=== PATIENT | female | born 1945 | race Caucasian/White ===

== ENCOUNTER 2023-06-24 16:42 | Outpatient (CLI) | payer MEDICARE, BC, SELFPAY | END 2023-06-24 16:43 | disposition home or self-care (01) | LOC: AMB 06-26 09:44 | PROVIDERS: PCP Nurse Practitioner Family; Visit Provider Emergency Medicine Emergency Medical Services | DX: R42 Dizziness and giddiness (principal) | CPT/HCPCS: A0425; A0427 ==

== ENCOUNTER 2023-06-24 17:13 | Emergency (ER) | payer MEDICARE, BC, SELFPAY ==
[2023-06-24 17:34] VITALS: BP 143/76; PULSE 152; RESP 18; TEMP 36.7; O2SAT 97; BMI 31.7
[2023-06-24 18:03] LABS: Basophils Absolute Auto 0.06 K/uL (0.00-0.30); Basophils Percent Auto 1.2 % (0.0-3.0); Eosinophils Absolute Auto 0.22 K/uL (0.00-0.50); Eosinophils Percent Auto 4.4 % (0.0-7.0); Hematocrit 38.5 % (33.0-51.0); Hemoglobin* 11.8 gm/dL (12.0-16.0); Lymphocytes Absolute Auto 1.08 K/uL (0.90-2.90); Lymphocytes Percent Auto 21.5 % (20-44); Mean Corpuscular HGB Conc 31 gm/dL (32-36); Mean Corpuscular Hemoglobin 29 pg (26-34); Mean Corpuscular Volume 96 fL (80-100); Neutrophils Absolute Auto 3.26 K/uL (1.7-7.0); Neutrophils Percent Auto 64.9 % (42.0-72.0); Platelet Count* 216 K/uL (140-440); RDW Coefficient of Variation % 15.7 % (11.5-15.5); Red Blood Count 4.02 m/uL (4.00-5.20); White Blood Count* 5.02 K/uL (4.50-11.00)
--- OUTSIDE RECORDS SUMMARY | 2023-06-24 18:09 | XMS_ITS ---
Author Name Unknown Organization [facility] Address [address] [place] [address] Care Team Providers Care Senior Quality Analyst Name Role Phone Unavailable Unavailable Unavailable Surgery Details Not on file Complications Check Surgery Details section. Procedure Estimated Blood Loss Check Surgery Details section. Procedure Findings Check Surgery Details section. Procedure Specimens Taken Check Surgery Details section.
--- OUTSIDE RECORDS SUMMARY | 2023-06-24 18:09 | XMS_ITS | Clinical Summary ---
Author Name Unknown Organization [facility] Address [place], [place] [address] Care Team Providers Care Personal Development Coach Name Role Phone Allyn Joyner MD Primary Care Provi kristen Allergies Active Allergy Reactions Criticality Noted Date Comments Clonidine *Unknown - Pt Doesn't Remember 02/09 Penicillin *Unknown - Pt Doesn't Remember 02/09 Medications Medication Sig Dispensed Refills Start Date End Date Status allopurinol (ZYLOPRIM) 100 mg tablet Take 100 mg by mouth once daily. 0 Active aspirin (ECOTRIN) 81 mg enteric coated tablet Take 81 mg by mouth once daily. 0 Active Calcium Acetate (PHOS-LO) 667 mg capsule Take 667 mg by mouth 3 times daily with meals. 0 Active carvedilol (COREG) 25 mg tablet Take 25 mg by mouth 2 times daily. 0 Active gabapentin (NEURONTIN) 100 mg capsule Take 100 mg by mouth 3 times daily. 0 Active insulin glargine (LANTUS SOLOSTAR PEN; BASAGLAR KWIKPEN) 100 unit/mL (3 mL) pen Inject 10 Units subcutaneous before bedtime. 0 Active oxyCODONE (ROXICODONE) 5 mg capsule Take 5 mg by mouth every 4 hours if needed for Pain. as needed for back pain 0 Active pravastatin (PRAVACHOL) 20 mg tablet Take 20 mg by mouth once daily. 0 Active torsemide (DEMADEX) 10 mg tablet Take 10 mg by mouth 2 times daily. 0 Active ondansetron (ZOFRAN ODT) [address] 8 mg on the tongue 3 times daily. 0 Active ondansetron (ZOFRAN) 8 mg tablet Take 4 mg by mouth every 8 hours. every 8 hours as needed for nausea 0 Active glipiZIDE (GLUCOTROL) 5 mg tablet Take 2.5 mg by mouth one time. Take 2.5mg daily. 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 Respiratory Rate 18 03/18/2019 11:12 AM SOFTBALL COACH Oxygen Saturation 99% 03/18/2019 11:12 AM SOFTBALL COACH Inhaled Oxygen Concentration - - Weight - - Height - - Body Mass Index - - Plan of Treatment Health Maintenance Due Date Last Done Comments COVID-19 vaccine series (#1) 05/04/1944 Tdap 11/02/1954 Depression screening for age 12+ 1955 BMI (ht and wt on same day) for age 18+ 11/02/1961 Hepatitis C screening for age 18-79 11/02/1961 Tetanus booster 1963 Zoster (shingles) series for age 50+ (1 of 2) 11/02/18 94 DEXA/DXA scan for age 65+ 11/02/2008 Pneumococcal series for age 65+ (1 of 1 - PCV) 009 Influenza for age 65+ 01/09/2023 Advance Directives Documents on File Type Date Recorded Patient Highballer Expl anation Power of Orthopedic Surgeon Care Teams Personal Development Coach Relationship Specialty Start Date End Date Allyn Joyner MD PCP - General Family Practice 02/08/19
--- OUTSIDE RECORDS SUMMARY | 2023-06-24 18:09 | XMS_ITS | Referral Summary ---
Author Name Unknown Organization [facility] Address [address] [place] [address] Care Team Providers Care Sports Teacher Name Role Phone Allyn Alfredo M.D. Primary Care Pro vider Source Comments Patient records contain information from all sites at [facility]. For routine questions regarding patient records, call [phone] during business hours, M-F 8:00 AM - 5:00 PM Central Time. Record requests for emergency care only can be directed to [phone] at any time.[facility] Encounters Date Type Department Care Team Description 06/16/2023 Orders Only [facility] PCP [facility] Allyn Alfredo M.D. 06/15/2023 Orders Only Division of Nephrology and Hypertension in [place], [place] [address] [place] [address] Wilfrid Lincoln Jr., D.OLeida 06/05/2023 Orders Only Division of Nephrology and Hypertension, [facility], in [place], [place] [address] [place] [phone] Jacklyn Mccarthy APRN, C.N.P., M.S.N. 05/27/2023 Orders Only Division of Nephrology and Hypertension in [place], [place] [address] [place] [phone] Sandra Moreno, M.S.N., R.N. 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 05/22/2023 Orders Only Division of Nephrology and Hypertension, [facility], in [place], [place] [address] [place] [address] Jacklyn Mccarthy APRN, C.NLeidaPLeida, M.S.N. 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 05/18/2023 Refill Division of Nephrology and Hypertension in [place], [place] [address] [place] [address] Wilfrid Lincoln Jr., D.O. Med Refill 05/01/2023 11:45 AM [facility] Telemedicine Department of Sleep Medicine in [place], [place] [address], [place] [address] Emilee Emanuel APRN, C.N.P., D.N.P., M.S.N. Apnea Sleep Obstructive (Primary Dx); Periodic Limb Movement Disorder 04/28/2023 Documentation Division of Nephrology and Hypertension in [place], [place] [address] [place] [address] Heather Pitts M.D., Ph.D. 04/27/2023 E-Visit Department of Family Medicine, [facility], in [address] [phone] Allyn Alfredo M.D. Insulin and diarrhea 04/27/2023 Patient Self-Triage [facility] Symptom Dental Scheduler, Provider 04/23/2023 Orders Only Division of Nephrology and Hypertension, [facility], in [place], [place] [address] [place] [phone] Jacklyn Mccarthy APRN, C.NLeidaP., M.S.N. 04/21/2023 Clinical Communication Department of Family [facility], [facility], in [address] [phone] Allyn Alfredo M.D. Form Review ([facility] ( Discharge Order 03/04/23-05/02/23) 04/16/2023 11:52 AM SKIDDER LEVER OPERATOR Anesthesia Event [facility] OR [address] [place] [phone] Livier Guerrero M.D., M.P.H. 04/16/2023 10:47 AM SKIDDER LEVER OPERATOR - 04/16/2023 12:03 PM SKIDDER LEVER OPERATOR Surgery [facility]ST [facility] OR [address] [place] [phone] Christine Warren Jr., M.D. REMOVAL PERITONEAL DIALYSIS CATHETER. 04/16/2023 8:51 AM SKIDDER LEVER OPERATOR - 04/16/2023 1:48 PM SKIDDER LEVER OPERATOR Hospital Encounter [facility] MA[facility] OR [address] [place] [phone] Christine Warren Jr., M.D. Discharge Disposition: Home or Self Care 04/14/2023 11:00 AM SKIDDER LEVER OPERATOR Nurse Only Division of Nephrology and Hypertension in [place], [place] [address] [place] [phone] Wilfrid Licnoln Jr., Delia. Beth Bush, RLeidaN. 04/14/2023 2:30 PM SKIDDER LEVER OPERATOR Comprehensive Visit Division of Pediatric Surgery in [place], [place] [address] [place] [phone] Christine Warren Jr., M.D. Chronic Kidney Disease Stage 5 Glomerular 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); Diabetes Mellitus Type 2 With Diabetic Nephropathy (HCC); Hyperparathyroidism Renal Secondary (HCC); Anemia Of Chronic Renal Disease; Dialysis Peritoneal Status (HCC) 04/14/2023 1:00 PM SKIDDER LEVER OPERATOR Comprehensive Visit Division of Vascular and Endovascular Surgery in [place], [place] [address] [place] [phone] Wilfrid Lincoln Jr., D.O. Morrison, Jonathan J, M.B., Ch.B., Ph.D. Chronic Kidney Disease Stage 5 Glomerular 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); Diabetes Mellitus Type 2 With Diabetic Nephropathy (HCC); Hyperparathyroidism Renal Secondary (HCC); Anemia Of Chronic Renal Disease; Dialysis Peritoneal Status (HCC) 04/14/2023 9:00 AM SKIDDER LEVER OPERATOR - 04/14/2023 11:59 PM SKIDDER LEVER OPERATOR Hospital Encounter Department of Radiology, [place], [place] [address] [place] [phone] Wilfrid Lincoln Jr., D.O. Chronic Kidney Disease Stage 5 Glomerular 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); Diabetes Mellitus Type 2 With Diabetic Nephropathy (HCC); Hyperparathyroidism Renal Secondary (HCC); Anemia Of Chronic Renal Disease; Dialysis Peritoneal Status (HCC); Encounter For Other Preprocedural Examination Discharge Disposition: Home or Self Care 04/08/2023 Orders Only Department of Radiology, [facility] in [address] [phone] Lydia Sommers P.A.-C., M.S. 04/08/2023 Clinical Communication Division of Pediatric Surgery in [place], [place] [address] [place] [phone] Christine Warren Jr., M.D. 04/08/2023 11:46 AM SKIDDER LEVER OPERATOR - 04/08/2023 5:50 PM SKIDDER LEVER OPERATOR Hospital Encounter Department of Radiology in [address] [phone] Wilfrid Lincoln Jr., D.O. Jundt, Michael C, M.D. Chronic Kidney Disease Stage 5 Glomerular 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); Diabetes Mellitus Type 2 With Diabetic Nephropathy (HCC); Hyperparathyroidism Renal Secondary (HCC); Anemia Of Chronic Renal Disease; Dialysis Peritoneal Status (HCC) Discharge Disposition: Home or Self Care 04/07/2023 Clinical Communication Division of Pediatric Surgery in [place], [place] [address] [place] [address] Christine Warren Jr., M.D. 04/07/2023 Documentation Division of Nephrology and Hypertension in [place], [place] [address] [place] [address] Wilfrid Lincoln Jr., D.O. 04/07/2023 Orders Only Division of Nephrology and Hypertension in [place], [place] [address] [place] [address] Wilfrid Lincoln Jr., D.O. Chronic Kidney Disease Stage 5 Glomerular 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) (Primary Dx); Diabetes Mellitus Type 2 With Diabetic Nephropathy (HCC); Hyperparathyroidism Renal Secondary (HCC); Anemia Of Chronic Renal Disease; Dialysis Peritoneal Status (HCC); Encounter For Other Preprocedural Examination 04/07/2023 Orders Only Division of Nephrology and Hypertension in [place], [place] [address] [place] [address] Wilfrid Lincoln Jr., D.O. 03/24/2023 Clinical Communication Division of Nephrology and Hypertension in [place], [place] [address] [place] [address] Wilfrid Lincoln Jr., D.O. Remote Patient Monitoring (Alert Notification: Unable to Begin Service - Patient Declining Cascaded Service/) 03/24/2023 9:35 AM SKIDDER LEVER OPERATOR - 03/24/2023 11:59 PM [facility] Hospital Encounter Division of Cardiovascular Diseases in [place], [place] [address], [place] [address] Wilfrid Lincoln Jr., D.O. Infarction Spleen Discharge Disposition: Home or Self Care from Last 3 Months Allergies Active Allergy Reactions Criticality Noted Date Comments Atorvastatin Myalgia Medium 07/15/2013 tiredness, muscle cramps Clonidine Other (see comments) 10/28/2018 Dizziness, insomnia, dry mouth Oxycodone GI intolerance 02/17/2019 Extreme vomiting Penicillins Other (see comments) 01/24/2019 Unsure (tolerated Ancef before) Medications Medication Sig Dispensed Refills Start Date End Date Status blood-glucose meter,continuous misc Use to monitor blood glucose 1 each 0 04/09/2021 Active calcium acetate,phosphat bind, (PHOSLO) 667 mg (169 mg calcium) capsule TAKE 2 CAPSULES BY MOUTH THREE TIMES A DAY WITH MEALS AND 1 CAPSULE WITH SNACKS 120 capsule 1 04/06/[address] tablet Take 1 tablet by mouth daily. 0 Active folic acid/vit B complex and C (DIALYVITE ORAL) Take 1 tablet by mouth daily. 0 Active docosahexaenoic acid/epa (FISH OIL ORAL) Take 1 capsule by mouth daily. 0 Active blood-glucose meter,continuous (Dexcom G7 Veterinarian Epidemiologist) [facility] Use as directed 3 (three) times a day. 1 each 11 07/29/2022 4 Active blood-glucose sensor (Dexcom G7 Sensor) device 1 Device as directed for 10 days. Apply to skin replace every 10 days 10 each 11 07/29/2022 4 Active BD Ultra-Fine Short Pen Needle 31 gauge x 5/16 needle Inject 4 Injection under the skin daily. 400 each 3 12/25/2022 Active pravastatin (PRAVACHOL) 40 mg tablet TAKE 1 TABLET AT BEDTIME FOR CHOLESTEROL 90 tablet 3 01/01/2023 Active gentamicin (GARAMYCIN) 0.1 % ointment Apply 1 Application topically as directed. Apply to PD catheter site - uses when changes dressing 0 Active acetaminophen (TYLENOL) 500 mg tablet Take 2 tablets (1,000 mg total) by mouth every 6 (six) hours as needed for pain. 0 04/16/2023 Active insulin glargine (Basaglar KwikPen U-100 Insulin) 100 unit/mL (3 mL) injection Inject 4 Units under the skin at bedtime. 15 mL 3 04/28/2023 4 Active sertraline (ZOLOFT) 25 mg tablet Take 1 tablet (25 mg total) by mouth daily. 90 tablet 3 05/19/2023 5 Active pramipexole (MIRAPEX) 0.125 mg tablet Take 1 tablet (0.125 mg total) by mouth at bedtime. 90 tablet 3 05/19/2023 5 Active allopurinoL (ZYLOPRIM) 100 mg tablet Take 1 tablet (100 mg total) by mouth daily. 90 tablet 3 05/19/2023 Active amLODIPine (NORVASC) 5 mg tablet Take 2 tablets (10 mg total) by mouth daily. 180 tablet 3 06/05/2023 5 Active torsemide (DEMADEX) 10 mg tablet Take 1 tablet (10 mg total) by mouth daily. 90 tablet 3 06/05/2023 5 Active omeprazole (PriLOSEC) [address] capsule Take 1 capsule (10 mg total) by mouth every morning before breakfast. 90 capsule 3 06/15/2023 5 Active amLODIPine (NORVASC) 5 mg tablet Take 1 tablet (5 mg total) by mouth daily. 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 Anemia Of Chronic Renal Disease 02/05/2018 Cataract Senile Nuclear Sclerosis Right 10/02/19 18 Overview: Added automatically from request for surgery [id number] Hypertension And Chronic Kidney Disease Stage 5 08/27/2017 Smoking Tobacco Use Personal History 06/22/2015 Chronic Kidney Disease Stage 5 Glomerular Filtration Rate Less Than 15 06/04/2015 Diabetes Mellitus Type 2 With Diabetic Nephropat hy 04/04/2015 Overview: Diabetes Mellitus Secondary CKD Stage III GFR 30-59 Anemia Of Chronic Renal Failure 09/19/2014 Carpal Tunnel Syndrome 10/10/2011 Restless Leg Syndrome 08/22/2011 Periodic Limb Movement Disorder 08/15/2011 Mononeuritis 07/07/2011 Diabetes Mellitus Type 2 With Diabetic Neuropath y 03/14/2011 Overview: Diagnosis Maintenance Updates May 2023 Apnea Sleep Obstructive 03/14/2011 Meniere's Disease 02/24/2011 Overview: date unknown Hyperlipidemia 02/24/2011 Overview: date unknown Cancer Breast Personal History 06/18/2010 Overview: Adenocarcinoma unspecified site of endometrium Radiculopathy Lumbar Resolved Problems Problem Noted Date Diagnosed Date Resolved Date Weakness General 04/04/2021 07/29/2022 Gout Acute 09/19/2014 01/27/2023 Chronic Kidney Disease Stage 4 Glomerular Filtration Rate 15-29 07/15/2013 10/28/2018 Hypertension And Chronic Kid filipe Disease Stage 4 03/14/2011 10/28/2018 Immunizations Name Administration Dates Next Due HepB Adult 05/14/2021,,12/04/2020,2020 Influenza high dose QV(65 ye ars or older) (PF) 02/25/2021,02/28/2020,02/07/2019,2015,04/10/2015 Influenza, Unspecified 02/25/2021,2019,03/17/2016,2014,03/11/2013,02/25/2010 PCV13 09/25/2014 PPD Test 04/15/2021,03/12/2020 PPSV23(Discontinued) 06/14/2009 Pneumococcal Conjugate(PCV), Unspecified 06/14/2009 SARS-COV-2 (COVID-19) - MODERNA(Discontinued) 09/23/2021,03/27/2021,06/29/2020,2020 SARS-COV-2 (COVID-19) - PFIZ ER BIVALENT TS(Discontinued)(12 YEARS OR OLDER) 03/21/2022 Td (Adult), adsorbed 06/14/2009 Tdap 08/28/2020,06/14/2009 influenza high dose (65 year s or older) (PF) 03/04/2022,02/14/2022,02/07/2019,2017,03/30/2017 Social History Tobacco Use Types Packs/Day Years Used Date Smoking Tobacco: Former Cigarettes 0 Q uit: 2012 Smokeless Tobacco: Never Tobacco Cessation:Counseling Given: Not Answered Alcohol Use Standard Drinks/Week Comments Not Currently 0 (1 standard drink = 0.6 oz pur e alcohol) less than monthly Humiliation, Afraid, Rape, and Kick questionnair e Answer Date Recorded Within the last year, have y ou been afraid of your partner or ex-partner? No 09/11/2022 Within the last year, have y ou been humiliated or emotionally abused in other ways by your partner or ex-partner? No Within the last year, have y ou been kicked, hit, slapped, or otherwise physically hurt by your partner or ex-partner? No 09/11/2022 Within the last year, have y ou been raped or forced to have any kind of sexual activity by your partner or ex-partner? No 09/11/2022 Social Connection and Isolation Panel [NHANES] A nswer Date Recorded In a typical week, how many times do you talk on the phone with family, friends, or neighbors? Once a week 09/12/19 How often do you get togethe r with friends or relatives? Once a week 09/11/2022 How often do you attend [facility] or [facility] day services? 1 to 4 times per year 09/11/2022 Do you belong to any clubs o r organizations such as buddhist groups, unions, fraternal or athletic groups, or school groups? No 09/11/2022 How often do you attend meet ings of the clubs or organizations you belong to? 1 to 4 times per year 09/11/2022 Are you , , di vorced, , never , or living with a partner? 09/11/2022 AUDIT-C Answer Date Recorded Q1: How often do you have a drink containing alc ohol? Monthly or less 09/11/2022 Q2: How many drinks containi ng alcohol do you have on a typical day when you are drinking? 1 or 2 09/11/2022 Q3: How often do you have si x or more drinks on one occasion? Never 09/11/2022 Overall Financial Resource Strain (CARDIA) Answe r Date Recorded How hard is it for you to pa y for the very basics like food, housing, medical care, and heating? Somewhat hard 09/11/2022 PHQ-2 Answer Date Recorded PHQ-2 Score 0 02/23/2023 [facility] [place] [facility] Occup[facility] - Occupational Stress Questionnaire Answer Date Recorded Do you feel stress - tense, restless, nervous, or anxious, or unable to sleep at night because your mind is troubled all the time - these days? Not at all 09/11/2022 Exercise Vital Sign Answer Date Recorde d On average, how many days pe r week do you engage in moderate to strenuous exercise (like a brisk walk)? 0 days 09/11/2022 On average, how many minutes do you engage in exercise at this level? 30 min 09/11/2022 Hunger Vital Sign Answer Date Recorded Within the past 12 months, y ou worried that your food would run out before you got the money to buy more. Never true 09/12/19 23 Within the past 12 months, t he food you bought just didn't last and you didn't have money to get more. Never true 09/11/2022 PRAPARE - Transportation Answer Date Re corded In the past 12 months, has l ack of transportation kept you from medical appointments or from getting medications? No 08/2022 In the past 12 months, has l ack of transportation kept you from meetings, work, or from getting things needed for daily living? No 09/11/2022 Housing Stability Vital Sign Answer Jason e Recorded In the last 12 months, was t here a time when you were not able to pay the mortgage or rent on time? No 09/11/2022 In the last 12 months, how many places have you lived? 1 09/11/2022 In the last 12 months, was t here a time when you did not have a steady place to sleep or slept in a mcc (including now)? No 09/11/2022 Depression Answer Date Recor ded PHQ-9 Total Score (max 27) 0 02/23 Nutrition Answer Date Recorded Nutrition: EVOO Fat Source Yes 09/11 On average, how many serving s of fruits and vegetables do you eat per day (serving size is equal to 1 cup or approximately the size of a tennis ball)? 2-3 09/11/2022 Dental Answer Date Recorded Dental: Regular Dentist Yes 11/04/19 21 Employment Answer Date Recorded Employment status Retired 09/11/2022 Education Answer Date Recorded What is the highest level of school you have completed or the highest degree you have received? Some college, no degree 10/24/2018 Sex and Gender Information Value Date Recorded Sex Assigned at Female 03/27/2017 3:30 PM SKIDDER LEVER OPERATOR Gender Identity Female 03/27/2017 3:30 PM SKIDDER LEVER OPERATOR Sexual Orientation Straight 03/27/2017 3: 30 PM SKIDDER LEVER OPERATOR Last Filed Vital Signs Vital Sign Reading Time Taken Comments Blood Pressure 157/52 04/16/2023 1:15 PM SKIDDER LEVER OPERATOR Pulse 79 04/16/2023 1:25 PM SKIDDER LEVER OPERATOR Temperature 36.7 ??C (98.1 ??F) 04/16/2023 1:00 PM CS T Respiratory Rate 13 04/16/2023 1:25 PM SKIDDER LEVER OPERATOR Oxygen Saturation 99% 04/16/2023 1:25 PM SKIDDER LEVER OPERATOR Inhaled Oxygen Concentration - - Weight 85.5 kg (188 lb 7.9 oz) 04/08/2023 12:37 PM SKIDDER LEVER OPERATOR Height 163 cm (5' 4.17) 03/10/2023 2:13 PM CDT Body Mass Index 32.18 03/10/2023 2:13 PM CDT Plan of Treatment Upcoming Encounters Date Type Department Care Team (Latest Contact Info) Description 07/09/2023 8:20 AM SKIDDER LEVER OPERATOR Appointment Department of Laboratory Medicine in [address] [phone] Allyn Alfredo M.D. [address] [place] [phone] 07/09/2023 9:15 AM SKIDDER LEVER OPERATOR Office Visit Department of Family Medicine, [facility], in [address] [phone] Allyn Alfredo M.D. [address] [place] [phone] 07/16/2023 12:06 PM SKIDDER LEVER OPERATOR Hospital Encounter Post Anesthesia Care Unit in [place], [place] [address] [place] [phone] Cristhain Grant M.B., Ch.B., Ph.D. [address] [place] [phone] 07/16/2023 12:06 PM SKIDDER LEVER OPERATOR - 07/16/2023 3:35 PM SKIDDER LEVER OPERATOR Surgery [facility]ST [facility] MAIN OR [address] [place] [phone] Cristhian Grant M.B., Ch.B., Ph.D. [address] [place] [address] CREATION FISTULA RADIOCEPHALIC ARTERIOVENOUS 07/20/2023 11:00 AM CDT Office Visit Department of Orthopedic Surgery in [address] [phone] Cindy Walker D.PLeidaM. [address] [place] [phone] Discharge Disposition: Home or Self Care 08/25/2023 3:15 PM CDT Telemedicine Department of Sleep Medicine in [place], [place] [address] [phone] Emilee Emanuel APRN, C.N.P., D.N.P., M.S.N. [address] [phone] Scheduled Procedures Name Priority Associated Diagnoses Date/Ti me CREATION FISTULA RADIOCEPHALIC ARTERIOVENOUS Chronic Kidney Disease Stage 5 Glomerular 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) 07/16/2023 12:06 PM SKIDDER LEVER OPERATOR CREATION FISTULA BRACHIOCEPHALIC ARTERIOVENOUS Chronic Kidney Disease Stage 5 Glomerular 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) 07/16/2023 12:06 PM SKIDDER LEVER OPERATOR Medical Devices Implanted Type Area Top Cleaner Device Identifier Shelf Expiration Date Model / Serial / Lot Implantable Port Implantable Port Right: Abdomen Description:Peritoneal dialy sis catheter Implantable Port-04/08/20 23 Implanted: (Quantity not on file) Implantable Port Right: Chest Description:Dialysis port Dexcom Misc Other Abdomen +17.0d Implanted:Qty : 1 on 10/26/2017 by Lalo Carroll M.D. at [facility] Ocular Lens Right: Eye [employer] (Previously ANDRADE) 08/01/2021 [id number] / [id number] / +19.5d Implanted:Qty : 1 on 11/09/2017 by Lalo Carroll M.D. at [facility] Ocular Lens Left: Eye [employer] (Previously ANDRADE) 04/14/2021 [id number] / [id number] / Procedures Procedure Name Priority Date/Time Associated Diagnosis Comments GLUCOSE POCT, B Routine 04/16/2023 1:02 PM SKIDDER LEVER OPERATOR GLUCOSE POCT, B Routine 04/16/2023 12:22 PM SKIDDER LEVER OPERATOR REMOVAL PERITONEAL DIALYSIS CATHETER 04/16/2023 11:37 AM SKIDDER LEVER OPERATOR Dialysis Peritoneal Status (HCC) Case Notes X RAY DEVELOPER [id number], tpu 9 GLUCOSE POCT, B Routine 04/16/2023 11:27 AM SKIDDER LEVER OPERATOR US UPPER EXTREMITY BILATERAL DIALYSIS MAPPING RAD - Routine (most inpatients and all outpatients) 04/14/2023 11:58 AM SKIDDER LEVER OPERATOR Chronic Kidney Disease Stage 5 Glomerular 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) Diabetes Mellitus Type 2 With Diabetic Nephropathy (HCC) Hyperparathyroidism Renal Secondary (HCC) Anemia Of Chronic Renal Disease Dialysis Peritoneal Status (HCC) Encounter For Other Preprocedural Examination IR DIALYSIS / HIGH FLOW CATHETER PLACEMENT RAD - Routine (most inpatients and all outpatients) 04/08/2023 1:44 PM SKIDDER LEVER OPERATOR Chronic Kidney Disease Stage 5 Glomerular 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) Diabetes Mellitus Type 2 With Diabetic Nephropathy (HCC) Hyperparathyroidism Renal Secondary (HCC) Anemia Of Chronic Renal Disease Dialysis Peritoneal Status (HCC) IR DIALYSIS / HIGH FLOW CATHETER REMOVAL RAD - Routine (most inpatients and all outpatients) 04/08/2023 1:44 PM SKIDDER LEVER OPERATOR Chronic Kidney Disease Stage 5 Glomerular 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) Diabetes Mellitus Type 2 With Diabetic Nephropathy (HCC) Hyperparathyroidism Renal Secondary (HCC) Anemia Of Chronic Renal Disease Dialysis Peritoneal Status (HCC) BACTERIAL CULTURE, AEROBIC + SUSC Timed 04/08/2023 1:24 PM SKIDDER LEVER OPERATOR GLUCOSE POCT, B Routine 04/08/2023 12:33 PM SKIDDER LEVER OPERATOR from Last 3 Months Results * Glucose, POCT (04/16/2023 1:02 PM SKIDDER LEVER OPERATOR) Only the most recent of4 resultswithin the time period is included. Glucose, POCT, B 120 70 - 140 mg/dL 04/17/2023 5:56 AM SKIDDER LEVER OPERATOR PCLX Site Capillary 04/17/2023 5:56 AM SKIDDER LEVER OPERATOR PCLX Blood 04/16/2023 1:02 PM SKIDDER LEVER OPERATOR 04/17/2023 5:57 AM SKIDDER LEVER OPERATOR Unknown Provider LAB POCT ORDERABLES- MANUAL Performing Organization Address City/State/[facility] Co de Phone Number POC [facility] [address] [place] [address], [place] PCLX [facility] POC [address] [place] [address] * US Upper Extremity Bilateral Dialysis Mapping (04/14/2023 11:58 AM SKIDDER LEVER OPERATOR) Anatomical Region Laterality Modality Upper Extremity, Ultrasound RST LOS, Ultrasound ARZ LOS, Ultrasound FLA LOS, Procedural Bilateral Ultrasound 04/14/2023 12:1 6 PM SKIDDER LEVER OPERATOR Impressions 04/14/2023 12:22 PM SKIDDER LEVER OPERATOR 1. Patent central veins 2. 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 3. Superficial vein diameters as detailed below Narrative 04/14/2023 12:22 PM SKIDDER LEVER OPERATOR EXAM: US UPPER EXTREMITY BILATERAL DIALYSIS MAPPING Exam performed with color and spectral Doppler analysis. COMPARISON: None FINDINGS: RIGHT Deep Vein Assessment: Normal. Central Arterial Assessment: Patent subclavian artery. Probable moderate narrowing right axillary, 253 cm/s ARTERIAL DIAMETERS Brachial artery: 3.5 mm Radial artery: 1.4 mm Ulnar artery: 1.7 mm Distance from right elbow crease to brachial artery bifurcation: 1.7cm below. CEPHALIC VEIN Upper humerus: 2.8 mm Mid humerus: 2.8 mm Lower humerus: 2.1 mm Antecubital fossa: 2.1 mm Upper forearm: 1.1 mm Mid forearm: Wrist: BASILIC VEIN Upper humerus: 5.1 mm Mid humerus: 3.4 mm Lower humerus: 2.0 mm Antecubital fossa: 2.0 mm Upper forearm: 1.1 mm Mid forearm: Wrist: LEFT Deep Vein Assessment: Normal. Central Arterial Assessment: Probable left subclavian artery stenosis, 253 cm/s ARTERIAL DIAMETERS Brachial artery: 3.1 mm Radial artery: 1.5 mm Ulnar artery: 1.9 mm Distance from left elbow crease to brachial artery bifurcation: 2.1cm below. CEPHALIC VEIN: Too small BASILIC VEIN Upper humerus: 5.0 mm Mid humerus: 4.3 mm Lower humerus: 3.6 mm Antecubital fossa: 3.1 mm Upper forearm: 1.5 mm Mid forearm: Wrist: Dubose: ( * ) = too small (<2mm) or not visualized ( X ) = not examined Procedure Note Wilfrid Yang M.D. - 04/14/2023 EXAM: US UPPER EXTREMITY BILATERAL DIALYSIS MAPPING Exam performed with color and spectral Doppler analysis. COMPARISON: None FINDINGS: RIGHT Deep Vein Assessment: Normal. Central Arterial Assessment: Patent subclavian artery. Probable moderatenarrowing right axillary, 253 cm/s ARTERIAL DIAMETERS Brachial artery: 3.5 mm Radial artery: 1.4 mm Ulnar artery: 1.7 mm Distance from right elbow crease to brachial artery bifurcation: 1.7cmbelow. CEPHALIC VEIN Upper humerus: 2.8 mm Mid humerus: 2.8 mm Lower humerus: 2.1 mm Antecubital fossa: 2.1 mm Upper forearm: 1.1 mm Mid forearm: Wrist: BASILIC VEIN Upper humerus: 5.1 mm Mid humerus: 3.4 mm Lower humerus: 2.0 mm Antecubital fossa: 2.0 mm Upper forearm: 1.1 mm Mid forearm: Wrist: LEFT Deep Vein Assessment: Normal. 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 CEPHALIC VEIN: Too small BASILIC VEIN Upper humerus: 5.0 mm Mid humerus: 4.3 mm Lower humerus: 3.6 mm Antecubital fossa: 3.1 mm Upper forearm: 1.5 mm Mid forearm: Wrist: Dubose: ( * ) = too small (<2mm) or not visualized ( X ) = not examined IMPRESSION: 1. Patent central veins 2. 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 3. Superficial vein diameters as detailed below Wilfrid Lincoln Jr., D.O. IMG US ANDREA JOSHI * IR Dialysis / High Flow Catheter Removal (04/08/2023 1:44 PM SKIDDER LEVER OPERATOR) Anatomical Region Laterality Modality Body, Vascular Interventiona l RST LOS, Vascular Interventional ARZ LOS, Vascular Interventional FLA LOS N/A X-Ray Angiography 04/08/2023 1:59 PM SKIDDER LEVER OPERATOR Impressions 04/08/2023 2:07 PM SKIDDER LEVER OPERATOR 1. Removal of the existing poorly functioning right IJ tunneled Palindrome dialysis catheter. 2. Placement of a new right IJ tunneled 14-St Helenian AshSplit dialysis catheter, which is ready for immediate use. 3. Patient will be placed on a 5 day course of Bactrim for suspected infection at the old right neck venotomy site. She is instructed to follow up with either her nephrology team or primary care provider. NR Narrative 04/08/2023 2:07 PM SKIDDER LEVER OPERATOR EXAM: IR DIALYSIS / HIGH FLOW CATHETER PLACEMENT, IR DIALYSIS / HIGH FLOW CATHETER REMOVAL CLINICAL HISTORY: Patient is a 77-year-old female with end-stage renal disease on dialysis. She underwent placement of a tunneled dialysis catheter on 02/25/2023. Recently, poor flows noted from the dialysis catheter. Patient also notes redness and some purulent drainage from the right neck venotomy site. Plan for tunneled dialysis catheter removal and placement of a new tunneled dialysis catheter at a new site. TECHNIQUE: Right anterior chest wall and the existing dialysis catheter were prepped and draped in normal sterile fashion. 1% buffered lidocaine used for local anesthesia. Fluoroscopic spot image demonstrates a right internal jugular vein tunneled palindrome catheter with tip in the right atrium. The retention cuff was dissected free and the catheter removed intact and in its entirety. Hemostasis achieved with manual pressure over the right neck base. Dressing was applied over the old right anterior chest wall dermatotomy. Next under ultrasound guidance, a 21-gauge needle was introduced into the patent and compressible right internal jugular vein with a permanent ultrasound image created and stored. The site was chosen lateral and remote from the existing right venotomy site. Guidewire was advanced into the inferior vena cava. Tract was serially dilated and a peel-away sheath was advanced over the wire. Subcutaneous tunnel was then created inferior to the right clavicle with 1% lidocaine. A tunnel site was chosen higher on the right chest wall than the previous site to account for retraction of the catheter that occurs when the patient sits upright. Small skin aryne was made and the catheter was advanced through the tunnel and subsequently through the peel-away sheath such that the tip terminated in the mid right atrium. Both lumens flushed and aspirated well. Catheter was secured to the skin with 2-0 Prolene purse string suture. Neck base puncture was closed with 4-0 Vicryl and Dermabond. Sterile dressing applied. Sterile dressings were applied. Patient tolerated the procedure well. No immediate complications. For placement of this central venous access, we followed catheter checklist and a standardized protocol. The position of the catheter tip was confirmed under fluoroscopic guidance, and a final image of the catheter position was obtained. Ready for use. ?? PREPROCEDURE: Patient seen, evaluated, history reviewed, and approved for sedation. Airway, heart, and lung exam satisfactory for sedation. Discussed risks, benefits, alternatives for procedure, and/or sedation. The roles and responsibilities of care team members, residents, and fellows were discussed. Patient understands information and questions answered. Informed consent obtained from the patient. Immediately prior to starting the procedure, in the presence of the assisting personnel, a procedural pause was conducted to verify correct patient identity and verification of procedure to be performed, and as applicable, correct side and site, correct patient position, availability of implants, special equipment, or special requirements, and all image and specimen identification data. INTRAPROCEDURE: Moderate sedation was administered by sedation nurse under my supervision. The patient was continuously monitored with real time oxygen saturation, heart rate, ECG rhythm strip and blood pressure throughout administration of the sedation and performance of the procedure. The total intra-procedural sedation time was: 25 minutes. Procedure Note Dragan Seymour M.D. - 04/08/2023 EXAM: IR DIALYSIS / HIGH FLOW CATHETER PLACEMENT, IR DIALYSIS / HIGH FLOWCATHETER REMOVAL CLINICAL HISTORY: Patient is a 77-year-old female with end-stage renaldisease on dialysis. She underwent placement of a tunneled dialysiscatheter on 02/25/2023. Recently, poor flows noted from the dialysiscatheter. Patient also notes redness and some purulent drainage from the right neck venotomy site. Plan for tunneleddialysis catheter removal and placement of a new tunneled dialysiscatheter at a new site. TECHNIQUE: Right anterior chest wall and the existing dialysis catheterwere prepped and draped in normal sterile fashion. 1% buffered lidocaineused for local anesthesia. Fluoroscopic spot image demonstrates a rightinternal jugular vein tunneled palindrome catheter with tip in the right atrium. The retention cuff wasdissected free and the catheter removed intact and in its entirety.Hemostasis achieved with manual pressure over the right neck base.Dressing was applied over the old right anterior chest wall dermatotomy. Next under ultrasound guidance, a 21-gauge needle was introduced into thepatent and compressible right internal jugular vein with a permanentultrasound image created and stored. The site was chosen lateral andremote from the existing right venotomy site. Guidewire was advanced into the inferior vena cava. Tract wasserially dilated and a peel-away sheath was advanced over the wire.Subcutaneous tunnel was then created inferior to the right clavicle with1% lidocaine. A tunnel site was chosen higher on the right chest wall than the previous site to account for retractionof the catheter that occurs when the patient sits upright. Small skin nickwas made and the catheter was advanced through the tunnel and subsequentlythrough the peel-away sheath such that the tip terminated in the mid right atrium. Both lumens flushedand aspirated well. Catheter was secured to the skin with 2-0 Prolenepurse string suture. Neck base puncture was closed with 4-0 Vicryl andDermabond. Sterile dressing applied. Sterile dressings were applied. Patient tolerated the procedure well. Noimmediate complications. For placement of this central venous access, we followed catheterchecklist and a standardized protocol. The position of the catheter tipwas confirmed under fluoroscopic guidance, and a final image of thecatheter position was obtained. Ready for use. PREPROCEDURE: Patient seen, evaluated, history reviewed, and approved forsedation. Airway, heart, and lung exam satisfactory for sedation.Discussed risks, benefits, alternatives for procedure, and/or sedation.The roles and responsibilities of care team members, residents, and fellows were discussed. Patient understandsinformation and questions answered. Informed consent obtained from thepatient. Immediately prior to starting the procedure, in the presence ofthe assisting personnel, a procedural pause was conducted to verify correct patient identity and verificationof procedure to be performed, and as applicable, correct side and site,correct patient position, availability of implants, special equipment, orspecial requirements, and all image and specimen identification data. INTRAPROCEDURE: Moderate sedation was administered by sedation nurse undermy supervision. The patient was continuously monitored with real timeoxygen saturation, heart rate, ECG rhythm strip and blood pressurethroughout administration of the sedation and performance of the procedure. The total intra-procedural sedation timewas: 25 minutes. IMPRESSION: 1. Removal of the existing poorly functioning right IJ tunneled Palindromedialysis catheter. 2. Placement of a new right IJ tunneled 14-St Helenian AshSplit dialysiscatheter, which is ready for immediate use. 3. Patient will be placed on a 5 day course of Bactrim for suspectedinfection at the old right neck venotomy site. She is instructed to followup with either her nephrology team or primary care provider. NR Wilfrid Lincoln Jr., Jayden.OLeida IMG IR PROCE DURES * IR Dialysis / High Flow Catheter Placement (04/08/2023 1:44 PM SKIDDER LEVER OPERATOR) Anatomical Region Laterality Modality Body, Vascular Interventiona l RST LOS, Vascular Interventional ARZ LOS, Vascular Interventional FLA LOS N/A X-Ray Angiography 04/08/2023 1:59 PM SKIDDER LEVER OPERATOR Impressions 04/08/2023 2:07 PM SKIDDER LEVER OPERATOR 1. Removal of the existing poorly functioning right IJ tunneled Palindrome dialysis catheter. 2. Placement of a new right IJ tunneled 14-St Helenian AshSplit dialysis catheter, which is ready for immediate use. 3. Patient will be placed on a 5 day course of Bactrim for suspected infection at the old right neck venotomy site. She is instructed to follow up with either her nephrology team or primary care provider. NR Narrative 04/08/2023 2:07 PM SKIDDER LEVER OPERATOR EXAM: IR DIALYSIS / HIGH FLOW CATHETER PLACEMENT, IR DIALYSIS / HIGH FLOW CATHETER REMOVAL CLINICAL HISTORY: Patient is a 77-year-old female with end-stage renal disease on dialysis. She underwent placement of a tunneled dialysis catheter on 02/25/2023. Recently, poor flows noted from the dialysis catheter. Patient also notes redness and some purulent drainage from the right neck venotomy site. Plan for tunneled dialysis catheter removal and placement of a new tunneled dialysis catheter at a new site. TECHNIQUE: Right anterior chest wall and the existing dialysis catheter were prepped and draped in normal sterile fashion. 1% buffered lidocaine used for local anesthesia. Fluoroscopic spot image demonstrates a right internal jugular vein tunneled palindrome catheter with tip in the right atrium. The retention cuff was dissected free and the catheter removed intact and in its entirety. Hemostasis achieved with manual pressure over the right neck base. Dressing was applied over the old right anterior chest wall dermatotomy. Next under ultrasound guidance, a 21-gauge needle was introduced into the patent and compressible right internal jugular vein with a permanent ultrasound image created and stored. The site was chosen lateral and remote from the existing right venotomy site. Guidewire was advanced into the inferior vena cava. Tract was serially dilated and a peel-away sheath was advanced over the wire. Subcutaneous tunnel was then created inferior to the right clavicle with 1% lidocaine. A tunnel site was chosen higher on the right chest wall than the previous site to account for retraction of the catheter that occurs when the patient sits upright. Small skin rayne was made and the catheter was advanced through the tunnel and subsequently through the peel-away sheath such that the tip terminated in the mid right atrium. Both lumens flushed and aspirated well. Catheter was secured to the skin with 2-0 Prolene purse string suture. Neck base puncture was closed with 4-0 Vicryl and Dermabond. Sterile dressing applied. Sterile dressings were applied. Patient tolerated the procedure well. No immediate complications. For placement of this central venous access, we followed catheter checklist and a standardized protocol. The position of the catheter tip was confirmed under fluoroscopic guidance, and a final image of the catheter position was obtained. Ready for use. ?? PREPROCEDURE: Patient seen, evaluated, history reviewed, and approved for sedation. Airway, heart, and lung exam satisfactory for sedation. Discussed risks, benefits, alternatives for procedure, and/or sedation. The roles and responsibilities of care team members, residents, and fellows were discussed. Patient understands information and questions answered. Informed consent obtained from the patient. Immediately prior to starting the procedure, in the presence of the assisting personnel, a procedural pause was conducted to verify correct patient identity and verification of procedure to be performed, and as applicable, correct side and site, correct patient position, availability of implants, special equipment, or special requirements, and all image and specimen identification data. INTRAPROCEDURE: Moderate sedation was administered by sedation nurse under my supervision. The patient was continuously monitored with real time oxygen saturation, heart rate, ECG rhythm strip and blood pressure throughout administration of the sedation and performance of the procedure. The total intra-procedural sedation time was: 25 minutes. Procedure Note Dragan Seymour M.D. - 04/08/2023 EXAM: IR DIALYSIS / HIGH FLOW CATHETER PLACEMENT, IR DIALYSIS / HIGH FLOWCATHETER REMOVAL CLINICAL HISTORY: Patient is a 77-year-old female with end-stage renaldisease on dialysis. She underwent placement of a tunneled dialysiscatheter on 02/25/2023. Recently, poor flows noted from the dialysiscatheter. Patient also notes redness and some purulent drainage from the right neck venotomy site. Plan for tunneleddialysis catheter removal and placement of a new tunneled dialysiscatheter at a new site. TECHNIQUE: Right anterior chest wall and the existing dialysis catheterwere prepped and draped in normal sterile fashion. 1% buffered lidocaineused for local anesthesia. Fluoroscopic spot image demonstrates a rightinternal jugular vein tunneled palindrome catheter with tip in the right atrium. The retention cuff wasdissected free and the catheter removed intact and in its entirety.Hemostasis achieved with manual pressure over the right neck base.Dressing was applied over the old right anterior chest wall dermatotomy. Next under ultrasound guidance, a 21-gauge needle was introduced into thepatent and compressible right internal jugular vein with a permanentultrasound image created and stored. The site was chosen lateral andremote from the existing right venotomy site. Guidewire was advanced into the inferior vena cava. Tract wasserially dilated and a peel-away sheath was advanced over the wire.Subcutaneous tunnel was then created inferior to the right clavicle with1% lidocaine. A tunnel site was chosen higher on the right chest wall than the previous site to account for retractionof the catheter that occurs when the patient sits upright. Small skin nickwas made and the catheter was advanced through the tunnel and subsequentlythrough the peel-away sheath such that the tip terminated in the mid right atrium. Both lumens flushedand aspirated well. Catheter was secured to the skin with 2-0 Prolenepurse string suture. Neck base puncture was closed with 4-0 Vicryl andDermabond. Sterile dressing applied. Sterile dressings were applied. Patient tolerated the procedure well. Noimmediate complications. For placement of this central venous access, we followed catheterchecklist and a standardized protocol. The position of the catheter tipwas confirmed under fluoroscopic guidance, and a final image of thecatheter position was obtained. Ready for use. PREPROCEDURE: Patient seen, evaluated, history reviewed, and approved forsedation. Airway, heart, and lung exam satisfactory for sedation.Discussed risks, benefits, alternatives for procedure, and/or sedation.The roles and responsibilities of care team members, residents, and fellows were discussed. Patient understandsinformation and questions answered. Informed consent obtained from thepatient. Immediately prior to starting the procedure, in the presence ofthe assisting personnel, a procedural pause was conducted to verify correct patient identity and verificationof procedure to be performed, and as applicable, correct side and site,correct patient position, availability of implants, special equipment, orspecial requirements, and all image and specimen identification data. INTRAPROCEDURE: Moderate sedation was administered by sedation nurse undermy supervision. The patient was continuously monitored with real timeoxygen saturation, heart rate, ECG rhythm strip and blood pressurethroughout administration of the sedation and performance of the procedure. The total intra-procedural sedation timewas: 25 minutes. IMPRESSION: 1. Removal of the existing poorly functioning right IJ tunneled Palindromedialysis catheter. 2. Placement of a new right IJ tunneled 14-St Helenian AshSplit dialysiscatheter, which is ready for immediate use. 3. Patient will be placed on a 5 day course of Bactrim for suspectedinfection at the old right neck venotomy site. She is instructed to followup with either her nephrology team or primary care provider. NR Wilfrid Lincoln Jr., D.O. IMG IR ANDREA JOSHI * Bacterial Culture, Aerobic + Susceptibility (04/08/2023 1:24 PM SKIDDER LEVER OPERATOR) Bacterial Culture, Aerobic + Susc No growth after 5 days of incubation. 04/13/2023 8:01 AM SKIDDER LEVER OPERATOR DTL Device (Catheter Tip) 04/08/2023 1:24 PM SKIDDER LEVER OPERATOR 04/08/2023 2:10 PM SKIDDER LEVER OPERATOR Comment:Specimen Source Site : Device Wilfrid Lincoln Jr., D.O. LAB MICROBIO LOGY - GENERAL ORDERABLES [facility] [address] [place] [address], [place] [facility] [address] [place] [address] from Last 3 Months Advance Directives For more information, please contact: [phone] Documents on File Type Date Recorded Patient Nurse Emergency Expl anation Advance Directives 06/22/2015 12:00 AM Leg acy document. See document viewer. Advance Directives 06/22/2015 12:00 AM Leg acy document. See document viewer. Latest Code Status on File Code Status Date Activated Date Inactivated Comments Full Code 02/23/2023 12:10 AM 03/01/2023 3:54 PM Question Answer Comments Full Code: Discussed Code Status History Code Status Date Activated Date Inactivated Comments Full Code 04/04/2021 3:43 AM 04/06/2021 6:46 PM Question Answer Comments Full Code: Discussed Care Teams Sports Teacher Relationship Specialty Start Date End Date Allyn Alfredo M.D. [id number] [id number] PCP - General Family Medicine 04/05/21
--- OUTSIDE RECORDS SUMMARY | 2023-06-24 18:09 | XMS_ITS | Clinical Summary ---
Author Name Unknown Organization [facility] Address [address] [place] [address] Care Team Providers Care Corporate Statistical Financial Analyst Name Role Phone Allyn Alfredo M.D. Primary Care Pro vider Source Comments Patient records contain information from all sites at [facility]. For routine questions regarding patient records, call [phone] during business hours, M-F 8:00 AM - 5:00 PM Central Time. Record requests for emergency care only can be directed to [phone] at any time.[facility] Allergies Active Allergy Reactions Criticality Noted Date [...] daily. 0 Active blood-glucose meter,continuous (Dexcom G7 Bailing Machine Operator) misc Use as directed 3 (three) times a day. 1 each 07/29/2022 4 Active blood-glucose sensor (Dexcom G7 Sensor) device 1 Device as directed for 10 days. Apply to skin replace every 10 days 10 each 07/29/2022 4 Active BD Ultra-Fine Short Pen [...] Overview: Added automatically from request for surgery [id number] Hypertension And Chronic Kidney Disease Stage 5 [...] Kid filipe Disease Stage 4 03/14/2011 10/28/2018 Encounters Date Type Department Care Team Description 06/16/2023 Orders Only [facility] Allyn Alfredo M.D. 06/15/2023 Orders Only Division of Nephrology and Hypertension in [place], [place] [address] [place] [address] Wilfrid Lincoln Jr., D.O. 06/05/2023 Orders Only Division of Nephrology and Hypertension, [facility], in [place], [place] [address] [place] [address] Jacklyn Mccarthy APRN C.N.PLeida, M.S.N. 05/27/2023 Orders Only Division of Nephrology and Hypertension in [place], [place] [address] [place] [address] Sandra Moreno M.S.N., R.N. 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 05/22/2023 Orders Only Division of Nephrology and Hypertension, [facility], in [place], [place] [address] [place] [address] Jacklyn Mccarthy APRN C.N.P., M.S.N. 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 05/18/2023 Refill Division of Nephrology and Hypertension in [place], [place] [address] [place] [phone] Wilfrid Lincoln Jr., D.O. Med Refill 05/01/2023 11:45 AM DIRECTOR TRANSLATIONAL Telemedicine Department of Sleep Medicine in [place], [place] [address] [place] [address] Emilee Emanuel APRN, C.N.P., D.N.P., M.S.N. Apnea Sleep Obstructive (Primary Dx); Periodic Limb Movement Disorder 04/28/2023 Documentation Division of Nephrology and Hypertension in [place], [place] [address] [place] [phone] Heather Pitts M.D., Ph.D. 04/27/2023 E-Visit Department of Family Medicine, [facility], in [address] [address] Allyn Alfredo M.D. Insulin and diarrhea 04/27/2023 Patient Self-Triage [facility] CARE Symptom Bingo Manager, Provider 04/23/2023 Orders Only Division of Nephrology and Hypertension, [facility], in [place], [place] [address] [place] [address] Jacklyn Mccarthy APRN, C.N.PLeida, M.S.N. 04/21/2023 Clinical Communication Department of Family Medicine, [facility], in [address] [phone] Allyn Alfredo M.D. Form Review ([facility] ( Discharge Order 03/04/23-05/02/23) 04/16/2023 11:52 AM DIRECTOR TRANSLATIONAL Anesthesia Event [facility] [address] [place] [phone] Livier Guerrero M.D., M.P.H. 04/16/2023 10:47 AM DIRECTOR TRANSLATIONAL - 04/16/2023 12:03 PM DIRECTOR TRANSLATIONAL Surgery [facility] [address] [place] [phone] Christine Warren Jr., M.D. REMOVAL PERITONEAL DIALYSIS CATHETER. 04/16/2023 8:51 AM DIRECTOR TRANSLATIONAL - 04/16/2023 1:48 PM DIRECTOR TRANSLATIONAL Hospital Encounter [facility] [address] [place] [address] Christine Warren Jr., M.D. Discharge Disposition: Home or Self Care 04/14/2023 2:30 PM DIRECTOR TRANSLATIONAL Comprehensive Visit Division of Pediatric Surgery in [place], [place] [address] [place] [phone] Christine Warren Jr., M.D. Chronic Kidney Disease Stage 5 Glomerular 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); Diabetes Mellitus Type 2 With Diabetic Nephropathy (HCC); Hyperparathyroidism Renal Secondary (HCC); Anemia Of Chronic Renal Disease; Dialysis Peritoneal Status (HCC) 04/14/2023 1:00 PM DIRECTOR TRANSLATIONAL Comprehensive Visit Division of Vascular and Endovascular Surgery in [place], [place] [address] [place] [phone] Wilfrid Lincoln Jr. D.O. Cristhian Grant M.B., Ch.B., Ph.D. Chronic Kidney Disease Stage 5 Glomerular 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); Diabetes Mellitus Type 2 With Diabetic Nephropathy (HCC); Hyperparathyroidism Renal Secondary (HCC); Anemia Of Chronic Renal Disease; Dialysis Peritoneal Status (HCC) 04/14/2023 11:00 AM DIRECTOR TRANSLATIONAL Nurse Only Division of Nephrology and Hypertension in [place], [place] [address] [place] [phone] Wilfrid Lincoln Jr., D.O. Beth Bush, RLeelee. 04/14/2023 9:00 AM DIRECTOR TRANSLATIONAL - 04/14/2023 11:59 PM DIRECTOR TRANSLATIONAL Hospital Encounter Department of Radiology, [facility] in [place], [place] [address] [place] [phone] Wilfrid Lincoln Jr., D.O. Chronic Kidney Disease Stage 5 Glomerular 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); Diabetes Mellitus Type 2 With Diabetic Nephropathy (HCC); Hyperparathyroidism Renal Secondary (HCC); Anemia Of Chronic Renal Disease; Dialysis Peritoneal Status (HCC); Encounter For Other Preprocedural Examination Discharge Disposition: Home or Self Care 04/08/2023 11:46 AM DIRECTOR TRANSLATIONAL - 04/08/2023 5:50 PM DIRECTOR TRANSLATIONAL Hospital Encounter Department of Radiology in [place], [place] [address] [place] [phone] Wilfrid Lincoln Jr., D.O. Jundt, Michael C, M.D. Chronic Kidney Disease Stage 5 Glomerular 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); Diabetes Mellitus Type 2 With Diabetic Nephropathy (HCC); Hyperparathyroidism Renal Secondary (HCC); Anemia Of Chronic Renal Disease; Dialysis Peritoneal Status (HCC) Discharge Disposition: Home or Self Care 04/08/2023 Orders Only Department of Radiology, [facility] in [place], [place] [address] [place] [phone] Lydia Sommers P.A.-C., M.S. 04/08/2023 Clinical Communication Division of Pediatric Surgery in [place], [place] [address] [place] [phone] Christine Warren Jr., M.D. 04/07/2023 Clinical Communication Division of Pediatric Surgery in [place], [place] [address] [place] [phone] Christine Warren Jr., M.D. 04/07/2023 Documentation Division of Nephrology and Hypertension in [place], [place] [address] [place] [phone] Wilfrid Lincoln Jr., D.OLeida 04/07/2023 Orders Only Division of Nephrology and Hypertension in [place], [place] [address] [place] [phone] Wilfrid Lincoln Jr., Jayden.OLeida Chronic Kidney Disease Stage 5 Glomerular 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) (Primary Dx); Diabetes Mellitus Type 2 With Diabetic Nephropathy (HCC); Hyperparathyroidism Renal Secondary (HCC); Anemia Of Chronic Renal Disease; Dialysis Peritoneal Status (HCC); Encounter For Other Preprocedural Examination 04/07/2023 Orders Only Division of Nephrology and Hypertension in [place], [place] [address] [place] [phone] Wilfrid Lincoln Jr., D.OLeida 03/24/2023 9:35 AM DIRECTOR TRANSLATIONAL - 03/24/2023 11:59 PM DIRECTOR TRANSLATIONAL Hospital Encounter Division of Cardiovascular Diseases in [place], [place] [address] [place] [address] Wilfrid Lincoln Jr., D.O. Infarction Spleen Discharge Disposition: Home or Self Care 03/24/2023 Clinical Communication Division of Nephrology and Hypertension in [place], [place] [address] [place] [address] Wilfrid Lincoln Jr., D.O. Remote Patient Monitoring (Alert Notification: Unable to Begin Service - Patient Declining Cascaded Service/) from Last 3 Months Immunizations Name Administration Dates Next Due HepB [...] (65 year s or older) (PF) 03/04/2022,02/14/2022,02/07/2019,2017,03/30/2017 Family History Medical History Relation Name Comments Skin cancer Daughter Radha Dementia Father Alexandrea Rian Diabetes Father Alexandrea Guamanhlbrad Hypertension Father Merle Rowenahlberg Cataracts Mother Linda Rain Diabetes Mother [place] Rowenahlberg Hypertension Mother [place] Rowenahlberg Anesthesia problems Neg Hx Relation Name Status Comments Daughter Radha Father Merdipika Wahlberg Mother Linda Rain Social History Tobacco Use Types Packs/Day Years Used Date Smoking Tobacco: Former Cigarettes 0 Q uit: 2013 Smokeless Tobacco: Never Tobacco Cessation:Counseling Given: Not [...] week 09/11/2022 How often do you attend chur ch or jewish services? 1 to 4 times per year 09/11/2022 Do you belong to any clubs o r organizations such as synagogue groups, unions, fraternal or athletic groups, or [...] Answer Date Recorded PHQ-2 Score 0 02/23/2023 [facility] - Occupational Stress [...] place to sleep or slept in a senior living (including now)? No 09/11/2022 Depression Answer Date [...] Date Recorded Dental: Regular Dentist Yes 11/04/19 Employment Answer Date Recorded Employment status Retired 09/11/2022 Education Answer Date Recorded What is the highest level of school you have completed or the highest degree you have received? Some college, no degree 10/24/2018 Sex and Gender Information Value Date Recorded Sex Assigned at Female 03/27/2017 3:30 PM DIRECTOR TRANSLATIONAL Gender Identity Female 03/27/2017 3:30 PM DIRECTOR TRANSLATIONAL Sexual Orientation Straight 03/27/2017 3: 30 PM DIRECTOR TRANSLATIONAL Last Filed Vital Signs Vital Sign Reading Time Taken Comments Blood Pressure 157/52 04/16/2023 1:15 PM DIRECTOR TRANSLATIONAL Pulse 79 04/16/2023 1:25 PM DIRECTOR TRANSLATIONAL Temperature 36.7 ??C (98.1 ??F) 04/16/2023 1:00 PM CS T Respiratory Rate 13 04/16/2023 1:25 PM DIRECTOR TRANSLATIONAL Oxygen Saturation 99% 04/16/2023 1:25 PM DIRECTOR TRANSLATIONAL Inhaled Oxygen Concentration - - Weight 85.5 kg (188 lb 7.9 oz) 04/08/2023 12:37 PM DIRECTOR TRANSLATIONAL Height 163 cm (5' 4.17) 03/10/2023 2:13 PM CDT Body Mass Index 32.18 03/10/2023 2:13 PM CDT Plan of Treatment Upcoming Encounters Date Type Department Care Team (Latest Contact Info) Description 07/09/2023 8:20 AM DIRECTOR TRANSLATIONAL Appointment Department of Laboratory Medicine in [address] [phone] Allyn Alfredo M.D. [address] [place] [phone] 07/09/2023 9:15 AM DIRECTOR TRANSLATIONAL Office Visit Department of Family Medicine, [facility], in [address] [phone] Allyn Alfredo M.D. [address] [place] [phone] 07/16/2023 12:06 PM DIRECTOR TRANSLATIONAL Hospital Encounter Post Anesthesia Care Unit in [place], [place] [address] [place] [phone] Cristhian Grant M.B., Ch.B., Ph.D. [address] [place] [address] 07/16/2023 12:06 PM DIRECTOR TRANSLATIONAL - 07/16/2023 3:35 PM DIRECTOR TRANSLATIONAL Surgery [facility] [address] [place] [phone] Cristhian Grant M.B., Ch.B., Ph.D. [address] [place] [phone] CREATION FISTULA RADIOCEPHALIC ARTERIOVENOUS 07/20/2023 11:00 AM CDT Office Visit Department of Orthopedic Surgery in [address] [phone] Cindy Walker D.PLeidaMLeida [address] [place] [phone] Discharge Disposition: Home or Self Care 08/25/2023 3:15 PM CDT Telemedicine Department of Sleep Medicine in [place], [place] [address] [place] [address] Emilee Emanuel APRN, C.N.P., D.N.P., M.S.N. [address], [place] [address] Scheduled Procedures Name Priority Associated Diagnoses Date/Ti me CREATION FISTULA RADIOCEPHALIC ARTERIOVENOUS Chronic Kidney Disease Stage 5 Glomerular 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) 07/16/2023 12:06 PM DIRECTOR TRANSLATIONAL CREATION FISTULA BRACHIOCEPHALIC ARTERIOVENOUS Chronic Kidney Disease Stage 5 Glomerular 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) 07/16/2023 12:06 PM DIRECTOR TRANSLATIONAL Health Maintenance Due Date Last Done Comments Zoster Vaccines (1 of 2) 11/02/1964 Diabetes Education 09/10/2018 09/10/2017 (P erformed elsewhere), 07/21/2015 COVID-19 Vaccine (2022-06 4 season) 2023 03/21/2022, 09/23/2021, 03/27/2021, Additional history exists Influenza Vaccine (#1) 2023 , 02/14/2022, 02/25/2021, Additional history exists Depression Screening (Annual PHQ-2) 05/11/2023 Fall Risk Screen (Annual) 05/11/2023 Hemoglobin A1C 07/09/2023 01/08/2023, 07/10, 03/21/2022, Additional history exists Diabetic Office Visit with F oot Exam 07/30/2023 07/29/2022, 07/29/2022, 07/29/2022, Additional history exists Visit: Medicare Annual Wellness 07/31/2023 Dilated Eye Exam 11/19/2023 11/18/2022, (Performed elsewhere), 10/01/2017, Additional history exists Urine Albumin 01/09/2024 01/08/2023, 12/09, 03/12/2020, Additional history exists Creatinine Level (Kidney Fun ction Test) 03/10/2024 03/10/2023, 03/01/2023, 02/28/2023, Additional history exists Office Visit for Blood Press ure Check / Re-check 03/10/2024 03/10/2023 Potassium Level 03/10/2024 03/10/2023, 02/09, 02/28/2023, Additional history exists Sodium Level 03/10/2024 03/10/2023, 02/09, 02/28/2023, Additional history exists Visit: Chronic Disease, age 18+ 03/10/2024 3, 03/10/2023 DTaP,Tdap,and Td Vaccines (3 - Td or Tdap) 08/28/2030 08/28/2020, 06/14/2009, 06/14/2009 Pneumococcal vaccine (65+ years) Completed 09/25/2014, 06/14/2009, 06/14/2009 Mammogram Discontinued 06/08/2015, 05/2011 (Performed elsewhere) Colonoscopy Discontinued 06/27/2015 Colorectal Cancer Surveillance Discontinued Hepatitis B Vaccines Completed 05/14/2021, 01/08/2021, 12/04/2020, Additional history exists CT Colonography Discontinued Cologuard Discontinued Medical Devices Implanted Type Area Quality Review Trainer Device Identifier Shelf Expiration Date Model / Serial / Lot Implantable Port Implantable Port Right: Abdomen Description:Peritoneal dialy sis catheter Implantable Port-04/08/20 Implanted: (Quantity not on file) Implantable Port Right: Chest Description:Dialysis port Dexcom Misc Other Abdomen +17.0d Implanted:Qty : 1 on 10/26/2017 by Lalo Carroll M.D. at [facility] Ocular Lens Right: Eye [employer] (Previously ANDRADE) 08/01/2021 [id number] / [id number] / +19.5d Implanted:Qty : 1 on 11/09/2017 by Lalo Carroll M.D. at [facility] Ocular Lens Left: Eye [employer] (Previously ANDRADE) 04/14/2021 [id number] / [id number] / Procedures Procedure Name Priority Date/Time Associated Diagnosis Comments GLUCOSE POCT, B Routine 04/16/2023 1:02 PM DIRECTOR TRANSLATIONAL GLUCOSE POCT, B Routine 04/16/2023 12:22 PM DIRECTOR TRANSLATIONAL REMOVAL PERITONEAL DIALYSIS CATHETER 04/16/2023 11:37 AM DIRECTOR TRANSLATIONAL Dialysis Peritoneal Status (HCC) Case Notes CONTRACT OFFICER 855, tpu 9 GLUCOSE POCT, B Routine 04/16/2023 11:27 AM DIRECTOR TRANSLATIONAL US UPPER EXTREMITY BILATERAL DIALYSIS MAPPING RAD - Routine (most inpatients and all outpatients) 04/14/2023 11:58 AM DIRECTOR TRANSLATIONAL Chronic Kidney Disease Stage 5 Glomerular 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) Diabetes Mellitus Type 2 With Diabetic Nephropathy (HCC) Hyperparathyroidism Renal Secondary (HCC) Anemia Of Chronic Renal Disease Dialysis Peritoneal Status (HCC) Encounter For Other Preprocedural Examination IR DIALYSIS / HIGH FLOW CATHETER PLACEMENT RAD - Routine (most inpatients and all outpatients) 04/08/2023 1:44 PM DIRECTOR TRANSLATIONAL Chronic Kidney Disease Stage 5 Glomerular 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) Diabetes Mellitus Type 2 With Diabetic Nephropathy (HCC) Hyperparathyroidism Renal Secondary (HCC) Anemia Of Chronic Renal Disease Dialysis Peritoneal Status (HCC) IR DIALYSIS / HIGH FLOW CATHETER REMOVAL RAD - Routine (most inpatients and all outpatients) 04/08/2023 1:44 PM DIRECTOR TRANSLATIONAL Chronic Kidney Disease Stage 5 Glomerular 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) Diabetes Mellitus Type 2 With Diabetic Nephropathy (HCC) Hyperparathyroidism Renal Secondary (HCC) Anemia Of Chronic Renal Disease Dialysis Peritoneal Status (HCC) BACTERIAL CULTURE, AEROBIC + SUSC Timed 04/08/2023 1:24 PM DIRECTOR TRANSLATIONAL GLUCOSE POCT, B Routine 04/08/2023 12:33 PM DIRECTOR TRANSLATIONAL from Last 3 Months Results * Glucose, POCT (04/16/2023 1:02 PM DIRECTOR TRANSLATIONAL) Only the most recent of4 resultswithin the time period is included. Glucose, POCT, B 120 70 - 140 mg/dL 04/17/2023 5:56 AM DIRECTOR TRANSLATIONAL PCLX Site Capillary 04/17/2023 5:56 AM DIRECTOR TRANSLATIONAL PCLX Blood 04/16/2023 1:02 PM DIRECTOR TRANSLATIONAL 04/17/2023 5:57 AM DIRECTOR TRANSLATIONAL Unknown Provider LAB POCT ORDERABLES- MANUAL POC [facility] [address] [place] [address], [place] [facility]CL[facility] POC [address] [place] [address] * US Upper Extremity Bilateral Dialysis Mapping (04/14/2023 11:58 AM DIRECTOR TRANSLATIONAL) Anatomical Region Laterality Modality Upper Extremity, Ultrasound RST LOS, Ultrasound ARZ LOS, Ultrasound FLA LOS, Procedural Bilateral Ultrasound 04/14/2023 12:1 6 PM DIRECTOR TRANSLATIONAL Impressions 04/14/2023 12:22 PM DIRECTOR TRANSLATIONAL 1. Patent central veins 2. 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 3. Superficial vein diameters as detailed below Narrative 04/14/2023 12:22 PM DIRECTOR TRANSLATIONAL EXAM: US UPPER EXTREMITY BILATERAL DIALYSIS MAPPING [...] High Flow Catheter Removal (04/08/2023 1:44 PM DIRECTOR TRANSLATIONAL) Anatomical Region Laterality Modality Body, Vascular Interventiona l RST LOS, Vascular Interventional ARZ LOS, Vascular Interventional FLA LOS N/A X-Ray Angiography 04/08/2023 1:59 PM DIRECTOR TRANSLATIONAL Impressions 04/08/2023 2:07 PM DIRECTOR TRANSLATIONAL 1. Removal of the existing poorly functioning right IJ tunneled Palindrome dialysis catheter. 2. Placement of a new right IJ tunneled 14-Niuean AshSplit dialysis catheter, which is ready for immediate use. 3. Patient will be placed on a 5 day course of Bactrim for suspected infection at the old right neck venotomy site. She is instructed to follow up with either her nephrology team or primary care provider. NR Narrative 04/08/2023 2:07 PM DIRECTOR TRANSLATIONAL EXAM: IR DIALYSIS / HIGH FLOW CATHETER [...] Placement of a new right IJ tunneled 14-Niuean AshSplit dialysiscatheter, which is ready for immediate use. 3. Patient will be placed on a 5 day course of Bactrim for suspectedinfection at the old right neck venotomy site. She is instructed to followup with either her nephrology team or primary care provider. NR Niki Worley Jr.ES * IR Dialysis / High Flow Catheter Placement (04/08/2023 1:44 PM DIRECTOR TRANSLATIONAL) Anatomical Region Laterality Modality Body, Vascular Interventiona l RST LOS, Vascular Interventional ARZ LOS, Vascular Interventional FLA LOS N/A X-Ray Angiography 04/08/2023 1:59 PM DIRECTOR TRANSLATIONAL Impressions 04/08/2023 2:07 PM DIRECTOR TRANSLATIONAL 1. Removal of the existing poorly functioning right IJ tunneled Palindrome dialysis catheter. 2. Placement of a new right IJ tunneled 14-Niuean AshSplit dialysis catheter, which is ready for immediate use. 3. Patient will be placed on a 5 day course of Bactrim for suspected infection at the old right neck venotomy site. She is instructed to follow up with either her nephrology team or primary care provider. NR Narrative 04/08/2023 2:07 PM DIRECTOR TRANSLATIONAL EXAM: IR DIALYSIS / HIGH FLOW CATHETER [...] Placement of a new right IJ tunneled 14-Niuean AshSplit dialysiscatheter, which is ready for immediate use. 3. Patient will be placed on a 5 day course of Bactrim for suspectedinfection at the old right neck venotomy site. She is instructed to followup with either her nephrology team or primary care provider. NR Wilfrid Lincoln Jr., D.O. IMG IR ANDREA JOSHI * Bacterial Culture, Aerobic + Susceptibility (04/08/2023 1:24 PM DIRECTOR TRANSLATIONAL) Bacterial Culture, Aerobic + Susc No growth after 5 days of incubation. 04/13/2023 8:01 AM DIRECTOR TRANSLATIONAL DTL Device (Catheter Tip) 04/08/2023 1:24 PM DIRECTOR TRANSLATIONAL 04/08/2023 2:10 PM DIRECTOR TRANSLATIONAL Comment:Specimen Source Site : Device Christine Worley Jr.OLeida LAB MICROBIO LOGY - GENERAL ORDERABLES [facility] [address] [place] [address], [facility] DTL [facility] [address] [place] [address] from Last 3 Months Advance Directives For more information, please contact: [phone] Documents on File Type Date Recorded Patient Studio Control Operator Expl anation Advance Directives 06/22/2015 12:00 AM [...] Answer Comments Full Code: Discussed Care Teams Corporate Statistical Financial Analyst Relationship Specialty Start Date End Date Allyn Alfredo M.D. [address] [place] [phone] PCP - General Family Medicine 04/05/21
--- OUTSIDE RECORDS SUMMARY | 2023-06-24 18:09 | XMS_ITS ---
Author Name Unknown Organization [facility] Address [address] [place] [address] Care Team Providers Care Clam Grower Name Role Phone Allyn Alfredo M.D. Primary Care Pro vider Procedures Procedure Name Priority Date/Time Associated Diagnosis Comments GLUCOSE POCT, B Routine 04/16/2023 1:02 PM PROTECTION OFFICER GLUCOSE POCT, B Routine 04/16/2023 12:22 PM PROTECTION OFFICER REMOVAL PERITONEAL DIALYSIS CATHETER 04/16/2023 11:37 AM PROTECTION OFFICER Dialysis Peritoneal Status (HCC) Case Notes PERSONAL CAREGIVER [id number], tpu [phone] GLUCOSE POCT, B Routine 04/16/2023 11:27 AM PROTECTION OFFICER US UPPER EXTREMITY BILATERAL DIALYSIS MAPPING RAD - Routine (most inpatients and all outpatients) 04/14/2023 11:58 AM PROTECTION OFFICER Chronic Kidney Disease Stage 5 Glomerular 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) Diabetes Mellitus Type 2 With Diabetic Nephropathy (HCC) Hyperparathyroidism Renal Secondary (HCC) Anemia Of Chronic Renal Disease Dialysis Peritoneal Status (HCC) Encounter For Other Preprocedural Examination IR DIALYSIS / HIGH FLOW CATHETER PLACEMENT RAD - Routine (most inpatients and all outpatients) 04/08/2023 1:44 PM PROTECTION OFFICER Chronic Kidney Disease Stage 5 Glomerular 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) Diabetes Mellitus Type 2 With Diabetic Nephropathy (HCC) Hyperparathyroidism Renal Secondary (HCC) Anemia Of Chronic Renal Disease Dialysis Peritoneal Status (HCC) IR DIALYSIS / HIGH FLOW CATHETER REMOVAL RAD - Routine (most inpatients and all outpatients) 04/08/2023 1:44 PM PROTECTION OFFICER Chronic Kidney Disease Stage 5 Glomerular 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) Diabetes Mellitus Type 2 With Diabetic Nephropathy (HCC) Hyperparathyroidism Renal Secondary (HCC) Anemia Of Chronic Renal Disease Dialysis Peritoneal Status (HCC) BACTERIAL CULTURE, AEROBIC + SUSC Timed 04/08/2023 1:24 PM PROTECTION OFFICER GLUCOSE POCT, B Routine 04/08/2023 12:33 PM PROTECTION OFFICER from Last 3 Months Allergies Active Allergy [...] daily. 0 Active blood-glucose meter,continuous (Dexcom G7 Vacuum Tank Tender) misc Use as directed 3 (three) times [...] 02/05/2018 Cataract Senile Nuclear Sclerosis Right 10/02/19 Overview: Added automatically from request for surgery [id number] Hypertension And Chronic Kidney Disease Stage 5 [...] Adenocarcinoma unspecified site of endometrium Radiculopathy Lumbar Immunizations Name Administration Dates Next Due HepB [...] often do you attend chur ch or hindu services? 1 to 4 times per year 09/11/2022 Do you belong to any clubs o r organizations such as congregation groups, unions, fraternal or athletic groups, or [...] Answer Date Recorded PHQ-2 Score 0 02/23/2023 [facility] - Occupational Stress [...] to sleep or slept in a senior care (including now)? No 09/11/2022 Depression Answer Date [...] Sex Assigned at Female 03/27/2017 3:30 PM PROTECTION OFFICER Gender Identity Female 03/27/2017 3:30 PM PROTECTION OFFICER Sexual Orientation Straight 03/27/2017 3: 30 PM PROTECTION OFFICER Last Filed Vital Signs Vital Sign Reading Time Taken Comments Blood Pressure 157/52 04/16/2023 1:15 PM PROTECTION OFFICER Pulse 79 04/16/2023 1:25 PM PROTECTION OFFICER Temperature 36.7 ??C (98.1 ??F) 04/16/2023 1:00 PM CS T Respiratory Rate 13 04/16/2023 1:25 PM PROTECTION OFFICER Oxygen Saturation 99% 04/16/2023 1:25 PM PROTECTION OFFICER Inhaled Oxygen Concentration - - Weight 85.5 kg (188 lb 7.9 oz) 04/08/2023 12:37 PM PROTECTION OFFICER Height 163 cm (5' 4.17) 03/10/2023 2:13 PM CDT Body Mass Index 32.18 03/10/2023 2:13 PM CDT Results * Glucose, POCT (04/16/2023 1:02 PM PROTECTION OFFICER) Only the most recent of4 resultswithin the time period is included. Glucose, POCT, B 120 70 - 140 mg/dL 04/17/2023 5:56 AM PROTECTION OFFICER PCLX Site Capillary 04/17/2023 5:56 AM PROTECTION OFFICER PCLX Blood 04/16/2023 1:02 PM PROTECTION OFFICER 04/17/2023 5:57 AM PROTECTION OFFICER Unknown Provider LAB POCT ORDERABLES- MANUAL POC [facility] [address] [place] [address], [facility] PCLX [facility] [place] P[facility] [address] [place] [address] * US Upper Extremity Bilateral Dialysis Mapping (04/14/2023 11:58 AM PROTECTION OFFICER) Anatomical Region Laterality Modality Upper Extremity, Ultrasound RST LOS, Ultrasound ARZ LOS, Ultrasound FLA LOS, Procedural Bilateral Ultrasound 04/14/2023 12:1 6 PM PROTECTION OFFICER Impressions 04/14/2023 12:22 PM PROTECTION OFFICER 1. Patent central veins 2. 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 3. Superficial vein diameters as detailed below Narrative 04/14/2023 12:22 PM PROTECTION OFFICER EXAM: US UPPER EXTREMITY BILATERAL DIALYSIS MAPPING [...] below Wilfrid Lincoln Jr., D.O. IMG US PROCE DURES * IR Dialysis / High Flow Catheter Removal (04/08/2023 1:44 PM PROTECTION OFFICER) Anatomical Region Laterality Modality Body, Vascular Interventiona l RST LOS, Vascular Interventional ARZ LOS, Vascular Interventional FLA LOS N/A X-Ray Angiography 04/08/2023 1:59 PM PROTECTION OFFICER Impressions 04/08/2023 2:07 PM PROTECTION OFFICER 1. Removal of the existing poorly functioning right IJ tunneled Palindrome dialysis catheter. 2. Placement of a new right IJ tunneled 14-Vincentian AshSplit dialysis catheter, which is ready for immediate use. 3. Patient will be placed on a 5 day course of Bactrim for suspected infection at the old right neck venotomy site. She is instructed to follow up with either her nephrology team or primary care provider. NR Narrative 04/08/2023 2:07 PM PROTECTION OFFICER EXAM: IR DIALYSIS / HIGH FLOW CATHETER [...] Placement of a new right IJ tunneled 14-Vincentian AshSplit dialysiscatheter, which is ready for immediate use. 3. Patient will be placed on a 5 day course of Bactrim for suspectedinfection at the old right neck venotomy site. She is instructed to followup with either her nephrology team or primary care provider. NR Christine Worley Jr.OLeida UGALDE IR PROCE DURES * IR Dialysis / High Flow Catheter Placement (04/08/2023 1:44 PM PROTECTION OFFICER) Anatomical Region Laterality Modality Body, Vascular Interventiona l RST LOS, Vascular Interventional ARZ LOS, Vascular Interventional FLA LOS N/A X-Ray Angiography 04/08/2023 1:59 PM PROTECTION OFFICER Impressions 04/08/2023 2:07 PM PROTECTION OFFICER 1. Removal of the existing poorly functioning right IJ tunneled Palindrome dialysis catheter. 2. Placement of a new right IJ tunneled 14-Vincentian AshSplit dialysis catheter, which is ready for immediate use. 3. Patient will be placed on a 5 day course of Bactrim for suspected infection at the old right neck venotomy site. She is instructed to follow up with either her nephrology team or primary care provider. NR Narrative 04/08/2023 2:07 PM PROTECTION OFFICER EXAM: IR DIALYSIS / HIGH FLOW CATHETER [...] Placement of a new right IJ tunneled 14-Vincentian AshSplit dialysiscatheter, which is ready for immediate use. 3. Patient will be placed on a 5 day course of Bactrim for suspectedinfection at the old right neck venotomy site. She is instructed to followup with either her nephrology team or primary care provider. NR Wilfrid Lincoln Jr., D.O. IMG TYRA JOSHI * Bacterial Culture, Aerobic + Susceptibility (04/08/2023 1:24 PM PROTECTION OFFICER) Bacterial Culture, Aerobic + Susc No growth after 5 days of incubation. 04/13/2023 8:01 AM PROTECTION OFFICER DTL Device (Catheter Tip) 04/08/2023 1:24 PM PROTECTION OFFICER 04/08/2023 2:10 PM PROTECTION OFFICER Comment:Specimen Source Site : Device Wilfrid Lincoln Jr., D.O. LAB MICROBIO LOGY - GENERAL ORDERABLES 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 [address] [place] [address], [place] DTL [facility] [address] [place] [address] from Last 3 Months
--- NOTE | 2023-06-24 18:10 | ED.GENADULT ---
HPI - General Adult General Chief complaint: Arrhythmia/Palpitations Stated complaint: weak Time Seen by Provider: 06/24/23 17:48 History of Present Illness HPI narrative: This 77-year-old female comes in with atrial fibrillation and rapid ventricular response. She states that she has not had this in the past. She is a dialysis patient and after finishing dialysis today it was noted that her heart rate was accelerated around 140-150 beats per minute. Her initial assessment here showed a heart rate 152. Her blood pressure is well maintained and the patient does not report any chest pain or other symptoms. EKG initially shows atrial fibrillation with rate of 127. Related Data Home Medications Medication Instructions Recorded Confirmed acetaminophen 300 mg-codeine 30 mg 1 tab PO DAILY 06/24/23 06/24/23 tablet allopurinol 100 mg tablet 100 mg PO DAILY 06/24/23 06/24/23 amlodipine 5 mg tablet 5 mg PO DAILY 06/24/23 06/24/23 insulin glargine 100 unit/mL (3 unit subcut 06/24/23 mL) subcutaneous pen (Basaglar KwikPen U-100 Insulin) pravastatin 40 mg tablet 40 mg PO DAILY 06/24/23 06/24/23 sertraline 25 mg tablet 25 mg PO DAILY 06/24/23 06/24/23 Allergies Allergy/AdvReac Type Severity Reaction Status Date / Time atorvastatin Allergy Unknown Verified 06/24/23 17:39 clonidine Allergy Unknown Verified 06/24/23 17:39 oxycodone Allergy Unknown Verified 06/24/23 17:39 Penicillins Allergy Unknown Verified 06/24/23 17:39 Review of Systems Status of ROS: Reports: 10 or more systems reviewed and unremarkable except as noted in History and below Narrative: Constitutional: No fevers, no weight gain or loss. Eyes: No discharge. No vision changes. HENT: No congestion, no sore throat, no ear pain. Cardiovascular: No chest pain, no palpitations. Respiratory: No shortness of breath, no wheezes, no cough. Gastrointestinal: No abdominal pain, no vomiting, no diarrhea. Genitourinary: No dysuria, no hematuria. Musculoskeletal: Normal range of motion. Skin: No rashes, no pruritis. Neurological: No dizziness, weakness, sensory change, speech change. Endo/Heme/Allergies: No bruising or bleeding. No polydipsia. Pysch: no suicidality, no anxiety, no insomnia. All other systems reviewed and are negative. Exam Narrative: Exam Narrative: Constitutional: Well-developed, well-nourished, no acute distress. HEENT: Normocephalic, atraumatic. Neck: Normal range of motion. Nontender. Supple. Heart: Irregular. Tachycardia. Lungs: Clear to auscultation. No chest discomfort. No wheezes, rhonchi, or rales. Abdomen: Normal bowel sounds. Nontender. No rebound tenderness. Genitalia: Deferred. Back: No midline tenderness. Normal range of motion. Extremities: Normal range of motion. No injury. Skin: Intact. No rash. Warm. No erythema or pallor. Neurologic: No altered sensation. No weakness. Alert and oriented. Psychiatric: No suicidality. No anxiety or depression. No insomnia. Nursing notes and vitals signs are reviewed. Const: Vital Signs, click to edit/add: Vital Signs - 24 hr 06/24/23 17:34 Temperature 98.0 F Pulse Rate [Pulse Oximeter] 152 H Respiratory Rate 18 Blood Pressure [Le ft Forearm] 143/76 H Pulse Oximetry 97 Oxygen Delivery Me thod Room Air Course Vital Signs Vital signs: Initial Vital Signs Temperature 98.0 F 06/24/23 17:34 Temperature Source Temporal Artery Scan 06/24/23 17:34 Pulse Rate 152 H 06/24/23 17:34 Pulse Rhythm Irregular 06/24/23 17:34 Respiratory Rate 18 06/24/23 17:34 Blood Pressure 143/76 H 06/24/23 17:34 Blood Pressure Mean 98 06/24/23 17:34 Blood Pressure Position Sitting 06/24/23 17:34 Pulse Oximetry 97 06/24/23 17:34 Oxygen Delivery Method Room Air 06/24/23 17:34 Vital Signs Temperature 98.0 F 06/24/23 17:34 Pulse Rate 152 H 06/24/23 17:34 Respiratory Rate 18 06/24/23 17:34 Blood Pressure 143/76 H 06/24/23 17:34 Pulse Oximetry 97 06/24/23 17:34 Oxygen Delivery Method Room Air 06/24/23 17:34 Temperature 98.0 F 06/24/23 17:34 Pulse Rate 152 H 06/24/23 17:34 Respiratory Rate 18 06/24/23 17:34 Blood Pressure 143/76 H 06/24/23 17:34 Pulse Oximetry 97 06/24/23 17:34 Oxygen Delivery Method Room Air 06/24/23 17:34 Medications Administered Medications: Discontinued Medications Generic Name Dose Route Start Last Admin Trade Name Maria Guadalupe PRN Reason Stop Dose Admin Diltiazem HCl 20 mg 06/24/23 17:55 06/24/23 18:31 Diltiazem 5 Mg/Ml Inj IVP 06/24/23 17:56 20 mg ONCE ONE Administration Sodium Chloride 500 mls @ 500 mls/hr 06/24/23 17:55 06/24/23 18:31 0.9 % Sodium Chloride 500 Ml IV 06/24/23 18:54 500 mls/hr .Q1H ONE Administration Medical Decision Making MDM Narrative Medical decision making narrative: This 77-year-old female comes in after dialysis with atrial fibrillation and rapid ventricular response. An IV was established where she did receive 500 mL of normal saline. She also received 20 mg of diltiazem. This brought her heart rate down to normal rate and after Ali may have contributed to a conversion to normal sinus rhythm. Labs are acquired and these returned with reassuring findings. Her troponin is a bit elevated and was read checked without any change. The patient does not report any chest pain or prior cardiac history. It seems more likely that the low level of troponin displayed here is likely related to her renal failure and perhaps there was some demand ischemia with her increased heart rate. In any event the patient feels okay to return home. She will be able to continue her current plans. Lab Data Labs: Lab Results 06/24/23 06/24/23 Range/Units 17:25 17:30 WBC 5.02 (4.50-11.00) K/uL RBC 4.02 (4.00-5.20) m/uL Hgb 11.8 L (12.0-16.0) gm/dL Hct 38.5 (33.0-51.0) % MCV 96 (80-100) fL MCH 29 (26-34) pg MCHC 31 L (32-36) gm/dL RDW Coeff of Samy 15.7 H (11.5-15.5) % Plt Count 216 (140-440) K/uL Neut % (Auto) 64.9 (42.0-72.0) % Lymph % (Auto) 21.5 (20-44) % Chel[place] % (Auto) 8.0 (0.0-11.0) % Eos % (Auto) 4.4 (0.0-7.0) % Baso % (Auto) 1.2 (0.0-3.0) % Neut # (Auto) 3.26 (1.7-7.0) K/uL Lymph # (Auto) 1.08 (0.90-2.90) K/uL Chelan # (Auto) 0.40 (0.00-0.90) K/UL Eos # (Auto) 0.22 (0.00-0.50) K/uL Baso # (Auto) 0.06 (0.00-0.30) K/uL Abs Immat Gran (auto) 0.00 (0.00-0.30) K/uL Imm/Tot Granulo (auto) 0.0 % Sodium 132 L (135-149) mmol/L Potassium 4.3 (3.6-5.1) mmol/L Chloride 97 (96-114) mmol/L Carbon Dioxide 24 (20-32) mmol/L Anion Gap 11 (7-15) mEq/L BUN 25 (7-30) mg/dL Creatinine 3.2 H (0.5-1.5) mg/dL Estimated Creat Clear 12.83 Estimated GFR 14 ml/min Glucose 130 H (60-115) mg/dL Calcium 10.2 (8.4-10.6) mg/dL Troponin I 0.18 H* (0.01-0.04) ng/mL POC Troponin I 0.15 H (0.01-0.04) ng/ml ECG Data Attestation: I personally reviewed and interpreted this ECG as follows: Interpretation: Atrial fibrillation with rapid ventricular response. Rate is 127 beats per minute. There are no specific ST or T-wave abnormalities. Repeat EKG after diltiazem shows normal sinus rhythm at a rate of 75 beats per minute. There are no specific ST or T-wave abnormalities. Discharge Plan Discharge Clinical Impression: Atrial fibrillation with rapid ventricular response Patient Disposition: Home, Self-Care Condition: Improved Additional Instructions: Continue current plans. Return if symptoms are recurrent or worsening. Prescriptions: No Action pravastatin 40 mg tablet 40 mg PO DAILY acetaminophen-codeine 300-30 mg tablet 1 tab PO DAILY amlodipine 5 mg tablet 5 mg PO DAILY allopurinol 100 mg tablet 100 mg PO DAILY sertraline 25 mg tablet 25 mg PO DAILY insulin glargine [Basaglar KwikPen U-100 Insulin] 100 unit/mL (3 mL) insulin pen subcut Follow Up/Referrals: Yancy England, LONG TERM CARE SOCIAL WORKER, FAMILY LAW LEGAL ASSISTANT [Primary Care Provider] - Stand Alone Forms: [employer] Info Instructions
--- OUTSIDE RECORDS SUMMARY | 2023-06-24 18:10 | XMS_ITS | Encounter Summary ---
Author Name Unknown Organization [facility] Address [address] [place] [address] Care Team Providers Care Retirement Plan Counselor Name Role Phone Allyn Alfredo M.D. Primary Care Pro vider Encounter Details Date Type Department Care Team (Late st Contact Info) Description 05/19/2023 Orders Only Division of Nephrology and Hypertension in [place], [place] [address] [place] [phone] Heather Pitts M.D., Ph.D. [address] [place] [phone] Social History Tobacco Use Types Packs/Day Years Used Date Smoking Tobacco: Former Cigarettes 0 Q uit: 2013 Smokeless Tobacco: Never Alcohol Use Standard Drinks/Week Comments Not Currently [...] 09/11/2022 How often do you attend chur or mormon services? 1 to 4 times per year 09/11/2022 Do you belong to any clubs o r organizations such as pentecostal groups, unions, fraternal or athletic groups, or [...] Answer Date Recorded PHQ-2 Score 0 02/23/2023 [facility]at ional Health - Occupational [...] place to sleep or slept in a group home (including now)? No 09/11/2022 Depression Answer Date [...] Sex Assigned at Female 03/27/2017 3:30 PM PUBLIC RELATIONS ACCOUNT EXECUTIVE Gender Identity Female 03/27/2017 3:30 PM PUBLIC RELATIONS ACCOUNT EXECUTIVE Sexual Orientation Straight 03/27/2017 3: 30 PM PUBLIC RELATIONS ACCOUNT EXECUTIVE documented as of this encounter Plan of Treatment Upcoming Encounters Date Type Department Care Team (Latest Contact Info) Description 07/09/2023 8:20 AM PUBLIC RELATIONS ACCOUNT EXECUTIVE Appointment Department of Laboratory Medicine in [address] [phone] Allyn Alfredo M.D. [address] [place] [phone] 07/09/2023 9:15 AM PUBLIC RELATIONS ACCOUNT EXECUTIVE Office Visit Department of Family Medicine, [facility], in [address] [phone] Allyn Alfredo M.D. [address] [place] [phone] 07/16/2023 12:06 PM PUBLIC RELATIONS ACCOUNT EXECUTIVE Hospital Encounter Post Anesthesia Care Unit in [address] [phone] Cristhian Grant M.B., Ch.B., Ph.D. [address] [place] [phone] 07/16/2023 12:06 PM PUBLIC RELATIONS ACCOUNT EXECUTIVE - 07/16/2023 3:35 PM PUBLIC RELATIONS ACCOUNT EXECUTIVE Surgery [facility] ROM[facility] MAIN OR [address] [place] [phone] Cirsthian Grant M.B., Ch.B., Ph.D. [address] [place] [phone] CREATION FISTULA RADIOCEPHALIC ARTERIOVENOUS 07/20/2023 11:00 AM CDT Office Visit Department of Orthopedic Surgery in [address] [phone] Cindy Walker D.P.M. [address] [place] [phone] Discharge Disposition: Home or Self Care 08/25/2023 3:15 PM CDT Telemedicine Department of Sleep Medicine in [place], [place] [address] [place] [phone] Emilee Emanuel APRN, C.N.P., D.N.P., M.S.N. [address] [place] [phone] Scheduled Procedures Name Priority Associated Diagnoses Date/Ti me CREATION FISTULA RADIOCEPHALIC ARTERIOVENOUS Chronic Kidney Disease Stage 5 Glomerular 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) 07/16/2023 12:06 PM PUBLIC RELATIONS ACCOUNT EXECUTIVE CREATION FISTULA BRACHIOCEPHALIC ARTERIOVENOUS Chronic Kidney Disease Stage 5 Glomerular 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) 07/16/2023 12:06 PM PUBLIC RELATIONS ACCOUNT EXECUTIVE documented as of this encounter Visit Diagnoses Not on filedocumented in this encounter Additional Health Concerns Assessment Noted Time PHQ-9 Depression Total Score: 0 02/24/20 23 1:03 PM CDT documented as of this encounter Care Teams Retirement Plan Counselor Relationship Specialty Start Date End Date Allyn Alfredo M.D. [address] [place] [phone] PCP - General Family Medicine 04/05/21 documented as of this encounter
--- OUTSIDE RECORDS SUMMARY | 2023-06-24 18:10 | XMS_ITS | Encounter Summary ---
Author Name Unknown Organization [facility] Address [address] [place] [address] Care Team Providers Care Marine Consultant Name Role Phone Allyn Alfredo M.D. Primary Care Pro vider Reason for Referral * Specialty Diagnoses / Procedures Referred By Esther t Referred To Contact Jacklyn Mccarthy APRN, C.NTroy, M.S.N. [address] [place] [phone] [facility] Referral ID Status Reason Start Date Expiration Date Visits Re quested Visits Authorized TICS COORDINATOR Encounter Details Date Type Department Care Team (Late st Contact Info) Description 05/22/2023 Orders Only Division of Nephrology and Hypertension, [facility], in [place], [place] [address] [place] [phone] Jacklyn Mccarthy APRN, C.NTroy, M.S.N. 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) Social History Tobacco Use Types Packs/Day Years [...] any clubs o r organizations such as evangelical groups, unions, fraternal or athletic groups, or [...] Answer Date Recorded PHQ-2 Score 0 02/23/2023 [facility] - Occupational Stress Questionnaire Answer Date Recorded [...] Sex Assigned at Female 03/27/2017 3:30 PM AQUATICS COORDINATOR Gender Identity Female 03/27/2017 3:30 PM AQUATICS COORDINATOR Sexual Orientation Straight 03/27/2017 3: 30 PM AQUATICS COORDINATOR documented as of this encounter Plan of Treatment Upcoming Encounters Date Type Department Care Team (Latest Contact Info) Description 07/09/2023 8:20 AM AQUATICS COORDINATOR Appointment Department of Laboratory Medicine in [address] [phone] Allyn Alfredo M.D. [address] [place] [phone] 07/09/2023 9:15 AM AQUATICS COORDINATOR Office Visit Department of Family Medicine, [facility], in [address] [phone] Allyn Alfredo M.D. [address] [place] [phone] 07/16/2023 12:06 PM AQUATICS COORDINATOR Hospital Encounter Post Anesthesia Care Unit in [address] [phone] Cristhian Grant M.B., Ch.B., Ph.D. [address] [place] [phone] 07/16/2023 12:06 PM AQUATICS COORDINATOR - 07/16/2023 3:35 PM AQUATICS COORDINATOR Surgery [facility]ST ROM[facility] MAIN OR [address] [place] [phone] Cristhian Grant M.B., Ch.B., Ph.D. [address] [place] [phone] CREATION FISTULA RADIOCEPHALIC ARTERIOVENOUS 07/20/2023 11:00 AM CDT Office Visit Department of Orthopedic Surgery in [address] [phone] Cindy Walker D.PLeidaMLeida [address] [place] [phone] Discharge Disposition: Home or Self Care 08/25/2023 3:15 PM CDT Telemedicine Department of Sleep Medicine in [place], [place] [address] [place] [phone] Emilee Emanuel APRN, C.N.P., D.N.P., M.S.N. [address] [place] [phone] Scheduled Procedures Name Priority Associated Diagnoses Date/Ti me CREATION FISTULA RADIOCEPHALIC ARTERIOVENOUS Chronic Kidney Disease Stage 5 Glomerular 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) 07/16/2023 12:06 PM AQUATICS COORDINATOR CREATION FISTULA BRACHIOCEPHALIC ARTERIOVENOUS Chronic Kidney Disease Stage 5 Glomerular 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) 07/16/2023 12:06 PM AQUATICS COORDINATOR Scheduled Referrals Name Type Priority Associated Diagnoses Order Schedule Hemodialysis Transient; Outpatient Referral Routine 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) 6 Occurrences starting 05/22/2023 until 07/01/2023 documented as of this encounter Visit Diagnoses Diagnosis Chronic Kidney Disease Stage 5 Glomerular 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)- Primary 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)- Primary Chronic Kidney Disease Stage 5 Glomerular 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) documented in this encounter Additional Health Concerns Assessment Noted Time PHQ-9 Depression Total Score: 0 02/24/20 23 1:03 PM CDT documented as of this encounter Care Teams Marine Consultant Relationship Specialty Start Date End Date Allyn Alfredo M.D. [address] [place] [phone] PCP - General Family Medicine 04/05/21 documented as of this encounter
--- OUTSIDE RECORDS SUMMARY | 2023-06-24 18:10 | XMS_ITS | Encounter Summary ---
Author Name Unknown Organization [facility] Address [address] [place] [address] Care Team Providers Care Container Filler Name Role Phone Allyn Alfredo M.D. Primary Care Pro vider Encounter Details Date Type Department Care Team (Late st Contact Info) Description 04/23/2023 Orders Only Division of Nephrology and Hypertension, [facility], in [place], [place] [address] [place] [phone] Jacklyn Mccarthy, ANU, C.N.P., M.S.N. [address] [place] [phone] Social History Tobacco Use Types Packs/Day Years [...] How often do you attend chur or pentecostal services? 1 to 4 times per year 09/11/2022 Do you belong to any clubs o r organizations such as zoroastrian groups, unions, fraternal or athletic groups, or [...] Answer Date Recorded PHQ-2 Score 0 02/23/2023 [facility] Occupat ional Health - [...] Sex Assigned at Female 03/27/2017 3:30 PM ELASTIC TAPE INSERTER Gender Identity Female 03/27/2017 3:30 PM ELASTIC TAPE INSERTER Sexual Orientation Straight 03/27/2017 3: 30 PM ELASTIC TAPE INSERTER documented as of this encounter Plan of Treatment Upcoming Encounters Date Type Department Care Team (Latest Contact Info) Description 07/09/2023 8:20 AM ELASTIC TAPE INSERTER Appointment Department of Laboratory Medicine in [address] [phone] Allyn Alfredo M.D. [address] [place] [phone] 07/09/2023 9:15 AM ELASTIC TAPE INSERTER Office Visit Department of Family Medicine, [facility], in [address] [phone] Allyn Alfredo M.D. [address] [place] [phone] 07/16/2023 12:06 PM ELASTIC TAPE INSERTER Hospital Encounter Post Anesthesia Care Unit in [address] [phone] Cristhian Grant M.B., Ch.B., Ph.D. [address] [place] [phone] 07/16/2023 12:06 PM ELASTIC TAPE INSERTER - 07/16/2023 3:35 PM ELASTIC TAPE INSERTER Surgery [facility] MAIN OR [address] [place] [phone] Cristhian Grant M.B., Ch.B., Ph.D. [address] [place] [phone] CREATION FISTULA RADIOCEPHALIC ARTERIOVENOUS 07/20/2023 11:00 AM CDT Office Visit Department of Orthopedic Surgery in [address] [phone] Cindy Walker D.P.M. [address] [place] [phone] Discharge Disposition: Home or Self Care 08/25/2023 3:15 PM CDT Telemedicine Department of Sleep Medicine in [place], [place] [address] [place] [phone] Emilee Emanuel APRN, C.N.P., D.N.P., M.S.N. [address] [place] [phone] Scheduled Procedures Name Priority Associated Diagnoses Date/Ti me CREATION FISTULA RADIOCEPHALIC ARTERIOVENOUS Chronic Kidney Disease Stage 5 Glomerular 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) 07/16/2023 12:06 PM ELASTIC TAPE INSERTER CREATION FISTULA BRACHIOCEPHALIC ARTERIOVENOUS Chronic Kidney Disease Stage 5 Glomerular 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) 07/16/2023 12:06 PM ELASTIC TAPE INSERTER documented as of this encounter Visit Diagnoses Not on filedocumented in this encounter Additional Health Concerns Assessment Noted Time PHQ-9 Depression Total Score: 0 02/24/20 23 1:03 PM CDT documented as of this encounter Care Teams Container Filler Relationship Specialty Start Date End Date Allyn Alfredo M.D. [phone] [place] [phone] PCP - General Family Medicine 04/05/21 documented as of this encounter
--- OUTSIDE RECORDS SUMMARY | 2023-06-24 18:10 | XMS_ITS | Encounter Summary ---
Author Name Unknown Organization [facility] Address [address] [place] [address] Care Team Providers Care Fitter Tacker Name Role Phone Allyn Alfredo M.D. Primary Care Pro vider Encounter Details Date Type Department Care Team (Late st Contact Info) Description 06/05/2023 Orders Only Division of Nephrology and Hypertension, [facility], [place], [place] [address] [place] [phone] Jacklyn Mccarthy, ANU, C.N.P., M.S.N. [address] [place] [phone] Social History Tobacco Use Types Packs/Day Years [...] How often do you attend chur or confucianist services? 1 to 4 times per year 09/11/2022 Do you belong to any clubs o r organizations such as presybeterian groups, unions, fraternal or athletic groups, or [...] Answer Date Recorded PHQ-2 Score 0 02/23/2023 [facility] of Occupat ional Health - Occupational Stress [...] Assigned at Female 03/27/2017 3:30 PM DIRECTOR OF GLOBAL TALENT Gender Identity Female 03/27/2017 3:30 PM DIRECTOR OF GLOBAL TALENT Sexual Orientation Straight 03/27/2017 3: 30 PM DIRECTOR OF GLOBAL TALENT documented as of this encounter Plan of Treatment Upcoming Encounters Date Type Department Care Team (Latest Contact Info) Description 07/09/2023 8:20 AM DIRECTOR OF GLOBAL TALENT Appointment Department of Laboratory Medicine in [address] [phone] Allyn Alfredo M.D. [address] [place] [phone] 07/09/2023 9:15 AM DIRECTOR OF GLOBAL TALENT Office Visit Department of Family Medicine, [facility], in [address] [phone] Allyn Alfredo M.D. [address] [place] [phone] 07/16/2023 12:06 PM DIRECTOR OF GLOBAL TALENT Hospital Encounter Post Anesthesia Care Unit in [address] [phone] Cristhian Grant M.B., Ch.B., Ph.D. [address] [place] [phone] 07/16/2023 12:06 PM DIRECTOR OF GLOBAL TALENT - 07/16/2023 3:35 PM DIRECTOR OF GLOBAL TALENT Surgery [facility]ST ROMB MAIN OR [address] [place] [phone] Cristhian Grant M.B., Ch.B., Ph.D. [address] [place] [phone] CREATION FISTULA RADIOCEPHALIC ARTERIOVENOUS 07/20/2023 11:00 AM CDT Office Visit Department of Orthopedic Surgery in [address] [phone] Cindy Walker D.P.M. [address] [place] [phone] Discharge Disposition: Home or Self Care 08/25/2023 3:15 PM CDT Telemedicine Department of Sleep Medicine in [place], [place] [address] [place] [phone] Emilee Emanuel APRN, C.N.P., D.N.P., M.S.N. [address] [place] [phone] Scheduled Procedures Name Priority Associated Diagnoses Date/Ti me CREATION FISTULA RADIOCEPHALIC ARTERIOVENOUS Chronic Kidney Disease Stage 5 Glomerular 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) 07/16/2023 12:06 PM DIRECTOR OF GLOBAL TALENT CREATION FISTULA BRACHIOCEPHALIC ARTERIOVENOUS Chronic Kidney Disease Stage 5 Glomerular 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) 07/16/2023 12:06 PM DIRECTOR OF GLOBAL TALENT documented as of this encounter Visit Diagnoses Not on filedocumented in this encounter Additional Health Concerns Assessment Noted Time PHQ-9 Depression Total Score: 0 02/24/20 23 1:03 PM CDT documented as of this encounter Care Teams Fitter Tacker Relationship Specialty Start Date End Date Allyn Alfredo M.D. [phone] [place] [phone] PCP - General Family Medicine 04/05/21 documented as of this encounter
--- OUTSIDE RECORDS SUMMARY | 2023-06-24 18:10 | XMS_ITS | Encounter Summary ---
Author Name Unknown Organization [facility] Address [address] [place] [address] Care Team Providers Care Band Lining Bander Name Role Phone Allyn Alfredo M.D. Primary Care Pro vider Encounter Details Date Type Department Care Team (Late st Contact Info) Description 06/15/2023 Orders Only Division of Nephrology and Hypertension in [place], [place] [address] [place] [address] Wilfrid Lincoln Jr., D.O. [address] [place] [phone] Social History Tobacco Use Types Packs/Day Years [...] How often do you attend chur or mu-ism services? 1 to 4 times per year 09/11/2022 Do you belong to any clubs o r organizations such as roman catholic groups, unions, fraternal or athletic groups, or [...] Answer Date Recorded PHQ-2 Score 0 02/23/2023 [facility] ional [facility] - Occupational [...] place to sleep or slept in a usp (including now)? No 09/11/2022 Depression Answer Date [...] Sex Assigned at Female 03/27/2017 3:30 PM MODEL TECHNICIAN Gender Identity Female 03/27/2017 3:30 PM MODEL TECHNICIAN Sexual Orientation Straight 03/27/2017 3: 30 PM MODEL TECHNICIAN documented as of this encounter Plan of Treatment Upcoming Encounters Date Type Department Care Team (Latest Contact Info) Description 07/09/2023 8:20 AM MODEL TECHNICIAN Appointment Department of Laboratory Medicine in [address] [phone] Allyn Alfredo M.D. [address] [place] [phone] 07/09/2023 9:15 AM MODEL TECHNICIAN Office Visit Department of Family Medicine, [facility] [place], in [address] [phone] Allyn Alfredo M.D. [address] [place] [phone] 07/16/2023 12:06 PM MODEL TECHNICIAN Hospital Encounter Post Anesthesia Care Unit in [address] [phone] Cristhian Grant M.B., Ch.B., Ph.D. [address] [place] [phone] 07/16/2023 12:06 PM MODEL TECHNICIAN - 07/16/2023 3:35 PM MODEL TECHNICIAN Surgery [facility] MAIN OR [address] [place] [phone] Cristhian Grant M.B., Ch.B., Ph.D. [address] [place] [phone] CREATION FISTULA RADIOCEPHALIC ARTERIOVENOUS 07/20/2023 11:00 AM CDT Office Visit Department of Orthopedic Surgery in [address] [phone] Cindy Walker D.P.M. [address] [place] [phone] Discharge Disposition: Home or Self Care 08/25/2023 3:15 PM CDT Telemedicine Department of Sleep Medicine in [place], [place] [address] [place] [phone] Emilee Emanuel APRN, C.N.P., D.N.P., M.S.N. [address], [place] [phone] Scheduled Procedures Name Priority Associated Diagnoses Date/Ti me CREATION FISTULA RADIOCEPHALIC ARTERIOVENOUS Chronic Kidney Disease Stage 5 Glomerular 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) 07/16/2023 12:06 PM MODEL TECHNICIAN CREATION FISTULA BRACHIOCEPHALIC ARTERIOVENOUS Chronic Kidney Disease Stage 5 Glomerular 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) 07/16/2023 12:06 PM MODEL TECHNICIAN documented as of this encounter Visit Diagnoses Not on filedocumented in this encounter Additional Health Concerns Assessment Noted Time PHQ-9 Depression Total Score: 0 02/24/20 23 1:03 PM CDT documented as of this encounter Care Teams Band Lining Bander Relationship Specialty Start Date End Date Allyn Alfredo M.D. [address] [place] [phone] PCP - General Family Medicine 04/05/21 documented as of this encounter
--- OUTSIDE RECORDS SUMMARY | 2023-06-24 18:10 | XMS_ITS | Encounter Summary ---
Author Name Unknown Organization [facility] Address [address] [place] [id number] Care Team Providers Care Bar Catcher Name Role Phone Allyn Alfredo M.D. Primary Care Pro vider Encounter Details Date Type Department Care Team (Late st Contact Info) Description 05/26/2023 Clinical Communication Division of Nephrology and Hypertension in [place], [place] [address] [place] [phone] Sandra Moreno M.S.N., R.N. [address] [place] [phone] Social History Tobacco Use Types Packs/Day Years [...] How often do you attend chur or congregation services? 1 to 4 times per year 09/11/2022 Do you belong to any clubs o r organizations such as sikhism groups, unions, fraternal or athletic groups, or [...] Answer Date Recorded PHQ-2 Score 0 02/23/2023 [facility] of Occupat ional Health - [...] place to sleep or slept in a care home (including now)? No 09/11/2022 Depression Answer [...] Sex Assigned at Female 03/27/2017 3:30 PM LADLE CAR OPERATOR Gender Identity Female 03/27/2017 3:30 PM LADLE CAR OPERATOR Sexual Orientation Straight 03/27/2017 3: 30 PM LADLE CAR OPERATOR documented as of this encounter Miscellaneous Notes * Telephone Encounter - Sandra Moreno M.S.N., R.N. - 05/26/2023 2:25 PM CST I called patient and she confirmed that she would like to change her AVF surgery from 06/17/23 to 07/16/[address] Grant's team at her request. I also discussed and reviewed surgical pre-op instructions with patient that she had received on 04/14/24 and she verbalized understanding. I answered any further questions or concerns. E CAR OPERATOR documented in this encounter Plan of Treatment Upcoming Encounters Date Type Department Care Team (Latest Contact Info) Description 07/09/2023 8:20 AM LADLE CAR OPERATOR Appointment Department of Laboratory Medicine in [address] [phone] Allyn Alfredo M.D. [address] [place] [phone] 07/09/2023 9:15 AM LADLE CAR OPERATOR Office Visit Department of Family Medicine, [facility], in [address] [phone] Allyn Alfredo M.D. [address] [place] [phone] 07/16/2023 12:06 PM LADLE CAR OPERATOR Hospital Encounter Post Anesthesia Care Unit in [address] [phone] Cristhian Grant M.B., Ch.B., Ph.D. [address] [place] [phone] 07/16/2023 12:06 PM LADLE CAR OPERATOR - 07/16/2023 3:35 PM LADLE CAR OPERATOR Surgery [facility] ROM[facility] MAIN OR [address] [place] [phone] Cristhian Grant M.B., Ch.B., Ph.D. 200 [place] [phone] CREATION FISTULA RADIOCEPHALIC ARTERIOVENOUS 07/20/2023 11:00 AM CDT Office Visit Department of Orthopedic Surgery in [address] [phone] Cindy Walker D.P.M. [address] [place] [phone] Discharge Disposition: Home or Self Care 08/25/2023 3:15 PM CDT Telemedicine Department of Sleep Medicine in [place], [place] [address] [place] [phone] Emilee Emanuel APRN, Gabby.N.P., D.N.P., M.S.N. [address] [phone] Scheduled Procedures Name Priority Associated Diagnoses Date/Ti me CREATION FISTULA RADIOCEPHALIC ARTERIOVENOUS Chronic Kidney Disease Stage 5 Glomerular 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) 07/16/2023 12:06 PM LADLE CAR OPERATOR CREATION FISTULA BRACHIOCEPHALIC ARTERIOVENOUS Chronic Kidney Disease Stage 5 Glomerular 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) 07/16/2023 12:06 PM LADLE CAR OPERATOR documented as of this encounter Visit Diagnoses Not on filedocumented in this encounter Additional Health Concerns Assessment Noted Time PHQ-9 Depression Total Score: 0 02/24/20 23 1:03 PM CDT documented as of this encounter Care Teams Bar Catcher Relationship Specialty Start Date End Date Allyn Alfredo M.D. [address] [place] [phone] PCP - General Family Medicine 04/05/21 documented as of this encounter
--- OUTSIDE RECORDS SUMMARY | 2023-06-24 18:10 | XMS_ITS | Encounter Summary ---
Author Name Unknown Organization [facility] Address [address] [place] [address] Care Team Providers Care Lpn Per Diem Name Role Phone Allyn Alfredo M.D. Primary Care Pro vider Reason for Referral * Outpatient (Routine) - Authorized Specialty Diagnoses / Procedures Referred By Esther zamorano Referred To Contact Diagnoses 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) Follow Up Examination Postoperative Visit Procedures US Hemodialysis Fistula-Graft Right Cristhian Grant M.B., Ch.B., Ph.D. 200 [place] [phone] [facility] Referral ID Status Reason Start Date Expiration Date V isits Requested Visits Authorized [id number] Authorized 05/27/2023 05/26/2024 1 1 COPTER SPECIALIST * Outpatient (Routine) - Authorized Specialty Diagnoses / Procedures Referred By Esther t Referred To Contact Nephrology and Hypertension Cristhian Grant M.B., Ch.B., Ph.D. [address] [place] [phone] [facility] Referral ID Status Reason Start Date Expiration Date V isits Requested Visits Authorized [id number] Authorized 05/27/2023 05/26/2026 1 1 Scheduling Instructions She dialyzes on MWF schedule at [place] COPTER SPECIALIST Encounter Details Date Type Department Care Team (Late st Contact Info) Description 05/27/2023 Orders Only Division of Nephrology and Hypertension in [place], [place] [address] [place] [phone] Sandra Moreno M.S.N., R.N. [address] [place] [phone] Follow Up Examination Postoperative Visit (Primary Dx); 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) Social History Tobacco Use Types Packs/Day Years [...] often do you attend [facility] or tenriism services? 1 to 4 times per year 09/11/2022 Do you belong to any clubs o r organizations such as jew groups, unions, fraternal or athletic groups, or [...] Answer Date Recorded PHQ-2 Score 0 02/23/2023 [facility]at [facility] - Occupational Stress Questionnaire Answer [...] place to sleep or slept in a halfway (including now)? No 09/11/2022 Depression Answer Date [...] Sex Assigned at Female 03/27/2017 3:30 PM HELICOPTER SPECIALIST Gender Identity Female 03/27/2017 3:30 PM HELICOPTER SPECIALIST Sexual Orientation Straight 03/27/2017 3: 30 PM HELICOPTER SPECIALIST documented as of this encounter Plan of Treatment Upcoming Encounters Date Type Department Care Team (Latest Contact Info) Description 07/09/2023 8:20 AM HELICOPTER SPECIALIST Appointment Department of Laboratory Medicine in [address] [phone] Allyn Alfredo M.D. [address] [place] [phone] 07/09/2023 9:15 AM HELICOPTER SPECIALIST Office Visit Department of Family Medicine, [facility], in [address] [phone] Allyn Alfredo M.D. [address] [place] [phone] 07/16/2023 12:06 PM HELICOPTER SPECIALIST Hospital Encounter Post Anesthesia Care Unit in [place], [place] [address] [place] [phone] Cristhian Grant M.B., Ch.B., Ph.D. [address] [place] [phone] 07/16/2023 12:06 PM HELICOPTER SPECIALIST - 07/16/2023 3:35 PM HELICOPTER SPECIALIST Surgery [facility] MAIN OR [address] [place] [phone] Cristhian Grant M.B., Ch.B., Ph.D. [address] [place] [phone] CREATION FISTULA RADIOCEPHALIC ARTERIOVENOUS 07/20/2023 11:00 AM CDT Office Visit Department of Orthopedic Surgery in [address] [phone] Cindy Walker, ChristineP.M. [address] [place] [phone] Discharge Disposition: Home or Self Care 08/25/2023 3:15 PM CDT Telemedicine Department of Sleep Medicine in [place], [place] [address], [place] [phone] Emilee Emanuel APRN, C.N.P., D.N.P., M.S.N. [address], [place] [phone] Scheduled Orders Name Type Priority Associated Diagnoses Orde r Schedule US Hemodialysis Fistula-Graft Right Imaging RAD - Routine (most inpatients and all outpatients) 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) Follow Up Examination Postoperative Visit Expected: 08/27/2023 (Approximate), Expires: 08/25/2024 Scheduled Procedures Name Priority Associated Diagnoses Date/Ti me CREATION FISTULA RADIOCEPHALIC ARTERIOVENOUS Chronic Kidney Disease Stage 5 Glomerular 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) 07/16/2023 12:06 PM HELICOPTER SPECIALIST CREATION FISTULA BRACHIOCEPHALIC ARTERIOVENOUS Chronic Kidney Disease Stage 5 Glomerular 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) 07/16/2023 12:06 PM HELICOPTER SPECIALIST Scheduled Referrals Name Type Priority Associated Diagnoses Order Schedule Nephrology nurse visit (clinic) Outpatient Referral Routine Expected: 08/27/2023, Expires: 08/25/2024 documented as of this encounter Visit Diagnoses Diagnosis Chronic Kidney Disease Stage 5 Glomerular 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)- Primary Follow Up Examination Postoperative Visit- Primary 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) Chronic Kidney Disease Stage 5 Glomerular 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) documented in this encounter Additional Health Concerns Assessment Noted Time PHQ-9 Depression Total Score: 0 02/24/20 23 1:03 PM CDT documented as of this encounter Care Teams Lpn Per Diem Relationship Specialty Start Date End Date Allyn Alfredo M.D. [address] [phone] PCP - General Family Medicine 04/05/21 documented as of this encounter
--- OUTSIDE RECORDS SUMMARY | 2023-06-24 18:10 | XMS_ITS | Encounter Summary ---
Author Name Unknown Organization [facility] Address [address] [place] [address] Care Team Providers Care Xray Tech Name Role Phone Allyn Alfredo M.D. Primary Care Pro vider Reason for Visit * Reason Onset Date Comments Form Review 04/21/2023 [facility] ( Discharge Order 03/04/23-05/02/23 Encounter Details Date Type Department Care Team (Latest Contact Info) Description 04/21/2023 Clinical Communication Department of Family Medicine, [facility] [place], in [address] [phone] Allyn Alfredo M.D. [address] [place] [phone] Form Review ([facility] ( Discharge Order 03/04/23-05/02/23) Social History Tobacco Use Types Packs/Day Years [...] often do you attend chur ch or christianity services? 1 to 4 times per year 09/11/2022 Do you belong to any clubs o r organizations such as yarsani groups, unions, fraternal or athletic groups, or [...] Answer Date Recorded PHQ-2 Score 0 02/23/2023 [facility] of Occupat ional Health - Occupational [...] Sex Assigned at Female 03/27/2017 3:30 PM BELT AND LINK SHOP SUPERVISOR Gender Identity Female 03/27/2017 3:30 PM BELT AND LINK SHOP SUPERVISOR Sexual Orientation Straight 03/27/2017 3: 30 PM BELT AND LINK SHOP SUPERVISOR documented as of this encounter Miscellaneous Notes * Telephone Encounter - Zoila May - 04/21/2023 4:16 PM CST Received back completed form. Form faxed back to the listed facility. Scanned into [facility] AND LINK SHOP SUPERVISOR * Telephone Encounter - Zoila May - 04/21/2023 9:00 AM CST Form was emailed to Allyn Ryan MD for electronic review/signature. HORTICULTURAL SERVICES SUPERVISOR: [facility] PHONE NUMBER: [phone] INFO REQUESTED: Discharge Order 03/04/23-05/02/23 INSTRUCTIONS: Fax form to [phone] AND LINK SHOP SUPERVISOR documented in this encounter Plan of Treatment Upcoming Encounters Date Type Department Care Team (Latest Contact Info) Description 07/09/2023 8:20 AM BELT AND LINK SHOP SUPERVISOR Appointment Department of Laboratory Medicine in [address] [phone] Allyn Alfredo M.D. [address] [place] [phone] 07/09/2023 9:15 AM BELT AND LINK SHOP SUPERVISOR Office Visit Department of Family Medicine, [facility] [place], in [address] [phone] Allyn Alfredo M.D. [address] [place] [phone] 07/16/2023 12:06 PM BELT AND LINK SHOP SUPERVISOR Hospital Encounter Post Anesthesia Care Unit in [place], [place] [address] [place] [phone] Cristhian Grant M.B., Ch.B., Ph.D. [address] [place] [phone] 07/16/2023 12:06 PM BELT AND LINK SHOP SUPERVISOR - 07/16/2023 3:35 PM BELT AND LINK SHOP SUPERVISOR Surgery [facility]ST ROM[facility] MAIN OR [address] [place] [phone] Cristhian Grant M.B., Ch.B., Ph.D. 200 [place] [phone] CREATION FISTULA RADIOCEPHALIC ARTERIOVENOUS 07/20/2023 11:00 AM CDT Office Visit Department of Orthopedic Surgery in [address] [phone] Cindy Walker D.P.MLeida [address] [facility] [place] [phone] Discharge Disposition: Home or Self Care 08/25/2023 3:15 PM CDT Telemedicine Department of Sleep Medicine in [place], [place] [address] [place] [phone] Emilee Emanuel APRN, C.N.P., D.N.P., M.S.N. [address] [phone] Scheduled Procedures Name Priority Associated Diagnoses Date/Ti me CREATION FISTULA RADIOCEPHALIC ARTERIOVENOUS Chronic Kidney Disease Stage 5 Glomerular 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) 07/16/2023 12:06 PM BELT AND LINK SHOP SUPERVISOR CREATION FISTULA BRACHIOCEPHALIC ARTERIOVENOUS Chronic Kidney Disease Stage 5 Glomerular 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) 07/16/2023 12:06 PM BELT AND LINK SHOP SUPERVISOR documented as of this encounter Visit Diagnoses Not on filedocumented in this encounter Additional Health Concerns Assessment Noted Time PHQ-9 Depression Total Score: 0 02/24/20 23 1:03 PM CDT documented as of this encounter Care Teams Xray Tech Relationship Specialty Start Date End Date [place] Allyn Ryan M.D. [address] [phone] PCP - General Family Medicine 04/05/21 documented as of this encounter
--- OUTSIDE RECORDS SUMMARY | 2023-06-24 18:10 | XMS_ITS | Encounter Summary ---
Author Name Unknown Organization [facility] Address [address] [place] [address] Care Team Providers Care Decorating Kiln Operator Name Role Phone Allyn Alfredo M.D. Primary Care Pro vider Encounter Details Date Type Department Care Team (Late st Contact Info) Description 04/27/2023 Patient Self-Triage [facility] Symptom Meter Technician, Provider Social History Tobacco Use Types Packs/Day Years [...] friends, or neighbors? Once a week 09/12/19 23 How often do you get togethe r with friends or relatives? Once a week 09/11/2022 How often do you attend chur ch or restorationist services? 1 to 4 times per year 09/11/2022 Do you belong to any clubs o r organizations such as buddhism groups, unions, fraternal or athletic groups, or [...] Answer Date Recorded PHQ-2 Score 0 02/23/2023 [facility] of Occupat ional Health - Occupational Stress [...] place to sleep or slept in a long-term (including now)? No 09/11/2022 Depression Answer Date [...] Sex Assigned at Female 03/27/2017 3:30 PM SOFTWARE QUALITY ANALYST Gender Identity Female 03/27/2017 3:30 PM SOFTWARE QUALITY ANALYST Sexual Orientation Straight 03/27/2017 3: 30 PM SOFTWARE QUALITY ANALYST documented as of this encounter Plan of Treatment Upcoming Encounters Date Type Department Care Team (Latest Contact Info) Description 07/09/2023 8:20 AM SOFTWARE QUALITY ANALYST Appointment Department of Laboratory Medicine in [address] [phone] Allyn Alfredo M.D. [address] [place] [phone] 07/09/2023 9:15 AM SOFTWARE QUALITY ANALYST Office Visit Department of Family Medicine, [facility], in [address] [phone] Allyn Alfredo M.D. [address] [place] [phone] 07/16/2023 12:06 PM SOFTWARE QUALITY ANALYST Hospital Encounter Post Anesthesia Care Unit in [place] [address] [place] [phone] Cristhian Grant M.B., Ch.B., Ph.D. [address] [place] [phone] 07/16/2023 12:06 PM SOFTWARE QUALITY ANALYST - 07/16/2023 3:35 PM SOFTWARE QUALITY ANALYST Surgery [facility] MAIN OR [address] [place] [phone] Cristhian Grant M.B., Ch.B., Ph.D. [address] [place] [phone] CREATION FISTULA RADIOCEPHALIC ARTERIOVENOUS 07/20/2023 11:00 AM CDT Office Visit Department of Orthopedic Surgery in [address] [phone] Cindy Walker D.P.M. [address] [place] [phone] Discharge Disposition: Home or Self Care 08/25/2023 3:15 PM CDT Telemedicine Department of Sleep Medicine in [place], [place] [address], [place] [phone] Emilee Emanuel APRN, C.N.P., D.N.P., M.S.N. [address], [place] [phone] Scheduled Procedures Name Priority Associated Diagnoses Date/Ti me CREATION FISTULA RADIOCEPHALIC ARTERIOVENOUS Chronic Kidney Disease Stage 5 Glomerular 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) 07/16/2023 12:06 PM SOFTWARE QUALITY ANALYST CREATION FISTULA BRACHIOCEPHALIC ARTERIOVENOUS Chronic Kidney Disease Stage 5 Glomerular 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) 07/16/2023 12:06 PM SOFTWARE QUALITY ANALYST documented as of this encounter Visit Diagnoses Not on filedocumented in this encounter Additional Health Concerns Assessment Noted Time PHQ-9 Depression Total Score: 0 02/24/20 23 1:03 PM CDT documented as of this encounter Care Teams Decorating Kiln Operator Relationship Specialty Start Date End Date Allyn Alfredo M.D. [address] [phone] PCP - General Family Medicine 04/05/21 documented as of this encounter
--- OUTSIDE RECORDS SUMMARY | 2023-06-24 18:10 | XMS_ITS | Encounter Summary ---
Author Name Unknown Organization [facility] Address [address] [place] [address] Care Team Providers Care Guest Services Associate Name Role Phone Allyn Alfredo M.D. Primary Care Pro vider Encounter Details Date Type Department Care Team (Late st Contact Info) Description 04/28/2023 Documentation Division of Nephrology and Hypertension in [place], [place] [address] [place] [phone] Heather Pitts M.D., Ph.D. [address] [place] [phone] Social History Tobacco Use Types Packs/Day Years [...] any clubs o r organizations such as mandaeism groups, unions, fraternal or athletic groups, or [...] Answer Date Recorded PHQ-2 Score 0 02/23/2023 [facility]at ional [facility] [...] place to sleep or slept in a [place] health care facility (including now)? No 09/11/2022 Depression Answer Date [...] Sex Assigned at Female 03/27/2017 3:30 PM SUPERVISOR STERILE PROCESSING Gender Identity Female 03/27/2017 3:30 PM SUPERVISOR STERILE PROCESSING Sexual Orientation Straight 03/27/2017 3: 30 PM SUPERVISOR STERILE PROCESSING documented as of this encounter Progress Notes * Heather Pitts M.D., Ph.D. 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 She also has history of hypertension, obstructive sleep apnea, history of breast cancer. She had her PD catheter removed on 04/16/2023. Her PD catheter incision site has been healing properly. Her abdominal bruise is also healing well. She has presented on and off diarrhea, she describes it as a midnight event. She describes more frequently loose stool events than watery events. She does not have dizziness or lightheadedness. However, she does have noticed several events of hypoglycemia at nighttime during her sleep. She gets alerted by her glucose monitor device. She contacted her PCP yesterday for instructions. I will reach out to her as well for awareness. Missy Chappell M.D., Ph.D. RVISOR STERILE PROCESSING documented in this encounter Plan of Treatment Upcoming Encounters Date Type Department Care Team (Latest Contact Info) Description 07/09/2023 8:20 AM SUPERVISOR STERILE PROCESSING Appointment Department of Laboratory Medicine in [address] [phone] Allyn Alfredo M.D. [address] [place] [phone] 07/09/2023 9:15 AM SUPERVISOR STERILE PROCESSING Office Visit Department of Family Medicine, [facility], in [address] [phone] Allyn Alfredo M.D. [address] [place] [phone] 07/16/2023 12:06 PM SUPERVISOR STERILE PROCESSING Hospital Encounter Post Anesthesia Care Unit in [address] [phone] Cristhian Grant M.B., Ch.B., Ph.D. [address] [place] [phone] 07/16/2023 12:06 PM SUPERVISOR STERILE PROCESSING - 07/16/2023 3:35 PM SUPERVISOR STERILE PROCESSING Surgery [facility] ROM[facility] MAIN OR [address] [place] [phone] Cristhian Grant M.B., Ch.B., Ph.D. [address] [place] [phone] CREATION FISTULA RADIOCEPHALIC ARTERIOVENOUS 07/20/2023 11:00 AM CDT Office Visit Department of Orthopedic Surgery in [address] [phone] Cindy Walker, ChristinePLeidaMLeida [address] [place] [phone] Discharge Disposition: Home or Self Care 08/25/2023 3:15 PM CDT Telemedicine Department of Sleep Medicine in [place], [place] [address] [phone] Emilee Emanuel APRN, C.N.P., D.N.P., M.S.N. [address] [phone] Scheduled Procedures Name Priority Associated Diagnoses Date/Ti me CREATION FISTULA RADIOCEPHALIC ARTERIOVENOUS Chronic Kidney Disease Stage 5 Glomerular 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) 07/16/2023 12:06 PM SUPERVISOR STERILE PROCESSING CREATION FISTULA BRACHIOCEPHALIC ARTERIOVENOUS Chronic Kidney Disease Stage 5 Glomerular 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) 07/16/2023 12:06 PM SUPERVISOR STERILE PROCESSING documented as of this encounter Visit Diagnoses Not on filedocumented in this encounter Additional Health Concerns Assessment Noted Time PHQ-9 Depression Total Score: 0 02/24/20 23 1:03 PM CDT documented as of this encounter Care Teams Guest Services Associate Relationship Specialty Start Date End Date Allyn Alfredo M.D. [address] [phone] PCP - General Family Medicine 04/05/21 documented as of this encounter
--- OUTSIDE RECORDS SUMMARY | 2023-06-24 18:10 | XMS_ITS | Encounter Summary ---
Author Name Unknown Organization [facility] Address [address] [place] [address] Care Team Providers Care [employer] Administrator Name Role Phone Allyn Alfredo M.D. Primary Care Pro vider Reason for Visit * Reason Comments Med Refill Encounter Details Date Type Department Care Team (Late st Contact Info) Description 05/18/2023 Refill Division of Nephrology and Hypertension in [place], [place] [address] [place] [phone] Wilfrid Lincoln Jr., D.O. [address] [place] [phone] Med Refill Social History Tobacco Use Types Packs/Day Years [...] How often do you attend chur or scientologist services? 1 to 4 times per year 09/11/2022 Do you belong to any clubs o r organizations such as oriental orthodox groups, unions, fraternal or athletic groups, or [...] Answer Date Recorded PHQ-2 Score 0 02/23/2023 [facility] - Occupational [...] place to sleep or slept in a long term (including now)? No 09/11/2022 Depression Answer Date [...] Sex Assigned at Female 03/27/2017 3:30 PM CHEMICAL PROCESS OPERATOR Gender Identity Female 03/27/2017 3:30 PM CHEMICAL PROCESS OPERATOR Sexual Orientation Straight 03/27/2017 3: 30 PM CHEMICAL PROCESS OPERATOR documented as of this encounter Plan of Treatment Upcoming Encounters Date Type Department Care Team (Latest Contact Info) Description 07/09/2023 8:20 AM CHEMICAL PROCESS OPERATOR Appointment Department of Laboratory Medicine in [place] [phone] Allyn Alfredo M.D. [address] [place] [phone] 07/09/2023 9:15 AM CHEMICAL PROCESS OPERATOR Office Visit Department of Family Medicine, [facility], in [address] [phone] Allyn Alfredo M.D. [address] [place] [phone] 07/16/2023 12:06 PM CHEMICAL PROCESS OPERATOR Hospital Encounter Post Anesthesia Care Unit in [address] [phone] Cristhian Grant M.B., Ch.B., Ph.D. [address] [place] [phone] 07/16/2023 12:06 PM CHEMICAL PROCESS OPERATOR - 07/16/2023 3:35 PM CHEMICAL PROCESS OPERATOR Surgery RST ROMB MAIN OR [address] [place] [phone] Cristhian Grant M.B., Ch.B., Ph.D. [address] [place] [phone] CREATION FISTULA RADIOCEPHALIC ARTERIOVENOUS 07/20/2023 11:00 AM CDT Office Visit Department of Orthopedic Surgery in [address] [phone] Cindy Walker D.PAv [address] [place] [phone] Discharge Disposition: Home or Self Care 08/25/2023 3:15 PM CDT Telemedicine Department of Sleep Medicine in [place], [place] [address] [place] [phone] Emilee Emanuel APRN, C.N.P., D.N.P., M.S.N. [address] [place] [phone] Scheduled Procedures Name Priority Associated Diagnoses Date/Ti me CREATION FISTULA RADIOCEPHALIC ARTERIOVENOUS Chronic Kidney Disease Stage 5 Glomerular 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) 07/16/2023 12:06 PM CHEMICAL PROCESS OPERATOR CREATION FISTULA BRACHIOCEPHALIC ARTERIOVENOUS Chronic Kidney Disease Stage 5 Glomerular 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) 07/16/2023 12:06 PM CHEMICAL PROCESS OPERATOR documented as of this encounter Visit Diagnoses Not on filedocumented in this encounter Additional Health Concerns Assessment Noted Time PHQ-9 Depression Total Score: 0 02/24/20 23 1:03 PM CDT documented as of this encounter Care Teams [employer] Administrator Relationship Specialty Start Date End Date Allyn Alfredo M.D. [address] [place] [phone] PCP - General Family Medicine 04/05/21 documented as of this encounter
--- OUTSIDE RECORDS SUMMARY | 2023-06-24 18:10 | XMS_ITS | Encounter Summary ---
Author Name Unknown Organization [facility] Address [address] [place] [address] Care Team Providers Care Hand Lacer Name Role Phone Allyn Bates M.D. Primary Care Pro vider Encounter Details Date Type Department Care Team (Late st Contact Info) Description 04/27/2023 E-Visit Department of Family Medicine, [facility], in [address] [phone] Allyn Bates M.D. [address] [place] [phone] Insulin and diarrhea Social History Tobacco Use Types Packs/Day Years [...] often do you attend chur ch or anabaptism services? 1 to 4 times per year 09/11/2022 Do you belong to any clubs o r organizations such as mosque groups, unions, fraternal or athletic groups, or [...] Answer Date Recorded PHQ-2 Score 0 02/23/2023 [facility] of Occupat ional Health - Occupational Stress [...] place to sleep or slept in a snf (including now)? No 09/11/2022 Depression Answer Date [...] Sex Assigned at Female 03/27/2017 3:30 PM THERAPEUTIC RECREATION LEADER Gender Identity Female 03/27/2017 3:30 PM THERAPEUTIC RECREATION LEADER Sexual Orientation Straight 03/27/2017 3: 30 PM THERAPEUTIC RECREATION LEADER documented as of this encounter Progress Notes * Allyn Bates M.D. - 04/28/2023 7:22 PM CST E-CARE ONLINE VISIT SUBJECTIVE Concetta Medina is a 77 y.o. female who initiated the following eVisit via portal message. Primary concerns/questions to be addressed include hypoglycemia. RESPONSE/RECOMMENDATIONS Huy Mccann, Thanks for reaching out. We definitely recommend decreasing the Basaglar. Let's try going down to 4units at bedtime. We may need to go lower or stop altogether. Your last A1c in December had gone downquite a bit to, 6.4%. Please keep us updated on how your blood sugars do with this change. Allyn Byers MD #1 Diabetes Mellitus Type 2 With Diabetic Nephropathy (HCC) I spent a total of 5 minutes reviewing the patient???s prior medical records and current eVisit submission. APEUTIC RECREATION LEADER documented in this encounter Miscellaneous Notes * Addendum Note - Allyn Bates M.D. - 04/28/2023 7:27 PM THERAPEUTIC RECREATION LEADER Addended by: ALLYN BATES on: 04/28/2023 07:27 PM Modules accepted: Orders, Level of Service APEUTIC RECREATION LEADER documented in this encounter Plan of Treatment Upcoming Encounters Date Type Department Care Team (Latest Contact Info) Description 07/09/2023 8:20 AM THERAPEUTIC RECREATION LEADER Appointment Department of Laboratory Medicine in [address] [phone] Allyn Bates M.D. [address] [place] [phone] 07/09/2023 9:15 AM THERAPEUTIC RECREATION LEADER Office Visit Department of Family Medicine, [facility], in [address] [phone] Allyn Bates M.D. [address] [place] [phone] 07/16/2023 12:06 PM THERAPEUTIC RECREATION LEADER Hospital Encounter Post Anesthesia Care Unit in [place], [place] [address] [place] [phone] Cristhian Grant M.B., Ch.B., Ph.D. [address] [place] [phone] 07/16/2023 12:06 PM THERAPEUTIC RECREATION LEADER - 07/16/2023 3:35 PM THERAPEUTIC RECREATION LEADER Surgery [facility] ROM[facility] MAIN OR [address] [place] [phone] Cristhian Grant M.B., Ch.B., Ph.D. [address] [place] [phone] CREATION FISTULA RADIOCEPHALIC ARTERIOVENOUS 07/20/2023 11:00 AM CDT Office Visit Department of Orthopedic Surgery in [address] [phone] Cindy Walker D.PLeidaM. [address] [place] [phone] Discharge Disposition: Home or Self Care 08/25/2023 3:15 PM CDT Telemedicine Department of Sleep Medicine in [place], [place] [address], [place] [phone] Emilee Emanuel APRN, C.N.P., D.N.P., M.S.N. [address], [place] [phone] Scheduled Procedures Name Priority Associated Diagnoses Date/Ti me CREATION FISTULA RADIOCEPHALIC ARTERIOVENOUS Chronic Kidney Disease Stage 5 Glomerular 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) 07/16/2023 12:06 PM THERAPEUTIC RECREATION LEADER CREATION FISTULA BRACHIOCEPHALIC ARTERIOVENOUS Chronic Kidney Disease Stage 5 Glomerular 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) 07/16/2023 12:06 PM THERAPEUTIC RECREATION LEADER documented as of this encounter Visit Diagnoses Diagnosis Chronic Kidney Disease Stage 5 Glomerular 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)- Primary Diabetes Mellitus Type 2 With Diabetic Nephropathy (HCC)- Primary Chronic Kidney Disease Stage 5 Glomerular 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) documented in this encounter Additional Health Concerns Assessment Noted Time PHQ-9 Depression Total Score: 0 02/24/20 23 1:03 PM CDT documented as of this encounter Care Teams Hand Lacer Relationship Specialty Start Date End Date Allyn Bates M.D. [address] [place] [phone] PCP - General Family Medicine 04/05/21 documented as of this encounter
--- OUTSIDE RECORDS SUMMARY | 2023-06-24 18:10 | XMS_ITS | Encounter Summary ---
Author Name Unknown Organization [facility] Address [address] [place] [address] Care Team Providers Care Dispensing Lead Name Role Phone Allyn Alfredo M.D. Primary Care Pro vider Reason for Referral * Outpatient (Routine) - Authorized Specialty Diagnoses / Procedures Referred By Esther zamorano Referred To Contact Sleep Medicine Emilee Emanuel APRN, C.N.P., D.N.P., M.S.N. [address] [place] [phone] [facility] Region Referral ID Status Reason Start Date Expiration Date V isits Requested Visits Authorized [id number] Authorized 05/01/2023 04/30/2026 1 1 Scheduling Instructions Must be 61-90 days after receiving BiPAP NNER Reason for Visit * Reason Comments Results * Outpatient (Routine) - Closed Specialty Diagnoses / Procedures Referred By Esther t Referred To Contact Sleep Emilee Bentley APRN, C.N.P., D.N.P., M.S.N. [address] [place] [phone] [facility] Region Referral ID Status Reason Start Date Expiration Date Visits Re quested Visits Authorized [id number] Closed 01/27/2023 01/26/2026 1 1 Encounter Details Date Type Department Care Team (Late st Contact Info) Description 05/01/2023 11:45 AM RETANNER Telemedicine Department of Sleep Medicine in [place], [place] [address] [place] [phone] Emilee Emanuel APRN, C.N.P., D.N.P., M.S.N. [address] [place] [phone] Apnea Sleep Obstructive (Primary Dx); Periodic Limb Movement Disorder Social History Tobacco Use Types Packs/Day Years [...] week 09/11/2022 How often do you attend [facility] or synagogue services? 1 to 4 times per year 09/11/2022 Do you belong to any clubs o r organizations such as bahai groups, unions, fraternal or athletic groups, or [...] Answer Date Recorded PHQ-2 Score 0 02/23/2023 [facility] of Occupat ional [facility] - Occupational Stress Questionnaire Answer [...] place to sleep or slept in a residential (including now)? No 09/11/2022 Depression Answer Date [...] Sex Assigned at Female 03/27/2017 3:30 PM RETANNER Gender Identity Female 03/27/2017 3:30 PM RETANNER Sexual Orientation Straight 03/27/2017 3: 30 PM RETANNER documented as of this encounter Patient Instructions * Patient Instructions* Emilee Emanuel APRN, C.N.P., D.N.P., M.S.N. - 05/01/2023 11:45 AM RETANNER -Your sleep study shows that you have severe obstructive sleep apnea. CPAP is recommended first line for treatment of this. -Contact [facility] in [place] to arrange a time to get set up with your machine. [facility] [address], [place] [address] -Once you receive your machine, use it during all sleep (Medicare requires at least 4 hours of use 70% of the time in a 30 day window to cover after the first 90 days). -If there is anything about it that is not tolerable, please let your sleep store tech or myself know so we can help troubleshoot. -Follow up with me via video or in person in about 3 months (Medicare requires 61-90 days after youreceive your machine). NNER * Attachments The following attachments cannot be sent through Care Everywhere. * Using Positive Airway Pressure (Bengali) documented in this encounter Progress Notes * Emilee Emanuel APRN, C.N.P., Paras, M.S.N. - 05/01/2023 11:45 AM RETANNER SUBJECTIVE CHIEF COMPLAINT / REASON FOR VISIT Results Consult conducted via real-time audio/video technology by Emilee Emanuel APRN, C.N.P., Paras, M.S.N.in [facility] to the patient in Patient's Home. HISTORY OF PRESENT ILLNESS Concetta Medina is a 77 y.o. female who presents to discuss polysomnogram results, which was performed on 02/03/2023. Her sleep history is as follows: August 14, 2011: Diagnosed with mild to moderate SHAMIKA by PSG at [facility] in [place]. Mean O2 sats 94.1%, low 86%. PLM index elevated at 148.9, PLM arousal index 93.2. CPAP at 9 effective at improving sleep architecture and stabilizing O2 and airway, although not pursued. Mirapex added for PLMD although stopped shortly thereafter due to concern that it was contributing to edema. Later treated with gabapentin. Weight at the time of diagnosis was 96.1 kg. Polysomnogram results were reviewed in detail with the patient.Raw data is not available to me for review however we did discuss her detailed interpretation. During the diagnostic portion of the study she had an overall AHI of 31.0, RDI 35.7. Mean oxygen saturation was 89.9% with a low of 80.0%. She was initiated on CPAP therapy shortly into the night, titrating up to a maximum of 15 cm of water pressure. This resulted in a residual AHI of 21.2 and she subsequently was transitioned to BiPAP up to a maximum of 24/20. This resulted in a residual AHI of 0, mean oxygen saturation 95.0%, low 91.0%. She did have elevated periodic limb movement index of 69.5, PLM arousal index 6.2, during the diagnostic portion of the study. This improved to 7.4/0 during the therapeutic portion of the study. Medication list reviewed. OBJECTIVE not currently . PHYSICAL EXAMINATION General: Alert, pleasant female appearing in no acute distress. Responds appropriately to questionsand contributes meaningfully to conversation. ASSESSMENT / PLAN #1 Severe Apnea Sleep Obstructive We will proceed with PAP therapy as we have previously discussed. BiPAP at was prescribed andsent to the [facility] in [place] per her preference. Instructions were given on how to obtain the machine and use during all sleep is recommended. We did review Medicare compliance requirements for ongoing coverage after the 1st 90 days. #2 Periodic Limb Movement Disorder Her periodic limb movements did dissipate with PAP therapy and I suspect that this will improve. Inthe meantime she may continue her Mirapex. We will see her back 61-90 days after she receives her BiPAP to determine efficacy and compliance of the regimen and to review download report at that time as well. The patient verbalized understanding of the plan of care and was in agreement. All questions were answered today. Total time 35 minutes. NNER documented in this encounter Plan of Treatment Upcoming Encounters Date Type Department Care Team (Latest Contact Info) Description 07/09/2023 8:20 AM RETANNER Appointment Department of Laboratory Medicine in [address] [phone] Allyn Alfredo M.D. [address] [place] [phone] 07/09/2023 9:15 AM RETANNER Office Visit Department of Family Medicine, [facility], in [address] [phone] Allyn Alfredo M.D. [address] [place] [phone] 07/16/2023 12:06 PM RETANNER Hospital Encounter Post Anesthesia Care Unit in [address] [phone] Cristhian Grant M.B., Ch.B., Ph.D. [address] [place] [phone] 07/16/2023 12:06 PM RETANNER - 07/16/2023 3:35 PM RETANNER Surgery RST ROMB MAIN OR [facility] [place] [phone] Cristhian Grant M.B., Ch.B., Ph.D. [address] [place] [phone] CREATION FISTULA RADIOCEPHALIC ARTERIOVENOUS 07/20/2023 11:00 AM CDT Office Visit Department of Orthopedic Surgery in [address] [phone] Cindy Walker D.PLeidaM. [address] [place] [phone] Discharge Disposition: Home or Self Care 08/25/2023 3:15 PM CDT Telemedicine Department of Sleep Medicine in [place], [place] [address], [place] [phone] Emilee Emanuel APRN, C.N.P., D.N.P., M.S.N. [address], [place] [phone] Scheduled Procedures Name Priority Associated Diagnoses Date/Ti me CREATION FISTULA RADIOCEPHALIC ARTERIOVENOUS Chronic Kidney Disease Stage 5 Glomerular 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) 07/16/2023 12:06 PM RETANNER CREATION FISTULA BRACHIOCEPHALIC ARTERIOVENOUS Chronic Kidney Disease Stage 5 Glomerular 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) 07/16/2023 12:06 PM RETANNER Scheduled Referrals Name Type Priority Associated Diagnoses Orde r Schedule Sleep Medicine office visit (clinic) Outpatient Referral Routine Expected: 07/31/2023 (Approximate), Expires: 07/30/2024 documented as of this encounter Visit Diagnoses Diagnosis Chronic Kidney Disease Stage 5 Glomerular 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)- Primary Apnea Sleep Obstructive- Primary Periodic Limb Movement Disorder Chronic Kidney Disease Stage 5 Glomerular 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) documented in this encounter Additional Health Concerns Assessment Noted Time PHQ-9 Depression Total Score: 0 02/24/20 23 1:03 PM CDT documented as of this encounter Care Teams Dispensing Lead Relationship Specialty Start Date End Date Allyn Alfredo M.D. [address] [phone] PCP - General Family Medicine 04/05/21 documented as of this encounter
--- OUTSIDE RECORDS SUMMARY | 2023-06-24 18:10 | XMS_ITS | Encounter Summary ---
Author Name Unknown Organization [facility] Address [address] [place] [address] Care Team Providers Care Floor Cashier Name Role Phone Allyn Alfredo M.D. Primary Care Pro vider Reason for Referral * Outpatient (Routine) - Authorized Specialty Diagnoses / Procedures Referred By Esther t Referred To Contact Allyn Alfredo M.D. [phone] [place] [phone] [facility] Referral ID Status Reason Start Date Expiration Date V isits Requested Visits Authorized [id number] Authorized 06/16/2023 12/15/2024 1 1 Scheduling Instructions Nurse AWV Do not schedule prior to due date to ensure insurance coverage Visit: Medicare Annual Wellness due on 07/31/2023. ERY MANAGER Encounter Details Date Type Department Care Team (Late st Contact Info) Description 06/16/2023 Orders Only [facility] PCP [facility] Allyn Alfredo M.D. [address] [place] [phone] Social History Tobacco Use Types Packs/Day Years [...] often do you attend chur ch or confucianist services? 1 to 4 times per year 09/11/2022 Do you belong to any clubs o r organizations such as denominational groups, unions, fraternal or athletic groups, or [...] 0 02/23/2023 [facility] Occupational Stress Questionnaire Answer Date Recorded [...] Sex Assigned at Female 03/27/2017 3:30 PM GROCERY MANAGER Gender Identity Female 03/27/2017 3:30 PM GROCERY MANAGER Sexual Orientation Straight 03/27/2017 3: 30 PM GROCERY MANAGER documented as of this encounter Plan of Treatment Upcoming Encounters Date Type Department Care Team (Latest Contact Info) Description 07/09/2023 8:20 AM GROCERY MANAGER Appointment Department of Laboratory Medicine in [address] [phone] Allyn Alfredo M.D. [address] [place] [phone] 07/09/2023 9:15 AM GROCERY MANAGER Office Visit Department of Family Medicine, [facility], in [address] [phone] Allyn Alfredo M.D. [address] [place] [phone] 07/16/2023 12:06 PM GROCERY MANAGER Hospital Encounter Post Anesthesia Care Unit in [address] [phone] Cristhian Grant M.B., Ch.B., Ph.D. [address] [place] [phone] 07/16/2023 12:06 PM GROCERY MANAGER - 07/16/2023 3:35 PM GROCERY MANAGER Surgery [facility] OR [address] [place] [phone] Cristhian Grant M.B., Ch.B., Ph.D. [address] [place] [phone] CREATION FISTULA RADIOCEPHALIC ARTERIOVENOUS 07/20/2023 11:00 AM CDT Office Visit Department of Orthopedic Surgery in [address] [phone] Cindy Walker D.PLeidaM. [address] [place] [phone] Discharge Disposition: Home or Self Care 08/25/2023 3:15 PM CDT Telemedicine Department of Sleep Medicine in [place], [place] [address] [place] [phone] Emilee Emanuel APRN, C.N.P., D.N.P., M.S.N. [address] [place] [phone] Scheduled Procedures Name Priority Associated Diagnoses Date/Ti me CREATION FISTULA RADIOCEPHALIC ARTERIOVENOUS Chronic Kidney Disease Stage 5 Glomerular 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) 07/16/2023 12:06 PM GROCERY MANAGER CREATION FISTULA BRACHIOCEPHALIC ARTERIOVENOUS Chronic Kidney Disease Stage 5 Glomerular 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) 07/16/2023 12:06 PM GROCERY MANAGER Scheduled Referrals Name Type Priority Associated Diagnoses Orde r Schedule Primary Care nurse visit (clinic) - [facility] Region; Medicare Annual Wellness Outpatient Referral Routine Expected: 07/14/2023, Expires: 12/13/2023 documented as of this encounter Visit Diagnoses Not on filedocumented in this encounter Additional Health Concerns Assessment Noted Time PHQ-9 Depression Total Score: 0 02/24/20 23 1:03 PM CDT documented as of this encounter Care Teams Floor Cashier Relationship Specialty Start Date End Date Allyn Alfredo M.D. [address] [place] [phone] PCP - General Family Medicine 04/05/21 documented as of this encounter
--- OUTSIDE RECORDS SUMMARY | 2023-06-24 18:11 | XMS_ITS | Encounter Summary ---
Author Name Unknown Organization [facility] Address [address] [place] [id number] Care Team Providers Care Primary Care Provider Name Role Phone Allyn Alfredo M.D. Primary Care Pro vider Encounter Details Date Type Department Care Team (Late st Contact Info) Description 04/08/2023 Clinical Communication Division of Pediatric Surgery in [place], [place] [address] [place] [phone] Christine Warren Jr., M.D. [address] [place] [phone] Social History Tobacco Use Types Packs/Day Years [...] How often do you attend chur or episcopalian services? 1 to 4 times per year [...] Date Recorded PHQ-2 Score 0 02/23/2023 [facility] - [...] Sex Assigned at Female 03/27/2017 3:30 PM DYE MIXER Gender Identity Female 03/27/2017 3:30 PM DYE MIXER Sexual Orientation Straight 03/27/2017 3: 30 PM DYE MIXER documented as of this encounter Plan of Treatment Upcoming Encounters Date Type Department Care Team (Latest Contact Info) Description 07/09/2023 8:20 AM DYE MIXER Appointment Department of Laboratory Medicine in [address] [phone] Allyn Alfredo M.D. [address] [place] [phone] 07/09/2023 9:15 AM DYE MIXER Office Visit Department of Family Medicine, [facility], in [address] [phone] Allyn Alfredo M.D. [address] [place] [phone] 07/16/2023 12:06 PM DYE MIXER Hospital Encounter Post Anesthesia Care Unit in [address] [phone] Cristhian Grant M.B., Ch.B., Ph.D. [address] [place] [phone] 07/16/2023 12:06 PM DYE MIXER - 07/16/2023 3:35 PM DYE MIXER Surgery [facility] OR [address] [place] [phone] Cristhian Grant M.B., Ch.B., Ph.D. [address] [place] [phone] CREATION FISTULA RADIOCEPHALIC ARTERIOVENOUS 07/20/2023 11:00 AM CDT Office Visit Department of Orthopedic Surgery in [address] [phone] Cindy Walker D.P.M. [address] [place] [phone] Discharge Disposition: Home or Self Care 08/25/2023 3:15 PM CDT Telemedicine Department of Sleep Medicine in [place], [place] [address] [place] [phone] Emilee Emanuel APRN, C.N.P., D.N.P., M.S.N. [address] [place] [phone] Scheduled Procedures Name Priority Associated Diagnoses Date/Ti me CREATION FISTULA RADIOCEPHALIC ARTERIOVENOUS Chronic Kidney Disease Stage 5 Glomerular 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) 07/16/2023 12:06 PM DYE MIXER CREATION FISTULA BRACHIOCEPHALIC ARTERIOVENOUS Chronic Kidney Disease Stage 5 Glomerular 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) 07/16/2023 12:06 PM DYE MIXER documented as of this encounter Visit Diagnoses Not on filedocumented in this encounter Additional Health Concerns Assessment Noted Time PHQ-9 Depression Total Score: 0 02/24/20 23 1:03 PM CDT documented as of this encounter Care Teams Primary Care Provider Relationship Specialty Start Date End Date Allyn Alfredo M.D. [phone] [place] [phone] PCP - General Family Medicine 04/05/21 documented as of this encounter
--- OUTSIDE RECORDS SUMMARY | 2023-06-24 18:11 | XMS_ITS | Encounter Summary ---
Author Name Unknown Organization [facility] Address [address] [place] [phone] Care Team Providers Care Day Care Provider Name Role Phone Allyn Alfredo M.D. Primary Care Pro vider Reason for Visit * Outpatient (Routine) - Closed Specialty Diagnoses / Procedures Referred By Esther zamorano Referred To Contact Nephrology and Hypertension Wilfrid Lincoln Jr., D.O. [address] [place] [phone] [facility] Referral ID Status Reason Start Date Expiration Date Visits Re quested Visits Authorized [id number] Closed 04/07/2023 04/06/2026 1 1 Encounter Details Date Type Department Care Team (Late st Contact Info) Description 04/14/2023 11:00 AM ASSOCIATE CHEMIST Nurse Only Division of Nephrology and Hypertension in [place], [place] [address] [place] [phone] Wilfrid Lincoln Jr., D.OLeida [address] [place] [phone] Beth Bush R.N. [address] [place] [phone] Social History Tobacco Use Types Packs/Day Years [...] How often do you attend chur or confucianism services? 1 to 4 times per year 09/11/2022 Do you belong to any clubs o r organizations such as anabaptism groups, unions, fraternal or athletic groups, or [...] Answer Date Recorded PHQ-2 Score 0 02/23/2023 [facility] - [...] Sex Assigned at Female 03/27/2017 3:30 PM ASSOCIATE CHEMIST Gender Identity Female 03/27/2017 3:30 PM ASSOCIATE CHEMIST Sexual Orientation Straight 03/27/2017 3: 30 PM ASSOCIATE CHEMIST documented as of this encounter Progress Notes * Beth Bush R.N. - 04/14/2023 11:00 AM CST REFERRAL Wilfrid Lincoln Jr., D.O. [address] [place] [phone] CHIEF COMPLAINT/PURPOSE OF VISIT REASON FOR REFERRAL: Needs education and evaluation for permanent vascular access for dialysis HISTORY OF PRESENT ILLNESS LOCATION OF ACCESS: Right internal jugular PERTINENT PROCEDURAL HISTORY: 77 y.o., female, referred for education and evaluation for permanent vascular access for dialysis. Her kidney disease is related to DM and ryanne term NSAID use. She dialyzes at [facility] on a Thursday, and Thursday schedule. Significant Medical History: carpal tunnel. On PD from 2019-February 2023 PACEMAKER: No DIABETES: Insulin dependent ANTICOAGULATION: None LABORATORY RESULTS: Please see [employer] for current labs. ECHOCARDIOGRAM: 01/16/23: 66% PHYSICAL EXAMINATION Patient is left handed. She has no hand complaints aside from occasional numbness of hands. She does not recall ever having a PICC line. She is a diabetic, I instructed her once the fistula side is known to not check blood sugars on that side anymore. Past history of vascular accesses: None IMPRESSION/REPORT/PLAN I reviewed the following booklets with the patient and her son: Hemodialysis Catheters ([id number]), Hemodialysis Fistula and Graft ([id number]) and the Hemodialysis Vascular Access sheet from [employer] ([id number]). I gave her an red/orange Save your Vein bracelet. All questions were answered. Surgeon: Patient seen by Dr. Grant Plan: right Radial cephalic av fistula vs. Brachial cephalic Surgery: Is scheduled for 06/17/22. Checklist: the Checklist for Surgical Patients ([id number]) was given to the patient with the following instructions: Report to [facility] admissions at the time told to you when you call in the night before. Report fasting after midnight, no am breakfast, but take your am meds with water. Insulin Directions: no changes to evening Basaglar insulin needed Anticoagulation medications directions: na ANA: Dr. Lincoln completed ANA on 04/07/23. CIATE CHEMIST documented in this encounter Plan of Treatment Upcoming Encounters Date Type Department Care Team (Latest Contact Info) Description 07/09/2023 8:20 AM ASSOCIATE CHEMIST Appointment Department of Laboratory Medicine in [address] [phone] [place] Allyn Ryan M.D. [address] [place] [phone] 07/09/2023 9:15 AM ASSOCIATE CHEMIST Office Visit Department of Family Medicine, [facility], in [address] [phone] Byers Allyn Ryan M.D. [address] [place] [phone] 07/16/2023 12:06 PM ASSOCIATE CHEMIST Hospital Encounter Post Anesthesia Care Unit in [address] [phone] Cristhian Grant M.B., Ch.B., Ph.D. [address] [place] [phone] 07/16/2023 12:06 PM ASSOCIATE CHEMIST - 07/16/2023 3:35 PM ASSOCIATE CHEMIST Surgery [facility] OR [address] [place] [phone] Cristhian Grant M.B., Ch.B., Ph.D. [address] [place] [phone] CREATION FISTULA RADIOCEPHALIC ARTERIOVENOUS 07/20/2023 11:00 AM CDT Office Visit Department of Orthopedic Surgery in [address] [phone] Cindy Walker D.PLeidaMLeida [address] [place] [phone] Discharge Disposition: Home or Self Care 08/25/2023 3:15 PM CDT Telemedicine Department of Sleep Medicine in [place], [place] [address] [place] [phone] Emilee Emanuel APRN, C.N.P., D.N.P., M.S.N. [address] [place] [phone] Scheduled Procedures Name Priority Associated Diagnoses Date/Ti me CREATION FISTULA RADIOCEPHALIC ARTERIOVENOUS Chronic Kidney Disease Stage 5 Glomerular 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) 07/16/2023 12:06 PM ASSOCIATE CHEMIST CREATION FISTULA BRACHIOCEPHALIC ARTERIOVENOUS Chronic Kidney Disease Stage 5 Glomerular 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) 07/16/2023 12:06 PM ASSOCIATE CHEMIST documented as of this encounter Visit Diagnoses Not on filedocumented in this encounter Additional Health Concerns Assessment Noted Time PHQ-9 Depression Total Score: 0 02/24/20 23 1:03 PM CDT documented as of this encounter Care Teams Day Care Provider Relationship Specialty Start Date End Date Allyn Alfredo M.D. [address] [place] [phone] PCP - General Family Medicine 04/05/21 documented as of this encounter
--- OUTSIDE RECORDS SUMMARY | 2023-06-24 18:11 | XMS_ITS | Encounter Summary ---
Author Name Unknown Organization [facility] Address [address] [place] [address] Care Team Providers Care Foot Caster Name Role Phone Allyn Alfredo M.D. Primary Care Pro vider Reason for Referral * Outpatient (Routine) - Closed Specialty Diagnoses / Procedures Referred By Esther zamorano Referred To Contact Diagnoses Chronic Kidney Disease Stage 5 Glomerular 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) Diabetes Mellitus Type 2 With Diabetic Nephropathy (HCC) Hyperparathyroidism Renal Secondary (HCC) Anemia Of Chronic Renal Disease Dialysis Peritoneal Status (HCC) Encounter For Other Preprocedural Examination Procedures US Upper Extremity Bilateral Dialysis Mapping Wilfrid Lincoln Jr., D.O. [address] [place] [address] [facility] Referral ID Status Reason Start Date Expiration Date Visits Re quested Visits Authorized [id number] Closed 04/07/2023 04/06/2024 1 1 K9 HANDLER Reason for Visit * Outpatient (Routine) - Closed Specialty Diagnoses / Procedures Referred By Esther zamorano Referred To Contact Diagnoses Chronic Kidney Disease Stage 5 Glomerular 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) Diabetes Mellitus Type 2 With Diabetic Nephropathy (HCC) Hyperparathyroidism Renal Secondary (HCC) Anemia Of Chronic Renal Disease Dialysis Peritoneal Status (HCC) Encounter For Other Preprocedural Examination Procedures US Upper Extremity Bilateral Dialysis Mapping Wilfrid Lincoln Jr., D.O. [address] [place] [address] [facility] Referral ID Status Reason Start Date Expiration Date Visits Re quested Visits Authorized [id number] Closed 04/07/2023 04/06/2024 1 1 Encounter Details Date Type Department Care Team (Latest Contact Info) Description 04/14/2023 9:00 AM K9 HANDLER - 04/14/2023 11:59 PM [facility] Hospital Encounter Department of Radiology, [facility], in [place], [place] [address] [place] [address] Wilfrid Lincoln Jr., D.O. [address] [place] [address] Chronic Kidney Disease Stage 5 Glomerular 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); Diabetes Mellitus Type 2 With Diabetic Nephropathy (HCC); Hyperparathyroidism Renal Secondary (HCC); Anemia Of Chronic Renal Disease; Dialysis Peritoneal Status (HCC); Encounter For Other Preprocedural Examination Discharge Disposition: Home or Self Care Social History Tobacco Use Types Packs/Day Years [...] family, friends, or neighbors? Once a week 05/04/20 23 How often do you get togethe r with friends or relatives? Once a week 09/11/2022 How often do you attend chur ch or hoahaoism services? 1 to 4 times per year 09/11/2022 Do you belong to any clubs o r organizations such as anglican groups, unions, fraternal or athletic groups, or [...] Answer Date Recorded PHQ-2 Score 0 02/23/2023 [facility] - Occupational [...] Sex Assigned at Female 03/27/2017 3:30 PM K9 HANDLER Gender Identity Female 03/27/2017 3:30 PM K9 HANDLER Sexual Orientation Straight 03/27/2017 3: 30 PM K9 HANDLER documented as of this encounter Medications at Time of Discharge Medication Sig Dispensed Refills Start Date End Date acetaminophen (TYLENOL) 500 mg tablet Take 2 tablets (1,000 mg total) by mouth every 6 (six) hours as needed for pain. 0 04/16/[address] tablet Take 1 tablet by mouth daily. 0 BD Ultra-Fine Short Pen Needle 31 gauge x 5/16 needle Inject 4 Injection under the skin daily. 400 each 3 12/25/2022 blood-glucose meter,continuous (Dexcom G7 Health Concierge) misc Use as directed 3 (three) times a day. 1 each 07/29/2022 07/29/2023 blood-glucose meter,continuous [facility] Use to monitor blood glucose 1 each 0 04/09/2021 blood-glucose sensor (Nutraspace G7 Sensor) device 1 Device as directed for 10 days. Apply to skin replace every 10 days 10 each 11 07/29/2022 09/05/2023 calcium acetate,phosphat bind, (PHOSLO) 667 mg (169 mg calcium) capsule TAKE 2 CAPSULES BY MOUTH THREE TIMES A DAY WITH MEALS AND 1 CAPSULE WITH SNACKS 120 capsule 1 04/06/2021 docosahexaenoic acid/epa (FISH OIL ORAL) Take 1 capsule by mouth daily. 0 folic acid/vit B complex and C (DIALYVITE ORAL) Take 1 tablet by mouth daily. 0 gentamicin (GARAMYCIN) 0.1 % ointment Apply 1 Application topically as directed. Apply to PD catheter site - uses when changes dressing 0 pravastatin (PRAVACHOL) 40 mg tablet TAKE 1 TABLET AT BEDTIME FOR CHOLESTEROL 90 tablet 3 01/01/2023 allopurinoL (ZYLOPRIM) 100 mg tablet TAKE 1 TABLET DAILY 90 tablet 3 04/08/2022 05/19/2023 amLODIPine (NORVASC) 5 mg tablet Take 1 tablet (5 mg total) by mouth daily. 90 tablet 3 04/07/2023 05/19/2023 insulin glargine (Basaglar KwikPen U-100 Insulin) 100 unit/mL (3 mL) injection Inject 10 Units under the skin at bedtime. 15 mL 3 03/10/2023 04/28/2023 oxyCODONE (ROXICODONE) 5 mg immediate release tabletIndications:Ac annabel Pain Take 1 tablet (5 mg total) by mouth every 4 (four) hours as needed for pain Indication: Acute Pain. 3 tablet 0 04/16/2023 05/19/2023 pramipexole (MIRAPEX) 0.125 mg tablet Take 1 tablet (0.125 mg total) by mouth at bedtime. 90 tablet 3 03/03/2023 05/19/2023 sertraline (ZOLOFT) 25 mg tablet Take 1 tablet (25 mg total) by mouth daily. 90 tablet 3 03/03/2023 05/19/2023 documented as of this encounter Plan of Treatment Upcoming Encounters Date Type Department Care Team (Latest Contact Info) Description 07/09/2023 8:20 AM K9 HANDLER Appointment Department of Laboratory Medicine in [address] [phone] Allyn Alfredo M.D. [address] [place] [phone] 07/09/2023 9:15 AM K9 HANDLER Office Visit Department of Family Medicine, [facility], in [address] [phone] Allyn Alfredo M.D. [address] [place] [phone] 07/16/2023 12:06 PM K9 HANDLER Hospital Encounter Post Anesthesia Care Unit in [address] [phone] Cristhian Grant M.B., Ch.B., Ph.D. [address] [place] [phone] 07/16/2023 12:06 PM K9 HANDLER - 07/16/2023 3:35 PM K9 HANDLER Surgery RST ROMB MAIN OR [facility] [place] [phone] Cristhian Grant M.B., Ch.B., Ph.D. [address] [place] [phone] CREATION FISTULA RADIOCEPHALIC ARTERIOVENOUS 07/20/2023 11:00 AM CDT Office Visit Department of Orthopedic Surgery in [address] [phone] Cindy [place] D.PLeidaMLeida [address] [place] [phone] Discharge Disposition: Home or Self Care 08/25/2023 3:15 PM CDT Telemedicine Department of Sleep Medicine in [place], [place] [address], [place] [address] Emilee Emanuel APRN, C.N.P., D.N.P., M.S.N. [address] [place] [address] Scheduled Procedures Name Priority Associated Diagnoses Date/Ti me CREATION FISTULA RADIOCEPHALIC ARTERIOVENOUS Chronic Kidney Disease Stage 5 Glomerular 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) 07/16/2023 12:06 PM K9 HANDLER CREATION FISTULA BRACHIOCEPHALIC ARTERIOVENOUS Chronic Kidney Disease Stage 5 Glomerular 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) 07/16/2023 12:06 PM K9 HANDLER documented as of this encounter Procedures Procedure Name Priority Date/Time Associated Diagnosis Comments US UPPER EXTREMITY BILATERAL DIALYSIS MAPPING RAD - Routine (most inpatients and all outpatients) 04/14/2023 11:58 AM K9 HANDLER Chronic Kidney Disease Stage 5 Glomerular 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) Diabetes Mellitus Type 2 With Diabetic Nephropathy (HCC) Hyperparathyroidism Renal Secondary (HCC) Anemia Of Chronic Renal Disease Dialysis Peritoneal Status (HCC) Encounter For Other Preprocedural Examination documented in this encounter Results * US Upper Extremity Bilateral Dialysis Mapping (04/14/2023 11:58 AM K9 HANDLER) Anatomical Region Laterality Modality Upper Extremity, Ultrasound RST LOS, Ultrasound ARZ LOS, Ultrasound FLA LOS, Procedural Bilateral Ultrasound 04/14/2023 12:1 6 PM K9 HANDLER Impressions 04/14/2023 12:22 PM K9 HANDLER 1. Patent central veins 2. 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 3. Superficial vein diameters as detailed below Narrative 04/14/2023 12:22 PM K9 HANDLER EXAM: US UPPER EXTREMITY BILATERAL DIALYSIS MAPPING [...] vein diameters as detailed below Wilfrid Lincoln Jr. D.OLeida JOSHI documented in this encounter Visit Diagnoses Diagnosis Chronic Kidney Disease Stage 5 Glomerular 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) Diabetes Mellitus Type 2 With Diabetic Nephropathy (HCC) Hyperparathyroidism Renal Secondary (HCC) Anemia Of Chronic Renal Disease Dialysis Peritoneal Status (HCC) Encounter For Other Preprocedural Examination Chronic Kidney Disease Stage 5 Glomerular 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)- Primary Chronic Kidney Disease Stage 5 Glomerular 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) documented in this encounter Additional Health Concerns Assessment Noted Time PHQ-9 Depression Total Score: 0 02/24/20 23 1:03 PM CDT documented as of this encounter Care Teams Foot Caster Relationship Specialty Start Date End Date Allyn Alfredo M.D. NPBoston: [phone] [address] [phone] PCP - General Family Medicine 04/05/21 documented as of this encounter
--- OUTSIDE RECORDS SUMMARY | 2023-06-24 18:11 | XMS_ITS | Encounter Summary ---
Author Name Unknown Organization [facility] Address [address] [place] [address] Care Team Providers Care Brick Kiln Burner Name Role Phone Allyn Alfredo M.D. Primary Care Pro vider Reason for Visit * Outpatient (Routine) - Closed Specialty Diagnoses / Procedures Referred By Esther zamorano Referred To Contact General Surgery Diagnoses Chronic Kidney Disease Stage 5 Glomerular 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) Diabetes Mellitus Type 2 With Diabetic Nephropathy (HCC) Hyperparathyroidism Renal Secondary (HCC) Anemia Of Chronic Renal Disease Dialysis Peritoneal Status (HCC) Wilfrid Lincoln Jr., D.O. [address] [place] [address] [place] [facility] Referral ID Status Reason Start Date Expiration Date V isits Requested Visits Authorized [id number] Closed Specialty Services Required 04/07/2023 04/06/2024 1 1 Encounter Details Date Type Department Care Team (Latest Contact Info) Description 04/14/2023 2:30 PM LUMBER INSPECTOR Comprehensive Visit Division of Pediatric Surgery in [place], [place] [address] [place] [phone] Christine Warren Jr. MRozina. [address] [place] [phone] Chronic Kidney Disease Stage 5 Glomerular 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); Diabetes Mellitus Type 2 With Diabetic Nephropathy (HCC); Hyperparathyroidism Renal Secondary (HCC); Anemia Of Chronic Renal Disease; Dialysis Peritoneal Status (HCC) Social History Tobacco Use Types Packs/Day [...] any clubs o r organizations such as caodaism groups, unions, fraternal or athletic groups, or [...] Answer Date Recorded PHQ-2 Score 0 02/23/2023 [facility]ational Stress Questionnaire Answer Date [...] place to sleep or slept in a skilled nursing (including now)? No 09/11/2022 Depression Answer Date [...] Sex Assigned at Female 03/27/2017 3:30 PM LUMBER INSPECTOR Gender Identity Female 03/27/2017 3:30 PM LUMBER INSPECTOR Sexual Orientation Straight 03/27/2017 3: 30 PM LUMBER INSPECTOR documented as of this encounter Consult Notes * Christine Warren Jr., M.D. - 04/14/2023 2:30 PM CST SUBJECTIVE CHIEF COMPLAINT/REASON FOR VISIT Concetta Medina is a 77 y.o. female who presents for evaluation of removal of peritoneal dialysis catheter. She was referred by Wilfrid Lincoln Jr., D.O.. HISTORY OF PRESENT ILLNESS Ms. Medina is known to me for insertion of a peritoneal dialysis catheter in 2019. It has slowly lostfunction in regards to adequate dialysis and she is now on hemodialysis. She would like to have herperitoneal dialysis catheter removed that is no longer functional. She is taking a baby aspirin. She is changed her dialysis scheduled to Thursday and Thursday this week. She will then returned to her usual Thursday, Thursday, routine Past Surgical History: Procedure Laterality Date EXTRACTION CATARACT WITH INSERTION INTRAOCULAR LENS Right 10/26/2017 Procedure: EXTRACTION CATARACT WITH INSERTION INTRAOCULAR LENS, right eye; Surgeon: Lalo Carroll M.D.; Location: [facility] OR EXTRACTION CATARACT WITH INSERTION INTRAOCULAR LENS Left 11/09/2017 Procedure: EXTRACTION CATARACT WITH INSERTION INTRAOCULAR LENS, left eye; Surgeon: Ayleen Carroll M.D.; Location: [facility] OR HYSTERECTOMY 1988 also removed ovaries LAPAROSCOPIC INSERTION DIALYSIS CATHETER PERITONEAL N/A 03/16/2020 Procedure: LAPAROSCOPIC INSERTION DIALYSIS CATHETER PERITONEAL., Omentopexy; Surgeon: Christine Warren Jr., M.D.; Location: [facility] OR TONSILLECTOMY N/A 1951 Tonsillectomy OBJECTIVE PHYSICAL EXAM General: no acute distress, no apparent pain Eyes: no icterus Neck: supple, no lymphadenopathy Abdomen: soft, non-tender, dialysis catheter in the right side of the abdomen Extremities: capillary refill less than 2 seconds, no cyanosis, no edema Skin: pink, warm, dry, no rashes Wt Readings from Last 1 Encounters: 04/08/23 85.5 kg Temp Readings from Last 1 Encounters: 04/08/23 37.2 ??C (Oral) BP Readings from Last 1 Encounters: 04/08/23 151/58 Pulse Readings from Last 1 Encounters: 04/08/23 73 Diagnostics Imaging: Not applicable ASSESSMENT / PLAN #1 Chronic Kidney Disease Stage 5 Glomerular 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) #2 Diabetes Mellitus Type 2 With Diabetic Nephropathy (HCC) #3 Hyperparathyroidism Renal Secondary (HCC) #4 Anemia Of Chronic Renal Disease #5 [facility] Concetta Medina is a 77 y.o. female presenting with nonfunctional peritoneal dialysis catheter. We will remove this on . This is usually done with light sedation and local anesthetic. She wouldlike to proceed. No apparent learning barriers were identified; learning preferences include listening. Explained diagnosis and treatment plan; patient and/or parents expressed understanding of the content. ER INSPECTOR documented in this encounter Plan of Treatment Upcoming Encounters Date Type Department Care Team (Latest Contact Info) Description 07/09/2023 8:20 AM LUMBER INSPECTOR Appointment Department of Laboratory Medicine in [address] [phone] Allyn Alfredo M.D. [address] [place] [phone] 07/09/2023 9:15 AM LUMBER INSPECTOR Office Visit Department of Family Medicine, [facility], in [address] [phone] Allyn Alfredo M.D. [address] [place] [phone] 07/16/2023 12:06 PM LUMBER INSPECTOR Hospital Encounter Post Anesthesia Care Unit in [place], [place] [address] [place] [phone] Cristhian Grant M.B., Ch.B., Ph.D. [address] [place] [phone] 07/16/2023 12:06 PM LUMBER INSPECTOR - 07/16/2023 3:35 PM LUMBER INSPECTOR Surgery RST ROMB MAIN OR [address] [place] [phone] Cristhian Grant M.B., Ch.B., Ph.D. [address] [place] [phone] CREATION FISTULA RADIOCEPHALIC ARTERIOVENOUS 07/20/2023 11:00 AM CDT Office Visit Department of Orthopedic Surgery in [address] [phone] Cindy [place] D.PLeidaMLeida [address] [place] [phone] Discharge Disposition: Home or Self Care 08/25/2023 3:15 PM CDT Telemedicine Department of Sleep Medicine in [place], [place] [address] [place] [phone] Emilee Emanuel APRN, C.N.P., D.N.P., M.S.N. [address], [place] [phone] Scheduled Procedures Name Priority Associated Diagnoses Date/Ti me CREATION FISTULA RADIOCEPHALIC ARTERIOVENOUS Chronic Kidney Disease Stage 5 Glomerular 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) 07/16/2023 12:06 PM LUMBER INSPECTOR CREATION FISTULA BRACHIOCEPHALIC ARTERIOVENOUS Chronic Kidney Disease Stage 5 Glomerular 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) 07/16/2023 12:06 PM LUMBER INSPECTOR documented as of this encounter Visit Diagnoses Diagnosis Chronic Kidney Disease Stage 5 Glomerular 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) Diabetes Mellitus Type 2 With Diabetic Nephropathy (HCC) Hyperparathyroidism Renal Secondary (HCC) Anemia Of Chronic Renal Disease Dialysis Peritoneal Status (HCC) Chronic Kidney Disease Stage 5 Glomerular 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)- Primary Chronic Kidney Disease Stage 5 Glomerular 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) documented in this encounter Additional Health Concerns Assessment Noted Time PHQ-9 Depression Total Score: 0 02/24/20 23 1:03 PM CDT documented as of this encounter Care Teams Brick Kiln Burner Relationship Specialty Start Date End Date [place] Allyn Ryan M.D. [address] [phone] PCP - General Family Medicine 04/05/21 documented as of this encounter
--- OUTSIDE RECORDS SUMMARY | 2023-06-24 18:11 | XMS_ITS | Encounter Summary ---
Author Name Unknown Organization [facility] Address [address] [place] [address] Care Team Providers Care Drawing Tender Name Role Phone Allyn Alfredo M.D. Primary Care Pro vider Encounter Details Date Type Department Care Team (Late st Contact Info) Description 04/16/2023 10:47 AM INFECTION PREVENTION SPECIALIST - 04/16/2023 12:03 PM INFECTION PREVENTION SPECIALIST Surgery [facility] MAIN OR [address] [place] [phone] Christine Warren Jr., M.D. [address] [place] [phone] REMOVAL PERITONEAL DIALYSIS CATHETER. Social History Tobacco Use Types Packs/Day Years [...] often do you attend chur ch or yarsani services? 1 to 4 times per year 09/11/2022 Do you belong to any clubs o r organizations such as sabianist groups, unions, fraContin[facility] Alliance or athletic groups, or school groups? No [...] Answer Date Recorded PHQ-2 Score 0 02/23/2023 [facility] - Occupational Stress Questionnaire Answer [...] place to sleep or slept in a custodial (including now)? No 09/11/2022 Depression Answer Date [...] Sex Assigned at Female 03/27/2017 3:30 PM INFECTION PREVENTION SPECIALIST Gender Identity Female 03/27/2017 3:30 PM INFECTION PREVENTION SPECIALIST Sexual Orientation Straight 03/27/2017 3: 30 PM INFECTION PREVENTION SPECIALIST documented as of this encounter Last Filed Vital Signs Vital Sign Reading Time Taken Comments Blood Pressure 139/58 04/16/2023 9:25 AM INFECTION PREVENTION SPECIALIST Pulse 81 04/16/2023 9:25 AM INFECTION PREVENTION SPECIALIST Temperature 36.9 ??C (98.4 ??F) 04/16/2023 9:25 AM CS T Respiratory Rate 16 04/16/2023 9:25 AM INFECTION PREVENTION SPECIALIST Oxygen Saturation 95% 04/16/2023 9:25 AM INFECTION PREVENTION SPECIALIST Inhaled Oxygen Concentration - - Weight - - Height - - Body Mass Index - - documented in this encounter Discharge Instructions * Attachments The following attachments cannot be sent through Care Everywhere. * Instructions After Sedation or Anesthesia for Adults (Venezuelan) documented in this encounter Medications at Time of Discharge [...] each 3 12/25/2022 blood-glucose meter,continuous (Dexcom G7 Vehicle Modification Technician) misc Use as directed 3 (three) times a day. 1 each 11 07/29/2022 07/29/2023 blood-glucose meter,continuous misc Use to monitor blood glucose 1 each 0 04/09/2021 blood-glucose sensor (Dexcom G7 Sensor) device 1 [...] 03/03/2023 05/19/2023 documented as of this encounter OR Notes * Op Note - Christine Warren Jr., M.D. - 04/16/2023 12:15 PM CST Pre-op Diagnosis Dialysis Peritoneal Status (HCC) Post-op Diagnosis Dialysis Peritoneal Status (HCC) A first cook actively participated and was necessary for one or more of the following: opening, exposure and visualization during the case, maintaining hemostasis, wound closure resulting in itssafe and expeditious completion. Findings As expected. Complications None Operative Note Narrative Following monitored anesthesia, the area was anesthetized using 2% lidocaine and 0.5% bupivacaine with epinephrine. Once anesthesia was reached, the previous incision was reopened and we dissected down to the catheter using electrocautery. The subcutaneous cuff was excised using electrocautery and the external portion of the catheter was removed. We then dissected the muscular cuff using electrocautery. Additional local anesthetic was used in this area. The cuff and the remainder of the intraperitoneal portion of the catheter was removed without difficulty. Hemostasis was obtained. Fascial opening was closed using 2-0 Vicryl. The skin was closed in layers. Sterile dressings were applied. The patient was taken to the postanesthesia care unit stable condition. Carolann Weaver Jr.D. CTION PREVENTION SPECIALIST documented in this encounter Plan of Treatment Upcoming Encounters Date Type Department Care Team (Latest Contact Info) Description 07/09/2023 8:20 AM INFECTION PREVENTION SPECIALIST Appointment Department of Laboratory Medicine in [address] [phone] Allyn Alfredo M.D. [address] [place] [phone] 07/09/2023 9:15 AM INFECTION PREVENTION SPECIALIST Office Visit Department of Family Medicine, [facility], in [address] [phone] Allyn Alfredo M.D. [address] [place] [phone] 07/16/2023 12:06 PM INFECTION PREVENTION SPECIALIST Hospital Encounter Post Anesthesia Care Unit in [address] [phone] Cristhian Grant M.B., Ch.B., Ph.D. [address] [place] [phone] 07/16/2023 12:06 PM INFECTION PREVENTION SPECIALIST - 07/16/2023 3:35 PM INFECTION PREVENTION SPECIALIST Surgery [facility] MAIN OR [address] [place] [phone] Cristhian Grant M.B., Ch.B., Ph.D. [address] [place] [phone] CREATION FISTULA RADIOCEPHALIC ARTERIOVENOUS 07/20/2023 11:00 AM CDT Office Visit Department of Orthopedic Surgery in [address] [phone] Cindy Walker D.P.M. [address] [place] [phone] Discharge Disposition: Home or Self Care 08/25/2023 3:15 PM CDT Telemedicine Department of Sleep Medicine in [place], [place] [address] [place] [phone] Emilee Emanuel APRN, C.N.P., D.N.P., M.S.N. [address] [place] [phone] Scheduled Procedures Name Priority Associated Diagnoses Date/Ti me CREATION FISTULA RADIOCEPHALIC ARTERIOVENOUS Chronic Kidney Disease Stage 5 Glomerular 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) 07/16/2023 12:06 PM INFECTION PREVENTION SPECIALIST CREATION FISTULA BRACHIOCEPHALIC ARTERIOVENOUS Chronic Kidney Disease Stage 5 Glomerular 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) 07/16/2023 12:06 PM INFECTION PREVENTION SPECIALIST documented as of this encounter Procedures Procedure Name Priority Date/Time Associated Diagnosis Comments GLUCOSE POCT, B Routine 04/16/2023 1:02 PM INFECTION PREVENTION SPECIALIST GLUCOSE POCT, B Routine 04/16/2023 12:22 PM INFECTION PREVENTION SPECIALIST REMOVAL PERITONEAL DIALYSIS CATHETER 04/16/2023 11:37 AM INFECTION PREVENTION SPECIALIST Dialysis Peritoneal Status (HCC) Case Notes NUTRITION TECH 855, tpu 9 GLUCOSE POCT, B Routine 04/16/2023 11:27 AM INFECTION PREVENTION SPECIALIST documented in this encounter Results * Glucose, POCT (04/16/2023 1:02 PM INFECTION PREVENTION SPECIALIST) Glucose, POCT, B 120 70 - 140 mg/dL 04/17/2023 5:56 AM INFECTION PREVENTION SPECIALIST PCLX Site Capillary 04/17/2023 5:56 AM INFECTION PREVENTION SPECIALIST PCLX Blood 04/16/2023 1:02 PM INFECTION PREVENTION SPECIALIST 04/17/2023 5:57 AM INFECTION PREVENTION SPECIALIST Unknown Provider LAB POCT ORDERABLES- MANUAL Performing Organization Address City/[facility]/ZIP Co de Phone Number POC [facility] [address] [place] [address], [facility] PCLX [facility] [address] [place] [address] * Glucose, POCT (04/16/2023 12:22 PM INFECTION PREVENTION SPECIALIST) Glucose, POCT, B 105 70 - 140 mg/dL 04/16/2023 12:31 PM INFECTION PREVENTION SPECIALIST PCSM Site Capillary 04/16/2023 12:31 PM INFECTION PREVENTION SPECIALIST PCSM Blood 04/16/2023 12:2 2 PM INFECTION PREVENTION SPECIALIST 04/16/2023 12:31 PM INFECTION PREVENTION SPECIALIST Unknown Provider LAB POCT ORDERABLES- MANUAL Performing Organization Address [facility] Co de Phone Number POC [facility] [address] [place] [address], [facility] PCSM [facility] POC [address] [place] [phone] * Glucose, POCT (04/16/2023 11:27 AM INFECTION PREVENTION SPECIALIST) Glucose, POCT, B 123 70 - 140 mg/dL 04/16/2023 1:01 PM INFECTION PREVENTION SPECIALIST PCLX Site Capillary 04/16/2023 1:01 PM INFECTION PREVENTION SPECIALIST PCLX Blood 04/16/2023 11:2 7 AM INFECTION PREVENTION SPECIALIST 04/16/2023 1:01 PM INFECTION PREVENTION SPECIALIST Unknown Provider LAB POCT ORDERABLES- MANUAL Performing Organization Address City/[facility]/ZIP Co de Phone Number POC [facility] 200 [place] [address], [place] PCLX [facility] POC [address] [place] [address] documented in this encounter Visit Diagnoses Diagnosis Chronic Kidney Disease Stage 5 Glomerular 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)- Primary Dialysis Peritoneal Status (HCC) Chronic Kidney Disease Stage 5 Glomerular 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) documented in this encounter Administered Medications Inactive Administered Medications - up to 3 most recent administrations Medication Order MAR Action Action Date Dose Rate Site acetaminophen tablet 1,000 mg (TYLENOL) 1,000 mg, oral, Once, On Ashley 04/16/23 at 1400, For 1 dose, Pre-Op Given 04/16/2023 1:03 PM INFECTION PREVENTION SPECIALIST 1,000 mg BUPivacaine-EPINEPHrine (PF) 0.5 %-1:200,000 injection (MARCAINE w/EPI) As needed, Starting on Ashley 04/16/23 at 1211, Intra-Op Given 04/16/2023 12:11 PM INFECTION PREVENTION SPECIALIST 17 mL Abdominal Tissue documented in this encounter Active and Recently Administered Medications Times are shown in INFECTION PREVENTION SPECIALIST. Scheduled Medication Order 04/14/2023 04/15/2023 04/16/2023 acetaminophen tablet 1,000 mg (TYLENOL) (COMPLETED) 1,000 mg, oral, Once, On Ashley 04/16/23 at 1400, For 1 dose, Pre-Op 1303 (Given - Provid er: Cindy Sifuentes R.N.) Continuous Medication Order 04/14/2023 04/15/2023 04/16/2023 NaCl 0.9% infusion 20 mL/hr, intravenous, Continuous, Starting on Ashley 04/16/23 at 1300, PACU & Post-Op 1300 (Due) PRN Medication Order 04/14/2023 04/15/2023 04/16/2023 BUPivacaine-EPINEPHrine (PF) 0.5 %-1:200,000 injection (MARCAINE w/EPI) (CANCELED) As needed, Starting on Ashley 04/16/23 at 1211, Intra-Op 1211 (Given - Provid er: Christine Warren Jr., M.D. - Comment: right incision [id number] 2%Lidocaine mixed together) documented in this encounter Additional Health Concerns Assessment Noted Time PHQ-9 Depression Total Score: 0 02/24/20 23 1:03 PM CDT documented as of this encounter Care Teams Drawing Tender Relationship Specialty Start Date End Date Allyn Alfredo M.D. [address] [phone] PCP - General Family Medicine 04/05/21 documented as of this encounter
--- OUTSIDE RECORDS SUMMARY | 2023-06-24 18:11 | XMS_ITS | Encounter Summary ---
Author Name Unknown Organization [facility] Address [address] [place] [phone] Care Team Providers Care Division Chief Name Role Phone Allyn Alfredo M.D. 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 200 [place] [address] [facility] Referral ID Status Reason Start Date Expiration Date Visits Re quested Visits Authorized [id number] Closed 04/07/2023 04/06/2024 1 1 Encounter Details Date Type Department Care Team (Latest Contact Info) Description 04/14/2023 1:00 PM HEADING PINNER Comprehensive Visit Division of Vascular and Endovascular Surgery in [place], [place] [address] [place] [phone] Wilfrid Lincoln Jr., D.O. [address] [place] [phone] Cristhian Grant M.B., Ch.B., Ph.D. [address] [place] [phone] Chronic Kidney Disease Stage 5 Glomerular 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); Diabetes Mellitus Type 2 With Diabetic Nephropathy (HCC); Hyperparathyroidis m Renal Secondary (HCC); Anemia Of Chronic Renal [...] often do you attend chur ch or taoism services? 1 to 4 times per year [...] Answer Date Recorded PHQ-2 Score 0 02/23/2023 [facility] - Occupational [...] Sex Assigned at Female 03/27/2017 3:30 PM HEADING PINNER Gender Identity Female 03/27/2017 3:30 PM HEADING PINNER Sexual Orientation Straight 03/27/2017 3: 30 PM HEADING PINNER documented as of this encounter Consult Notes * Cristhian Grant M.B., Ch.B., Ph.D. - 04/14/2023 1:00 PM CST Concetta Medina : 1945 Visit Date: 05/18/23 REASON FOR CONSULT: AV fistula creation for renal replacement therapy access HISTORY: This lady has been undergoing peritoneal dialysis but this has been discontinued and her catheter removed. 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 Ms. Medina has a current medication list which includes the following long-term medication(s): acetaminophen, allopurinol, amlodipine, calcium acetate(phosphat bind), folic acid/vit b complex and c, insulin glargine, pramipexole, pravastatin, and sertraline. 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 Radiculopathy Lumbar Anemia Of Chronic Renal Disease 02/05/2018 Cataract Senile Nuclear Sclerosis Right 10/01/2017 Hypertension And Chronic Kidney Disease Stage 5 ([facility]) 08/27/2017 Smoking Tobacco Use Personal History 06/22/2015 Chronic Kidney Disease Stage 5 Glomerular 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) 06/04/2015 Diabetes Mellitus Type 2 With Diabetic Nephropathy ([facility]) 04/04/2015 Anemia Of Chronic Renal Failure 09/19/2014 Carpal Tunnel Syndrome 10/10/2011 Restless Leg Syndrome 08/22/2011 Periodic Limb Movement Disorder 08/15/2011 Mononeuritis 07/07/2011 Diabetes Mellitus Type 2 With Diabetic Neuropathy Hyperglycemic ([facility]) 03/14/2011 Apnea Sleep Obstructive 03/14/2011 Meniere's Disease 02/24/2011 Hyperlipidemia 02/24/2011 Cancer Breast Personal History 06/18/2010 Ms. Medina is allergic to atorvastatin, clonidine, oxycodone, and penicillins. PHYSICAL EXAM: This lady has had previous superficial cannula in her right cephalic vein at the wrist. I repeated her duplex myself with ultrasound and a tourniquet and I think that once that vein is healed it may be adequate for a right radiocephalic fistula. Feeling that there was an excellent cephalic vein in the antecubital fossa which could be used to fashion a brachiocephalic fistula. PLAN: With a long discussion about fistula creation in the risks of failing to mature, bleeding and infection. My plan is to let this lady's right cephalic vein he will to reassess her in the day of surgery and if it is suitable then fashion a radiocephalic fistula on the right but failing that we have the option of a brachiocephalic fistula also on the right-hand side. Darshan Garcia., Ch.B., Ph.D. ING PINNER documented in this encounter Plan of Treatment Upcoming Encounters Date Type Department Care Team (Latest Contact Info) Description 07/09/2023 8:20 AM HEADING PINNER Appointment Department of Laboratory Medicine in [address] [phone] Allyn Alfredo M.D. [address] [place] [phone] 07/09/2023 9:15 AM HEADING PINNER Office Visit Department of Family Medicine, [facility], in [address] [phone] Allyn Alfredo M.D. [address] [place] [phone] 07/16/2023 12:06 PM HEADING PINNER Hospital Encounter Post Anesthesia Care Unit in [address] [phone] Cristhian Grant M.B., Ch.B., Ph.D. [address] [place] [phone] 07/16/2023 12:06 PM HEADING PINNER - 07/16/2023 3:35 PM HEADING PINNER Surgery [facility]IN OR [facility] [address] [place] [phone] Cristhian Grant M.B., Ch.B., Ph.D. [address] [place] [phone] CREATION FISTULA RADIOCEPHALIC ARTERIOVENOUS 07/20/2023 11:00 AM CDT Office Visit Department of Orthopedic Surgery in [address] [phone] Cindy Walker D.P.M. [address] [place] [phone] Discharge Disposition: Home or Self Care 08/25/2023 3:15 PM CDT Telemedicine Department of Sleep Medicine in [place], [place] [address] [place] [phone] Emilee Emanuel APRN, C.N.P., D.N.P., M.S.N. [address] [place] [phone] Scheduled Procedures Name Priority Associated Diagnoses Date/Ti me CREATION FISTULA RADIOCEPHALIC ARTERIOVENOUS Chronic Kidney Disease Stage 5 Glomerular 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) 07/16/2023 12:06 PM HEADING PINNER CREATION FISTULA BRACHIOCEPHALIC ARTERIOVENOUS Chronic Kidney Disease Stage 5 Glomerular 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) 07/16/2023 12:06 PM HEADING PINNER documented as of this encounter Visit Diagnoses [...] documented as of this encounter Care Teams Division Chief Relationship Specialty Start Date End Date Allyn Alfredo M.D. [address] [phone] PCP - General Family Medicine 04/05/21 documented as of this encounter
--- OUTSIDE RECORDS SUMMARY | 2023-06-24 18:11 | XMS_ITS | Encounter Summary ---
Author Name Unknown Organization [facility] Address [address] [place] [address] Care Team Providers Care Circuit Design Engineer Name Role Phone Allyn Alfredo M.D. Primary Care Pro vider Encounter Details Date Type Department Care Team (Late st Contact Info) Description 04/08/2023 Orders Only Department of Radiology, [facility], in [place], [place] [address] [place] [phone] Lydia Sommers P.A.-C., M.S. [address] [place] [phone] Social History Tobacco Use Types Packs/Day Years [...] How often do you attend chur or anabaptism services? 1 to 4 times per year 09/11/2022 Do you belong to any clubs o r organizations such as anabaptist groups, unions, fraternal or athletic groups, or [...] Answer Date Recorded PHQ-2 Score 0 02/23/2023 [facility] - Occupational [...] Sex Assigned at Female 03/27/2017 3:30 PM THERAPIST RRT Gender Identity Female 03/27/2017 3:30 PM THERAPIST RRT Sexual Orientation Straight 03/27/2017 3: 30 PM THERAPIST RRT documented as of this encounter Plan of Treatment Upcoming Encounters Date Type Department Care Team (Latest Contact Info) Description 07/09/2023 8:20 AM THERAPIST RRT Appointment Department of Laboratory Medicine in [address] [phone] Allyn Alfredo M.D. [address] [place] [phone] 07/09/2023 9:15 AM THERAPIST RRT Office Visit Department of Family Medicine, [facility], in [address] [phone] Allyn Alfredo M.D. [address] [place] [phone] 07/16/2023 12:06 PM THERAPIST RRT Hospital Encounter Post Anesthesia Care Unit in [address] [phone] Cristhian Grant M.B., Ch.B., Ph.D. [address] [place] [phone] 07/16/2023 12:06 PM THERAPIST RRT - 07/16/2023 3:35 PM THERAPIST RRT Surgery [facility] MAIN OR [address] [place] [phone] Cristhian Grant M.B., Ch.B., Ph.D. [address] [place] [phone] CREATION FISTULA RADIOCEPHALIC ARTERIOVENOUS 07/20/2023 11:00 AM CDT Office Visit Department of Orthopedic Surgery in [address] [phone] Cindy Walker D.PLeidaMLeida [address] [place] [phone] Discharge Disposition: Home or Self Care 08/25/2023 3:15 PM CDT Telemedicine Department of Sleep Medicine in [place], [place] [address] [place] [phone] Emilee Emanuel APRN, C.N.P., D.N.P., M.S.N. [address] [place] [phone] Scheduled Procedures Name Priority Associated Diagnoses Date/Ti me CREATION FISTULA RADIOCEPHALIC ARTERIOVENOUS Chronic Kidney Disease Stage 5 Glomerular 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) 07/16/2023 12:06 PM THERAPIST RRT CREATION FISTULA BRACHIOCEPHALIC ARTERIOVENOUS Chronic Kidney Disease Stage 5 Glomerular 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) 07/16/2023 12:06 PM THERAPIST RRT documented as of this encounter Visit Diagnoses Not on filedocumented in this encounter Additional Health Concerns Assessment Noted Time PHQ-9 Depression Total Score: 0 02/24/20 23 1:03 PM CDT documented as of this encounter Care Teams Circuit Design Engineer Relationship Specialty Start Date End Date Allyn Alfredo M.D. [address] [place] [phone] PCP - General Family Medicine 04/05/21 documented as of this encounter
--- OUTSIDE RECORDS SUMMARY | 2023-06-24 18:11 | XMS_ITS | Encounter Summary ---
Author Name Unknown Organization [facility] Address [address] [place] [address] Care Team Providers Care Supervisor Cigar Processing Name Role Phone Allyn Alfredo M.D. Primary Care Pro vider Encounter Details Date Type Department Care Team (Latest Contact Info) Description 04/16/2023 8:51 AM KEYBOARDING TEACHER - 04/16/2023 1:48 PM KEYBOARDING TEACHER Hospital Encounter [facility] MAIN OR [address] [place] [phone] Christine Warren Jr., M.D. [address] [place] [address] Discharge Disposition: Home or Self Care Social [...] often do you attend chur ch or pentecostal services? 1 to 4 times [...] Date Recorded PHQ-2 Score 0 02/23/2023 [facility]ational Stress Questionnaire [...] place to sleep or slept in a fdc (including now)? No 09/11/2022 Depression Answer Date [...] Sex Assigned at Female 03/27/2017 3:30 PM KEYBOARDING TEACHER Gender Identity Female 03/27/2017 3:30 PM KEYBOARDING TEACHER Sexual Orientation Straight 03/27/2017 3: 30 PM KEYBOARDING TEACHER documented as of this encounter Last Filed Vital Signs Vital Sign Reading Time Taken Comments Blood Pressure 157/52 04/16/2023 1:15 PM KEYBOARDING TEACHER Pulse 79 04/16/2023 1:25 PM KEYBOARDING TEACHER Temperature 36.7 ??C (98.1 ??F) 04/16/2023 1:00 PM CS T Respiratory Rate 13 04/16/2023 1:25 PM KEYBOARDING TEACHER Oxygen Saturation 99% 04/16/2023 1:25 PM KEYBOARDING TEACHER Inhaled Oxygen Concentration - - Weight - - Height - - Body Mass Index - - documented in this encounter Discharge Instructions * Attachments The following attachments cannot be sent through Care Everywhere. * Instructions After Sedation or Anesthesia for Adults (Welsh) documented in this encounter Medications at Time [...] each 3 12/25/2022 blood-glucose meter,continuous (Dexcom G7 Truck Guard) misc Use as directed 3 (three) times [...] oxyCODONE (ROXICODONE) 5 mg immediate release tabletIndications:Ac [place] Pain Take 1 tablet (5 mg total) [...] Diagnosis Dialysis Peritoneal Status (HCC) A first aid officer actively participated and was necessary for one [...] to the postanesthesia care unit stable condition. Christine Warren Jr. M.D. OARDING TEACHER documented in this encounter Plan of Treatment Upcoming Encounters Date Type Department Care Team (Latest Contact Info) Description 07/09/2023 8:20 AM KEYBOARDING TEACHER Appointment Department of Laboratory Medicine in [address] [phone] Allyn Alfredo M.D. [address] [place] [phone] 07/09/2023 9:15 AM KEYBOARDING TEACHER Office Visit Department of Family Medicine, [facility], in [address] [phone] Allyn Alfredo M.D. [address] [place] [phone] 07/16/2023 12:06 PM KEYBOARDING TEACHER Hospital Encounter Post Anesthesia Care Unit in [address] [phone] Cristhian Grant M.B., Ch.B., Ph.D. [address] [place] [phone] 07/16/2023 12:06 PM KEYBOARDING TEACHER - 07/16/2023 3:35 PM KEYBOARDING TEACHER Surgery [facility] MAIN OR [address] [place] [phone] Cristhian Grant M.B., Ch.B., Ph.D. [address] [place] [phone] CREATION FISTULA RADIOCEPHALIC ARTERIOVENOUS 07/20/2023 11:00 AM CDT Office Visit Department of Orthopedic Surgery in [address] [place] [phone] Cindy Walker D.P.M. [address] [place] [phone] Discharge Disposition: Home or Self Care 08/25/2023 3:15 PM CDT Telemedicine Department of Sleep Medicine in [place], [place] [address] [place] [address] Emilee Emanuel APRN, C.N.P., D.N.P., M.S.N. [address] [place] [phone] Scheduled Procedures Name Priority Associated Diagnoses Date/Ti me CREATION FISTULA RADIOCEPHALIC ARTERIOVENOUS Chronic Kidney Disease Stage 5 Glomerular 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) 07/16/2023 12:06 PM KEYBOARDING TEACHER CREATION FISTULA BRACHIOCEPHALIC ARTERIOVENOUS Chronic Kidney Disease Stage 5 Glomerular 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) 07/16/2023 12:06 PM KEYBOARDING TEACHER documented as of this encounter Procedures Procedure Name Priority Date/Time Associated Diagnosis Comments GLUCOSE POCT, B Routine 04/16/2023 1:02 PM KEYBOARDING TEACHER GLUCOSE POCT, B Routine 04/16/2023 12:22 PM KEYBOARDING TEACHER REMOVAL PERITONEAL DIALYSIS CATHETER 04/16/2023 11:37 AM KEYBOARDING TEACHER Dialysis Peritoneal Status (HCC) Case Notes REVIEW MANAGER [id number], tpu 9 GLUCOSE POCT, B Routine 04/16/2023 11:27 AM KEYBOARDING TEACHER documented in this encounter Results * Glucose, POCT (04/16/2023 1:02 PM KEYBOARDING TEACHER) Glucose, POCT, B 120 70 - 140 mg/dL 04/17/2023 5:56 AM KEYBOARDING TEACHER PCLX Site Capillary 04/17/2023 5:56 AM KEYBOARDING TEACHER PCLX Blood 04/16/2023 1:02 PM KEYBOARDING TEACHER 04/17/2023 5:57 AM KEYBOARDING TEACHER Unknown Provider LAB POCT ORDERABLES- MANUAL Performing Organization Address City/[facility] Co de Phone Number POC [facility] [address] [place] [address], [place] PCLX [facility] [address] [place] [address] * Glucose, POCT (04/16/2023 12:22 PM KEYBOARDING TEACHER) Glucose, POCT, B 105 70 - 140 mg/dL 04/16/2023 12:31 PM KEYBOARDING TEACHER PCSM Site Capillary 04/16/2023 12:31 PM KEYBOARDING TEACHER PCSM Blood 04/16/2023 12:2 2 PM KEYBOARDING TEACHER 04/16/2023 12:31 PM KEYBOARDING TEACHER Unknown Provider LAB POCT ORDERABLES- MANUAL Performing Organization Address [facility] Co de Phone Number POC [facility] [address] [place] [address], [facility] PCSM [facility] [address] [place] [phone] * Glucose, POCT (04/16/2023 11:27 AM KEYBOARDING TEACHER) Glucose, POCT, B 123 70 - 140 mg/dL 04/16/2023 1:01 PM KEYBOARDING TEACHER PCLX Site Capillary 04/16/2023 1:01 PM KEYBOARDING TEACHER PCLX Blood 04/16/2023 11:2 7 AM KEYBOARDING TEACHER 04/16/2023 1:01 PM KEYBOARDING TEACHER Unknown Provider LAB POCT ORDERABLES- MANUAL Performing Organization Address City/[facility]/ZIP Co de Phone Number POC [facility] [address] [place] [address], [place] [facility] [address] [place] [address] documented in this encounter Visit Diagnoses Not on filedocumented in this encounter Administered Medications Inactive Administered Medications - up to 3 most recent administrations Medication Order MAR Action Action Date Dose Rate Site acetaminophen tablet 1,000 mg (TYLENOL) 1,000 mg, oral, Once, On Ashley 04/16/23 at 1400, For 1 dose, Pre-Op Given 04/16/2023 1:03 PM KEYBOARDING TEACHER 1,000 mg documented in this encounter Active and Recently Administered Medications Times are shown in KEYBOARDING TEACHER. Scheduled Medication Order 04/14/2023 04/15/2023 04/16/2023 acetaminophen [...] Warren Jr., M.D. - Comment: right incision [id number]%Lidocaine mixed together) documented in this encounter Additional Health Concerns Assessment Noted Time PHQ-9 Depression Total Score: 0 02/24/20 23 1:03 PM CDT documented as of this encounter Care Teams Supervisor Cigar Processing Relationship Specialty Start Date End Date Allyn Alfredo M.D. [address] [phone] PCP - General Family Medicine 04/05/21 documented as of this encounter
--- OUTSIDE RECORDS SUMMARY | 2023-06-24 18:11 | XMS_ITS | Encounter Summary ---
Author Name Unknown Organization [facility] Address [address] [place] [address] Care Team Providers Care Systems Support Officer Name Role Phone Allyn Alfredo M.D. Primary Care Pro vider Encounter Details Date Type Department Care Team (Late st Contact Info) Description 04/16/2023 11:52 AM TOPOGRAPHICAL SURVEYOR Anesthesia Event [facility] OR [address] [place] [phone] Livier Guerrero M.D., M.P.H. [address] [place] [phone] Anesthesia Record Procedure Summary Procedure Name Responsible Anesthesiologist Anesthesia Start Time Anesthesia Stop Time REMOVAL PERITONEAL DIALYSIS CATHETER. Livier Guerrero M.D., M.P.H. 04/16/23 1152 04/16/23 1249 Events Date Time Event Comment 04/16/2023 1152 An Start Machine/Equipme nt Checked Infection Precautions Followed Procedure/Site Verified NPO Status Verified Supine Standard ASA Monitors Applied 1204 Turnover to Proceduralist 1215 Proc Start 1236 Proc Fin 1242 Turnover to ANE Staff 1242 an stop data 1249 An End I completed my handoff to the receiving staff during which we 1. Identified the patient 2. Identified the responsible provider 3. Reviewed the pertinent medical history 4. Discussed the surgical course 5. Reviewed intra-op anesthesia management and issues during anesthesia 6. Set expectations for post-procedure period 7. Allowed opportunity for questions and acknowledgement of understanding. Meds Name Total lidocaine 2% (mg) injection 60 mg ondansetron PF 4 mg/2 mL injection 4 mg propofol 10 mg/mL injection 40 mg propofol 10 mg/mL infusion 162.45 mg NaCl 0.9 % free drip 50 mL * Agents No agents on file. * Blood No blood administrations on file. Lines, Drains, and Airways Type Details Placement Removal Wound 04/08/23; 1327; N; 04/08/23; Puncture; Chest; Right, Upper; Tunneled HemoDialysis Catheter Placement Access Site 04/08/23 1327 by Ishmael Crowder R.N. Hemodialysis Catheter Placement Date: 04/08/23; Placement Time: 133; Catheter Length (cm): 23 cm 04/08/23 1331 by Ishmael Crowder R.N. Wound 04/16/23; 1216; Incision; Abdomen; Right, Upper; (mastisol,steri strips) 04/16/23 1216 by Mikayla Duarte R.N. Scope Sites 03/16/20; 1307; Abdomen; 1; Left, Upper, Quadrant; 2; Right, Upper, Quadrant; 04/16/23; 1217 03/16/20 1307 by Mariposa Aceves R.N. 04/16/23 1217 by Mikayla Duarte R.N. Peritoneal Dialysis Catheter 03/16/20; 1319; Dr. Warren; (Coil); Right lower abdomen (Upper); 14 Fr.; Criteria for drain removal met; 04/16/23; 1217 03/16/20 1319 by Mariposa Aceves R.N. 04/16/23 1217 by Mikayla Duarte R.N. Peripheral IV Placement Date: 04/16/23; Placement Time: 115; Catheter Size: 24 G; Orientation: Left; Location: Hand; Removal Date: 04/16/23; Removal Time: 1334; Removal Reason: Per protocol 04/16/23 1155 by Edgardo Rea RLeidaNLeida 04/16/23 1335 by Cindy Sifuentes RLeidaNLeida documented in this encounter Social History Tobacco Use Types Packs/Day Years [...] often do you attend chur ch or amish services? 1 to 4 times per year 09/11/2022 Do you belong to any clubs o r organizations such as pentecostalism groups, unions, fraternal or athletic groups, or [...] Answer Date Recorded PHQ-2 Score 0 02/23/2023 [facility] - Occupational Stress Questionnaire Answer [...] place to sleep or slept in a mcfp (including now)? No 09/11/2022 Depression Answer Date [...] Sex Assigned at Female 03/27/2017 3:30 PM TOPOGRAPHICAL SURVEYOR Gender Identity Female 03/27/2017 3:30 PM TOPOGRAPHICAL SURVEYOR Sexual Orientation Straight 03/27/2017 3: 30 PM TOPOGRAPHICAL SURVEYOR documented as of this encounter OR Notes * Anesthesia Postprocedure Evaluation - Livier Guerrero M.D., M.P.H. - 04/16/2023 2:51 PM CST Patient: Concetta Medina Procedure Summary Date: 04/16/23 Room / Location: [address] 03 [facility] in [place], [place] Anesthesia Start: 1152 Anesthesia Stop: 1249 Procedure: REMOVAL PERITONEAL DIALYSIS CATHETER. Diagnosis: Dialysis Peritoneal Status (HCC) (Dialysis Peritoneal Status (HCC) [Z99.2].) Providers: Christine Warren Jr., M.D. Responsible Provider: Livier Guerrero M.D., M.P.H. Anesthesia Type: MAC ASA Status: 3 Anesthesia Type: MAC Last vitals Vitals Value Taken Time BP 157/52 04/16/23 1315 Temp 36.7 ??C 04/16/23 1300 Pulse 79 04/16/23 1325 Resp 13 04/16/23 1325 SpO2 99 % 04/16/23 1325 Please reference Vitals flowsheet for most recent vital signs. Anesthesia Post Evaluation Patient Disposition: dismissal Cardiovascular status: hemodynamics (HR & BP) acceptable Respiratory status: patent airway with spontaneous effort Temperature: normothermic Oxygen requirements: room air Level of consciousness: awake Pain score: pain adequately controlled and/or at baseline Post Op nausea/vomiting: none Hydration status: euvolemic GRAPHICAL SURVEYOR * Anesthesia Preprocedure Evaluation - Livier Guerrero M.D., M.P.H. - 04/16/2023 11:44 AM CST Preprocedure Anesthesia & H&P Assessment Procedure Summary Date/Time: 04/16/23 1047 Procedure: REMOVAL PERITONEAL DIALYSIS CATHETER. Diagnosis: Dialysis Peritoneal Status (HCC) [Z99.2] Pre-op diagnosis: Dialysis Peritoneal Status (HCC) [Z99.2]. Location: [place] [address] / [facility] in [place], [place] Providers: Christine Warren Jr., M.D. Pertinent components of the patient's history including current problem list, medical history, surgical history, family history, social history, medications and allergies were reviewed. Present illness and pre-op diagnosis were confirmed. The planned surgery / procedure was verified with the patient / legal guardian. 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) (+) Diabetes Mellitus Type 2 With Diabetic Neuropathy Hyperglycemic (HCC) ONC (+) Cancer Breast Personal History Other (+) Carpal Tunnel Syndrome (+) Loss Weight Abnormal (+) Restless Leg Syndrome OBJECTIVE PHYSICAL EXAMINATION Airway (HEENT) Mallampati: III TM Distance: >3 FB Neck ROM: Full Mouth Opening: >3 cm Cardiovascular Rhythm: Regular Cardiovascular Assessment: cardiovascular normal Functional Capacity: <4 METS Pulmonary Pulmonary Assessment: Clear General / Constitutional Constitutional Assessment: Obese Neurological Neurologic Assessment: alert ASSESSMENT / PLAN ANESTHESIA PLAN ASA: 3 Anesthesia Plan: MAC Patient seen and allergies reviewed, anesthesia plan and risks discussed directly with patient /legal guardian or through an k9 handler. The use of blood products not discussed Approval to Proceed: approved for anesthesia GRAPHICAL SURVEYOR documented in this encounter Plan of Treatment Upcoming Encounters Date Type Department Care Team (Latest Contact Info) Description 07/09/2023 8:20 AM TOPOGRAPHICAL SURVEYOR Appointment Department of Laboratory Medicine in [address] [phone] Allyn Alfredo M.D. [address] [place] [phone] 07/09/2023 9:15 AM TOPOGRAPHICAL SURVEYOR Office Visit Department of Family Medicine, [facility], in [address] [phone] Allyn Alfredo M.D. [address] [place] [phone] 07/16/2023 12:06 PM TOPOGRAPHICAL SURVEYOR Hospital Encounter Post Anesthesia Care Unit in [address] [phone] Cristhian Grant M.B., Ch.B., Ph.D. [address] [place] [phone] 07/16/2023 12:06 PM TOPOGRAPHICAL SURVEYOR - 07/16/2023 3:35 PM TOPOGRAPHICAL SURVEYOR Surgery [facility] MAIN OR [address] [place] [phone] Cristhian Grant M.B., Ch.B., Ph.D. [address] [place] [phone] CREATION FISTULA RADIOCEPHALIC ARTERIOVENOUS 07/20/2023 11:00 AM CDT Office Visit Department of Orthopedic Surgery in [address] [phone] Cindy Walker D.P.M. [address] [place] [phone] Discharge Disposition: Home or Self Care 08/25/2023 3:15 PM CDT Telemedicine Department of Sleep Medicine in [place], [place] [address] [place] [phone] Emilee Emanuel APRN, C.N.P., D.N.P., M.S.N. [address] [place] [phone] Scheduled Procedures Name Priority Associated Diagnoses Date/Ti me CREATION FISTULA RADIOCEPHALIC ARTERIOVENOUS Chronic Kidney Disease Stage 5 Glomerular 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) 07/16/2023 12:06 PM TOPOGRAPHICAL SURVEYOR CREATION FISTULA BRACHIOCEPHALIC ARTERIOVENOUS Chronic Kidney Disease Stage 5 Glomerular 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) 07/16/2023 12:06 PM TOPOGRAPHICAL SURVEYOR documented as of this encounter Visit Diagnoses Not on filedocumented in this encounter Administered Medications Inactive Administered Medications - up to 3 most recent administrations Medication Order MAR Action Action Date Dose Rate Site lidocaine (PF) (cardiac) injection intravenous, As needed, Starting on Ashley 04/16/23 at 1201, Anesthesia Intra-op Given 04/16/2023 12:01 PM TOPOGRAPHICAL SURVEYOR 60 mg NaCl 0.9% infusion intravenous, Continuous Infusion: Per Instructions PRN, Starting on Ashley 04/16/23 at 1159, Anesthesia Intra-op New Bag 04/16/2023 11:59 AM TOPOGRAPHICAL SURVEYOR ondansetron (PF) injection (ZOFRAN) intravenous, As needed, Starting on Ashley 04/16/23 at 1210, Anesthesia Intra-op Given 04/16/2023 12:10 PM TOPOGRAPHICAL SURVEYOR 4 mg propofol 10 mg/mL infusion (DIPRIVAN) intravenous, Continuous Infusion: Per Instructions PRN, Starting on Ashley 04/16/23 at 1201, Anesthesia Intra-op Rate/Dose Change 04/16/2023 12:15 PM TOPOGRAPHICAL SURVEYOR 60 mcg/kg/min 30.78 mL/hr New Bag 04/16/2023 12:01 PM TOPOGRAPHICAL SURVEYOR 50 mcg/kg/min 25.65 mL/ hr propofoL injection (DIPRIVAN) intravenous, As needed, Starting on Ashley 04/16/23 at 1203, Anesthesia Intra-op Given 04/16/2023 12:08 PM TOPOGRAPHICAL SURVEYOR 20 mg Given 04/16/2023 12:03 PM TOPOGRAPHICAL SURVEYOR 20 mg documented in this encounter Additional Health Concerns Assessment Noted Time PHQ-9 Depression Total Score: 0 02/24/20 23 1:03 PM CDT documented as of this encounter Care Teams Systems Support Officer Relationship Specialty Start Date End Date Allyn Alfredo M.D. [address] [phone] PCP - General Family Medicine 04/05/21 documented as of this encounter
--- OUTSIDE RECORDS SUMMARY | 2023-06-24 18:12 | XMS_ITS | Encounter Summary ---
Author Name Unknown Organization [facility] Address [address] [place] [address] Care Team Providers Care Profile Grinder Technician Name Role Phone Allyn Alfredo M.D. Primary Care Pro vider Encounter Details Date Type Department Care Team (Late st Contact Info) Description 04/07/2023 Documentation Division of Nephrology and Hypertension in [place], [place] [address] [place] [phone] Wilfrid Lincoln Jr., D.O. [address] [place] [phone] Social History Tobacco Use Types Packs/Day Years [...] How often do you attend chur or sikh services? 1 to 4 times per year 09/11/2022 Do you belong to any clubs o r organizations such as tenriism groups, unions, fraternal or athletic groups, or [...] Answer Date Recorded PHQ-2 Score 0 02/23/2023 [facility] [place] [facility] - Occupational Stress [...] place to sleep or slept in a prison (including now)? No 09/11/2022 Depression Answer Date [...] Assigned at Female 03/27/2017 3:30 PM SUPERVISOR DELIVERY [employer]MENT Gender Identity Female 03/27/2017 3:30 PM SUPERVISOR DELIVERY [employer]MENT Sexual Orientation Straight 03/27/2017 3: 30 PM SUPERVISOR DELIVERY DEPARTMENT documented as of this encounter Progress Notes * Wilfrid Lincoln Jr., D.O. - 04/07/2023 9:56 AM CST Care coordination-dialysis visit-care plan There has been a difficult and prolonged clinical trajectory over the past several months for her. She began losing energy, strength, and overall failure to thrive, culminating in hospitalization in January of 2023. Despite a wide ranging evaluation, no readily apparent cause was noted, and appreciate that her adequacy values for peritoneal dialysis were meeting target with a KT/V of 1.89. Her CT scan showed some bladder wall thickening, and a splenic infarct. No readily apparent cause of the splenic infarct was noted, she had no dysrhythmias noted, no hypercoagulable state and the vasculitis evaluation was negative. Since she has been on incenter hemodialysis we have also initiated anti depression therapy, and satnam has moved into her home with her. She has improved dramatically with respect to her overall sense of well-being, appetite, energy, and once again is even at a point where she wishes to drive herself to dialysis. The improvement seemsmultifactorial, and nonetheless, we are going to proceed with her transitioning to incenter hemodialysis at the patient's wish. A care plan was done today at the chair side with the patient, and her daughter as well as our entire care team including both incenter and peritoneal teammates. There areseveral other factors, including space availability at the home now that her daughter has moved in,the disposal of waste issues, and challenges with balance making it difficult for the patient to orchestrate some of the physical maneuvering necessary for peritoneal dialysis. We are going to make the transition to permanent incenter hemodialysis. There are several other issues which need addressed: 1. Her blood pressure has been above target, we had stopped her antihypertensive agents which included hydralazine as well as the amlodipine, and torsemide. We will reinitiate her amlodipine given her high blood pressures and that we are reaching target weight without evident edema 2. We need to orchestrate removal of her peritoneal dialysis catheter 3. We have reviewed her previous cardiovascular evaluations, and her ability to ascend 1 flight of stairs and find her to be optimized for anesthesia. She is okay for general anesthesia if necessary. 4. We discussed that her tunneled dialysis catheter has been functioning poorly requiring tPA on 4 separate occasions. We discussed it would be optimal that we would exchange this catheter, and also discussed longer-term dialysis access issues. 5. She is agreeable to undergoing evaluation with vascular mapping, and an appointment with our vascular access team for creation of either an arteriovenous graft or fistula depending on her vascularsuitability. We discussed the topical analgesia, the increased efficiency of dialysis, and the lower likelihood of complications from her catheter based treatment currently. 6. We discussed her wishes with respect to sustaining life, she wishes to continue to be full code for now. 7. With respect to transplant, she is not a transplant candidate currently, we will continue to re-evaluate this, there are no living donors at this point. [facility] [employer] [facility] documented in this encounter Plan of Treatment Upcoming Encounters Date Type Department Care Team (Latest Contact Info) Description 07/09/2023 8:20 AM SUPERVISOR DELIVERY DEPARTMENT Appointment Department of Laboratory Medicine in [address] [phone] Allyn Alfredo M.D. [address] [place] [phone] 07/09/2023 9:15 AM SUPERVISOR DELIVERY DEPARTMENT Office Visit Department of Family Medicine, [facility], in [address] [phone] Allyn Alfredo M.D. [address] [place] [phone] 07/16/2023 12:06 PM SUPERVISOR DELIVERY DEPARTMENT Hospital Encounter Post Anesthesia Care Unit in [address] [phone] Cristhian Grant M.B., Ch.B., Ph.D. [address] [place] [phone] 07/16/2023 12:06 PM SUPERVISOR DELIVERY DEPARTMENT - 07/16/2023 3:35 PM SUPERVISOR DELIVERY DEPARTMENT Surgery [facility] OR [address] [place] [phone] Cristhian Grant M.B., Ch.B., Ph.D. [address] [place] [address] CREATION FISTULA RADIOCEPHALIC ARTERIOVENOUS 07/20/2023 11:00 AM CDT Office Visit Department of Orthopedic Surgery in [address] [phone] Cindy Walker D.P.M. [address] [place] [phone] Discharge Disposition: Home or Self Care 08/25/2023 3:15 PM CDT Telemedicine Department of Sleep Medicine in [place], [place] 2[address] [place] [phone] Emilee Emanuel APRN, C.N.P., D.N.P., M.S.N. 2199 [place] [phone] Scheduled Procedures Name Priority Associated Diagnoses Date/Ti me CREATION FISTULA RADIOCEPHALIC ARTERIOVENOUS Chronic Kidney Disease Stage 5 Glomerular 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) 07/16/2023 12:06 PM SUPERVISOR DELIVERY DEPARTMENT CREATION FISTULA BRACHIOCEPHALIC ARTERIOVENOUS Chronic Kidney Disease Stage 5 Glomerular 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) 07/16/2023 12:06 PM SUPERVISOR DELIVERY DEPARTMENT documented as of this encounter Visit Diagnoses Not on filedocumented in this encounter Additional Health Concerns Assessment Noted Time PHQ-9 Depression Total Score: 0 02/24/20 23 1:03 PM CDT documented as of this encounter Care Teams Profile Grinder Technician Relationship Specialty Start Date End Date Allyn Alfredo M.D. [address] [place] [phone] PCP - General Family Medicine 04/05/21 documented as of this encounter
--- OUTSIDE RECORDS SUMMARY | 2023-06-24 18:12 | XMS_ITS | Encounter Summary ---
Author Name Unknown Organization [facility] Address [address] [place] [address] Care Team Providers Care Mixer Tender Name Role Phone Allyn Alfredo M.D. Primary Care Pro vider Encounter Details Date Type Department Care Team (Late st Contact Info) Description 03/19/2023 Documentation Division of Nephrology and Hypertension in [place], [place] [address] [place] [phone] Wilfrid Lincoln Jr., D.O. [address] [place] [phone] Social History Tobacco Use Types Packs/Day Years [...] How often do you attend chur or adventism services? 1 to 4 times per year 09/11/2022 Do you belong to any clubs o r organizations such as congregational groups, unions, fraternal or athletic groups, or [...] 02/23/2023 [facility] Occupat ional Health - [...] Assigned at Female 03/27/2017 3:30 PM SUPERVISOR COOPERAGE [employer] Gender Identity Female 03/27/2017 3:30 PM SUPERVISOR [employer] Sexual Orientation Straight 03/27/2017 3: 30 PM SUPERVISOR COOPERAGE [employer] documented as of this encounter Progress Notes * Wilfrid Lincoln Jr., Jayden.O. - 03/19/2023 10:01 AM CST Care coordination note: Result discussion I called the patient today, she was undergoing dialysis. We discussed the findings on her CT scan yesterday. 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 Fortunately no evidence of intra-abdominal or pelvic malignancy. No unusual bony abnormalities. She is asymptomatic from the perspective of urinary habits, and mentioned she is making just a bit more urine recently. However, we decided to move ahead with treatment: antibiotics with Bactrim double-strength 1 orally daily, given her ESRD. We will do this for 5 days. Additionally, given her elevated sedimentation rate (02/23/23), and recent severe fatigue, out of an abundance of caution I will arrange for a Holter monitor to rule out atrial fibrillation which maybe paroxysmal. Additionally, I will ask for a series of vasculitis serologies, and a paraprotein assessment. I am encouraged that she is feeling a bit better, uncertain whether this will continue on the trajectory, and how much might be due to her anemia being corrected. Whether we will transition permanently to incenter hemodialysis will be determined over the next 2-4 weeks. [employer] documented in this encounter Plan of Treatment Upcoming Encounters Date Type Department Care Team (Latest Contact Info) Description 07/09/2023 8:20 AM SUPERVISOR COOPERAGE [employer] Appointment Department of Laboratory Medicine in [address] [phone] Allyn Alfredo M.D. [address] [place] [phone] 07/09/2023 9:15 AM SUPERVISOR COOPERAGE [employer] Office Visit Department of Family Medicine, [facility], in [address] [phone] Allyn Alfredo M.D. [address] [place] [phone] 07/16/2023 12:06 PM SUPERVISOR COOPERAGE [employer] Hospital Encounter Post Anesthesia Care Unit in [address] [phone] Cristhian Grant M.B., Ch.B., Ph.D. 200 [place] [phone] 07/16/2023 12:06 PM SUPERVISOR COOPERAGE SH[employer] - 07/16/2023 3:35 PM SUPERVISOR COOPERAGE SHOP Surgery [facility] [address] [place] [phone] Cristhian Grant M.B., Ch.B., Ph.D. 200 [place] [phone] CREATION FISTULA RADIOCEPHALIC ARTERIOVENOUS 07/20/2023 11:00 AM CDT Office Visit Department of Orthopedic Surgery in [address] [phone] Cindy Walker D.PAv [address] [place] [phone] Discharge Disposition: Home or Self Care 08/25/2023 3:15 PM CDT Telemedicine Department of Sleep Medicine in [place], [place] [address] [phone] Emilee Emanuel APRN, C.N.P., D.N.P., M.S.N. [address] [phone] Scheduled Procedures Name Priority Associated Diagnoses Date/Ti me CREATION FISTULA RADIOCEPHALIC ARTERIOVENOUS Chronic Kidney Disease Stage 5 Glomerular 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) 07/16/2023 12:06 PM SUPERVISOR COOPERAGE SHOP CREATION FISTULA BRACHIOCEPHALIC ARTERIOVENOUS Chronic Kidney Disease Stage 5 Glomerular 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) 07/16/2023 12:06 PM SUPERVISOR COOPERAGE [employer]OP documented as of this encounter Visit Diagnoses Not on filedocumented in this encounter Additional Health Concerns Assessment Noted Time PHQ-9 Depression Total Score: 0 02/24/20 1:03 PM CDT documented as of this encounter Care Teams Mixer Tender Relationship Specialty Start Date End Date Allyn Alfredo M.D. [address] [phone] PCP - General Family Medicine 04/05/21 documented as of this encounter
--- OUTSIDE RECORDS SUMMARY | 2023-06-24 18:12 | XMS_ITS | Encounter Summary ---
Author Name Unknown Organization [facility] Address [address] [place] [address] Care Team Providers Care Seismograph Chief Name Role Phone Allyn Alfredo M.D. Primary Care Pro vider Reason for Referral * Outpatient (Routine) - Authorized Specialty Diagnoses / Procedures Referred By Contestella t Referred To Contact Diagnoses Chronic Kidney Disease Stage 5 Glomerular 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) Diabetes Mellitus Type 2 With Diabetic Nephropathy (HCC) Hypertension And Chronic Kidney Disease Stage 5 (HCC) Hyperparathyroidism Renal Secondary (HCC) Infarction Spleen Procedures ECG Heart rhythm monitor (Holter) Wilfrid Lincoln Jr., D.OLeida [address] [place] [phone] [facility] Referral ID Status Reason Start Date Expiration Date V isits Requested Visits Authorized [id number] Authorized 03/19/2023 03/18/2024 1 1 GER UTILIZATION MANAGEMENT Encounter Details Date Type Department Care Team (Late st Contact Info) Description 03/19/2023 Orders Only Division of Nephrology and Hypertension in [place], [place] [address] [place] [phone] Wilfrid Lincoln Jr., D.O. [address] [place] [phone] Chronic Kidney Disease Stage 5 Glomerular 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) (Primary Dx); Diabetes Mellitus Type 2 With Diabetic Nephropathy (HCC); Hypertension And Chronic Kidney Disease Stage 5 (HCC); Hyperparathyroidism Renal Secondary (HCC); Infarction Spleen Social History Tobacco Use Types Packs/Day Years [...] week 09/11/2022 [facility] you attend [facility] or [facility] services? 1 to 4 times per year 09/11/2022 Do you belong to any clubs o r organizations such as episcopalian groups, unions, fraternal or athletic groups, or [...] Answer Date Recorded PHQ-2 Score 0 02/23/2023 [facility] - Occupational [...] place to sleep or slept in a chcf (including now)? No 09/11/2022 Depression Answer Date [...] Sex Assigned at Female 03/27/2017 3:30 PM MANAGER UTILIZATION MANAGEMENT Gender Identity Female 03/27/2017 3:30 PM MANAGER UTILIZATION MANAGEMENT Sexual Orientation Straight 03/27/2017 3: 30 PM MANAGER UTILIZATION MANAGEMENT documented as of this encounter Plan of Treatment Upcoming Encounters Date Type Department Care Team (Latest Contact Info) Description 07/09/2023 8:20 AM MANAGER UTILIZATION MANAGEMENT Appointment Department of Laboratory Medicine in [address] [phone] Allyn Alfredo M.D. [address] [place] [phone] 07/09/2023 9:15 AM MANAGER UTILIZATION MANAGEMENT Office Visit Department of Family Medicine, [facility], in [address] [phone] Allyn Alfredo M.D. [address] [place] [phone] 07/16/2023 12:06 PM MANAGER UTILIZATION MANAGEMENT Hospital Encounter Post Anesthesia Care Unit in [place], [place] [address] [place] [phone] Cristhian Grant M.B., Ch.B., Ph.D. [address] [place] [phone] 07/16/2023 12:06 PM MANAGER UTILIZATION MANAGEMENT - 07/16/2023 3:35 PM MANAGER UTILIZATION MANAGEMENT Surgery [facility] MAIN OR [address] [place] [phone] Cristhian Grant M.B., Ch.B., Ph.D. [address] [place] [address] CREATION FISTULA RADIOCEPHALIC ARTERIOVENOUS 07/20/2023 11:00 AM CDT Office Visit Department of Orthopedic Surgery in [address] [phone] Cindy Walker D.PLeidaMLeida [address] [place] [phone] Discharge Disposition: Home or Self Care 08/25/2023 3:15 PM CDT Telemedicine Department of Sleep Medicine in [place], [place] [address] [phone] Emilee Emanuel APRN, C.N.P., D.N.P., M.S.N. [address] [phone] Scheduled Procedures Name Priority Associated Diagnoses Date/Ti me CREATION FISTULA RADIOCEPHALIC ARTERIOVENOUS Chronic Kidney Disease Stage 5 Glomerular 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) 07/16/2023 12:06 PM MANAGER UTILIZATION MANAGEMENT CREATION FISTULA BRACHIOCEPHALIC ARTERIOVENOUS Chronic Kidney Disease Stage 5 Glomerular 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) 07/16/2023 12:06 PM MANAGER UTILIZATION MANAGEMENT documented as of this encounter Results * HOLTER MONITOR - IN CLINIC MARKETING SERVICES REP (03/21/2023 8:09 AM MANAGER UTILIZATION MANAGEMENT) Min Heart Rate 58 bpm INFOBIONIC MOME Max Heart Rate 119 bpm INFOBIONIC MOME Mean Heart Rate 80 bpm INFOBIONIC MOME VE Total Beats 1439 count INFOBIONIC MOME VE Percent Beats 1 percent INFOBIONIC MOME SVE Total Beats 1732 count INFOBIONIC MOME SVE Percent Beats 2 percent INFOBIONIC MOME AF Count 0 count INFOBIONIC MOME AF Duration 0 duration INFOBIONIC MOME AF Burgess 0 percent INFOBIONIC MOME Symptom Count 0 count INFOBIONIC MOME 03/20/2023 2:53 PM MANAGER UTILIZATION MANAGEMENT Narrative CAMDEN MOME - 03/24/2023 9:21 AM MANAGER UTILIZATION MANAGEMENT Otto 1. The basic rhythm was sinus. The total analyzed time was 23h 11m. The heart rate varied from 58 to 119 bpm. The average HR was 80 bpm. 2. Premature ventricular complexes were noted singly, fused, in bigeminy, and in trigeminy and in pairs. There were 1439 PVCs recorded with a PVC burden of 1%. 3. Premature supraventricular complexes were noted singly, with aberrancy, in pairs and four hundred thirty five 3 to 7 beat atrial runs with a maximum rate of 157 bpm. There were 1732 PACs recorded with a PAC burden of 2%. ??Note PAC counts maybe inaccurate due to similarities in PVC morphologies. 4. No symptomatic event was noted. ?? Graphic User Interface Designer: Ann Jay/[email or web address] A Holter monitor with cascade to extended monitoring was ordered for the indication of Undifferentiated syncope/spells. During the Holter monitoring period, the patient did not report syncope with associated rhythm abnormality (pause >=3 seconds, bradycardia <=30bpm for at least 30 seconds, sustained VT >=110bpm or SVT >=140bpm for >=30 beats). Therefore, the study was cascaded to extended monitoring. Procedure Note Wilfrid Conley M.D. - 03/24/2023 Otto 1. The basic rhythm was sinus. The total analyzed time was 23h 11m. Theheart rate varied from 58 to 119 bpm. The average HR was 80 bpm. 2. Premature ventricular complexes were noted singly, fused, in bigeminy,and in trigeminy and in pairs. There were 1439 PVCs recorded with a PVCburden of 1%. 3. Premature supraventricular complexes were noted singly, with aberrancy,in pairs and four hundred thirty five 3 to 7 beat atrial runs with amaximum rate of 157 bpm. There were 1732 PACs recorded with a PAC burdenof 2%. Note PAC counts maybe inaccurate due to similarities in PVC morphologies. 4. No symptomatic event was noted. Graphic User Interface Designer: Ann Jay/Henrik A Holter monitor with cascade to extended monitoring was ordered for theindication of Undifferentiated syncope/spells. During the Holtermonitoring period, the patient did not report syncope with associatedrhythm abnormality (pause >=3 seconds, bradycardia <=30bpm for at least 30 seconds, sustained VT >=110bpm or SVT>=140bpm for >=30 beats). Therefore, the study was cascaded to extended monitoring. Wilfrid Lincoln Jr., D.O. CV CARDIAC S ERVICES PROCEDURES Performing Organization Address City/[facility]/ZIP Co de Phone Number [facility] ROMAN NA * (ABNORMAL) Immunoglobulin Free Light Chains (03/20/2023 12:58 PM MANAGER UTILIZATION MANAGEMENT) Cubero Free Light Chain, S 12.0(H) 0.3300 - 1.94 mg/dL 03/23/2023 8:48 AM MANAGER UTILIZATION MANAGEMENT ECLR Lambda Free Light Chain, S 9.35(H) 0.5700 - 2.63 mg/dL 03/23/2023 8:48 AM MANAGER UTILIZATION MANAGEMENT ECLR Cubero/Lambda FLC Ratio 1.28 0.2600 - 1.65 03/23/2023 8:48 AM MANAGER UTILIZATION MANAGEMENT ECLR Blood (Blood, Venous) 03/20/2023 12:58 PM MANAGER UTILIZATION MANAGEMENT 03/20/2023 9:04 PM MANAGER UTILIZATION MANAGEMENT Wilfrid Lincoln Jr., D.O. LAB BLOOD AD D-ON Performing Organization Address City/[facility]/ZIP Co de Phone Number [facility] [address] [place] [phone], [facility] ECLR [facility] in [address] [address] * DNA Double-Stranded (dsDNA) Antibodies, IgG (03/20/2023 12:58 PM MANAGER UTILIZATION MANAGEMENT) Pathologist [facility] DNA Double-Stranded Ab, IgG, S <1 <=4 (Negative) IU/mL 03/23/2023 10:27 AM MANAGER UTILIZATION MANAGEMENT ECLR Blood (Blood, Venous) 03/20/2023 12:58 PM MANAGER UTILIZATION MANAGEMENT 03/20/2023 9:26 PM MANAGER UTILIZATION MANAGEMENT Wilfrid Lincoln Jr., D.O. LAB BLOOD AD D-ON Performing Organization Address City/[facility] Co de Phone Number [facility] [address] [place] [address], [facility] ECLR [facility] [place] [address] * Phospholipid (Cardiolipin) Antibodies, IgG and IgM (03/20/2023 12:58 PM MANAGER UTILIZATION MANAGEMENT) Phospholipid Ab IgM, S <9.4 <15.0 (Negative) MPL 03/24/2023 11:12 AM MANAGER UTILIZATION MANAGEMENT SDSC Phospholipid Ab IgG, S <9.4 <15.0 (Negative) GPL 03/24/2023 11:12 [address] UTILIZATION MANAG[address] [facility] Blood (Blood, Venous) 03/20/2023 12:58 PM MANAGER UTILIZATION MANAGEMENT 03/23/2023 8:11 AM MANAGER UTILIZATION MANAGEMENT Wilfrid Lincoln Jr., D.O. LAB BLOOD AD D-ON Performing Organization Address City/[facility]/ZIP Co de Phone Number [facility] [address] [place] [address] [facility] [address] [place] [address] * Glomerular Basement Membrane Antibodies, IgG (03/20/2023 12:58 PM MANAGER UTILIZATION MANAGEMENT) Glomerular Basement Membrane IgG Ab <0.2 <1.0 (Negative) U 03/21/2023 9:49 AM MANAGER UTILIZATION MANAGEMENT [facility] Blood (Blood, Venous) 03/20/2023 12:58 PM MANAGER UTILIZATION MANAGEMENT 03/21/2023 7:30 AM MANAGER UTILIZATION MANAGEMENT Wilfrid Lincoln Jr., D.O. LAB BLOOD AD D-ON [facility] [address] [place] [address] [facility] [address] [place] [address] * Cryoglobulin (03/20/2023 12:58 PM MANAGER UTILIZATION MANAGEMENT) [facility] Cryoglobulin , S Negative. This test is negative at 24 hours. All samples are held and reviewed again at 7 days. If delayed precipitation occurs after 7 days, Immunofixation will be performed and an additional report will follow. Negative %ppt 03/24/2023 9:57 AM MANAGER UTILIZATION MANAGEMENT [facility] Blood (Blood, Venous) 03/20/2023 12:58 PM MANAGER UTILIZATION MANAGEMENT 03/23/2023 9:48 AM MANAGER UTILIZATION MANAGEMENT Wilfrid Lincoln Jr., D.O. LAB BLOOD NO N ADD-ON Performing Organization Address [facility] Co de Phone Number [facility] [address] [place] [address] [facility] [address] [place] [address] [place] [address] * (ABNORMAL) CRP (C-Reactive Protein) (03/20/2023 12:58 PM MANAGER UTILIZATION MANAGEMENT) [facility] C-Reactive Protein (CRP), P 18.2(H) <5.0 mg/L 03/20/2023 1:23 PM MANAGER UTILIZATION MANAGEMENT [facility] Blood (Blood, Venous) 03/20/2023 12:58 PM MANAGER UTILIZATION MANAGEMENT 03/20/2023 1:00 PM MANAGER UTILIZATION MANAGEMENT Wilfrid Lincoln Jr., D.O. LAB BLOOD AD D-ON Performing Organization Address City/[facility]/ZIP Co de Phone Number [facility] [address] [place] [phone], [facility] CNFL [facility] in [address] [address] * ANCA (Antineutrophil Cytoplasmic Antibodies) Vasculitis Panel (03/20/2023 12:58 PM MANAGER UTILIZATION MANAGEMENT) Myeloperoxidase Ab, S <0.2 <0.4 (Negative ) U 03/21/2023 9:49 AM MANAGER UTILIZATION MANAGEMENT SDSC Proteinase 3 Ab (PR3), S <0.2 <0.4 (Negative ) U 03/21/2023 9:49 AM MANAGER UTILIZATION MANAGEMENT [facility] Blood (Blood, Venous) 03/20/2023 12:58 PM MANAGER UTILIZATION MANAGEMENT 03/21/2023 7:30 AM MANAGER UTILIZATION MANAGEMENT Wilfrid Lincoln Jr. DYelena LAB BLOOD AD D-ON [facility] [address] [place] [address] [facility] [address] [place] [address] documented in this encounter Visit Diagnoses Diagnosis Chronic Kidney Disease Stage 5 Glomerular 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)- Primary Diabetes Mellitus Type 2 With Diabetic Nephropathy (HCC) Hypertension And Chronic Kidney Disease Stage 5 (HCC) Hyperparathyroidism Renal Secondary (HCC) Infarction Spleen Chronic Kidney Disease Stage 5 Glomerular 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) Diabetes Mellitus Type 2 With Diabetic Nephropathy (HCC) Hypertension And Chronic Kidney Disease Stage 5 (HCC) Hyperparathyroidism Renal Secondary (HCC) Infarction Spleen Chronic Kidney Disease Stage 5 Glomerular 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) documented in this encounter Additional Health Concerns Assessment Noted Time PHQ-9 Depression Total Score: 0 02/24/20 23 1:03 PM CDT documented as of this encounter Care Teams Seismograph Chief Relationship Specialty Start Date End Date Allyn Alfredo M.D. [id number] [place] [phone] PCP - General Family Medicine 04/05/21 documented as of this encounter
--- OUTSIDE RECORDS SUMMARY | 2023-06-24 18:12 | XMS_ITS | Encounter Summary ---
Author Name Unknown Organization [facility] Address [address] [place] [address] Care Team Providers Care Door Captain Name Role Phone Allyn Alfredo M.D. Primary Care Pro vider Encounter Details Date Type Department Care Team (Late st Contact Info) Description 04/07/2023 Clinical Communication Division of Pediatric Surgery in [place], [place] [address] [place] [phone] Christine Warren Jr., M.D. [address] [place] [phone] Social History Tobacco Use Types Packs/Day Years [...] How often do you attend chur or lutheran services? 1 to 4 times per year 09/11/2022 Do you belong to any clubs o r organizations such as hindu groups, unions, fraternal or athletic groups, or [...] Answer Date Recorded PHQ-2 Score 0 02/23/2023 [facility] - [...] Sex Assigned at Female 03/27/2017 3:30 PM ELECTRONEURODIAGNOSTIC TECHNICIAN Gender Identity Female 03/27/2017 3:30 PM ELECTRONEURODIAGNOSTIC TECHNICIAN Sexual Orientation Straight 03/27/2017 3: 30 PM ELECTRONEURODIAGNOSTIC TECHNICIAN documented as of this encounter Plan of Treatment Upcoming Encounters Date Type Department Care Team (Latest Contact Info) Description 07/09/2023 8:20 AM ELECTRONEURODIAGNOSTIC TECHNICIAN Appointment Department of Laboratory Medicine in [address] [phone] Allyn Alfredo M.D. [address] [place] [phone] 07/09/2023 9:15 AM ELECTRONEURODIAGNOSTIC TECHNICIAN Office Visit Department of Family Medicine, [facility], in [address] [phone] Allyn Alfredo M.D. [address] [place] [phone] 07/16/2023 12:06 PM ELECTRONEURODIAGNOSTIC TECHNICIAN Hospital Encounter Post Anesthesia Care Unit in [address] [phone] Cristhian Grant M.B., Ch.B., Ph.D. [address] [place] [phone] 07/16/2023 12:06 PM ELECTRONEURODIAGNOSTIC TECHNICIAN - 07/16/2023 3:35 PM ELECTRONEURODIAGNOSTIC TECHNICIAN Surgery [facility] MAIN OR [address] [place] [phone] Cristhian Grant M.B., Ch.B., Ph.D. [address] [place] [phone] CREATION FISTULA RADIOCEPHALIC ARTERIOVENOUS 07/20/2023 11:00 AM CDT Office Visit Department of Orthopedic Surgery in [address] [phone] Cindy Walker D.P.M. [address] [place] [phone] Discharge Disposition: Home or Self Care 08/25/2023 3:15 PM CDT Telemedicine Department of Sleep Medicine in [place], [place] [address] [place] [phone] Emilee Emanuel APRN, C.N.P., D.N.P., M.S.N. [address] [facility] [place] [phone] Scheduled Procedures Name Priority Associated Diagnoses Date/Ti me CREATION FISTULA RADIOCEPHALIC ARTERIOVENOUS Chronic Kidney Disease Stage 5 Glomerular 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) 07/16/2023 12:06 PM ELECTRONEURODIAGNOSTIC TECHNICIAN CREATION FISTULA BRACHIOCEPHALIC ARTERIOVENOUS Chronic Kidney Disease Stage 5 Glomerular 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) 07/16/2023 12:06 PM ELECTRONEURODIAGNOSTIC TECHNICIAN documented as of this encounter Visit Diagnoses Not on filedocumented in this encounter Additional Health Concerns Assessment Noted Time PHQ-9 Depression Total Score: 0 02/24/20 23 1:03 PM CDT documented as of this encounter Care Teams Door Captain Relationship Specialty Start Date End Date Allyn Alfredo M.D. [phone] [place] [phone] PCP - General Family Medicine 04/05/21 documented as of this encounter
--- OUTSIDE RECORDS SUMMARY | 2023-06-24 18:12 | XMS_ITS | Encounter Summary ---
Author Name Unknown Organization [facility] Address [address] [place] [address] Care Team Providers Care Shoe Repairer Apprentice Name Role Phone Allyn Alfredo M.D. Primary Care Pro vider Reason for Visit * Outpatient (Routine) - Closed Specialty Diagnoses / Procedures Referred By Esther zamorano Referred To Contact Radiology Diagnoses Chronic Kidney Disease Stage 5 Glomerular 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) Diabetes Mellitus Type 2 With Diabetic Nephropathy (HCC) Hyperparathyroidism Renal Secondary (HCC) Anemia Of Chronic Renal Disease Dialysis Peritoneal Status (HCC) Procedures IR Dialysis / High Flow Catheter Removal IR Dialysis / High Flow Catheter Exchange Wilfrid Licnoln Jr., D.O. [address] [place] [address] [facility] Referral ID Status Reason Start Date Expiration Date Visits Re quested Visits Authorized [id number] Closed 04/07/2023 04/06/2024 1 1 Encounter Details Date Type Department Care Team (Latest Contact Info) Description 04/08/2023 11:46 AM FENCE INSTALLER FOREMAN - 04/08/2023 5:50 PM [facility] Hospital Encounter Department of Radiology in [place], [place] [address] [place] [phone] Wilfrid Lincoln Jr., D.O. [address] [place] [phone] Dragan [place] [phone] Chronic Kidney Disease Stage 5 Glomerular 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); Diabetes Mellitus Type 2 With Diabetic Nephropathy (HCC); Hyperparathyroidism Renal Secondary (HCC); Anemia Of Chronic Renal Disease; Dialysis Peritoneal Status (HCC) Discharge Disposition: Home or Self Care Social [...] Answer Date Recorded PHQ-2 Score 0 02/23/2023 [facility] Occupat ional [facility] - Occupational Stress [...] Sex Assigned at Female 03/27/2017 3:30 PM FENCE INSTALLER FOREMAN Gender Identity Female 03/27/2017 3:30 PM FENCE INSTALLER FOREMAN Sexual Orientation Straight 03/27/2017 3: 30 PM FENCE INSTALLER FOREMAN documented as of this encounter Last Filed Vital Signs Vital Sign Reading Time Taken Comments Blood Pressure 151/58 04/08/2023 2:01 PM FENCE INSTALLER FOREMAN Pulse 73 04/08/2023 1:45 PM FENCE INSTALLER FOREMAN Temperature 37.2 ??C (99 ??F) 04/08/2023 12:37 PM FENCE INSTALLER FOREMAN Respiratory Rate 15 04/08/2023 1:45 PM FENCE INSTALLER FOREMAN Oxygen Saturation 99% 04/08/2023 1:45 PM FENCE INSTALLER FOREMAN Inhaled Oxygen Concentration - - Weight 85.5 kg (188 lb 7.9 oz) 04/08/2023 12:37 PM FENCE INSTALLER FOREMAN Height - - Body Mass Index 32.18 03/10/2023 2:13 PM CDT documented in this encounter Discharge Instructions * Attachments The following attachments cannot be sent through Care Everywhere. * Hemodialysis Catheters (Bulgarian) documented in this encounter Medications at Time [...] each 3 12/25/2022 blood-glucose meter,continuous ([employer] G7 [employer]) misc Use as directed 3 (three) times a day. 1 each 11 07/29/2022 07/29/2023 blood-glucose meter,continuous [facility] [place] to monitor blood glucose 1 each 0 04/09/2021 blood-glucose sensor ([employer] G7 Sensor) device 1 Device as directed [...] BEDTIME FOR CHOLESTEROL 90 tablet 3 01/01/2023 sulfamethoxazole-tri methoprim (BACTRIM DS) 800-160 mg per tablet Take 1 tablet by mouth every 12 (twelve) hours for 5 days. 10 tablet 0 04/08/2023 04/13/2023 allopurinoL (ZYLOPRIM) 100 mg tablet TAKE 1 [...] 03/03/2023 05/19/2023 documented as of this encounter Procedure Notes * Dragan Seymour M.D. - 04/08/2023 1:46 PM CST PATIENT DISPOSITION Return to Outpatient Unit for recovery. Discharge patient when discharge criteria met. POST-PROCEDURE DIAGNOSIS Dialysis catheter with poor flows Redness at right neck venotomy site PROCEDURE PERFORMED AND DESCRIPTION 1. Removal of existing right IJ Palindrome catheter. Tip sent for culture. 2. Placement of a new right IJ tunneled 14-Salvadorean Nikita Split dialysis catheter with new venotomy andtunnel site. Ready for immediate use. Patient will be placed on five day course of PO Bactrim due to concern for redness and purulence atold venotomy site. PROCEDURE DETAILS See Radiology Report SPECIMENS REMOVED None FINDINGS As above PRIMARY PROCEDURALIST Carolann Seymour MD [phone] ASSISTANTS None COMPLICATIONS None. DRAINS None. IMPLANTS Reference implant document. ANESTHESIA Moderate Sedation. FLUIDS See EMR ESTIMATED BLOOD LOSS <5ml CURRENT MEDICATIONS No Medication Changes FOLLOW-UP LETTER None. MAY RETURN TO WORK Not applicable PATIENT INSTRUCTIONS No return appointment E INSTALLER FOREMAN documented in this encounter Plan of Treatment Upcoming Encounters Date Type Department Care Team (Latest Contact Info) Description 07/09/2023 8:20 AM FENCE INSTALLER FOREMAN Appointment Department of Laboratory Medicine in [address] [phone] Allyn Alfredo M.D. [address] [place] [phone] 07/09/2023 9:15 AM FENCE INSTALLER FOREMAN Office Visit Department of Family Medicine, [facility], in [address] [phone] Allyn Alfredo M.D. [address] [place] [phone] 07/16/2023 12:06 PM FENCE INSTALLER FOREMAN Hospital Encounter Post Anesthesia Care Unit in [place], [place] [address] [place] [phone] Cristhian Grant M.B., Ch.B., Ph.D. [address] [place] [phone] 07/16/2023 12:06 PM FENCE INSTALLER FOREMAN - 07/16/2023 3:35 PM FENCE INSTALLER FOREMAN Surgery [facility] [address] [place] [phone] Cristhian Grant M.B., Ch.B., Ph.D. [address] [place] [phone] CREATION FISTULA RADIOCEPHALIC ARTERIOVENOUS 07/20/2023 11:00 AM CDT Office Visit Department of Orthopedic Surgery in [address] [phone] Cindy Walker D.PLeidaMLeida [address] [place] [phone] Discharge Disposition: Home or Self Care 08/25/2023 3:15 PM CDT Telemedicine Department of Sleep Medicine in [place], [place] [address], [place] [phone] Emilee Emanuel APRN, C.N.P., D.N.P., M.S.N. [address], [place] [phone] Scheduled Procedures Name Priority Associated Diagnoses Date/Ti me CREATION FISTULA RADIOCEPHALIC ARTERIOVENOUS Chronic Kidney Disease Stage 5 Glomerular 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) 07/16/2023 12:06 PM FENCE INSTALLER FOREMAN CREATION FISTULA BRACHIOCEPHALIC ARTERIOVENOUS Chronic Kidney Disease Stage 5 Glomerular 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) 07/16/2023 12:06 PM FENCE INSTALLER FOREMAN documented as of this encounter Procedures Procedure Name Priority Date/Time Associated Diagnosis Comments IR DIALYSIS / HIGH FLOW CATHETER REMOVAL RAD - Routine (most inpatients and all outpatients) 04/08/2023 1:44 PM FENCE INSTALLER FOREMAN Chronic Kidney Disease Stage 5 Glomerular 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) Diabetes Mellitus Type 2 With Diabetic Nephropathy (HCC) Hyperparathyroidis m Renal Secondary (HCC) Anemia Of Chronic Renal Disease Dialysis Peritoneal Status (HCC) IR DIALYSIS / HIGH FLOW CATHETER PLACEMENT RAD - Routine (most inpatients and all outpatients) 04/08/2023 1:44 PM FENCE INSTALLER FOREMAN Chronic Kidney Disease Stage 5 Glomerular 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) Diabetes Mellitus Type 2 With Diabetic Nephropathy (HCC) Hyperparathyroidis m Renal Secondary (HCC) Anemia Of Chronic Renal Disease Dialysis Peritoneal Status (HCC) BACTERIAL CULTURE, AEROBIC + SUSC Timed 04/08/2023 1:24 PM FENCE INSTALLER FOREMAN GLUCOSE POCT, B Routine 04/08/2023 12:33 PM FENCE INSTALLER FOREMAN documented in this encounter Results * IR Dialysis / High Flow Catheter Placement (04/08/2023 1:44 PM FENCE INSTALLER FOREMAN) Anatomical Region Laterality Modality Body, Vascular Interventiona l RST LOS, Vascular Interventional ARZ LOS, Vascular Interventional FLA LOS N/A X-Ray Angiography 04/08/2023 1:59 PM FENCE INSTALLER FOREMAN Impressions 04/08/2023 2:07 PM FENCE INSTALLER FOREMAN 1. Removal of the existing poorly functioning right IJ tunneled Palindrome dialysis catheter. 2. Placement of a new right IJ tunneled 14-Salvadorean AshSplit dialysis catheter, which is ready for immediate use. 3. Patient will be placed on a 5 day course of Bactrim for suspected infection at the old right neck venotomy site. She is instructed to follow up with either her nephrology team or primary care provider. NR Narrative 04/08/2023 2:07 PM FENCE INSTALLER FOREMAN EXAM: IR DIALYSIS / HIGH FLOW CATHETER [...] Placement of a new right IJ tunneled 14-Salvadorean AshSplit dialysiscatheter, which is ready for immediate use. 3. Patient will be placed on a 5 day course of Bactrim for suspectedinfection at the old right neck venotomy site. She is instructed to followup with either her nephrology team or primary care provider. NR Wilfrid Lincoln Jr., D.O. IMG IR PROCE DURES * IR Dialysis / High Flow Catheter Removal (04/08/2023 1:44 PM FENCE INSTALLER FOREMAN) Anatomical Region Laterality Modality Body, Vascular Interventiona l RST LOS, Vascular Interventional ARZ LOS, Vascular Interventional FLA LOS N/A X-Ray Angiography 04/08/2023 1:59 PM FENCE INSTALLER FOREMAN Impressions 04/08/2023 2:07 PM FENCE INSTALLER FOREMAN 1. Removal of the existing poorly functioning right IJ tunneled Palindrome dialysis catheter. 2. Placement of a new right IJ tunneled 14-Salvadorean AshSplit dialysis catheter, which is ready for immediate use. 3. Patient will be placed on a 5 day course of Bactrim for suspected infection at the old right neck venotomy site. She is instructed to follow up with either her nephrology team or primary care provider. NR Narrative 04/08/2023 2:07 PM FENCE INSTALLER FOREMAN EXAM: IR DIALYSIS / HIGH FLOW CATHETER [...] Placement of a new right IJ tunneled 14-Salvadorean AshSplit dialysiscatheter, which is ready for immediate use. 3. Patient will be placed on a 5 day course of Bactrim for suspectedinfection at the old right neck venotomy site. She is instructed to followup with either her nephrology team or primary care provider. NR Wilfrid Lincoln Jr., D.O. IMG TYRA JOSHI * Bacterial Culture, Aerobic + Susceptibility (04/08/2023 1:24 PM FENCE INSTALLER FOREMAN) Bacterial Culture, Aerobic + Susc No growth after 5 days of incubation. 04/13/2023 8:01 AM FENCE INSTALLER FOREMAN DTL Device (Catheter Tip) 04/08/2023 1:24 PM FENCE INSTALLER FOREMAN 04/08/2023 2:10 PM FENCE INSTALLER FOREMAN Comment:Specimen Source Site : Device Wilfrid Lincoln Jr., D.O. LAB MICROBIO LOGY - GENERAL ORDERABLES [facility] [address] [place] [address], [facility] [address] [place] [address] * (ABNORMAL) Glucose, POCT (04/08/2023 12:33 PM FENCE INSTALLER FOREMAN) Glucose, POCT, B 141(H) 70 - 140 mg/dL 04/08/2023 12:39 PM FENCE INSTALLER FOREMAN PCLX Site Capillary 04/08/2023 12:39 PM FENCE INSTALLER FOREMAN PCLX Blood 04/08/2023 12:3 3 PM FENCE INSTALLER FOREMAN 04/08/2023 12:39 PM FENCE INSTALLER FOREMAN Unknown Provider LAB POCT ORDERABLES- MANUAL POC [facility] [address] [place] [address], [place] PCLX [facility] [place] POC [address] [place] [address] documented in this encounter Visit Diagnoses Diagnosis [...] MAR Action Action Date Dose Rate Site fentaNYL injection 25 mcg (SUBLIMAZE) 25 mcg, intravenous, Every 2 min PRN, sedation, Administer over 1 minute immediately prior to the procedure. May repeat every 2 minutes to a maximum of 200 mcg, until pain score of 3 or less, or until the patient meets the pain comfort goal, or RASS 0 to -2. Do not give if respiratory rate is less than 8 breaths/minute., Starting on Thu04/08/23 at 1308, For 3 hours, Intraprocedure (RAD) Given 04/08/2023 1:17 PM FENCE INSTALLER FOREMAN 25 mcg Given 04/08/2023 1:10 PM FENCE INSTALLER FOREMAN 25 mcg Given 04/08/2023 1:08 PM FENCE INSTALLER FOREMAN 25 mcg flumazeniL injection 0.2 mg (ROMAZICON) 0.2 mg, intravenous, Once as needed, reversal, Starting on Thu04/08/23 at 1308, For 1 dose, Intraprocedure (RAD), Administer once if patient has a RASS score of -4, -5 and has a respiratory rate less than 8 breaths/minute. Lactated Ringer's 20 mL/hr, intravenous, Once as needed, to keep vein open, Starting on Thu04/08/23 at 1308, For 1 dose, Intraprocedure (RAD) lidocaine-sodium bicarbonate (buffered) 0.9%-8.4% injection infiltration, As needed, Starting on Thu04/08/23 at 1342, Intra-Op Given 04/08/2023 1:42 PM FENCE INSTALLER FOREMAN 7 mL midazolam (PF) injection 0.5 mg (VERSED) 0.5 mg, intravenous, Once as needed, sedation, Starting on 11/29/23 at 1308, For 1 dose, Intraprocedure (RAD) midazolam (PF) injection 0.5 mg (VERSED) 0.5 mg, intravenous, Every 2 min PRN, sedation, RASS -1, Starting on Thu04/08/23 at 1308, For 3 hours, Intraprocedure (RAD), May repeat every 2 minutes for a maximum of 5 mg. Do not give if respiratory rate is less than 8 breaths/minute. Given 04/08/2023 1:17 PM FENCE INSTALLER FOREMAN 0.5 mg Given 04/08/2023 1:10 PM FENCE INSTALLER FOREMAN 0.5 mg Given 04/08/2023 1:08 PM FENCE INSTALLER FOREMAN 0.5 mg naloxone injection 0.2 mg (NARCAN) 0.2 mg, intravenous, Once as needed, respiratory depression, Starting on Thu04/08/23 at 1308, For 1 dose, Intraprocedure (RAD), Administer once if patient has a RASS score of -4, -5 and has a respiratory rate less than 8 breaths/minute. sodium chloride 0.9 % injection 10 mL 10 mL, intravenous, As needed, line care, Starting on Thu04/08/23 at 1216, Preprocedure (RAD), Peripheral Intravenous Catheter and Rapid Infusion Catheter, prior to blood sampling, post blood transfusion or post blood sampling sodium chloride 0.9 % injection 3 mL 3 mL, intravenous, As needed, line care, Starting on Thu04/08/23 at 1216, Preprocedure (RAD), Prior to and following infusion and between multiple consecutive infusions: sodium chloride 0.9 % injection sodium chloride 0.9 % injection 3 mL 3 mL, intravenous, Every 12 hours scheduled, First dose on Thu04/08/23 at 2100, Preprocedure (RAD), Peripheral Intravenous Catheter and Rapid Infusion Catheter, when no infusion to maintain patency sodium citrate 4 % injection As needed, Starting on Thu04/08/23 at 1339, Intra-Op Given 04/08/2023 1:39 PM FENCE INSTALLER FOREMAN 3 mL Given 04/08/2023 1:39 PM FENCE INSTALLER FOREMAN 3 mL documented in this encounter Active and Recently Administered Medications Times are shown in FENCE INSTALLER FOREMAN. Scheduled Medication Order 04/06/2023 04/07/2023 04/08/2023 sodium chloride 0.9 % injection 3 mL 3 mL, intravenous, Every 12 hours scheduled, First dose on Thu04/08/23 at 2100, Preprocedure (RAD), Peripheral Intravenous Catheter and Rapid Infusion Catheter, when no infusion to maintain patency PRN Medication Order 04/06/2023 04/07/2023 04/08/2023 fentaNYL injection 25 mcg (SUBLIMAZE) 25 mcg, intravenous, Every 2 min PRN, sedation, Administer over 1 minute immediately prior to the procedure. May repeat every 2 minutes to a maximum of 200 mcg, until pain score of 3 or less, or until the patient meets the pain comfort goal, or RASS 0 to -2. Do not give if respiratory rate is less than 8 breaths/minute., Starting on Thu04/08/23 at 1308, For 3 hours, Intraprocedure (RAD) 1308 (Given - Provid er: Ishmael Crowder R.N.)1310 (Given - Provider: Ishmael Crowder R.N.)1317 (Given - Provider: Ishmael Crowder R.N.) flumazeniL injection 0.2 mg (ROMAZICON) 0.2 mg, intravenous, Once as needed, reversal, Starting on Thu04/08/23 at 1308, For 1 dose, Intraprocedure (RAD), Administer once if patient has a RASS score of -4, -5 and has a respiratory rate less than 8 breaths/minute. Lactated Ringer's 20 mL/hr, intravenous, Once as needed, to keep vein open, Starting on Thu04/08/23 at 1308, For 1 dose, Intraprocedure (RAD) lidocaine-sodium bicarbonate (buffered) 0.9%-8.4% injection (COMPLETED) infiltration, As needed, Starting on Thu04/08/23 at 1342, Intra-Op 1342 (Given - Provid er: Dragan Seymour M.D.) midazolam (PF) injection 0.25 mg (VERSED) 0.25 mg, intravenous, Every 2 min PRN, sedation, RASS -2, Starting on Thu04/08/23 at 1308, For 3 hours, Intraprocedure (RAD), May repeat every 2 minutes to a maximum of 5 mg. Do not give if respiratory rate is less than 8 breaths/minute. midazolam (PF) injection 0.5 mg (VERSED) 0.5 mg, intravenous, Once as needed, sedation, Starting on Thu04/08/23 at 1308, For 1 dose, Intraprocedure (RAD) midazolam (PF) injection 0.5 mg (VERSED) 0.5 mg, intravenous, Every 2 min PRN, sedation, RASS -1, Starting on Thu04/08/23 at 1308, For 3 hours, Intraprocedure (RAD), May repeat every 2 minutes for a maximum of 5 mg. Do not give if respiratory rate is less than 8 breaths/minute. 1308 (Given - Provid er: Ishmael Crowder R.N.)1310 (Given - Provider: Ishmael Crowder R.N.)1317 (Given - Provider: Ishmael Crowder R.N.) midazolam (PF) injection 1 mg (VERSED) 1 mg, intravenous, Every 2 min PRN, sedation, RASS 0, Starting on Thu04/08/23 at 1308, For 3 hours, Intraprocedure (RAD), May repeat every 2 minutes for a maximum of 5 mg. Do not give if respiratory rate is less than 8 breaths/minute. naloxone injection 0.2 mg (NARCAN) 0.2 mg, intravenous, Once as needed, respiratory depression, Starting on Thu04/08/23 at 1308, For 1 dose, Intraprocedure (RAD), Administer once if patient has a RASS score of -4, -5 and has a respiratory rate less than 8 breaths/minute. sodium chloride 0.9 % injection 10 mL 10 mL, intravenous, As needed, line care, Starting on Thu04/08/23 at 1216, Preprocedure (RAD), Peripheral Intravenous Catheter and Rapid Infusion Catheter, prior to blood sampling, post blood transfusion or post blood sampling sodium chloride 0.9 % injection 3 mL 3 mL, intravenous, As needed, line care, Starting on Thu04/08/23 at 1216, Preprocedure (RAD), Prior to and following infusion and between multiple consecutive infusions: sodium chloride 0.9 % injection sodium citrate 4 % injection (COMPLETED) As needed, Starting on Thu04/08/23 at 1339, Intra-Op 1339 (Given - Provid er: Dragan Seymour M.D. - Comment: [place])1339 (Given - Provider: Dragan Seymour M.D. - Comment: [place]) documented in this encounter Additional Health Concerns Assessment Noted Time PHQ-9 Depression Total Score: 0 02/24/20 23 1:03 PM CDT documented as of this encounter Care Teams Shoe Repairer Apprentice Relationship Specialty Start Date End Date Allyn Alfredo M.D. NP[place]: [phone] [id number] [phone] PCP - General Family Medicine 04/05/21 documented as of this encounter
--- OUTSIDE RECORDS SUMMARY | 2023-06-24 18:12 | XMS_ITS | Encounter Summary ---
Author Name Unknown Organization [facility] Address [address] [place] [address] Care Team Providers Care Offset Press Operator Name Role Phone Allyn Alfredo M.D. Primary Care Pro vider Reason for Visit * Outpatient (Routine) - Authorized Specialty Diagnoses / Procedures Referred By Esther t Referred To Contact Diagnoses Chronic Kidney Disease Stage 5 Glomerular 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) Diabetes Mellitus Type 2 With Diabetic Nephropathy (HCC) Hypertension And Chronic Kidney Disease Stage 5 (HCC) Hyperparathyroidism Renal Secondary (HCC) Infarction Spleen Procedures ECG Heart rhythm monitor (Holter) Wilfrid Lincoln Jr., D.O. [address] [place] [address] [facility] Referral ID Status Reason Start Date Expiration Date V isits Requested Visits Authorized [id number] Authorized 03/19/2023 03/18/2024 1 1 Encounter Details Date Type Department Care Team (Latest Contact Info) Description 03/20/2023 3:00 PM PRACTICAL NURSING TEACHER Ancillary Procedure Department of Cardiovascular Diseases [place] [address] [place] [phone] Wilfrid Lincoln Jr., D.O. [address] [place] [phone] Chronic Kidney Disease Stage 5 Glomerular 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); Diabetes Mellitus Type 2 With Diabetic Nephropathy (HCC); Hypertension And Chronic Kidney Disease Stage 5 (HCC); Hyperparathyroidism Renal Secondary (HCC); Infarction Spleen Discharge Disposition: Home or Self Care Social [...] How often do you attend chur or buddhist services? 1 to 4 times per year [...] Date Recorded PHQ-2 Score 0 02/23/2023 [facility] - Occupational Stress Questionnaire Answer [...] place to sleep or slept in a jail (including now)? No 09/11/2022 Depression Answer Date Recor ded PHQ-9 Total Score (max 27) 0 02/23 Nutrition Answer Date Recorded Nutrition: EVOO Fat Source Yes 05/04 /2023 On average, how many serving s of [...] Sex Assigned at Female 03/27/2017 3:30 PM PRACTICAL NURSING TEACHER Gender Identity Female 03/27/2017 3:30 PM PRACTICAL NURSING TEACHER Sexual Orientation Straight 03/27/2017 3: 30 PM PRACTICAL NURSING TEACHER documented as of this encounter Progress Notes * Lupe Johnston L.P.N. - 03/20/2023 3:00 PM CST Patient came in today for MoMe placement. Patient instructed not to use any heated blankets or pads, no showers, bathing, or get the MoMe wet. Instructed on how to change MoMe batteries: batteries will be changed out in the AM and PM during the duration of the MoMe, and a new fully charged battery will be placed in the device before returning. The patient was able to show how to change batteries. Patient instructed where and how to return device, and will return MoMe in 24 to 48 hours. TICAL NURSING TEACHER documented in this encounter Plan of Treatment Upcoming Encounters Date Type Department Care Team (Latest Contact Info) Description 07/09/2023 8:20 AM PRACTICAL NURSING TEACHER Appointment Department of Laboratory Medicine in [address] [phone] Allyn Alfredo M.D. [address] [place] [phone] 07/09/2023 9:15 AM PRACTICAL NURSING TEACHER Office Visit Department of Family Medicine, [facility], in [address] [phone] Allyn Alfredo M.D. [address] [place] [phone] 07/16/2023 12:06 PM PRACTICAL NURSING TEACHER Hospital Encounter Post Anesthesia Care Unit in [address] [phone] Cristhian Grant M.B., Ch.B., Ph.D. [address] [place] [phone] 07/16/2023 12:06 PM PRACTICAL NURSING TEACHER - 07/16/2023 3:35 PM PRACTICAL NURSING TEACHER Surgery [facility] ROMB MAIN OR [address] [place] [phone] Cristhian Grant M.B., Ch.B., Ph.D. [address] [place] [phone] CREATION FISTULA RADIOCEPHALIC ARTERIOVENOUS 07/20/2023 11:00 AM CDT Office Visit Department of Orthopedic Surgery in [address] [phone] Cindy Walker D.PLeidaMLeida [address] [place] [phone] Discharge Disposition: Home or Self Care 08/25/2023 3:15 PM CDT Telemedicine Department of Sleep Medicine in [place], [place] [address] [place] [phone] Emilee Emanuel APRN, C.N.P., D.N.P., M.S.N. [address] [place] [phone] Scheduled Procedures Name Priority Associated Diagnoses Date/Ti me CREATION FISTULA RADIOCEPHALIC ARTERIOVENOUS Chronic Kidney Disease Stage 5 Glomerular 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) 07/16/2023 12:06 PM PRACTICAL NURSING TEACHER CREATION FISTULA BRACHIOCEPHALIC ARTERIOVENOUS Chronic Kidney Disease Stage 5 Glomerular 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) 07/16/2023 12:06 PM PRACTICAL NURSING TEACHER documented as of this encounter Procedures Procedure Name Priority Date/Time Associated Diagnosis Comments HOLTER MONITOR - IN CLINIC DISPATCHER RADIOACTIVE WASTE DISPOSAL Routine 03/21/2023 8:09 AM PRACTICAL NURSING TEACHER Chronic Kidney Disease Stage 5 Glomerular 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) Diabetes Mellitus Type 2 With Diabetic Nephropathy (HCC) Hypertension And Chronic Kidney Disease Stage 5 (HCC) Hyperparathyroidism Renal Secondary (HCC) Infarction Spleen documented in this encounter Results * HOLTER MONITOR - IN CLINIC DISPATCHER RADIOACTIVE WASTE DISPOSAL (03/21/2023 8:09 AM PRACTICAL NURSING TEACHER) Min Heart Rate 58 bpm INFOBIONIC MOME Max Heart Rate 119 bpm INFOBIONIC MOME Mean Heart Rate 80 bpm INFOBIONIC MOME VE Total Beats 1439 count INFOBIONIC MOME VE Percent Beats 1 percent INFOBIONIC MOME SVE Total Beats 1732 count INFOBIONIC MOME SVE Percent Beats 2 percent INFOBIONIC MOME AF Count 0 count INFOBIONIC MOME AF Duration 0 duration INFOBIONIC MOME AF [place] 0 percent INFOBIONIC MOME Symptom Count 0 count INFOBIONIC MOME 03/20/2023 2:53 PM PRACTICAL NURSING TEACHER Narrative INFOBIONIC MOME - 03/24/2023 9:21 AM PRACTICAL NURSING TEACHER [place] 1. The basic rhythm was sinus. The [...] 4. No symptomatic event was noted. ?? Cylinder Inspector And Tester: Ann Jay/[email or web address] A Holter monitor with cascade [...] Procedure Note Wilfrid Conley M.D. - 03/24/2023 [place] 1. The basic rhythm was sinus. The [...] morphologies. 4. No symptomatic event was noted. Cylinder Inspector And Tester: Ann Jay/[email or web address] A Holter monitor with cascade to extended monitoring was ordered for theindication of Undifferentiated syncope/spells. During the Holtermonitoring period, the patient did not report syncope with associatedrhythm abnormality (pause >=3 seconds, bradycardia <=30bpm for at least 30 seconds, sustained VT >=110bpm or SVT>=140bpm for >=30 beats). Therefore, the study was cascaded to extended monitoring. Christine Worley Jr.O. CV CARDIAC S ERVICES PROCEDURES INFOBIONIC MOME NA documented in this encounter Visit Diagnoses Diagnosis [...] documented as of this encounter Care Teams Offset Press Operator Relationship Specialty Start Date End Date Allyn Alfredo M.D. [address] [phone] PCP - General Family Medicine 04/05/21 documented as of this encounter
--- OUTSIDE RECORDS SUMMARY | 2023-06-24 18:12 | XMS_ITS | Encounter Summary ---
Author Name Unknown Organization [facility] Address [address] [place] [address] Care Team Providers Care Freight Router Name Role Phone Allyn Alfredo M.D. Primary Care Pro vider Encounter Details Date Type Department Care Team (Late st Contact Info) Description 04/07/2023 Orders Only Division of Nephrology and Hypertension in [place], [place] [address] [place] [address] Wilfrid Lincoln Jr., D.O. [address] [place] [phone] Social History Tobacco Use Types Packs/Day Years [...] How often do you attend chur or scientology services? 1 to 4 times per year [...] Answer Date Recorded PHQ-2 Score 0 02/23/2023 [facility] - Occupational [...] Sex Assigned at Female 03/27/2017 3:30 PM POWDER ROOM ATTENDANT Gender Identity Female 03/27/2017 3:30 PM POWDER ROOM ATTENDANT Sexual Orientation Straight 03/27/2017 3: 30 PM POWDER ROOM ATTENDANT documented as of this encounter Plan of Treatment Upcoming Encounters Date Type Department Care Team (Latest Contact Info) Description 07/09/2023 8:20 AM POWDER ROOM ATTENDANT Appointment Department of Laboratory Medicine in [address] [phone] Allyn Alfredo M.D. [address] [place] [phone] 07/09/2023 9:15 AM POWDER ROOM ATTENDANT Office Visit Department of Family Medicine, [facility], in [address] [phone] Allyn Alfredo M.D. [address] [place] [phone] 07/16/2023 12:06 PM POWDER ROOM ATTENDANT Hospital Encounter Post Anesthesia Care Unit in [address] [phone] Cristhian Grant M.B., Ch.B., Ph.D. [address] [place] [phone] 07/16/2023 12:06 PM POWDER ROOM ATTENDANT - 07/16/2023 3:35 PM POWDER ROOM ATTENDANT Surgery [facility] ROMB MAIN OR [address] [place] [phone] Cristhian Grant M.B., Ch.B., Ph.D. [address] [place] [phone] CREATION FISTULA RADIOCEPHALIC ARTERIOVENOUS 07/20/2023 11:00 AM CDT Office Visit Department of Orthopedic Surgery in [address] [phone] Cindy Walker D.P.M. [address] [place] [phone] Discharge Disposition: Home or Self Care 08/25/2023 3:15 PM CDT Telemedicine Department of Sleep Medicine in [place], [place] [address] [place] [phone] Emilee Emanuel APRN, C.N.P., D.N.P., M.S.N. [address], [place] [phone] Scheduled Procedures Name Priority Associated Diagnoses Date/Ti me CREATION FISTULA RADIOCEPHALIC ARTERIOVENOUS Chronic Kidney Disease Stage 5 Glomerular 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) 07/16/2023 12:06 PM POWDER ROOM ATTENDANT CREATION FISTULA BRACHIOCEPHALIC ARTERIOVENOUS Chronic Kidney Disease Stage 5 Glomerular 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) 07/16/2023 12:06 PM POWDER ROOM ATTENDANT documented as of this encounter Visit Diagnoses Not on filedocumented in this encounter Additional Health Concerns Assessment Noted Time PHQ-9 Depression Total Score: 0 02/24/20 23 1:03 PM CDT documented as of this encounter Care Teams Freight Router Relationship Specialty Start Date End Date Allyn Alfredo M.D. [address] [place] [phone] PCP - General Family Medicine 04/05/21 documented as of this encounter
--- OUTSIDE RECORDS SUMMARY | 2023-06-24 18:12 | XMS_ITS | Encounter Summary ---
Author Name Unknown Organization [facility] Address [address] [place] [address] Care Team Providers Care Mobile Paint Specialist Name Role Phone Allyn Alfredo M.D. Primary [...] Dialysis / High Flow Catheter Exchange Wilfrid Lincoln Jr., D.OLeida [address] [place] [address] [place] [facility] Referral ID Status Reason Start Date Expiration Date Visits Re quested Visits Authorized [id number] Closed 04/07/2023 04/06/2024 1 1 TOWER OPERATOR * Outpatient (Routine) - Closed Specialty Diagnoses [...] Extremity Bilateral Dialysis Mapping Wilfrid Lincoln Jr., D.OLeida [address] [place] [phone] [facility] Referral ID Status Reason Start Date Expiration Date Visits Re quested Visits Authorized [id number] Closed 04/07/2023 04/06/2024 1 1 TOWER OPERATOR * Outpatient (Routine) - Closed Specialty Diagnoses / Procedures Referred By Esther zamorano Referred To Contact Nephrology and Hypertension / Dialysis Diagnoses Chronic Kidney Disease Stage 5 Glomerular 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) Diabetes Mellitus Type 2 With Diabetic Nephropathy (HCC) Hyperparathyroidism Renal Secondary (HCC) Anemia Of Chronic Renal Disease Dialysis Peritoneal Status (HCC) Wilfrid Lincoln Jr., D.O. [address] [place] [phone] [facility] Referral ID Status Reason Start Date Expiration Date Visits Re quested Visits Authorized [id number] Closed 04/07/2023 04/06/2024 1 1 TOWER OPERATOR * Outpatient (Routine) - Closed Specialty Diagnoses / Procedures Referred By Esther zamorano Referred To Contact Nephrology and Hypertension Wilfrid Lincoln Jr., D.O. [address] [place] [phone] [facility] Referral ID Status Reason Start Date Expiration Date Visits Re quested Visits Authorized [id number] Closed 04/07/2023 04/06/2026 1 1 TOWER OPERATOR * Outpatient (Routine) - Closed Specialty Diagnoses / Procedures Referred By Esther zamorano Referred To Contact General Surgery Diagnoses Chronic Kidney Disease Stage 5 Glomerular 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) Diabetes Mellitus Type 2 With Diabetic Nephropathy (HCC) Hyperparathyroidism Renal Secondary (HCC) Anemia Of Chronic Renal Disease Dialysis Peritoneal Status (HCC) Wilfrid Lincoln Jr., D.O. [address] [place] [phone] [facility] Referral ID Status Reason Start Date Expiration Date V isits Requested Visits Authorized [id number] Closed Specialty Services Required 04/07/2023 04/06/2024 1 1 Scheduling Instructions TTS tabitha patient, best on Thu TOWER OPERATOR Encounter Details Date Type Department Care Team (Late st Contact Info) Description 04/07/2023 Orders Only Division of Nephrology and Hypertension in [place], [place] [address] [place] [phone] Wilfrid Lincoln Jr., D.O. [address] [place] [phone] Chronic Kidney Disease Stage 5 Glomerular 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) (Primary Dx); Diabetes Mellitus Type 2 With Diabetic Nephropathy (HCC); Hyperparathyroidism Renal Secondary (HCC); Anemia Of Chronic Renal Disease; Dialysis Peritoneal Status (HCC); Encounter For Other Preprocedural Examination Social History Tobacco Use Types Packs/Day Years [...] often do you attend chur ch or yazdanism services? 1 to 4 times per year 09/11/2022 Do you belong to any clubs o r organizations such as protestant groups, unions, fraternal or athletic groups, or [...] Answer Date Recorded PHQ-2 Score 0 02/23/2023 [facility] - [...] Sex Assigned at Female 03/27/2017 3:30 PM COAL TOWER OPERATOR Gender Identity Female 03/27/2017 3:30 PM COAL TOWER OPERATOR Sexual Orientation Straight 03/27/2017 3: 30 PM COAL TOWER OPERATOR documented as of this encounter Plan of Treatment Upcoming Encounters Date Type Department Care Team (Latest Contact Info) Description 07/09/2023 8:20 AM COAL TOWER OPERATOR Appointment Department of Laboratory Medicine in [address] [phone] Allyn Alfredo M.D. [address] [place] [phone] 07/09/2023 9:15 AM COAL TOWER OPERATOR Office Visit Department of Family Medicine, [facility], in [address] [phone] Allyn Alfredo M.D. [address] [place] [phone] 07/16/2023 12:06 PM COAL TOWER OPERATOR Hospital Encounter Post Anesthesia Care Unit in [place] [phone] [place] [phone] Cristhian Grant M.B., Ch.B., Ph.D. [address] [place] [phone] 07/16/2023 12:06 PM COAL TOWER OPERATOR - 07/16/2023 3:35 PM COAL TOWER OPERATOR Surgery [facility]ST ROMB MAIN OR [address] [place] [phone] Cristhian Grant M.B., Ch.B., Ph.D. [address] [place] [phone] CREATION FISTULA RADIOCEPHALIC ARTERIOVENOUS 07/20/2023 11:00 AM CDT Office Visit Department of Orthopedic Surgery in [address] [phone] Cindy Walker D.PAv [address] [place] [phone] Discharge Disposition: Home or Self Care 08/25/2023 3:15 PM CDT Telemedicine Department of Sleep Medicine in [place], [place] [address] [place] [phone] Emilee Emanuel APRN, C.N.P., D.N.P., M.S.N. [address], [place] [phone] Scheduled Procedures Name Priority Associated Diagnoses Date/Ti me CREATION FISTULA RADIOCEPHALIC ARTERIOVENOUS Chronic Kidney Disease Stage 5 Glomerular 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) 07/16/2023 12:06 PM COAL TOWER OPERATOR CREATION FISTULA BRACHIOCEPHALIC ARTERIOVENOUS Chronic Kidney Disease Stage 5 Glomerular 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) 07/16/2023 12:06 PM COAL TOWER OPERATOR Scheduled Referrals Name Type Priority Associated Diagnoses Order Schedule General Surgery - General consult (clinic) Outpatient Referral Routine Chronic Kidney Disease Stage 5 Glomerular 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) Diabetes Mellitus Type 2 With Diabetic Nephropathy (HCC) Hyperparathyroidism Renal Secondary (HCC) Anemia Of Chronic Renal Disease Dialysis Peritoneal Status (HCC) Expected: 04/07/2023 (Approximate), Expires: 07/08/2024 Nephrology nurse visit (clinic) Outpatient Referral Routine 1 Occurrences starting 04/07/2023 until 07/08/2024 Dialysis - Hemodialysis access consult (clinic) Outpatient Referral Routine Chronic Kidney Disease Stage 5 Glomerular 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) Diabetes Mellitus Type 2 With Diabetic Nephropathy (HCC) Hyperparathyroidism Renal Secondary (HCC) Anemia Of Chronic Renal Disease Dialysis Peritoneal Status (HCC) 1 Occurrences starting 04/07/2023 until 07/08/2024 documented as of this encounter Results * US Upper Extremity Bilateral Dialysis Mapping (04/14/2023 11:58 AM COAL TOWER OPERATOR) Anatomical Region Laterality Modality Upper Extremity, Ultrasound RST LOS, Ultrasound ARZ LOS, Ultrasound FLA LOS, Procedural Bilateral Ultrasound 04/14/2023 12:1 6 PM COAL TOWER OPERATOR Impressions 04/14/2023 12:22 PM COAL TOWER OPERATOR 1. Patent central veins 2. 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 3. Superficial vein diameters as detailed below Narrative 04/14/2023 12:22 PM COAL TOWER OPERATOR EXAM: US UPPER EXTREMITY BILATERAL DIALYSIS [...] diameters as detailed below Wilfrid Lincoln Jr., D.OLeida IMG US ANDREA JOSHI * IR Dialysis / High Flow Catheter Removal (04/08/2023 1:44 PM COAL TOWER OPERATOR) Anatomical Region Laterality Modality Body, Vascular Interventiona l RST LOS, Vascular Interventional ARZ LOS, Vascular Interventional FLA LOS N/A X-Ray Angiography 04/08/2023 1:59 PM COAL TOWER OPERATOR Impressions 04/08/2023 2:07 PM COAL TOWER OPERATOR 1. Removal of the existing poorly functioning right IJ tunneled Palindrome dialysis catheter. 2. Placement of a new right IJ tunneled 14-Mauritanian AshSplit dialysis catheter, which is ready for immediate use. 3. Patient will be placed on a 5 day course of Bactrim for suspected infection at the old right neck venotomy site. She is instructed to follow up with either her nephrology team or primary care provider. NR Narrative 04/08/2023 2:07 PM COAL TOWER OPERATOR EXAM: IR DIALYSIS / HIGH FLOW [...] Placement of a new right IJ tunneled 14-Mauritanian AshSplit dialysiscatheter, which is ready for immediate use. 3. Patient will be placed on a 5 day course of Bactrim for suspectedinfection at the old right neck venotomy site. She is instructed to followup with either her nephrology team or primary care provider. NR Niki Worley Jr. documented in this encounter Visit Diagnoses Diagnosis [...] Noted Time PHQ-9 Depression Total Score: 0 10/16/20 23 1:03 PM CDT documented as of this encounter Care Teams Mobile Paint Specialist Relationship Specialty Start Date End Date Allyn Alfredo M.D. [address] [phone] PCP - General Family Medicine 04/05/21 documented as of this encounter
--- OUTSIDE RECORDS SUMMARY | 2023-06-24 18:12 | XMS_ITS | Encounter Summary ---
Author Name Unknown Organization [facility] Address [address] [place] [address] Care Team Providers Care General Clerk Name Role Phone Allyn Alfredo M.D. Primary Care Pro vider Encounter Details Date Type Department Care Team (Latest Contact Info) Description 03/20/2023 12:40 PM SCRAP BURNER - 03/20/2023 11:59 PM SCRAP BURNER Hospital Encounter Department of Laboratory Medicine in [address] [phone] Wilfrid Lincoln Jr., D.O. [address] [place] [phone] Chronic Kidney Disease Stage 5 Glomerular Filtration [...] often do you attend chur ch or synagogue services? 1 to 4 times [...] Answer Date Recorded PHQ-2 Score 0 02/23/2023 [facility] [place] of Occupat ional Health - Occupational Stress [...] place to sleep or slept in a fci (including now)? No 09/11/2022 Depression Answer Date [...] Sex Assigned at Female 03/27/2017 3:30 PM SCRAP BURNER Gender Identity Female 03/27/2017 3:30 PM SCRAP BURNER Sexual Orientation Straight 03/27/2017 3: 30 PM SCRAP BURNER documented as of this encounter Medications at Time of Discharge Medication Sig Dispensed Refills Start Date End Date aspirin [address] tablet Take 1 tablet by mouth daily. 0 BD Ultra-Fine Short Pen Needle 31 gauge x 5/16 needle Inject 4 Injection under the skin daily. 400 each 3 12/25/2022 blood-glucose meter,continuous (Dexcom G7 Dispute Coordinator) misc Use as directed 3 (three) times [...] CHOLESTEROL 90 tablet 3 01/01/2023 sulfamethoxazole-tri methoprim (BACTRIM) 400-80 mg per tablet Take 1 tablet by mouth daily for 5 days. 5 tablet 0 03/19/2023 03/24/2023 allopurinoL (ZYLOPRIM) 100 mg tablet TAKE 1 TABLET DAILY 90 tablet 3 04/08/2022 05/19/2023 insulin glargine (Basaglar KwikPen U-100 Insulin) 100 unit/mL (3 mL) injection Inject 10 Units under the skin at bedtime. 15 mL 3 03/10/2023 04/28/2023 pramipexole (MIRAPEX) 0.125 mg tablet Take 1 tablet (0.125 mg total) by mouth at bedtime. 90 tablet 3 03/03/2023 05/19/2023 sertraline (ZOLOFT) 25 mg tablet Take 1 tablet (25 mg total) by mouth daily. 90 tablet 3 03/03/2023 05/19/2023 documented as of this encounter Plan of Treatment Upcoming Encounters Date Type Department Care Team (Latest Contact Info) Description 07/09/2023 8:20 AM SCRAP BURNER Appointment Department of Laboratory Medicine in [address] [phone] Allyn Alfredo M.D. [address] [place] [phone] 07/09/2023 9:15 AM SCRAP BURNER Office Visit Department of Family Medicine, [facility], in [address] [phone] Allyn Alfredo M.D. [address] [place] [phone] 07/16/2023 12:06 PM SCRAP BURNER Hospital Encounter Post Anesthesia Care Unit in [address] [phone] Cristhian Grant M.B., Ch.B., Ph.D. [address] [place] [phone] 07/16/2023 12:06 PM SCRAP BURNER - 07/16/2023 3:35 PM SCRAP BURNER Surgery [facility] ROM[facility] MAIN OR [address] [place] [phone] Cristhian Grant M.B., Ch.B., Ph.D. [address] [place] [phone] CREATION FISTULA RADIOCEPHALIC ARTERIOVENOUS 07/20/2023 11:00 AM CDT Office Visit Department of Orthopedic Surgery in [address] [phone] Cindy Walker D.PYassine. [address] [place] [phone] Discharge Disposition: Home or Self Care 08/25/2023 3:15 PM CDT Telemedicine Department of Sleep Medicine in [place], [place] [address] [place] [phone] Emilee Emanuel APRN, C.N.P., D.N.P., M.S.N. [address] [place] [phone] Scheduled Procedures Name Priority Associated Diagnoses Date/Ti me CREATION FISTULA RADIOCEPHALIC ARTERIOVENOUS Chronic Kidney Disease Stage 5 Glomerular 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) 07/16/2023 12:06 PM SCRAP BURNER CREATION FISTULA BRACHIOCEPHALIC ARTERIOVENOUS Chronic Kidney Disease Stage 5 Glomerular 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) 07/16/2023 12:06 PM SCRAP BURNER documented as of this encounter Procedures Procedure Name Priority Date/Time Associated Diagnosis Comments ANCA VASCULITIS PANEL, S Routine 03/20/2023 12:58 PM SCRAP BURNER Chronic Kidney Disease Stage 5 Glomerular 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) Diabetes Mellitus Type 2 With Diabetic Nephropathy (HCC) Hypertension And Chronic Kidney Disease Stage 5 (HCC) Hyperparathyroidism Renal Secondary (HCC) Infarction Spleen IMMUNOGLOBULIN FREE LIGHT CHAINS, S Routine 03/20/2023 12:58 PM SCRAP BURNER Chronic Kidney Disease Stage 5 Glomerular 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) Diabetes Mellitus Type 2 With Diabetic Nephropathy (HCC) Hypertension And Chronic Kidney Disease Stage 5 (HCC) Hyperparathyroidism Renal Secondary (HCC) Infarction Spleen GLOMERULAR BASEMENT MEMBRANE, ABS, IGG, S Routine 03/20/2023 12:58 PM SCRAP BURNER Chronic Kidney Disease Stage 5 Glomerular 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) Diabetes Mellitus Type 2 With Diabetic Nephropathy (HCC) Hypertension And Chronic Kidney Disease Stage 5 (HCC) Hyperparathyroidism Renal Secondary (HCC) Infarction Spleen CRYOGLOBULIN, S Routine 03/20/2023 12:58 PM SCRAP BURNER Chronic Kidney Disease Stage 5 Glomerular 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) Diabetes Mellitus Type 2 With Diabetic Nephropathy (HCC) Hypertension And Chronic Kidney Disease Stage 5 (HCC) Hyperparathyroidism Renal Secondary (HCC) Infarction Spleen DNA DOUBLE-STRANDED (DSDNA) ABS, IGG, S Routine 03/20/2023 12:58 PM SCRAP BURNER Chronic Kidney Disease Stage 5 Glomerular 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) Diabetes Mellitus Type 2 With Diabetic Nephropathy (HCC) Hypertension And Chronic Kidney Disease Stage 5 (HCC) Hyperparathyroidism Renal Secondary (HCC) Infarction Spleen PHOSPHOLIPID (CARDIOLIPIN) ABS, IGG AND IGM, S Routine 03/20/2023 12:58 PM SCRAP BURNER Chronic Kidney Disease Stage 5 Glomerular 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) Diabetes Mellitus Type 2 With Diabetic Nephropathy (HCC) Hypertension And Chronic Kidney Disease Stage 5 (HCC) Hyperparathyroidism Renal Secondary (HCC) Infarction Spleen C-REACTIVE PROTEIN (CRP), S/P Routine 03/20/2023 12:58 PM SCRAP BURNER Chronic Kidney Disease Stage 5 Glomerular 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) Diabetes Mellitus Type 2 With Diabetic Nephropathy (HCC) Hypertension And Chronic Kidney Disease Stage 5 (HCC) Hyperparathyroidism Renal Secondary (HCC) Infarction Spleen documented in this encounter Results * (ABNORMAL) Immunoglobulin Free Light Chains (03/20/2023 12:58 PM SCRAP BURNER) [place] Free Light Chain, S 12.0(H) 0.3300 - 1.94 mg/dL 03/23/2023 8:48 AM SCRAP BURNER ECLR L[place] Free Light Chain, S 9.35(H) 0.5700 - 2.63 mg/dL 03/23/2023 8:48 AM SCRAP BURNER ECLR [place]/Lambda FLC Ratio 1.28 0.2600 - 1.65 03/23/2023 8:48 AM SCRAP BURNER ECLR Blood (Blood, Venous) 03/20/2023 12:58 PM SCRAP BURNER 03/20/2023 9:04 PM SCRAP BURNER Christine Worley Jr.Anay LAB BLOOD AD D-ON [facility] [address] [place] [address], [facility] ECLR [facility] [place] [address] * DNA Double-Stranded (dsDNA) Antibodies, IgG (03/20/2023 12:58 PM SCRAP BURNER) DNA Double-Stranded Ab, IgG, S <1 <=4 (Negative) IU/mL 03/23/2023 10:27 AM SCRAP BURNER ECLR Blood (Blood, Venous) 03/20/2023 12:58 PM SCRAP BURNER 03/20/2023 9:26 PM SCRAP BURNER Wilfrid Lincoln Jr., D.O. LAB BLOOD AD D-ON Performing Organization Address [facility] Co de Phone Number [facility] [address] [place] [phone] [place] [address] ECLR [facility] in [address] [address] * Phospholipid (Cardiolipin) Antibodies, IgG and IgM (03/20/2023 12:58 PM SCRAP BURNER) Phospholipid Ab IgM, S <9.4 <15.0 (Negative) MPL 03/24/2023 11:12 AM SCRAP BURNER SDSC Phospholipid Ab IgG, S <9.4 <15.0 (Negative) GPL 03/24/2023 11:12 AM SCRAP BURNER [facility] Blood (Blood, Venous) 03/20/2023 12:58 PM SCRAP BURNER 03/23/2023 8:11 AM SCRAP BURNER Wilfrid Lincoln Jr., D.O. LAB BLOOD AD D-ON [facility] [address] [place] [address] [facility] [address] [place] [address] * Glomerular Basement Membrane Antibodies, IgG (03/20/2023 12:58 PM SCRAP BURNER) [facility] Glomerular Basement Membrane IgG Ab <0.2 <1.0 (Negative) U 03/21/2023 9:49 AM SCRAP BURNER [facility] Blood (Blood, Venous) 03/20/2023 12:58 PM SCRAP BURNER 03/21/2023 7:30 AM SCRAP BURNER Wilfrid Lincoln Jr., D.O. LAB BLOOD AD D-ON Performing Organization Address City/[facility] Co de Phone Number [facility] [address] [place] [address] [facility] [address] [place] [address] * Cryoglobulin (03/20/2023 12:58 PM SCRAP BURNER) [facility] Cryoglobulin , S Negative. This test is negative at 24 hours. All samples are held and reviewed again at 7 days. If delayed precipitation occurs after 7 days, Immunofixation will be performed and an additional report will follow. Negative %ppt 03/24/2023 9:57 AM SCRAP BURNER [facility] Blood (Blood, Venous) 03/20/2023 12:58 PM SCRAP BURNER 03/23/2023 9:48 AM SCRAP BURNER Wilfrid Lincoln Jr., D.O. LAB BLOOD NO N ADD-ON Performing Organization Address [facility] Co de Phone Number [facility] [address] [place] [address] [facility] [address] [place] [address] [place] [place] [address] * (ABNORMAL) CRP (C-Reactive Protein) (03/20/2023 12:58 PM SCRAP BURNER) [facility] C-Reactive Protein (CRP), P 18.2(H) <5.0 mg/L 03/20/2023 1:23 PM SCRAP BURNER CNFL Blood (Blood, Venous) 03/20/2023 12:58 PM SCRAP BURNER 03/20/2023 1:00 PM SCRAP BURNER Wilfrid Lincoln Jr., D.O. LAB BLOOD AD D-ON [facility] [address] [place] [address], [facility] CNFL [facility] in [address] [address] * ANCA (Antineutrophil Cytoplasmic Antibodies) Vasculitis Panel (03/20/2023 12:58 PM SCRAP BURNER) Myeloperoxidase Ab, S <0.2 <0.4 (Negative ) U 03/21/2023 9:49 AM SCRAP BURNER SDSC Proteinase 3 Ab (PR3), S <0.2 <0.4 (Negative ) U 03/21/2023 9:49 AM SCRAP BURNER SDSC Blood (Blood, Venous) 03/20/2023 12:58 PM SCRAP BURNER 03/21/2023 7:30 AM SCRAP BURNER Wilfrid Lincoln Jr., D.O. LAB BLOOD AD D-ON [facility] [address] [place] [address] [facility] [address] [place] [address] documented in this encounter Visit Diagnoses Diagnosis [...] documented as of this encounter Care Teams General Clerk Relationship Specialty Start Date End Date Allyn Alfredo M.D. [address] [place] [phone] PCP - General Family Medicine 04/05/21 documented as of this encounter
--- OUTSIDE RECORDS SUMMARY | 2023-06-24 18:12 | XMS_ITS | Encounter Summary ---
Author Name Unknown Organization [facility] Address [address] [place] [address] Care Team Providers Care Shoemaker Apprentice Name Role Phone Allyn Alfredo M.D. Primary Care Pro vider Reason for Visit * Reason Onset Date Comments Remote Patient Monitoring 03/24/2023 Alert Notification: Unable to Begin Service - Patient Declining Cascaded Service Encounter Details Date Type Department Care Team (Latest Contact Info) Description 03/24/2023 Clinical Communication Division of Nephrology and Hypertension in [place], [place] [address] [place] [phone] Wilfrid Lincoln Jr., D.O. [address] [place] [address] Remote Patient Monitoring (Alert Notification: Unable to Begin Service - Patient Declining Cascaded Service/) Social History Tobacco Use Types Packs/Day Years [...] often do you attend chur ch or restorationism services? 1 to 4 times per year 09/11/2022 Do you belong to any clubs o r organizations such as yarsanism groups, unions, fraternal or athletic groups, or [...] Answer Date Recorded PHQ-2 Score 0 02/23/2023 [facility] [place] of Occupat ional Health - Occupational Stress [...] place to sleep or slept in a alf (including now)? No 09/11/2022 Depression Answer Date [...] Assigned at Female 03/27/2017 3:30 PM ASSOCIATE PROFESSOR OF MUSIC Gender Identity Female 03/27/2017 3:30 PM ASSOCIATE PROFESSOR OF MUSIC Sexual Orientation Straight 03/27/2017 3: 30 PM ASSOCIATE PROFESSOR OF MUSIC documented as of this encounter Miscellaneous Notes * Telephone Encounter - Evelyn Mei CRAT - 03/24/2023 11:22 AM ASSOCIATE PROFESSOR OF MUSIC Title: Unable to Begin Service - Patient Declining Cascaded Service A message from the Remote Monitoring Team: Concetta Medina wore a holter monitor with cascade to extended monitoring for the indication of f Undifferentiated syncope/spells from 03/20/2023 - 03/21/2023. During the Holter monitoring period, the patient did not experience syncope with associated rhythm abnormality (pause >=3 seconds, bradycardia <=30 bpm for at least 30 seconds, sustained VT >=110 bpm or SVT >=140 bpm for >=30 beats)., therefore the study cascaded to extended monitoring. Our team has been in contact with the patient to inform of 7 day cascade and resume monitoring. The patient has declined the service, expressing did not want to wear it. The service has been cancelled. If there is a change in the patient's interest in completing the service, please place a new order. For questions, please reply to this notification or call us at [phone]). CIATE PROFESSOR OF MUSIC documented in this encounter Plan of Treatment Upcoming Encounters Date Type Department Care Team (Latest Contact Info) Description 07/09/2023 8:20 AM ASSOCIATE PROFESSOR OF MUSIC Appointment Department of Laboratory Medicine in [address] [phone] Allyn Alfredo M.D. [address] [place] [phone] 07/09/2023 9:15 AM ASSOCIATE PROFESSOR OF MUSIC Office Visit Department of Family Medicine, [facility], in [address] [phone] Allyn Alfredo M.D. [address] [place] [phone] 07/16/2023 12:06 PM ASSOCIATE PROFESSOR OF MUSIC Hospital Encounter Post Anesthesia Care Unit in [place], [place] [address] [place] [phone] Cristhian Grant M.B., Ch.B., Ph.D. [address] [place] [phone] 07/16/2023 12:06 PM ASSOCIATE PROFESSOR OF MUSIC - 07/16/2023 3:35 PM ASSOCIATE PROFESSOR OF MUSIC Surgery RST ROMB MAIN OR [address] [place] [phone] Cristhian Grant M.B., Ch.B., Ph.D. [address] [place] [phone] CREATION FISTULA RADIOCEPHALIC ARTERIOVENOUS 07/20/2023 11:00 AM CDT Office Visit Department of Orthopedic Surgery in [address] [phone] Cindy Walker, Jayden.P.M. [address] [place] [phone] Discharge Disposition: Home or Self Care 08/25/2023 3:15 PM CDT Telemedicine Department of Sleep Medicine in [place], [place] [address] [place] [phone] Emilee Emanuel APRN, C.N.P., D.N.P., M.S.N. [address] [place] [phone] Scheduled Procedures Name Priority Associated Diagnoses Date/Ti me CREATION FISTULA RADIOCEPHALIC ARTERIOVENOUS Chronic Kidney Disease Stage 5 Glomerular 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) 07/16/2023 12:06 PM ASSOCIATE PROFESSOR OF MUSIC CREATION FISTULA BRACHIOCEPHALIC ARTERIOVENOUS Chronic Kidney Disease Stage 5 Glomerular 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) 07/16/2023 12:06 PM ASSOCIATE PROFESSOR OF MUSIC documented as of this encounter Visit Diagnoses Not on filedocumented in this encounter Additional Health Concerns Assessment Noted Time PHQ-9 Depression Total Score: 0 02/24/20 23 1:03 PM CDT documented as of this encounter Care Teams Shoemaker Apprentice Relationship Specialty Start Date End Date Allyn Alfredo M.D. [address] [phone] PCP - General Family Medicine 04/05/21 documented as of this encounter
--- OUTSIDE RECORDS SUMMARY | 2023-06-24 18:12 | XMS_ITS | Encounter Summary ---
Author Name Unknown Organization [facility] Address [address] [place] [address] Care Team Providers Care Hot Mill Observer Name Role Phone Allyn Alfredo M.D. Primary Care Pro vider Reason for Visit * Outpatient (Routine) - Closed Specialty Diagnoses / Procedures Referred By Esther zamorano Referred To Contact Diagnoses Infarction Spleen Procedures Escalated MCT - TECH USE ONLY Wilfrid Lincoln Jr., D.OLeida [address] [place] [address] [facility] Referral ID Status Reason Start Date Expiration Date Visits Re quested Visits Authorized [id number] Closed 03/24/2023 03/23/2024 1 1 Encounter Details Date Type Department Care Team (Latest Contact Info) Description 03/24/2023 9:35 AM GARBAGE MAN - 03/24/2023 11:59 PM [facility] Hospital Encounter Division of Cardiovascular Diseases in [place], [place] [address] [place] [address] Wilfrid Lincoln Jr., D.O. [address] [place] [phone] Infarction Spleen Discharge Disposition: Home or Self [...] How often do you attend chur or rastafari services? 1 to 4 times per year 09/11/2022 Do you belong to any clubs o r organizations such as yazdanism groups, unions, fraternal or athletic groups, or [...] Answer Date Recorded PHQ-2 Score 0 02/23/2023 [place] of Occupat ional Health - Occupational Stress [...] place to sleep or slept in a correction (including now)? No 09/11/2022 Depression Answer Date [...] Sex Assigned at Female 03/27/2017 3:30 PM GARBAGE MAN Gender Identity Female 03/27/2017 3:30 PM GARBAGE MAN Sexual Orientation Straight 03/27/2017 3: 30 PM GARBAGE MAN documented as of this encounter Medications at Time of Discharge Medication Sig Dispensed Refills Start Date End Date aspirin [address] tablet Take 1 tablet by mouth daily. 0 BD Ultra-Fine Short Pen Needle 31 gauge x 5/16 needle Inject 4 Injection under the skin daily. 400 each 3 12/25/2022 blood-glucose meter,continuous (Dexcom G7 Marriage Therapist) misc Use as directed 3 (three) times [...] (Latest Contact Info) Description 07/09/2023 8:20 AM GARBAGE MAN Appointment Department of Laboratory Medicine in [address] [phone] Allyn Alfredo M.D. [address] [place] [phone] 07/09/2023 9:15 AM GARBAGE MAN Office Visit Department of Family Medicine, [facility], in [address] [phone] Allyn Alfredo M.D. [address] [place] [phone] 07/16/2023 12:06 PM GARBAGE MAN Hospital Encounter Post Anesthesia Care Unit in [address] [phone] Cristhian Grant M.B., Ch.B., Ph.D. [address] [place] [phone] 07/16/2023 12:06 PM GARBAGE MAN - 07/16/2023 3:35 PM GARBAGE MAN Surgery RST ROMB MAIN OR [address] [place] [phone] Cristhian Grant M.B., Ch.B., Ph.D. [address] [place] [phone] CREATION FISTULA RADIOCEPHALIC ARTERIOVENOUS 07/20/2023 11:00 AM CDT Office Visit Department of Orthopedic Surgery in [address] [phone] Cindy Walker D.P.M. [address] [place] [phone] Discharge Disposition: Home or Self Care 08/25/2023 3:15 PM CDT Telemedicine Department of Sleep Medicine in [place], [place] [address] [place] [phone] Emilee Emanuel APRN, C.N.P., D.N.P., M.S.N. [address] [phone] Scheduled Procedures Name Priority Associated Diagnoses Date/Ti me CREATION FISTULA RADIOCEPHALIC ARTERIOVENOUS Chronic Kidney Disease Stage 5 Glomerular 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) 07/16/2023 12:06 PM GARBAGE MAN CREATION FISTULA BRACHIOCEPHALIC ARTERIOVENOUS Chronic Kidney Disease Stage 5 Glomerular 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) 07/16/2023 12:06 PM GARBAGE MAN documented as of this encounter Visit Diagnoses Diagnosis Infarction Spleen Chronic Kidney Disease Stage 5 Glomerular 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) documented in this encounter Additional Health Concerns Assessment Noted Time PHQ-9 Depression Total Score: 0 02/24/20 23 1:03 PM CDT documented as of this encounter Care Teams Hot Mill Observer Relationship Specialty Start Date End Date Allyn Alfredo M.D. [address] [place] [phone] PCP - General Family Medicine 04/05/21 documented as of this encounter
--- OUTSIDE RECORDS SUMMARY | 2023-06-24 18:13 | XMS_ITS | Encounter Summary ---
Author Name Unknown Organization [facility] Address [address] [place] [address] Care Team Providers Care Insurance Agents Supervisor Name Role Phone Allyn Alfredo M.D. Primary Care Pro vider Reason for Referral * Outpatient (Routine) - Authorized Specialty Diagnoses / Procedures Referred By Esther zamorano Referred To Contact Orthopedic Surgery Diagnoses Diabetes Mellitus Type 2 With Diabetic Neuropathy Hyperglycemic (HCC) Onychomycosis Pain Limb Generalized Diabetes Mellitus Type 2 With Diabetic Nephropathy (HCC) Cindy Walker DLeidaP.M. [address] [place] [address] [facility] Region Referral ID Status Reason Start Date Expiration Date V isits Requested Visits Authorized [id number] Authorized 03/16/2023 03/15/2026 1 1 AKER Reason for Visit * Reason Comments Nail Problem Here for nail care Nail Problem * Outpatient (Routine) - Closed Specialty Diagnoses / Procedures Referred By Esther zamorano Referred To Contact Orthopedic Surgery Diagnoses Diabetes Mellitus Type 2 With Diabetic Neuropathy Hyperglycemic (HCC) Onychomycosis Pain Limb Generalized Diabetes Mellitus Type 2 With Diabetic Nephropathy (HCC) Cindy Walker D.P.MLeida [address] [place] [address] [facility] Region Referral ID Status Reason Start Date Expiration Date Visits Re quested Visits Authorized [id number] Closed 12/15/2022 12/14/2025 1 1 Encounter Details Date Type Department Care Team (Latest Contact Info) Description 03/16/2023 11:00 AM PINMAKER Office Visit Department of Orthopedic Surgery in [address] [phone] Cindy Walker D.PLeidaMLeida [address] [place] [phone] Diabetes Mellitus Type 2 With Diabetic Neuropathy Hyperglycemic (HCC); Onychomycosis; Pain Limb Generalized; Diabetes Mellitus Type 2 With Diabetic Nephropathy (HCC) Discharge Disposition: Home or Self Care Social History Tobacco Use Types Packs/Day Years Used Date Smoking Tobacco: Former Cigarettes 0 Q uit: 2012 Smokeless Tobacco: Never Alcohol Use Standard Drinks/Week [...] week 09/11/2022 How often do you attend [facility] or sabianist services? 1 to 4 times per year 09/11/2022 Do you belong to any clubs o r organizations such as mormonism groups, unions, fraternal or athletic groups, or [...] Answer Date Recorded PHQ-2 Score 0 02/23/2023 [facility] - Occupational Stress Questionnaire Answer Date [...] Sex Assigned at Female 03/27/2017 3:30 PM PINMAKER Gender Identity Female 03/27/2017 3:30 PM PINMAKER Sexual Orientation Straight 03/27/2017 3: 30 PM PINMAKER documented as of this encounter Progress Notes * Cindy Walker D.P.MLeida - 03/16/2023 11:00 AM CST SUBJECTIVE CHIEF COMPLAINT / REASON FOR VISIT Chief Complaint Patient presents with Right Foot - Nail Problem Here for nail care Left Foot - Nail Problem HISTORY OF PRESENT ILLNESS Concetta Medina is a 77 y.o. female seen for necessary foot care and complaint of painful thickened nails bilaterally. OBJECTIVE PHYSICAL EXAMINATION DP and PT pulses nonpalpable bilaterally. Skin is thin, shiny, frail, xerotic, ruborous, cold, and atrophic bilaterally with absent digital hair growth. Nails are elongated, thick,dystrophic, incurvated, and painful times 10 with lysis, crumbling, and subungual debris. ASSESSMENT #1 Diabetes Mellitus Type 2 With Diabetic Neuropathy Hyperglycemic (HCC) #2 Onychomycosis #3 Pain Limb Generalized #4 Diabetes Mellitus Type 2 With Diabetic Nephropathy (HCC) PLAN Nails debrided x 10. Patient to follow up in 13 weeks for necessary foot care, sooner if questions or problems AKER documented in this encounter Plan of Treatment Upcoming Encounters Date Type Department Care Team (Latest Contact Info) Description 07/09/2023 8:20 AM PINMAKER Appointment Department of Laboratory Medicine in [address] [phone] Allyn Alfredo M.D. [address] [place] [phone] 07/09/2023 9:15 AM PINMAKER Office Visit Department of Family Medicine, [facility], in [address] [phone] Allyn Alfredo M.D. [address] [place] [phone] 07/16/2023 12:06 PM PINMAKER Hospital Encounter Post Anesthesia Care Unit in [address] [phone] Cristhian Grant M.B., Ch.B., Ph.D. [address] [place] [phone] 07/16/2023 12:06 PM PINMAKER - 07/16/2023 3:35 PM PINMAKER Surgery [facility] MAIN OR [address] [place] [phone] Cristhian Grant M.B., Ch.B., Ph.D. [address] [place] [phone] CREATION FISTULA RADIOCEPHALIC ARTERIOVENOUS 07/20/2023 11:00 AM CDT Office Visit Department of Orthopedic Surgery in [address] [phone] Cindy Walker, ChristinePLeidaM. [address] [place] [address] Discharge Disposition: Home or Self Care 08/25/2023 3:15 PM CDT Telemedicine Department of Sleep Medicine in [place], [place] [address], [place] [phone] Emilee Emanuel APRN, C.N.P., D.N.P., M.S.N. [address] [place] [phone] Scheduled Procedures Name Priority Associated Diagnoses Date/Ti me CREATION FISTULA RADIOCEPHALIC ARTERIOVENOUS Chronic Kidney Disease Stage 5 Glomerular 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) 07/16/2023 12:06 PM PINMAKER CREATION FISTULA BRACHIOCEPHALIC ARTERIOVENOUS Chronic Kidney Disease Stage 5 Glomerular 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) 07/16/2023 12:06 PM PINMAKER Scheduled Referrals Name Type Priority Associated Diagnoses Orde r Schedule Orthopedic Surgery office visit (clinic) Outpatient Referral Routine Diabetes Mellitus Type 2 With Diabetic Neuropathy (HCC) Onychomycosis Pain Limb Generalized Diabetes Mellitus Type 2 With Diabetic Nephropathy (HCC) Expected: 06/16/2023 (Approximate), Expires: 06/16/2024 documented as of this encounter Visit Diagnoses Diagnosis Diabetes Mellitus Type 2 With Diabetic Neuropathy Hyperglycemic (HCC) Onychomycosis Pain Limb Generalized Diabetes Mellitus Type 2 With Diabetic Nephropathy (HCC) Chronic Kidney Disease Stage 5 Glomerular 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) documented in this encounter Additional Health Concerns Assessment Noted Time PHQ-9 Depression Total Score: 0 02/24/20 23 1:03 PM CDT documented as of this encounter Care Teams Insurance Agents Supervisor Relationship Specialty Start Date End Date Allyn Alfredo M.D. [address] [place] [phone] PCP - General Family Medicine 04/05/21 documented as of this encounter
--- OUTSIDE RECORDS SUMMARY | 2023-06-24 18:13 | XMS_ITS | Encounter Summary ---
Author Name Unknown Organization [facility] Address [address] [place] [id number] Care Team Providers Care Airport Representative Name Role Phone Allyn Alfredo M.D. Primary Care Pro vider Reason for Referral * MRI/CAT/PET Scan (Routine) - Closed Specialty Diagnoses / Procedures Referred By Esther zamorano Referred To Contact Radiology Diagnoses Nausea And Vomiting Procedures CT Abdomen Pelvis without and with IV Contrast Wilfrid Lincoln Jr., D.O. [address] [place] [phone] [facility] Region Referral ID Status Reason Start Date Expiration Date Visits Re quested Visits Authorized [id number] Closed 03/13/2023 03/12/2024 1 1 Encounter Details Date Type Department Care Team (Late st Contact Info) Description 03/13/2023 Orders Only Division of Nephrology and Hypertension in [place], [place] [address] [place] [phone] Wilfrid Lincoln Jr., D.O. [address] [place] [phone] Hypertension And Chronic Kidney Disease Stage 5 (HCC) (Primary Dx); Diabetes Mellitus Type 2 With Diabetic Nephropathy (HCC); Anemia Of Chronic Renal Failure; Nausea; Loss Weight Abnormal; Weakness General; Pain Generalized Abdominal; Nausea And Vomiting Social History Tobacco Use Types Packs/Day Years [...] often do you attend chur ch or tenriism services? 1 to 4 times per year 09/11/2022 Do you belong to any clubs o r organizations such as scientologist groups, unions, fraternal or athletic groups, or [...] Date Recorded PHQ-2 Score 0 02/23/2023 [facility] - Occupational Stress Questionnaire Answer Date [...] place to sleep or slept in a longterm (including now)? No 09/11/2022 Depression Answer Date [...] Sex Assigned at Female 03/27/2017 3:30 PM TRENCH DIGGING MACHINE OPERATOR Gender Identity Female 03/27/2017 3:30 PM TRENCH DIGGING MACHINE OPERATOR Sexual Orientation Straight 03/27/2017 3: 30 PM TRENCH DIGGING MACHINE OPERATOR documented as of this encounter Plan of Treatment Upcoming Encounters Date Type Department Care Team (Latest Contact Info) Description 07/09/2023 8:20 AM TRENCH DIGGING MACHINE OPERATOR Appointment Department of Laboratory Medicine in [address] [phone] Allyn Alfredo M.D. [address] [place] [phone] 07/09/2023 9:15 AM TRENCH DIGGING MACHINE OPERATOR Office Visit Department of Family Medicine, [facility], in [address] [phone] Allyn Alfredo M.D. [address] [place] [phone] 07/16/2023 12:06 PM TRENCH DIGGING MACHINE OPERATOR Hospital Encounter Post Anesthesia Care Unit in [address] [phone] Cristhian Grant M.B., Ch.B., Ph.D. [address] [place] [phone] 07/16/2023 12:06 PM TRENCH DIGGING MACHINE OPERATOR - 07/16/2023 3:35 PM TRENCH DIGGING MACHINE OPERATOR Surgery [facility] MAIN OR [address] [place] [phone] Cristhian Grant M.B., Ch.B., Ph.D. [address] [place] [phone] CREATION FISTULA RADIOCEPHALIC ARTERIOVENOUS 07/20/2023 11:00 AM CDT Office Visit Department of Orthopedic Surgery in [address] [phone] Cindy Walker, ChristinePLeidaMLeida [address] [place] [phone] Discharge Disposition: Home or Self Care 08/25/2023 3:15 PM CDT Telemedicine Department of Sleep Medicine in [place], [place] [address] [place] [phone] Emilee Emanuel APRN, C.N.P., D.N.P., M.S.N. [address] [place] [phone] Scheduled Procedures Name Priority Associated Diagnoses Date/Ti me CREATION FISTULA RADIOCEPHALIC ARTERIOVENOUS Chronic Kidney Disease Stage 5 Glomerular 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) 07/16/2023 12:06 PM TRENCH DIGGING MACHINE OPERATOR CREATION FISTULA BRACHIOCEPHALIC ARTERIOVENOUS Chronic Kidney Disease Stage 5 Glomerular 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) 07/16/2023 12:06 PM TRENCH DIGGING MACHINE OPERATOR documented as of this encounter Results * CT Abdomen Pelvis without and with IV Contrast (03/18/2023 3:50 PM TRENCH DIGGING MACHINE OPERATOR) Anatomical Region Laterality Modality Abdomen, Pelvis, Abdominal R ST LOS, Abdominal ARZ LOS, Abdominal FLA LOS N/A Computed Tomography 03/18/2023 3:44 PM TRENCH DIGGING MACHINE OPERATOR Impressions 03/18/2023 4:59 PM TRENCH DIGGING MACHINE OPERATOR 1. Bilateral renal cysts, some of which contain hemorrhagic/proteinaceous debris and a 9 mm Bosniak 2F cyst arising from the posterior interpolar region of the right kidney. 2. Small wedge-shaped defect in the periphery of the spleen, suspicious for a splenic infarct. 3. CT findings suspicious for urinary bladder cystitis. 4. Slight aneurysmal dilatation of the infrarenal abdominal aorta measuring up to 30 mm. 5. Additional nonacute/chronic findings as detailed. Narrative 03/18/2023 4:59 PM TRENCH DIGGING MACHINE OPERATOR EXAM: CT ABDOMEN PELVIS WITHOUT AND WITH IV CONTRAST COMPARISON: None FINDINGS: Atrophic bilateral [place] kidneys with cysts. Some of these cysts contain hemorrhagic/proteinaceous debris and a 9 mm cyst within the posterior interpolar region of the right kidney which contains a few tiny thin septations and a punctate peripheral calcification (series 14, image 83; series 13, image 57). No solid renal mass. Tiny nonobstructing stones in the proximal right ureter. Diffuse thickening and trabeculation of the urinary bladder wall with multiple small diverticula and mild mucosal hyperenhancement. Wedge-shaped hypoattenuating defect in the periphery of the spleen (series 8, image 20) could represent a small splenic infarct. Slight thickening of both adrenal glands without a discrete nodule. No bowel obstruction. No acute inflammatory changes about the bowel. Normal appendix. Advanced calcified atherosclerotic disease with slight aneurysmal dilatation of the infrarenal abdominal aorta measuring up to 30 mm. Peritoneal dialysis catheter. Trace ascites. No adenopathy. Posterior decompression with eyad and pedicle screw fixation at L4-L5. Scattered moderate musculoskeletal degenerative changes. 6 mm solid nodule in the left lung base (series 8, image 14). A few calcified granulomas in the visualized lower lungs. Findings discussed with Christine Blank Jr.OLeida by Bala Love M.D. at 4:57 PM TRENCH DIGGING MACHINE OPERATOR on 03/18/2023. Procedure Note Bala Love M.D. - 03/18/2023 EXAM: CT ABDOMEN PELVIS WITHOUT AND WITH IV CONTRAST COMPARISON: None FINDINGS: Atrophic bilateral [place] kidneys with cysts. Some of these cysts containhemorrhagic/proteinaceous debris and a 9 mm cyst within the posteriorinterpolar region of the right kidney which contains a few tiny thinseptations and a punctate peripheral calcification (series 14, image 83; series 13, image 57). No solid renalmass. Tiny nonobstructing stones in the proximal right ureter. Diffusethickening and trabeculation of the urinary bladder wall with multiplesmall diverticula and mild mucosal hyperenhancement. Wedge-shaped hypoattenuating defect in the periphery of the spleen (series8, image 20) could represent a small splenic infarct. Slight thickening ofboth adrenal glands without a discrete nodule. No bowel obstruction. No acute inflammatory changes about the bowel.Normal appendix. Advanced calcified atherosclerotic disease with slight aneurysmaldilatation of the infrarenal abdominal aorta measuring up to 30 mm.Peritoneal dialysis catheter. Trace ascites. No adenopathy. Posterior decompression with eyad and pedicle screw fixation at L4-L5.Scattered moderate musculoskeletal degenerative changes. 6 mm solid nodule in the left lung base (series 8, image 14). A fewcalcified granulomas in the visualized lower lungs. Findings discussed with Wilfrid Lincoln Jr., D.O. by Bala Love M.D.at 4:57 PM TRENCH DIGGING MACHINE OPERATOR on 03/18/2023. IMPRESSION: 1. Bilateral renal cysts, some of which contain hemorrhagic/proteinaceousdebris and a 9 mm Bosniak 2F cyst arising from the posterior interpolarregion of the right kidney. 2. Small wedge-shaped defect in the periphery of the spleen, suspiciousfor a splenic infarct. 3. CT findings suspicious for urinary bladder cystitis. 4. Slight aneurysmal dilatation of the infrarenal abdominal aortameasuring up to 30 mm. 5. Additional nonacute/chronic findings as detailed. Wilfrid Lincoln Jr., D.O. IMG CT PROCE DURES documented in this encounter Visit Diagnoses Diagnosis Hypertension And Chronic Kidney Disease Stage 5 (HCC)- Primary Diabetes Mellitus Type 2 With Diabetic Nephropathy (HCC) Anemia Of Chronic Renal Failure Nausea Loss Weight Abnormal Weakness General Pain Generalized Abdominal Nausea And Vomiting Nausea And Vomiting Chronic Kidney Disease Stage 5 Glomerular 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) documented in this encounter Additional Health Concerns Assessment Noted Time PHQ-9 Depression Total Score: 0 02/24/20 23 1:03 PM CDT documented as of this encounter Care Teams Airport Representative Relationship Specialty Start Date End Date Allyn Alfredo M.D. [address] [phone] PCP - General Family Medicine 04/05/21 documented as of this encounter
--- OUTSIDE RECORDS SUMMARY | 2023-06-24 18:13 | XMS_ITS | Encounter Summary ---
Author Name Unknown Organization [facility] Address [address] [place] [address] Care Team Providers Care Cloth Weigher Name Role Phone Allyn Alfredo M.D. Primary Care Pro vider Reason for Visit * Reason Comments Post Hospital Follow-up Shortness of nba ath with exertion worse since hospitalization. Loss of appetite. Increased fatigue. On week 3 of hemodialysis through [facility] (previously on home dialysis). * Appointment Request (Routine) - Closed Specialty Diagnoses / Procedures Referred By Esther zamorano Referred To Contact Family Medicine Referral ID Status Reason Start Date Expiration Date Visits Re quested Visits Authorized [id number] Closed 02/27/2023 02/27/2024 1 1 Encounter Details Date Type Department Care Team ([facility] st Contact Info) Description 03/10/2023 2:15 PM CDT Office Visit Department of Family Medicine, [facility], in [address] [phone] Allyn Alfredo M.D. [address] [place] [phone] Weakness General (Primary Dx); Shortness Of Breath; Hypertension And Chronic Kidney Disease Stage 5 (HCC); Hemodialysis Status (HCC); Anemia Of Chronic Renal Failure; Diabetes Mellitus Type 2 With Diabetic Nephropathy [...] often do you attend chur ch or rastafari services? 1 to 4 times per year 09/11/2022 Do you belong to any clubs o r organizations such as druze groups, unions, fraternal or athletic groups, or [...] Answer Date Recorded PHQ-2 Score 0 02/23/2023 [facility] ional [facility] - [...] place to sleep or slept in a intermediate (including now)? No 09/11/2022 Depression Answer Date [...] Sex Assigned at Female 03/27/2017 3:30 PM ENTERPRISE APPLICATION DEVELOPER Gender Identity Female 03/27/2017 3:30 PM ENTERPRISE APPLICATION DEVELOPER Sexual Orientation Straight 03/27/2017 3: 30 PM ENTERPRISE APPLICATION DEVELOPER documented as of this encounter Last Filed Vital Signs Vital Sign Reading Time Taken Comments Blood Pressure 122/69 03/10/2023 2:21 PM CDT Pulse 81 03/10/2023 2:21 PM CDT Temperature 36.6 ??C (97.9 ??F) 03/10/2023 2:13 PM CD T Respiratory Rate 18 03/10/2023 2:13 PM CDT Oxygen Saturation 95% 03/10/2023 2:13 PM CDT Inhaled Oxygen Concentration - - Weight 86.2 kg (190 lb 0.6 oz) 03/10/2023 2:13 P M CDT Height 163 cm (5' 4.17) 03/10/2023 2:13 PM CDT Body Mass Index 32.44 03/10/2023 2:13 PM CDT documented in this encounter Progress Notes * Allyn Alfredo M.D. - 03/10/2023 2:15 PM CDT The patient verbally consented to an audio recording of their visit to assist with the completion of documentation. The recording is not retained after the visit is summarized. SUBJECTIVE CHIEF COMPLAINT / REASON FOR VISIT Concetta Medina is a 77 y.o. female who presents for evaluation of Post Hospital Follow-up (Shortnessof breath with exertion worse since hospitalization. Loss of appetite. Increased fatigue. On week 3of hemodialysis through [facility] (previously on home dialysis).). HISTORY OF PRESENT ILLNESS Siobhan presents today for post hospital followup. She is accompanied by her daughter, Radha. She was hospitalized for generalized weakness and transitioned from peritoneal dialysis to hemodialysis. Shewas discharged on 03/01/2023. RN follow up phone call occurred on 03/02/2023. Siobhan reports ongoing nausea and fatigue since being home. She is able to stand for about 5 minutesand then needs to sit down and rest. She feels lightheaded and feels like her legs will give out. She also has dyspnea with any activity but is okay at rest. She has not noticed any dyspnea at night.She reports her back pain has actually been improved. She has had no chest pain, heart racing, or skipped beats. She has not noticed any ankle swelling. No rhinorrhea. She reports her appetite has been poor. She is on a renal diet and will be receiving meals from [employer] and also gets Meals On Wheels. Her daughter has been helping with her meals as well. She sometimes gets nauseous when she tries to eat. She likes oatmeal. Her weight has been stable. Blood sugars have stayed well below 200. She has had a couple low blood sugar readings, reportedly around 100. She has been taking Basaglar 10 units. She reports both constipation and diarrhea. She follows fluid restrictions and is urinating very little. Since discharge from the hospital, she has been on hemodialysis 3 days per week. She underwent hemodialysis earlier today. She is unsure how long she will need to continue with hemodialysis. She saw Dr. Lincoln most recently 1 week ago on 03/03, and they suspect followup with him will be once a month. Her hemoglobin had been low in the hospital, and she thinks her last Aranesp injection was before her hospital admission. She is not receiving home health at this time. She tells me that her home health worker currently has COVID, so he has been unable to come to her. She is utilizing [facility] in [place]. REVIEW OF SYSTEMS A brief review of systems was negative except for that mentioned in the history of present illness. Current Outpatient Medications Medication Sig allopurinoL (ZYLOPRIM) 100 mg tablet TAKE 1 TABLET DAILY aspirin [address] tablet Take 1 tablet by mouth daily. BD Ultra-Fine Short Pen Needle 31 gauge x 5/16 needle Inject 4 Injection under the skin daily. blood-glucose meter,continuous (Dexcom G7 Drying Supervisor) misc Use as directed 3 (three) times a day. blood-glucose meter,continuous misc Use to monitor blood glucose blood-glucose sensor (Dexcom G7 Sensor) device 1 Device as directed for 10 days. Apply to skin replace every 10 days docosahexaenoic acid/epa (FISH OIL ORAL) Take 1 capsule by mouth daily. folic acid/vit B complex and C (DIALYVITE ORAL) Take 1 tablet by mouth daily. gentamicin (GARAMYCIN) 0.1 % ointment Apply 1 Application topically as directed. Apply to PD catheter site - uses when changes dressing insulin glargine (Basaglar KwikPen U-100 Insulin) 100 unit/mL (3 mL) injection Inject 10 Units under the skin at bedtime. pramipexole (MIRAPEX) 0.125 mg tablet Take 1 tablet (0.125 mg total) by mouth at bedtime. pravastatin (PRAVACHOL) 40 mg tablet TAKE 1 TABLET AT BEDTIME FOR CHOLESTEROL sertraline (ZOLOFT) 25 mg tablet Take 1 tablet (25 mg total) by mouth daily. calcium acetate,phosphat bind, (PHOSLO) 667 mg (169 mg calcium) capsule TAKE 2 CAPSULES BY MOUTH THREE TIMES A DAY WITH MEALS AND 1 CAPSULE WITH SNACKS Allergies Allergen Reactions Atorvastatin Myalgia tiredness, muscle cramps Clonidine Other (see comments) Dizziness, insomnia, dry mouth Oxycodone GI intolerance Extreme vomiting Penicillins Other (see comments) Unsure (tolerated Ancef before) OBJECTIVE PHYSICAL EXAMINATION BP 122/69 (BP Location: Left arm, Patient Position: Sitting, Cuff Size: Regular) Pulse 81 Temp 36.6 ??C Resp 18 Ht 163 cm Wt 86.2 kg SpO2 95% BMI 32.44 kg/m?? Body mass index is 32.44 kg/m??. General: Alert and oriented. No acute distress. Skin: She appears more pale today. PD Catheter sites appear normal. Neck: Supple. No lymphadenopathy. No carotid bruits. Cardiovascular Exam: Regular rate and rhythm. Normal S1 and S2. No murmurs, rubs, or gallops. Lungs: Clear to auscultation bilaterally. Extremities: No pedal edema. DIAGNOSTICS Results for orders placed or performed in visit on 03/10/23 Albumin Result Value Ref Range Albumin, P 4.1 3.5 - 5.0 g/dL CBC without Differential Result Value Ref Range Hemoglobin 9.0 (L) 11.6 - 15.0 g/dL Hematocrit 27.8 (L) 35.5 - 44.9 % Erythrocytes 2.60 (L) 3.92 - 5.13 x10(12)/L MCV 106.9 (H) 78.2 - 97.9 fL RBC Distrib Width 14.1 12.2 - 16.1 % Platelet Count 197 157 - 371 x10(9)/L Leukocytes 6.3 3.4 - 9.6 x10(9)/L Magnesium Result Value Ref Range Magnesium, P 1.9 1.7 - 2.3 mg/dL Phosphorus Inorganic Result Value Ref Range Phosphorus (Inorganic), P 2.1 (L) 2.5 - 4.5 mg/dL Basic Metabolic Panel Result Value Ref Range Potassium, P 3.8 3.6 - 5.2 mmol/L Sodium, P 132 (L) 135 - 145 mmol/L Chloride, P 96 (L) 98 - 107 mmol/L Bicarbonate, P 25 22 - 29 mmol/L Anion Gap, P 11 7 - 15 BUN (Blood Urea Nitrogen), P 17 6 - 21 mg/dL Creatinine 3.96 (H) 0.59 - 1.04 mg/dL Estimated GFR (eGFR) <15 (L) >=60 mL/min/BSA Calcium, Total, P 9.1 8.8 - 10.2 mg/dL Glucose, P 153 (H) 70 - 140 mg/dL ASSESSMENT / PLAN #1 Weakness General #2 Shortness Of Breath Patient did not seem dramatically better since hospitalization. We discussed my concern that her hemoglobin was quite low on hospital discharge, and she has not had any Aranesp injections in some time per her report. I am concerned the anemia could be an underlying factor in her symptoms. Labs obtained today for further evaluation and hemoglobin remains <10 with increased MCV. #3 Hypertension And Chronic Kidney Disease Stage 5 (HCC) #4 Hemodialysis Status (HCC) #5 Anemia Of Chronic Renal Failure Blood pressure is acceptable even though patient is not on torsemide, amlodipine, or losartan. Labsobtained with mild electrolyte abnormalities. We will update Dr. Lincoln who can hopefully assist with ordering Aranesp injections. #6 Diabetes Mellitus Type 2 With Diabetic Nephropathy (HCC) Blood sugars have been acceptable. Continue with Basaglar at 10 units. Plan was discussed with patient and is in agreement with plan. All questions were answered, side effects of any/all new medications were discussed. Patient left in no acute distress. Allyn Ryan MD Documentation Facility Designer Lilli Tamayo DEBBIE contributed to note content for Alyln Ryan M.D.. documented in this encounter Plan of Treatment Upcoming Encounters Date Type Department Care Team (Latest Contact Info) Description 07/09/2023 8:20 AM ENTERPRISE APPLICATION DEVELOPER Appointment Department of Laboratory Medicine in [address] [phone] Allyn Alfredo M.D. [address] [place] [phone] 07/09/2023 9:15 AM ENTERPRISE APPLICATION DEVELOPER Office Visit Department of Family Medicine, [facility], in [address] [phone] Allyn Alfredo M.D. [address] [place] [phone] 07/16/2023 12:06 PM ENTERPRISE APPLICATION DEVELOPER Hospital Encounter Post Anesthesia Care Unit in [address] [phone] Cristhian Grant M.B., Ch.B., Ph.D. [address] [place] [phone] 07/16/2023 12:06 PM ENTERPRISE APPLICATION DEVELOPER - 07/16/2023 3:35 PM ENTERPRISE APPLICATION DEVELOPER Surgery [facility] MAIN OR [address] [place] [phone] Cristhian Grant M.B., Ch.B., Ph.D. [address] [place] [phone] CREATION FISTULA RADIOCEPHALIC ARTERIOVENOUS 07/20/2023 11:00 AM CDT Office Visit Department of Orthopedic Surgery in [address] [place] [phone] Cindy Walker D.P.M. [address] [place] [phone] Discharge Disposition: Home or Self Care 08/25/2023 3:15 PM CDT Telemedicine Department of Sleep Medicine in [place], [place] [address] [place] [phone] Emilee Emanuel APRN, C.N.P., D.N.P., M.S.N. [address] [place] [phone] Scheduled Procedures Name Priority Associated Diagnoses Date/Ti me CREATION FISTULA RADIOCEPHALIC ARTERIOVENOUS Chronic Kidney Disease Stage 5 Glomerular 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) 07/16/2023 12:06 PM ENTERPRISE APPLICATION DEVELOPER CREATION FISTULA BRACHIOCEPHALIC ARTERIOVENOUS Chronic Kidney Disease Stage 5 Glomerular 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) 07/16/2023 12:06 PM ENTERPRISE APPLICATION DEVELOPER documented as of this encounter Procedures Procedure Name Priority Date/Time Associated Diagnosis Comments CBC WITHOUT DIFFERENTIAL, B Routine 03/10/2023 3:04 PM CDT Anemia Of Chronic Renal Failure Weakness General Hypertension And Chronic Kidney Disease Stage 5 (HCC) PHOSPHORUS (INORGANIC), S Routine 03/10/2023 3:04 PM CDT Anemia Of Chronic Renal Failure Weakness General Hypertension And Chronic Kidney Disease Stage 5 (HCC) MAGNESIUM, S Routine 03/10/2023 3:04 PM CDT Anemia Of Chronic Renal Failure Weakness General Hypertension And Chronic Kidney Disease Stage 5 (HCC) ALBUMIN, S/P Routine 03/10/2023 3:04 PM CDT Anemia Of Chronic Renal Failure Weakness General Hypertension And Chronic Kidney Disease Stage 5 (HCC) BASIC METABOLIC PANEL, S/P Routine 03/10/2023 3:04 PM CDT Anemia Of Chronic Renal Failure Weakness General Hypertension And Chronic Kidney Disease Stage 5 (HCC) documented in this encounter Results * Albumin (03/10/2023 3:04 PM CDT) Albumin, P 4.1 3.5 - 5.0 g/dL 03/10/2023 3:30 PM CDT CNFL Blood (Blood, Venous) 03/10/2023 3:04 PM CDT 03/10/2023 3:07 PM CDT Allyn Ryan M.D. LAB BLOOD ADD-ON [facility] [address] [place] [address], [place] CNFL [facility] [place] [address] * (ABNORMAL) CBC without Differential (03/10/2023 3:04 PM CDT) Pathologist [facility] Hemoglobin 9.0(L) 11.6 - 15.0 g/dL 03/10/2023 3:12 PM CDT CNFL Hematocrit 27.8(L) 35.5 - 44.9 % 03/10/2023 3:12 PM CDT CNFL Erythrocytes 2.60(L) 3.92 - 5.13 x10(12)/L 03/10/2023 3:12 PM CDT CNFL MCV 106.9(H) 78.2 - 97.9 fL 03/10/2023 3:12 PM CDT CNFL RBC Distrib Width 14.1 12.2 - 16.1 % 03/10/2023 3:12 PM CDT CNFL Platelet Count 197 157 - 371 x10(9)/L 03/10/2023 3:12 PM CDT CNFL Leukocytes 6.3 3.4 - 9.6 x10(9)/L 03/10/2023 3:12 PM CDT CNFL Blood (Blood, Venous) 03/10/2023 3:04 PM CDT 03/10/2023 3:07 PM CDT Allyn Ryan M.D. LAB BLOOD ADD-ON [facility] [address] [place] [phone], [facility] CN[facility] in [address] [address] * Magnesium (03/10/2023 3:04 PM CDT) Magnesium, P 1.9 1.7 - 2.3 mg/dL 03/10/2023 3:30 PM CDT CNFL Blood (Blood, Venous) 03/10/2023 3:04 PM CDT 03/10/2023 3:07 PM CDT Allyn Ryan M.D. LAB BLOOD ADD-ON [facility] [address] [place] [phone], [facility] in [address] [address] * (ABNORMAL) Phosphorus Inorganic (03/10/2023 3:04 PM CDT) Phosphorus (Inorganic), P 2.1(L) 2.5 - 4.5 mg/dL 03/10/2023 3:30 PM CDT CNFL Blood (Blood, Venous) 03/10/2023 3:04 PM CDT 03/10/2023 3:07 PM CDT Allyn Ryan M.D. LAB BLOOD ADD-ON [facility] [address] [place] [address], [facility] in [address] [address] * (ABNORMAL) Basic Metabolic Panel (03/10/2023 3:04 PM CDT) Potassium, P 3.8 3.6 - 5.2 mmol/L 03/10/2023 3:30 PM CDT CNFL Sodium, P 132(L) 135 - 145 mmol/L 03/10/2023 3:30 PM CDT CNFL Chloride, P 96(L) 98 - 107 mmol/L 03/10/2023 3:30 PM CDT CNFL Bicarbonate, P 25 22 - 29 mmol/L 03/10/2023 3:30 PM CDT CNFL Anion Gap, P 11 7 - 15 03/10/2023 3:30 PM CDT CNFL BUN (Blood Urea Nitrogen), P 17 6 - 21 mg/dL 03/10/2023 3:30 PM CDT CNFL Creatinine 3.96(H) 0.59 - 1.04 mg/dL 03/10/2023 3:30 PM CDT CNFL Estimated GFR (eGFR) <15(L) >=60 mL/min/BSA 03/10/2023 3:30 PM CDT CNFL Comment: Estimated GFR calculated using the 2020 CKD_EPI creatinine equation. Calcium, Total, P 9.1 8.8 - 10.2 mg/dL 03/10/2023 3:30 PM CDT CNFL Glucose, P 153(H) 70 - 140 mg/dL 03/10/2023 3:30 PM CDT CNFL Blood (Blood, Venous) 03/10/2023 3:04 PM CDT 03/10/2023 3:07 PM CDT Allyn Ryan M.D. LAB BLOOD ADD-ON [facility] [address] [place] [address], [facility] in [address] [address] documented in this encounter Visit Diagnoses Diagnosis Weakness General- Primary Shortness Of Breath Hypertension And Chronic Kidney Disease Stage 5 (HCC) Hemodialysis Status (HCC) Anemia Of Chronic Renal Failure Diabetes Mellitus Type 2 With Diabetic Nephropathy (HCC) Chronic Kidney Disease Stage 5 Glomerular 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) documented in this encounter Additional Health Concerns Assessment Noted Time PHQ-9 Depression Total Score: 0 02/24/20 23 1:03 PM CDT documented as of this encounter Care Teams Cloth Weigher Relationship Specialty Start Date End Date Allyn Alfredo M.D. [id number] [phone] PCP - General Family Medicine 04/05/21 documented as of this encounter
--- OUTSIDE RECORDS SUMMARY | 2023-06-24 18:13 | XMS_ITS | Encounter Summary ---
Author Name Unknown Organization [facility] Address [address] [place] [address] Care Team Providers Care Railroad Conductor Name Role Phone Allyn Alfredo M.D. Primary Care Pro vider Reason for Visit * Reason Onset Date Comments Post Hospital Follow-up 03/02/2023 D/C 02/09 2 1354 Encounter Details Date Type Department Care Team (Latest Contact Info) Description 03/02/2023 Clinical Communication Department of Family Medicine, [facility], in [address] [phone] Tati Jansen R.N. [address] [place] [phone] Post Hospital Follow-up (D/C 03/01 1354) Social History Tobacco Use Types Packs/Day Years [...] often do you attend chur ch or taoist services? 1 to 4 times per year 09/11/2022 Do you belong to any clubs o r organizations such as baptism groups, unions, fraternal or athletic groups, or [...] Answer Date Recorded PHQ-2 Score 0 02/23/2023 [facility] Occupat ional Health - Occupational Stress [...] Sex Assigned at Female 03/27/2017 3:30 PM MAIL TRUCK DRIVER Gender Identity Female 03/27/2017 3:30 PM MAIL TRUCK DRIVER Sexual Orientation Straight 03/27/2017 3: 30 PM MAIL TRUCK DRIVER documented as of this encounter Miscellaneous Notes * Telephone Encounter - Tati Jansen R.N. - 03/02/2023 10:09 AM CDT SUBJECTIVE REASON FOR CALL Post-Hospital follow-up phone call with patient. Admission Date: 02/22/23 Discharge Date: 03/01/23 Discharge Diagnosis: Principal Problem: Weakness General Active Problems: Cancer Breast Personal History Diabetes Mellitus Type 2 With Diabetic Nephropathy (HCC) Anemia Of Chronic Renal Failure Restless Leg Syndrome Hyperlipidemia Hypertension And Chronic Kidney Disease Stage 5 (HCC) Apnea Sleep Obstructive Hyperparathyroidism Renal Secondary (HCC) Dialysis Peritoneal Status ([facility]) General Health Notes today that she is feeling better since discharged from the hospital. Concerns/questions: Patient has no questions or concerns. Symptom Review Pain: Reports acute pain in low back. Describes the pain as achy, with an intensity of 8. Contributing factors include movement. The patient has tried nothing, which has not been helpful. Activities of Daily Living Patient is independent with activities of daily living. Has the patient had a fall since discharge: no. Has ambulation changed since hospitalization: no. Difficulty ambulating: no. The patient lives alone. Patient identified if needing assistance, she could depend on son. Wounds/Incisions/Lines, Drains and Airways LDA: hemodialysis catheter. Signs or symptoms of infection: no. LDA care instructions reviewed: no. Medication Status Current medication list was reviewed and updated as needed. Reports medication is self managed. Medications concerns: none. Medication compliance for current medications: yes. High Risk Medications Diabetic Medications: type: insulin. Home glucose monitoring: yes; frequency: 4 times daily; last completed: this morning; result 144. Difficulty managing diabetes since discharge: no. Home Services Utilized The patient is not currently receiving home health services. Equipment/Supplies for Home Use Type of equipment/supplies: walker. Assessment/Plan Follow-up Appointment PCP Follow-up appointment scheduled: yes; scheduled on 03/10. The patient plans to go to the appointment and has no concerns about getting there. Specialty Follow-up is n/a. Recommendations Referral actions: disease education. Additional recommendations: home care instructions reinforced or provided. Disposition/Recommendation: self-care is appropriate at this time, patient encouraged to call back with questions and recommended continue engagement in self-management activities. Education: patient/caller able to teach back. Caller agreeable to plan of care: yes. documented in this encounter Plan of Treatment Upcoming Encounters Date Type Department Care Team (Latest Contact Info) Description 07/09/2023 8:20 AM MAIL TRUCK DRIVER Appointment Department of Laboratory Medicine in [address] [phone] Allyn Alfredo M.D. [address] [place] [phone] 07/09/2023 9:15 AM MAIL TRUCK DRIVER Office Visit Department of Family Medicine, [facility], in [address] [phone] Allyn Alfredo M.D. [address] [place] [phone] 07/16/2023 12:06 PM MAIL TRUCK DRIVER Hospital Encounter Post Anesthesia Care Unit in [address] [phone] Cristhian Grant M.B., Ch.B., Ph.D. [address] [place] [phone] 07/16/2023 12:06 PM MAIL TRUCK DRIVER - 07/16/2023 3:35 PM MAIL TRUCK DRIVER Surgery [facility] MAIN OR [address] [place] [phone] Cristhian Grant M.B., Ch.B., Ph.D. [address] [place] [phone] CREATION FISTULA RADIOCEPHALIC ARTERIOVENOUS 07/20/2023 11:00 AM CDT Office Visit Department of Orthopedic Surgery in [address] [phone] Cindy Walker D.P.M. [address] [place] [phone] Discharge Disposition: Home or Self Care 08/25/2023 3:15 PM CDT Telemedicine Department of Sleep Medicine in [place], [place] [address] [facility] [place] [phone] Emilee Emanuel APRN, C.N.P., D.N.P., M.S.N. [address] [place] [phone] Scheduled Procedures Name Priority Associated Diagnoses Date/Ti me CREATION FISTULA RADIOCEPHALIC ARTERIOVENOUS Chronic Kidney Disease Stage 5 Glomerular 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) 07/16/2023 12:06 PM MAIL TRUCK DRIVER CREATION FISTULA BRACHIOCEPHALIC ARTERIOVENOUS Chronic Kidney Disease Stage 5 Glomerular 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) 07/16/2023 12:06 PM MAIL TRUCK DRIVER documented as of this encounter Visit Diagnoses Not on filedocumented in this encounter Additional Health Concerns Assessment Noted Time PHQ-9 Depression Total Score: 0 02/24/20 23 1:03 PM CDT documented as of this encounter Care Teams Railroad Conductor Relationship Specialty Start Date End Date Allyn Alfredo M.D. [id number] [phone] PCP - General Family Medicine 04/05/21 documented as of this encounter
--- OUTSIDE RECORDS SUMMARY | 2023-06-24 18:13 | XMS_ITS | Encounter Summary ---
Author Name Unknown Organization [facility] Address [address] [place] [address] Care Team Providers Care Network Architect Manager Name Role Phone Allyn Alfredo M.D. Primary Care Pro vider Encounter Details Date Type Department Care Team (Late st Contact Info) Description 03/03/2023 Orders Only Division of Nephrology and Hypertension in [place], [place] [address] [place] [address] Wilfrid Lincoln Jr., D.O. [address] [place] [phone] Social History Tobacco Use Types Packs/Day Years [...] How often do you attend chur or yarsanism services? 1 to 4 times per year [...] place to sleep or slept in a retirement (including now)? No 09/11/2022 Depression Answer Date [...] Sex Assigned at Female 03/27/2017 3:30 PM APPAREL DESIGNER Gender Identity Female 03/27/2017 3:30 PM APPAREL DESIGNER Sexual Orientation Straight 03/27/2017 3: 30 PM APPAREL DESIGNER documented as of this encounter Plan of Treatment Upcoming Encounters Date Type Department Care Team (Latest Contact Info) Description 07/09/2023 8:20 AM APPAREL DESIGNER Appointment Department of Laboratory Medicine in [address] [phone] Allyn Alfredo M.D. [address] [place] [phone] 07/09/2023 9:15 AM APPAREL DESIGNER Office Visit Department of Family Medicine, [facility], in [address] [phone] Allyn Alfredo M.D. [address] [place] [phone] 07/16/2023 12:06 PM APPAREL DESIGNER Hospital Encounter Post Anesthesia Care Unit in [address] [phone] Cristhian Grant M.B., Ch.B., Ph.D. [address] [place] [phone] 07/16/2023 12:06 PM APPAREL DESIGNER - 07/16/2023 3:35 PM APPAREL DESIGNER Surgery [facility] MAIN OR [address] [place] [phone] Cristhian Grant M.B., Ch.B., Ph.D. [address] [place] [phone] CREATION FISTULA RADIOCEPHALIC ARTERIOVENOUS 07/20/2023 11:00 AM CDT Office Visit Department of Orthopedic Surgery in [address] [phone] Cindy Walker D.P.M. [address] [place] [phone] Discharge Disposition: Home or Self Care 08/25/2023 3:15 PM CDT Telemedicine Department of Sleep Medicine in [place], [place] [address] [place] [phone] Emilee Emanuel APRN, C.N.P., D.N.P., M.S.N. [address] [facility] [place] [phone] Scheduled Procedures Name Priority Associated Diagnoses Date/Ti me CREATION FISTULA RADIOCEPHALIC ARTERIOVENOUS Chronic Kidney Disease Stage 5 Glomerular 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) 07/16/2023 12:06 PM APPAREL DESIGNER CREATION FISTULA BRACHIOCEPHALIC ARTERIOVENOUS Chronic Kidney Disease Stage 5 Glomerular 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) 07/16/2023 12:06 PM APPAREL DESIGNER documented as of this encounter Visit Diagnoses Not on filedocumented in this encounter Additional Health Concerns Assessment Noted Time PHQ-9 Depression Total Score: 0 02/24/20 23 1:03 PM CDT documented as of this encounter Care Teams Network Architect Manager Relationship Specialty Start Date End Date Allyn Alfredo M.D. [phone] [place] [phone] PCP - General Family Medicine 04/05/21 documented as of this encounter
--- OUTSIDE RECORDS SUMMARY | 2023-06-24 18:13 | XMS_ITS | Encounter Summary ---
Author Name Unknown Organization [facility] Address [address] [place] [address] Care Team Providers Care Foreign Car Mechanic Name Role Phone Allyn Alfredo M.D. Primary Care Pro vider Encounter Details Date Type Department Care Team (Late st Contact Info) Description 03/03/2023 Documentation Division of Nephrology and Hypertension in [place], [place] [address] [place] [address] Wilfrid Lincoln Jr., D.O. [address] [place] [phone] Social History Tobacco Use Types Packs/Day Years [...] How often do you attend chur or hindu services? 1 to 4 times per year 09/11/2022 Do you belong to any clubs o r organizations such as orthodoxy groups, unions, fraternal or athletic groups, or [...] Answer Date Recorded PHQ-2 Score 0 02/23/2023 [facility] of Occupat ional Health - Occupational [...] Sex Assigned at Female 03/27/2017 3:30 PM JAVA DEVELOPER ARCHITECT Gender Identity Female 03/27/2017 3:30 PM JAVA DEVELOPER ARCHITECT Sexual Orientation Straight 03/27/2017 3: 30 PM JAVA DEVELOPER ARCHITECT documented as of this encounter Progress Notes * Wilfrid Lincoln Jr., D.O. - 03/03/2023 10:20 AM CDT Care coordination-dialysis visit Visited with her on dialysis today she is new to hemodialysis, on the background of the previous issues which are well discussed in the chart. Also met with her daughter today. Ongoing issues includethat she is out of her Lyrica, she is unable to find her bottle which got lost in the shuffle between home and hospital. Also that [facility] visiting [facility] her suggested a trial of sertraline for the pain. We will initiate this with 25 mg orally daily. Discussed the team approach to incenter hemodialysis, that we would continue to flush her peritoneal catheter, and we will be checking labs to assure we are meeting targets with respect to dialysis delivery, hemoglobin and bone disease. Discussion with her daughter regards nutrition and the living environment. Ongoing challenges and discussions regarding her home living situation. documented in this encounter Plan of Treatment Upcoming Encounters Date Type Department Care Team (Latest Contact Info) Description 07/09/2023 8:20 AM JAVA DEVELOPER ARCHITECT Appointment Department of Laboratory Medicine in [address] [phone] Allyn Alfredo M.D. [address] [place] [phone] 07/09/2023 9:15 AM JAVA DEVELOPER ARCHITECT Office Visit Department of Family Medicine, [facility], in [address] [phone] Allyn Alfredo M.D. [address] [place] [phone] 07/16/2023 12:06 PM JAVA DEVELOPER ARCHITECT Hospital Encounter Post Anesthesia Care Unit in [place], [place] [address] [place] [phone] Cristhian Grant M.B., Ch.B., Ph.D. [address] [place] [phone] 07/16/2023 12:06 PM JAVA DEVELOPER ARCHITECT - 07/16/2023 3:35 PM JAVA DEVELOPER ARCHITECT Surgery [facility] MAIN OR [address] [place] [phone] Cristhian Grant M.B., Ch.B., Ph.D. [address] [place] [address] CREATION FISTULA RADIOCEPHALIC ARTERIOVENOUS 07/20/2023 11:00 AM CDT Office Visit Department of Orthopedic Surgery in [address] [phone] Cindy Walker D.PLeidaMLeida [address] [place] [phone] Discharge Disposition: Home or Self Care 08/25/2023 3:15 PM CDT Telemedicine Department of Sleep Medicine in [place], [place] [address] [phone] Emilee Emanuel APRN, C.N.P., D.N.P., M.S.N. [address] [phone] Scheduled Procedures Name Priority Associated Diagnoses Date/Ti me CREATION FISTULA RADIOCEPHALIC ARTERIOVENOUS Chronic Kidney Disease Stage 5 Glomerular 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) 07/16/2023 12:06 PM JAVA DEVELOPER ARCHITECT CREATION FISTULA BRACHIOCEPHALIC ARTERIOVENOUS Chronic Kidney Disease Stage 5 Glomerular 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) 07/16/2023 12:06 PM JAVA DEVELOPER ARCHITECT documented as of this encounter Visit Diagnoses Not on filedocumented in this encounter Additional Health Concerns Assessment Noted Time PHQ-9 Depression Total Score: 0 02/24/20 23 1:03 PM CDT documented as of this encounter Care Teams Foreign Car Mechanic Relationship Specialty Start Date End Date Allyn Alfredo M.D. [address] [place] [phone] PCP - General Family Medicine 04/05/21 documented as of this encounter
--- OUTSIDE RECORDS SUMMARY | 2023-06-24 18:13 | XMS_ITS | Encounter Summary ---
Author Name Unknown Organization [facility] Address [address] [place] [address] Care Team Providers Care Horologist Name Role Phone Allyn Alfredo M.D. Primary Care Pro vider Reason for Visit * Reason Onset Date Comments Form Review 03/11/2023 [facility] POC 708 Encounter Details Date Type Department Care Team (Latest Contact Info) Description 03/11/2023 Clinical Communication Department of Family Medicine, [facility], in [address] [phone] Allyn Alfredo M.D. [address] [place] [phone] Form Review ([facility] POC 704) Social History Tobacco Use Types Packs/Day Years [...] often do you attend chur ch or mu-ism services? 1 to 4 times per year 09/11/2022 Do you belong to any clubs o r organizations such as confucianist groups, unions, fraternal or athletic groups, or [...] Answer Date Recorded PHQ-2 Score 0 02/23/2023 [facility] of Occupat ional Health - Occupational Stress [...] Sex Assigned at Female 03/27/2017 3:30 PM HAT AND CAP PARTS CUTTER HAND Gender Identity Female 03/27/2017 3:30 PM HAT AND CAP PARTS CUTTER HAND Sexual Orientation Straight 03/27/2017 3: 30 PM HAT AND CAP PARTS CUTTER HAND documented as of this encounter Miscellaneous Notes * Telephone Encounter - Marianne Fong 03/11/2023 5:59 PM CDT Form faxed back to the listed facility Scanned into HIMS (Sweep Folder-Routine) * Telephone Encounter - Marianne Fong Godwin - 03/11/2023 1:13 PM CDT Form was emailed to Allyn Ryan M.D. for electronic review/signature. IRRIGATION SYSTEM INSTALLER: Arely Kiyon PHONE NUMBER: [phone] INFO REQUESTED: [phone] POC INSTRUCTIONS: Fax information to [phone] documented in this encounter Plan of Treatment Upcoming Encounters Date Type Department Care Team (Latest Contact Info) Description 07/09/2023 8:20 AM HAT AND CAP PARTS CUTTER HAND Appointment Department of Laboratory Medicine in [address] [phone] Allyn Alfredo M.D. [address] [place] [phone] 07/09/2023 9:15 AM HAT AND CAP PARTS CUTTER HAND Office Visit Department of Family Medicine, [facility], in [address] [phone] Allyn Alfredo M.D. [address] [place] [phone] 07/16/2023 12:06 PM HAT AND CAP PARTS CUTTER HAND Hospital Encounter Post Anesthesia Care Unit in [place], [place] [address] [place] [address] Cristhian Grant M.B., Ch.B., Ph.D. [address] [place] [address] 07/16/2023 12:06 PM HAT AND CAP PARTS CUTTER HAND - 07/16/2023 3:35 PM HAT AND CAP PARTS CUTTER HAND Surgery [facility] MAIN OR [address] [place] [phone] Cristhian Grant M.B., Ch.B., Ph.D. [address] [place] [address] CREATION FISTULA RADIOCEPHALIC ARTERIOVENOUS 07/20/2023 11:00 AM CDT Office Visit Department of Orthopedic Surgery in [address] [phone] Cindy Walker D.P.M. [address] [place] [phone] Discharge Disposition: Home or Self Care 08/25/2023 3:15 PM CDT Telemedicine Department of Sleep Medicine in [place], [place] [address] [phone] Emilee Emanuel APRN, C.N.P., D.N.P., M.S.N. [address] [phone] Scheduled Procedures Name Priority Associated Diagnoses Date/Ti me CREATION FISTULA RADIOCEPHALIC ARTERIOVENOUS Chronic Kidney Disease Stage 5 Glomerular 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) 07/16/2023 12:06 PM HAT AND CAP PARTS CUTTER HAND CREATION FISTULA BRACHIOCEPHALIC ARTERIOVENOUS Chronic Kidney Disease Stage 5 Glomerular 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) 07/16/2023 12:06 PM HAT AND CAP PARTS CUTTER HAND documented as of this encounter Visit Diagnoses Not on filedocumented in this encounter Additional Health Concerns Assessment Noted Time PHQ-9 Depression Total Score: 0 02/24/20 23 1:03 PM CDT documented as of this encounter Care Teams Horologist Relationship Specialty Start Date End Date Allyn Alfredo M.D. [address] [place] [phone] PCP - General Family Medicine 04/05/21 documented as of this encounter
--- OUTSIDE RECORDS SUMMARY | 2023-06-24 18:13 | XMS_ITS | Encounter Summary ---
Author Name Unknown Organization [facility] Address [address] [place] [address] Care Team Providers Care Load Out Supervisor Name Role Phone Allyn Alfredo M.D. Primary Care Pro vider Encounter Details Date Type Department Care Team (Late st Contact Info) Description 03/13/2023 Documentation Division of Nephrology and Hypertension in [place], [place] [address] [place] [phone] Wilfrid Lincoln Jr., D.O. [address] [place] [phone] Social History Tobacco Use Types Packs/Day Years [...] How often do you attend chur or christianity services? 1 to 4 times per year 09/11/2022 Do you belong to any clubs o r organizations such as religion groups, unions, fraternal or athletic groups, or [...] Answer Date Recorded PHQ-2 Score 0 02/23/2023 [facility] of Occupat ional Health - Occupational Stress [...] place to sleep or slept in a assisted (including now)? No 09/11/2022 Depression Answer Date [...] Sex Assigned at Female 03/27/2017 3:30 PM PAROLE SUPERVISOR Gender Identity Female 03/27/2017 3:30 PM PAROLE SUPERVISOR Sexual Orientation Straight 03/27/2017 3: 30 PM PAROLE SUPERVISOR documented as of this encounter Progress Notes * Wilfrid Lincoln Jr., D.O. - 03/13/2023 11:13 AM CDT Care coordination note: I have been communicating with the patient's daughter over the week via e-mail. This is her modality of communication it works best. The patient admits that shift to [facility] hemodialysis has not been terribly effective at resolvingher fatigue malaise and overall weakness. This is despite her having felt better initially in the hospital. Appreciate that the most recent set of labs show that she is achieving dialysis adequacy with a KT/V over V of 1.87. Chemistries are excellent, note that labs done post dialysis last week demonstrated some hypophosphatemia and borderline low potassium. Her hemoglobin was 9.0, and we are mitigating this with increasing doses of KAREN. Extensive review of her chart reveals that our last abdominal imaging was ancillary to an MRI of the spine in January of 2019. Given her nausea, and overall set of constitutional complaints I am going to orchestrate a CT of the abdomen and pelvis. She does have a left-sided renal cyst which was noted previously. Communicating with multiple teammates regarding her difficult set of circumstances and continued failure to thrive. The initiation of sertraline does not seem to have affected her in a positive manner either. We arestill awaiting final feedback and recommendations from the sleep center. documented in this encounter Plan of Treatment Upcoming Encounters Date Type Department Care Team (Latest Contact Info) Description 07/09/2023 8:20 AM PAROLE SUPERVISOR Appointment Department of Laboratory Medicine in [address] [phone] Allyn Alfredo M.D. [address] [place] [phone] 07/09/2023 9:15 AM PAROLE SUPERVISOR Office Visit Department of Family Medicine, [facility], in [address] [phone] Allyn Alfredo M.D. [address] [place] [phone] 07/16/2023 12:06 PM PAROLE SUPERVISOR Hospital Encounter Post Anesthesia Care Unit in [place], [place] [address] [place] [phone] Cristhian Grant M.B., Ch.B., Ph.D. [address] [place] [address] 07/16/2023 12:06 PM PAROLE SUPERVISOR - 07/16/2023 3:35 PM PAROLE SUPERVISOR Surgery [facility] MAIN OR [address] [place] [phone] Cristhian Grant M.B., Ch.B., Ph.D. [address] [place] [address] CREATION FISTULA RADIOCEPHALIC ARTERIOVENOUS 07/20/2023 11:00 AM CDT Office Visit Department of Orthopedic Surgery in [address] [phone] Cindy Walker D.PLeidaMLeida [address] [place] [phone] Discharge Disposition: Home or Self Care 08/25/2023 3:15 PM CDT Telemedicine Department of Sleep Medicine in [place], [place] [address] [place] [address] Emilee Emanuel APRN, C.N.P., D.N.P., M.S.N. [address] [place] [phone] Scheduled Procedures Name Priority Associated Diagnoses Date/Ti me CREATION FISTULA RADIOCEPHALIC ARTERIOVENOUS Chronic Kidney Disease Stage 5 Glomerular 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) 07/16/2023 12:06 PM PAROLE SUPERVISOR CREATION FISTULA BRACHIOCEPHALIC ARTERIOVENOUS Chronic Kidney Disease Stage 5 Glomerular 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) 07/16/2023 12:06 PM PAROLE SUPERVISOR documented as of this encounter Visit Diagnoses Not on filedocumented in this encounter Additional Health Concerns Assessment Noted Time PHQ-9 Depression Total Score: 0 02/24/20 23 1:03 PM CDT documented as of this encounter Care Teams Load Out Supervisor Relationship Specialty Start Date End Date Allyn Alfredo M.D. [address] [phone] PCP - General Family Medicine 04/05/21 documented as of this encounter
--- OUTSIDE RECORDS SUMMARY | 2023-06-24 18:13 | XMS_ITS | Encounter Summary ---
Author Name Unknown Organization [facility] Address [address] [place] [address] Care Team Providers Care Kennel Keeper Name Role Phone Allyn Alfredo M.D. Primary Care Pro vider Reason for Visit * Reason Onset Date Comments Form Review 03/18/2023 [employer] - 981 Encounter Details Date Type Department Care Team (Latest Contact Info) Description 03/18/2023 Clinical Communication Department of Family Medicine, [facility], in [address] [phone] Allyn Alfredo M.D. [address] [place] [phone] Form Review ([facility] - 981) Social History Tobacco Use Types Packs/Day Years [...] How often do you attend chur or church services? 1 to 4 times per year 09/11/2022 Do you belong to any clubs o r organizations such as moravian groups, unions, fraternal or athletic groups, or [...] Answer Date Recorded PHQ-2 Score 0 02/23/2023 [facility] of Occupat ional Health - Occupational Stress [...] place to sleep or slept in a nursing home (including now)? No 09/11/2022 Depression Answer [...] Sex Assigned at Female 03/27/2017 3:30 PM BINGO CHECKER Gender Identity Female 03/27/2017 3:30 PM BINGO CHECKER Sexual Orientation Straight 03/27/2017 3: 30 PM BINGO CHECKER documented as of this encounter Miscellaneous Notes * Telephone Encounter - Lupe Berg - 03/18/2023 9:30 AM BINGO CHECKER Faxed back. Sent to be scanned into patient chart. Notation for electronic signature, date, full name, and credentials added. O CHECKER * Telephone Encounter - Lpue Berg - 03/18/2023 7:52 AM BINGO CHECKER Form was emailed to Dr Modesta Ryan for electronic review/signature. WARNING ANALYST: [facility] [employer] PHONE NUMBER: [phone] INFO REQUESTED: [phone] INSTRUCTIONS: Fax form to [phone] O CHECKER documented in this encounter Plan of Treatment Upcoming Encounters Date Type Department Care Team (Latest Contact Info) Description 07/09/2023 8:20 AM BINGO CHECKER Appointment Department of Laboratory Medicine in [address] [phone] Allyn Alfredo M.D. [address] [place] [phone] 07/09/2023 9:15 AM BINGO CHECKER Office Visit Department of Family Medicine, [facility], in [address] [phone] Allyn Alfredo M.D. [address] [place] [phone] 07/16/2023 12:06 PM BINGO CHECKER Hospital Encounter Post Anesthesia Care Unit in [place], [place] [address] [place] [phone] Cristhian Grant M.B., Ch.B., Ph.D. [address] [place] [phone] 07/16/2023 12:06 PM BINGO CHECKER - 07/16/2023 3:35 PM BINGO CHECKER Surgery [facility] MAIN OR [address] [place] [address] Cristhian Grant M.B., Ch.B., Ph.D. [address] [place] [address] CREATION FISTULA RADIOCEPHALIC ARTERIOVENOUS 07/20/2023 11:00 AM CDT Office Visit Department of Orthopedic Surgery in [address] [phone] Cindy Walker D.PLeidaMLeida [address] [place] [phone] Discharge Disposition: Home or Self Care 08/25/2023 3:15 PM CDT Telemedicine Department of Sleep Medicine in [place], [place] [address] [phone] Emilee Emanuel APRN, C.N.P., D.N.P., M.S.N. [address] [phone] Scheduled Procedures Name Priority Associated Diagnoses Date/Ti me CREATION FISTULA RADIOCEPHALIC ARTERIOVENOUS Chronic Kidney Disease Stage 5 Glomerular 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) 07/16/2023 12:06 PM BINGO CHECKER CREATION FISTULA BRACHIOCEPHALIC ARTERIOVENOUS Chronic Kidney Disease Stage 5 Glomerular 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) 07/16/2023 12:06 PM BINGO CHECKER documented as of this encounter Visit Diagnoses Not on filedocumented in this encounter Additional Health Concerns Assessment Noted Time PHQ-9 Depression Total Score: 0 02/24/20 23 1:03 PM CDT documented as of this encounter Care Teams Kennel Keeper Relationship Specialty Start Date End Date Allyn Alfredo M.D. [address] [phone] PCP - General Family Medicine 04/05/21 documented as of this encounter
--- OUTSIDE RECORDS SUMMARY | 2023-06-24 18:13 | XMS_ITS | Encounter Summary ---
Author Name Unknown Organization [facility] Address [address] [place] [address] Care Team Providers Care Solderer Torch Name Role Phone Allyn Alfredo M.D. Primary Care Pro vider Reason for Visit * Reason Onset Date Comments Form Review 03/09/2023 Lumeta e ( VO 96 Encounter Details Date Type Department Care Team (Latest Contact Info) Description 03/09/2023 Clinical Communication Department of Family Medicine, [facility], in [address] [phone] Allyn Alfredo M.D. [address] [place] [phone] Form Review ([employer] ( VO 961) Social History Tobacco Use Types Packs/Day Years [...] often do you attend chur ch or gnosticism services? 1 to 4 times per year [...] Answer Date Recorded PHQ-2 Score 0 02/23/2023 [facility] of Occupat ional Health - Occupational Stress [...] Sex Assigned at Female 03/27/2017 3:30 PM SORTING MACHINE ATTENDANT Gender Identity Female 03/27/2017 3:30 PM SORTING MACHINE ATTENDANT Sexual Orientation Straight 03/27/2017 3: 30 PM SORTING MACHINE ATTENDANT documented as of this encounter Miscellaneous Notes * Telephone Encounter - Zoila May - 03/09/2023 4:20 PM CDT Received back completed form. Form faxed back to the listed facility. Scanned into HIMS * Telephone Encounter - Zoila May - 03/09/2023 12:35 PM CDT Form was emailed to Allyn Ryan MD for electronic review/signature. KNURLING MACHINE OPERATOR: [place] [facility] [place] PHONE NUMBER: [phone] INFO REQUESTED: VO [id number] INSTRUCTIONS: Fax form to [phone] documented in this encounter Plan of Treatment Upcoming Encounters Date Type Department Care Team (Latest Contact Info) Description 07/09/2023 8:20 AM SORTING MACHINE ATTENDANT Appointment Department of Laboratory Medicine in [address] [phone] Allyn Alfredo M.D. [address] [place] [phone] 07/09/2023 9:15 AM SORTING MACHINE ATTENDANT Office Visit Department of Family Medicine, [facility], in [address] [phone] Allyn Alfredo M.D. [address] [place] [phone] 07/16/2023 12:06 PM SORTING MACHINE ATTENDANT Hospital Encounter Post Anesthesia Care Unit in [place], [place] [address] [place] [phone] Cristhian Grant M.B., Ch.B., Ph.D. [address] [place] [phone] 07/16/2023 12:06 PM SORTING MACHINE ATTENDANT - 07/16/2023 3:35 PM SORTING MACHINE ATTENDANT Surgery [facility] MAIN OR [address] [place] [phone] Cristhian Grant M.B., Ch.B., Ph.D. [address] [place] [address] CREATION FISTULA RADIOCEPHALIC ARTERIOVENOUS 07/20/2023 11:00 AM CDT Office Visit Department of Orthopedic Surgery in [address] [phone] Cindy Walker D.PLeidaMLeida [address] [place] [phone] Discharge Disposition: Home or Self Care 08/25/2023 3:15 PM CDT Telemedicine Department of Sleep Medicine in [place], [place] [address] [phone] Emilee Emaunel APRN, C.N.P., D.N.P., M.S.N. [address] [phone] Scheduled Procedures Name Priority Associated Diagnoses Date/Ti me CREATION FISTULA RADIOCEPHALIC ARTERIOVENOUS Chronic Kidney Disease Stage 5 Glomerular 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) 07/16/2023 12:06 PM SORTING MACHINE ATTENDANT CREATION FISTULA BRACHIOCEPHALIC ARTERIOVENOUS Chronic Kidney Disease Stage 5 Glomerular 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) 07/16/2023 12:06 PM SORTING MACHINE ATTENDANT documented as of this encounter Visit Diagnoses Not on filedocumented in this encounter Additional Health Concerns Assessment Noted Time PHQ-9 Depression Total Score: 0 02/24/20 23 1:03 PM CDT documented as of this encounter Care Teams Solderer Torch Relationship Specialty Start Date End Date Allyn Alfredo M.D. [address] [place] [phone] PCP - General Family Medicine 04/05/21 documented as of this encounter
--- OUTSIDE RECORDS SUMMARY | 2023-06-24 18:13 | XMS_ITS | Encounter Summary ---
Author Name Unknown Organization [facility] Address [address] [place] [address] Care Team Providers Care Sales Review Clerk Name Role Phone Allyn Alfredo M.D. Primary Care Pro vider Encounter Details Date Type Department Care Team (Late st Contact Info) Description 03/13/2023 Documentation Division of Nephrology and Hypertension in [place], [place] [address] [place] [phone] Wilfrid Lincoln Jr., D.O. [address] [place] [phone] Social History Tobacco Use Types Packs/Day Years [...] How often do you attend chur or muslim services? 1 to 4 times per year 09/11/2022 Do you belong to any clubs o r organizations such as jehovah's witness groups, unions, fraternal or athletic groups, or [...] Answer Date Recorded PHQ-2 Score 0 02/23/2023 [facility] of Occupat ional Health - Occupational Stress [...] Sex Assigned at Female 03/27/2017 3:30 PM CARBON CAPTURE POWER PLANT OPERATOR Gender Identity Female 03/27/2017 3:30 PM CARBON CAPTURE POWER PLANT OPERATOR Sexual Orientation Straight 03/27/2017 3: 30 PM CARBON CAPTURE POWER PLANT OPERATOR documented as of this encounter Progress Notes * Wilfrid Lincoln Jr., D.O. - 03/13/2023 11:16 AM CDT See prior note documented in this encounter Plan of Treatment Upcoming Encounters Date Type Department Care Team (Latest Contact Info) Description 07/09/2023 8:20 AM CARBON CAPTURE POWER PLANT OPERATOR Appointment Department of Laboratory Medicine in [address] [phone] Allyn Alfredo M.D. [address] [place] [phone] 07/09/2023 9:15 AM CARBON CAPTURE POWER PLANT OPERATOR Office Visit Department of Family Medicine, [facility], in [address] [phone] Allyn Alfredo M.D. [address] [place] [phone] 07/16/2023 12:06 PM CARBON CAPTURE POWER PLANT OPERATOR Hospital Encounter Post Anesthesia Care Unit in [address] [phone] Cristhian Grant M.B., Ch.B., Ph.D. [address] [place] [phone] 07/16/2023 12:06 PM CARBON CAPTURE POWER PLANT OPERATOR - 07/16/2023 3:35 PM CARBON CAPTURE POWER PLANT OPERATOR Surgery [facility] MAIN OR [address] [place] [phone] Cristhian Grant M.B., Ch.B., Ph.D. [address] [place] [phone] CREATION FISTULA RADIOCEPHALIC ARTERIOVENOUS 07/20/2023 11:00 AM CDT Office Visit Department of Orthopedic Surgery in [address] [phone] Cindy Walker D.P.M. [address] [place] [address] Discharge Disposition: Home or Self Care 08/25/2023 3:15 PM CDT Telemedicine Department of Sleep Medicine in [place], [place] [address] [place] [address] Emilee Emanuel APRN, C.N.P., D.N.P., M.S.N. [address] [place] [phone] Scheduled Procedures Name Priority Associated Diagnoses Date/Ti me CREATION FISTULA RADIOCEPHALIC ARTERIOVENOUS Chronic Kidney Disease Stage 5 Glomerular 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) 07/16/2023 12:06 PM CARBON CAPTURE POWER PLANT OPERATOR CREATION FISTULA BRACHIOCEPHALIC ARTERIOVENOUS Chronic Kidney Disease Stage 5 Glomerular 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) 07/16/2023 12:06 PM CARBON CAPTURE POWER PLANT OPERATOR documented as of this encounter Visit Diagnoses Not on filedocumented in this encounter Additional Health Concerns Assessment Noted Time PHQ-9 Depression Total Score: 0 02/24/20 23 1:03 PM CDT documented as of this encounter Care Teams Sales Review Clerk Relationship Specialty Start Date End Date Allyn Alfredo M.D. NPBoston: [phone] [id number] [phone] PCP - General Family Medicine 04/05/21 documented as of this encounter
--- OUTSIDE RECORDS SUMMARY | 2023-06-24 18:13 | XMS_ITS | Encounter Summary ---
Author Name Unknown Organization [facility] Address [address] [place] [address] Care Team Providers Care Wing Commander Name Role Phone Allyn Alfredo M.D. Primary Care Pro vider Reason for Referral * MRI/CAT/PET Scan (Routine) - Closed Specialty Diagnoses / Procedures Referred By Contac t Referred To Contact Radiology Diagnoses Nausea And Vomiting Procedures CT Abdomen Pelvis without and with IV Contrast Wilfrid Lincoln Jr., D.O. [address] [place] [phone] [facility] Referral ID Status Reason Start Date Expiration Date Visits Re quested Visits Authorized [id number] Closed 03/13/2023 03/12/2024 1 1 ESS MANAGER Reason for Visit * MRI/CAT/PET Scan (Routine) - Closed Specialty Diagnoses / Procedures Referred By Contac t Referred To Contact Radiology Diagnoses Nausea And Vomiting Procedures CT Abdomen Pelvis without and with IV Contrast Wilfrid Lincoln Jr., D.O. 200 [place] [address] [facility] Region Referral ID Status Reason Start Date Expiration Date Visits Re quested Visits Authorized [id number] Closed 03/13/2023 03/12/2024 1 1 Encounter Details Date Type Department Care Team (Latest Contact Info) Description 03/18/2023 2:22 PM EXPRESS MANAGER - 03/18/2023 11:59 PM EXPRESS MANAGER Hospital Encounter Department of Radiology in [address] [phone] Wilfrid Lincoln Jr., D.O. [address] [place] [address] Nausea And Vomiting Discharge Disposition: Home or Self Care Social [...] any clubs o r organizations such as voodoo groups, unions, fraternal or athletic groups, or [...] Sex Assigned at Female 03/27/2017 3:30 PM EXPRESS MANAGER Gender Identity Female 03/27/2017 3:30 PM EXPRESS MANAGER Sexual Orientation Straight 03/27/2017 3: 30 PM EXPRESS MANAGER documented as of this encounter Medications at Time of Discharge Medication Sig Dispensed Refills Start Date End Date aspirin [address] tablet Take 1 tablet by mouth daily. 0 BD Ultra-Fine Short Pen Needle 31 gauge x 5/16 needle Inject 4 Injection under the skin daily. 400 each 3 12/25/2022 blood-glucose meter,continuous ([employer] G7 Financial Manager) misc Use as directed 3 (three) times [...] (Latest Contact Info) Description 07/09/2023 8:20 AM EXPRESS MANAGER Appointment Department of Laboratory Medicine in [address] [phone] Allyn Alfredo M.D. [address] [place] [phone] 07/09/2023 9:15 AM EXPRESS MANAGER Office Visit Department of Family Medicine, [facility], in [address] [phone] Allyn Alfredo M.D. [address] [place] [phone] 07/16/2023 12:06 PM EXPRESS MANAGER Hospital Encounter Post Anesthesia Care Unit in [address] [phone] Cristhian Grant M.B., Ch.B., Ph.D. [address] [place] [phone] 07/16/2023 12:06 PM EXPRESS MANAGER - 07/16/2023 3:35 PM EXPRESS MANAGER Surgery [facility]IN OR [address] [place] [address] Cristhian Grant M.B., Ch.B., Ph.D. 200 [place] [address] CREATION FISTULA RADIOCEPHALIC ARTERIOVENOUS 07/20/2023 11:00 AM CDT Office Visit Department of Orthopedic Surgery in [address] [phone] Cindy Walker D.PLeidaMLeida [address] [place] [phone] Discharge Disposition: Home or Self Care 08/25/2023 3:15 PM CDT Telemedicine Department of Sleep Medicine in [place], [place] [address] [place] [phone] Emilee Emanuel APRN, C.N.P., D.N.P., M.S.N. [address] [place] [phone] Scheduled Procedures Name Priority Associated Diagnoses Date/Ti me CREATION FISTULA RADIOCEPHALIC ARTERIOVENOUS Chronic Kidney Disease Stage 5 Glomerular 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) 07/16/2023 12:06 PM EXPRESS MANAGER CREATION FISTULA BRACHIOCEPHALIC ARTERIOVENOUS Chronic Kidney Disease Stage 5 Glomerular 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) 07/16/2023 12:06 PM EXPRESS MANAGER documented as of this encounter Procedures Procedure Name Priority Date/Time Associated Diagnosis Comments CT ABDOMEN PELVIS WITHOUT AND WITH IV CONTRAST RAD - Routine (most inpatients and all outpatients) 03/18/2023 3:50 PM EXPRESS MANAGER Nausea And Vomiting documented in this encounter Results * CT Abdomen Pelvis without and with IV Contrast (03/18/2023 3:50 PM EXPRESS MANAGER) Anatomical Region Laterality Modality Abdomen, Pelvis, Abdominal R ST LOS, Abdominal ARZ LOS, Abdominal FLA LOS N/A Computed Tomography 03/18/2023 3:44 PM EXPRESS MANAGER Impressions 03/18/2023 4:59 PM EXPRESS MANAGER 1. Bilateral renal cysts, some of which [...] findings as detailed. Narrative 03/18/2023 4:59 PM EXPRESS MANAGER EXAM: CT ABDOMEN PELVIS WITHOUT AND WITH IV CONTRAST COMPARISON: None FINDINGS: Atrophic bilateral stebbins kidneys with cysts. Some of these cysts [...] Wilfrid Lincoln Jr., D.O. by Bala Love M.D. at 4:57 PM EXPRESS MANAGER on 03/18/2023. Procedure Note Bala Love M.D. - 03/18/2023 EXAM: CT ABDOMEN PELVIS WITHOUT AND WITH IV CONTRAST COMPARISON: None FINDINGS: Atrophic bilateral stebbins kidneys with cysts. Some of these cysts [...] D.O. by Bala Love M.D.at 4:57 PM EXPRESS MANAGER on 03/18/2023. IMPRESSION: 1. Bilateral renal cysts, [...] documented in this encounter Visit Diagnoses Diagnosis Nausea And Vomiting Chronic Kidney Disease Stage 5 Glomerular 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) documented in this encounter Administered Medications Inactive Administered Medications - up to 3 most recent administrations Medication Order MAR Action Action Date Dose Rate Site iohexoL 300 mg iodine/mL solution 129 mL (OMNIPAQUE) 129 mL, intravenous, Once in imaging, contrast, Starting on Thu03/18/23 at 1517, For 1 dose Given 03/18/2023 3:38 PM EXPRESS MANAGER 129 mL sodium chloride 0.9 % flush 82 mL 82 mL, intravenous, Once in imaging, line care, Starting on Thu03/18/23 at 1517, For 1 dose Given 03/18/2023 3:37 PM EXPRESS MANAGER 82 mL sodium chloride 0.9 % injection 10 mL 10 mL, intravenous, As needed, line care, Starting on Thu03/18/23 at 1517 Given 03/18/2023 3:37 PM EXPRESS MANAGER 10 mL documented in this encounter Additional Health Concerns Assessment Noted Time PHQ-9 Depression Total Score: 0 02/24/20 23 1:03 PM CDT documented as of this encounter Care Teams Wing Commander Relationship Specialty Start Date End Date Allyn Alfredo M.D. [address] [phone] PCP - General Family Medicine 04/05/21 documented as of this encounter
--- OUTSIDE RECORDS SUMMARY | 2023-06-24 18:13 | XMS_ITS | Encounter Summary ---
Author Name Unknown Organization [facility] Address [address] [place] [address] Care Team Providers Care Automatic I Threading Machine Feeder Name Role Phone Allyn Alfredo M.D. Primary Care Pro vider Reason for Visit * Reason Onset Date Comments Form Review 03/13/2023 Arely - F2 F Encounter Details Date Type Department Care Team (Latest Contact Info) Description 03/13/2023 Clinical Communication Department of Family Medicine, [facility], in [address] [phone] Allyn Alfredo M.D. [address] [place] [phone] Form Review (Arely AKERS - F2F ) Social History Tobacco Use Types Packs/Day Years [...] often do you attend chur ch or buddhism services? 1 to 4 times per year 09/11/2022 Do you belong to any clubs o r organizations such as uatsdin groups, unions, fraternal or athletic groups, or [...] Answer Date Recorded PHQ-2 Score 0 02/23/2023 [facility] of Occupat ional Health - Occupational Stress [...] Sex Assigned at Female 03/27/2017 3:30 PM HOME CONNECT LPN Gender Identity Female 03/27/2017 3:30 PM HOME CONNECT LPN Sexual Orientation Straight 03/27/2017 3: 30 PM HOME CONNECT LPN documented as of this encounter Miscellaneous Notes * Telephone Encounter - Beth Meraz - 03/16/2023 11:43 AM CST Form completed by the provider. Faxed back and sent to scanning. CONNECT LPN * Telephone Encounter - Beth Meraz - 03/13/2023 1:38 PM CDT Form was emailed to Dr. Modesta Ryan for electronic review/signature. CYLINDRICAL MIXER: [facility] PHONE NUMBER: [phone] INFO REQUESTED: F2F INSTRUCTIONS: Fax form to [phone] documented in this encounter Plan of Treatment Upcoming Encounters Date Type Department Care Team (Latest Contact Info) Description 07/09/2023 8:20 AM HOME CONNECT LPN Appointment Department of Laboratory Medicine in [address] [phone] Allyn Alfredo M.D. [address] [place] [phone] 07/09/2023 9:15 AM HOME CONNECT LPN Office Visit Department of Family Medicine, [facility], in [address] [phone] Allyn Alfredo M.D. [address] [place] [phone] 07/16/2023 12:06 PM HOME CONNECT LPN Hospital Encounter Post Anesthesia Care Unit in [place], [place] [address] [place] [phone] Cristhian Grant M.B., Ch.B., Ph.D. [address] [place] [address] 07/16/2023 12:06 PM HOME CONNECT LPN - 07/16/2023 3:35 PM HOME CONNECT LPN Surgery [facility] MAIN OR [address] [place] [address] Cristhian Grant M.B., Ch.B., Ph.D. [address] [place] [address] CREATION FISTULA RADIOCEPHALIC ARTERIOVENOUS 07/20/2023 11:00 AM CDT Office Visit Department of Orthopedic Surgery in [address] [phone] Cindy Walker D.PAv [address] [place] [phone] Discharge Disposition: Home or Self Care 08/25/2023 3:15 PM CDT Telemedicine Department of Sleep Medicine in [place], [place] [address] [phone] Emilee Emanuel APRN, C.N.P., D.N.P., M.S.N. [address] [phone] Scheduled Procedures Name Priority Associated Diagnoses Date/Ti me CREATION FISTULA RADIOCEPHALIC ARTERIOVENOUS Chronic Kidney Disease Stage 5 Glomerular 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) 07/16/2023 12:06 PM HOME CONNECT LPN CREATION FISTULA BRACHIOCEPHALIC ARTERIOVENOUS Chronic Kidney Disease Stage 5 Glomerular 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) 07/16/2023 12:06 PM HOME CONNECT LPN documented as of this encounter Visit Diagnoses Not on filedocumented in this encounter Additional Health Concerns Assessment Noted Time PHQ-9 Depression Total Score: 0 02/24/20 23 1:03 PM CDT documented as of this encounter Care Teams Automatic I Threading Machine Feeder Relationship Specialty Start Date End Date Allyn Alfredo M.D. [address] [place] [phone] PCP - General Family Medicine 04/05/21 documented as of this encounter
[2023-06-24 18:14] LABS: Slide Review Reflex No
--- OUTSIDE RECORDS SUMMARY | 2023-06-24 18:14 | XMS_ITS | Encounter Summary ---
Author Name Unknown Organization [facility] Address [address] [place] [address] Care Team Providers Care College Or [employer] Business Manager Name Role Phone Allyn Alfredo M.D. Primary Care Pro vider Reason for Referral * Outpatient (Routine) - Authorized Specialty Diagnoses / Procedures Referred By Esther zamorano Referred To Contact Dermatology Diagnoses Nevus Skin Kymberly Dunaway M.D., M.P.H. [address] [place] [phone] [facility] Referral ID Status Reason Start Date Expiration Date Visits Requested Visits Authorized [id number] Authorized Specialty Services Required 3 02/27/2024 1 1 Reason for Visit * Reason Onset Date Comments Order Request 02/27/2023 Encounter Details Date Type Department Care Team (Late st Contact Info) Description 02/27/2023 Clinical Communication [facility] [address] [place] [phone] Kymberly Dunaway M.D., M.P.H. [address] [place] [phone] Order Request Social History Tobacco Use Types Packs/Day Years [...] often do you attend chur ch or yarsanism services? 1 to 4 times [...] Answer Date Recorded PHQ-2 Score 0 02/23/2023 [facility] of Occupat ional [facility] - Occupational Stress Questionnaire Answer Date [...] Sex Assigned at Female 03/27/2017 3:30 PM EXECUTIVE CHAIRMAN Gender Identity Female 03/27/2017 3:30 PM EXECUTIVE CHAIRMAN Sexual Orientation Straight 03/27/2017 3: 30 PM EXECUTIVE CHAIRMAN documented as of this encounter Plan of Treatment Upcoming Encounters Date Type Department Care Team (Latest Contact Info) Description 07/09/2023 8:20 AM EXECUTIVE CHAIRMAN Appointment Department of Laboratory Medicine in [address] [phone] Allyn Alfredo M.D. [address] [place] [phone] 07/09/2023 9:15 AM EXECUTIVE CHAIRMAN Office Visit Department of Family Medicine, [facility], in [address] [phone] Allyn Alfredo M.D. [address] [place] [phone] 07/16/2023 12:06 PM EXECUTIVE CHAIRMAN Hospital Encounter Post Anesthesia Care Unit in [address] [phone] Cristhian Grant M.B., Ch.B., Ph.D. [address] [place] [phone] 07/16/2023 12:06 PM EXECUTIVE CHAIRMAN - 07/16/2023 3:35 PM EXECUTIVE CHAIRMAN Surgery [facility] MAIN OR [address] [place] [phone] Cristhian Grant M.B., Ch.B., Ph.D. [address] [place] [phone] CREATION FISTULA RADIOCEPHALIC ARTERIOVENOUS 07/20/2023 11:00 AM CDT Office Visit Department of Orthopedic Surgery in [address] [phone] Cindy Walker D.PLeidaM. [address] [place] [address] Discharge Disposition: Home or Self Care 08/25/2023 3:15 PM CDT Telemedicine Department of Sleep Medicine in [place], [place] [address] [place] [phone] Emilee Emanuel APRN, C.N.P., D.N.P., M.S.N. [address] [place] [phone] Scheduled Procedures Name Priority Associated Diagnoses Date/Ti me CREATION FISTULA RADIOCEPHALIC ARTERIOVENOUS Chronic Kidney Disease Stage 5 Glomerular 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) 07/16/2023 12:06 PM EXECUTIVE CHAIRMAN CREATION FISTULA BRACHIOCEPHALIC ARTERIOVENOUS Chronic Kidney Disease Stage 5 Glomerular 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) 07/16/2023 12:06 PM EXECUTIVE CHAIRMAN Scheduled Referrals Name Type Priority Associated Diagnoses Order Schedule Dermatology - General consult (clinic) Outpatient Referral Routine Nevus Skin Expected: 03/20/2023 (Approximate), Expires: 05/30/2024 documented as of this encounter Visit Diagnoses Diagnosis Nevus Skin- Primary Chronic Kidney Disease Stage 5 Glomerular 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) documented in this encounter Additional Health Concerns Assessment Noted Time PHQ-9 Depression Total Score: 0 02/24/20 23 1:03 PM CDT documented as of this encounter Care Teams College Or [employer] Business Manager Relationship Specialty Start Date End Date Allyn Alfredo M.D. [address] [place] [phone] PCP - General Family Medicine 04/05/21 documented as of this encounter
--- OUTSIDE RECORDS SUMMARY | 2023-06-24 18:14 | XMS_ITS | Encounter Summary ---
Author Name Unknown Organization [facility] Address [address] [place] [id number] Care Team Providers Care Gas Regulator Repairer Helper Name Role Phone Allyn Alfredo M.D. Primary Care Pro vider Encounter Details Date Type Department Care Team (Latest Contact Info) Description 02/22/2023 10:49 PM CDT - 03/01/2023 1:54 PM CDT Hospital Encounter [facility], [facility] [place], [facility], Sixth Floor [address] [place] [address] [phone] Luis Moore M.D. [address] [place] [phone] Gibran Torres M.D. [address] [place] [phone] Omar Melton M.B., Ch.B. [address] [place] [address] [phone] Weakness General (Primary Dx); Decline Functional Status [R53.81 (ICD-10-CM)] Discharge Disposition: Home-Health Care Svc Social History Tobacco Use Types Packs/Day Years [...] Answer Date Recorded PHQ-2 Score 0 02/23/2023 [facility] - Occupational Stress Questionnaire Answer Date [...] place to sleep or slept in a half-way (including now)? No 09/11/2022 Depression Answer Date [...] Sex Assigned at Female 03/27/2017 3:30 PM DIE HOLDER Gender Identity Female 03/27/2017 3:30 PM DIE HOLDER Sexual Orientation Straight 03/27/2017 3: 30 PM DIE HOLDER documented as of this encounter Last Filed Vital Signs Vital Sign Reading Time Taken Comments Blood Pressure 130/53 03/01/2023 1:31 PM CDT Pulse 83 02/28/2023 11:13 AM CDT Temperature 36.7 ??C (98.1 ??F) 03/01/2023 1:31 PM CD T Respiratory Rate 18 03/01/2023 1:31 PM CDT Oxygen Saturation 97% 03/01/2023 1:31 PM CDT Inhaled Oxygen Concentration - - Weight 85 kg (187 lb 6.3 oz) 02/28/2023 11:00 AM CDT Height 162 cm (5' 3.78) 02/23/2023 10:28 AM CDT Body Mass Index 32.39 02/23/2023 10:28 AM CDT documented in this encounter Discharge Summaries * Yolanda Bustos M.D. - 03/01/2023 6:03 AM CDT DISCHARGE SUMMARY BRIEF OVERVIEW Hospital: [facility] Discharge Provider: Gibran Torres M.D. Primary Team: [facility] Medicine 3 ([facility]) Primary Care Providers: Allyn Alfredo M.D. (General[address] [phone] Primary Care Provider Primary Care Provider Admission Date: 02/22/2023 Discharge Date: 03/01/23 PRINCIPAL DIAGNOSIS Weakness General SECONDARY DIAGNOSES Principal Problem: Weakness General Active Problems: Cancer Breast Personal History Diabetes Mellitus Type 2 With Diabetic Nephropathy (HCC) Anemia Of Chronic Renal Failure Restless Leg Syndrome Hyperlipidemia Hypertension And Chronic Kidney Disease Stage 5 (HCC) Apnea Sleep Obstructive Hyperparathyroidism Renal Secondary (HCC) Dialysis Peritoneal Status (HCC) Resolved Problems: * No resolved hospital problems. * DISCHARGE DISPOSITION Home or Self Care [1] ACTIVE ISSUES REQUIRING FOLLOW UP Ms. Medina, It was a pleasure caring for you in the hospital. We have a few things we changed in the hospital and also would like you to follow-up on. - You will begin hemodialysis Thursday, , and Thursday - We have you following up with physical and occupation therapy - We stopped some of your blood pressure and diuretic medications due to your low blood pressures: torsemide, losartan and amlodipine, please do not take these until your primary care physician follows up and tells you to restart them. - I ordered outpatient follow-up with dermatology regarding the mole on your right ankle. OUTPATIENT FOLLOW UP Scheduled Appointments 03/10/2023 2:15 PM Allyn Alfredo M.D. Family Medicine 03/16/2023 11:00 AM Cindy Walker D.PAv Orthopedic Surgery 05/01/2023 11:45 AM Emilee Emanuel APRN, Gabby.N.P., D.N.P., M.S.N. Sleep Medicine 06/01/2023 9:15 AM Diana Cardenas M.D. Dermatology For appointment details refer to your Patient Appointment Guide. TEST RESULTS PENDING AT DISCHARGE Pending Labs None DETAILS OF HOSPITAL STAY REASON FOR ADMISSION Weakness General HOSPITAL COURSE Ms. Concetta Medina is a 77 y.o. female with medical comorbidities including: ESRD (daily peritoneal dialysis), DM2 (on insulin), secondary renal hyperparathyroidism, personal history of breast cancer,HTN, HLD, SHAMIKA, and restless leg syndrome who presented with general weakness. Pre-Admission Course: Over the past 3 months or so, patient became increasingly weak/fatigued. Worsened over the past week prompting ED visit. Prior to onset, she was able to walk without issue, cook, and clean her townhouse. Now, she has had difficulty walking for more than few steps without having to sit down. She states this is mostly due to lower back pain, for which she had spinal surgery in [facility] about 2 years ago. Initially surgery helped with pain, but pain recurred, then further surgery was not expected to help. She has no back pain when sitting or lying. Her walking is also limited by generalized leg fatigue (but not by muscle weakness, leg pain, nor dyspnea on exertion). She has not been able tocook due to fatigue and thus losing weight due to decreased PO intake. No fevers, chills, night sweats, chest pain, saddle anesthesia, nor sensory changes (outside of chronic peripheral neuropathy). ED Course: 02/22 Stable vitals. Chest xray unremarkable. Creatinine 14.61, anion gap 29, glucose 143. Mild anemia. WBC count normal, CRP 6.5. She was admitted to Medicine 3 for further workup of her weakness. Medicine 3: On the floor she was stable. On further history, patient was having difficulty keeping up with PD at home. Was also positive for orthostasis. Home torsemide, losartan, and amlodipine were discontinued. Patient had a tunneled dialysis catheter place and was transitioned from PD to HD. She tolerated the transition well and was accepted for outpatient HD . Will also follow with home health for PT/OT. She was discharged on 03/01, and will receive transportation from her daughter to PT and dialysis. PCP Follow Up: - Please follow up with a BMP, patient's sodium low on discharge. - Please follow up on food security / community resources for meals. - Please follow up on blood pressure and consider restarting torsemide, losartan, and amlodipine astolerated. Physical Exam: General: no acute distress HEENT: mucous membranes moist, EOMI Heart: extremities well perfused, no peripheral edema Lungs: breathing comfortably on room air Abdomen: non distended Neuro: AAOx3, grossly intact CONSULTS ORDERED DURING THIS ADMISSION IP CONSULT TO DIETITIAN IP CONSULT TO NEPHROLOGY IP CONSULT TO CARE MANAGEMENT IP CONSULT TO DIETITIAN IP CONSULT TO DIETITIAN CONDITION AT DISCHARGE stable Discharge instructions were provided to the patient and caregiver(s). Total time spent in discharge services today: ____45___ minutes. documented in this encounter Discharge Instructions * Discharge Instructions* Yolanda Bustos M.D. - 02/26/2023 8:19 AM CDT Ms. Medina, It was a pleasure caring for you in the hospital. We have a few things we changed in the hospital and also would like you to follow-up on. - You will begin hemodialysis Thursday, , and Thursday - We have you following up with physical and occupation therapy - We stopped some of your blood pressure and diuretic medications due to your low blood pressures: torsemide, losartan and amlodipine, please do not take these until your primary care physician follows up and tells you to restart them. - I ordered outpatient follow-up with dermatology regarding the mole on your right ankle. *FINANCIAL DISCLOSURE: A list of dialysis units (that patient/family geographically resides or requests) has been provided to and reviewed with patient/family. Disclosure of [facility]'s financial interestin [facility], [facility], [facility], and/or [facility], as well as [facility], was provided to and acknowledged by patient and family. Out Patient Dialysis: Where: [facility], [address], [place] [address] When: Thursday, , and Thursday Start: Friday March 03, 2023 @ 7:15 am Please bring Two Forms of Identification and your Insurance Card. You will want to bring your own pillow and blanket as these are not provided in the dialysis unit. * Discharge Instr - Diet* Radha Charles RDN - 02/23/2023 10:36 AM CDT NUTRITION Nutrition dismissal summary completed by: Radha Charles RDN Date Completed: 02/23/2023 Phone contact: Height: 162 cm Weight: 87 kg Admission Weight: 87 kg BMI (Calculated): 33.2 kg/m?? Diet Order: Renal 80 gram protein, 90 mEq sodium, 60 mEq potassium, low phosphorus We are trialing a smoothie with protein powder for patient. Estimated Needs: Total Calorie Needs: 7150-0424 calories/day Method to Estimate Energy Needs: [place] Jeor ( Basal to Basal + 20% ) Weight Used for Equation Calculations: 87 kg Total Protein Needs: 76 - 88 grams/day Method to Estimate Protein Needs (g/kg): 1.2 - 1.4 gm/kg Weight Used to Calculate Protein Needs (Kg): 63 kg Medical food supplement(s) of choice Vitamin-mineral supplementation, Nutrition Discharge Plan: Patient was assessed as moderately malnourished during this hospitalization based upon the ASPEN criteria. Discharge facility electric sign assembler to monitor patient and adjust nutrition plan as indicated * Attachments The following attachments cannot be sent through Care Everywhere. * Basics of Hemodialysis (Greek) documented in this encounter Medications at Time of Discharge Medication Sig Dispensed Refills Start Date End Date aspirin [address] tablet Take 1 tablet by mouth daily. 0 BD Ultra-Fine Short Pen Needle 31 gauge x 5/16 needle Inject 4 Injection under the skin daily. 400 each 3 12/25/2022 blood-glucose meter,continuous (Dexcom G7 Secretary) misc Use as directed 3 (three) times [...] Insulin) 100 unit/mL (3 mL) injection Inject 12 Units under the skin at bedtime. 15 mL 3 09/30/2022 03/10/2023 multivitamin renal failure (DIALYVITE) 100-1 mg tablet TAKE 1 TABLET BY MOUTH DAILY WITH DINNER 30 tablet 1 04/06/2021 03/10/2023 pramipexole (MIRAPEX) 0.125 mg tablet Take 1 tablet (0.125 mg total) by mouth at bedtime. 90 tablet 3 02/03/2023 03/03/2023 documented as of this encounter Progress Notes * Gibran Torres M.D. - 03/01/2023 12:01 PM CDT T Medicine 3 ([facility]) Supervisory Progress Note I saw and evaluated Ms. Concetta Medina on Medicine rounds today and agree with the findings and plan as documented in today's documentation by my resident physician colleague with the following comments: # subacute progressive generalized weakness with prominent orthostatic component, improved w converting PD to HD and holding antihypertensive # ESRD on IHD (converted from PD on February 25) # macrocytic anemia # SHAMIKA not on CPAP, recent PSG (but results not available) # restless legs syndrome on pramipexole (iron stores adequate) # constipation # diabetes mellitus type 2 # hypertension She continues to improve and has been able to walk more. We are planning towards dismissal to home with ongoing HHC and supports, and she is medically readyfor dismissal today. Blood pressure has remained under reasonable control after holding her home amlodipine and losartansince admission and will now be managed primarily with HD. Reviewed with patient Please refer to my resident physician colleague's documentation dated today for additional details about our team's plan of care. * Marlin Brennan P.T.A. - 03/01/2023 9:24 AM CDT Physical Therapy Inpatient Treatment Note SUBJECTIVE Patient's Name: Concetta Medina Referring/Attending: Gibran Torres M.D. Medical Diagnosis: Weakness General [R53.1] Reason for Referral: PT Evaluate and Treat Payor: MEDICARE / Plan: MEDICARE A AND B / Product Type: Medicare / OBJECTIVE Vitals stable per chart review. Vitals not formally assessed during session. No concerns during chart review and the patient had nosigns or symptoms consistent with vital changes during therapy session. Treatment consisted of: Sit to Stand Transfers # of Assistants: 1 Transfer Surface: Chair, Bed Transfer Equipment: Gait belt, Front wheeled walker Level of Assistance: Supervision/set-up, Modified Independent Assessment/Delivery: Assessed, Facilitated, Instructed Comments: Demonstrated safe hand placement without prompts. Elicits mild effort, no instability with transfer bed to chair. Stand to Sit Transfers # of Assistants: 1 Transfer Surface: Chair Transfer Equipment: Gait belt, Front wheeled walker Level of Assistance: Supervision/set-up, Modified independent Assessment/Delivery: Assessed, Facilitated, Instructed Comments: self endorses proper walker management, no cues offered for elicited hand placement to armrests. Car Transfers Comments: Initiate education for method of car transfer in passenger seat of Naomi Sims. Patients reports good understanding to push seat back and to sit and then pivot into car. Education provided this session: Discuss with patient discharge plans. She will be receiving [facility], discuss option of PT to progress stability to return to 4ww or cane for mobility. She expressed interest to see if able to get PT in home. This is relayed to services. Handouts provided today: Exercises for the Legs (Sitting) ([id number]) Patient was left in bedside chair at end of session with call light in reach, all needs met and questions answered. Outcome Measures [facility] Inpatient Short Form: -[facility] Basic Mobility (V.2) How much help from another person do you currently need???If the patient hasn't done an activity recently, how much help from another person do you think he/she would needif he/she tried? 1. Turning from your back to your side while in a flat bed without using bedrails?: A Little 2. Moving from lying on your back to sitting on the side of a flat bed without using bedrails?: A Little 3. Moving to and from a bed to a chair (including a wheelchair)?: None 4. Standing up from a chair using your arms (e.g., wheelchair, or bedside chair)?: None 5. To walk in hospital room?: A Little 6. Climbing 3-5 steps with a railing?: A Lot -[facility] Basic Mobility (V.2) Raw Score: 19 -[facility] Basic Mobility (V.2) Standardized Score: 42.48 Interpretation: Clinicians answer the AM-PAC Inpatient Short Form based on observed patient activity and/or clinical judgement (ie. patient can be scored without physically performing each activity) Based on scoring guidelines using the raw score value: Those going to home had an average score at or above 18 Those going to facility had an average score at or below 17 Assessment Discharge Therapy Needs - PT: Ongoing skilled physical therapy Skilled therapy can include physical therapy provided by home health, outpatient clinic, or a post-acute facility. The location of these services is determined by the patient's care team in partnership with patient/family. Level of Care Needed - PT: Assistance with walking and moving around the home, Assistance with transfers (Comment) (appears could be or close modified independent with effort and time with FWW.) Equipment Recommended - PT: Front-wheeled walker Front wheeled walker. Barriers to Discharge Home: Current functional status, Safety concerns Barriers to Discharge Comments: Patient currently has difficulty setting up her dialysis and meals due to weakness and decreased activity tolerance From a physical therapy perspective, the level of care above has been recommended for Ms. Medina after hospital discharge. This level of care is based on her functional abilities during today's session. This may change throughout the hospital course and will be updated as appropriate. Clinical Impression of today's session: Patient visiting with regarding details of discharge home today with [facility] and Home dialysis starting 03/03/23. At this time she prefers to use her front wheeledwalker at home for mobility. Side Sawyer provides patient with the Seated Home Exercises Handout and discuss with patient option of home PT if would like to continue to improve balance/strength to consider progression to her 4ww or cane. She expressed interest in [facility] PT if able. She has a daughter to lives nearby and son who comes weekly to assist her. Plan is for patient to discharge today. If unableplan to continue to improve gait and balance to progress to least restrictive assistive device. Rehab potential: Ms. Medina has potential to achieve established physical therapy goals within the time frame outlined below. Progress: Progressing toward goals Functional Goals and Time frames: PT Inpatient Goals PT Goal #1: Patient will demonstrate the ability to perform bed mobility with bed flat, without useof bed features to progress towards prior level of function and facilitate safe discharge home. PT Goal #1 Status: Progressing PT Goal #2: Patient will demonstrate the ability to perform all transfers with modified independence with least restrictive assistive device to progress towards prior level of function and facilitatesafe discharge. PT Goal #2 Status: Progressing PT Goal #3: Patient will demonstrate the ability ambulate for 50 m with modified independence with least restrictive assistive device to progress towards prior level of function and facilitate safe discharge. PT Goal #3 Status: Progressing Plan Patient agrees with the plan of care and goals. Treatment Plan: Plan: Continue with current plan PT Frequency: PT Amount: 1 visit per day PT Frequency: 5 times per week Requires Inpatient Follow-Up: Yes PT - Next Inpatient Appointment: 03/02/23 PT Plan Comments: Progress ambulation distance, consider trial withuse of 4 wheeled walker, progress to balance TherEx. Treatment interventions may include: Treatment/Interventions: Therapeutic exercise, Therapeutic functional activity, Therapeutic modalities as needed, Neuromuscular re-education, Gait training TERRITORY SALES MANAGER Visit Trackin Billing: Time Spent with Patient Therapeutic Interventions Therapeutic Activity (min): 6 min Time Tracking Total Timed Units (min): 6 min Total Treatment Time (min): 6 min NO BILLABLE MINUTES WERE CHARGED FOR THIS SHORT SESSION. Marlin Brennan P.T.A. Associated attestation - Segundo Cameron P.T., D.P.T. - 03/02/2023 7:48 AM CDT The patient has dismissed from the hospital. Current functional status is documented in this note. Further skilled therapy is recommended at this time. Patient is discharged from acute physical therapy. Segundo Cameron P.T., D.P.T. * Gibran Torres M.D. - 02/28/2023 4:46 PM CDT RST Medicine 3 ([facility]) Supervisory Progress Note I saw and evaluated Ms. Concetta Medina on Medicine rounds today and agree with the findings and plan as documented in today's documentation by my resident physician colleague with the following comments: # subacute progressive generalized weakness with prominent orthostatic component, improved w converting PD to HD and holding antihypertensive # ESRD on IHD (converted from PD on February 25) # macrocytic anemia # SHAMIKA not on CPAP, recent PSG (but results not available) # restless legs syndrome on pramipexole (iron stores adequate) # constipation # diabetes mellitus type 2 # hypertension She continues to improve and has been able to walk more. We are planning towards dismissal to home with ongoing HHC and supports, and she should be ready for dismissal tomorrow. Blood pressure has remained under reasonable control after holding her home amlodipine and losartansince admission and will now be managed primarily with HD. Reviewed with patient Please refer to my resident physician colleague's documentation dated today for additional details about our team's plan of care. I spent 25 minutes face to face and non-face to face caring for the patient today. * Ne Yuan O.Robert. - 02/28/2023 4:29 PM CDT Occupational Therapy Acute Hospital Inpatient Treatment SUBJECTIVE Patient's Name: Concetta Medina Referring/Attending Provider: Gibran Torres M.D. Medical Diagnosis: Weakness General [R53.1] Reason for Referral: Occupational Therapy Evaluation and Treatment General Acute OT Onset Date: 02/22/23 Payor: MEDICARE / Plan: MEDICARE A AND B / Product Type: Medicare / History of Present Illness:Ms. Concetta Medina is a 77 y.o. female with medical comorbidities including: ESRD (daily peritoneal dialysis), DM2 (on insulin), secondary renal hyperparathyroidism, personal history of breast cancer, HTN, HLD, SHAMIKA, and restless leg syndrome who presented with general weakness. Family/Caregiver Present: No Patient/Caregiver Goals: to return home with increased assistance Patient Comments: Agreeable to occupational therapy despite being tired from dialysis. Denies pain during the session. Precautions Other Precautions: Fall, monitor blood pressure OBJECTIVE Vitals stable per chart review. Bathing Bathing Comments: Discussed options for bathroom safety adaptive equipment, and methods to obtain. Recommended a potential use of a shower chair if it will fit in her sq walk-in shower. Recommended agrab bar to assist with increased safety when stepping in and out of the shower. Reviewed the bathroom safety folder and discussed options as able. Encouraged her to read through the fall prevention h andout and home safety checklist for improved safety upon returning to home. Recommended that the patient have supervision/assistance with bathing until she is completely independent and risk of falls the patient reported understanding of recommendation and will plan to have her family or caregiverassist her. Adaptive Interventions Activity Modification/Work Simplification: The patient was provided with the saving your energy book. Patient read the entire book and reported understanding of the concepts and plans to initiate afew new activities. She reported that she has been utilizing many of the concepts already with her renal disease. Adaptive Intervention/Education: Patient was educated on activity modification and how to apply those techniques to activities of daily living., Patient was educated on energy conservation and how toapply those techniques to activities of daily living. ADL Comments ADL Comments: Discussed safe methods to obtain items off of the floor by utilizing the senior business broker, or asking for assistance. The patient has a watch that is able to call 911 with a push one button. Kitchen Mobility Kitchen Mobility Comments: The patient reported that he is concerned about her ability to obtain meals when she returns home. The patient has been problem- solving with the family they are assistance with obtaining easy meals. Her insurance does not cover ???mom's meals. Discussed potential meals on wheels, choosing items at the grocery started that are easy to make, breathing eating possible meals that her family makes for her, or having her caregiver/cleaning person assist with meals as needed. The patient expressed that all options are being followed by her family and they will make sure that she is able to have food when she is home. Handouts provided today: Bathroom Safety Equipment [id number], Preventing Falls [id number], Home Safety Suggestions [id number] Team Communication: Patient's nurse was contacted and patient's status was discussed Outcome Measures [facility] Inpatient Short Form: Putting on and taking off regular lower body clothing?: A Little Putting on and taking off regular upper body clothing?: None Taking care of personal grooming such as brushing teeth?: None Bathing (including washing, rinsing, drying)?: A Little Toileting, which includes using toilet, bedpan, or urinal?: None Eating meals?: None Daily Activities Raw Score (max 24): 22 Daily Activities Standardized Score: 47.1 Interpretation: Clinicians answer the AM-PAC Inpatient Short Form based on observed patient activity and/or clinical judgement (ie. patient can be scored without physically performing each activity) Based on scoring guidelines using the raw score value: Those going to home had an average score at or above 18 Those going to facility had an average score at or below 17 Patient was left in bed at end of session with call light in reach, all needs met and questions answered. Assessment Discharge Therapy Needs - OT: Ongoing skilled occupational therapy (pending progression) Skilled therapy can include occupational therapy provided by home health, outpatient clinic, or a post-acute facility. The location of these services is determined by the patient's care team in partnership with patient/family. Level of Care Needed - OT: Assistance with shopping, Assistance with housekeeping, Assistance with transportation, Assistance with meal preparation, Assistance with showering/bathing Recommended Adaptive Equipment - OT: Toilet safety frame Barriers to Discharge Home: Current functional status, Safety concerns Barriers to Discharge Comments: Patient currently has difficulty setting up her dialysis and meals due to weakness and decreased activity tolerance Clinical Impression: Upon arrival, the patient was at the edge of the bed. She agreeable to occupational therapy. The patient reported that she had was just back from dialysis, and very tired. To was engaged in activities discussing safe techniques for tub transfer, provided meals at home that she can manage, bathroom safety adaptive equipment recommendations, and activity modification techniques. She continues to function below her baseline although is making very good progress. Due to the patient's fatigue, was not able to actually practice getting dressed, and obtaining items in/out of the shower and simulate tub transfers. The patient remains appropriate for ongoing occupational therapy during this hospitalization as well as post acute to address increasing independence and safety with self cares to maximum level to assist with improved quality of life and to promote living in the least restrictive environment. Rehab potential: Ms. Medina has good potential to achieve established occupational therapy goals within the time frame outlined below. Functional Goals: OT Goal #1 Status: Ongoing OT Goal #2 Status: Ongoing Progress: Progressing toward goals Plan Occupational Therapy Attestation Statement: Patient agrees with the plan of care and goals. OT Frequency: OT Amount: 1 visit per day OT Frequency: 5 times per week OT Inpatient Duration : Until goals are met or hospital discharge Requires Inpatient OT Follow-Up: Yes OT - Next Inpatient Appointment: 03/02/23 Plan: Continue with current plan OT Plan Comments: Next session:clothing retrieval and dressing endurance, discussing support at home for bathing safety Treatment interventions may include: Treatment Interventions: Therapeutic exercise, Therapeutic functional activity, Self-care/home management, Cognitive skills training Billing: Time Spent with Patient Therapeutic Interventions Home Management Training (min): 36 min Time Tracking Total Timed Units (min): 36 min Total Treatment Time (min): 36 min Ne Yuan O.T. * Marlin Brennan P.T.ALeida - 02/28/2023 3:18 PM CDT 02/28/23 1517 Reason Therapy Missed Reason Therapy Missed At test/procedure (Pt at dialysis, plan to see patient 03/01/23 to prepare for discharge home Thursday.) Jean OwensTEvangelista * Radha Jean M.D. - 02/28/2023 12:48 PM CDT NEPHROLOGY CONSULT SERVICE - PROGRESS NOTE Hospital Day 6 SUBJECTIVE I saw Ms. Medina today during dialysis. She denies any complaints. She tolerated dialysis well OBJECTIVE VITAL SIGNS Admission weight: 87 kg Weights for the past 120 hrs (Last 3 readings): Weight 02/28/23 1100 85 kg 02/28/23 0752 85.9 kg 02/27/23 0800 84 kg I/O 02/27 0000 02/27 2359 02/28 0000 02/28 2359 P.O. 580 50 Intermittent Medications 250 Total Intake(mL/kg) 580 (6.9) 300 (3.5) Urine (mL/kg/hr) 500 (0.2) 150 (0.1) Stool 0 Total Output 500 150 Net +80 +150 Unmeasured Stool Occurrence 1 x Temperature: [36.2 ??C-37 ??C] 36.2 ??C Resp Rate: [16-20] 16 Blood Pressure: (103-148)/(40-54) 139/40 SpO2: [91 %-100 %] 95 % Pulse Rate: [70-88] 83 PHYSICAL EXAMINATION General appearance: alert and interactive and cooperative Lungs: normal respiratory effort Heart: normal S1, S2; no murmur, gallop or rub Abdomen: benign, soft Extremities: no edema Hemodialysis Catheter Permanent (tunneled, implanted) Right Chest (Active) Placement Date/Time: 02/25/23 0830 Line Type (REQUIRED): Permanent (tunneled, implanted) ProceduralPause Completed: Yes Optimal Site Selected: Yes Catheter Time Out Checklist Completed: Yes Hand Hygiene Performed Prior to Insertion: Yes Site P... 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 Medina is a 77-year-old female with history of type 2 diabetes, end-stage kidney disease, hypertension, obstructive sleep apnea, breast cancer who was hospitalized for generalized weakness. Etiology thought to be related to inability to keep up with peritoneal dialysis at home, difficulty managing PD, orthostatic and difficulty with some ADLs status meal prep. Patient was switched to hemodialysis on 02/26/2023. Ms. Medina his dialysis today, tolerated well he denies any complaints. Recommendations: - will continue dialysis on TTS schedule - Family will provide transportation to outpatient dialysis on TTS schedule at [facility]. First outpatient dialysis session to occur on 03/03/2023 -- No need for potassium restriction at this time. Mild hypokalemia can be repleted in her diet today. -- Obtain renal function panel tomorrow AM with labs -- We will set new dry weight on hospital discharge -- Continue holding antihypertensive medications at this time as we are working to establish a new EDW -- Obtain iron studies including ferritin and % sat. We will evaluate for any need for iron with dialysis and plan for KAREN dosing accordingly Continued Recommendations: -- Document strict intake and output -- Adult regular diet and 1.5 L fluid restriction -- Renally dose-adjust all medications for ESKD status -- Oral calcium acetate 667 mg 3 times daily with meals for phosphorus binding. If at any time she is NPO please hold this medication. -- Weekly PD catheter flush (inpatient will be done by dialysis nursing staff). On hospital discharge, this will be done at outpatient dialysis unit. -- Daily PD catheter exit site care: wash with soap and water, followed by application of 0.1% gentamicin cream (to be done by patient and bedside nursing staff) Radha Jean M.D. Nephrology Fellow, PGY-6 Case discussed with supervising physician, Dr. Turner * Yolanda Bustos M.D. - 02/28/2023 6:09 AM CDT MEDICINE 3 PROGRESS NOTE SUBJECTIVE Ms. Medina is a 77 y.o. female with T2DM (insulin-dependent) c/b ESRD on PD 2/2 T2DM ad secondary hyperparathyroidism, HTN, HLD, SHAMIKA, RLS, and breast cancer who is hospitalized on [facility] ([facility]) for generalized weakness. Ms. Siobhan Medina was seen at the bedside this morning. There were no acute overnight events. Today she feels well, she has no concerns other than touching base with social work for meal delivery at home. BP wide pulse pressure 115-153/46-54, afebrile. Net even yesterday. Last BM 02/27. AM labs significant for Hb 8.6 (9.0), Na 132, K 3.9, Cr 10.19. Iron studies with ferritin 1291. She is getting HD today. I have reviewed the current medication list. OBJECTIVE VITAL SIGNS Temperature: [36.8 ??C-37 ??C] 36.8 ??C Resp Rate: [12-20] 18 Blood Pressure: (132-153)/(46-54) 134/54 SpO2: [91 %-97 %] 91 % Pulse Rate: [72-85] 74 Intake/Output Last 24 Hours: Intake/Output Summary (Last 24 hours) at 02/28/2023 0610 Last data filed at 02/28/2023 0600 Gross per 24 hour Intake 580 ml Output 650 ml Net -70 ml PHYSICAL EXAM General: elderly female, awake, alert, in no acute distress, seen in dialysis suite. Cardiovascular: RRR, no murmurs appreciated Pulmonary: breathing comfortably on room air Abdomen: non-distended Extremities: Warm and well perfused, no lower extremity edema Neurological: AAOx3 DIAGNOSTICS Recent Labs 02/27/23 0440 NA 133 L CL 95 L BICARB 24 MG 1.8 CALCIUM 9.1 BUN 28 H CREATININE 8.49 H GLUCOSE 116 ALBUMIN 3.5 HGB 9.0 L HCT 27.8 L WBC 8.3 PLT 218 Imaging None new ASSESSMENT / PLAN Ms. Medina is a 77 y.o. female with T2DM (insulin-dependent) c/b ESRD on PD 2/2 T2DM ad secondary hyperparathyroidism, HTN, HLD, SHAMIKA, RLS, and breast cancer who is hospitalized on [facility] ([facility]) for generalized weakness. Etiology is multifactorial and includes difficulty with home PD and orthostasis. Patient receiving HD today. Has plan for dispo tomorrow and HD starting Thursday. Today: - HD today - Will HOLD BP medications here and have patient follow up with her family doctor to assess continued need for BP control. - Scheduling PCP and Dermatology appointments - Will reach out to CM/SW regarding patient's concerns #Weakness General #Dialysis Peritoneal Status (HCC) #End Stage Renal Disease on Peritoneal Dialysis #Diabetes Mellitus Type 2 With Diabetic Nephropathy (HCC) - Etiology most likely inability to keep up with PD at home, orthostasis, and difficulty with some ADLs such as meal prep - Increased oral calcium acetate to 1334 mg TID with meals for phosphorus binding 02/23 - Strict Is/Os, daily weights - PT/OT consulted, home health approved - CM consulted to help with home health, food, and dialysis transport - Neph consulted: - Transitioned from PD to iHD - TDC placed by IR 02/25, received first HD session same day - Plan is to do //Thu HD at [facility] as an outpatient - Will need to arrange transport to dialysis - CM involved #Hypokalemia - Replete K prn #Constipation - MiraLAX BID - Senna 2 tabs BID #Chronic back pain - low suspicion for vertebral osteomyelitis #Macrocytic Anemia - Suspect 2/2 chronic renal failure +/- anemia of chronic disease - B12/folate not low - Reticulocyte index 1.12 (hypoproliferation) - No evidence of liver disease - TSH wnl - Continue home multivitamins - Not currently on EPO #Restless Leg Syndrome - Continue pramipexole #Hypertension #Orthostatic hypotension - Holding home losartan, amlodipine, PCP to follow up - if PCP restarts antihypertensive, please preference losartan given kidney disease - compression stockings - resumed torsemide 7.5 mg bid 02/24 #Hyperlipidemia - Holding pravastatin 40 mg (myalgias with atorvastatin) #Apnea Sleep Obstructive - No on CPAP at home #T2DM - glargine 6 U qhs - mod SSI Current Activity/Mobility: BMAT Level 4 (Able to stand and walk; needs staff assist if fall risk factors identified) Diet: Adult Diet Regular; 1500 mL Fluid (phosphorous restriction, does not need for dialysis diet) diet Tubes/lines: PIV VTE prophylaxis: heparin Disposition: Uncertain with expected discharge date 03/01/2023 Surrogate Decision Maker: Child, Radha Medina (daughter, ) Stable to discharge criteria (not met): Functional status Non-severe (moderate) Malnutrition The patient meets the ASPEN Criteria of malnutrition based on: Average estimated Intake: Less than or equal to 75% for 1 or more months Weight Loss: No Change (She has had weight loss, but not clinically significant.) Body Fat: Normal Muscle Mass: Mild Loss This is in the context of Chronic Illness. Malnutrition Present Upon Admission: Yes Agree with Registered Dietitian's assessment and treatment plan: Nutrition Interventions Interventions: Medical food supplement, Vitamin and mineral supplements Plan discussed with [facility] Medicine 3 ([facility]) Allocation Analyst, Gibran Martini M.D., who was present during sepulveda portions of the evaluation today. Please page the [facility] Medicine 3 ([facility]) service pager at [phone] with any questions. Yolanda Bustos MD Anesthesiology and Perioperative Medicine PGY-1 Pager #[phone] * Gibran Torres M.D. - 02/27/2023 7:36 PM CDT R[facility] Medicine 3 ([facility]) Supervisory Progress Note I saw and evaluated Ms. Concetta Medina on Medicine rounds today and agree with the findings and plan as documented in today's documentation by my resident physician colleague with the following comments: # subacute progressive generalized weakness with prominent orthostatic component # ESRD on peritoneal dialysis (converted to hemodialysis February 25) # macrocytic anemia # SHAMIKA not on CPAP, recent PSG (but results not available) # restless legs syndrome on pramipexole (iron stores adequate) # constipation # diabetes mellitus type 2 # hypertension She did have some orthostatic lightheadedness which seem to dissipate with continued upright position and overall continues to improve. We are planning towards dismissal to home with ongoing HHC and supports. Referrals have been sent and we are making progress on logistics with timing of her dialysis and transportation. She will dialyze here tomorrow and likely dismiss on Thursday with her 1st outpatient dialysis on Thursday. Blood pressure has remained under reasonable control after holding her home amlodipine and losartansince admission. She remains on a low dose of torsemide 7.5 mg b.i.d. with only a small amount of urine output, and we will plan to D/C this as volume will be managed with HD. Reviewed with patient Please refer to my resident physician colleague's documentation dated today for additional details about our team's plan of care. I spent 25 minutes face to face and non-face to face caring for the patient today. * Asmita Vasquez, PharmLeidaD., R.Ph. - 02/27/2023 3:22 PM CDT Pharmacist Progress Note Reason for admission: generalized weakness PMH: ESRD (daily peritoneal dialysis), DM2 (on insulin), secondary renal hyperparathyroidism, history of breast cancer, HTN, HLD, SHAMIKA, RLS OBJECTIVE Home medications (will confirm with patient today when able) Held: amlodipine, fish oil, losartan Changed: insulin glargine (reduced dose) New: SSI VTE Prophylaxis: heparin 5,000 units q8 hours Renal function: Estimated Creatinine Clearance: 5.6 mL/min (A) (by C-G formula based on SCr of 8.49 mg/dL (H)). ASSESSMENT / PLAN Weakness: Unclear etiology. Progressive weakness over past few months. TTE unremarkable. -Bartonella serologies and PCR negative. Checked as has multiple cat scratches. -Concern for orthostatic hypotension. Restarted torsemide as has residual kidney function with UOP.Holding amlodipine and losartan. -Vitamin B12 and folate normal -Medications evaluated for causes of weakness outside of orthostatic hypotension, none identified at this time Peritoneal dialysis/ESRD: Neph consulted. Too weak to complete peritoneal dialysis at home. Continued home phosphate binder and renal MV. Medications evaluated for renal adjustment. -Gathering cultures from PD to assess for infection. Cultures ngtd. -Transitioned to iHD -Reduced phosphate binder with transition to iHD and decreases in phosphate levels with transition -PD port still appears to be in place, therefore will need to continue gentamicin cream. T2DM: A1c 6.4 % (12/2022). Continued insulin glargine (reduced dose) + SSI. Continued pravastatin (myalgias with atorvastatin). RLS: continued pramipexole. Previously trialed gabapentin, however experienced excessive fatigue per chart review. Asmita Vasquez Pharm.D., R.Ph. * Marissa Arguelles APRN, C.N.P., D.N.P. - 02/27/2023 2:19 PM CDT NEPHROLOGY CONSULT SERVICE - PROGRESS NOTE Hospital Day 5 SUBJECTIVE I saw Ms. Medina in her hospital room today. During my visit, she was seated in her room recliner eating breakfast. She reports feeling well today and notes dialysis went well yesterday from her perspective. Endorses some dyspnea on exertion but currently denies chest pain, nausea, dizziness, dyspnea, and muscle cramps. Denies abdominal pain or constipation. She tells me she isn't making much urine. She is in agreement with the plan for dialysis tomorrow and denies questions or concerns for Nephrology. I have reviewed: current medication list, vital signs, intake/output, and recent diagnostic testing. OBJECTIVE Admission weight: 87 kg Weights for the past 120 hrs (Last 3 readings): Weight 02/27/23 0800 84 kg 02/26/23 1007 84 kg 02/26/23 0751 85.3 kg I/O 02/26 0000 02/26 2359 02/27 0000 02/27 2359 P.O. 480 340 Intermittent Medications 250 Total Intake(mL/kg) 730 (8.7) 340 (4) Urine (mL/kg/hr) 100 (0) 200 (0.2) Stool 0 Dialysis 750 Total Output 850 200 Net -120 +140 Unmeasured Urine Occurrence 1 x Unmeasured Stool Occurrence 2 x VITAL SIGNS Vitals 02/25/23 02/26/23 Pre-Dialysis BP (Calculated) 128/47 131/60 Post-Dialysis BP (Calculated) 129/52 128/55 Lowest BP of Encounter/Session (Calculated) 94/55 111/70 Pre-Treatment Weight (kg) 84.4 kg 85.3 kg Post-Treatment Weight (kg) 84.4 kg 84 kg Treatment Weight Change (kg) (kg) -1.3 Requested UF Volume (mL) (mL) 250 750 Total UF Removed (mL) (mL) 250 750 Intra-Hemodialysis Comments orders changed-200BFR,90mins,0ml UF, 400 dialysate rate Treatment Tolerance No Complications No Complications PHYSICAL EXAM General: Alert, oriented, answering questions appropriately. Sitting in the room recliner. In no acute distress. Respiratory: Respirations unlabored. Breathing on room air. Extremities: No pitting edema present in bilateral lower extremities. Abdomen: PD catheter covered by gauze dressing which is clean and dry. Nontender on palpation. Vessels: R tunneled hemodialysis catheter exit site free from erythema and drainage. Generalized ecchymosis surrounding catheter area. Nontender. Hemodialysis Catheter Permanent (tunneled, implanted) Right Chest (Active) Placement Date/Time: 02/25/23 0830 Line Type (REQUIRED): Permanent (tunneled, implanted) ProceduralPause Completed: Yes Optimal Site Selected: Yes Catheter Time Out Checklist Completed: Yes Hand Hygiene Performed Prior to Insertion: Yes Site P... Number of days: 2 DIAGNOSTICS Results from last 7 days Lab Units 02/27/23 0440 02/26/23 0543 HEMOGLOBIN g/dL 9.0* 8.3* WBC x10(9)/L 8.3 8.3 PLATELETS AUTO x10(9)/L 218 217 Last 2 results Lab Units 02/27/23 0440 02/26/23 0543 SODIUM mmol/L 133* 137 POTASSIUM mmol/L 3.5* 3.7 BICARBONATE S mmol/L 24 23 BUN mg/dL 28* 40* CREATININE mg/dL 8.49* 11.37* CALCIUM mg/dL 9.1 9.0 PHOSPHORUS INORGANIC mg/dL 3.6 3.9 MAGNESIUM mg/dL 1.8 2.1 ASSESSMENT / PLAN # End stage kidney disease secondary to diabetic nephropathy, maintained on peritoneal dialysis since 08/15/2020 and transitioned to hemodialysis 02/25/2023 # Admitted on 02/22/2023 for progressive with subacute weakness and fatigue # Hypertension # Chronic anemia related to end stage kidney disease # Hypokalemia, mild Ms. Medina underwent her 2nd session of hemodialysis yesterday for 2 hours and tolerated 500 mL fluidremoval without difficulty. Her post weight was 84 kg. There is no acute indication for dialysis today. We will plan for dialysis tomorrow. New Recommendations: -- Hemodialysis tomorrow morning -- Discontinue small dose oral torsemide for now as we can manage volume status with fluid removal on dialysis -- Family will provide transportation to outpatient dialysis on TTS schedule at [facility]. First outpatient dialysis session to occur on 03/03/2023 -- No need for potassium restriction at this time. Mild hypokalemia can be repleted in her diet today. -- Obtain renal function panel tomorrow AM with labs -- We will set new dry weight on hospital discharge -- Continue holding antihypertensive medications at this time as we are working to establish a new EDW -- Obtain iron studies including ferritin and % sat. We will evaluate for any need for iron with dialysis and plan for KAREN dosing accordingly Continued Recommendations: -- Document strict intake and output -- Adult regular diet and 1.5 L fluid restriction -- Renally dose-adjust all medications for ESKD status -- Oral calcium acetate 667 mg 3 times daily with meals for phosphorus binding. If at any time she is NPO please hold this medication. -- Weekly PD catheter flush (inpatient will be done by dialysis nursing staff). On hospital discharge, this will be done at outpatient dialysis unit. -- Daily PD catheter exit site care: wash with soap and water, followed by application of 0.1% gentamicin cream (to be done by patient and bedside nursing staff) Dismissal Planning: -- Please keep Nephrology informed of dismissal plans to ensure outpatient hemodialysis is arrangedappropriately prior to hospital dismissal. -- Dialyzed in recliner 02/26/2023 without difficulty, fulfilling this outpatient dialysis requirement -- She has been accepted to [facility] Unit on a Thursday, , Thursday dialysis schedule at 7:15 am. It is my understanding family will provide transportation. Ms. Medina's case has been staffed with Dr. Elise, Nephrology environmental consultant. For questions or concerns, please contact the Nephrology C service at [phone]. * Mine Matt, O.T., MOT - 02/27/2023 2:10 PM CDT Occupational Therapy Acute Hospital Inpatient Treatment SUBJECTIVE Patient's Name: Concetta Medina Referring/Attending Provider: Gibran Torres M.D. Medical Diagnosis: Weakness General [R53.1] Reason for Referral: Occupational Therapy Evaluation and Treatment General Acute OT Onset Date: 02/22/23 Payor: MEDICARE / Plan: MEDICARE A AND B / Product Type: Medicare / History of Present Illness:Ms. Concetta Medina is a 77 y.o. female with medical comorbidities including: ESRD (daily peritoneal dialysis), DM2 (on insulin), secondary renal hyperparathyroidism, personal history of breast cancer, HTN, HLD, SHAMIKA, and restless leg syndrome who presented with general weakness. Family/Caregiver Present: No Patient/Caregiver Goals: to return home with increased assistance Patient Comments: Patient in bed at arrival, agreeable to OT session. Denies pain during session; she expresses some lightheadedness with initial stand but reports this to resolve after approximately1 minute. Fall Risk (65 and older) Fall in the last 12 months: No Are you fearful of falling?: No Precautions Other Precautions: Fall, monitor blood pressure OBJECTIVE Patient vitals monitored throughout session. Oxygen saturations within normal level on room air. Blood pressure after activity: 149/54 mmHg (MAP 77). Cognition Cognitive assessment method: Therapist observations Arousal/Alertness: Appropriate responses to stimuli Attention: Addressed, no concerns noted Initiation: No difficulty with initiation Orientation: Oriented X4 Following Commands: Follows all commands/directions without difficulty Cognition Comments: Patient questioned regarding transportation needs to / from dialysis. She expresses it is all worked out when asked specifics she states her children are working on it. She additionally was observed attempting to setup home meals with her insurance plan - although unsuccessfulshe states as her insurance does not cover it. Will continue to monitor her cognition and problem-solving. Grooming Grooming Location: Standing at sink Grooming Delivery: Assessed, Facilitated, Therapist assisted, Educated Grooming Level of Assistance: Supervision/Set-up Grooming Comments: Facilitated standing oral hygiene cares at sink. Educated option to modify activity into seated or to have seat (or toilet) nearby for seated rest break if needed. Bathing Bathing Delivery: Educated Bathing Comments: Educated on importance of utilizing shower chair for safety with bathing. LE Dressing LE Dressing Location: Chair, Seated on edge of bed LE Dressing Delivery: Assessed, Facilitated, Educated LE Dressing Level of Assistance: Supervision/Set-up LE Dressing Comments: Educated on utilizing senior business broker to increase ease with task. Faciltiated donningpants and socks, and patient doffed pants from chair at end of session. No physical assist with task. ADL Comments ADL Comments: Facilitated discussion for home safety including having throw rugs removed due to fall risk. Discussed IADL cleaning and patient expresses she is planning to have a home general cleaner come weekly to assist with laundry/cleaning. Bed Mobility - Supine to Sit # of Assistants: 0 Level of Assistance: Modified Independent Device: Head of bed elevated Sit to Stand Transfers # of Assistants: 1 Transfer Surface: Chair, Bed Transfer Equipment: Gait belt, Front wheeled walker Level of Assistance: Supervision/set-up Assessment/Delivery: Assessed, Facilitated, Instructed Comments: Demonstrates safe hand placement to stand, increase effort from lower bed height but ableto complete without physical assist Stand to Sit Transfers # of Assistants: 1 Transfer Surface: Chair Transfer Equipment: Gait belt, Front wheeled walker Level of Assistance: Supervision/set-up Assessment/Delivery: Assessed, Facilitated, Instructed Comments: Cues for walker management with setup and cues for safe hand placement Team Communication: Patient's nurse was contacted and patient's status was discussed Outcome Measures [facility] Inpatient Short Form: Putting on and taking off regular lower body clothing?: A Little Putting on and taking off regular upper body clothing?: None Taking care of personal grooming such as brushing teeth?: None Bathing (including washing, rinsing, drying)?: A Little Toileting, which includes using toilet, bedpan, or urinal?: None Eating meals?: None Daily Activities Raw Score (max 24): 22 Daily Activities Standardized Score: 47.1 Interpretation: Clinicians answer the [facility] Inpatient Short Form based on observed patient activity and/or clinical judgement (ie. patient can be scored without physically performing each activity) Based on scoring guidelines using the raw score value: Those going to home had an average score at or above 18 Those going to facility had an average score at or below 17 Patient was left in bedside chair at end of session with call light in reach, all needs met and questions answered. Assessment Discharge Therapy Needs - OT: Ongoing skilled occupational therapy (pending progression) Skilled therapy can include occupational therapy provided by home health, outpatient clinic, or a post-acute facility. The location of these services is determined by the patient's care team in partnership with patient/family. Level of Care Needed - OT: Assistance with shopping, Assistance with housekeeping, Assistance with transportation, Assistance with meal preparation, Assistance with showering/bathing Recommended Adaptive Equipment - OT: Toilet safety frame Barriers to Discharge Home: Current functional status, Safety concerns Barriers to Discharge Comments: Patient currently has difficulty setting up her dialysis and meals due to weakness and decreased activity tolerance Clinical Impression: Patient demonstrates progression towards her skilled OT goals this date. Remains limited this date by lightheadedness upon initiate standing that dissipates after time and engagement in self-care task. Discussed fall prevention strategy to have rest break chairs/locations, remove through rugs, utilize durable medical equipment, and increase supports. Patient lives alone and at baseline in independent in self-cares, and requires some assist for cleaning. However, she typically does cooking, medication management, and driving to appointments. Concerns exist for her availability of support for transportation to dialysis, cooking / meal support ability, and monitoring cognition / safety judgement. She expresses feeling more towards her baseline but acknowledges she is still below her normal functioning level. She will benefit from ongoing skilled OT to maximize her rehab progression to promote independence and quality of life. Rehab potential: Ms. Medina has good potential to achieve established occupational therapy goals within the time frame outlined below. Functional Goals: OT Goal #1: Patient will complete toileting task and toilet transfer with modified independence to increase patient's functional independence by discharge. OT Goal #1 Status: Ongoing OT Goal #2: Patient will complete total body dressing task with modified independence, using adaptive equipment as needed, to increase patient's functional independence by discharge. OT Goal #2 Status: Progressing OT Goal #3: Patient will verbalize understanding of recommended adaptive equipment to increase patient's safety when completing daily tasks by discharge. OT Goal #3 Status: Progressing Progress: Progressing toward goals Plan Occupational Therapy Attestation Statement: Patient agrees with the plan of care and goals. OT Frequency: OT Amount: 1 visit per day OT Frequency: 5 times per week OT Inpatient Duration : Until goals are met or hospital discharge Requires Inpatient OT Follow-Up: Yes OT - Next Inpatient Appointment: 02/28/23 Plan: Continue with current plan OT Plan Comments: Next session: home safety folder with DME recommendations and fall prevention education, clothing retrieval and dressing endurance, discussing support at home for bathing safety Treatment interventions may include: Treatment Interventions: Therapeutic exercise, Therapeutic functional activity, Self-care/home management, Cognitive skills training Billing: Time Spent with Patient Therapeutic Interventions Home Management Training (min): 30 min Time Tracking Total Timed Units (min): 30 min Total Treatment Time (min): 30 min Mine Matt O.T., MOT * Shreya Moore L.G.SBee, LLuluC.S.W., M.S.W. - 02/27/2023 11:38 AM CDT SUBJECTIVE Social work met with patient today to bridgeport back regarding transportation for patient to/from dialysis. Recap from yesterday: Patient will do T/TH/Sat dialysis runs with an arrival time of 7:15 and a 3.5 hour run. Social workhas called the following transport companies. [facility] - cannot meet this need [employer] - cannot meet this need [place] - cannot meet this need [facility] - cannot meet this need [place] - cannot meet this need [facility] - cannot meet this need [facility] ([facility]) - unable to meet needs [facility] - SW called and they asked that an email be sent with pickling operator/drop off addressesand schedule and he would provide a quote for patient. -- Social work received the following message back from [email or web address] The quote for this trip will be a total of 282.50 per a day which includes three and half hours waiting time . [facility] can make it easy for the client a week package will be $840. Social work then went andtalked with patient and she reports that she is unwilling to pay privately for transportation and will talk with family/friends to arrange for transportation to/from dialysis. She was given the contact information for [employer] and encouraged to follow up with them as necessary. She voiced understanding. Today patient reports that she spoke with her daughter last evening and reports that between son and daughter they are working it out. She was unsure what this meant exactly and did not want socialwork to call daughter or son today. She reports that she is confident they will come up with a planto get her to dialysis until she is strong enough to do it herself however patient was unable to outline what this plan would be at this time. Social work explained the need for an outlined transportation plan for dialysis at this time and while patient voiced understanding was unsure why it was anissue that there was not a detailed plan in place. Social work updated the care team who state thatthey will also talk with patient today. Daughter will transport patient to home at time of discharge per patient. OBJECTIVE Patient is medically ready to discharge after dialysis run tomorrow. ASSESSMENT / PLAN ASSESSMENT Patient was seen sitting in her recliner having just finished working with therapies. She is alert,oriented and appropriate to talk with today. Patient is guarded when talking about family and discharge/dialysis transportation during this hospitalization. Social work continues to work on relationship building with patient as able and appropriate. PLAN Patient to discharge home with home health care. Home Medical Care - Admitted Since 02/22/2023 Service Provider Selected Services Address Phone Fax Patient Preferred [facility] [address] [place], [facility] [id number] [phone] -- Sound Truck Operator: intake NURSING: - Complete documentation in the Discharge Navigator including Nursing Report Info and Facility/NextLevel of Care Info - Call report and arrange for the patient's first visit - Send After Visit Summary and required packet of dismissal information with patient, including advance directive. PRIMARY SERVICE: - Please provide a non-[facility] home health order for: physical therapy and occupational therapy in theAfter Visit Summary. - Communicate with the patient's local primary care provider by telephone for writing of home care orders. This needs to be done to help prevent discharge delays. A copy of the After Visit Summary needs to be sent there as well. SOCIAL WORK: -Will continue to follow for ongoing discharge planning needs. Lilli Buckley, Ngoc, M.S.W. 02/27/23 * DesireeJose mercedes Alisson - 02/27/2023 11:27 AM CDT [facility] Spiritual Care Progress Note Patient: Concetta Medina Age:77 y.o. Location: [id number] Reason(s) for encounter: Spiritual Care contact for ongoing spiritual care. Summary: I was able to meet with Concetta Medina. Siobhan was sitting on the chair by the bed and alert. She welcome the visit, sharing about her family, said she has two adult children who live on their own; in her words they always drive me crazy with their way of thinking, because they feel they know more than anyone else. Siobhan shared that she was at [facility] for her [facility] and hoped to leave on the weekend. She had a call from her daughter during this visit and spoke with her at length. She acknowledged the positive ways she had been treated by the workers since her admission. Spiritual Assessment Synagogue Identification / Spiritual Practices: Congregational Coping and support: Siobhan receives emotional support from her family. Spiritual well-being, hopes and resources: Siobhan thinks that God has helped her through the hands of the doctors. Spiritual Care interventions: Introduced the role as member of the interdisciplinary care team with the aim of establishing spiritual therapeutic rapport with patient and/or family Therapeutic and supportive listening was provided with the aim of allowing patient/family expression of emotions, hopes and worries regarding current medical condition and life stage. Helped patient/family identify support systems. Spiritual Care outcomes: Spiritual and emotional distress was visibly reduced during intervention. Spiritual Care Plan / Recommendations: Will remain available for spiritual care as needed or requested. Chaplains can be contacted by paging [phone] ([place]) or [phone] ([place]). * Bob Tucker, P.T.A. - 02/27/2023 10:18 AM CDT Physical Therapy Inpatient Treatment Note SUBJECTIVE Patient's Name: Concetta Medina Referring/Attending: Gibran Torres M.D. Medical Diagnosis: Weakness General [R53.1] Reason for Referral: PT Evaluate and Treat PT General acute Onset Date: 02/22/23 Payor: MEDICARE / Plan: MEDICARE A AND B / Product Type: Medicare / History of Present Illness: Ms. Concetta Medina is a 77 y.o. female with medical comorbidities including: ESRD (daily peritoneal dialysis), DM2 (on insulin), secondary renal hyperparathyroidism, personal history of breast cancer, HTN, HLD, SHAMIKA, and restless leg syndrome who presented with general weakness. Family/Caregiver Present: No Patient/Caregiver Goals: No goals stated Patient Comments: Patient sitting in bedside chair when approached by physical therapy, agreeable to treatment session. Patient denies any pain however did report lightheadedness with ambulation, vitals remained stable. Precautions Other Precautions: Fall, monitor blood pressure Fall Risk (65 and older) Fall in the last 12 months: No Are you fearful of falling?: No OBJECTIVE Vitals monitored throughout session; within normal ranges. Treatment consisted of: Bed Mobility - Supine to Sit # of Assistants: 0 Level of Assistance: Independent Bed Mobility - Sit to Supine # of Assistants: 0 Level of Assistance: Independent Sit to Stand Transfers # of Assistants: 1 Transfer Surface: Chair, Bed Transfer Equipment: Gait belt, Front wheeled walker Level of Assistance: Supervision/set-up Assessment/Delivery: Assessed, Facilitated Comments: Patient able to demonstrate proper sequencing and hand placements, no cues or physical assistance required. Stand to Sit Transfers # of Assistants: 1 Transfer Surface: Chair, Bed Transfer Equipment: Gait belt, Front wheeled walker Level of Assistance: Supervision/set-up Assessment/Delivery: Assessed, Facilitated, Instructed Comments: Cues for proper hand placements, demonstrates good eccentric control. Gait Assessment/Training Distance (m): 91.46 m (91.46 and 60.98 with walker and 18.29 without assistive device.) Surface: Even, Smooth/hard Device: Gait belt, Front-wheeled walker, No device # of Assistants: 1 Level of Assistance: Supervision/Set-up, Contact guard assistance (Patient was supervision with front wheel walker contact guard assistance without assistive device) Quality/Pattern: Decreased toe off, Decreased heel strike Stability: Good with walker Assessment of Gait: Patient demonstrates slight downward gaze, decreased gait speed, and decreased heel strike Cueing Provided: Verbal, Visual Training/Intervention: patient required cues for upright posture and increased heel strike Response: Good tolerance, patient does report some lightheadedness during ambulation, vitals remained stable. Seated Exercises Seated Exercise - Side Addressed: Bilateral Sitting Surface: Chair Seated Exercise: Ankle pumps, Hip abduction/adduction, Marching, Long arc quads Exercise Mode: Active motion against gravity Sets/Repetitions: 1/15 Seated Exercise Comments: Patient given, educated, and completed lower extremity seated home exercise program booklet Handouts provided today: Exercises for the Legs (Sitting) ([id number]) The patient/family educated on safe transfer techniques with functional mobility/activity. Patient's nurse was contacted and patient's status was discussed Inpatient AVS Complete - PT: No Patient was left in bedside chair at end of session with call light in reach, all needs met and questions answered. Outcome Measures AM-PAC Inpatient Short Form: AM-PAC Basic Mobility (V.2) How much help from another person do you currently need???If the patient hasn't done an activity recently, how much help from another person do you think he/she would needif he/she tried? 1. Turning from your back to your side while in a flat bed without using bedrails?: A Little 2. Moving from lying on your back to sitting on the side of a flat bed without using bedrails?: A Little 3. Moving to and from a bed to a chair (including a wheelchair)?: A Little 4. Standing up from a chair using your arms (e.g., wheelchair, or bedside chair)?: None 5. To walk in hospital room?: A Little 6. Climbing 3-5 steps with a railing?: A Lot -[facility] Basic Mobility (V.2) Raw Score: 18 -[facility] Basic Mobility (V.2) Standardized Score: 41.05 Interpretation: Clinicians answer the -[facility] Inpatient Short Form based on observed patient activity and/or clinical judgement (ie. patient can be scored without physically performing each activity) Based on scoring guidelines using the raw score value: Those going to home had an average score at or above 18 Those going to facility had an average score at or below 17 Assessment Discharge Therapy Needs - PT: Ongoing skilled physical therapy Skilled therapy can include physical therapy provided by home health, outpatient clinic, or a post-acute facility. The location of these services is determined by the patient's care team in partnership with patient/family. Level of Care Needed - PT: Assistance with transfers (Comment), Assistance with walking and moving around the home Barriers to Discharge Home: Current functional status, Safety concerns Barriers to Discharge Comments: Patient currently has difficulty setting up her dialysis due to weakness and decreased activity tolerance From a physical therapy perspective, the level of care above has been recommended for Ms. Medina after hospital discharge. This level of care is based on her functional abilities during today's session. This may change throughout the hospital course and will be updated as appropriate. Clinical Impression of today's session: Patient pleasant and agreeable to treatment session, continues to make steady improvements towards increasing her safety and independence with all her functional mobility. Patient was able to complete bed mobility independently, transfers with supervision, and ambulated with front wheel walker up to 91 m with supervision. Patient did report increased lightheadedness while ambulating however vitals remained stable. Patient remained slightly below her prior functional mobility baseline and would benefit from a few more physical therapy skilled intervention sessions to optimize her safety and independence with all her functional mobility. Rehab potential: Ms. Medina has Good potential to achieve established physical therapy goals within the time frame outlined below. Progress: Progressing toward goals Functional Goals and Timeframes: PT Inpatient Goals PT Goal #1: Patient will demonstrate the ability to perform bed mobility with bed flat, without useof bed features to progress towards prior level of function and facilitate safe discharge home. PT Goal #1 Status: Progressing PT Goal #2: Patient will demonstrate the ability to perform all transfers with modified independence with least restrictive assistive device to progress towards prior level of function and facilitatesafe discharge. PT Goal #2 Status: Progressing PT Goal #3: Patient will demonstrate the ability ambulate for 50 m with modified independence with least restrictive assistive device to progress towards prior level of function and facilitate safe discharge. PT Goal #3 Status: Progressing Plan Patient agrees with the plan of care and goals. Treatment Plan: Plan: Continue with current plan PT Frequency: PT Amount: 1 visit per day PT Frequency: 5 times per week PT Inpatient Duration : Until goals are met or hospital discharge Requires Inpatient Follow-Up: Yes PT - Next Inpatient Appointment: 02/28/23 PT Plan Comments: Progress ambulation distance, consider trial without use of front wheeled walker,lower extremity TherEx. Treatment interventions may include: Treatment/Interventions: Therapeutic exercise, Therapeutic functional activity, Therapeutic modalities as needed, Neuromuscular re-education, Gait training TERRITORY SALES MANAGER Visit Trackin Billing: Time Spent with Patient Therapeutic Interventions Gait Training (min): 18 min Therapeutic Activity (min): 16 min Time Tracking Total Timed Units (min): 34 min Total Treatment Time (min): 34 min Bob Tucker, P.T.ALeida * Judy Suarez - 02/27/2023 6:12 AM CDT MEDICINE 3 PROGRESS NOTE SUBJECTIVE Ms. Siobhan Medina was seen at the bedside this morning. There were no acute overnight events. She saidshe is doing fine. She felt a little under the weather after dialysis yesterday, but better than after her first round. She is eating well and having bowel and bladder movements. She denied chest pain, shortness of breath and abdominal pain. She only endorsed some peripheral neuropathy pain that has been bothering her for years. She had no questions or concerns at this time. I have reviewed the current medication list. OBJECTIVE VITAL SIGNS Temperature: [36.3 ??C-36.9 ??C] 36.7 ??C Resp Rate: [14-16] 16 Blood Pressure: (115-145)/(47-60) 115/52 SpO2: [93 %-96 %] 95 % Pulse Rate: [72-84] 74 Intake/Output Last 24 Hours: Intake/Output Summary (Last 24 hours) at 02/27/2023 0612 Last data filed at 02/26/2023 2141 Gross per 24 hour Intake 730 ml Output 850 ml Net -120 ml PHYSICAL EXAM General: elderly female, awake, alert, in no acute distress Cardiovascular: RRR, 2/6 systolic murmur Pulmonary: clear breath sounds bilaterally Abdomen: + bowel sounds, soft, non-tender, non-distended Extremities: Warm and well perfused, 2+ distal tibial pulses, no lower extremity edema; Irregular brown nevus of the right anterior ankle approximately 1.5 cm x 1.5 cm Neurological: AAOx3 DIAGNOSTICS Recent Labs 02/27/23 0440 NA 133 L CL 95 L BICARB 24 MG 1.8 CALCIUM 9.1 BUN 28 H CREATININE 8.49 H GLUCOSE 116 ALBUMIN 3.5 HGB 9.0 L HCT 27.8 L WBC 8.3 PLT 218 Imaging Additional Diagnostic Studies Ms. Medina is a 77 y.o. female with T2DM (insulin-dependent) c/b ESRD on PD 2/2 T2DM ad secondary hyperparathyroidism, HTN, HLD, SHAMIKA, RLS, and breast cancer who is hospitalized on [facility] ([facility]) for generalized weakness. Etiology is multifactorial and includes difficulty with home PD and orthostasis. Today: - Finalize outpatient transport plan to and from dialysis. Daughter can transport to appointment onTuesday. - F/u with neph about any dietary changes now that on HD - Will HOLD BP medications here and have patient follow up with her family doctor to assess continued need for BP control. - Scheduling PCP and Dermatology appointments #Weakness General #Dialysis Peritoneal Status (HCC) #End Stage Renal Disease on Peritoneal Dialysis #Diabetes Mellitus Type 2 With Diabetic Nephropathy (HCC) - Etiology most likely inability to keep up with PD at home, orthostasis, and difficulty with some ADLs such as meal prep - Increased oral calcium acetate to 1334 mg TID with meals for phosphorus binding 02/23 - Strict Is/Os, daily weights - PT/OT consulted, home health approved - CM consulted to help with home health and dialysis transport - Neph consulted: - Transitioned from PD to iHD - TDC placed by IR 02/25, received first HD session same day - Plan is to do //Thu HD at [facility] as an outpatient - Will need to arrange transport to dialysis #Hypokalemia - Replete K prn #Constipation - MiraLAX BID - Senna 2 tabs BID #Chronic back pain - low suspicion for vertebral osteomyelitis #Macrocytic Anemia - Suspect 2/2 chronic renal failure +/- anemia of chronic disease - B12/folate not low - Reticulocyte index 1.12 (hypoproliferation) - No evidence of liver disease - TSH wnl - Continue home multivitamins - Not currently on EPO #Restless Leg Syndrome - Continue pramipexole #Hypertension #Orthostatic hypotension - Holding home losartan, amlodipine - if PCP restarts antihypertensive, please preference losartan given kidney disease - compression stockings - resumed torsemide 7.5 mg bid 02/24 #Hyperlipidemia - Holding pravastatin 40 mg (myalgias with atorvastatin) #Apnea Sleep Obstructive - No on CPAP at home #T2DM - glargine 6 U qhs - mod SSI #Non-severe (moderate) Malnutrition The patient meets the ASPEN Criteria of malnutrition based on: Average estimated Intake: Less than or equal to 75% for 1 or more months Weight Loss: No Change (She has had weight loss, but not clinically significant.) Body Fat: Normal Muscle Mass: Mild Loss This is in the context of Chronic Illness. Malnutrition Present Upon Admission: Yes Agree with Registered Dietitian's assessment and treatment plan: Nutrition Interventions Interventions: Medical food supplement, Vitamin and mineral supplements Current Activity/Mobility: BMAT Level 4 (Able to stand and walk; needs staff assist if fall risk factors identified) Diet: Adult Diet Regular; 1500 mL Fluid (phosphorous restriction, does not need for dialysis diet) Tubes/lines: piv, PD catheter VTE prophylaxis: sqh tid Disposition: likely home Surrogate Decision Maker: Radha Medina (daughter, ) Code status: Full Code Plan discussed with [facility] Medicine 3 ([facility]) Allocation Analyst, Gibran Martini M.D., who was present during sepulveda portions of the evaluation today. Please page the [facility] Medicine 3 ([facility]) service pager at [phone] with any questions. This note was written by Judy Suarez MS4. Associated attestation - Jonathan Contreras M.D. - 02/27/2023 6:26 PM CDT Senior Resident Supervisory Note I saw the patient with the medical student. I was present for or re-performed the History of Present Illness. I saw and evaluated the patient, participating in the sepulveda portions of the service and didmedical decision making. I have reviewed the above documentation and agree or amended. Subjective Ms. Medina continues to do well this afternoon with no concerns. Objective BP (!) 148/54 (BP Location: Right arm;Upper, Patient Position: Lying) Pulse 79 Temp 37 ??C (Oral) Resp 20 Ht 162 cm Wt 84 kg SpO2 91% BMI 32.01 kg/m?? Lying supine in hospital bed, no acute distress, abdomen is nondistended, breathing comfortably on room air, alert and oriented person, place, recent hospital. No obvious bilateral lower extremity edema and able to speak in full sentences. Assessment and Plan Ms. Medina is a very pleasant 77 yo F with T2DM and ESRD who is admitted with likely multifactorial weakness she had been happening difficulty with home peritoneal dialysis and orthostasis. Fortunately, has tolerated HD while here, neph has been consulted, appreciate their recommendations. We will continue to hold blood pressure medications at this time she continues with strict I's and O's and daily weights. Did have mild hypokalemia today however will let her replete this through her diet as she was tolerating oral intake fairly well. She has been set up for Thursday, , Thursday dialysis as outlined and our Nephrology colleagues note. Obtain iron studies and% saturation in the morning have discontinued her low-dose torsemide for now as volume is to be managed with HD. she will receive dialysis tomorrow morning current plan is to discharge on 03/01. Current plans for daughter to bring Ms. Medina to dialysis on Thursday. Based on our discussion this evening it appears patient has transportation arranged for Thursday on the day of discharge. She does have a few questions she would like to ask social work regarding her home meal plan she believes insurance would not provide adequatecoverage. Discussed that we can reach out to psychotherapist social worker on-call tomorrow after morning rounds. Renal function panel has been ordered for tomorrow the patient received hemodialysis. All questions were answered and she is in agreement with the plan. #ESRD now transitioned from PD to iHD on schedule #General weakness, multifactorial related to PD and orthostasis #T2DM with diabetic nephropathy - iHD tomorrow - Small dose of torsemide d/c'd - Renal fx panel on 02/28 prior to iHD - New dry weight to be set prior to d/c - Iron studies tomorrow AM - Patient stable to d/c on 03/01, states has a ride on Thursday - Will leave on schedule, daughter will take to dialysis - Patient would like to discuss hear home meal plan with on-call social work tomorrow - Hold amlodipine and losartan at d/c - Will provide non-Wing home health order for PT/OT in the After Visit Summary - Rest per excellent documentation from Judy Suarez. Staffed with Dr. Torres. Jonathan Contreras MD IM PGY-3 * Bob Tucker, P.T.A. - 02/26/2023 5:14 PM CDT 02/26/23 1714 Reason Therapy Missed Reason Therapy Missed Patient refused Physical therapy attempted to see patient twice and both times patient refused due to increased fatigue attributed to this morning's dialysis. Physical therapy will attempt to see patient tomorrow asable. * Parisa Castañeda M.S., O.T. - 02/26/2023 4:27 PM CDT 02/26/23 1627 Reason Therapy Missed Reason Therapy Missed At test/procedure (Patient at Dialysis in AM and OT unable to return in afternoon. Will continue skilled OT as appropriate.) * Gibran Torres M.D. - 02/26/2023 2:51 PM CDT [facility] Medicine 3 ([facility]) Supervisory Progress Note I saw and evaluated Ms. Concetta Medina on Medicine rounds today and agree with the findings and plan as documented in today's documentation by my resident physician colleague with the following comments: # subacute progressive generalized weakness with prominent orthostatic component # ESRD on peritoneal dialysis (converted to hemodialysis February 25) # macrocytic anemia # SHAMIKA not on CPAP, recent PSG (but results not available) # restless legs syndrome on pramipexole (iron stores adequate) # constipation # diabetes mellitus type 2 # hypertension She is currently undergoing her 2nd session of hemodialysis which has been well tolerated. We are planning towards eventual dismissal to home with ongoing HHC and supports. Referrals have been sent and we are also working to arrange logistics with timing of her dialysis and transportation. Blood pressure has remained under good control after holding her home amlodipine and losartan sinceadmission. She remains on a low dose of torsemide 7.5 mg b.i.d. with only a small amount of urine output. Reviewed with patient Please refer to my resident physician colleague's documentation dated today for additional details about our team's plan of care. I spent 25 minutes face to face and non-face to face caring for the patient today. * Radha Charles RDN - 02/26/2023 11:16 AM CDT Clinical Nutrition: Care Plan Follow Up Clinical Nutrition continues to follow patient for nutrition education/counseling and oral intake encouragement Nutrition Status: Non-severe (moderate) Malnutrition (02/23/2023 10:29 AM) ASSESSMENT Current Nutrition (since admission): The patient states that her eating has improved and feels stronger. The patient wanted to know if there were big differences in diet between peritoneal dialysis and intermittent dialysis. Pt already attempts to eat increased protein, watch potassium and salt. Let her know that this would continue. She may need to watch phosphorus more depending on her labs. She can work with her dietitian at her dialysis center. Also encouraged her to do [employer] which is a resource the SW gave to her. This would ease her meal preparation burden as she is weaker and doesnot like to cook. I also encouraged her to try to make some meals with family and freeze small portions for her. Encouraged patient to not be too restrictive with diet until her appetite is improved and she is stronger. Current nutrition orders: Current Diet Adult Diet Regular; 1500 mL Fluid starting at 02/25 1350 Weight since admission: Height: 162 cm Admission Weight: 87 kg (02/22/2023) Current Weight: 85.3 kg Mather Body Weight (Calculated) : 54.1 kg BMI (Calculated): 32.5 kg/m?? Estimated Needs: Total Calorie Needs: 2075-2327 calories/day Method to Estimate Energy Needs: [place]-St Jeor ( Basal to Basal + 20% ) Weight Used for Equation Calculations: 87 kg Total Protein Needs: 76 - 88 grams/day Method to Estimate Protein Needs (g/kg): 1.2 - 1.4 gm/kg Weight Used to Calculate Protein Needs (Kg): 63 kg Nutrition Diagnosis: Malnutrition (undernutrition) related to poor appetite and weakness with inability to prepare foodsas evidenced by mild/moderate losses of muscle and not meeting at least 75% of her estimated needs for greater than one month PLAN Nutrition Intervention: Medical food supplement, Vitamin and mineral supplements Nutrition parameter to monitor: Meals/Supplement Intake, Weight Status, Nausea/Vomiting/Diarrhea, Pertinent Labs Recommendations: No changes at this time; continue current nutrition orders Clinical Nutrition will continue to follow. For questions about patient's nutritional care please contact pager [phone] on weekdays 07:30-16:00 or [phone] on weekends/holidays. * Shreya Moore L.G.SBee, LJessi.S.W., M.S.W. - 02/26/2023 11:14 AM CDT Images from the original note were not included. SUBJECTIVE Social work received a call from [facility] who accepted patient for a start date of . They will provide therapy services but do not have any nursing services at this time. Home Medical Care - Admitted Since 02/22/2023 Service Provider Request Status Selected Services Address Phone Fax Patient Preferred [facility] Selected Home Health Services [address], [facility] [address] [phone] -- [facility] Pending - Request Sent N/A [address] [facility] [place] [place] [address] -- -- -- [facility] Pending - Request Sent N/A [address] [facility] [address], [facility] -- [facility] Pending - Request Sent N/A [address], [facility] [phone] -- [facility] [place] Pending - Request Sent N/A [address], [facility] [phone] -- [facility] Pending - Request Sent N/A [address] [facility] [phone] -- [facility] [place] Pending - Request Sent N/A [address], [facility] [address] [phone] -- [facility] [place] Declined N/A [address] [facility] [address], [facility] [phone] -- Internal Comment last updated by Shreya Moore L.G.S.W., L.I.C.S.W., M.S.W. 02/25/2023 1437 02/25- no nursing at this time - more availability mid next week [facility] [place] Declined Out of service area N/A [address] [place] [address] [phone] -- [facility] [place] Declined Out of service area N/A [address] [place] [place] [address] -- Social work spoke with patient and provided her with an update. She is agreeable to the plan and reported that she would like resources for transportation to/from dialysis. Patient will do T/TH/Sat dialysis runs with an arrival time of 7:15 and a 3.5 hour run. Social work has called the following transport companies. [facility] [employer] - cannot meet this need [employer] - cannot meet this need [place] - cannot meet this need [facility] - cannot meet this need [place] - cannot meet this need [employer] - cannot meet this need [facility] ([facility]) - VM left with unit coordinator [email or web address] - SW called and they asked that an email be sent with pickling operator/drop off addressesand schedule and he would provide a quote for patient. OBJECTIVE Patient is medically ready at this time. She will discharge to home on Thursday after her dialysis run as her outpatient spot is not available until Saturday 03/03 ASSESSMENT / PLAN ASSESSMENT Patient was sitting in her bedside recliner watching TV at time of arrival. Patient is alert, oriented, and appropriate to meet with at this time. Patient was appreciative of the information being provided to her and states that she will talk with her family and friends about supporting her need for transport until she builds up her strength. PLAN Social work will continue to assist with psychosocial needs as they arise Social work will continue to provide support to patient and family as appropriate Social work will continue to assist with discharge planning as appropriate Swathi Buckley.Margarita.Rodriguez.Taylor., L.I.C.S.W., M.S.W. 02/26/23 UPDATE: Social work received the following message back from [email or web address] The quote for this trip will be a total of 282.50 per a day which includes three and half hours waiting time . [employer] can make it easy for the client a week package will be $840. Social work then went and talked with patient and she reports that she is unwilling to pay privately for transportation and willtalk with family/friends to arrange for transportation to/from dialysis. She was given the contact information for [facility] transportation and encouraged to follow up with them as necessary. She voiced understanding. Family will transport patient to home on Thursday as previously planned. Lilli Buckley, Ngoc, M.S.W. * Paris Sellers, ANU, C.N.P., M.S.N. - 02/26/2023 10:06 AM CDT NEPHROLOGY CONSULT SERVICE - PROGRESS NOTE Hospital Day 4 SUBJECTIVE Ms. Medina was seen and examined during hemodialysis this morning. She is dialyzing in a recliner. She reports she experienced mild lightheadedness following hemodialysis yesterday. This morning she denies dyspnea, chest pain, nausea or vomiting. Outpatient dialysis acceptance and schedule was discussed with myself patient and dialysis liaison.Ms. Medina is accepted to [facility] on a Thursday, , Thursday dialysis schedule at 7:15 a.m.. She is in agreement with plan and notes will need dialysis transportation arranged initially. She denies further questions for nephrology. I have reviewed the current medication list. OBJECTIVE Admission weight: 87 kg Weights for the past 120 hrs (Last 3 readings): Weight 02/26/23 0751 85.3 kg 02/25/23 1039 84.4 kg 02/24/23 1615 85.7 kg I/O 02/24 0000 02/24 2359 02/25 0000 02/25 2359 02/26 0000 02/26 2359 P.O. 1810 Intermittent Medications 250 250 Total Intake(mL/kg) 1810 (21.1) 250 (3) 250 (2.9) Urine (mL/kg/hr) 400 (0.2) 200 (0.1) Stool 0 Dialysis 1091 1321 Total Output 1491 1521 Net +319 -1271 +250 Unmeasured Urine Occurrence 1 x Unmeasured Stool Occurrence 2 x 1 x VITAL SIGNS Vitals 02/25/23 02/26/23 Pre-Dialysis BP (Calculated) 128/47 Post-Dialysis BP (Calculated) 129/52 Lowest BP of Encounter/Session (Calculated) 94/55 Pre-Treatment Weight (kg) 84.4 kg 85.3 kg Post-Treatment Weight (kg) 84.4 kg Requested UF Volume (mL) (mL) 250 750 Total UF Removed (mL) (mL) 250 Intra-Hemodialysis Comments orders changed-200BFR,90mins,0ml UF, 400 dialysate rate Treatment Tolerance No Complications PHYSICAL EXAM General: Awake and alert, dialyzing in recliner, appears in no acute distress Heart: Regular rate and rhythm Lungs: Lung sounds clear to auscultation bilateral anterior lung andrews, nonlabored breathing Extremities: No pitting edema bilateral lower extremities Abdomen: Right midline PD catheter, capped. Nontender to palpation. Vessels: Right tunneled dialysis catheter, accessed, tolerating a BFR 250 mL/min. No drainage at catheter exit site. Mild erythema at catheter exit site. Slight drainage on superior access point of entry, covered by Steri-Strips and transparent dressing. Hemodialysis Catheter Permanent (tunneled, implanted) Right Chest (Active) Placement Date/Time: 02/25/23 08 Line Type (REQUIRED): Permanent (tunneled, implanted) ProceduralPause Completed: Yes Optimal Site Selected: Yes Catheter Time Out Checklist Completed: Yes Hand Hygiene Performed Prior to Insertion: Yes Site P... Number of days: 1 DIAGNOSTICS Results from last 7 days Lab Units 02/26/23 0543 02/25/23 0426 HEMOGLOBIN g/dL 8.3* 8.8* WBC x10(9)/L 8.3 7.7 PLATELETS AUTO x10(9)/L 217 247 Last 2 results Lab Units 02/26/23 0543 02/25/23 0426 SODIUM mmol/L 137 138 POTASSIUM mmol/L 3.7 3.4* BICARBONATE S mmol/L 23 21* BUN mg/dL 40* 51* CREATININE mg/dL 11.37* 14.02* CALCIUM mg/dL 9.0 10.1 PHOSPHORUS INORGANIC mg/dL 3.9 6.0* MAGNESIUM mg/dL 2.1 2.6* ASSESSMENT / PLAN # ESRD related to diabetic kidney disease maintained on peritoneal dialysis since 08/15/2020 and transitioned to hemodialysis 02/25/2023 # Admitted 02/22/2023 progressive with subacute weakness and fatigue # Hyperphosphatemia related to end stage renal disease # Hypokalemia, mild, improved Ms. Medina underwent her initial hemodialysis session yesterday, no fluid was removed. Her initial session was 1.5 hours using BFR of 200 mL/min.She was noted to have a urine output yesterday of 200 mL. Today, she will undergo a second session of hemodialysis. She will dialyze for 2 hours on a 3.0 mEq/L potassium, 2.5 mEq/L calcium, 138 sodium, 35 bicarb dialysate bath with 500 mL fluid removal using BFR 250. Goal to keep SBP>95 and patient asymptomatic. She is dialyzing in the recliner withoutdifficulty. Regarding outpatient hemodialysis, she is accepted to [facility] on a Thursday,, Thursday dialysis schedule at 7:15 am. Social work continues to work on dialysis transportation options. Ms. Medina cannot start at [facility] on a Thursday, therefore will need to dialyze inpatient Thursday02/28/2023. New Recommendations: -- Hemodialysis today (see above) -- Renal function panel with am labs -- Reduce calcium acetate to 667 mg three times daily with meals for phosphorus binding. If at any time he is NPO please hold this medication. Continued Recommendations: -- Document strict intake and output -- Adult regular diet with 800 g phosphorus/day and 1.5 L fluid restriction -- Renally dose-adjust all medications for ESRD status -- Oral calcium acetate 1334 mg 3 times daily with meals for phosphorus binding. If at any time sheis NPO please hold this medication. -- Continue oral losartan 50 mg daily and oral torsemide 7.5 mg BID -- Weekly PD catheter flush (inpatient will be done by dialysis nursing staff) -- Daily PD catheter exit site care: wash with soap and water, followed by application of 0.1% gentamicin cream (to be done by patient and bedside nursing staff) Dismissal Planning: -- Please keep nephrology informed of dismissal plans to ensure outpatient hemodialysis arranged appropriately prior to hospital dismissal. -- Dialyzed in recliner 02/26/2023 without difficulty Ms. Medina's case has been staffed with Dr. Elise, Nephrology environmental consultant. For questions or concerns, please contact the Nephrology C service at [phone]. Associated attestation - Miriam Elise M.D. - 02/26/2023 4:36 PM CDT I was the supervising physician in the delivery of the service. Tolerated dialysis session 2 today.We will continue to assess daily for BUILDING ILLUMINATING ENGINEER needs. Rest as detailed below. * Jonny Aguilar M.D. - 02/26/2023 7:24 AM CDT RST Medicine 3 ([facility]) PROGRESS NOTE SUBJECTIVE INTERVAL EVENTS: Received 1st iHD session yesterday after TDC placement. Had 1.3 L off. Some fatigue after but overall tolerated. Was in HD this morning and doing well when the team checked in on her. Medication list reviewed. OBJECTIVE VITAL SIGNS Temperature: [36.3 ??C-36.8 ??C] 36.6 ??C Heart Rate: [77-85] 81 Resp Rate: [11-21] 16 Blood Pressure: (94-154)/(45-99) 145/45 SpO2: [92 %-98 %] 94 % Weight: [84.4 kg] 84.4 kg BMI (Calculated): [32.2 kg/m??] 32.2 kg/m?? Pulse Rate: [69-92] 79 PHYSICAL EXAM General: Age-appearing woman in no acute distress, lying in bed HEENT: Pupils equal, reactive to light. Eyes tracking. Dentition intact. Chest: Lungs clear to auscultation anteriorly and posteriorly. Heart: Normal rate and rhythm, intermittent PVC. S1, S2 with 2/6 systolic murmur at upper sternal border. Radial, pedal pulses 2+ bilaterally. No pretibial edema. Abdomen: Soft, nondistended, nontender. Bowel sounds present. Extremities: Superficial cat scratches of bilateral ankles, no apparent open, deep, or puncture wounds. No noted lymphadenopathy of neck, axillae, or inguinal creases. Neuro: Alert, cogent. Conversational, following commands. Strength in lower extremities intact 0+. Psych: Normal mood and range of emotions. DIAGNOSTICS (diagnostics reviewed) Labs: Recent Results (from the past 24 hour(s)) Glucose, POCT Collection Time: 02/25/23 10:54 AM Result Value Glucose, POCT, B 168 (H) Site Capillary Glucose, POCT Collection Time: 02/25/23 11:44 AM Result Value Glucose, POCT, B 154 (H) Site Capillary Last Intake NPO Glucose, POCT Collection Time: 02/25/23 5:50 PM Result Value Glucose, POCT, B 181 (H) Site Capillary Last Intake 3-4 hours Glucose, POCT Collection Time: 02/25/23 8:22 PM Result Value Glucose, POCT, B 209 (H) Site Capillary Last Intake 3-4 hours CBC with Differential, Blood Collection Time: 02/26/23 5:43 AM Result Value Hemoglobin 8.3 (L) Hematocrit 25.9 (L) Erythrocytes 2.39 (L) MCV 108.4 (H) RBC Distrib Width 14.8 Platelet Count 217 Leukocytes 8.3 Neutrophils 4.83 Lymphocytes 2.68 Monocytes 0.58 Eosinophils 0.20 Basophils 0.05 Renal Function Panel Collection Time: 02/26/23 5:43 AM Result Value Potassium, S 3.7 Sodium, S 137 Chloride, S 97 (L) Bicarbonate, S 23 Anion Gap 17 (H) BUN (Blood Urea Nitrogen), S 40 (H) Creatinine 11.37 (H) Estimated GFR (eGFR) <15 (L) Calcium, Total, S 9.0 Glucose, S 114 Albumin, S 3.3 (L) Phosphorus (Inorganic), S 3.9 Magnesium Collection Time: 02/26/23 5:43 AM Result Value Magnesium, S 2.1 Reticulocytes Collection Time: 02/26/23 5:43 AM Result Value Reticulocytes, B 2.73 (H) Absolute Reticulocyte 65.2 Micro: Results for orders placed or performed during the hospital encounter of 02/22/23 (from the past 72 hour(s)) Hepatitis B Surface Antigen Specimen: Blood, Venous Result Value HBs Antigen, S Negative HBs Antibody, Serum Specimen: Blood, Venous Result Value HBs Antibody, S Indeterminate HBs Antibody, Quantitative, S 6.0 QuantiFERON-Tb Gold Plus, Blood Specimen: Blood, Venous Result Value QuantiFERON-TB Gold Plus Result Negative TB1 Ag minus Nil Result 0.03 TB2 Ag minus Nil Result 0.07 Mitogen minus Nil Result 5.51 Nil Result 0.01 Quant Gold: pending Peritoneal Cx (bacterial, fungal): gram stain, smear, and cultures pending BCx: ngtd Imaging: DX Chest Portable 1 View Result Date: 02/22/2023 Impression: No active intrathoracic disease. ASSESSMENT / PLAN Ms. Medina is a 77 y.o. female with T2DM (insulin-dependent) c/b ESRD on PD 2/2 T2DM ad secondary hyperparathyroidism, HTN, HLD, SHAMIKA, RLS, and breast cancer who is hospitalized on [place] [address] ([facility]) for generalized weakness. Etiology is multifactorial and includes difficulty with home PD and orthostasis. Today: [x] Second HD session today [x] Accepted for outpatient dialysis // [x] Home health approved [] Finalize outpatient transport plan to and from dialysis [] F/u with neph about any dietary changes now that on HD [] ctm BPs, if restarting antihypertensive will preference losartan given kidney disease #Weakness General #Dialysis Peritoneal Status (HCC) #End Stage Renal Disease on Peritoneal Dialysis #Diabetes Mellitus Type 2 With Diabetic Nephropathy (HCC) - Etiology most likely inability to keep up with PD at home, orthostasis, and difficulty with some ADLs such as meal prep - Increased oral calcium acetate to 1334 mg TID with meals for phosphorus binding 02/23 - Strict Is/Os, daily weights - PT/OT consulted, home health approved - CM consulted to help with home health and dialysis transport - Neph consulted: - Transitioned from PD to iHD - TDC placed by IR 02/25, received first HD session same day - Plan is to do //Thu HD at [facility] as an outpatient - Will need to arrange transport to dialysis #Hypokalemia - Replete K prn #Constipation - MiraLAX BID - Senna 2 tabs BID #Chronic back pain - low suspicion for vertebral osteomyelitis #Macrocytic Anemia - Suspect 2/2 chronic renal failure +/- anemia of chronic disease - B12/folate not low - Reticulocyte index 1.12 (hypoproliferation) - No evidence of liver disease - TSH wnl - Continue home multivitamins - Not currently on EPO #Restless Leg Syndrome - Continue pramipexole #Hypertension #Orthostatic hypotension - Holding home losartan, amlodipine - ctm BPs, if restarting antihypertensive will preference losartan given kidney disease - compression stockings - resumed torsemide 7.5 mg bid 02/24 #Hyperlipidemia - Holding pravastatin 40 mg (myalgias with atorvastatin) #Apnea Sleep Obstructive - No on CPAP at home #T2DM - glargine 6 U qhs - mod SSI Current Activity/Mobility: BMAT Level 4 (Able to stand and walk; needs staff assist if fall risk factors identified) Diet: Adult Diet Regular; 1500 mL Fluid (phosphorous restriction, does not need for dialysis diet) Tubes/lines: piv, PD catheter VTE prophylaxis: sqh tid Disposition: likely home Surrogate Decision Maker: Radha Medina (daughter, ) Code status: Full Code Non-severe (moderate) Malnutrition The patient meets the ASPEN Criteria of malnutrition based on: Average estimated Intake: Less than or equal to 75% for 1 or more months Weight Loss: No Change (She has had weight loss, but not clinically significant.) Body Fat: Normal Muscle Mass: Mild Loss This is in the context of Chronic Illness. Malnutrition Present Upon Admission: Yes Agree with Registered Dietitian's assessment and treatment plan: Nutrition Interventions Interventions: Medical food supplement, Vitamin and mineral supplements Plan discussed with [facility] Medicine 3 ([facility]) Allocation Analyst, Gibran Martini M.D., who was present during espulveda portions of the evaluation today. Please page the [facility] Medicine 3 ([facility]) service pager at [phone] with any questions. * Gibran Torres M.D. - 02/25/2023 4:43 PM CDT [facility] Medicine 3 ([facility]) Supervisory Progress Note I saw and evaluated Ms. Concetta Medina on Medicine rounds today and agree with the findings and plan as documented in today's documentation by my resident physician colleague with the following comments: # subacute progressive generalized weakness with prominent orthostatic component # ESRD on peritoneal dialysis (converted to hemodialysis February 25) # macrocytic anemia # SHAMIKA not on CPAP, recent PSG (but results not available) # restless legs syndrome on pramipexole (iron stores adequate) # constipation # diabetes mellitus type 2 # hypertension She is feeling a bit better today and was able to walk in the new with physical therapy yesterday. She had a tunneled line placed this morning and had her 1st session of hemodialysis which was well tolerated. She has a couple of small papules on the left wrist which have been present for the past month. These are likely hot die picker's papules and we will observe for now. We are planning towards eventual dismissal to home with ongoing C and supports. Referrals have been sent and we are also working to arrange logistics with timing of her dialysis and transportation. Blood pressure has remained under good control after holding her home amlodipine and losartan sinceadmission. She remains on a low dose of torsemide 7.5 mg b.i.d. with only a small amount of urine output. Reviewed in detail with patient Please refer to my resident physician colleague's documentation dated today for additional details about our team's plan of care. I spent 35 minutes face to face and non-face to face caring for the patient today. * Bob Tucker, P.T.A. - 02/25/2023 4:22 PM CDT 02/25/23 3672 Reason Therapy Missed Reason Therapy Missed Patient refused Patient pleasantly declined therapy due to increased fatigue attributed to having dialysis this morning. Physical therapy will attempt to see patient tomorrow as able. * Asmita Vasquez, D., R.Ph. - 02/25/2023 4:14 PM CDT Pharmacist Progress Note Reason for admission: generalized weakness PMH: ESRD (daily peritoneal dialysis), DM2 (on insulin), secondary renal hyperparathyroidism, history of breast cancer, HTN, HLD, SHAMIKA, RLS OBJECTIVE Home medications (will confirm with patient today when able) Held: amlodipine, fish oil, topical gentamicin, losartan, Changed: insulin glargine (reduced dose) New: SSI VTE Prophylaxis: heparin 5,000 units q8 hours Renal function: Estimated Creatinine Clearance: 3.4 mL/min (A) (by C-G formula based on SCr of 14.02 mg/dL (H)). ASSESSMENT / PLAN Weakness: Unclear etiology. Progressive weakness over past few months. TTE unremarkable. -Bartonella serologies and PCR negative. Checked as has multiple cat scratches. -Concern for orthostatic hypotension. Restarted torsemide as has residual kidney function with UOP.Holding amlodipine and losartan. -Vitamin B12 and folate normal -Medications evaluated for causes of weakness outside of orthostatic hypotension, none identified at this time Peritoneal dialysis/ESRD: Neph consulted. Too weak to complete peritoneal dialysis at home. Continued home phosphate binder and renal MV. Medications evaluated for renal adjustment. -Gathering cultures from PD to assess for infection. Cultures ngtd. -Transitioned to iHD today with first dialysis run. Plan for another run tomorrow. -PD port still appears to be in place, therefore will need to continue gentamicin cream. T2DM: A1c 6.4 % (12/2022). Continued insulin glargine (reduced dose) + SSI. Continued pravastatin (myalgias with atorvastatin). RLS: continued pramipexole. Previously trialed gabapentin, however experienced excessive fatigue per chart review. Asmita Vasquez, PharmRozina., R.Ph. * Shreya Moore L.G.S.W., L.I.C.S.W., M.S.W. - 02/25/2023 12:42 PM CDT SUBJECTIVE Social work met with patient today in her [place] [address] hospital room. Patient worked with PT and was able to walk a significant distance and thus would like to discharge to home with [facility] services for therapy and nursing visits. She is agreeable to the following referrals being sent and has no preference on [facility] agency. Patient was also informed that there is a dialysis location arranged ([address], [place] [address]. Her schedule will be on Thursday, Thursday and Fridays. She will need to arrive at 5:30 am for a 5:45 am on time. She will be a 3.5 hour run). Social work informed patientof this today and she reported that that run time would be to early in the day for her and asked ifanything was available later in the day. Social work let her know that it would be up to the dialysis liaison if some other time/location would be available and she voiced understanding. At this timeAnn Rider is working with patient to develop a dialysis plan. Patient reports that she has no family or friends that could provide transport that early in the day and asked if there were any other options available. Social work let her know that this would be investigated and SW would follow up. Social work called [facility] transport and they are unable to meet this need as there is already adriver taking a patient to dialysis at this time and there are no other drivers available at this time of day. Social work also reached out to the Admin assistants to see if patient has any transportbenefits under her insurance. Finally, social work spoke with patient about [employer]. This is a meal delivery service that provides microwave meals that are created with medical needs in mind for patients. Patient is interested in getting more information and this has been provided. Home Medical Care - Admitted Since 02/22/2023 Service Provider Request Status Selected Services Address Phone Fax Patient Preferred [facility] Pending - Request Sent N/A [address] [place] [address] -- -- -- [facility] Pending - Request Sent N/A [address], [facility] [address] -- [facility] Pending - Request Sent N/A [address], [facility] -- [facility] Pending - Request Sent N/A [address], [facility] [phone] -- [facility] Pending - Request Sent N/A [address], [facility] [address] -- [facility] [place] Pending - Request Sent N/A [address] [facility] [address] [address] -- [facility] Pending - Request Sent N/A [address] [facility] [phone] -- [facility] [place] Pending - Request Sent N/A [address], [facility] [address] [phone] -- [facility] [place] Declined Out of service area N/A [address] [place] [address] [phone] -- [facility] [place] Declined Out of service area N/A [address], [facility] [address] -- OBJECTIVE Patient is medically ready to discharge once services are arranged and plan is finalized. ASSESSMENT / PLAN ASSESSMENT Patient was laying in bed watching TV after returning from a run of dialysis. She is alert, oriented and appropriate to meet with. Patient is able to advocate for herself and her wishes at this time.She has an understanding of her care need and is asking appropriate questions. PLAN Social work will continue to assist with psychosocial needs as they arise Social work will continue to provide support to patient and family as appropriate Social work will continue to assist with discharge planning as appropriate Lilli Buckley, Amanda., M.S.W. 02/25/23 * Paris Sellers APRN, C.N.P., M.S.N. - 02/25/2023 8:46 AM CDT NEPHROLOGY CONSULT SERVICE - PROGRESS NOTE Hospital Day 3 SUBJECTIVE Ms. Medina was seen and examined during hemodialysis this morning. She is dialyzing in bed. She reports tunneled dialysis catheter placement when dwell. She denies dyspnea, chest pain, nausea or vomiting. She tells me last night she slept well, without any peritoneal dialysis machine issues. I discussed moving forward she will be on a Thursday, Thursday, Thursday dialysis schedule at [facility]. She has questions regarding transportation to/from hemodialysis. I discussed a personal care aid should be meeting with her prior to hospital dismissal to ensure needs are met prior to dismissal. I also discussed since this is her first hemodialysis session we will run things slightly slower and more gently. We discussed if she feels anything different or out of the norm to let nursing know. She notes understanding and denies questions for nephrology. I have reviewed the current medication list. OBJECTIVE Admission weight: 87 kg Weights for the past 120 hrs (Last 3 readings): Weight 02/24/23 1615 85.7 kg 02/22/23 2252 87 kg I/O 02/23 0000 02/23 2359 02/24 0000 02/24 2359 02/25 0000 02/25 2359 P.O. 860 1810 Other 0 Total Intake(mL/kg) 860 (9.9) 1810 (21.1) Urine (mL/kg/hr) 400 (0.2) 400 (0.2) Stool 0 0 Dialysis 73 1091 1071 Total Output 473 1491 1071 Net +387 [phone] -1071 Unmeasured Stool Occurrence 1 x 2 x VITAL SIGNS Vitals No data to display. PHYSICAL EXAM General: Awake and alert, dialyzing in bed, appears in no acute distress Heart: Regular rate and rhythm Lungs: Lung sounds clear to auscultation bilateral anterior lung andrews, nonlabored breathing Extremities: No pitting edema bilateral lower extremities Abdomen: Right midline PD catheter, capped. Nontender to palpation. Vessels: Right tunneled dialysis catheter, accessed, tolerating a BFR 250 mL/min. No drainage or erythema at catheter exit site. Slight drainage on superior access point of entry, covered by Steri-Strips and transparent dressing. Hemodialysis Catheter Permanent (tunneled, implanted) Right Chest (Active) Placement Date/Time: 10/18/23 0830 Line Type (REQUIRED): Permanent (tunneled, implanted) ProceduralPause Completed: Yes Optimal Site Selected: Yes Catheter Time Out Checklist Completed: Yes Hand Hygiene Performed Prior to Insertion: Yes Site P... Number of days: 0 DIAGNOSTICS Results from last 7 days Lab Units 02/25/2342502/24/23 0337 HEMOGLOBIN g/dL 8.8* 9.1* WBC x10(9)/L 7.7 7.9 PLATELETS AUTO x10(9)/L 247 251 Last 2 results Lab Units 02/25/2342502/24/23 0337 02/23/23 0315 02/23/23 0025 02/23/23 0024 02/22/23 1720 SODIUM P mmol/L -- -- -- 136 -- 135 SODIUM mmol/L 138 136 < > -- -- -- POTASSIUM P mmol/L -- -- -- 3.2* -- 3.3* POTASSIUM mmol/L 3.4* 3.5* < > -- -- -- BICARBONATE PLASMA mmol/L -- -- -- 18* -- 20* BICARBONATE S mmol/L 21* 21* < > -- -- -- BUN P mg/dL -- -- -- 59* -- 52* BUN mg/dL 51* 54* < > -- -- -- CREATININE mg/dL 14.02* 14.66* < > 15.25* -- 14.61* CALCIUM P mg/dL -- -- -- 10.1 -- 10.1 CALCIUM mg/dL 10.1 9.7 < > -- -- -- PHOSPHORUS INORGANIC mg/dL 6.0* 6.0* < > -- < > -- MAGNESIUM RL mg/dL -- -- -- -- -- 2.6* MAGNESIUM mg/dL 2.6* 2.6* -- -- -- -- < > = values in this interval not displayed. ASSESSMENT / PLAN # ESRD related to diabetic kidney disease maintained on peritoneal dialysis since 08/15/2020 # Admitted 02/22/2023 progressive with subacute weakness and fatigue # Hyperphosphatemia related to end stage renal disease # Hypokalemia, acute, mild Ms. Medina completed peritoneal dialysis overnight with a net fluid removal 1.1 L. She had a total urine output of 400 mL charted for yesterday. Ms. Medina underwent tunneled hemodialysis catheter placement this morning in Interventional Radiology. Following placement of tunneled cathter she completed a session of hemodialysis. She dialyzed for1.5 hrs hours on a 3.0 mEq/L potassium, 2.5 mEq/L calcium, 138 sodium, 35 bicarb dialysate bath with no net fluid removal, goal to keep SBP>95 and asymptomatic. Her predialysis weight today was 84.4 kg. Since this is her first hemodialysis session a BFR of 250 mL/min will be used with gentle fluid removal. No medications are being administered with hemodialysis today. She is tolerating dialysis with a blood pressure 124/47 (70) during my visit. Of note, not using high potassium dialysate bath due to mild hypercalcemia with level 10.1, correcting to 10.5 with hypoalbuminemia. She has been accepted to [facility] on a Thursday, Thursday, Thursday dialysis session. If she is to need halfway facility/rehab placement at hospital dismissal; please assess facilities in area of [place]. If placement occurs too far from outpatient dialysis unit, a new dialysis location may need to be obtained. Please keep nephrology up to date on dismissal plans. New Recommendations: -- Hemodialysis today (see above) -- 20 mEq oral potassium repletion -- Renal function panel with am labs -- Weekly PD catheter flush (inpatient will be done by dialysis nursing staff) -- Daily PD catheter exit site care: wash with soap and water, followed by application of 0.1% gentamicin cream (to be done by patient and bedside nursing staff) -- Recommend care management consult re:dialysis transportation and needs at dismissal -- Hemodialysis again tomorrow () Continued Recommendations: -- Document strict intake and output -- Adult regular diet with 800 g phosphorus/day and 1.5 L fluid restriction -- Renally dose-adjust all medications for ESRD status -- Oral calcium acetate 1334 mg 3 times daily with meals for phosphorus binding. If at any time sheis NPO please hold this medication. -- Continue oral losartan 50 mg daily and oral torsemide 7.5 mg BID -- Weekly PD catheter flush (inpatient will be done by dialysis nursing staff) -- Daily PD catheter exit site care: wash with soap and water, followed by application of 0.1% gentamicin cream (to be done by patient and bedside nursing staff) Dismissal Planning: -- Please keep nephrology informed of dismissal plans to ensure outpatient hemodialysis arranged appropriately prior to hospital dismissal. Ms. Medina's case has been staffed with Dr. Elise, Nephrology environmental consultant. For questions or concerns, please contact the Nephrology C service at [phone]. Associated attestation - Miriam Elise M.D. - 02/25/2023 6:11 PM CDT I was the supervising physician in the delivery of the service. I evaluated the patient while on dialysis, tolerating the treatment well. Modified dialysis prescription to Qb 200/ Qd400, with minimalUF, patient still had some cramps during dialysis. Please check magnesium level. Rest as detailed below. * Jonny Aguilar M.D. - 02/25/2023 7:03 AM CDT T Medicine 3 ([facility]) PROGRESS NOTE SUBJECTIVE INTERVAL EVENTS: Received PD overnight. Is going to IR this morning for TDC placement and will then transition to iHD with first session today. Medication list reviewed. OBJECTIVE VITAL SIGNS Temperature: [36.6 ??C-36.7 ??C] 36.7 ??C Resp Rate: [15-18] 16 Blood Pressure: (101-146)/(45-56) 123/56 SpO2: [80 %-96 %] 95 % Weight: [85.7 kg] 85.7 kg BMI (Calculated): [32.7 kg/m??] 32.7 kg/m?? Pulse Rate: [67-108] 76 Orthostatics 02/23: Symptoms: Lightheadedness x20-30 seconds Supine: 122/43 (62) Sittin/48 (63) Standin/73 (81) PHYSICAL EXAM General: Age-appearing woman in no acute distress, lying in bed HEENT: Pupils equal, reactive to light. Eyes tracking. Dentition intact. Chest: Lungs clear to auscultation anteriorly and posteriorly. Heart: Normal rate and rhythm, intermittent PVC. S1, S2 with 2/6 systolic murmur at upper sternal border. Radial, pedal pulses 2+ bilaterally. No pretibial edema. Abdomen: Soft, nondistended, nontender. Bowel sounds present. Extremities: Superficial cat scratches of bilateral ankles, no apparent open, deep, or puncture wounds. No noted lymphadenopathy of neck, axillae, or inguinal creases. Neuro: Alert, cogent. Conversational, following commands. Strength in lower extremities intact 0+. Psych: Normal mood and range of emotions. DIAGNOSTICS (diagnostics reviewed) Labs: Recent Results (from the past 24 hour(s)) Glucose, POCT Collection Time: 02/24/23 8:41 AM Result Value Glucose, POCT, B 123 Site Capillary Last Intake > 4 hours Glucose, POCT Collection Time: 02/24/23 12:59 PM Result Value Glucose, POCT, B 172 (H) Site Capillary Last Intake 2-3 hours Glucose, POCT Collection Time: 02/24/23 5:15 PM Result Value Glucose, POCT, B 144 (H) Site Capillary Last Intake 2-3 hours Glucose, POCT Collection Time: 02/24/23 9:29 PM Result Value Glucose, POCT, B 183 (H) CBC with Differential, Blood Collection Time: 02/25/23 4:26 AM Result Value Hemoglobin 8.8 (L) Hematocrit 27.1 (L) Erythrocytes 2.55 (L) MCV 106.3 (H) RBC Distrib Width 14.6 Platelet Count 247 Leukocytes 7.7 Neutrophils 4.32 Lymphocytes 2.46 Monocytes 0.65 Eosinophils 0.22 Basophils 0.06 Renal Function Panel Collection Time: 02/25/23 4:26 AM Result Value Potassium, S 3.4 (L) Sodium, S 138 Chloride, S 92 (L) Bicarbonate, S 21 (L) Anion Gap 25 (H) BUN (Blood Urea Nitrogen), S 51 (H) Creatinine 14.02 (H) Estimated GFR (eGFR) <15 (L) Calcium, Total, S 10.1 Glucose, S 181 (H) Albumin, S 3.5 Phosphorus (Inorganic), S 6.0 (H) Magnesium Collection Time: 02/25/23 4:26 AM Result Value Magnesium, S 2.6 (H) Micro: Results for orders placed or performed during the hospital encounter of 02/22/23 (from the past 72 hour(s)) Bartonella Ab Panel, IgG and IgM Specimen: Blood, Venous Result Value Ayo Henselae IgG <1:128 Ayo Henselae IgM <1:20 Ayo Fonseca IgG <1:128 Ayo Fonseca IgM <1:20 Bartonella PCR, Blood Specimen: Blood, Peripheral Draw Result Value Specimen Source BLOOD Bartonella PCR Negative Hepatitis B Surface Antigen Specimen: Blood, Venous Result Value HBs Antigen, S Negative HBs Antibody, Serum Specimen: Blood, Venous Result Value HBs Antibody, S Indeterminate HBs Antibody, Quantitative, S 6.0 QuantiFERON-Tb Gold Plus, Blood Specimen: Blood, Venous Result Value QuantiFERON-TB Gold Plus Result Negative TB1 Ag minus Nil Result 0.03 TB2 Ag minus Nil Result 0.07 Mitogen minus Nil Result 5.51 Nil Result 0.01 Quant Gold: pending Peritoneal Cx (bacterial, fungal): gram stain, smear, and cultures pending BCx: ngtd Imaging: DX Chest Portable 1 View Result Date: 02/22/2023 Impression: No active intrathoracic disease. ASSESSMENT / PLAN Ms. Medina is a 77 y.o. female with T2DM (insulin-dependent) c/b ESRD on PD 2/2 T2DM ad secondary hyperparathyroidism, HTN, HLD, SHAMIKA, RLS, and breast cancer who is hospitalized on [place] [address] ([facility]) for generalized weakness. Etiology is multifactorial and includes difficulty with home PD and orthostasis. Today: [x] IR for TDC placement [x] Resume diet (phosphate-restricted, 1.5 L fluid restriction) and VTE prophylaxis after procedure #Weakness General #Dialysis Peritoneal Status (HCC) #End Stage Renal Disease on Peritoneal Dialysis #Diabetes Mellitus Type 2 With Diabetic Nephropathy (HCC) The differential for the patient's weakness is incredibly broad. There are no glaring lab abnormalities outside the fact she is on peritoneal dialysis. Elevated anion gap (29), though compensated with normal pH likely secondary to renal dysfunction. Important to rule out indolent infection such as SBP, spinal infection, Bartonella. - Orthostatic vitals - Peritoneal fluid culture (bacterial and fungal) - Bartonella PCR (given onset of symptoms around the time of new cats) - Check B12/folate/TSH/BHB/peripheral smear - Insulin glargine 6 u qPM - Moderate sliding scale insulin - Increased oral calcium acetate to 1334 mg TID with meals for phosphorus binding 02/23 - TB QuantiFERON gold (Nephrology ordered) - Strict Is/Os, daily weights - PT/OT consulted, recommend home health - CM consulted to help with home health and dialysis transport - Neph consulted: - Transitioned from PD to iHD - TDC placed by IR 02/25, received first HD session same day - Plan is to do MWF HD at [facility] as an outpatient - Will need to arrange transport to dialysis #Hypokalemia - Replete K prn #Constipation - MiraLAX BID - Senna 2 tabs BID #Chronic back pain - low suspicion for vertebral osteomyelitis #Anemia Of Chronic Renal Failure - Continue home: multivitamins #Restless Leg Syndrome - Continue pramipexole #Hypertension #Orthostatic hypotension - Holding armin losartan, amlodipine, torsemide - compression stockings - resumed torsemide 7.5 mg bid 02/24 #Hyperlipidemia - Holding pravastatin 40 mg (myalgias with atorvastatin) #Apnea Sleep Obstructive - No on CPAP at home #T2DM - glargine 6 U qhs - mod SSI Current Activity/Mobility: BMAT Level 4 (Able to stand and walk; needs staff assist if fall risk factors identified) Diet: No diet orders on file (phosphorous restriction, does not need for dialysis diet) Tubes/lines: piv, PD catheter VTE prophylaxis: sqh tid Disposition: likely home Surrogate Decision Maker: Radha Medina (daughter, ) Code status: Full Code Non-severe (moderate) Malnutrition The patient meets the ASPEN Criteria of malnutrition based on: Average estimated Intake: Less than or equal to 75% for 1 or more months Weight Loss: No Change (She has had weight loss, but not clinically significant.) Body Fat: Normal Muscle Mass: Mild Loss This is in the context of Chronic Illness. Malnutrition Present Upon Admission: Yes Agree with Registered Dietitian's assessment and treatment plan: Nutrition Interventions Interventions: Medical food supplement, Vitamin and mineral supplements Plan discussed with [facility] Medicine 3 ([facility]) Allocation Analyst, Gibran Martini M.D., who was present during sepulveda portions of the evaluation today. Please page the [facility] Medicine 3 ([facility]) service pager at [phone] with any questions. * Gibran Torres M.D. - 02/24/2023 5:44 PM CDT [facility] Medicine 3 ([facility]) Supervisory Progress Note I saw and evaluated Ms. Concetta Medina on Medicine rounds today and agree with the findings and plan as documented in today's documentation by my resident physician colleague with the following comments: # subacute progressive generalized weakness with prominent orthostatic component # ESRD on peritoneal dialysis # macrocytic anemia # SHAMIKA not on CPAP, recent PSG (but results not available) # restless legs syndrome on pramipexole (iron stores adequate) # constipation # diabetes mellitus type 2 # hypertension She did have a mild orthostatic change in blood pressure and definite orthostatic symptoms. We are adjusting her medications by holding amlodipine and losartan at this time. She is now agreeable to transitioning to intermittent hemodialysis for more effective control of her uremia, and we will plan to place a tunneled dialysis catheter tomorrow. She has a couple of small papules on the left wrist which have been present for the past month. These may be hot die picker's papules but we have obtained photos and requested review by Dermatology. Reviewed in detail with patient and her daughter who joined us by phone Please refer to my resident physician colleague's documentation dated today for additional details about our team's plan of care. I spent 35 minutes face to face and non-face to face caring for the patient today. * Edgardo Cochran - 02/24/2023 2:04 PM CDT Images from the original note were not included. [facility] Medicine 3 ([facility]) PROGRESS NOTE SUBJECTIVE Overnight, Siobhan expressed concerns around neuropathic pain in bilateral lower extremities. She wasadministered topical lidocaine which provided her with significant symptom relief. This morning, Siobhan was observed resting comfortably in bed. Two 1 cm nodules were noted on her left wrist. She states that these nodules appeared approximately 1 month ago in the context of adopting2 new kittens and minor trauma sustained while gardening. These nodules are generally not painful, but she does report regularly excoriating the area. Inpatient derm was curbsided. They believed thatthese lesions could be secondary to bartonella henselae inoculation in the absence of classic lymphadenopathy and negative serology. Currently awaiting their recommendations regarding a formal consult, biopsy, and bacterial/fungal/viral/mycobacterial cultures. Infectious disease was also curbsided,and they noted sporotrichoid distribution of lesions. Potential etiologies for this includes: bartonella henselae, atypical mycobacteria, tuberculosis, nocardia, sporotrichosis, phaeohypophomycosis, leishmaniasis, anthrax, and tularemia. They advised that bartonella PCR could be ordered if high clinical suspicion. With daughter Radha on the phone, we also discussed potential causes of Siobhan's general malaise which includes: toxin accumulation secondary to end stage renal disease, orthostatic hypotension, and malnutrition. We continued the discussion around transitioning from peritoneal dialysis to hemodialysis given her current level of debility and worsening renal function. Although she was initially apprehensive to this change, she also expressed her desire to regain strength and return to her previous level of functioning through whatever means possible. She was ultimately agreeable to hemodialysis. I have reviewed the current medication list. OBJECTIVE VITAL SIGNS Temperature: [36.4 ??C-36.8 ??C] 36.6 ??C Resp Rate: [15-18] 15 Blood Pressure: (101-133)/(32-50) 124/45 SpO2: [87 %-96 %] 91 % Pulse Rate: [62-88] 82 PHYSICAL EXAM Constitutional Appearance: Normal appearance. She is well-developed. HENT Mouth/Throat: Mouth: Mucous membranes are moist. Cardiovascular Rate and Rhythm: Normal rate and regular rhythm. Pulses: Normal pulses. Heart sounds: Normal heart sounds. Pulmonary Effort: Pulmonary effort is normal. Breath sounds: Normal breath sounds and air entry. Abdominal General: Abdomen is flat. Bowel sounds are normal. Palpations: Abdomen is soft. Lymphadenopathy Cervical: No cervical adenopathy. Skin Findings: Lesion present. Comments: Two 1 centimeter nodules on left wrist (see nursing images) Neurological Mental Status: She is alert. Psychiatric Attention and Perception: Attention normal. Mood and Affect: Mood and affect normal. DIAGNOSTICS I have personally reviewed the laboratory data and imaging since admission, and in/outs for past 72hours. ASSESSMENT / PLAN Ms. Concetta Medina is a 77 y.o. female with medical comorbidities including: ESRD (daily peritoneal dialysis), DM2 (on insulin), secondary renal hyperparathyroidism, personal history of breast cancer,HTN, HLD, SHAMIKA, and restless leg syndrome who presented with general weakness. Summary of Plan: -Re-start home torsemide 7.5 mg BID (will continue holding amlodipine and losartan in the setting of suspected orthostatic hypotension and lack of clarity around home medication adherence) -IR consulted for tunneled high flow catheter placement tomorrow (NPO, hold heparin) -First session of hemodialysis tomorrow -Ongoing discussion with patient/daughter around home going needs -Nutrition consulted for evaluation of malnutrition and support regarding renal diet -Derm/ID curbsided regarding lesions on left arm, may consider formal consults/biopsy/cultures #Weakness General #Dialysis Peritoneal Status (HCC) #End Stage Renal Disease on Peritoneal Dialysis #Diabetes Mellitus Type 2 With Diabetic Nephropathy (HCC) The differential for the patient's weakness is incredibly broad. There are no glaring lab abnormalities outside the fact she is on peritoneal dialysis. Elevated anion gap (29), though compensated with normal pH likely secondary to renal dysfunction. Important to rule out indolent infection such as SBP, spinal infection, Bartonella. - Orthostatic vitals - Peritoneal fluid culture (bacterial and fungal) - Bartonella PCR (given onset of symptoms around the time of new cats) - Check B12/folate/TSH/BHB/peripheral smear - Insulin glargine 6 u qPM - Moderate sliding scale insulin - Restart torsemide 7.5 mg BID - Planned tunneled high flow catheter placement by IR (02/24) - First session of hemodialysis (02/24) #Constipation Constipation could be contributing to her clinical status (such as obstipation) - Escalate bowel regimen until concern for constipation cleared - Consider abdominal imaging (abdominal xray or CT to assess for bowel obstruction, constipation) - MiraLAX BID - Senna 2 tabs BID - Nutrition consulted regarding malnutrition #Anemia Of Chronic Renal Failure - Continue home: multivitamins #Restless Leg Syndrome - Continue pramipexole #Hypertension #Hyperlipidemia - Continue losartan, amlodipine, pravastatin 40 mg (myalgias with atorvastatin) #Apnea Sleep Obstructive - No on CPAP at home Baseline Mobility: BMAT Level 4 (Able to stand and walk) Diet: renal failure/dialysis diet Tubes/lines: PIV VTE prophylaxis: heparin Code status: Full Code Surrogate Decision Maker: Radha Medina (daughter, ) Disposition: Home Non-severe (moderate) Malnutrition The patient meets the ASPEN Criteria of malnutrition based on: Average estimated Intake: Less than or equal to 75% for 1 or more months Weight Loss: No Change (She has had weight loss, but not clinically significant.) Body Fat: Normal Muscle Mass: Mild Loss This is in the context of Chronic Illness. Malnutrition Present Upon Admission: Yes Agree with Registered Dietitian's assessment and treatment plan: Nutrition Interventions Interventions: Medical food supplement, Vitamin and mineral supplements Care discussed with the [facility] Medicine 3 ([facility]) team, Gibran Martini M.D., environmental consultant. Please contact the [facility] Medicine 3 ([facility]) team (service pager [phone]) with any questions or concerns. Edgardo Cochran, MMS3 ([employer] Medical Student) * Bob Tucker, P.T.Luis Enrique. - 02/24/2023 1:40 PM CDT Physical Therapy Inpatient Treatment Note SUBJECTIVE Patient's Name: Concetta Medina Referring/Attending: Gibran Torres M.D. Medical Diagnosis: Weakness General [R53.1] Reason for Referral: PT Evaluate and Treat PT General acute Onset Date: 02/22/23 Payor: MEDICARE / Plan: MEDICARE A AND B / Product Type: Medicare / History of Present Illness: Ms. Concetta Medina is a 77 y.o. female with medical comorbidities including: ESRD (daily peritoneal dialysis), DM2 (on insulin), secondary renal hyperparathyroidism, personal history of breast cancer, HTN, HLD, SHAMIKA, and restless leg syndrome who presented with general weakness. Family/Caregiver Present: No Patient/Caregiver Goals: No goals stated Patient Comments: Patient sitting in bedside chair when approached by physical therapy, agreeable to treatment session. Patient denies any pain however did report lightheadedness with initial stand which dissipates after 30 seconds. Precautions Other Precautions: Fall, monitor blood pressure Fall Risk (65 and older) Fall in the last 12 months: No Are you fearful of falling?: No OBJECTIVE Vitals monitored throughout session; within normal ranges. Treatment consisted of: Sit to Stand Transfers # of Assistants: 1 Transfer Surface: Chair Transfer Equipment: Gait belt, Front wheeled walker Level of Assistance: Supervision/set-up Assessment/Delivery: Assessed, Facilitated, Instructed Comments: Cues for proper hand placements Stand to Sit Transfers # of Assistants: 1 Transfer Surface: Chair Transfer Equipment: Gait belt, Front wheeled walker Level of Assistance: Supervision/set-up Assessment/Delivery: Assessed, Facilitated, Instructed Comments: Cuing on walker management prior to sitting, cuing on eccentric control. Patient demonstrates good eccentric control. Gait Assessment/Training Distance (m): 91.46 m (91.46 with walker and 42.68 without assistive device) Surface: Even, Smooth/hard Device: Gait belt, Front-wheeled walker, No device # of Assistants: 1 Level of Assistance: Supervision/Set-up, Contact guard assistance (Patient was supervision with front wheel walker contact guard assistance without assistive device) Quality/Pattern: Decreased toe off, Shuffling Stability: Good with walker Assessment of Gait: Patient demonstrates the above quality, decreased gait speed and inconsistent foot placement. Cueing Provided: Verbal, Visual Training/Intervention: patient required cues for appropriate proximity to walker, walker managementtechniques, and cuing for upright posture and increased step length. Response: Fair tolerance, limited overall by fatigue and lower extremity strength. Seated Exercises Seated Exercise - Side Addressed: Bilateral Sitting Surface: Chair Seated Exercise: Ankle pumps, Hip abduction/adduction, Marching, Long arc quads Exercise Mode: Active motion against gravity Sets/Repetitions: 1/15 Seated Exercise Comments: Cues for exercise proper form and pacing. Standing Exercises Standing Exercise - Side Addressed: Bilateral Standing Exercise: Heel raises Exercise Mode: Active motion against gravity Sets/Repetitions: 1/10 The patient/family educated on safe transfer techniques with functional mobility/activity. Patient's nurse was contacted and patient's status was discussed Inpatient AVS Complete - PT: No Patient was left in bedside chair at end of session with call light in reach, all needs met and questions answered. Outcome Measures AM-PAC Inpatient Short Form: AM-PAC Basic Mobility (V.2) How much help from another person do you currently need???If the patient hasn't done an activity recently, how much help from another person do you think he/she would needif he/she tried? 1. Turning from your back to your side while in a flat bed without using bedrails?: A Little 2. Moving from lying on your back to sitting on the side of a flat bed without using bedrails?: A Little 3. Moving to and from a bed to a chair (including a wheelchair)?: A Little 4. Standing up from a chair using your arms (e.g., wheelchair, or bedside chair)?: None 5. To walk in hospital room?: A Little 6. Climbing 3-5 steps with a railing?: A Lot -[facility] Basic Mobility (V.2) Raw Score: 18 -[facility] Basic Mobility (V.2) Standardized Score: 41.05 Interpretation: Clinicians answer the -[facility] Inpatient Short Form based on observed patient activity and/or clinical judgement (ie. patient can be scored without physically performing each activity) Based on scoring guidelines using the raw score value: Those going to home had an average score at or above 18 Those going to facility had an average score at or below 17 Assessment Discharge Therapy Needs - PT: Ongoing skilled physical therapy Skilled therapy can include physical therapy provided by home health, outpatient clinic, or a post-acute facility. The location of these services is determined by the patient's care team in partnership with patient/family. Level of Care Needed - PT: Assistance with transfers (Comment), Assistance with walking and moving around the home Barriers to Discharge Home: Current functional status, Safety concerns Barriers to Discharge Comments: Patient currently has difficulty setting up her dialysis due to weakness and decreased activity tolerance From a physical therapy perspective, the level of care above has been recommended for Ms. Medina after hospital discharge. This level of care is based on her functional abilities during today's session. This may change throughout the hospital course and will be updated as appropriate. Clinical Impression of today's session: Patient participated in therapy and was able to complete transfers and gait training with and without an assistive device. Patient was able to complete [id number] with supervision and was able to ambulate up to 91 m with front wheel walker and supervision demonstrating improved activity toleranceand stability during tasks. Patient did trial ambulation without assistive device however reports feeling unsteady and demonstrated slight instability at times, recommended patient continue using front wheel walker. Patient does remain below her prior functional mobility baseline and would benefit from ongoing physical therapy skilled intervention. Rehab potential: Ms. Medina has Good potential to achieve established physical therapy goals within the time frame outlined below. Progress: Progressing toward goals Functional Goals and Timeframes: PT Inpatient Goals PT Goal #1: Patient will demonstrate the ability to perform bed mobility with bed flat, without useof bed features to progress towards prior level of function and facilitate safe discharge home. PT Goal #1 Status: Progressing PT Goal #2: Patient will demonstrate the ability to perform all transfers with modified independence with least restrictive assistive device to progress towards prior level of function and facilitatesafe discharge. PT Goal #2 Status: Progressing PT Goal #3: Patient will demonstrate the ability ambulate for 50 m with modified independence with least restrictive assistive device to progress towards prior level of function and facilitate safe discharge. PT Goal #3 Status: Progressing Plan Patient agrees with the plan of care and goals. Treatment Plan: Plan: Continue with current plan PT Frequency: PT Amount: 1 visit per day PT Frequency: 5 times per week PT Inpatient Duration : Until goals are met or hospital discharge Requires Inpatient Follow-Up: Yes PT - Next Inpatient Appointment: 02/25/23 PT Plan Comments: Progress ambulation distance, consider trial without use of front wheeled walker,lower extremity TherEx. Treatment interventions may include: Treatment/Interventions: Therapeutic exercise, Therapeutic functional activity, Therapeutic modalities as needed, Neuromuscular re-education, Gait training TERRITORY SALES MANAGER Visit Trackin Billing: Time Spent with Patient Therapeutic Interventions Gait Training (min): 13 min Therapeutic Activity (min): 12 min Time Tracking Total Timed Units (min): 25 min Total Treatment Time (min): 25 min Bob Tucker P.T.Ching * Paris Sellers, ANU, C.N.P., M.S.N. - 02/24/2023 11:50 AM CDT NEPHROLOGY CONSULT SERVICE - PROGRESS NOTE Hospital Day 2 SUBJECTIVE Ms. Medina was seen and examined in her hospital room today. She was sitting in the recliner eating breakfast. She reports peritoneal dialysis went okay overnight. She denies dyspnea, chest pain, nausea or vomiting. She denies abdominal cramping. In discussion with Ms. Medina regarding ongoing dialysis plan, she is acceptable to transitioning to [facility] intermittent hemodialysis from peritoneal dialysis as she continues to feel weak noting sheis hopeful to get back home and care for herself. She comments if hemodialysis is what she has to do to feel better, she will do this. I discussed we will plan to make her NPO at midnight for tunneled dialysis catheter placement Thursday, followed by hemodialysis. She is in agreement with plan anddenies questions for nephrology. Per chart review her peritoneal fluid cell count and culture had a clear color with total nucleatedcells <52, cultures pending. No sign of peritonitis at this time. I have reviewed the current medication list. OBJECTIVE Admission weight: 87 kg Weights for the past 120 hrs (Last 3 readings): Weight 02/22/23 2252 87 kg I/O 02/22 0000 02/22 0000 02/23 0000 02/24 2359 P.O. 860 780 Other 0 Total Intake(mL/kg) 860 (9.9) 780 (9) Urine (mL/kg/hr) 400 (0.2) 300 (0.3) Stool 0 0 Dialysis 73 1065 Total Output 473 1365 Net +387 -585 Unmeasured Stool Occurrence 1 x 1 x VITAL SIGNS Vitals No data to display. PHYSICAL EXAM General: Awake and alert, sitting in recliner, appears in no acute distress Heart: Regular rate and rhythm Lungs: Lung sounds clear to auscultation bilateral anterior lung andrews, nonlabored breathing Extremities: Trace pitting edema bilateral lower extremities Abdomen: Right midline PD catheter, capped. Nontender to palpation. DIAGNOSTICS Results from last 7 days Lab Units 02/24/2333602/23/23314 HEMOGLOBIN g/dL 9.1* 9.4* WBC x10(9)/L 7.9 8.9 PLATELETS AUTO x10(9)/L 251 263 Last 2 results Lab Units 02/24/2333602/23/235 02/23/23 0025 02/23/23 0024 02/22/23 1720 SODIUM P mmol/L -- -- 136 -- 135 SODIUM mmol/L 136 135 -- -- -- POTASSIUM P mmol/L -- -- 3.2* -- 3.3* POTASSIUM mmol/L 3.5* 3.3* -- -- -- BICARBONATE PLASMA mmol/L -- -- 18* -- 20* BICARBONATE S mmol/L 21* 21* -- -- -- BUN P mg/dL -- -- 59* -- 52* BUN mg/dL 54* 60* -- -- -- CREATININE mg/dL 14.66* 15.32* 15.25* -- 14.61* CALCIUM P mg/dL -- -- 10.1 -- 10.1 CALCIUM mg/dL 9.7 9.5 -- -- -- PHOSPHORUS INORGANIC mg/dL 6.0* 7.2* -- < > -- MAGNESIUM RL mg/dL -- -- -- -- 2.6* MAGNESIUM mg/dL 2.6* -- -- -- -- < > = values in this interval not displayed. ASSESSMENT / PLAN # ESRD related to diabetic kidney disease maintained on peritoneal dialysis since 08/15/2020 # Admitted 02/22/2023 progressive with subacute weakness and fatigue # Hyperphosphatemia related to end stage renal disease # Hypokalemia, acute Ms. Medina completed peritoneal dialysis overnight with a net fluid removal 1.2 L. We will plan to transition her to [facility] intermittent hemodialysis. We will tentatively planned for tunneled dialysis catheter placement tomorrow via Interventional Radiology. Following tunneled catheter placement will plan hemodialysis session. Tonight we will continue CCPD for 10 hours with 6 exchanges using 2.5 L fill volume of 2.5% and 1.5% dextrose Dianeal without day dwell. New Recommendations: -- CCPD tonight (see above) -- NPO at midnight -- Tunneled dialysis catheter placement in IR Thursday -- Hemodialysis following tunneled catheter placement Continued Recommendations: -- Document strict intake and output -- Adult regular diet with 800 g phosphorus/day and 1.5 L fluid restriction -- Renally dose-adjust all medications for ESRD status -- Oral calcium acetate 1334 mg 3 times daily with meals for phosphorus binding. If at any time sheis NPO please hold this medication. -- Continue oral losartan 50 mg daily and oral torsemide 7.5 mg BID Dismissal Planning: -- Please keep nephrology informed of dismissal plans to ensure outpatient hemodialysis arranged appropriately prior to hospital dismissal. Ms. Medina's case has been staffed with Dr. Elise, Nephrology environmental consultant. For questions or concerns, please contact the Nephrology C service at [phone]. Associated attestation - Miriam Elise M.D. - 02/24/2023 2:39 PM CDT I was the supervising physician in the delivery of the service. I evaluated the patient at bedside independently. Stable physical exam. She reported to me that shehas thought about it and she would like to proceed with IHD. All questions answered. Patient is planned for catheter placement tomorrow. * Asmita Vasquez, Pharm.D., R.Ph. - 02/24/2023 8:50 AM CDT Pharmacist Progress Note Reason for admission: generalized weakness PMH: ESRD (daily peritoneal dialysis), DM2 (on insulin), secondary renal hyperparathyroidism, history of breast cancer, HTN, HLD, SHAMIKA, RLS OBJECTIVE Home medications (will confirm with patient today when able) Held: amlodipine, fish oil, topical gentamicin, losartan, Changed: insulin glargine (reduced dose) New: SSI VTE Prophylaxis: heparin 5,000 units q8 hours Renal function: Estimated Creatinine Clearance: 3.3 mL/min (A) (by C-G formula based on SCr of 14.66 mg/dL (H)). ASSESSMENT / PLAN Weakness: Unclear etiology. Progressive weakness over past few months. TTE unremarkable. -Bartonella serologies negative. PCR pending. Checking as has multiple cat scratches. -Concern for orthostatic hypotension. Restarted torsemide as has residual kidney function with UOP.Holding amlodipine and losartan. -Vitamin B12 and folate normal -Medications evaluated for causes of weakness outside of orthostatic hypotension, none identified at this time Peritoneal dialysis/ESRD: Neph consulted. Too weak to complete peritoneal dialysis at home. Continued home phosphate binder and renal MV. Medications evaluated for renal adjustment. -Gathering cultures from PD to assess for infection. Cultures ngtd. -Plan to transition to iHD with catheter placement tomorrow. T2DM: A1c 6.4 % (12/2022). Continued insulin glargine (reduced dose) + SSI. Continued pravastatin (myalgias with atorvastatin). RLS: continued pramipexole. Previously trialed gabapentin, however experienced excessive fatigue per chart review. Asmita Vasquez Pharm.D., R.Ph. * Jonny Aguilar M.D. - 02/24/2023 7:08 AM CDT T Medicine 3 ([facility]) PROGRESS NOTE SUBJECTIVE INTERVAL EVENTS: Received PD yesterday (02/23) morning as well as overnight after missing session Thursday 02/22. 73 cc off between the two sessions. Not interested in transitioning to HD at this time. Overnight received lido cream for leg pain with improvement in pain. Medication list reviewed. OBJECTIVE VITAL SIGNS Temperature: [36.4 ??C-36.8 ??C] 36.4 ??C Resp Rate: [16-18] 16 Blood Pressure: (110-133)/(32-50) 133/50 SpO2: [90 %-96 %] 92 % Height: [162 cm] 162 cm Pulse Rate: [73-84] 76 Orthostatics 02/23: Symptoms: Lightheadedness x20-30 seconds Supine: 122/43 (62) Sittin/48 (63) Standin/73 (81) PHYSICAL EXAM General: Age-appearing woman in no acute distress, lying in bed HEENT: Pupils equal, reactive to light. Eyes tracking. Dentition intact. Chest: Lungs clear to auscultation anteriorly and posteriorly. Heart: Normal rate and rhythm, intermittent PVC. S1, S2 with 2/6 systolic murmur at upper sternal border. Radial, pedal pulses 2+ bilaterally. No pretibial edema. Abdomen: Soft, nondistended, nontender. Bowel sounds present. Extremities: Superficial cat scratches of bilateral ankles, no apparent open, deep, or puncture wounds. No noted lymphadenopathy of neck, axillae, or inguinal creases. Neuro: Alert, cogent. Conversational, following commands. Strength in lower extremities intact 0+. Psych: Normal mood and range of emotions. DIAGNOSTICS (diagnostics reviewed) Labs: Recent Results (from the past 24 hour(s)) Glucose, POCT Collection Time: 02/23/23 9:41 AM Result Value Glucose, POCT, B 103 Site Capillary Last Intake > 4 hours Hepatitis B Surface Antigen Collection Time: 02/23/23 12:45 PM Specimen: Blood, Venous Result Value HBs Antigen, S Negative HBs Antibody, Serum Collection Time: 02/23/23 12:45 PM Specimen: Blood, Venous Result Value HBs Antibody, S Indeterminate HBs Antibody, Quantitative, S 6.0 Cell Count and Differential, Body Fluid Collection Time: 02/23/23 2:28 PM Result Value Fluid Type Peritoneal Dialysate Gross Appearance Colorless Total Nucleated Cells <52 Diff Comments See Comment Albumin, Body Fluid Collection Time: 02/23/23 2:28 PM Result Value Albumin BF 0.3 Fluid Type, Albumin Fluid, Peritoneal Fluid Protein, Total, Body Fluid Collection Time: 02/23/23 2:28 PM Result Value Protein, Total, BF 0.2 Fluid Type, Protein, Total Fluid, Peritoneal Fluid Glucose, POCT Collection Time: 02/23/23 2:33 PM Result Value Glucose, POCT, B 229 (H) Site Capillary Last Intake 2-3 hours Glucose, POCT Collection Time: 02/23/23 6:12 PM Result Value Glucose, POCT, B 66 (L) Site Capillary Last Intake 3-4 hours Glucose, POCT Collection Time: 02/23/23 6:45 PM Result Value Glucose, POCT, B 120 Site Capillary Last Intake <1 hour Glucose, POCT Collection Time: 02/23/23 10:19 PM Result Value Glucose, POCT, B 220 (H) Site Capillary CBC with Differential, Blood Collection Time: 02/24/23 3:37 AM Result Value Hemoglobin 9.1 (L) Hematocrit 27.4 (L) Erythrocytes 2.61 (L) MCV 105.0 (H) RBC Distrib Width 14.6 Platelet Count 251 Leukocytes 7.9 Neutrophils 4.90 Lymphocytes 2.17 Monocytes 0.56 Eosinophils 0.18 Basophils 0.05 Renal Function Panel Collection Time: 02/24/23 3:37 AM Result Value Potassium, S 3.5 (L) Sodium, S 136 Chloride, S 90 (L) Bicarbonate, S 21 (L) Anion Gap 25 (H) BUN (Blood Urea Nitrogen), S 54 (H) Creatinine 14.66 (H) Estimated GFR (eGFR) <15 (L) Calcium, Total, S 9.7 Glucose, S 163 (H) Albumin, S 3.6 Phosphorus (Inorganic), S 6.0 (H) Magnesium Collection Time: 02/24/23 3:37 AM Result Value Magnesium, S 2.6 (H) Micro: Results for orders placed or performed during the hospital encounter of 02/22/23 (from the past 72 hour(s)) Bartonella Ab Panel, IgG and IgM Specimen: Blood, Venous Result Value Ayo Henselae IgG <1:128 Ayo Henselae IgM <1:20 Ayo Fonseca IgG <1:128 Ayo Fonseca IgM <1:20 Hepatitis B Surface Antigen Specimen: Blood, Venous Result Value HBs Antigen, S Negative HBs Antibody, Serum Specimen: Blood, Venous Result Value HBs Antibody, S Indeterminate HBs Antibody, Quantitative, S 6.0 Quant Gold: pending Peritoneal Cx (bacterial, fungal): gram stain, smear, and cultures pending BCx: ngtd Imaging: DX Chest Portable 1 View Result Date: 02/22/2023 Impression: No active intrathoracic disease. ASSESSMENT / PLAN Ms. Medina is a 77 y.o. female with T2DM (insulin-dependent) c/b ESRD on PD 2/2 T2DM ad secondary hyperparathyroidism, HTN, HLD, SHAMIKA, RLS, and breast cancer who is hospitalized on [place] [id number] ([facility]) for generalized weakness. Etiology is multifactorial and includes difficulty with home PD and orthostasis. #Weakness General #Dialysis Peritoneal Status (HCC) #End Stage Renal Disease on Peritoneal Dialysis #Diabetes Mellitus Type 2 With Diabetic Nephropathy (HCC) The differential for the patient's weakness is incredibly broad. There are no glaring lab abnormalities outside the fact she is on peritoneal dialysis. Elevated anion gap (29), though compensated with normal pH likely secondary to renal dysfunction. Important to rule out indolent infection such as SBP, spinal infection, Bartonella. - Orthostatic vitals - Peritoneal fluid culture (bacterial and fungal) - Bartonella PCR (given onset of symptoms around the time of new cats) - Check B12/folate/TSH/BHB/peripheral smear - Insulin glargine 6 u qPM - Moderate sliding scale insulin - Increased oral calcium acetate to 1334 mg TID with meals for phosphorus binding 02/23 - TB QuantiFERON gold (Nephrology ordered) - Strict Is/Os, daily weights - PT/OT consulted - Neph consulted: - Plan to transition to HD - IR for tunneled dialysis cath on 02/25, NPO and VTE ppx held at midnight - PD nightly until starting HD #Hypokalemia - Replete K prn #Constipation Constipation could be contributing to her clinical status (such as obstipation) - Escalate bowel regimen until concern for constipation cleared - Consider abdominal imaging (abdominal xray or CT to assess for bowel obstruction, constipation) - MiraLAX BID - Senna 2 tabs BID #Chronic back pain - low suspicion for vertebral osteomyelitis #Anemia Of Chronic Renal Failure - Continue home: multivitamins #Restless Leg Syndrome - Continue pramipexole #Hypertension #Orthostatic hypotension - Holding armin losartan, amlodipine, torsemide - compression stockings - resume torsemide #Hyperlipidemia - Holding pravastatin 40 mg (myalgias with atorvastatin) #Apnea Sleep Obstructive - No on CPAP at home #T2DM - glargine 6 U qhs - mod SSI Current Activity/Mobility: BMAT Level 4 (Able to stand and walk; needs staff assist if fall risk factors identified) Diet: Adult Diet Regular (phosphorous restriction, does not need for dialysis diet) Tubes/lines: piv, PD catheter VTE prophylaxis: sqh tid Disposition: likely home Surrogate Decision Maker: Radha Medina (daughter, ) Code status: Full Code Non-severe (moderate) Malnutrition The patient meets the ASPEN Criteria of malnutrition based on: Average estimated Intake: Less than or equal to 75% for 1 or more months Weight Loss: No Change (She has had weight loss, but not clinically significant.) Body Fat: Normal Muscle Mass: Mild Loss This is in the context of Chronic Illness. Malnutrition Present Upon Admission: Yes Agree with Registered Dietitian's assessment and treatment plan: Nutrition Interventions Interventions: Medical food supplement, Vitamin and mineral supplements Plan discussed with [facility] Medicine 3 ([facility]) Allocation Analyst, Gibran Martini M.D., who was present during sepulveda portions of the evaluation today. Please page the [facility] Medicine 3 ([facility]) service pager at [phone] with any questions. * Odessa Zee Pharm.D., R.Ph. - 02/23/2023 12:37 PM CDT Images from the original note were not included. Admission Medication History Note Medication list source: Patient Medication related information: --Patient reports taking torsemide and PhosLo - despite not showing up on the list of dispensed meds. --She could not recall taking losartan but has been filling it regularly, so likely taking this one. Prior to Admission Medications Med List Status: Pharmacy Complete Set By: Odessa Zee Pharm.D., R.Ph. at 02/23/2023 12:33 PM Taking? Last Dose Informant Start Date End Date LT allopurinoL (ZYLOPRIM) 100 mg tablet -- -- 04/08/22 -- TAKE 1 TABLET DAILY amLODIPine (NORVASC) 5 mg tablet -- -- 01/07/23 -- TAKE 1 TABLET DAILY aspirin [address] tablet -- -- -- -- Take 1 tablet by mouth daily. calcium acetate,phosphat bind, (PHOSLO) 667 mg (169 mg calcium) capsule () -- -- 04/06/21 11/25/22 TAKE 2 CAPSULES BY MOUTH THREE TIMES A DAY WITH MEALS AND 1 CAPSULE WITH SNACKS docosahexaenoic acid/epa (FISH OIL ORAL) -- -- -- -- Take 1 capsule by mouth daily. folic acid/vit B complex and C (DIALYVITE ORAL) -- -- -- -- Take 1 tablet by mouth daily. gentamicin (GARAMYCIN) 0.1 % ointment -- -- -- -- Apply 1 Application topically as directed. Apply to PD catheter site - uses when changes dressing insulin glargine (Basaglar KwikPen U-100 Insulin) 100 unit/mL (3 mL) injection -- -- 09/30/22 09/30/23 Inject 12 Units under the skin at bedtime. Notes: Updating dose losartan (COZAAR) 50 mg tablet -- -- 04/09/22 04/09/23 Take 1 tablet (50 mg total) by mouth daily. multivitamin renal failure (DIALYVITE) 100-1 mg tablet () -- -- 04/06/21 11/25/22 TAKE 1 TABLET BY MOUTH DAILY WITH DINNER pramipexole (MIRAPEX) 0.125 mg tablet -- -- 02/03/23 02/03/24 Take 1 tablet (0.125 mg total) by mouth at bedtime. pravastatin (PRAVACHOL) 40 mg tablet -- -- 01/01/23 -- TAKE 1 TABLET AT BEDTIME FOR CHOLESTEROL torsemide (DEMADEX) 5 mg tablet -- -- 04/06/21 02/23/23 Take 1.5 tablets (7.5 mg total) by mouth 2 (two) times a day with meals. Notes: No refill needed; she will call when needed. * Radha Charles RDN - 02/23/2023 10:31 AM CDT Clinical Nutrition: Initial Assessment Clinical Nutrition was requested to evaluate patient for positive nursing baseline nutrition screenwith a MST score of 2 or greater SUBJECTIVE Ms. Medina is a 77 y.o. female admitted for weakness. Nutrition related medical/surgical history: HTN, High Lipids, DMII, nephropathy, ESRD on peritonealdialysis, SHAMIKA, smoking hx. Completed visit with patient today as part of face to face care. Current Nutrition (since admission): The patient was about to order breakfast at time of visit. Sending smoothie daily. Nutrition history: The patient states that she has had several months (likely started at the beginning of Summer) of not eating well. She does claim that her appetite is poor, but she states that a bigger factor is that she is too weak to prepare food. This has progresssively gotten worse especially over the last few weeks. She states that she skips meals or is eating only bites at meals as it is too hard for her to cook and she has baseline poor po intake. Food Allergies: None. Chewing/Swallowing Issues: None. Nutrition education/counseling: RDN encouraged intake for maintenance of weight and muscle mass. The patient is open to trialing smoothies. OBJECTIVE Current nutrition orders: Dietary Orders (From admission, onward) Start Ordered 02/23/238 Adult Diet Regular; Renal (Dialysis) Diet effective now Question Answer Comment Diet texture: Regular Other restrictions: Renal (Dialysis) 02/23/238 Skin integrity: skin stable. Pertinent Labs: reviewed. Anthropometrics: Height: 162 cm Admission Weight: 87 kg (02/22/2023) Current Weight: 87 kg M[place] Body Weight (Calculated) : 54.1 kg BMI (Calculated): 33.2 kg/m?? Weight Change History: 07/29/22-94.6 kg, 01/08/23-90 kg The patient has lost 3 kg in the last month or 3.3% or 7.6 kg in the last six months or 8%. Estimated Needs: Total Calorie Needs: 5956-6424 calories/day Method to Estimate Energy Needs: [place]-St Jeor ( Basal to Basal +20% ) Weight Used for Equation Calculations: 87 kg Total Protein Needs: 76 - 88 grams/day (Method to Estimate Protein Needs (g/kg): 1.2 - 1.4 gm/kg) Weight Used to Calculate Protein Needs (Kg): 63 kg Nutrition Diagnosis: Malnutrition (undernutrition) related to poor appetite and weakness with inability to prepare foodsas evidenced by mild/moderate losses of muscle and not meeting at least 75% of her estimated needs for greater than one month Malnutrition Criteria: Average estimated Intake: Less than or equal to 75% for 1 or more months Weight Loss: No Change (She has had weight loss, but not clinically significant.) Body Fat: Normal Muscle Mass: Mild Loss Nutritional Status: Non-severe (moderate) Malnutrition Malnutrition in the Context of: Chronic Illness ASSESSMENT / PLAN Nutrition Status: Non-severe (moderate) Malnutrition (02/23/2023 10:29 AM) See Nutrition Focused Physical Findings section for details. Nutrition Intervention: Interventions: Medical food supplement, Vitamin and mineral supplements. Recommendations: No changes at this time. Monitoring/Evaluation: Nutrition parameter to monitor: Meals/Supplement Intake, Weight Status, Nausea/Vomiting/Diarrhea, Pertinent Labs Desired Outcome: Consume adequate nutrition orally Patient Goal(s): Consume 75% of 3 meals daily, Consume 75% of 1 oral nutrition supplements daily, and No further weight loss Clinical Nutrition will continue to follow. For questions about patient's nutritional care please contact pager [phone] on weekdays 07:30-16:00 or [phone] on weekends/holidays. * Asmita Vasquez PharmRosemary, R.Ph. - 02/23/2023 7:30 AM CDT Pharmacist Progress Note Reason for admission: generalized weakness PMH: ESRD (daily peritoneal dialysis), DM2 (on insulin), secondary renal hyperparathyroidism, history of breast cancer, HTN, HLD, SHAMIKA, RLS OBJECTIVE Home medications (will confirm with patient today when able) Held: amlodipine, fish oil, topical gentamicin, losartan, torsemide Changed: insulin glargine (reduced dose) New: SSI VTE Prophylaxis: heparin 5,000 units q8 hours Renal function: Estimated Creatinine Clearance: 3.2 mL/min (A) (by C-G formula based on SCr of 15.32 mg/dL (H)). ASSESSMENT / PLAN Weakness: Unclear etiology. Progressive weakness over past few months. TTE unremarkable. -Checking barteonella serologies and PCR as has multiple cat scratches. -Concern for orthostatic hypotension, holding losartan and amlodipine. -Vitamin B12 and folate pending -Medications evaluated for causes of weakness outside of orthostatic hypotension, none identified at this time Peritoneal dialysis/ESRD: Nephrology consulted. Too weak to complete peritoneal dialysis at home. Phos elevated, continued home phosphate binder. Medications evaluated for renal adjustment. -Gathering cultures from PD to assess for infection. -Evaluating possible transition to iHD T2DM: A1c 6.4 % (12/2022). Continued insulin glargine (reduced dose) + SSI. Asmita Vasquez Pharm.D., R.Ph. documented in this encounter H&P Notes * Gibran Torres M.D. - 02/23/2023 4:16 PM CDT T Medicine 3 ([facility]) Admission Supervisory Note I saw and evaluated Ms. Concetta Medina on admission today, and I agree with the findings and plan as documented in the admission note by Dr. Gregory Garay with the following comments: The patient is a 77-year-old woman with comorbidities as listed below including ESRD on peritoneal dialysis who presents with several months of progressive generalized weakness and fatigue, increasing over the past week or so such that she is no longer able to manage her ADLs nor her peritoneal dialysis. She notes that this is more prominent when standing and is associated with lightheadedness but no syncope, it is relieved by sitting down. She has had low back pain over the past year or so, recurring after a prior surgery for lumbar spinal stenosis; however she has not had any localized leg weakness at all. On examination she does get progressively lightheaded with standing and had to sit back down after about 45 seconds. Pulse did not belt changer that interval. Excellent strength in the lower extremities. Systolic flow murmur Peritoneal dialysis catheter in place with no abdominal tenderness No spinal tenderness to percussion Labs reviewed. CRP 6.5 with ESR 97. # subacute progressive generalized weakness with prominent orthostatic component # ESRD on peritoneal dialysis # macrocytic anemia # SHAIMKA not on CPAP, recent PSG (but results not available) # restless legs syndrome on pramipexole (iron stores adequate) # constipation # diabetes mellitus type 2 # hypertension Given the prominent orthostatic component of her symptoms we will check orthostatic blood pressure and pulse. We will also request PT and OT evaluation. Nephrology has been having discussions with her regarding transitioning from PD to HD (see recent note from Dr. Lincoln), as some of her symptoms may potentially be uremic. The cause of her macrocytic anemia is unclear as there does not seem to be any evidence of liver disease. We will check reticulocytes and smear In view of the significantly elevated sed rate and elevated procalcitonin (though both may be likely influenced by her ESRD), we will check peritoneal cell count and cultures (including fungal), although the lack of abdominal pain would argue against this. Her back pain does seem to be fairly chronic and we would have a low suspicion for vertebral osteomyelitis at this time. Non-severe (moderate) Malnutrition The patient meets the ASPEN Criteria of malnutrition based on: Average estimated Intake: Less than or equal to 75% for 1 or more months Weight Loss: No Change (She has had weight loss, but not clinically significant.) Body Fat: Normal Muscle Mass: Mild Loss This is in the context of Chronic Illness. Malnutrition Present Upon Admission: Yes Agree with Registered Dietitian's assessment and treatment plan: Nutrition Interventions Interventions: Medical food supplement, Vitamin and mineral supplements Please refer to the aforementioned note for additional details about our team's plan of care. I personally spent over half of a total 60 minutes in counseling and discussion with the patient and coordination of care as described above. * Gregory Garay M.D., Ph.D. - 02/23/2023 12:02 AM CDT [facility] Medicine 3 ([facility]) Admission Note SUBJECTIVE CHIEF COMPLAINT General Weakness HISTORY OF PRESENT ILLNESS Ms. Concetta Medina is a 77 y.o. female with medical comorbidities including: ESRD (daily peritoneal dialysis), DM2 (on insulin), secondary renal hyperparathyroidism, personal history of breast cancer,HTN, HLD, SHAMIKA, and restless leg syndrome who presented with general weakness. Pre-Admission Course: Over the past 3 months or so, patient has become increasingly weak/fatigued. Worsened over the pastweek prompting ED visit. Prior to onset, she was able to walk without issue, cook, and clean her townhouse. Now, she has had difficulty walking for more than few steps without having to sit down. Shestates this is mostly due to lower back pain, for which she had spinal surgery in [facility] about2 years ago. Initially surgery helped with pain, but pain recurred, then further surgery was not offered and not expected to help. Steroid injection of the lower back has not helped. She takes Tylenol only for pain due to dialysis. She has no back pain when sitting or lying. Her walking is also limited by generalized leg fatigue. Her walking is not limited by muscle weakness, leg pain, nor dyspnea on exertion. She has not been able to cook due to fatigue and thus has been losing weight due to decreased PO intake. No fevers, chills, night sweats, chest pain, saddle anesthesia, nor sensory changes (outside of chronic peripheral neuropathy). ED Course: 02/22 Stable vitals. Chest xray unremarkable. Creatinine 14.61, anion gap 29, glucose 143. Mild anemia. WBC count normal, CRP 6.5. She was admitted to Medicine 3 for further workup of weakness. Medicine 3: On the floor she was stable. Additional History: Patient reports constipation x1 week. Hard dry stools that have required her to manually self-disimpact with a finger. She typically has bowel movements daily. Social History: She lives in a townhouse with 2 new cats (acquired about 2 months ago, around the time her fatigue started). Patient lives in [place]. Two children live relatively close (one in [place], other in [place]). Alcohol- no significant use Tobacco- former smoker, estimated 40-50 pack-year history. About 1 [id number], started at 16 y.o.and quit around 68 y.o. OBJECTIVE PHYSICAL EXAM General: Age-appearing woman in no acute distress, lying in bed HEENT: Pupils equal, reactive to light. Eyes tracking. Dentition intact. Chest: Lungs clear to auscultation anteriorly and posteriorly. Heart: Normal rate and rhythm, intermittent PVC. S1, S2 with 2/6 systolic murmur at upper sternal border. Radial, pedal pulses 2+ bilaterally. No pretibial edema. Abdomen: Soft, nondistended, nontender. Bowel sounds present. Extremities: Superficial cat scratches of bilateral ankles, no apparent open, deep, or puncture wounds. No noted lymphadenopathy of neck, axillae, or inguinal creases. Neuro: Alert, cogent. Conversational, following commands. Strength in lower extremities intact 0+. Psych: Normal mood and range of emotions. DIAGNOSTICS I have reviewed the diagnostics from admission. ASSESSMENT / PLAN Ms. Concetta Medina is a 77 y.o. female with medical comorbidities including: ESRD (daily peritoneal dialysis), DM2 (on insulin), secondary renal hyperparathyroidism, personal history of breast cancer,HTN, HLD, SHAMIKA, and restless leg syndrome who presented with general weakness. Summary of Plan: - Broad workup for generic causes of weakness - Needs peritoneal dialysis while inpatient - Treat constipation #Weakness General #Dialysis Peritoneal Status (HCC) #End Stage Renal Disease on Peritoneal Dialysis #Diabetes Mellitus Type 2 With Diabetic Nephropathy (HCC) The differential for the patient's weakness is incredibly broad. There are no glaring lab abnormalities outside the fact she is on peritoneal dialysis. Elevated anion gap (29), though compensated with normal pH likely secondary to renal dysfunction. Important to rule out indolent infection such as SBP, spinal infection, Bartonella. - Orthostatic vitals - Peritoneal fluid culture (bacterial and fungal) - Bartonella PCR (given onset of symptoms around the time of new cats) - Check B12/folate/TSH/BHB/peripheral smear - Insulin glargine 6 u qPM - Moderate sliding scale insulin #Constipation Constipation could be contributing to her clinical status (such as obstipation) - Escalate bowel regimen until concern for constipation cleared - Consider abdominal imaging (abdominal xray or CT to assess for bowel obstruction, constipation) - MiraLAX BID - Senna 2 tabs BID #Anemia Of Chronic Renal Failure - Continue home: multivitamins #Restless Leg Syndrome - Continue pramipexole #Hypertension #Hyperlipidemia - Continue losartan, amlodipine, pravastatin 40 mg (myalgias with atorvastatin) #Apnea Sleep Obstructive - No on CPAP at home Baseline Mobility: BMAT Level 4 (Able to stand and walk) Diet: renal failure/dialysis diet Tubes/lines: PIV VTE prophylaxis: heparin Code status: Full Code Surrogate Decision Maker: Radha Medina (daughter, ) Disposition: Home Care discussed with the [facility] Medicine 3 ([facility]) team, Gibran Martini M.D., environmental consultant. Please contact the [facility] Medicine 3 ([facility]) team (service pager [phone]) with any questions or concerns. Gregory Garay MD, PhD Internal Medicine (Anesthesiology Certified Bench Jeweler Technician), PGY1 Pager: [phone] * Tommie Frederick M.D. - 02/22/2023 10:39 PM CDT MEDICINE 3 SENIOR H&P I saw and evaluated the patient, participating in the sepulveda portions of the service. I reviewed the resident/fellow???s note. I agree with the resident/fellow???s findings and plan. HISTORY 77F who presents with 1 month of progressive generalized weakness. Comorbidities include ESRD on PD, T2DM (A1c 6.4), SHAMIKA not on CPAP, 50 pack-year smoking history, BMI 33, HTN, HLD. On presentation she was afebrile and vitally stable. Labs significant for Hgb 10.1 (baseline), K 3.3, HCO3 20, AG 29, BUN 52, Cr 14.61 (above baseline), CRP 6.5, lactate 2, respiratory swab negative.CXR clear, EKG w/o ischemic changes, nonspecific conduction delay. Bcx pending. Weight 87 kg from 90-95 kg baseline. TTE 01/2023 w/ normal EF, no WMA, sigmoid basal septal prominence w/o dynamic obstruction, normal RV size/function Patient describes several months of progressive generalized weakness and fatigue such that over thepast week she is no longer able to cook or manage her peritoneal dialysis. Additionally with markedly decreased PO and weight loss during this period. 1 episode of nausea and NBNB emesis last night. She notes chronic ongoing back pain which is not substantively worse at present and without bowel/bladder symptoms, no sciatica. She notes acquiring new kitten around the time she became weak, she hasreceived many scratches over her lower extremities. She has worsened constipation requiring digitalextraction of stool over the past week without blood or black coloration. No cough. No fever, chills , night sweats. PHYSICAL EXAM General: awake, no acute distress Neuro: a&ox3, strength and sensation grossly intact HEENT: atraumatic, no icterus, MMM, no cervical or axillary adenopathy Cardiac: RRR, systolic murmur, no b/l LE edema, no JVP elevation appreciated, no palpable DP pulses, IVC 2 cm and > 50% collapsible Resp: bibasilar crackles o/w clear, no B-lines Abdominal: soft, nontender, nondistended, no erythema around PD catheter site Skin: warm and well perfused, shotty inguinal adenopathy MSK: no gross deformity or limitations of ROM appreciated ASSESSMENT AND PLAN 77F who presents with 1 month of progressive generalized weakness. Comorbidities include ESRD on PD, T2DM (A1c 6.4), SHAMIKA not on CPAP, 50 pack-year smoking history, BMI 33, HTN, HLD. Patient presents with subacute progressive generalized weakness, without clear localizing symptoms.She does not appear particularly inflamed on initial workup (procal 0.53 nonspecific in the settingof ESRD) and labs are reasonably near- baseline. Initial workup including VBG, cortisol, TSH unremarkable. She has a recent unremarkable TTE and is without pulmonary symptoms. No clear etiologies on med list. Interestingly she does endorse recently acquiring a cat with multiple scratches on her lower extremities and shotty inguinal adenopathy for which we have checked bartonella serologies and PCR. Additional studies pending include B12 and folate. She is at high-risk for malignancy given her smoking history and weight loss, last colonoscopy in 2016. #subacute progressive generalized weakness #ESRD on PD #T2DM (A1c 6.4) #SHAMIKA not on CPAP #50 pack-year smoking history #BMI 33 #HTN #HLD Plan: Follow-up B12, folate, Bartonella serologies/PCR Nephrology consultation for PD Age appropriate cancer screening PT/OT May require placement if no immediately reversible etiology identified Head Waitress Tommie Frederick M.D. documented in this encounter Procedure Notes * Shreya Arias M.D. - 02/25/2023 8:49 AM CDT PATIENT DISPOSITION Return to inpatient bed. POST-PROCEDURE DIAGNOSIS Central access, high flow catheter. PROCEDURE PERFORMED AND DESCRIPTION Tunneled 23 cm right IJ vein dialysis catheter. Tip at the SVC/RA junction. Ready for use. PROCEDURE DETAILS See Radiology Report SPECIMENS REMOVED None FINDINGS None. PRIMARY PROCEDURALIST Yadira Arias None. COMPLICATIONS None. DRAINS None. IMPLANTS None. ANESTHESIA Moderate Sedation. FLUIDS None ESTIMATED BLOOD LOSS <5ml CURRENT MEDICATIONS No Medication Changes FOLLOW-UP LETTER None. MAY RETURN TO WORK Not applicable PATIENT INSTRUCTIONS No return appointment documented in this encounter Consult Notes * Addis Linares, LATISHAN, LD - 02/28/2023 2:10 PM CDTAssociated Order(s): IP CONSULT TO DIETITIAN Nutrition - Progress/Education DESCRIPTION Clinical Nutrition continues to follow Ms. Concetta Medina; patient and daughter have now received renal - hemodialysis nutrition education, using a variety of education materials this afternoon. Discussed with patient in person in her hospital room Fr6C 151, and patient's daughter was on thephone to be in on the conversation. ASSESSMENT Patient and daughter were receptive to nutrition education, all questions answered at this time. May refer to education documentation for additional details. PLAN Clinical Nutrition continues to follow patient for overall nutrition needs during hospitalization. Reiterated that patient's nutrition plan/dietary modifiers would likely be flexible as patient transitions from PD to HD, and depending on lab trending. Reassured her and daughter that there would be c ontinued follow-up at her dialysis center. Also discussed grocery store/shopping items which may go well for her, and prepared-meal/meal delivery service options as patient states she does not cook and was desiring additional information on this. For questions about patient's nutritional care please contact pager [phone] on weekdays or [phone] on weekends/holidays. * Shreya Moore L.G.S.W., Gallo.S.W., M.S.W. - 02/23/2023 1:03 PM CDT Associated Order(s): IP CONSULT TO CARE MANAGEMENT Psychosocial Assessment SUBJECTIVE Assessment Information Referral Source: Provider/Service Referral Reason: Psychosocial assessment Primary Language: Greek Family Practitioner Services Used: No Sexuality/Pronoun: Straight / she/her/hers Person(s) present during interview: patient Disclaimer: They were advised of the various topics that will be assessed during this evaluation. They consented to proceed. The information provided in the assessment is based on review of the medical record as well as the face to face interview. They were advised that the content of this interview will be shared with the health care team and documented in the medical record. They were advised that anyone with access to their patient portal will have access to this information. It was discussed that staff are mandated reporters and they reported understanding. History of Present Illness #1 Cancer Breast Personal History #2 Diabetes Mellitus Type 2 With Diabetic Nephropathy (HCC) #3 Anemia Of Chronic Renal Failure #4 Restless Leg Syndrome #5 Hyperlipidemia #6 Hypertension And Chronic Kidney Disease Stage 5 (HCC) #7 Apnea Sleep Obstructive #8 Hyperparathyroidism Renal Secondary (HCC) #9 Dialysis Peritoneal Status (HCC) #10 Weakness General Social History Early Growth and Development: The patient met social and developmental milestones as expected. Family of Origin: patient is an only child Marital Status: Family / Household: patient lives alone, with her 2 cats Support System: children and friends/neighbors Primary Caregiver: self Patient's Home Environment: house Spirituality/Gnosticism/Cultural Factors: Congregational - not practicing History: No Highest Level of Education: vocational/community college Employment: retired Psychosocial Risk Factors Impacting the Patient: none Maltreatment: none reported Trauma: none reported Current Stressors Loss of independence and ability to care for herself currently Coping Skills/Strengths Playing on the computer Friends Family The outdoors Financial/Insurance Primary insurance: MEDICARE A AND B Secondary insurance: [employer] Does the patient have any financial concerns? No Advance Directives Legal Decision Maker: Self Advance Directives: Advanced Care Plan Advance Directives Status: Not Activated Baseline Functional Status Baseline Activities of Daily Living Mobility: Independent, Modified independent Dressing: Needs assistance Feeding: Independent Bathing: Needs assistance Grooming: Needs assistance Toileting: Needs assistance Behavior: Appropriate, Pleasant, Calm, Cooperative, Oriented Communication: Can write, Talks, Understands speaking, Understands Greek, Reads Shopping: Independent Transportation: Independent to drive Medication Management: Independent Housekeeping: Needs assistance Meal Prep: Needs assistance Managing Finances: Independent Assistive Devices: None (Patient denied any DME devices but reports that she likely would benefit from some.) Services/Resources: Dialysis Dialysis Schedule: Nightly - in home Baseline Services/Resources Primary care clinic and provider: Allyn Ryan M.D. Services/Resources: Dialysis Anticipated Needs Functional Status: Eating, Dressing, Grooming/hygeine, Toileting, Transfer to/from bed, chair, etc., Mobility, Meal preparation, Transportation use (drive car, use taxi/bus), Managing finances, Shopping, Housekeeping, Telephone use, Medication set-up/administration, Bathing, Tasks appropriate to patient's age/development Assistive Devices: Cane, Eyeglasses, Grab bars - toilet, Hospital Bed, Lift chair, Hand held shower, Grab bars - wall, Oxygen, Tub/shower chair/bench, Walker - front wheeled, Walker - four wheeled Services/Resources: Dialysis Dialysis Schedule: Nightly - in home Anticipated Modifications to the Patient's Home: None Transportation Needs: Support from family, Independent to drive Does the patient need discharge transport arranged?: No Anticipated Discharge Destination: Still a Patient OBJECTIVE Substance Abuse Substance Use Extended History Alcohol: Alcohol Current or past use: No Caffeine: Caffeine current or past use: No Cannabis: Cannabis current or past use: No Synthetic Cannabis current or past use: No Hallucinogens: LSD current or past use: No Mushrooms current or past use: No Ketamine current or past use: No Phencyclidine current or past use: No Other Hallucinogen current or past use: No Inhalants: Inhalants current or past use: No Nicotine: Nicotine current or past use: No Opioids: Heroin current or past use: No Methadone current or past use: No Suboxone current or past use: No Other opioid (including prescription) current or past use: No Sedative/Hypnotics/Anxiolytics: Sleeping pills current or past use: No Benzodiazepines current or past use: No Stimulants: Cocaine current or past use: No Methamphetamine current or past use: No Ecstasy current or past use: No Prescription Stimulant current or past use: No Over the counter medications: OTC medications current or past use: No Other: Mental Health Mental Health History: Patient reports no mental health history Patient reports no current concerns Mental Health Treatment History No history of Psychiatric Treatment noted Suicide Risk and Safety Risk Assessment: C-SSRS: [place] Suicide Risk Severity Scale (Short) documentation not on file. Homicidal: no Mental Status Orientation: Oriented to person, place and time Level of consciousness: Awake and alert Appearance: Age appearing and Healthy Behavior observed: Calm and Interactive Memory: Good based on report and assessment Concentration: Good based on report and assessment Cooperation: cooperative, forthcoming, guarded, and reliable Mood: happy and calm Affect: Within a normal range Speech: Articulate and Coherent Thought content: No abnormality noted Thought process: Intact and Logical, linear, and goal-directed Judgement: intact Insight: intact and adequate Review of Psychiatric Symptoms: Sleep/insomnia: no sleep concerns Energy: stable Appetite/weight: unchanged Anxiety symptoms: no symptoms of anxiety Depression symptoms: no symptoms Daysi/hypomania symptoms: no symptoms Psychotic symptoms: no symptoms Trauma response symptoms: no symptoms Disruptive, impulse-control, and conduct symptoms: no symptoms Personality symptoms: no symptoms Neurocognitive symptoms: no symptoms Neurodevelopmental symptoms: no symptoms Feeding and eating symptoms: no concerns Other Mental Health Assessments PHQ 9 Score: 0 HARPREET 7 Score: 0 ASSESSMENT / PLAN Discussion Patient is a 77 year old female who presents from home after a prolonged period of weakness at home. She reports that over the last few weeks she has gotten weaker and weaker and feels that this may be attributed to her new cats she got roughly 2 months ago. She questions if they may be impacting her health and that she may need to re home them. She reports that while she is able to manage at home at baseline she likely needs more help than she is currently getting (both from others and via equipment) but hesitates to take anything else on as she does not want to lose any more independence. SW worked to support patient through this frustration and acknowledge these feelings. Interventions Psychosocial assessment Role of social work explained Support provided to patient Discharge planning discussions started Plan Social work will follow up with patient regarding mental health needs/diagnosis Social work will continue to assist with psychosocial needs as they arise Social work will continue to provide support to patient and family as appropriate Social work will continue to assist with discharge planning as appropriate Lilli Buckley, Ngoc, M.S.W. 02/23/2023 * Thad Baca P.T., D.P.T. - 02/23/2023 10:25 AM CDT Physical Therapy Inpatient Evaluation/Treatment SUBJECTIVE Patient's Name: Concetta James Medina Referring/Attending Provider: Gibran Torres M.D. Medical Diagnosis: Weakness General [R53.1] Reason for Referral: PT Evaluate and Treat General acute Onset Date: 02/22/23 Payor: MEDICARE / Plan: MEDICARE A AND B / Product Type: Medicare / PERTINENT MEDICAL / SURGICAL HISTORY: Patient Active Problem List Diagnosis Cancer Breast Personal History Diabetes Mellitus Type 2 With Diabetic Nephropathy (HCC) Chronic Kidney Disease Stage 5 Glomerular 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) Diabetes Mellitus Type 2 With Diabetic Neuropathy Hyperglycemic (HCC) Anemia Of Chronic Renal Failure Carpal Tunnel Syndrome Restless Leg Syndrome Mononeuritis Meniere's Disease Hyperlipidemia Hypertension And Chronic Kidney Disease Stage 5 (HCC) Apnea Sleep Obstructive Periodic Limb Movement Disorder Smoking Tobacco Use Personal History Cataract Senile Nuclear Sclerosis Right Anemia Of Chronic Renal Disease Radiculopathy Lumbar Osteodystrophy Renal Hyperparathyroidism Renal Secondary (HCC) Dialysis Peritoneal Status (HCC) Fatigue Extreme Weakness General Past Surgical History: Procedure Laterality Date EXTRACTION CATARACT WITH INSERTION INTRAOCULAR LENS Right 10/26/2017 Procedure: EXTRACTION CATARACT WITH INSERTION INTRAOCULAR LENS, right eye; Surgeon: Lalo Carroll M.D.; Location: [facility] OR EXTRACTION CATARACT WITH INSERTION INTRAOCULAR LENS Left 11/09/2017 Procedure: EXTRACTION CATARACT WITH INSERTION INTRAOCULAR LENS, left eye; Surgeon: Ayleen Carroll M.D.; Location: [facility] OR HYSTERECTOMY 1988 also removed ovaries LAPAROSCOPIC INSERTION DIALYSIS CATHETER PERITONEAL N/A 03/16/2020 Procedure: LAPAROSCOPIC INSERTION DIALYSIS CATHETER PERITONEAL., Omentopexy; Surgeon: Christine Warren Jr., M.D.; Location: [facility] OR TONSILLECTOMY N/A 1951 Tonsillectomy History of Present Illness: Ms. Concetta Medina is a 77 y.o. female with medical comorbidities including: ESRD (daily peritoneal dialysis), DM2 (on insulin), secondary renal hyperparathyroidism, personal history of breast cancer, HTN, HLD, SHAMIKA, and restless leg syndrome who presented with general weakness. Prior Function/Occupational Profile Dominant Hand: Left Lives With: Alone Receives Help From: Family (Daughter lives close by. Son comes down on weekends to assist.) ADL Assistance: Independent ADL Assistance Comments: Limited by weakness-has recently had more difficulty managing her dialysis. IADL/Homemaking Assistance: Required assistance IADL/Homemaking Assistance Comments: Increased difficulty due to weakness. Daughter and son assisting with cleaning and laundry. Patient does the cooking and med/patient financial services manager. 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 Prior Mobility/Functional Transfers Level of Imperial: Independent Home Equipment Home Adaptive Equipment: None Gait Devices Owned: Front-wheeled walker, Cane, Four-wheeled walker Bathroom Equipment: Built-in shower seat, Hand-held shower head Home Living Type of Home: [facility] Home Layout: One level, Able to live on main level with bedroom/bathroom Home Access: Level entry Bathroom Shower/Tub: Walk-in shower Walk-in shower location: Main floor Bathroom Toilet: Comfort height Bathroom Accessibility: Yes Patient/Caregiver Goals: No goals stated Patient Comments: Patient is seated in bedside chair in agreeable to physical therapy evaluation treatment session. Patient denies pain, endorses slight dizziness in standing which dissipates after 30 seconds. Precautions Other Precautions: Fall, monitor blood pressure Fall Risk (65 and older) Fall in the last 12 months: No Are you fearful of falling?: No OBJECTIVE Seated bedside chair 132/61 (78) Standing 115/45 (61) Cognition Arousal/Alertness: Appropriate responses to stimuli Attention: Addressed, no concerns noted Initiation: No difficulty with initiation Following Commands: Follows all commands/directions without difficulty Safety/Judgment: Addressed, no concerns noted General ROM / Strength Screening ROM - Lower Extremity Screen: Addressed, no concerns noted Strength - Lower Extremity Screen: Impaired right & left Strength - Lower Extremity Screen Comments: Generalized weakness Sit to Stand Transfers # of Assistants: 1 Transfer Surface: Chair Transfer Equipment: Gait belt, Front wheeled walker Level of Assistance: Supervision/set-up Assessment/Delivery: Assessed, Facilitated, Instructed Comments: Cuing on hand placement with use of walker Stand to Sit Transfers # of Assistants: 1 Transfer Surface: Chair Transfer Equipment: Gait belt, Front wheeled walker Level of Assistance: Supervision/set-up Assessment/Delivery: Assessed, Facilitated, Instructed Comments: Cuing on walker management prior to sitting, cuing on eccentric control. Patient demonstrates good eccentric control. Balance Static Sitting-Balance: Good (Maintains balance without support) Dynamic Sitting-Balance: Good (Maintains balance without support) Static Standing-Balance: Good (Maintains balance without support) Dynamic Standing-Balance: Good (Maintains balance without support) Balance Comments: Standing balance good with use of front wheeled walker. Gait Assessment/Training Distance (m): 48 m Surface: Even, Smooth/hard Device: Gait belt, Front-wheeled walker # of Assistants: 1 Level of Assistance: Supervision/Set-up Quality/Pattern: Decreased toe off, Shuffling Assessment of Gait: Patient demonstrates the above quality, decreased gait speed and inconsistent foot placement. Cueing Provided: Verbal, Visual Training/Intervention: Walker height adjustment, instructed patient on appropriate proximity to walker, walker management techniques, and cuing for upright posture and increased step length. Response: Fair tolerance, limited overall by fatigue and lower extremity strength. Standing Exercises Standing Exercise - Side Addressed: Bilateral Standing Exercise: Shallow squats, Heel raises Exercise Mode: Active motion against gravity Sets/Repetitions: 1 x 10 Standing Exercise Comments: Patient was instructed upon shallow squats and heel raises, patient then performed the following exercises for 10 repetitions. Patient reports lower extremity fatigue. Activity Tolerance Endurance: Tolerates 10-20 minutes of activity Activity Tolerance Comments: Limited by lower extremity weakness and fatigue Education provided this session: -Role of physical therapy in the acute care setting -Physical therapy plan of care -Importance of regular mobility within hospital to progress activity tolerance and prevent deconditioning -Importance of utilizing appropriate assistive device with staff assistance within hospital to avoid falls with mobility. The following coordination of care occurred today: Patient's nurse was contacted and patient's status was discussed, Discussed patient's care with OT Inpatient AVS Complete - PT: No Patient was left in bedside chair at end of session with call light in reach, all needs met and questions answered. Outcome Measures [facility] Inpatient Short Form: -[facility] Basic Mobility (V.2) How much help from another person do you currently need???If the patient hasn't done an activity recently, how much help from another person do you think he/she would needif he/she tried? 1. Turning from your back to your side while in a flat bed without using bedrails?: A Little 2. Moving from lying on your back to sitting on the side of a flat bed without using bedrails?: A Little 3. Moving to and from a bed to a chair (including a wheelchair)?: A Little 4. Standing up from a chair using your arms (e.g., wheelchair, or bedside chair)?: A Little 5. To walk in hospital room?: A Little 6. Climbing 3-5 steps with a railing?: A Lot -[facility] Basic Mobility (V.2) Raw Score: 17 -[facility] Basic Mobility (V.2) Standardized Score: 39.67 Interpretation: Clinicians answer the -[facility] Inpatient Short Form based on observed patient activity and/or clinical judgement (ie. patient can be scored without physically performing each activity) Based on scoring guidelines using the raw score value: Those going to home had an average score at or above 18 Those going to facility had an average score at or below 17 Assessment Discharge Therapy Needs - PT: Ongoing skilled physical therapy Skilled therapy can include physical therapy provided by home health, outpatient clinic, or a post-acute facility. The location of these services is determined by the patient's care team in partnership with patient/family. Level of Care Needed - PT: Assistance with transfers (Comment), Assistance with walking and moving around the home Barriers to Discharge Home: Current functional status, Safety concerns Barriers to Discharge Comments: Patient currently has difficulty setting up her dialysis due to weakness and decreased activity tolerance Clinical Impression of today's session: Currently, patient presents with impairments including decreased activity tolerance resulting in the following functional deficits: Limited mobility including difficulty with bed mobility, transfers,ambulation, and stair navigation. Patient also reports lately, she has been having difficulty hooking up her dialysis due to the fact that she has due manage multiple heavy bags and ensure appropriate puppet maker at the beginning and the end of session. Rehab potential: Ms. Medina has Good potential to achieve established physical therapy goals within the time frame outlined below. Prior to admission patient was independent with ADLs, IADLs, and mobility. She reports she was ableto cook, clean, and run her dialysis overnight all on her own. However, recently she has been feeling weaker and notes more difficulty with managing cooking, cleaning, and dialysis. In today's session, patient demonstrated the ability to ambulate for greater than 100 ft with contact guard assist-supervision. She demonstrates difficulty requiring increased time to transition fromsitting standing due to lower extremity weakness. She benefits from use of front wheeled walker dueto slight instability and lower extremity weakness. She reported dizziness on transitioning to standing, but reports this dissipated after 20-30 seconds. Blood pressures were measures to above. Current mobility recommendations are assistance of 1 and use of front wheeled walker for all mobility, asof right now, she would likely not be able to complete ADLs and IADLs safely due to her weakness and decreased activity tolerance. She will benefit physical therapy to address impairments previously listed and maximize functional mobility and independence. Progress: Progressing toward goals Tiered PT Evaluation Codes: Comorbid Conditions: Arthritis, Diabetes Personal Factors: Age, Balance impairment, Sedentary lifestyle Examination elements: 3 Clinical Presentation: Stable Clinical Decision Making: Low complexity clinical decision making Functional Goals: PT Inpatient Goals PT Goal #1: Patient will demonstrate the ability to perform bed mobility with bed flat, without useof bed features to progress towards prior level of function and facilitate safe discharge home. PT Goal #1 Status: Progressing PT Goal #2: Patient will demonstrate the ability to perform all transfers with modified independence with least restrictive assistive device to progress towards prior level of function and facilitatesafe discharge. PT Goal #2 Status: Progressing PT Goal #3: Patient will demonstrate the ability ambulate for 50 m with modified independence with least restrictive assistive device to progress towards prior level of function and facilitate safe discharge. PT Goal #3 Status: Progressing Plan Patient agrees with the plan of care and goals. Treatment Plan: Plan: Plan of care initiated PT Amount: 1 visit per day PT Frequency: 5 times per week PT Inpatient Duration : Until goals are met or hospital discharge Requires Inpatient Follow-Up: Yes PT - Next Inpatient Appointment: 02/24/23 PT Plan Comments: Progress ambulation distance, consider trial without use of front wheeled walker,lower extremity TherEx. Treatment interventions may include: Treatment/Interventions: Therapeutic exercise, Therapeutic functional activity, Therapeutic modalities as needed, Neuromuscular re-education, Gait training Billing: Time Spent with Patient Evaluations PT Eval - Low Complexity: 8 min Therapeutic Interventions Therapeutic Activity (min): 11 min Time Tracking Total Timed Units (min): 11 min Total Treatment Time (min): 19 min Thad Baca P.T., D.P.T. * Marva Bravo O.T., O.T.D. - 02/23/2023 9:41 AM CDT Occupational Therapy Acute Hospital Inpatient Evaluation/Treatment SUBJECTIVE Patient's Name: Concetta Medina Referring/Attending Provider: Gibran Torres M.D. Medical Diagnosis: Weakness General [R53.1] Reason for Referral: Occupational Therapy Evaluation and Treatment OT evaluation and treatment Onset Date: 02/22/23 Payor: MEDICARE / Plan: MEDICARE A AND B / Product Type: Medicare / PERTINENT MEDICAL / SURGICAL HISTORY: Patient Active Problem List Diagnosis Cancer Breast Personal History Diabetes Mellitus Type 2 With Diabetic Nephropathy (HCC) Chronic Kidney Disease Stage 5 Glomerular 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) Diabetes Mellitus Type 2 With Diabetic Neuropathy Hyperglycemic (HCC) Anemia Of Chronic Renal Failure Carpal Tunnel Syndrome Restless Leg Syndrome Mononeuritis Meniere's Disease Hyperlipidemia Hypertension And Chronic Kidney Disease Stage 5 (HCC) Apnea Sleep Obstructive Periodic Limb Movement Disorder Smoking Tobacco Use Personal History Cataract Senile Nuclear Sclerosis Right Anemia Of Chronic Renal Disease Radiculopathy Lumbar Osteodystrophy Renal Hyperparathyroidism Renal Secondary (HCC) Dialysis Peritoneal Status (HCC) Fatigue Extreme Weakness General Past Surgical History: Procedure Laterality Date EXTRACTION CATARACT WITH INSERTION INTRAOCULAR LENS Right 10/26/2017 Procedure: EXTRACTION CATARACT WITH INSERTION INTRAOCULAR LENS, right eye; Surgeon: Lalo Carroll M.D.; Location: [facility] OR EXTRACTION CATARACT WITH INSERTION INTRAOCULAR LENS Left 11/09/2017 Procedure: EXTRACTION CATARACT WITH INSERTION INTRAOCULAR LENS, left eye; Surgeon: Ayleen Carroll M.D.; Location: [facility] OR HYSTERECTOMY 1988 also removed ovaries LAPAROSCOPIC INSERTION DIALYSIS CATHETER PERITONEAL N/A 03/16/2020 Procedure: LAPAROSCOPIC INSERTION DIALYSIS CATHETER PERITONEAL., Omentopexy; Surgeon: Christine Warren Jr., M.D.; Location: [facility] OR TONSILLECTOMY N/A 1951 Tonsillectomy History of Present Illness:Ms. Concetta Medina is a 77 y.o. female with medical comorbidities including: ESRD (daily peritoneal dialysis), DM2 (on insulin), secondary renal hyperparathyroidism, personal history of breast cancer, HTN, HLD, SHAMIKA, and restless leg syndrome who presented with general weakness. Occupational Profile: Prior Function/Occupational Profile Dominant Hand: Left Lives With: Alone Receives Help From: Family (Daughter lives close by. Son comes down on weekends to assist.) ADL Assistance: Independent ADL Assistance Comments: Limited by weakness IADL/Homemaking Assistance: Required assistance IADL/Homemaking Assistance Comments: Increased difficulty due to weakness. Daughter and son assisting with cleaning and laundry. Patient does the cooking and med/patient financial services manager. 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 Prior Mobility/Functional Transfers Level of Imperial: Independent Home Living Type of Home: [facility] Home Layout: One level, Able to live on main level with bedroom/bathroom Home Access: Level entry Bathroom Shower/Tub: Walk-in shower Walk-in shower location: Main floor Bathroom Toilet: Comfort height Bathroom Accessibility: Yes Home Equipment Home Adaptive Equipment: None Gait Devices Owned: Front-wheeled walker, Cane, Four-wheeled walker Bathroom Equipment: Built-in shower seat, Hand-held shower head Family/Caregiver Present: No Patient/Caregiver Goals: None stated Patient Comments: Upon therapist arrival, patient seated edge of bed. Agreeable to OT. Not endorsing any pain. Fall Risk (65 and older) Fall in the last 12 months: No Are you fearful of falling?: No Precautions Other Precautions: Fall, monitor blood pressure OBJECTIVE Vitals taken during session: Blood pressure and MAP. Supine: 122/43 (62) Sittin/48 (63) Standin/73 (81) Vision/Sensation Basic Assessment Baseline Vision/Correction: Wears glasses all the time Current Hearing Function: Hearing intact Activity Tolerance Endurance: Tolerates 10-20 minutes of activity Balance Static Sitting-Balance: Good (Maintains balance without support) Dynamic Sitting-Balance: Good (Maintains balance without support) Static Standing-Balance: Good (Maintains balance without support) Dynamic Standing-Balance: Fair (Maintains balance with handheld/contact guard assistance) General ROM / Strength Screening ROM - Upper Extremity Screen: Addressed, no concerns noted Strength - Upper Extremity Screen: Impaired right & left Strength - Upper Extremity Screen Comments: Generalized weakness Cognition Cognitive assessment method: Therapist observations Arousal/Alertness: Appropriate responses to stimuli Attention: Addressed, no concerns noted Initiation: No difficulty with initiation Following Commands: Follows all commands/directions without difficulty Memory: Addressed, no concerns noted Safety/Judgment: Addressed, no concerns noted Cognition Comments: No overt concerns. OT will continue to monitor and assess as appropriate. Bed Mobility - Supine to Sit # of Assistants: 0 Level of Assistance: Modified Independent Device: Bed rail, Head of bed elevated Cuing: Verbal Comments: No physical assistance required. Bed Mobility - Sit to Supine # of Assistants: 0 Level of Assistance: Modified Independent Device: Bed rail, Head of bed elevated Cuing: Verbal Comments: No physical assistance required. Sit to Stand Transfers # of Assistants: 1 Transfer Surface: Bed, Toilet/Commode Transfer Equipment: Gait belt, Front wheeled walker, Grab bars(s) Level of Assistance: Supervision/set-up Assessment/Delivery: Assessed, Facilitated, Instructed Comments: Cues for safe hand placement. No physical assistance required. Stand to Sit Transfers # of Assistants: 1 Transfer Surface: Bed, Toilet/Commode, Chair Transfer Equipment: Gait belt, Front wheeled walker, Grab bars(s) Level of Assistance: Supervision/set-up Assessment/Delivery: Assessed, Instructed, Facilitated Comments: Cues for safe hand placement. No physical assistance required. Bed, Chair, Wheelchair Transfers # of Assistants: 1 Transfer Surface: Bed, Chair (Toilet) Transfer Approach: To and from, Ambulating Transfer Equipment: Front wheeled walker Level of Assistance: Contact guard assistance Assessment/Delivery: Assessed, Instructed, Facilitated Comments: Facilitated transfer from the bed to the toilet and from the toilet to the chair. Requires contact guard assistance and front wheeled walker for safety when ambulating. Toilet Transfers # of Assistants: 1 Transfer Surface: Toilet Transfer Approach: To and from, Ambulating Transfer Equipment: Grab bars Level of Assistance: Contact guard assistance Assessment/Delivery: Assessed, Instructed, Facilitated Toilet Transfers Comments: Facilitated transfer from the bed to the toilet in preparation for toilet transfer. Requires contact guard assistance and front wheeled walker for safety when ambulating. Toileting Toileting Location: Toilet Toileting Delivery: Assessed, Instructed, Facilitated Toileting Adaptive Equipment: Grab bars Toileting Level of Assistance: Minimal assistance Toileting Comments: Facilitated toileting tasks at the toilet. Requires supervision for transfer and set up to complete deacon care. Min A provided for clothing management, as patient's pants dropped to the ground. Team Communication: Patient's nurse was contacted and patient's status was discussed, Discussed patient's care with PT Outcome Measures -[facility] Inpatient Short Form: Putting on and taking off regular lower body clothing?: A Little Putting on and taking off regular upper body clothing?: None Taking care of personal grooming such as brushing teeth?: None Bathing (including washing, rinsing, drying)?: A Little Toileting, which includes using toilet, bedpan, or urinal?: None Eating meals?: None Daily Activities Raw Score (max 24): 22 Daily Activities Standardized Score: 47.1 Interpretation: Clinicians answer the -[facility] Inpatient Short Form based on observed patient activity and/or clinical judgement (ie. patient can be scored without physically performing each activity) Based on scoring guidelines using the raw score value: Those going to home had an average score at or above 18 Those going to facility had an average score at or below 17 Patient was left in bedside chair at end of session with call light in reach, all needs met and questions answered. Assessment Discharge Therapy Needs - OT: No further skilled therapy (Pending hospital progress) Skilled therapy can include occupational therapy provided by home health, outpatient clinic, or a post-acute facility. The location of these services is determined by the patient's care team in partnership with patient/family. Level of Care Needed - OT: Assistance with shopping, Assistance with housekeeping, Assistance with transportation, Assistance with meal preparation, Assistance with showering/bathing Recommended Adaptive Equipment - OT: Toilet safety frame Barriers to Discharge Home: Current functional status, Safety concerns Clinical Impression: Ms. Concetta Medina is a 77 y.o. female who presented with general weakness. Prior to this hospitalization, patient was living at home alone. Reports independence with activities of daily living an required assistance with instrumental activities of daily living. Currently, patient presents with impairments including decreased strength and activity tolerance resulting in patient's impaired ability to safely and independently complete everyday tasks. Patient not requiring any physical assistance for bed mobility. Requires contact guard assist and front wheeled walker during room mobility and supervision for safety with transfers. Completes toileting tasks with Min assist. At this time, patient benefits from assistance of 1 for safe completion of activities of daily living and instrumental activities of daily living. Patient would benefit from continued skilled OT services to address the above deficits in order to maximize patient's functional independence with activities of daily living. Rehab potential: Ms. Medina has good potential to achieve established occupational therapy goals within the time frame outlined below. Tiered OT Evaluation Codes: Comorbid Conditions: Arthritis, Diabetes Personal Factors: Age, Balance impairment, Sedentary lifestyle Occupational Profile and History review: Expanded Performance Deficits: 1 - 3 performance deficits Evaluation Complexity: Low Functional Goals: OT Goal #1: Patient will complete toileting task and toilet transfer with modified independence to increase patient's functional independence by discharge. OT Goal #1 Status: Progressing OT Goal #2: Patient will complete total body dressing task with modified independence, using adaptive equipment as needed, to increase patient's functional independence by discharge. OT Goal #2 Status: Ongoing OT Goal #3: Patient will verbalize understanding of recommended adaptive equipment to increase patient's safety when completing daily tasks by discharge. OT Goal #3 Status: Ongoing Progress: Progressing toward goals Plan Occupational Therapy Attestation Statement: Patient agrees with the plan of care and goals. OT Frequency: OT Amount: 1 visit per day OT Frequency: 3 times per week OT Inpatient Duration : Until goals are met or hospital discharge Requires Inpatient OT Follow-Up: Yes OT - Next Inpatient Appointment: 02/25/23 Plan: Plan of care initiated OT Plan Comments: Next session: 1) lower body dressing 2) standing grooming 3) short distance household mobility Treatment interventions may include: Treatment Interventions: Therapeutic exercise, Therapeutic functional activity, Self-care/home management, Cognitive skills training Billing: Time Spent with Patient Evaluations OT Eval - Low Complexity : 10 min Therapeutic Interventions Home Management Training (min): 15 min Time Tracking Total Timed Units (min): 15 min Total Treatment Time (min): 25 min Marva Bravo O.T., O.T.Christine * Paris Sellers, ANU, C.N.P., M.S.N. - 02/23/2023 7:56 AM CDTAssociated Order(s): Nephrology consult (hospital) NEPHROLOGY CONSULT SERVICE - CONSULT NOTE Hospital Day 1 Nephrology consult (hospital) Referring Provider: Gregory Garay M.D., Ph.D. Reason for Consult: Dialysis management SUBJECTIVE CHIEF COMPLAINT Progressive weakness and fatigue HISTORY OF PRESENT ILLNESS Ms. Medina is a 77 y.o. female who presents to ED with subacute progressive weakness and fatigue. Shereports her weakness symptoms started to progress a month ago, although notes last week further progressed to where she could barely care for self. Ms. Medina has a history of end-stage renal disease related to diabetic kidney disease and has been maintained on CCPD (peritoneal dialysis) since 08/15/2020. Other past medical history includes but is not limited to: Diabetes mellitus type 2, SHAMIKA not on CPAP, 50 pack year smoking history, hypertension, hyperlipidemia and BMI 33. In the outpatient setting she utilizes peritoneal dialysis nightly at home through [facility] dialysis program using the following prescription: EDW: 88.5 kg Outpatient dialysis Rx: CCPD; 10 hours; 6 exchanges; 2.5 L fill volume; 1.5% and 2.5% glucose; No day dwell Ms. Medina was seen and examined in her hospital room this morning. She was lying in bed. She reportsher last peritoneal dialysis was Thursday night overnight. She reports making little urine output, noting if she urinates twice daily that is a lot. She reports tolerating peritoneal dialysis well. She does note over the last week she has been weak enough at times that she is on sure if she will beable to on hook from PD in the morning. She is hoping this weakness is acute and will resolve. She does note she obtained new kitten about 1 month ago and does have scratches on her ankles. I furtherexplained she does have trouble at home following renal diet and would rather eat items not on the dialysis diet. I discussed we will obtain PD fluid cultures to rule out peritonitis today. We will plan to continue CCPD tonight; although will follow closely and continue to discussions regarding hemodialysis. notes she has her discussions regarding hemodialysis prior with her outpatient retail interior designer Dr. Lincoln. She notes she has not put much thought into it until this past week when she has felt soweak at home. She request time to discuss and think about transitioning to hemodialysis with her children. I have reviewed and updated the following: allergies, current medications, and medical history OBJECTIVE Admission weight: 87 kg Weights for the past 120 hrs (Last 3 readings): Weight 02/22/23 2252 87 kg VITAL SIGNS Temperature: [36.4 ??C-36.8 ??C] 36.8 ??C Resp Rate: [17-18] 18 Blood Pressure: (92-164)/(37-153) 92/71 SpO2: [93 %-98 %] 94 % Pulse Rate: [75-85] 75 PHYSICAL EXAMINATION General: Awake and alert, lying in bed, appears in no acute distress Heart: Regular rate and rhythm Lungs: Lung sounds clear to auscultation bilateral anterior lung andrews, nonlabored breathing, continues on room air Extremities: No pitting edema bilateral lower extremities Abdomen: Right midline PD catheter, capped. Nontender to palpation. DIAGNOSTICS Recent Labs 02/23/23 0315 02/23/23 0025 02/22/23 1720 HGB 9.4 L 9.7 L 10.1 L WBC 8.9 9.4 8.1 PLT 263 258 264 Recent Labs 02/23/2331402/23/23 0025 02/22/23 1720 01/08/23 1227 NA 135 136 135 134 L KPLASMA -- 3.2 L 3.3 L 4.4 BUN 60 H 59 H 52 H 50 H CREATININE 15.32 H 15.25 H 14.61 H 11.19 H Results from last 7 days Lab Units 02/23/2331402/23/232402/23/23 0024 02/22/23 1720 CALCIUM P mg/dL -- 10.1 -- 10.1 CALCIUM mg/dL 9.5 -- -- -- ALBUMIN P g/dL -- -- -- 4.0 ALBUMIN g/dL 3.7 -- -- -- PHOSPHORUS INORGANIC mg/dL 7.2* -- 7.5* -- No results for input(s): CYSTATINC, EGFRCYSTATNC in the last 2190 hours. ASSESSMENT / PLAN # ESRD related to diabetic kidney disease maintained on peritoneal dialysis since 08/15/2020 # Admitted 02/22/2023 progressive with subacute weakness and fatigue # Hyperphosphatemia related to end stage renal disease # Hypokalemia, acute # Dialysis consent # Hepatitis B status surveillance Peritoneal fluid cultures will be obtained this morning to rule out peritonitis. Discussion was hadwith Ms. Medina regarding possibility of transitioning to hemodialysis while inpatient. We will continue CCPD tonight for 10 hours with 6 exchanges using 2.5 L fill volume using a mix of 2.5% and 1.5% dextrose Dianeal, with no day dwell. As part of required hemodialysis monitoring, the Hepatitis B antibody had a quantitative value of 153 on 01/14/2023. Therefore she has immunity and requires yearly hepatitis B antibody monitoring. Her most recent negative hepatitis B antigen was 01/14/2023. I have discussed dialysis, the major risks of dialysis and the alternatives to dialysis, including the option to decline dialysis, and the dialysis treatment team with the patient and have answered all of the patient's questions. Addendum @ 1100: I returned to visit Ms. Medina, along with Dr. Elise, nephrology environmental consultant. Dr. Elise had an additional discussion regarding switching from PD to hemodialysis with Ms. Medina. At this time Ms. Medina would like to continue PD, with the hope she regain strength and is able to continue PD at home. We note we will continue to have discussion regarding physical strength in coming days. Recommendations: -- Peritoneal cultures (Nephrology ordered and obtained) -- CCPD tonight -- Renal function panel with am labs -- Increase oral calcium acetate to 1334 mg TID with meals for phosphorus binding -- Hepatitis B antigen and antibody (Nephrology ordered) -- TB QuantiFERON gold (Nephrology ordered) Standard Recommendations -- Document strict intake and output -- Renal dialysis diet with 1.5 L/day fluid restriction -- Renally dose-adjust all medications for ESRD status -- Oral calcium acetate 1334 mg 3 times daily with meals for phosphorus binding. If at any time sheis NPO please hold this medication. -- Continues oral amlodipine 5 mg daily and oral losartan 50 mg daily Dismissal Planning: -- Please keep nephrology up to date on dismissal planning to ensure dialysis is arranged appropriately prior to hospital dismissal. Ms. Medina's case has been staffed with Dr. Elise, Nephrology environmental consultant. For questions or concerns, please contact the Nephrology C service at [phone]. Associated attestation - Miriam Elise M.D. - 02/23/2023 1:26 PM CDT I was the supervising physician in the delivery of the service. I agree with the plan detailed below. documented in this encounter Nursing Notes * Jelly Vera R.N. - 03/01/2023 1:54 PM CDT Shift Goals: Clinical Goals for the Shift: pain control Identify possible barriers to meeting goals/advancing plan of care: none End of Shift Summary: Patient was able to manage pain with scheduled pain medication and prn lidocaine cream to feet. She has a DC order to [facility] for PT specificially. RN called report to [facility]. She is going out on Hemodialysis with [facility] in [place]. She will need to set up her own rides to and from this dialysis clinic, as she has refused care management suggestion of a ride. No further questions with AVS. She was transferred home by son, who was not present at time of reviewing AVS. documented in this encounter Miscellaneous Notes * Hospital Course - Yolanda Bustos M.D. - 02/23/2023 6:33 AM CDT Ms. Concetta Medina is a 77 y.o. female with medical comorbidities including: ESRD (daily peritoneal dialysis), DM2 (on insulin), secondary renal hyperparathyroidism, personal history of breast cancer,HTN, HLD, SHAMIKA, and restless leg syndrome who presented with general weakness. Pre-Admission Course: Over the past 3 months or so, patient became increasingly weak/fatigued. Worsened over the past week prompting ED visit. Prior to onset, she was able to walk without issue, cook, and clean her townhouse. Now, she has had difficulty walking for more than few steps without having to sit down. She states this is mostly due to lower back pain, for which she had spinal surgery in [facility] about 2 years ago. Initially surgery helped with pain, but pain recurred, then further surgery was not expected to help. She has no back pain when sitting or lying. Her walking is also limited by generalized leg fatigue (but not by muscle weakness, leg pain, nor dyspnea on exertion). She has not been able tocook due to fatigue and thus losing weight due to decreased PO intake. No fevers, chills, night sweats, chest pain, saddle anesthesia, nor sensory changes (outside of chronic peripheral neuropathy). ED Course: 02/22 Stable vitals. Chest xray unremarkable. Creatinine 14.61, anion gap 29, glucose 143. Mild anemia. WBC count normal, CRP 6.5. She was admitted to Medicine 3 for further workup of her weakness. Medicine 3: On the floor she was stable. On further history, patient was having difficulty keeping up with PD at home. Was also positive for orthostasis. Home torsemide, losartan, and amlodipine were discontinued. Patient had a tunneled dialysis catheter place and was transitioned from PD to HD. She tolerated the transition well and was accepted for outpatient HD //Sat. Will also follow with home health for PT/OT. She was discharged on 03/01, and will receive transportation from her daughter to PT and dialysis. PCP Follow Up: - Please follow up with a BMP, patient's sodium low on discharge. - Please follow up on food security / community resources for meals. - Please follow up on blood pressure and consider restarting torsemide, losartan, and amlodipine astolerated. documented in this encounter Plan of Treatment Upcoming Encounters Date Type Department Care Team (Latest Contact Info) Description 07/09/2023 8:20 AM DIE HOLDER Appointment Department of Laboratory Medicine in [address] [phone] Allyn Alfredo M.D. [address] [place] [phone] 07/09/2023 9:15 AM DIE HOLDER Office Visit Department of Family Medicine, [facility], in [address] [phone] Allyn Alfredo M.D. [address] [place] [phone] 07/16/2023 12:06 PM DIE HOLDER Hospital Encounter Post Anesthesia Care Unit in [address] [phone] Cristhian Grant M.B., Ch.B., Ph.D. [address] [place] [phone] 07/16/2023 12:06 PM DIE HOLDER - 07/16/2023 3:35 PM DIE HOLDER Surgery [facility] OR [address] [place] [phone] Cristhian Grant M.B., Ch.B., Ph.D. [address] [place] [phone] CREATION FISTULA RADIOCEPHALIC ARTERIOVENOUS 07/20/2023 11:00 AM CDT Office Visit Department of Orthopedic Surgery in [address] [phone] Cindy Walker D.PLeidaMLeida [address] [place] [phone] Discharge Disposition: Home or Self Care 08/25/2023 3:15 PM CDT Telemedicine Department of Sleep Medicine in [place], [place] [address] [place] [phone] Emilee Emanuel APRN, C.N.P., D.N.P., M.S.N. [address] [place] [phone] Scheduled Procedures Name Priority Associated Diagnoses Date/Ti me CREATION FISTULA RADIOCEPHALIC ARTERIOVENOUS Chronic Kidney Disease Stage 5 Glomerular 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) 07/16/2023 12:06 PM DIE HOLDER CREATION FISTULA BRACHIOCEPHALIC ARTERIOVENOUS Chronic Kidney Disease Stage 5 Glomerular 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) 07/16/2023 12:06 PM DIE HOLDER documented as of this encounter Procedures Procedure Name Priority Date/Time Associated Diagnosis Comments GLUCOSE POCT, B Routine 03/01/2023 12:23 PM CDT GLUCOSE POCT, B Routine 03/01/2023 7:43 AM CDT RENAL FUNCTION PANEL, S Routine 03/01/2023 3:38 AM CDT MAGNESIUM, S Routine 03/01/2023 3:38 AM CDT GLUCOSE POCT, B Routine 02/28/2023 4:07 PM CDT GLUCOSE POCT, B Routine 02/28/2023 10:41 AM CDT RENAL FUNCTION PANEL, S Routine 02/28/2023 7:47 AM CDT IRON AND TOT IRON-BINDING CAPACITY, S/P Routine 02/28/2023 7:47 AM CDT CBC WITH DIFFERENTIAL, B Routine 02/28/2023 7:47 AM CDT MAGNESIUM, S Routine 02/28/2023 7:47 AM CDT FERRITIN, S Routine 02/28/2023 7:47 AM CDT GLUCOSE POCT, B Routine 02/28/2023 6:02 AM CDT GLUCOSE POCT, B Routine 02/27/2023 4:31 PM CDT HEMODIALYSIS Routine 02/27/2023 3:00 PM CDT GLUCOSE POCT, B Routine 02/27/2023 12:41 PM CDT GLUCOSE POCT, B Routine 02/27/2023 10:37 AM CDT GLUCOSE POCT, B Routine 02/27/2023 8:25 AM CDT RENAL FUNCTION PANEL, S Routine 02/27/2023 4:40 AM CDT CBC WITH DIFFERENTIAL, B Routine 02/27/2023 4:40 AM CDT MAGNESIUM, S Routine 02/27/2023 4:40 AM CDT GLUCOSE POCT, B Routine 02/26/2023 8:20 PM CDT GLUCOSE POCT, B Routine 02/26/2023 5:47 PM CDT GLUCOSE POCT, B Routine 02/26/2023 5:21 PM CDT GLUCOSE POCT, B Routine 02/26/2023 11:06 AM CDT GLUCOSE POCT, B Routine 02/26/2023 7:24 AM CDT RENAL FUNCTION PANEL, S Routine 02/26/2023 5:43 AM CDT RETICULOCYTES, B Routine 02/26/2023 5:43 AM CDT CBC WITH DIFFERENTIAL, B Routine 02/26/2023 5:43 AM CDT MAGNESIUM, S Routine 02/26/2023 5:43 AM CDT GLUCOSE POCT, B Routine 02/25/2023 8:22 PM CDT GLUCOSE POCT, B Routine 02/25/2023 5:50 PM CDT GLUCOSE POCT, B Routine 02/25/2023 11:44 AM CDT HEMODIALYSIS Routine 02/25/2023 11:08 AM CDT GLUCOSE POCT, B Routine 02/25/2023 10:54 AM CDT IR DIALYSIS / HIGH FLOW CATHETER PLACEMENT RAD - Routine (most inpatients and all outpatients) 02/25/2023 8:30 AM CDT HEMODIALYSIS Routine 02/25/2023 7:49 AM CDT ADULT OXYGEN THERAPY Routine 02/25/2023 7:24 AM CDT ADULT OXYGEN THERAPY Routine 02/25/2023 7:24 AM CDT RENAL FUNCTION PANEL, S Routine 02/25/2023 4:26 AM CDT CBC WITH DIFFERENTIAL, B Routine 02/25/2023 4:26 AM CDT MAGNESIUM, S Routine 02/25/2023 4:26 AM CDT GLUCOSE POCT, B Routine 02/24/2023 9:29 PM CDT GLUCOSE POCT, B Routine 02/24/2023 5:15 PM CDT GLUCOSE POCT, B Routine 02/24/2023 12:59 PM CDT CONTINUOUS CYCLING PERITONEAL DIALYSIS (CCPD) Routine 02/24/2023 12:02 PM CDT GLUCOSE POCT, B Routine 02/24/2023 8:41 AM CDT RENAL FUNCTION PANEL, S Routine 02/24/2023 3:37 AM CDT CBC WITH DIFFERENTIAL, B Routine 02/24/2023 3:37 AM CDT MAGNESIUM, S Routine 02/24/2023 3:37 AM CDT GLUCOSE POCT, B Routine 02/23/2023 10:19 PM CDT GLUCOSE POCT, B Routine 02/23/2023 6:45 PM CDT GLUCOSE POCT, B Routine 02/23/2023 6:12 PM CDT GLUCOSE POCT, B Routine 02/23/2023 2:33 PM CDT PROTEIN, TOTAL, BF STAT 02/23/2023 2: 28 PM CDT BACTERIAL CULTURE, AEROBIC + SUSC Routine 02/23/2023 2:28 PM CDT CELL COUNT AND DIFFERENTIAL, BF STAT 02/23/2023 2:28 PM CDT ALBUMIN, BODY FLUID STAT 02/23/2023 2 :28 PM CDT QUANTIFERON-TB GOLD PLUS, B Routine 02/23/2023 12:45 PM CDT HBS ANTIBODY, SERUM Routine 02/23/2023 1 2:45 PM CDT HEPATITIS B SURFACE ANTIGEN Routine 02/23/2023 12:45 PM CDT CONTINUOUS CYCLING PERITONEAL DIALYSIS (CCPD) Routine 02/23/2023 11:34 AM CDT GLUCOSE POCT, B Routine 02/23/2023 9:41 AM CDT CONTINUOUS AMBULATORY PERITONEAL DIALYSIS (CAPD) Routine 02/23/2023 9:27 AM CDT RENAL FUNCTION PANEL, S Routine 02/23/2023 3:15 AM CDT CBC WITH DIFFERENTIAL, B Routine 02/23/2023 3:15 AM CDT MORPHOLOGY EVAL (SPECIAL SMEAR) STAT 02/23/2023 12:25 AM CDT PERNICIOUS ANEMIA CASCADE, S STAT 02/23/2023 12:25 AM CDT NT-PRO B-TYPE NATRIURETIC PEPTIDE (BNP), S STAT 02/23/2023 12:25 AM CDT CBC WITH DIFFERENTIAL, B STAT 02/23/2023 12:25 AM CDT BASIC METABOLIC PANEL, S/P STAT 02/23/2023 12:25 AM CDT THYROID FUNCTION CASCADE, S STAT 02/23/2023 12:24 AM CDT BETA-HYDROXYBUTYRATE , S STAT 02/23/2023 12:24 AM CDT BARTONELLA PCR, B STAT 02/23/2023 12: 24 AM CDT PROCALCITONIN, S STAT 02/23/2023 12:2 4 AM CDT BARTONELLA AB PANEL, IGG AND IGM STAT 02/23/2023 12:24 AM CDT SEDIMENTATION RATE, B STAT 02/23/2023 12:24 AM CDT PHOSPHORUS (INORGANIC), S STAT 02/23/2023 12:24 AM CDT FOLATE, S STAT 02/23/2023 12:24 AM CDT CORTISOL, S STAT 02/23/2023 12:24 AM CDT PATIENT STATUS STAT 02/23/2023 12:23 AM CDT VENOUS BLOOD GAS W/O COOX STAT 02/23/2023 12:23 AM CDT documented in this encounter Results * (ABNORMAL) Glucose, POCT (03/01/2023 12:23 PM CDT) Glucose, POCT, B 202(H) 70 - 140 mg/dL 03/01/2023 12:26 PM CDT PCLX Last Intake 3-4 hours 03/01/2023 12:26 PM CDT PCLX Blood 03/01/2023 12:2 3 PM CDT 03/01/2023 12:27 PM CDT Unknown Provider LAB POCT ORDERABLES- MANUAL POC [facility] [address] [place] [address], [facility] PCLX [facility] POC [address] [place] [address] * Glucose, POCT (03/01/2023 7:43 AM CDT) Glucose, POCT, B 132 70 - 140 mg/dL 03/01/2023 7:48 AM CDT PCLX Site Capillary 03/01/2023 7:48 AM CDT PCLX Last Intake > 4 hours 03/01/2023 7:48 AM CDT PCLX Blood 03/01/2023 7:43 AM CDT 03/01/2023 7:48 AM CDT Unknown Provider LAB POCT ORDERABLES- MANUAL POC [facility] [address] [place] [address], [facility] PCLX [facility] [address] [place] [address] * Magnesium (03/01/2023 3:38 AM CDT) Magnesium, S 1.7 1.7 - 2.3 mg/dL 03/01/2023 4:50 AM CDT DTL Blood (Blood, Venous) 03/01/2023 3:38 AM CDT 03/01/2023 4:24 AM CDT Jonny Aguilar M.D. LAB BLOOD ADD-ON Performing Organization Address City/[facility]/ZIP Co de Phone Number [facility] [address] [place] [address], [facility] DTL [facility] [address] [place] [address] * (ABNORMAL) Renal Function Panel (03/01/2023 3:38 AM CDT) Potassium, S 4.2 3.6 - 5.2 mmol/L 03/01/2023 4:50 AM CDT DTL Sodium, S 131(L) 135 - 145 mmol/L 03/01/2023 4:50 AM CDT DTL Chloride, S 96(L) 98 - 107 mmol/L 03/01/2023 4:50 AM CDT DTL Bicarbonate, S 25 22 - 29 mmol/L 03/01/2023 4:50 AM CDT DTL Anion Gap 10 7 - 15 03/01/2023 4:50 AM CDT DTL BUN (Blood Urea Nitrogen), S 20 6 - 21 mg/dL 03/01/2023 4:50 AM CDT DTL Creatinine 6.80(H) 0.59 - 1.04 mg/dL 03/01/2023 4:50 AM CDT DTL Estimated GFR (eGFR) <15(L) >=60 mL/min/BSA 03/01/2023 4:50 AM CDT DTL Comment: Estimated GFR calculated using the 2020 CKD_EPI creatinine equation. Calcium, Total, S 9.3 8.8 - 10.2 mg/dL 03/01/2023 4:50 AM CDT DTL Glucose, S 125 70 - 140 mg/dL 03/01/2023 4:50 AM CDT DTL Albumin, S 3.4(L) 3.5 - 5.0 g/dL 03/01/2023 4:50 AM CDT DTL Phosphorus (Inorganic), S 3.2 2.5 - 4.5 mg/dL 03/01/2023 4:50 AM CDT DTL Blood (Blood, Venous) 03/01/2023 3:38 AM CDT 03/01/2023 4:24 AM CDT Jonny Aguilar M.D. LAB BLOOD ADD-ON [facility] [address] [place] [address], [facility] DTL [facility] [address] [place] [address] * Glucose, POCT (02/28/2023 4:07 PM CDT) Glucose, POCT, B 128 70 - 140 mg/dL 02/28/2023 4:10 PM CDT PCLX Blood 02/28/2023 4:07 PM CDT 02/28/2023 4:10 PM CDT Unknown Provider LAB POCT ORDERABLES- MANUAL POC [facility] [address] [place] [address], [facility] PCLX [facility] [address] [place] [address] * (ABNORMAL) Glucose, POCT (02/28/2023 10:41 AM CDT) Glucose, POCT, B 216(H) 70 - 140 mg/dL 02/28/2023 10:44 AM CDT PCLX Last Intake 1-2 hours 02/28/2023 10:44 AM CDT PCLX Blood 02/28/2023 10:4 1 AM CDT 02/28/2023 10:44 AM CDT Unknown Provider LAB POCT ORDERABLES- MANUAL Performing Organization Address City/[facility]/ZIP Co de Phone Number POC [facility] [address] [place] [address], [facility] PCLX [facility] POC [address] [place] [address] * (ABNORMAL) Iron and Total Iron-Binding Capacity (02/28/2023 7:47 AM CDT) Iron 80 35 - 145 mcg/dL 02/28/2023 9:13 AM CDT DTL Total Iron Binding Capacity 221(L) 250 - 400 mcg/dL 02/28/2023 9:13 AM CDT DTL Percent Saturation 36 14 - 50 % 02/28/2023 9:13 AM CDT DTL Blood (Blood, Venous) 02/28/2023 7:47 AM CDT 02/28/2023 8:40 AM CDT Jonathan Tiwari M.D. LAB BLOOD ADD-ON Performing Organization Address City/[facility]/ZIP Co de Phone Number [facility] [address] [place] [address], [facility] DTL [facility] [address] [place] [address] * (ABNORMAL) Ferritin (02/28/2023 7:47 AM CDT) Ferritin, S 1291(H) 11 - 328 mcg/L 02/28/2023 9:13 AM CDT DTL Blood (Blood, Venous) 02/28/2023 7:47 AM CDT 02/28/2023 8:40 AM CDT Jonathan Tiwari M.D. LAB BLOOD ADD-ON [facility] [address] [place] [address], [facility] [address] [place] [address] * Magnesium (02/28/2023 7:47 AM CDT) Magnesium, S 2.0 1.7 - 2.3 mg/dL 02/28/2023 9:13 AM CDT DTL Blood (Blood, Venous) 02/28/2023 7:47 AM CDT 02/28/2023 8:40 AM CDT Jonny Aguilar M.D. LAB BLOOD ADD-ON [facility] [address] [place] [address], [facility] [address] [place] [address] * (ABNORMAL) Renal Function Panel (02/28/2023 7:47 AM CDT) Potassium, S 3.9 3.6 - 5.2 mmol/L 02/28/2023 9:13 AM CDT DTL Sodium, S 132(L) 135 - 145 mmol/L 02/28/2023 9:13 AM CDT DTL Chloride, S 94(L) 98 - 107 mmol/L 02/28/2023 9:13 AM CDT DTL Bicarbonate, S 22 22 - 29 mmol/L 02/28/2023 9:13 AM CDT DTL Anion Gap 16(H) 7 - 15 02/28/2023 9:13 AM CDT DTL BUN (Blood Urea Nitrogen), S 37(H) 6 - 21 mg/dL 02/28/2023 9:13 AM CDT DTL Creatinine 10.19(H) 0.59 - 1.04 mg/dL 02/28/2023 9:13 AM CDT DTL Estimated GFR (eGFR) <15(L) >=60 mL/min/BSA 02/28/2023 9:13 AM CDT DTL Comment: Estimated GFR calculated using the 2020 CKD_EPI creatinine equation. Calcium, Total, S 9.2 8.8 - 10.2 mg/dL 02/28/2023 9:13 AM CDT DTL Glucose, S 156(H) 70 - 140 mg/dL 02/28/2023 9:13 AM CDT DTL Albumin, S 3.6 3.5 - 5.0 g/dL 02/28/2023 9:13 AM CDT DTL Phosphorus (Inorganic), S 3.9 2.5 - 4.5 mg/dL 02/28/2023 9:13 AM CDT DTL Blood (Blood, Venous) 02/28/2023 7:47 AM CDT 02/28/2023 8:40 AM CDT Jonny Aguilar M.D. LAB BLOOD ADD-ON [facility] [address] [place] [address], [facility] [place] 2[facility] [address] [place] [address] * (ABNORMAL) CBC with Differential, Blood (02/28/2023 7:47 AM CDT) Hemoglobin 8.6(L) 11.6 - 15.0 g/dL 02/28/2023 8:39 AM CDT DTL Hematocrit 26.8(L) 35.5 - 44.9 % 02/28/2023 9:33 AM CDT DTL Erythrocytes 2.45(L) 3.92 - 5.13 x10(12)/L 02/28/2023 9:33 AM CDT DTL MCV 109.4(H) 78.2 - 97.9 fL 02/28/2023 9:33 AM CDT DTL RBC Distrib Width 14.4 12.2 - 16.1 % 02/28/2023 8:39 AM CDT DTL Platelet Count 225 157 - 371 x10(9)/L 02/28/2023 8:39 AM CDT DTL Leukocytes 8.7 3.4 - 9.6 x10(9)/L 02/28/2023 8:39 AM CDT DTL Neutrophils 5.41 1.56 - 6.45 x10(9)/L 02/28/2023 9:33 AM CDT DHPM Lymphocytes 2.43 0.95 - 3.07 x10(9)/L 02/28/2023 9:33 AM CDT DTL Monocytes 0.54 0.26 - 0.81 x10(9)/L 02/28/2023 9:33 AM CDT DTL Eosinophils 0.25 0.03 - 0.48 x10(9)/L 02/28/2023 9:33 AM CDT DTL Basophils 0.05 0.01 - 0.08 x10(9)/L 02/28/2023 9:33 AM CDT DTL Blood (Blood, Venous) 02/28/2023 7:47 AM CDT 02/28/2023 8:22 AM CDT Jonny Aguilar M.D. LAB BLOOD ADD-ON Performing Organization Address City/[facility]/ZIP Co de Phone Number [facility] [address] [place] [address], [facility] DTL [facility] [address] [place] [address] DHPM [facility] [address] [place] [address] * Glucose, POCT (02/28/2023 6:02 AM CDT) [facility] Glucose, POCT, B 113 70 - 140 mg/dL 02/28/2023 6:07 AM CDT PCLX Site Capillary 02/28/2023 6:07 AM CDT PCLX Last Intake > 4 hours 02/28/2023 6:07 AM CDT PCLX Blood 02/28/2023 6:02 AM CDT 02/28/2023 6:07 AM CDT Unknown Provider LAB POCT ORDERABLES- MANUAL POC [facility] [address] [place] [address], [facility] PCLX [facility] POC [address] [place] [address] * (ABNORMAL) Glucose, POCT (02/27/2023 4:31 PM CDT) Glucose, POCT, B 155(H) 70 - 140 mg/dL 02/27/2023 4:36 PM CDT PCLX Site Capillary 02/27/2023 4:36 PM CDT PCLX Blood 02/27/2023 4:31 PM CDT 02/27/2023 4:37 PM CDT Unknown Provider LAB POCT ORDERABLES- MANUAL Performing Organization Address City/[facility] Co de Phone Number POC [facility] [address] [place] [address], [place] PCLX [facility] POC [address] [place] [address] * (ABNORMAL) Glucose, POCT (02/27/2023 12:41 PM CDT) Glucose, POCT, B 254(H) 70 - 140 mg/dL 02/27/2023 12:47 PM CDT PCLX Site Capillary 02/27/2023 12:47 PM CDT PCLX Last Intake 3-4 hours 02/27/2023 12:47 PM CDT PCLX Blood 02/27/2023 12:4 1 PM CDT 02/27/2023 12:47 PM CDT Unknown Provider LAB POCT ORDERABLES- MANUAL Performing Organization Address [facility] de Phone Number POC [facility] [address] [place] [address], [place] [facility] POC [address] [place] [address] * (ABNORMAL) Glucose, POCT (02/27/2023 10:37 AM CDT) Glucose, POCT, B 279(H) 70 - 140 mg/dL 02/27/2023 10:41 AM CDT PCLX Site Capillary 02/27/2023 10:41 AM CDT PCLX Last Intake 2-3 hours 02/27/2023 10:41 AM CDT PCLX Blood 02/27/2023 10:3 7 AM CDT 02/27/2023 10:41 AM CDT Unknown Provider LAB POCT ORDERABLES- MANUAL Performing Organization Address [facility] Co de Phone Number POC [facility] [address] [place] [address], [facility] PCLX [facility] POC [address] [place] [address] * Glucose, POCT (02/27/2023 8:25 AM CDT) Glucose, POCT, B 127 70 - 140 mg/dL 02/27/2023 8:30 AM CDT PCLX Site Capillary 02/27/2023 8:30 AM CDT PCLX Blood 02/27/2023 8:25 AM CDT 02/27/2023 8:31 AM CDT Unknown Provider LAB POCT ORDERABLES- MANUAL Performing Organization Address [facility] Co de Phone Number [facility] [address] [place] [address], [facility] PCLX [facility] POC [address] [place] [address] * Magnesium (02/27/2023 4:40 AM CDT) Magnesium, S 1.8 1.7 - 2.3 mg/dL 02/27/2023 6:10 AM CDT DTL Blood (Blood, Venous) 02/27/2023 4:40 AM CDT 02/27/2023 5:51 AM CDT Jonny Aguilar M.D. LAB BLOOD ADD-ON Performing Organization Address City/[facility]/ZIP Co de Phone Number [facility] [address] [place] [address], [facility] DTL [facility] [address] [place] [address] * (ABNORMAL) Renal Function Panel (02/27/2023 4:40 AM CDT) Potassium, S 3.5(L) 3.6 - 5.2 mmol/L 02/27/2023 6:10 AM CDT DTL Sodium, S 133(L) 135 - 145 mmol/L 02/27/2023 6:10 AM CDT DTL Chloride, S 95(L) 98 - 107 mmol/L 02/27/2023 6:10 AM CDT DTL Bicarbonate, S 24 22 - 29 mmol/L 02/27/2023 6:10 AM CDT DTL Anion Gap 14 7 - 15 02/27/2023 6:10 AM CDT DTL BUN (Blood Urea Nitrogen), S 28(H) 6 - 21 mg/dL 02/27/2023 6:10 AM CDT DTL Creatinine 8.49(H) 0.59 - 1.04 mg/dL 02/27/2023 6:10 AM CDT DTL Estimated GFR (eGFR) <15(L) >=60 mL/min/BSA 02/27/2023 6:10 AM CDT DTL Comment: Estimated GFR calculated using the 2020 CKD_EPI creatinine equation. Calcium, Total, S 9.1 8.8 - 10.2 mg/dL 02/27/2023 6:10 AM CDT DTL Glucose, S 116 70 - 140 mg/dL 02/27/2023 6:10 AM CDT DTL Albumin, S 3.5 3.5 - 5.0 g/dL 02/27/2023 6:10 AM CDT DTL Phosphorus (Inorganic), S 3.6 2.5 - 4.5 mg/dL 02/27/2023 6:10 AM CDT DTL Blood (Blood, Venous) 02/27/2023 4:40 AM CDT 02/27/2023 5:51 AM CDT Jonny Aguilar M.D. LAB BLOOD ADD-ON [facility] [address] [place] [address], [facility] [place]note 2] [address] [place] [address] * (ABNORMAL) CBC with Differential, Blood (02/27/2023 4:40 AM CDT) Hemoglobin 9.0(L) 11.6 - 15.0 g/dL 02/27/2023 5:40 AM CDT DTL Hematocrit 27.8(L) 35.5 - 44.9 % 02/27/2023 5:40 AM CDT DTL Erythrocytes 2.55(L) 3.92 - 5.13 x10(12)/L 02/27/2023 5:40 AM CDT DTL MCV 109.0(H) 78.2 - 97.9 fL 02/27/2023 5:40 AM CDT DTL RBC Distrib Width 14.3 12.2 - 16.1 % 02/27/2023 5:40 AM CDT DTL Platelet Count 218 157 - 371 x10(9)/L 02/27/2023 5:40 AM CDT DTL Leukocytes 8.3 3.4 - 9.6 x10(9)/L 02/27/2023 5:40 AM CDT DTL Neutrophils 4.90 1.56 - 6.45 x10(9)/L 02/27/2023 5:40 AM CDT DHPM Lymphocytes 2.45 0.95 - 3.07 x10(9)/L 02/27/2023 5:40 AM CDT DTL Monocytes 0.63 0.26 - 0.81 x10(9)/L 02/27/2023 5:40 AM CDT DTL Eosinophils 0.22 0.03 - 0.48 x10(9)/L 02/27/2023 5:40 AM CDT DTL Basophils 0.06 0.01 - 0.08 x10(9)/L 02/27/2023 5:40 AM CDT DTL Blood (Blood, Venous) 02/27/2023 4:40 AM CDT 02/27/2023 5:32 AM CDT Jonny Aguilar M.D. LAB BLOOD ADD-ON [facility] [address] [place] [address], [place] DTL [facility] [address] [place] [address] [facility] [address] [place] [address] * (ABNORMAL) Glucose, POCT (02/26/2023 8:20 PM CDT) Glucose, POCT, B 213(H) 70 - 140 mg/dL 02/26/2023 8:30 PM CDT PCLX Site Capillary 02/26/2023 8:30 PM CDT PCLX Last Intake 3-4 hours 02/26/2023 8:30 PM CDT PCLX Blood 02/26/2023 8:20 PM CDT 02/26/2023 8:30 PM CDT Unknown Provider LAB POCT ORDERABLES- MANUAL Performing Organization Address City/[facility]/ZIP Co de Phone Number POC [facility] [address] [place] [address], [facility] PCLX [facility] POC [address] [place] [address] * Glucose, POCT (02/26/2023 5:47 PM CDT) Glucose, POCT, B 117 70 - 140 mg/dL 02/26/2023 6:05 PM CDT PCLX Site Capillary 02/26/2023 6:05 PM CDT PCLX Blood 02/26/2023 5:47 PM CDT 02/26/2023 6:06 PM CDT Unknown Provider LAB POCT ORDERABLES- MANUAL Performing Organization Address City/[facility]/ZIP Co de Phone Number POC [facility] [address] [place] [address], [place] [facility] POC [address] [place] [address] * Glucose, POCT (02/26/2023 5:21 PM CDT) Glucose, POCT, B 122 70 - 140 mg/dL 02/26/2023 5:24 PM CDT PCLX Site Capillary 02/26/2023 5:24 PM CDT PCLX Last Intake > 4 hours 02/26/2023 5:24 PM CDT PCLX Blood 02/26/2023 5:21 PM CDT 02/26/2023 5:25 PM CDT Unknown Provider LAB POCT ORDERABLES- MANUAL POC [facility] [address] [place] [address], [facility] PCLX [facility] POC [address] [place] [address] * (ABNORMAL) Glucose, POCT (02/26/2023 11:06 AM CDT) Glucose, POCT, B 179(H) 70 - 140 mg/dL 02/26/2023 11:09 AM CDT PCLX Site Capillary 02/26/2023 11:09 AM CDT PCLX Blood 02/26/2023 11:0 6 AM CDT 02/26/2023 11:09 AM CDT Unknown Provider LAB POCT ORDERABLES- MANUAL Performing Organization Address [facility] Co de Phone Number POC [facility] [address] [place] [address], [facility] PCLX [facility] POC [address] [place] [address] * Glucose, POCT (02/26/2023 7:24 AM CDT) Glucose, POCT, B 111 70 - 140 mg/dL 02/26/2023 7:33 AM CDT PCLX Site Capillary 02/26/2023 7:33 AM CDT PCLX Last Intake > 4 hours 02/26/2023 7:33 AM CDT PCLX Blood 02/26/2023 7:24 AM CDT 02/26/2023 7:33 AM CDT Unknown Provider LAB POCT ORDERABLES- MANUAL Performing Organization Address City/[facility]/ZIP Co de Phone Number POC [facility] [address] [place] [address], [place] [facility] POC [address] [place] [address] * (ABNORMAL) Reticulocytes (02/26/2023 5:43 AM CDT) Reticulocytes, B 2.73(H) 0.60 - 2.71 % 02/26/2023 6:18 AM CDT DTL Absolute Reticulocyte 65.2 30.4 - 110.9 x10(9)/L 02/26/2023 6:18 AM CDT DTL Blood (Blood, Venous) 02/26/2023 5:43 AM CDT 02/26/2023 6:08 AM CDT Gibran Torres M.D. LAB BLOOD ADD-ON Performing Organization Address City/[facility]/ZIP Co de Phone Number [facility] [address] [place] [address], [facility] [address] [place] [address] * Magnesium (02/26/2023 5:43 AM CDT) Magnesium, S 2.1 1.7 - 2.3 mg/dL 02/26/2023 6:38 AM CDT DTL Blood (Blood, Venous) 02/26/2023 5:43 AM CDT 02/26/2023 6:22 AM CDT Jonny Aguilar M.D. LAB BLOOD ADD-ON Performing Organization Address [facility] Co de Phone Number [facility] [address] [place] [address], [place] [address] * (ABNORMAL) Renal Function Panel (02/26/2023 5:43 AM CDT) Potassium, S 3.7 3.6 - 5.2 mmol/L 02/26/2023 6:38 AM CDT DTL Sodium, S 137 135 - 145 mmol/L 02/26/2023 6:38 AM CDT DTL Chloride, S 97(L) 98 - 107 mmol/L 02/26/2023 6:38 AM CDT DTL Bicarbonate, S 23 22 - 29 mmol/L 02/26/2023 6:38 AM CDT DTL Anion Gap 17(H) 7 - 15 02/26/2023 6:38 AM CDT DTL BUN (Blood Urea Nitrogen), S 40(H) 6 - 21 mg/dL 02/26/2023 6:38 AM CDT DTL Creatinine 11.37(H) 0.59 - 1.04 mg/dL 02/26/2023 6:38 AM CDT DTL Estimated GFR (eGFR) <15(L) >=60 mL/min/BSA 02/26/2023 6:38 AM CDT DTL Comment: Estimated GFR calculated using the 2020 CKD_EPI creatinine equation. Calcium, Total, S 9.0 8.8 - 10.2 mg/dL 02/26/2023 6:38 AM CDT DTL Glucose, S 114 70 - 140 mg/dL 02/26/2023 6:38 AM CDT DTL Albumin, S 3.3(L) 3.5 - 5.0 g/dL 02/26/2023 6:38 AM CDT DTL Phosphorus (Inorganic), S 3.9 2.5 - 4.5 mg/dL 02/26/2023 6:38 AM CDT DTL Blood (Blood, Venous) 02/26/2023 5:43 AM CDT 02/26/2023 6:22 AM CDT Jonny Aguilar M.D. LAB BLOOD ADD-ON [address] [address], [facility] [address] [address] * (ABNORMAL) CBC with Differential, Blood (02/26/2023 5:43 AM CDT) Hemoglobin 8.3(L) 11.6 - 15.0 g/dL 02/26/2023 6:18 AM CDT DTL Hematocrit 25.9(L) 35.5 - 44.9 % 02/26/2023 6:18 AM CDT DTL Erythrocytes 2.39(L) 3.92 - 5.13 x10(12)/L 02/26/2023 6:18 AM CDT DTL MCV 108.4(H) 78.2 - 97.9 fL 02/26/2023 6:18 AM CDT DTL RBC Distrib Width 14.8 12.2 - 16.1 % 02/26/2023 6:18 AM CDT DTL Platelet Count 217 157 - 371 x10(9)/L 02/26/2023 6:18 AM CDT DTL Leukocytes 8.3 3.4 - 9.6 x10(9)/L 02/26/2023 6:18 AM CDT DTL Neutrophils 4.83 1.56 - 6.45 x10(9)/L 02/26/2023 6:18 AM CDT DHPM Lymphocytes 2.68 0.95 - 3.07 x10(9)/L 02/26/2023 6:18 AM CDT DTL Monocytes 0.58 0.26 - 0.81 x10(9)/L 02/26/2023 6:18 AM CDT DTL Eosinophils 0.20 0.03 - 0.48 x10(9)/L 02/26/2023 6:18 AM CDT DTL Basophils 0.05 0.01 - 0.08 x10(9)/L 02/26/2023 6:18 AM CDT DTL Blood (Blood, Venous) 02/26/2023 5:43 AM CDT 02/26/2023 6:08 AM CDT Jonny Aguilar M.D. LAB BLOOD ADD-ON [facility] [address] [place] [address], [facility] DTL [facility] [address] [place] [address] DHPM [facility] [address] [place] [address] * (ABNORMAL) Glucose, POCT (02/25/2023 8:22 PM CDT) [facility] Glucose, POCT, B 209(H) 70 - 140 mg/dL 02/25/2023 8:43 PM CDT PCLX Site Capillary 02/25/2023 8:43 PM CDT PCLX Last Intake 3-4 hours 02/25/2023 8:43 PM CDT PCLX Blood 02/25/2023 8:22 PM CDT 02/25/2023 8:43 PM CDT Unknown Provider LAB POCT ORDERABLES- MANUAL POC [facility] [address] [place] [address], [facility] PCLX [facility] POC [address] [place] [address] * (ABNORMAL) Glucose, POCT (02/25/2023 5:50 PM CDT) Glucose, POCT, B 181(H) 70 - 140 mg/dL 02/25/2023 6:04 PM CDT PCLX Site Capillary 02/25/2023 6:04 PM CDT PCLX Last Intake 3-4 hours 02/25/2023 6:04 PM CDT PCLX Blood 02/25/2023 5:50 PM CDT 02/25/2023 6:04 PM CDT Unknown Provider LAB POCT ORDERABLES- MANUAL Performing Organization Address City/[facility]/ZIP Co de Phone Number POC [facility] [address] [place] [address], [place] PCLX [facility] POC [address] [place] [address] * (ABNORMAL) Glucose, POCT (02/25/2023 11:44 AM CDT) Glucose, POCT, B 154(H) 70 - 140 mg/dL 02/25/2023 11:56 AM CDT PCLX Site Capillary 02/25/2023 11:56 AM CDT PCLX Last Intake NPO 02/25/2023 11:56 AM CDT PCLX Blood 02/25/2023 11:4 4 AM CDT 02/25/2023 11:57 AM CDT Unknown Provider LAB POCT ORDERABLES- MANUAL POC [facility] [address] [place] [address], [place] [facility]CL[facility] POC [address] [place] [address] * (ABNORMAL) Glucose, POCT (02/25/2023 10:54 AM CDT) Glucose, POCT, B 168(H) 70 - 140 mg/dL 02/25/2023 10:58 AM CDT PCLX Site Capillary 02/25/2023 10:58 AM CDT PCLX Blood 02/25/2023 10:5 4 AM CDT 02/25/2023 10:58 AM CDT Unknown Provider LAB POCT ORDERABLES- MANUAL POC [facility] [address] [place] [address], [facility] PCLX [facility] POC [address] [place] [address] * IR Dialysis / High Flow Catheter Placement (02/25/2023 8:30 AM CDT) Anatomical Region Laterality Modality Body, Vascular Interventiona l RST LOS, Vascular Interventional ARZ LOS, Vascular Interventional FLA LOS N/A X-Ray Angiography 02/25/2023 8:51 AM CDT Impressions 02/25/2023 8:56 AM CDT Placement of a tunneled right IJ dialysis catheter. Tip at the SVC/RA junction. Ready for use. NR Narrative 02/25/2023 8:56 AM CDT EXAM: IR DIALYSIS / HIGH FLOW CATHETER PLACEMENT CLINICAL HISTORY: Dialysis access. TECHNIQUE/FINDINGS: Patient was prepared and draped in the standard sterile fashion over the right upper chest and low neck. 1% lidocaine used for local anesthesia. Ultrasound was used to demonstrate patency and compressibility of the right IJ vein, and under ultrasound guidance, the vein was accessed. A picture was created and stored. Using Seldinger technique, a guidewire was advanced into the IVC. Over this, a 5F, 20.5cm dilator was advanced and used to approximate the length of the anticipated catheter. The wire was removed, and a saline-filled syringe attached to a one-way stop-cock was placed on the dilator while attention was turned to development of a chest wall tunnel. A small incision was made on the anterior right chest and the 14.5F, 23cm dialysis catheter was tunneled from the chest incision to the venotomy site. A guidewire was readvanced into the IVC and the tract was serially dilated before placing a peel-away sheath. The catheter was advanced through the sheath and the sheath was removed. The tip was adjusted such that it sits at the SVC/RA junction. Both lumen flush and aspirate easily and were capped. The venotomy site was closed with a single buried 4-0 Vicryl stitch, and the catheter was sutured to the skin with 2-0 Prolene. Each lumen was flushed with 4% sodium citrate solution. The catheter is ready for use. No immediate complications. PREPROCEDURE: For placement of this central venous access, we followed catheter checklist and a standardized protocol. The position of the catheter tip was confirmed under fluoroscopic guidance, and a final image of the catheter position was obtained. Ready for use. Patient seen, evaluated, history reviewed, and approved [...] procedure. The total intra-procedural sedation time was: 10 minutes. Procedure Note Shreya Arias M.D. - 02/25/2023 EXAM: IR DIALYSIS / HIGH FLOW CATHETER PLACEMENT CLINICAL HISTORY: Dialysis access. TECHNIQUE/FINDINGS: Patient was prepared and draped in the standardsterile fashion over the right upper chest and low neck. 1% lidocaine used for local anesthesia.Ultrasound was used to demonstrate patency and compressibility of the right IJ vein, and under ultrasoundguidance, the vein was accessed. A picture was created and stored. Using Seldinger technique, aguidewire was advanced into the IVC. Over this, a 5F, 20.5cm dilator was advanced and used toapproximate the length of the anticipated catheter. The wire was removed, and a saline-filled syringeattached to a one-way stop-cock was placed on the dilator while attention was turned todevelopment of a chest wall tunnel. A small incision was made on the anterior right chest and the14.5F, 23cm dialysis catheter was tunneled from the chest incision to the venotomy site. A guidewire wasreadvanced into the IVC and the tract was serially dilated before placing a peel-away sheath. Thecatheter was advanced through the sheath and the sheath was removed. The tip was adjusted suchthat it sits at the SVC/RA junction. Both lumen flush and aspirate easily and were capped. Thevenotomy site was closed with a single buried 4-0 Vicryl stitch, and the catheter was sutured to the skinwith 2- 0 Prolene. Each lumen was flushed with 4% sodium citrate solution. The catheter is readyfor use. No immediate complications. PREPROCEDURE: For placement of this central venous access, we followedcatheter checklist and a standardized protocol. The position of the catheter tip was confirmedunder fluoroscopic guidance, and a final image of the catheter position was obtained. Ready for use. Patient seen, evaluated, history reviewed, and approved for sedation.Airway, heart, and lung exam satisfactory for sedation. Discussed risks, benefits, alternatives forprocedure, and/or sedation. The roles and responsibilities of care team members, residents, andfellows were discussed. Patient understands information and questions answered. Informed consent obtainedfrom the patient. Immediately prior to starting the procedure, in the presence of theassisting personnel, a procedural pause was conducted to verify correct patient identity andverification of procedure to be performed, and as applicable, correct side and site, correct patientposition, availability of implants, special equipment, or special requirements, and all image andspecimen identification data. INTRAPROCEDURE: Moderate sedation was administered by sedation nurse undermy supervision. The patient was continuously monitored with real time oxygen saturation, heartrate, ECG rhythm strip and blood pressure throughout administration of the sedation andperformance of the procedure. The total intra-procedural sedation time was: 10 minutes. IMPRESSION: Placement of a tunneled right IJ dialysis catheter. Tip at the SVC/RAjunction. Ready for use. NR Jonny Aguilra M.D. IMG IR PROCEDURES * (ABNORMAL) Magnesium (02/25/2023 4:26 AM CDT) Magnesium, S 2.6(H) 1.7 - 2.3 mg/dL 02/25/2023 5:45 AM CDT DTL Blood (Blood, Venous) 02/25/2023 4:26 AM CDT 02/25/2023 5:28 AM CDT Jonny Aguilar M.D. LAB BLOOD ADD-ON [address] [address], [facility] [address] [address] * (ABNORMAL) Renal Function Panel (02/25/2023 4:26 AM CDT) Potassium, S 3.4(L) 3.6 - 5.2 mmol/L 02/25/2023 5:45 AM CDT DTL Sodium, S 138 135 - 145 mmol/L 02/25/2023 5:45 AM CDT DTL Chloride, S 92(L) 98 - 107 mmol/L 02/25/2023 5:45 AM CDT DTL Bicarbonate, S 21(L) 22 - 29 mmol/L 02/25/2023 5:45 AM CDT DTL Anion Gap 25(H) 7 - 15 02/25/2023 5:45 AM CDT DTL BUN (Blood Urea Nitrogen), S 51(H) 6 - 21 mg/dL 02/25/2023 5:45 AM CDT DTL Creatinine 14.02(H) 0.59 - 1.04 mg/dL 02/25/2023 5:45 AM CDT DTL Estimated GFR (eGFR) <15(L) >=60 mL/min/BSA 02/25/2023 5:45 AM CDT DTL Comment: Estimated GFR calculated using the 2020 CKD_EPI creatinine equation. Calcium, Total, S 10.1 8.8 - 10.2 mg/dL 02/25/2023 5:45 AM CDT DTL Glucose, S 181(H) 70 - 140 mg/dL 02/25/2023 5:45 AM CDT DTL Albumin, S 3.5 3.5 - 5.0 g/dL 02/25/2023 5:45 AM CDT DTL Phosphorus (Inorganic), S 6.0(H) 2.5 - 4.5 mg/dL 02/25/2023 5:45 AM CDT DTL Blood (Blood, Venous) 02/25/2023 4:26 AM CDT 02/25/2023 5:28 AM CDT Jonny Aguilar M.D. LAB BLOOD ADD-ON [address] [address], [facility] [address] [address] * (ABNORMAL) CBC with Differential, Blood (02/25/2023 4:26 AM CDT) Hemoglobin 8.8(L) 11.6 - 15.0 g/dL 02/25/2023 5:15 AM CDT DTL Hematocrit 27.1(L) 35.5 - 44.9 % 02/25/2023 5:15 AM CDT DTL Erythrocytes 2.55(L) 3.92 - 5.13 x10(12)/L 02/25/2023 5:15 AM CDT DTL MCV 106.3(H) 78.2 - 97.9 fL 02/25/2023 5:15 AM CDT DTL RBC Distrib Width 14.6 12.2 - 16.1 % 02/25/2023 5:15 AM CDT DTL Platelet Count 247 157 - 371 x10(9)/L 02/25/2023 5:15 AM CDT DTL Leukocytes 7.7 3.4 - 9.6 x10(9)/L 02/25/2023 5:15 AM CDT DTL Neutrophils 4.32 1.56 - 6.45 x10(9)/L 02/25/2023 5:15 AM CDT DHPM Lymphocytes 2.46 0.95 - 3.07 x10(9)/L 02/25/2023 5:15 AM CDT DTL Monocytes 0.65 0.26 - 0.81 x10(9)/L 02/25/2023 5:15 AM CDT DTL Eosinophils 0.22 0.03 - 0.48 x10(9)/L 02/25/2023 5:15 AM CDT DTL Basophils 0.06 0.01 - 0.08 x10(9)/L 02/25/2023 5:15 AM CDT DTL Blood (Blood, Venous) 02/25/2023 4:26 AM CDT 02/25/2023 5:04 AM CDT Jonny Aguilar M.D. LAB BLOOD ADD-ON [facility] [address] [place] [address], [facility] DTL [facility] [address] [place] [address] DHPM [facility] [address] [place] [address] * (ABNORMAL) Glucose, POCT (02/24/2023 9:29 PM CDT) Glucose, POCT, B 183(H) 70 - 140 mg/dL 02/24/2023 9:35 PM CDT PCLX Blood 02/24/2023 9:29 PM CDT 02/24/2023 9:35 PM CDT Unknown Provider LAB POCT ORDERABLES- MANUAL POC [facility] [address] [place] [address], [facility] PCLX [facility] POC [address] [place] [address] * (ABNORMAL) Glucose, POCT (02/24/2023 5:15 PM CDT) Glucose, POCT, B 144(H) 70 - 140 mg/dL 02/24/2023 5:17 PM CDT PCLX Site Capillary 02/24/2023 5:17 PM CDT PCLX Last Intake 2-3 hours 02/24/2023 5:17 PM CDT PCLX Blood 02/24/2023 5:15 PM CDT 02/24/2023 5:17 PM CDT Unknown Provider LAB POCT ORDERABLES- MANUAL Performing Organization Address City/[facility] Co de Phone Number POC [facility] [address] [place] [address], [facility] PCLX [facility] POC [address] [place] [address] * (ABNORMAL) Glucose, POCT (02/24/2023 12:59 PM CDT) Glucose, POCT, B 172(H) 70 - 140 mg/dL 02/24/2023 4:42 PM CDT PCLX Site Capillary 02/24/2023 4:42 PM CDT PCLX Last Intake 2-3 hours 02/24/2023 4:42 PM CDT PCLX Blood 02/24/2023 12:5 9 PM CDT 02/24/2023 4:43 PM CDT Unknown Provider LAB POCT ORDERABLES- MANUAL Performing Organization Address [facility] Co de Phone Number POC [facility] [address] [place] [address], [facility] [address]CLX [facility] POC [address] [place] [address] * Glucose, POCT (02/24/2023 8:41 AM CDT) Glucose, POCT, B 123 70 - 140 mg/dL 02/24/2023 9:09 AM CDT PCLX Site Capillary 02/24/2023 9:09 AM CDT PCLX Last Intake > 4 hours 02/24/2023 9:09 AM CDT PCLX Blood 02/24/2023 8:41 AM CDT 02/24/2023 9:09 AM CDT Unknown Provider LAB POCT ORDERABLES- MANUAL Performing Organization Address City/[facility]/ZIP Co de Phone Number POC [facility] [address] [place] [address], [facility] PCLX [facility] [address] [place] [address] * (ABNORMAL) Magnesium (02/24/2023 3:37 AM CDT) Magnesium, S 2.6(H) 1.7 - 2.3 mg/dL 02/24/2023 4:29 AM CDT DTL Blood (Blood, Venous) 02/24/2023 3:37 AM CDT 02/24/2023 4:15 AM CDT Jonny Aguilar M.D. LAB BLOOD ADD-ON Performing Organization Address [facility] Co de Phone Number [facility] [address] [place] [address], [facility] [place] [address] [place] [address] * (ABNORMAL) Renal Function Panel (02/24/2023 3:37 AM CDT) Potassium, S 3.5(L) 3.6 - 5.2 mmol/L 02/24/2023 4:29 AM CDT DTL Sodium, S 136 135 - 145 mmol/L 02/24/2023 4:29 AM CDT DTL Chloride, S 90(L) 98 - 107 mmol/L 02/24/2023 4:29 AM CDT DTL Bicarbonate, S 21(L) 22 - 29 mmol/L 02/24/2023 4:29 AM CDT DTL Anion Gap 25(H) 7 - 15 02/24/2023 4:29 AM CDT DTL BUN (Blood Urea Nitrogen), S 54(H) 6 - 21 mg/dL 02/24/2023 4:29 AM CDT DTL Creatinine 14.66(H) 0.59 - 1.04 mg/dL 02/24/2023 4:29 AM CDT DTL Estimated GFR (eGFR) <15(L) >=60 mL/min/BSA 02/24/2023 4:29 AM CDT DTL Comment: Estimated GFR calculated using the 2020 CKD_EPI creatinine equation. Calcium, Total, S 9.7 8.8 - 10.2 mg/dL 02/24/2023 4:29 AM CDT DTL Glucose, S 163(H) 70 - 140 mg/dL 02/24/2023 4:29 AM CDT DTL Albumin, S 3.6 3.5 - 5.0 g/dL 02/24/2023 4:29 AM CDT DTL Phosphorus (Inorganic), S 6.0(H) 2.5 - 4.5 mg/dL 02/24/2023 4:29 AM CDT DTL Blood (Blood, Venous) 02/24/2023 3:37 AM CDT 02/24/2023 4:15 AM CDT Jonny Aguilar M.D. LAB BLOOD ADD-ON [facility] [address] [place] [address], [facility] [place] 2[facility] [address] [place] [address] * (ABNORMAL) CBC with Differential, Blood (02/24/2023 3:37 AM CDT) Hemoglobin 9.1(L) 11.6 - 15.0 g/dL 02/24/2023 4:07 AM CDT DTL Hematocrit 27.4(L) 35.5 - 44.9 % 02/24/2023 4:07 AM CDT DTL Erythrocytes 2.61(L) 3.92 - 5.13 x10(12)/L 02/24/2023 4:07 AM CDT DTL MCV 105.0(H) 78.2 - 97.9 fL 02/24/2023 4:07 AM CDT DTL RBC Distrib Width 14.6 12.2 - 16.1 % 02/24/2023 4:07 AM CDT DTL Platelet Count 251 157 - 371 x10(9)/L 02/24/2023 4:07 AM CDT DTL Leukocytes 7.9 3.4 - 9.6 x10(9)/L 02/24/2023 4:07 AM CDT DTL Neutrophils 4.90 1.56 - 6.45 x10(9)/L 02/24/2023 4:07 AM CDT DHPM Lymphocytes 2.17 0.95 - 3.07 x10(9)/L 02/24/2023 4:07 AM CDT DTL Monocytes 0.56 0.26 - 0.81 x10(9)/L 02/24/2023 4:07 AM CDT DTL Eosinophils 0.18 0.03 - 0.48 x10(9)/L 02/24/2023 4:07 AM CDT DTL Basophils 0.05 0.01 - 0.08 x10(9)/L 02/24/2023 4:07 AM CDT DTL Blood (Blood, Venous) 02/24/2023 3:37 AM CDT 02/24/2023 3:59 AM CDT Jonny Aguilar M.D. LAB BLOOD ADD-ON [facility] [address] [place] [address], [facility] DTL [facility] [address] [place] [address] DHPM [facility] [address] [place] [address] * (ABNORMAL) Glucose, POCT (02/23/2023 10:19 PM CDT) [facility] Glucose, POCT, B 220(H) 70 - 140 mg/dL 02/23/2023 10:22 PM CDT PCLX Site Capillary 02/23/2023 10:22 PM CDT PCLX Blood 02/23/2023 10:1 9 PM CDT 02/23/2023 10:22 PM CDT Unknown Provider LAB POCT ORDERABLES- MANUAL POC [facility] [address] [place] [address], [facility] PCLX [facility] POC [address] [place] [address] * Glucose, POCT (02/23/2023 6:45 PM CDT) Glucose, POCT, B 120 70 - 140 mg/dL 02/23/2023 6:50 PM CDT PCLX Site Capillary 02/23/2023 6:50 PM CDT PCLX Last Intake <1 hour 02/23/2023 6:50 PM CDT PCLX Blood 02/23/2023 6:45 PM CDT 02/23/2023 6:51 PM CDT Unknown Provider LAB POCT ORDERABLES- MANUAL Performing Organization Address City/[facility] Co de Phone Number POC [facility] [address] [place] [address], [facility] PCLX [facility] POC [address] [place] [address] * (ABNORMAL) Glucose, POCT (02/23/2023 6:12 PM CDT) Glucose, POCT, B 66(L) 70 - 140 mg/dL 02/23/2023 6:50 PM CDT PCLX Site Capillary 02/23/2023 6:50 PM CDT PCLX Last Intake 3-4 hours 02/23/2023 6:50 PM CDT PCLX Blood 02/23/2023 6:12 PM CDT 02/23/2023 6:51 PM CDT Unknown Provider LAB POCT ORDERABLES- MANUAL Performing Organization Address City/[facility] Co de Phone Number POC [facility] [address] [place] [address], [place] PCLX [facility] POC [address] [place] [address] * (ABNORMAL) Glucose, POCT (02/23/2023 2:33 PM CDT) Glucose, POCT, B 229(H) 70 - 140 mg/dL 02/23/2023 2:45 PM CDT PCLX Site Capillary 02/23/2023 2:45 PM CDT PCLX Last Intake 2-3 hours 02/23/2023 2:45 PM CDT PCLX Blood 02/23/2023 2:33 PM CDT 02/23/2023 2:45 PM CDT Unknown Provider LAB POCT ORDERABLES- MANUAL Performing Organization Address [facility] Co de Phone Number POC [facility] [address] [place] [address], [facility] PCLX [facility] POC [address] [place] [address] * Protein, Total, Body Fluid (02/23/2023 2:28 PM CDT) Protein, Total, BF 0.2 See Comment g/dL 02/23/2023 4:20 PM CDT DTL Comment: ----ADDITIONAL INFORMATION---- A pleural fluid total protein to serum total protein ratio >0.5 is most consistent with exudative effusion. A peritoneal fluid total protein > 2.5 g/dL in patients with a high serum ascites albumin gradient can be caused by heart failure. A peritoneal fluid total protein > 1.0 g/dL helps to differentiate secondary from spontaneous bacterial peritonitis in conjunction with other laboratory, imaging, and clinical findings. All other fluids refer to www.[employer].com for further interpretive information. This test has been modified from the hoop flaring machine operator helper's instructions. Its performance characteristics were determined by [facility] in a manner consistent with CLIA requirements. This test has not been cleared or approved by the U.S. Food and Drug Administration. Fluid Type, Protein, Total Fluid, Peritoneal Fluid 02/23/2023 3:37 PM CDT DTL Fluid (Peritoneal Fluid) 02/23/2023 2:28 PM CDT 02/23/2023 3:46 PM CDT Jonny Aguilar M.D. LAB BODY FLUIDS AN D STOOLS ORDERABLES Performing Organization Address City/[facility]/ZIP Co de Phone Number [facility] [address] [place] [address], [facility] DTL [facility] [address] [place] [address] * Albumin, Body Fluid (02/23/2023 2:28 PM CDT) Albumin BF 0.3 See Comment g/dL 02/23/2023 4:20 PM CDT DTL Comment: ----ADDITIONAL INFORMATION---- Peritoneal fluid albumin is used to calculate the serum-ascites albumin gradient (SAAG). Values greater than or equal to 1.1 g/dL suggest portal hypertension. Pleural fluid albumin may be used to calculate a serum-effusion albumin gradient. Values greater than 1.2 g/dL are most consistent with a transudative process. ?? All other fluids refer to [email or web address] for further interpretive information. This test has been modified from the hoop flaring machine operator helper's instructions. Its performance characteristics were determined by [facility] in a manner consistent with CLIA requirements. This test has not been cleared or approved by the U.S. Food and Drug Administration. Fluid Type, Albumin Fluid, Peritoneal Fluid 02/23/2023 3:37 PM CDT DTL Fluid (Peritoneal Fluid) 02/23/2023 2:28 PM CDT 02/23/2023 3:46 PM CDT Jonny Aguilar M.D. LAB BODY FLUIDS [place] [address], [facility] [place] [address] * Bacterial Culture, Aerobic + Susceptibility (02/23/2023 2:28 PM CDT) Bacterial Culture, Aerobic + Susc No growth after 5 days of incubation. 02/28/2023 9:25 AM CDT DTL Dialysate Fluid (Peritoneal Fluid) 02/23/2023 2:28 PM CDT 02/23/2023 3:42 PM CDT Comment:Specimen Source Site : Dialysate Fluid Narrative [facility] - 02/28/2023 9:25 AM CDT Bacterial Culture: Received Bactec aerobic and Bactec anaerobic bottles Previous comment Received Bactec aerobic and Bactec anaerobic bottles was modified at 14:43 on 02/24/2023 Previous comment Received Bactec aerobic bottle was modified at 12:54 on 02/24/2023 Paris Sellers APRN, C.N.P., M.S.N. LAB MICROBIOLOGY - GENERAL ORDERABLES Performing Organization Address [facility] de Phone Number [facility] [address] [place] [address], [facility] DTL [facility] [address] [place] [address] * Cell Count and Differential, Body Fluid (02/23/2023 2:28 PM CDT) Pathologist [facility] Fluid Type Peritoneal Dialysate 02/23/2023 10:47 PM CDT DHPM Gross Appearance Colorless 02/24/20 10:47 PM CDT DHPM Total Nucleated Cells <52 /mcL 02/23/2023 10:47 PM CDT [facility] Comment: ----REFERENCE VALUE---- Synovial: <150 /mcL Peritoneal: <500 /mcL Pleural: <500 /mcL Pericardial: <500 /mcL ----ADDITIONAL INFORMATION---- This test has been modified from the hoop flaring machine operator helper's instructions. Its performance characteristics were determined by [facility] in a manner consistent with CLIA requirements. This test has not been cleared or approved by the U.S. Food and Drug Administration. Diff Comments See Comment 02/23/2023 10:47 PM CDT [facility] Comment:Too few white cells for accurate differential. Fluid (Peritoneal Fluid) 02/23/2023 2:28 PM CDT 02/23/2023 3:47 PM CDT Paris Sellers APRN, C.N.P., M.S.N. LAB BODY FLUIDS AND STOOLS ORDERABLES Performing Organization Address City/[facility]/ZIP Co de Phone Number [facility] [address] [place] [address], [facility] [address] [place] [address] * QuantiFERON-Tb Gold Plus, Blood (02/23/2023 12:45 PM CDT) [facility] QuantiFERON-TB Gold Plus Result Negative Negative 02/24/2023 11:13 AM CDT [facility] Comment: No interferon-gamma response to M. tuberculosis antigens was detected. Latent infection with M. tuberculosis is unlikely. A single negative result does not exclude infection with M. tuberculosis. In patients at high risk for M.tuberculosis infection, a second test should be considered in accordance with the 2017 ATS/IDSA/CDC Clinical Practice Guidelines for Diagnosis of Tuberculosis in Adults and Children [Lewinsohn WEI et. al. Clin. Infect. Dis. 2017;64(2):111-115]. The reference range for the 'TB1 Ag minus Nil Result' and 'TB2 Ag minus Nil Result' is an Interferon-gamma level <0.35 IU/mL. TB1 Ag minus Nil Result 0.03 IU/mL 02/24/2023 11:13 AM CDT [facility] TB2 Ag minus Nil Result 0.07 IU/mL 02/24/2023 11:13 AM CDT [facility] Mitogen minus Nil Result 5.51 IU/mL 02/24/2023 11:13 AM CDT [facility] Nil Result 0.01 IU/mL 02/24/2023 11:13 AM CDT [facility] Blood (Blood, Venous) 02/23/2023 12:45 PM CDT 02/23/2023 4:03 PM CDT [facility] - 02/24/2023 11:13 AM CDT Specimen Information: Specimen ID: [id number] Specimen Type: Blood Specimen Collection Start Date: 02/23/2023 12:45 PM Specimen Received Date: 02/23/2023 ??4:03 PM Specimen ID: [id number] Specimen Type: Blood Specimen Collection Start Date: 02/23/2023 12:45 PM Specimen Received Date: 02/23/2023 ??4:02 PM Specimen ID: [id number] Specimen Type: Blood Specimen Collection Start Date: 02/23/2023 12:45 PM Specimen Received Date: 02/23/2023 ??4:02 PM Specimen ID: [id number] Specimen Type: Blood Specimen Collection Start Date: 02/23/2023 12:45 PM Specimen Received Date: 02/23/2023 ??4:03 PM Parisnicolas Sellers APRN, C.N.P., M.S.N. LAB MICROBIOLOGY - BLOOD ORDERABLES Performing Organization Address [facility]/ZIP Co de Phone Number 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 [address] [place] [address] [facility] [address] [place] [address] * HBs Antibody, Serum (02/23/2023 12:45 PM CDT) HBs Antibody, S Indeterminate 2022 11:41 PM CDT [facility] Comment: Unable to determine if anti-HBs is present at levels consistent with immunity. Patient's immune status should be further assessed by considering other clinical information or repeat testing in 1 to 3 months. ----REFERENCE VALUE---- Unvaccinated: Negative Vaccinated: Positive HBs Antibody, Quantitative, S 6.0 mIU/mL 02/23/2023 11:41 PM CDT [facility] Comment: ----REFERENCE VALUE---- Unvaccinated: <5.0 Vaccinated: >=12.0 Blood (Blood, Venous) 02/23/2023 12:45 PM CDT 02/23/2023 5:27 PM CDT Paris Sellers APRN, C.N.P., M.S.N. LAB MICROBIOLOGY - BLOOD ORDERABLES Performing Organization Address [facility] Co de Phone Number 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 [address] [place] [address] [facility] [address] [place] [address] * Hepatitis B Surface Antigen (02/23/2023 12:45 PM CDT) HBs Antigen, S Negative Negative 02/23/2023 9:21 PM CDT [facility] Blood (Blood, Venous) 02/23/2023 12:45 PM CDT 02/23/2023 5:27 PM CDT Paris Sellers APRN, C.N.P., M.S.N. LAB MICROBIOLOGY - BLOOD ORDERABLES Performing Organization Address City/[facility]/ZIP Co de Phone Number 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 [address] [place] [address] [facility] [address] [place] [address] * Glucose, POCT (02/23/2023 9:41 AM CDT) Glucose, POCT, B 103 70 - 140 mg/dL 02/23/2023 9:46 AM CDT PCLX Site Capillary 02/23/2023 9:46 AM CDT PCLX Last Intake > 4 hours 02/23/2023 9:46 AM CDT PCLX Blood 02/23/2023 9:41 AM CDT 02/23/2023 9:47 AM CDT Unknown Provider LAB POCT ORDERABLES- MANUAL Performing Organization Address City/[facility] Co de Phone Number POC [facility] [address] [place] [address], [facility] PCLX [facility] POC [address] [place] [address] * (ABNORMAL) Renal Function Panel (02/23/2023 3:15 AM CDT) Potassium, S 3.3(L) 3.6 - 5.2 mmol/L 02/23/2023 4:12 AM CDT DTL Sodium, S 135 135 - 145 mmol/L 02/23/2023 4:12 AM CDT DTL Chloride, S 86(L) 98 - 107 mmol/L 02/23/2023 4:12 AM CDT DTL Bicarbonate, S 21(L) 22 - 29 mmol/L 02/23/2023 4:12 AM CDT DTL Anion Gap 28(H) 7 - 15 02/23/2023 4:12 AM CDT DTL BUN (Blood Urea Nitrogen), S 60(H) 6 - 21 mg/dL 02/23/2023 4:12 AM CDT DTL Creatinine 15.32(H) 0.59 - 1.04 mg/dL 02/23/2023 4:12 AM CDT DTL Estimated GFR (eGFR) <15(L) >=60 mL/min/BSA 02/23/2023 4:12 AM CDT DTL Comment: Estimated GFR calculated using the 2020 CKD_EPI creatinine equation. Calcium, Total, S 9.5 8.8 - 10.2 mg/dL 02/23/2023 4:12 AM CDT DTL Glucose, S 197(H) 70 - 140 mg/dL 02/23/2023 4:12 AM CDT DTL Albumin, S 3.7 3.5 - 5.0 g/dL 02/23/2023 4:12 AM CDT DTL Phosphorus (Inorganic), S 7.2(H) 2.5 - 4.5 mg/dL 02/23/2023 5:05 AM CDT DTL Blood (Blood, Venous) 02/23/2023 3:15 AM CDT 02/23/2023 3:55 AM CDT Gregory Garay M.D., Ph.D. LAB BLOOD A DD-ON [facility] [address] [facility] [place] [address] [place] [address] * (ABNORMAL) CBC with Differential, Blood (02/23/2023 3:15 AM CDT) Hemoglobin 9.4(L) 11.6 - 15.0 g/dL 02/23/2023 3:51 AM CDT DTL Hematocrit 28.2(L) 35.5 - 44.9 % 02/23/2023 3:51 AM CDT DTL Erythrocytes 2.66(L) 3.92 - 5.13 x10(12)/L 02/23/2023 3:51 AM CDT DTL MCV 106.0(H) 78.2 - 97.9 fL 02/23/2023 3:51 AM CDT DTL RBC Distrib Width 14.4 12.2 - 16.1 % 02/23/2023 3:51 AM CDT DTL Platelet Count 263 157 - 371 x10(9)/L 02/23/2023 3:51 AM CDT DTL Leukocytes 8.9 3.4 - 9.6 x10(9)/L 02/23/2023 3:51 AM CDT DTL Neutrophils 5.98 1.56 - 6.45 x10(9)/L 02/23/2023 3:51 AM CDT DHPM Lymphocytes 2.01 0.95 - 3.07 x10(9)/L 02/23/2023 3:51 AM CDT DTL Monocytes 0.59 0.26 - 0.81 x10(9)/L 02/23/2023 3:51 AM CDT DTL Eosinophils 0.21 0.03 - 0.48 x10(9)/L 02/23/2023 3:51 AM CDT DTL Basophils 0.06 0.01 - 0.08 x10(9)/L 02/23/2023 3:51 AM CDT DTL Blood (Blood, Venous) 02/23/2023 3:15 AM CDT 02/23/2023 3:40 AM CDT Gregory Garay M.D., Ph.D. LAB BLOOD A DD-ON [facility] [address] [place] [address], [facility] DTL [facility] [address] [place] [address] DHPM [facility] [address] [place] [address] * Morphology Evaluation (Special Smear) (02/23/2023 12:25 AM CDT) Neutrophilic Segs and Bands 67 50 - 75 % 02/23/2023 3:01 AM CDT DHPM Lymphocytes 23 18 - 42 % 02/23/2023 3:01 AM CDT DHPM Monocytes 7 2 - 11 % 02/23/2023 3:01 AM CDT DHPM Eosinophils 2 1 - 3 % 02/23/2023 3:01 AM CDT DHPM Basophils 1 0 - 2 % 02/23/2023 3:01 AM CDT DHPM Manual Absolute Neutrophil Count 6.30 1.56 - 6.45 x10(9)/L 02/23/2023 3:01 AM CDT DHPM Comment: ----ADDITIONAL INFORMATION---- The manual absolute neutrophil count is derived from a manual differential count and therefore is not exactly comparable to the automated absolute neutrophil count. Interpretation See Comment 3:01 AM CDT [facility] Comment: Peripheral blood smear reviewed: no diagnostic abnormalities are seen. Macrocytic red blood cells are present: consider vitamin B12 or folate deficiency, liver disease, drug effect, etc. Reviewed by: Tech 02/23/2023 3:01 AM CDT [facility] Blood 02/23/2023 12:2 5 AM CDT 02/23/2023 12:29 AM CDT Gregory Garay M.D., Ph.D. LAB PATHOLO GY/CYTOLOGY ORDERABLES Performing Organization Address City/[facility] Co de Phone Number [facility] [address] [place] [address], [facility] [address] [place] [address] * (ABNORMAL) NT-Pro B-Type Natriuretic Peptide (BNP) (02/23/2023 12:25 AM CDT) NT-Pro BNP 6356(H) <=540 pg/mL 02/23/2023 12:55 AM CDT [facility] Comment: NT-proBNP values less than 300 pg/mL have a 99% negative predictive value for excluding acute congestive heart failure. A cutoff of 1200 pg/mL for patients with an eGFR<60 yields a diagnostic sensitivity and specificity of 89% and 72% for acute congestive heart failure. A diagnostic NT-proBNP cutoff of 1800 pg/mL has been suggested in adults over 75 years of age in the absence of renal failure. Blood (Blood, Venous) 02/23/2023 12:25 AM CDT 02/23/2023 12:29 AM CDT Gregory Garay M.D., Ph.D. LAB BLOOD A DD-ON Performing Organization Address [facility]/ZIP Co de Phone Number [facility] [address] [place] [address], [facility] [address] [place] [address] * (ABNORMAL) Pernicious Anemia [place] (02/23/2023 12:25 AM CDT) Pathologist [facility] Vitamin B12 Assay, S 935(H) 180 - 914 ng/L 02/23/2023 1:13 PM CDT [facility] Blood (Blood, Venous) 02/23/2023 12:25 AM CDT 02/23/2023 10:29 AM CDT Gregory Garay M.D., Ph.D. LAB BLOOD N ON ADD-ON 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 [address] [place] [address] [facility] [address] [place] [address] * (ABNORMAL) Basic Metabolic Panel (02/23/2023 12:25 AM CDT) Pathologist [facility] Potassium, P 3.2(L) 3.6 - 5.2 mmol/L 02/23/2023 1:19 AM CDT DTL Sodium, P 136 135 - 145 mmol/L 02/23/2023 1:19 AM CDT DTL Chloride, P 88(L) 98 - 107 mmol/L 02/23/2023 1:19 AM CDT DTL Bicarbonate, P 18(L) 22 - 29 mmol/L 02/23/2023 1:19 AM CDT DTL Anion Gap, P 30(H) 7 - 15 02/23/2023 1:19 AM CDT DTL BUN (Blood Urea Nitrogen), P 59(H) 6 - 21 mg/dL 02/23/2023 1:19 AM CDT DTL Creatinine 15.25(H) 0.59 - 1.04 mg/dL 02/23/2023 1:19 AM CDT DTL Estimated GFR (eGFR) <15(L) >=60 mL/min/BSA 02/23/2023 1:19 AM CDT DTL Comment: Estimated GFR calculated using the 2020 CKD_EPI creatinine equation. Calcium, Total, P 10.1 8.8 - 10.2 mg/dL 02/23/2023 1:19 AM CDT DTL Glucose, P 111 70 - 140 mg/dL 02/23/2023 1:19 AM CDT DTL Blood (Blood, Venous) 02/23/2023 12:25 AM CDT 02/23/2023 12:44 AM CDT Gregory Garay M.D., Ph.D. LAB BLOOD A DD-ON [facility] [address] [place] [address], [facility] DTL [facility] [address] [place] [address] * (ABNORMAL) CBC with Differential, Blood (02/23/2023 12:25 AM CDT) Hemoglobin 9.7(L) 11.6 - 15.0 g/dL 02/23/2023 12:31 AM CDT [facility] Hematocrit 29.5(L) 35.5 - 44.9 % 02/23/2023 12:31 AM CDT [facility] Erythrocytes 2.81(L) 3.92 - 5.13 x10(12)/L 02/23/2023 12:31 AM CDT [facility] MCV 105.0(H) 78.2 - 97.9 fL 02/23/2023 12:31 AM CDT [facility] RBC Distrib Width 14.4 12.2 - 16.1 % 02/23/2023 12:31 AM CDT [facility] Platelet Count 258 157 - 371 x10(9)/L 02/23/2023 12:31 AM CDT [facility] Leukocytes 9.4 3.4 - 9.6 x10(9)/L 02/23/2023 12:31 AM CDT [facility] Neutrophils 6.24 1.56 - 6.45 x10(9)/L 02/23/2023 12:31 AM CDT DH[facility] Lymphocytes 2.20 0.95 - 3.07 x10(9)/L 02/23/2023 12:31 AM CDT [facility] Monocytes 0.68 0.26 - 0.81 x10(9)/L 02/23/2023 12:31 AM CDT [facility] Eosinophils 0.20 0.03 - 0.48 x10(9)/L 02/23/2023 12:31 AM CDT [facility] Basophils 0.06 0.01 - 0.08 x10(9)/L 02/23/2023 12:31 AM CDT [facility] Blood (Blood, Venous) 02/23/2023 12:25 AM CDT 02/23/2023 12:29 AM CDT Gregory Garay M.D., Ph.D. LAB BLOOD A DD-ON Performing Organization Address [facility] Co de Phone Number [facility] [address] [place] [address], [facility] STMA [facility] [address] [place] [address] DHPM [facility] [address] [place] [address] * Bartonella PCR, Blood (02/23/2023 12:24 AM CDT) Pathologist [facility] Specimen Source BLOOD 11:49 AM CDT DTL Bartonella PCR Negative Not Applicable 02/24/2023 11:49 AM CDT DTL Comment: ----ADDITIONAL INFORMATION---- This test was developed and its performance characteristics determined by [facility] in a manner consistent with CLIA requirements. This test has not been cleared or approved by the U.S. Food and Drug Administration. Blood (Blood, Peripheral Draw) 02/23/2023 12:24 AM CDT 02/23/2023 2:52 AM CDT Tommie Frederick M.D. LAB MICROBIOLOGY - BLOOD ORDERABLES Performing Organization Address [facility] Co de Phone Number [facility] [address] [place] [address], [facility] DTL 200 [facility] [address] [place] [address] * [place]ella Ab Panel, IgG and IgM (02/23/2023 12:24 AM CDT) [facility] Ayo Henselae IgG <1:128 <1:128 titer 02/23/2023 2:51 PM CDT [facility] Ayo Henselae IgM <1:20 <1:20 titer 02/23/2023 2:51 PM CDT [facility] Ayo Fonseca IgG <1:128 <1:128 titer 02/23/2023 2:51 PM CDT [facility] Ayo Fonseca IgM <1:20 <1:20 titer 02/23/2023 2:51 PM CDT [facility] Comment: ----ADDITIONAL INFORMATION---- This test was developed and its performance characteristics determined by [facility] in a manner consistent with CLIA requirements. This test has not been cleared or approved by the U.S. Food and Drug Administration. Blood (Blood, Venous) 02/23/2023 12:24 AM CDT 02/23/2023 8:21 AM CDT Tommie Frederick M.D. LAB MICROBIOLOGY - BLOOD ORDERABLES Performing Organization Address [facility] Co de Phone Number 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 [address] [place] [address] [facility] [address] [place] [address] [place] [address] * (ABNORMAL) Phosphorus Inorganic (02/23/2023 12:24 AM CDT) Phosphorus (Inorganic), S 7.5(H) 2.5 - 4.5 mg/dL 02/23/2023 2:40 AM CDT DTL Blood (Blood, Venous) 02/23/2023 12:24 AM CDT 02/23/2023 1:01 AM CDT Tommie Frederick M.D. LAB BLOOD ADD-ON Performing Organization Address City/[facility]/ZIP Co de Phone Number [facility] [address] [place] [address], [facility] DTL [facility] [address] [place] [address] * Cortisol (02/23/2023 12:24 AM CDT) Cortisol, Random, S 9.0 mcg/dL 02/23/2023 1:39 AM CDT DTL Comment: ----REFERENCE VALUE---- AM (0713-1231): 4.8-20 PM (0455-5601): 2.5-12 Blood (Blood, Venous) 02/23/2023 12:24 AM CDT 02/23/2023 1:01 AM CDT Gregory Garay M.D., Ph.D. LAB BLOOD A DD-ON Performing Organization Address [facility] Co de Phone Number [facility] [address] [place] [address], [facility] [address] [place] [address] * (ABNORMAL) Sedimentation Rate (02/23/2023 12:24 AM CDT) Sedimentation Rate, B 97(H) 3 - 28 mm/h 02/23/2023 2:38 AM CDT DTL Blood (Blood, Venous) 02/23/2023 12:24 AM CDT 02/23/2023 12:47 AM CDT Gregory Garay M.D., Ph.D. LAB BLOOD A DD-ON Performing Organization Address [facility] Co de Phone Number [facility] [address] [place] [address], [facility] [address] [place] [address] * Thyroid Function [place] (02/23/2023 12:24 AM CDT) TSH, Sensitive 3.3 0.3 - 4.2 mIU/L 02/23/2023 1:39 AM CDT DTL Blood (Blood, Venous) 02/23/2023 12:24 AM CDT 02/23/2023 1:01 AM CDT Gregory Garay M.D., Ph.D. LAB BLOOD A DD-ON Performing Organization Address City/[facility]/ZIP Co de Phone Number [facility] [address] [place] [address] * Folate (02/23/2023 12:24 AM CDT) Folate, S >20.0 >=4.0 mcg/L 02/23/2023 7: 48 AM CDT DTL Blood (Blood, Venous) 02/23/2023 12:24 AM CDT 02/23/2023 1:01 AM CDT Gregory Garay M.D., Ph.D. LAB BLOOD A DD-ON Performing Organization Address City/[facility]/ZIP Co de Phone Number [facility] [address] [place] [address] * (ABNORMAL) Beta-Hydroxybutyrate (02/23/2023 12:24 AM CDT) [facility] Beta-Hydroxybut yrate, S 0.6(H) <0.4 mmol/L 02/23/2023 1:39 AM CDT DT Blood (Blood, Venous) 02/23/2023 12:24 AM CDT 02/23/2023 1:01 AM CDT Gregory Garay M.D., Ph.D. LAB BLOOD A DD-ON [facility] [address] [place] [address] * (ABNORMAL) Procalcitonin (02/23/2023 12:24 AM CDT) Pathologist [facility] Procalcitonin, S 0.53(H) <=0.08 ng/mL 02/23/2023 1:39 AM CDT DTL Blood (Blood, Venous) 02/23/2023 12:24 AM CDT 02/23/2023 1:01 AM CDT Gregory Garay M.D., Ph.D. LAB BLOOD A DD-ON Performing Organization Address [facility] Co de Phone Number [facility] [address] [place] [address], [facility] DTL [facility] [address] [place] [address] * Patient Status (02/23/2023 12:23 AM CDT) FIO2 0.21 0.21=AIR 02/23/2023 12:29 AM CDT ST[facility] Spont. breaths/min 12 02/23/2023 12:29 AM CDT [facility] Blood 02/23/2023 12:2 3 AM CDT 02/23/2023 12:29 AM CDT Tommie Frederick M.D. LAB BLOOD NON ADD-O N Performing Organization Address [facility] Co de Phone Number [facility] [address] [place] [address], [facility] STMA [facility] [address] [place] [address] * Blood Gas without Coox, Venous (02/23/2023 12:23 AM CDT) pO2, Venous, B 29 Not applicable mm Hg 02/23/2023 12:37 AM CDT [facility] pCO2, Venous, B 44 41 - 51 mm Hg 02/23/2023 12:37 AM CDT [facility] pH, Venous, B 7.33 7.32 - 7.43 pH 023 12:37 AM CDT [facility] Base Excess, Venous, B -2 Not applicable mmol/L 02/23/2023 12:37 AM CDT [facility] HCO3, Venous, B 24 Not applicable mmol/L 02/23/2023 12:37 AM CDT [facility] Sample Site, Venous, B Venipunct 02/23/2023 12:29 AM CDT [facility] Blood (Blood, Venous) 02/23/2023 12:23 AM CDT 02/23/2023 12:29 AM CDT Tommie Frederick M.D. LAB BLOOD NON ADD-O N [facility] [address] [place] [address], [place] [facility] [address] [place] [address] documented in this encounter Visit Diagnoses Diagnosis Weakness General- Primary Weakness General Decline Functional Status [R53.81 (ICD-10-CM)] Anemia Of Chronic Renal Failure Apnea Sleep Obstructive Cancer Breast Personal History Dialysis Peritoneal Status (HCC) Diabetes Mellitus Type 2 With Diabetic Nephropathy (HCC) Hyperlipidemia Restless Leg Syndrome Hyperparathyroidism Renal Secondary (HCC) Hypertension And Chronic Kidney Disease Stage 5 (HCC) Chronic Kidney Disease Stage 5 Glomerular 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) documented in this encounter Administered Medications Inactive Administered Medications - up to 3 most recent administrations Medication Order MAR Action Action Date Dose Rate Site allopurinoL tablet 100 mg (ZYLOPRIM) 100 mg, oral, Daily, First dose on Thu02/23/23 at 0900 Given 03/01/2023 7:39 AM CDT 100 mg Given 02/28/2023 11:31 AM CDT 100 mg Given 02/27/2023 8:39 AM CDT 100 mg artificial tears (hypromellose) 0.3 % ophthalmic gel 1 drop (GENTEAL SEVERE) 1 drop, both eyes, 3 times daily PRN, dry eyes, dry eyes, Starting on Thu02/27/23 at 2004 Given 02/28/2023 5:56 AM CDT [address] tablet 81 mg 81 mg, oral, Daily, First dose on Thu02/23/23 at 0900, Swallow whole. Do NOT crush, chew, or split tablet. Given 03/01/2023 7:39 AM CDT 81 mg Given 02/28/2023 11:31 AM CDT 81 mg Given 02/27/2023 8:39 AM CDT 81 mg bisacodyL suppository 10 mg (DULCOLAX) 10 mg, rectal, Daily, First dose on Thu02/23/23 at 0900, Ordered sequence of administration: polyethylene glycol, then bisacodyl until BM achieved. calcium acetate(phosphat bind) capsule 1,334 mg (PHOSLO) 1,334 mg, oral, 3 times daily with meals, First dose (after last modification) on Thu02/23/23 at 1200, 667 mg calcium acetate contains 169 mg of elemental calcium Do not give if patient is NPO Given 02/26/2023 12:06 PM CDT 1,334 mg Given 02/26/2023 7:25 AM CDT 1,334 mg Given 02/25/2023 5:51 PM CDT 1,334 mg calcium acetate(phosphat bind) capsule 667 mg (PHOSLO) 667 mg, oral, 3 times daily with meals, First dose (after last modification) on Ashley 02/26/23 at 1700, 667 mg calcium acetate contains 169 mg of elemental calcium Do not give if patient is NPO Given 03/01/2023 12:23 PM CDT 667 mg Given 03/01/2023 7:39 AM CDT 667 mg Given 02/28/2023 5:18 PM CDT 667 mg calcium carbonate chewable tablet 400 mg of calcium (TUMS) 400 mg of calcium, oral, Every 2 hour PRN, heartburn, indigestion, Starting on Thu02/23/23 at 0009, Doses listed are in mg of elemental calcium. Take with food. 500 mg calcium carbonate contains 200 mg of elemental calcium. gentamicin 0.1 % cream 1 Application (GARAMYCIN) 1 Application, topical, Daily, First dose on Thu02/25/23 at 2000, Daily following site care of PD catheter exit site. To be done by bedside nursing staff. Given 02/28/2023 8:21 PM CDT 1 Application Given 02/27/2023 10:12 PM CDT 1 Application Given 02/26/2023 8:17 PM CDT 1 Application heparin (porcine) injection 5,000 Units 5,000 Units, subcutaneous, Every 8 hours scheduled, First dose on Thu02/23/23 at 0600, For 6 doses Given 02/24/2023 9:25 PM CDT 5,000 Units Right Lower Abdomen Given 02/24/2023 1:22 PM CDT 5,000 Units L eft Lower Abdomen Given 02/24/2023 6:22 AM CDT 5,000 Units R ight Lower Abdomen heparin (porcine) injection 5,000 Units 5,000 Units, subcutaneous, Every 8 hours scheduled, First dose (after last reorder) on Thu02/25/23 at 2200 Given 03/01/2023 5:44 AM CDT 5,000 Units Left Upper Arm (Back ) Given 02/28/2023 8:21 PM CDT 5,000 Units L eft Upper Arm (Back) Given 02/28/2023 5:56 AM CDT 5,000 Units R ight Upper Arm (Back) insulin aspart U-100 injection 0-13 Units (NovoLOG FlexPen) 0-13 Units, subcutaneous, 3 times daily, First dose on Thu02/23/23 at 0800, Insulin Scale: Moderate Correction Scale, 140 - 179: 2 units, 180 - 219: 4 units, 220 - 259: 6 units, 260 - 299: 8 units, 300 - 339: 10 units, 340 - 379: 12 units, 380 - 399: 13 units, Greater than 399: Call service writing Insulin orders Given 02/28/2023 11:21 AM CDT 4 Units Left Lower Abdomen Given 02/27/2023 4:51 PM CDT 2 Units Ri ght Upper Abdomen Given 02/27/2023 12:42 PM CDT 6 Units R ight Lower Abdomen insulin glargine injection 6 Units 6 Units, subcutaneous, Daily at bedtime, First dose on Thu02/23/23 at 2100 Given 02/28/2023 8:23 PM CDT 6 Units Left Upper Arm (Back ) Given 02/27/2023 8:05 PM CDT 6 Units Le ft Upper Arm (Back) Given 02/26/2023 8:16 PM CDT 6 Units Ri ght Lower Abdomen lidocaine 5 % ointment 1 Application (XYLOCAINE) 1 Application, topical, 3 times daily PRN, mild pain or score 1-3 of 10, Starting on Thu02/24/23 at 0001, MAX of 20 g of ointment/day Given 03/01/2023 7:39 AM CDT 1 Application Given 02/28/2023 8:21 PM CDT 1 Application Given 02/27/2023 10:12 PM CDT 1 Application lidocaine-sodium bicarbonate (buffered) 0.9%-8.4% injection infiltration, As needed, Starting on Thu02/25/23 at 0830, Intra-Op Given 02/25/2023 8:30 AM CDT 18 mL magnesium sulfate in D5W IVPB 1 g 1 g, intravenous, at 100 mL/hr, Administer over 60 Minutes, Once, On Thu03/01/23 at 0630, For 1 dose, Over 1 hours. New Bag 03/01/2023 8:12 AM CDT 1 g 100 m L/hr multivitamin renal failure 100-1 mg 1 tablet (DIALYVITE) 1 tablet, oral, Daily, First dose on Thu02/23/23 at 0900, give after dialysis on dialysis days Given 02/26/2023 12:06 PM CDT 1 tablet Given 02/25/2023 11:37 AM CDT 1 tablet Given 02/24/2023 10:10 AM CDT 1 tablet multivitamin renal failure 100-1 mg 1 tablet (DIALYVITE) 1 tablet, oral, Daily with dinner, First dose (after last modification) on Thu02/27/23 at 1700, give after dialysis on dialysis days Given 02/28/2023 5:18 PM CDT 1 tablet PD 1.5 % dextrose Low Ca 2.5 mEq/L- Mg 0.5 mEq/L 6,000 mL dialysis solution intraperitoneal, Once, On Thu02/23/23 at 1800, For 1 dose, Scheduling/ADT, Refer to: Continuous Cycling Peritoneal Dialysis (CCPD) order for therapy details Given 02/23/2023 7:33 PM CDT PD 1.5 % dextrose Low Ca 2.5 mEq/L- Mg 0.5 mEq/L 6,000 mL dialysis solution intraperitoneal, Once, On Thu02/23/23 at 1800, For 1 dose, Scheduling/ADT, Refer to: Continuous Cycling Peritoneal Dialysis (CCPD) order for therapy details Given 02/23/2023 7:33 PM CDT PD 1.5 % dextrose Low Ca 2.5 mEq/L- Mg 0.5 mEq/L 6,000 mL dialysis solution intraperitoneal, Once, On Thu02/24/23 at 1800, For 1 dose, Scheduling/ADT, Refer to: Continuous Cycling Peritoneal Dialysis (CCPD) order for therapy details Given 02/24/2023 8:27 PM CDT PD 1.5 % dextrose Low Ca 2.5 mEq/L- Mg 0.5 mEq/L in 2,500 mL dialysis solution intraperitoneal, Once, On Thu02/23/23 at 0945, For 1 dose, Scheduling/ADT, Exchange volume (L): Other (specify), Exchange volume (L): 1 L dwell for 1 hour and drain for cultures. Given 02/23/2023 12:35 PM CDT 1,000 mL PD 2.5 % dextrose Low Ca 2.5 mEq/L- Mg 0.5 mEq/L 6,000 mL dialysis solution intraperitoneal, Once, On Thu02/23/23 at 1800, For 1 dose, Scheduling/ADT, Refer to: Continuous Cycling Peritoneal Dialysis (CCPD) order for therapy details Given 02/23/2023 7:33 PM CDT PD 2.5 % dextrose Low Ca 2.5 mEq/L- Mg 0.5 mEq/L 6,000 mL dialysis solution intraperitoneal, Once, On Thu02/24/23 at 1800, For 1 dose, Scheduling/ADT, Refer to: Continuous Cycling Peritoneal Dialysis (CCPD) order for therapy details Given 02/24/2023 8:28 PM CDT PD 2.5 % dextrose Low Ca 2.5 mEq/L- Mg 0.5 mEq/L 6,000 mL dialysis solution intraperitoneal, Once, On Thu02/24/23 at 1800, For 1 dose, Scheduling/ADT, Refer to: Continuous Cycling Peritoneal Dialysis (CCPD) order for therapy details Given 02/24/2023 8:26 PM CDT polyethylene glycol powder packet 17 g (MIRALAX) 17 g, oral, 2 times daily, First dose on Thu02/23/23 at 0900, Ordered sequence of administration: polyethylene glycol, then bisacodyl until BM achieved. Avoid mixing with starch-based thickened liquids. Given 02/23/2023 9:34 AM CDT 17 g potassium chloride ER tablet 20 mEq (KLORCON/K-TAB) 20 mEq, oral, Once, On Thu02/23/23 at 0830, For 1 dose, For K 3-3.4 mEq/L - give total of 20 mEq Swallow whole. Do NOT crush, chew, or split tablet., Monitor the following for replacement: Potassium, Replace Potassium per: Standard Schedule Given 02/23/2023 9:34 AM CDT 20 mEq potassium chloride ER tablet 20 mEq (KLORCON/K-TAB) 20 mEq, oral, Once, On Thu02/25/23 at 0730, For 1 dose, For K 3-3.4 mEq/L - give total of 20 mEq Swallow whole. Do NOT crush, chew, or split tablet., Monitor the following for replacement: Potassium, Replace Potassium per: Standard Schedule Given 02/25/2023 11:37 AM CDT 20 mEq pramipexole tablet 0.125 mg (MIRAPEX) 0.125 mg, oral, Daily at bedtime, First dose on Thu02/23/23 at 2100 Given 02/28/2023 8:20 PM CDT 0.125 mg Given 02/27/2023 8:05 PM CDT 0.125 mg Given 02/26/2023 8:17 PM CDT 0.125 mg pravastatin tablet 40 mg (PRAVACHOL) 40 mg, oral, Daily at bedtime, First dose on Thu02/23/23 at 2100 Given 02/28/2023 8:20 PM CDT 40 mg Given 02/27/2023 8:04 PM CDT 40 mg Given 02/26/2023 8:17 PM CDT 40 mg remimazolam injection 1.25 mg (BYFAVO) 1.25 mg, intravenous, Every 2 min PRN, sedation, If RASS greater than -3, give additional dose(s) of 1.25 mg IV every 2 minute for a maximum of 10 mg., Starting on Thu02/25/23 at 0724, For 3 hours, Intraprocedure (RAD), Administer over 15 seconds. Do not give if respiratory rate is less than 8 breaths/minute. incompatible with Lactated Ringers, flush before and after each dose with Normal Saline Reconstitute with 8.2 mL NS to a final concentration of 2.5 mg/mL., Restriction Criteria (Pharmacy will review and approve if criteria met): Use in procedural areas, operating rooms, and during transport within the operating room areas Given 02/25/2023 8:28 AM CDT 1.25 mg remimazolam injection 2.5 mg (BYFAVO) 2.5 mg, intravenous, Once, On Thu02/25/23 at 0745, For 1 dose, Intraprocedure (RAD), Administer over 1 minute, incompatible with Lactated Ringers, flush before and after each dose with Normal Saline Reconstitute with 8.2 mL NS to a final concentration of 2.5 mg/mL., Restriction Criteria (Pharmacy will review and approve if criteria met): Use in procedural areas, operating rooms, and during transport within the operating room areas Given 02/25/2023 8:22 AM CDT 2.5 mg sennosides-docusate sodium 8.6-50 mg per tablet 2 tablet (SENOKOT-S) 2 tablet, oral, 2 times daily, First dose on 02/23/23 at 0900, Do not give if patient has diarrhea. Given 02/26/2023 12:05 PM CDT 2 tablets Given 02/23/2023 9:34 AM CDT 2 tablets sodium chloride 0.9 % flush 1-250 mL 1-250 mL, intravenous, As needed, line care, For priming and rinse back post dialysis, Starting on 02/25/23 at 0849, Dialysis, Dialysis order only. Given 02/25/2023 9:03 AM CDT 250 mL sodium chloride 0.9 % flush 1-250 mL 1-250 mL, intravenous, As needed, line care, For priming and rinse back post dialysis, Starting on Ashley 02/26/23 at 0748, Dialysis, Dialysis order only. Given 02/26/2023 7:58 AM CDT 250 mL sodium chloride 0.9 % flush 1-250 mL 1-250 mL, intravenous, As needed, line care, For priming and rinse back post dialysis, Starting on 02/28/23 at 0739, Dialysis, Dialysis order only. Given 02/28/2023 7:54 AM CDT 250 mL sodium chloride 0.9 % injection 10-60 mL 10-60 mL, intravenous, As needed, line care, To maintain line patency, Starting on 02/28/23 at 0739, Dialysis Given 02/28/2023 7:55 AM CDT 32 mL sodium citrate 4 % injection 3 mL 3 mL, intra-catheter, As needed, line care, Starting on 02/28/23 at 1006 Given 02/28/2023 10:53 AM CDT 3 mL sodium citrate 4 % injection 3 mL 3 mL, intra-catheter, As needed, line care, Starting on 02/28/23 at 1006 Given 02/28/2023 10:53 AM CDT 3 mL sodium citrate 4 % injection As needed, Starting on 02/25/23 at 0833, Intra-Op Given 02/25/2023 8:33 AM CDT 6 mL torsemide tablet 7.5 mg (DEMADEX) 7.5 mg, oral, 2 times daily with meals, First dose on Thu02/24/23 at 1200 Given 02/27/2023 4:48 PM CDT 7.5 mg Given 02/26/2023 5:52 PM CDT 7.5 mg Given 02/26/2023 7:25 AM CDT 7.5 mg documented in this encounter Active and Recently Administered Medications Times are shown in CDT. Scheduled Medication Order 02/27/2023 02/28/2023 03/01/2023 allopurinoL tablet 100 mg (ZYLOPRIM) 100 mg, oral, Daily, First dose on Thu02/23/23 at 0900 0839 (Given - Provider: Lori Myers R.N.) 1131 (Given - Provider: Jelly Vera R.N.) 0739 (Given - Provider: Jelly Vera R.N.) amLODIPine tablet 5 mg (NORVASC) 5 mg, oral, Daily, First dose on Thu02/23/23 at 0900, On hold since Thu02/23/2023 at 1319 until manually unheld 0900 (Dose Auto Held - Provider: Jonny Aguilar M.D.) 0900 (Not Given - Provider: Jelly Vera R.N. - Reason: See Provider Order - Comment: held) 0900 (Not Given - Provider: Jelly Vera R.N. - Reason: See Provider Order - Comment: dose held per provider)1554 (Unheld by provider - Provider: Discharge Provider, Automatic) aspirin DR tablet 81 mg 81 mg, oral, Daily, First dose on Thu02/23/23 at 0900, Swallow whole. Do NOT crush, chew, or split tablet. 0839 (Given - Provider: Lori Myers R.N.) 1131 (Given - Provider: Jelly Vera R.N.) 0739 (Given - Provider: Jelly Vera R.N.) bisacodyL suppository 10 mg (DULCOLAX) 10 mg, rectal, Daily, First dose on Thu02/23/23 at 0900, Ordered sequence of administration: polyethylene glycol, then bisacodyl until BM achieved. 0839 (Not Given - Provider: Lori Myers R.N. - Reason: Patient/family refused) 0824 (Not Given - Provider: Jelly Vera R.N. - Reason: Patient/family refused) 0740 (Not Given - Provider: Jelly Vera R.N. - Reason: Patient/family refused) calcium acetate(phosphat bind) capsule 667 mg (PHOSLO) 667 mg, oral, 3 times daily with meals, First dose (after last modification) on Ashley 02/26/23 at 1700, 667 mg calcium acetate contains 169 mg of elemental calcium Do not give if patient is NPO 0838 (Given - Provider: Lori Myers R.N.)1238 (Given - Provider: Lori Myers R.N.)1649 (Given - Provider: Jelly Vera R.N.) 0556 (Given - Provider: Katey Maxwell R.N.)1135 (Given - Provider: Jelly Vera R.N.)1718 (Given - Provider: Jelly Vera R.N.) 0739 (Given - Provider: Jelly Vera R.N.)1223 (Given - Provider: Jelly Vera R.N.) gentamicin 0.1 % cream 1 Application (GARAMYCIN) 1 Application, topical, Daily, First dose on Thu02/25/23 at 2000, Daily following site care of PD catheter exit site. To be done by bedside nursing staff. 2211 (Given - Provider: Katey Maxwell R.N.) 2020 (Given - Provider: Katey Maxwell R.N.) heparin (porcine) injection 5,000 Units 5,000 Units, subcutaneous, Every 8 hours scheduled, First dose (after last reorder) on Thu02/25/23 at 2200 0529 (Given - Provider: Josefina Mercado RLeidaNLeida)1334 (Given - Provider: Lori Myers R.N.)2008 (Given - Provider: Katey Maxwell R.N.) 0556 (Given - Provider: Katey Maxwell R.N.)1250 (Not Given - Provider: Jelly Vera R.N. - Reason: Patient/family refused - Comment: declines afternoon dose, will do her evening dose)2020 (Given - Provider: Katey Maxwell R.N.) 0544 (Given - Provider: Katey Maxwell R.N.)1326 (Not Given - Provider: Jelly Vera R.N. - Reason: Patient/family refused) insulin aspart U-100 injection 0-13 Units (NovoLOG FlexPen) 0-13 Units, subcutaneous, 3 times daily, First dose on Thu02/23/23 at 0800, Insulin Scale: Moderate Correction Scale, 140 - 179: 2 units, 180 - 219: 4 units, 220 - 259: 6 units, 260 - 299: 8 units, 300 - 339: 10 units, 340 - 379: 12 units, 380 - 399: 13 units, Greater than 399: Call service writing Insulin orders 0840 (Not Given - Provider: Lori Myers R.N. - Reason: Order parameters not met)1242 (Given - Provider: Lori Myers R.N. - Comment: 254bg)1651 (Given - Provider: Jelly Vera R.N.) 0607 (Not Given - Provider: Katey Maxwell R.N. - Reason: Order parameters not met)1121 (Given - Provider: Jelly Vera R.N.)1652 (Not Given - Provider: Jelly Vera R.N. - Reason: Order parameters not met) 0743 (Not Given - Provider: Jelly Vera R.N. - Reason: Order parameters not met)1224 (Not Given - Provider: Jelly Vera R.N. - Reason: Patient/family refused) insulin glargine injection 6 Units 6 Units, subcutaneous, Daily at bedtime, First dose on Thu02/23/23 at 2100 2004 (Given - Provider: Katey Maxwell R.N.) 2022 (Given - Provider: Katey Maxwell R.N.) losartan tablet 50 mg (COZAAR) 50 mg, oral, Daily, First dose on Thu02/23/23 at 0900, On hold since Thu02/23/2023 at 1319 until manually unheld 0900 (Dose Auto Held - Provider: Jonny Aguilar M.D.) 0900 (Not Given - Provider: Jelly Vera R.N. - Reason: See Provider Order - Comment: dose held) 0900 (Not Given - Provider: Jelly Vera R.N. - Reason: See Provider Order - Comment: dose held per provider order)1554 (Unheld by provider - Provider: Discharge Provider, Automatic) magnesium sulfate in D5W IVPB 1 g (COMPLETED) 1 g, intravenous, at 100 mL/hr, Administer over 60 Minutes, Once, On Thu03/01/23 at 0630, For 1 dose, Over 1 hours. 0812 (New Bag - Provider: Jelly Vera R.N.) multivitamin renal failure 100-1 mg 1 tablet (DIALYVITE) 1 tablet, oral, Daily with dinner, First dose (after last modification) on Thu02/27/23 at 1700, give after dialysis on dialysis days 1648 (Not Given - Provider: Jelly Vera R.N. - Reason: Other - Comment: no dialysis) 1718 (Given - Provider: Jelly Vera R.N.) polyethylene glycol powder packet 17 g (MIRALAX) 17 g, oral, 2 times daily, First dose on Thu02/23/23 at 0900, Ordered sequence of administration: polyethylene glycol, then bisacodyl until BM achieved. Avoid mixing with starch-based thickened liquids. 0838 (Not Given - Provider: Lori Myers R.N. - Reason: Patient/family refused)2003 (Not Given - Provider: Katey Maxwell R.N. - Reason: Patient/family refused) 0825 (Not Given - Provider: Jelly Vera R.N. - Reason: Patient/family refused)2008 (Not Given - Provider: Katey Maxwell R.N. - Reason: Patient/family refused) 08 (Not Given - Provider: Jelly Vera R.N. - Reason: Patient/family refused) pramipexole tablet 0.125 mg (MIRAPEX) 0.125 mg, oral, Daily at bedtime, First dose on Thu02/23/23 at 2100 2004 (Given - Provider: Katey Maxwell R.N.) 2019 (Given - Provider: Katey Maxwell R.N.) pravastatin tablet 40 mg (PRAVACHOL) 40 mg, oral, Daily at bedtime, First dose on Thu02/23/23 at 2100 2003 (Given - Provider: Katey Maxwell R.N.) 2019 (Given - Provider: Katey Maxwell R.N.) sennosides-docusate sodium 8.6-50 mg per tablet 2 tablet (SENOKOT-S) 2 tablet, oral, 2 times daily, First dose on Thu02/23/23 at 0900, Do not give if patient has diarrhea. 0839 (Not Given - Provider: Lori Myers R.N. - Reason: Contraindicated)2003 (Not Given - Provider: Katey Maxwell R.N. - Reason: Patient/family refused) 08 (Not Given - Provider: Jelly Vera R.N. - Reason: Patient/family refused)2008 (Not Given - Provider: Katey Maxwell R.N. - Reason: Patient/family refused) 0831 (Not Given - Provider: Jelly Vera R.N. - Reason: Patient/family refused) torsemide tablet 7.5 mg (DEMADEX) (CANCELED) 7.5 mg, oral, 2 times daily with meals, First dose on Thu02/24/23 at 1200 1010 (Not Given - Provider: Lori Myers R.N. - Reason: Medication not available)1648 (Given - Provider: Jelly Vera R.N.) PRN Medication Order 02/27/2023 02/28/2023 03/01/2023 artificial tears (hypromellose) 0.3 % ophthalmic gel 1 drop (GENTEAL SEVERE) 1 drop, both eyes, 3 times daily PRN, dry eyes, dry eyes, Starting on Thu02/27/23 at 2004 0556 (Given - Provider: Katey Maxwell R.N.) calcium carbonate chewable tablet 400 mg of calcium (TUMS) 400 mg of calcium, oral, Every 2 hour PRN, heartburn, indigestion, Starting on 02/23/23 at 0009, Doses listed are in mg of elemental calcium. Take with food. 500 mg calcium carbonate contains 200 mg of elemental calcium. lidocaine 5 % ointment 1 Application (XYLOCAINE) 1 Application, topical, 3 times daily PRN, mild pain or score 1-3 of 10, Starting on Thu02/24/23 at 0001, MAX of 20 g of ointment/day 0234 (Given - Provider: Josefina Mercado R.N.)1651 (Given - Provider: Jelly Vera R.N.)2212 (Given - Provider: Katey Maxwell R.N.) 202 (Given - Provider: Katey Maxwell R.N.) 0739 (Given - Provider: Jelly Vera R.N.) sodium chloride 0.9 % flush 1-250 mL (CANCELED) 1-250 mL, intravenous, As needed, line care, For priming and rinse back post dialysis, Starting on 02/28/23 at 0739, Dialysis, Dialysis order only. 0754 (Given - Provider: Shreya Abrams R.N.) sodium chloride 0.9 % injection 10-60 mL (CANCELED) 10-60 mL, intravenous, As needed, line care, To maintain line patency, Starting on 02/28/23 at 0739, Dialysis 0755 (Given - Provider: Shreya Abrams R.N.) sodium citrate 4 % injection 3 mL 3 mL, intra-catheter, As needed, line care, Starting on 02/28/23 at 1006 1053 (Given - Provider: Shreya Abrams R.N.) sodium citrate 4 % injection 3 mL 3 mL, intra-catheter, As needed, line care, Starting on 02/28/23 at 1006 1053 (Given - Provider: Shreya Abrams R.N.) documented in this encounter Additional Health Concerns Assessment Noted Time PHQ-9 Depression Total Score: 0 02/24/20 1:03 PM CDT documented as of this encounter Care Teams Gas Regulator Repairer Helper Relationship Specialty Start Date End Date Allyn Alfredo M.D. [id number] [phone] PCP - General Family Medicine 04/05/21 documented as of this encounter
--- OUTSIDE RECORDS SUMMARY | 2023-06-24 18:14 | XMS_ITS | Encounter Summary ---
Author Name Unknown Organization [facility] Address [address] [place] [address] Care Team Providers Care Caretaker Name Role Phone Allyn Alfredo M.D. Primary Care Pro vider Encounter Details Date Type Department Care Team (Late st Contact Info) Description 02/24/2023 1:45 PM CDT Ancillary Procedure Department of Nursing Social History Tobacco Use Types Packs/Day Years [...] often do you attend chur ch or zoroastrian services? 1 to 4 times per year [...] Sex Assigned at Female 03/27/2017 3:30 PM PARKING MANAGER Gender Identity Female 03/27/2017 3:30 PM PARKING MANAGER Sexual Orientation Straight 03/27/2017 3: 30 PM PARKING MANAGER documented as of this encounter Plan of Treatment Upcoming Encounters Date Type Department Care Team (Latest Contact Info) Description 07/09/2023 8:20 AM PARKING MANAGER Appointment Department of Laboratory Medicine in [address] [phone] Allyn Alfredo M.D. [address] [place] [phone] 07/09/2023 9:15 AM PARKING MANAGER Office Visit Department of Family Medicine, [facility], in [address] [phone] Allyn Alfredo M.D. [address] [place] [phone] 07/16/2023 12:06 PM PARKING MANAGER Hospital Encounter Post Anesthesia Care Unit in [place] [id number] [place] [phone] Cristhian Grant M.B., Ch.B., Ph.D. [address] [place] [phone] 07/16/2023 12:06 PM PARKING MANAGER - 07/16/2023 3:35 PM PARKING MANAGER Surgery RST ROMB MAIN OR [facility] [place] [phone] Cristhian Grant M.B., Ch.B., Ph.D. [address] [place] [phone] CREATION FISTULA RADIOCEPHALIC ARTERIOVENOUS 07/20/2023 11:00 AM CDT Office Visit Department of Orthopedic Surgery in [address] [phone] Cindy Walker D.P.M. [phone] [place] [phone] Discharge Disposition: Home or Self Care 08/25/2023 3:15 PM CDT Telemedicine Department of Sleep Medicine in [place], [place] [address] [phone] Emilee Emanuel APRN, C.N.P., D.N.P., M.S.N. [address] [phone] Scheduled Procedures Name Priority Associated Diagnoses Date/Ti me CREATION FISTULA RADIOCEPHALIC ARTERIOVENOUS Chronic Kidney Disease Stage 5 Glomerular 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) 07/16/2023 12:06 PM PARKING MANAGER CREATION FISTULA BRACHIOCEPHALIC ARTERIOVENOUS Chronic Kidney Disease Stage 5 Glomerular 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) 07/16/2023 12:06 PM PARKING MANAGER documented as of this encounter Procedures Procedure Name Priority Date/Time Associated Diagnosis Comments NURSING IMAGE EXAM Routine 02/24/2023 1: 44 PM CDT documented in this encounter Results * Wrist, Left-Nursing Image Exam (02/24/2023 1:44 PM CDT) 02/24/2023 1:43 PM CDT Narrative [facility] - 02/24/2023 1:44 PM CDT This order has been created and auto-finalized to support the import of images acquired without order. The clinical documentation to support these images can be found on the encounter that produced images. Provider Not In System IMG NON RAD IMAGI NG PROCEDURES [facility] NA documented in this encounter Visit Diagnoses Not on filedocumented in this encounter Additional Health Concerns Assessment Noted Time PHQ-9 Depression Total Score: 0 02/24/20 23 1:03 PM CDT documented as of this encounter Care Teams Caretaker Relationship Specialty Start Date End Date Allyn Alfredo M.D. [address] [place] [phone] PCP - General Family Medicine 04/05/21 documented as of this encounter
--- OUTSIDE RECORDS SUMMARY | 2023-06-24 18:15 | XMS_ITS | Encounter Summary ---
Author Name Unknown Organization [facility] Address [address] [place] [address] Care Team Providers Care Medical Researcher Name Role Phone Allyn Alfredo M.D. Primary Care Pro vider Reason for Referral * Outpatient (Routine) - Closed Specialty Diagnoses / Procedures Referred By Esther zamorano Referred To Contact Diagnoses Periodic Limb Movement Disorder Fatigue Extreme Apnea Sleep Obstructive Procedures Polysomnography (PSG): Split Night Polysomnography (PSG): Split Night Emilee Emanuel APRN, C.N.P., D.N.P., M.S.N. [address] [place] [phone] [facility] Region Referral ID Status Reason Start Date Expiration Date Visits Re quested Visits Authorized [id number] Closed 01/27/2023 01/27/2024 1 1 Reason for Visit * Outpatient (Routine) - Closed Specialty Diagnoses / Procedures Referred By Esther zamorano Referred To Contact Diagnoses Periodic Limb Movement Disorder Fatigue Extreme Apnea Sleep Obstructive Procedures Polysomnography (PSG): Split Night Polysomnography (PSG): Split Night Emilee Emanuel APRN, C.N.P., D.N.P., M.S.N. [address] [phone] [facility] Region Referral ID Status Reason Start Date Expiration Date Visits Re quested Visits Authorized [id number] Closed 01/27/2023 01/27/2024 1 1 Encounter Details Date Type Department Care Team (Latest Contact Info) Description 02/03/2023 7:51 PM CDT - 02/06/2023 11:59 PM CDT Hospital Encounter Department of Sleep Medicine in [place], [place] [address] [place] [address] Emilee Emanuel APRN, C.N.P., Jayden.N.P., M.S.N. [address] [place] [phone] Periodic Limb Movement Disorder; Fatigue Extreme; Apnea Sleep Obstructive Discharge Disposition: Home or Self Care Social [...] often do you attend chur ch or judaism services? 1 to 4 times per year 09/11/2022 Do you belong to any clubs o r organizations such as rastafari groups, unions, fraternal or athletic groups, or [...] PHQ-2 Answer Date Recorded PHQ-2 Score 0 07/25/2022 [facility] - Occupational [...] in a alf (including now)? No 09/11/2022 Nutrition Answer Date Recorded Nutrition: EVOO Fat [...] Sex Assigned at Female 03/27/2017 3:30 PM CHIEF DEVELOPMENT OFFICER Gender Identity Female 03/27/2017 3:30 PM CHIEF DEVELOPMENT OFFICER Sexual Orientation Straight 03/27/2017 3: 30 PM CHIEF DEVELOPMENT OFFICER documented as of this encounter Medications at Time of Discharge Medication Sig Dispensed Refills Start Date End Date aspirin [address] tablet Take 1 tablet by mouth daily. 0 BD Ultra-Fine Short Pen Needle 31 gauge x 5/16 needle Inject 4 Injection under the skin daily. 400 each 3 12/25/2022 blood-glucose meter,continuous (Dexcom G7 Cold Food Packer) misc Use as directed 3 (three) times [...] Take 1 tablet by mouth daily. 0 pravastatin (PRAVACHOL) 40 mg tablet TAKE 1 TABLET AT BEDTIME FOR CHOLESTEROL 90 tablet 3 01/01/2023 allopurinoL (ZYLOPRIM) 100 mg tablet TAKE 1 TABLET DAILY 90 tablet 3 04/08/2022 05/19/2023 amLODIPine (NORVASC) 5 mg tablet TAKE 1 TABLET DAILY 90 tablet 3 01/07/2023 03/01/2023 gentamicin sulfate 1.2 g sterile powder Apply 1 application topically as needed. 0 02/23/2023 insulin glargine (Basaglar KwikPen U-100 Insulin) 100 unit/mL (3 mL) injection Inject 12 Units under the skin at bedtime. 15 mL 3 09/30/2022 03/10/2023 losartan (COZAAR) 50 mg tablet Take 1 tablet (50 mg total) by mouth daily. 90 tablet 3 04/09/2022 03/01/2023 multivitamin renal failure (DIALYVITE) 100-1 mg tablet TAKE 1 TABLET BY MOUTH DAILY WITH DINNER 30 tablet 1 04/06/2021 03/10/2023 pramipexole (MIRAPEX) 0.125 mg tablet Take 1 tablet (0.125 mg total) by mouth at bedtime. 90 tablet 3 02/03/2023 03/03/2023 sevelamer (RENVELA) 800 mg tablet Take 2 tablets (1,600 mg total) by mouth 3 (three) times a day with meals. 540 tablet 3 07/02/2021 02/23/2023 torsemide (DEMADEX) 5 mg tablet Take 1.5 tablets (7.5 mg total) by mouth 2 (two) times a day with meals. 270 tablet 3 04/06/2021 03/01/2023 zolpidem (AMBIEN) 5 mg tablet Take 1 tablet (5 mg total) by mouth once for 1 dose. Take on the night of the sleep study in the presence of the premises technician. 1 tablet 0 01/27/2023 02/23/2023 documented as of this encounter Plan of Treatment Upcoming Encounters Date Type Department Care Team (Latest Contact Info) Description 07/09/2023 8:20 AM CHIEF DEVELOPMENT OFFICER Appointment Department of Laboratory Medicine in [address] [phone] Allyn Alfredo M.D. [address] [place] [phone] 07/09/2023 9:15 AM CHIEF DEVELOPMENT OFFICER Office Visit Department of Family Medicine, [facility], in [address] [phone] Allyn Alfredo M.D. [address] [place] [phone] 07/16/2023 12:06 PM CHIEF DEVELOPMENT OFFICER Hospital Encounter Post Anesthesia Care Unit in [address] [phone] Cristhian Grant M.B., Ch.B., Ph.D. [address] [place] [phone] 07/16/2023 12:06 PM CHIEF DEVELOPMENT OFFICER - 07/16/2023 3:35 PM CHIEF DEVELOPMENT OFFICER Surgery [facility] [address] [place] [phone] Cristhian Grant M.B., Ch.B., Ph.D. [address] [place] [phone] CREATION FISTULA RADIOCEPHALIC ARTERIOVENOUS 07/20/2023 11:00 AM CDT Office Visit Department of Orthopedic Surgery in [address] [phone] Cindy Walker D.P.M. [address] [place] [phone] Discharge Disposition: Home or Self Care 08/25/2023 3:15 PM CDT Telemedicine Department of Sleep Medicine in [place], [place] [address] [place] [phone] Emilee Emanuel APRN, C.N.P., D.N.P., M.S.N. [address] [place] [phone] Scheduled Procedures Name Priority Associated Diagnoses Date/Ti me CREATION FISTULA RADIOCEPHALIC ARTERIOVENOUS Chronic Kidney Disease Stage 5 Glomerular 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) 07/16/2023 12:06 PM CHIEF DEVELOPMENT OFFICER CREATION FISTULA BRACHIOCEPHALIC ARTERIOVENOUS Chronic Kidney Disease Stage 5 Glomerular 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) 07/16/2023 12:06 PM CHIEF DEVELOPMENT OFFICER documented as of this encounter Procedures Procedure Name Priority Date/Time Associated Diagnosis Comments POLYSOMNOGRAPHY Routine 02/04/2023 6:23 AM CDT Periodic Limb Movement Disorder Fatigue Extreme Apnea Sleep Obstructive documented in this encounter Results * Polysomnography (PSG): Split Night (02/04/2023 6:23 AM CDT) Narrative ONBASE - 02/24/2023 1:04 PM CDT SLEEP STUDY REPORT PRIMARY CARE PHYSICIAN: ??Allyn Alfredo M.D. REFERRING PROVIDER: ?? Emilee Emanuel APRN, C.N.P., D.N.P., M.S.N. [address], ??[place] [phone] HISTORY OF PRESENT ILLNESS The patient is a 77-year-old female with past medical history significant for hypertension, end-stage renal disease on dialysis, and then previous diagnosis of obstructive sleep apnea, not on CPAP. ??The patient presents for attended polysomnogram to once more assess sleep disorder breathing in the setting of ongoing snoring and fatigue. MEDICATIONS No sleep aid used during the night of this polysomnogram Weight: ??90.0 kg BMI: ??34.3 ?[place]: ? SLEEP STUDY REPORT: ??This routine split night polysomnogram was performed on Voicendo using the standard diagnostic protocol outlined by the [place] [employer] . This included 6 channels of EEG, 2 channels of EOG, chin EMG, bilateral anterior tibialis EMG, nasal/oral thermister, PTAF (nasal pressure transducer), chest and abdominal wall movements, EKG rhythm strip, and pulse oximetry. The study was scored based upon [place] [employer] scoring guidelines in accordance with Medicare guidelines. ??All of the raw data was reviewed. ??The study started at 10:07 p.m. the night of 02/03/2023 and ended at 5:58 a.m. of the following morning. Please see technical data from same date for more details. SLEEP ARCHITECTURE: ??The diagnostic portion of the study showed a sleep efficiency of 72.5%. ??Total recording time was 173.8 minutes with a total sleep time of 126.0 minutes. ?? Initial sleep onset latency was 20.5 minutes with an initial sleep onset REM latency not recorded due to absence of stage REM sleep during the diagnostic portion of this polysomnogram. ??Wake after sleep onset was 27.0 minutes in total. Distribution of sleep stages was as follows: Stage N1 ??6.3%, stage N2 93.7%, Stage N3 0.0% and REM Sleep 0.0%. ??Arousal index was 39.5/hr with 27.6 events per hour breathing related, 8.6 events per hour movement related and the remainder nonspecific arousals. Sleep architecture as above. RESPIRATORY PATTERN: Snoring was recorded. Apnea-hypopnea index was 31.0/hr and was given by an obstructive apnea index of 14.3, hypopnea index of 16.2 and central apnea index of 0.5, Respiratory disturbance index was 35.7hr, average oxygen saturation was 89.9% with minimal oxygen saturation of 80.0% during sleep. ELECTROCARDIOGRAM: ??Rhythm strip EKG showed sinus rhythm with PVCs with mean heart rate of 78.8 bpm and maximal heart rate of 84.0 bpm during the diagnostic portion of this polysomnogram. BODY MOVEMENTS: ??Periodic limb movement index was 69.5 with Periodic Limb movement arousal index of 6.2 during diagnostic portion. During CPAP titration, Periodic limb movement index was 7.4 with periodic limb movement arousal index of 0. ??During BiPAP titration, periodic limb movement index was 7.9 with periodic limb movement arousal index of 4.3. CPAP TITRATION: ??CPAP therapy was initiated at 1:03 a.m. after criteria was met for initiation. Initial CPAP pressure was 5 cm of water. ??The mask used was a F&P Joanna full face s/m mask. ??At final pressure of 15 cm of water, apnea-hypopnea index was 21.2 per hour, average oxygen saturation was 93.9% with minimal oxygen saturation of 87.0% during sleep. ??Arousal index was 31.8/hr. During CPAP titration, sleep efficiency was 93.8% with 170.0 minutes of sleep recorded including 130.0 minutes of supine sleep, sleep architecture showed the following distribution of sleep stages: ??Stage N1 4.7%, stage N2 52.4%, stage N3 27.1% and stage REM 15.9%. ??Average oxygen saturation was 90.8% ??with minimal oxygen saturation of 78.0% during sleep. BiPAP TITRATION: ??BiPAP therapy was initiated at 4:07 a.m. after criteria was met for initiation. Initial BiPAP pressure was 19/15 cm of water. ??The mask used was a F&P Joanna full face s/m mask. ??At final pressure of 24/20 cm of water, apnea-hypopnea index was 0 per hour, average oxygen saturation was 95.0% with minimal oxygen saturation of 91.0% during sleep. Arousal index was 23.0/hr. During BiPAP titration, sleep efficiency was 88.9% with 98.5 minutes of sleep recorded including 98.5 minutes of supine sleep, sleep architecture showed the following distribution of sleep stages: ??Stage N1 7.1%, stage N2 74.6%, stage N3 0.0% and stage REM 18.3%. ??Average oxygen saturation was 94.1% ??with minimal oxygen saturation of 87.0% during sleep. CLINICAL INTERPRETATION: 1. Severe obstructive sleep apnea with Apnea/hypopnea index of 31.0/hr and Respiratory disturbance index of 35.7/hr. ??Severity of disease may be underestimated due to absence of stage REM sleep during the diagnostic portion of this polysomnogram. ?? 2. 47.5 minutes recorded with O2 saturation less than or equal to 88% during the diagnostic portion of this polysomnogram 3. Adequate CPAP titration at a pressure of 13 cm H2O, though no stage REM sleep observed at this setting 4. Adequate BiPAP titration at a pressure of 24/20 cm H2O, though only 0.5 minutes of stage REM sleep observed at this setting 5. Increased periodic limb movements of sleep seen during the diagnostic portion of this polysomnogram, though improved on positive air pressure therapy CLINICAL CORRELATION: ?? 1. ??Based on the presence of severe obstructive sleep apnea, recommend one of the following: - BiPAP 24/20 cm H2O - all night positive air pressure titration polysomnogram may also be considered - position restriction and elevation of the head of the bed may be used as adjunctive therapy to the above 2. The patient? s body mass index is elevated, weight loss is recommended. 3. ??The patient should avoid activities that require a high level of alertness like driving, if she feels drowsy. The patient will follow up with the sleep offices to discuss results of sleep study. Tommie Decker M.D. Gabby Orozco APRN.N.P., D.N.P., M.S. N. [facility] documented in this encounter Visit Diagnoses Diagnosis Periodic Limb Movement Disorder Fatigue Extreme Apnea Sleep Obstructive Chronic Kidney Disease Stage 5 Glomerular 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) documented in this encounter Additional Health Concerns Assessment Noted Time PHQ-9 Depression Total Score: 5 06/25/19 16 1:22 PM CHIEF DEVELOPMENT OFFICER documented as of this encounter Care Teams Medical Researcher Relationship Specialty Start Date End Date Allyn Alfredo M.D. [address] [phone] PCP - General Family Medicine 04/05/21 documented as of this encounter
--- OUTSIDE RECORDS SUMMARY | 2023-06-24 18:15 | XMS_ITS | Encounter Summary ---
Author Name Unknown Organization [facility] Address [address] [place] [address] Care Team Providers Care Counseling Specialist Name Role Phone Allyn Alfredo M.D. Primary Care Pro vider Reason for Visit * Reason Comments Weakness - Generalized Presents with tawana sea, vomiting last night, and generalized weakness Encounter Details Date Type Department Care Team (Late st Contact Info) Description 02/22/2023 4:10 PM CDT - 02/22/2023 10:16 PM CDT Emergency [facility] [address] [place] [phone] Tommie Sylvester APRN, C.N.P., D.N.P. [address] [place] [phone] Weakness General (Primary Dx); Debility; 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) Discharge Disposition: Acute Care Hospital Social History Tobacco Use Types Packs/Day Years Used Date Smoking Tobacco: Former Cigarettes 0 Q uit: 2013 Smokeless Tobacco: Never Tobacco Cessation:Counseling Given: Not Answered Alcohol Use Standard Drinks/Week Comments Yes 0 [...] often do you attend chur ch or mandaeism services? 1 to 4 times per year [...] Answer Date Recorded PHQ-2 Score 0 02/23/2023 [facility] - [...] Sex Assigned at Female 03/27/2017 3:30 PM INDUSTRIAL TRAINING SPECIALIST Gender Identity Female 03/27/2017 3:30 PM INDUSTRIAL TRAINING SPECIALIST Sexual Orientation Straight 03/27/2017 3: 30 PM INDUSTRIAL TRAINING SPECIALIST documented as of this encounter Last Filed Vital Signs Vital Sign Reading Time Taken Comments Blood Pressure 130/42 02/22/2023 10:14 PM CDT Pulse 75 02/22/2023 10:14 PM CDT Temperature 36.4 ??C (97.5 ??F) 02/22/2023 4:52 PM CD T Respiratory Rate 18 02/22/2023 10:14 PM CDT Oxygen Saturation 94% 02/22/2023 6:15 PM CDT Inhaled Oxygen Concentration - - Weight 87 kg (191 lb 12.8 oz) 02/22/2023 4:16 PM CDT Height - - Body Mass Index 33.15 07/29/2022 4:50 PM CDT documented in this encounter Medications at Time of Discharge Medication Sig Dispensed Refills Start Date End Date aspirin [address] tablet Take 1 tablet by mouth daily. 0 BD Ultra-Fine Short Pen Needle 31 gauge x 5/16 needle Inject 4 Injection under the skin daily. 400 each 3 12/25/2022 blood-glucose meter,continuous ([employer]ex[employer] G7 Loader Operator/Ground Leader) misc Use as directed 3 (three) times [...] sleep study in the presence of the air analysis technician. 1 tablet 0 01/27/2023 02/23/2023 documented as of this encounter ED Notes * Brad Delvalle, Ruddy. - 02/22/2023 8:06 PM CDT At shift change I assumed care of the patient from outgoing provider. Patient had been determined to require hospital admission. Was awaiting return phone call from [facility] for likely admission to [place]. Discussed the case with Dr. Blayne ARCINIEGA who agreed to accept the patient for admission. Patient is stable at time of transfer via ground BLS ambulance. VITAL SIGNS BP (!) 134/48 Pulse 77 Temp 36.4 ??C (Temporal) Wt 87 kg SpO2 94% BMI 33.15 kg/m?? Final Diagnoses: as of 02/22/232005 Weakness General Debility 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) Brad Delvalle P.A.-C. 02/22/232006 * Tommie Sylvester APRN, C.N.P., D.N.P. - 02/22/2023 4:25 PM CDT Images from the original note were not included. CHIEF COMPLAINT/REASON FOR VISIT Weakness - Generalized (Presents with nausea, vomiting last night, and generalized weakness) HISTORY OF PRESENT ILLNESS Patient with a past medical history of diabetes type 2, gout, hypertension, renal disease on peritoneal dialysis, breast cancer, and low back pain presents to the emergency department with worsening fatigue and lethargy. Looking at her previous documentation, there was a case management at [facility] with Nephrology, she was complaining of severe fatigue at that time. Patient had been managing her peritoneal dialysis at home alone. Patient talked to the deli manager gayatri she states she is just so fatigued she can barely get out of bed and she is unable to clerical support specialist her own peritoneal dialysis for the run. Patient also feels very lethargic. Last night she did have some upset stomach with 1 episode of nausea vomiting which did improve her symptoms. Now she states she just feels very hungry. She is not really eaten anything today. Patient denies any fever, chills, sweats. She has some shortness of breath with exertion but this is normal for her, there is no dyspnea right now. Patient does peritoneal dialysis every night. She ran last night without any difficulties. Patient states she has had a few lb weight loss but no in edema that she is noticed. History provided by: Patient manager presentation needed/used: no REVIEW OF SYSTEMS Allergies Reviewed in medical record Current Medications Reviewed in Medical Record. PAST HISTORY Medical Past Medical History: Diagnosis Date Cataract Diabetes Mellitus NOS Diabetes Mellitus Type 2 With Diabetic Nephropathy (HCC) 04/04/2015 Diabetes Mellitus Secondary CKD Stage III GFR 30-59 Gout Acute 09/19/2014 Hypertension NOS Renal Disease 2005 Sickness Motion Personal History Sleep Apnea Patient reports no Patient Active Problem List Diagnosis Cancer Breast [...] (HCC) Dialysis Peritoneal Status (HCC) Fatigue Extreme Surgical Past Surgical History: Procedure Laterality Date EXTRACTION CATARACT WITH INSERTION INTRAOCULAR LENS Right 10/26/2017 Procedure: EXTRACTION CATARACT WITH INSERTION INTRAOCULAR LENS, right eye; Surgeon: Lalo Carroll M.D.; Location: [facility] CACF OR EXTRACTION CATARACT WITH INSERTION INTRAOCULAR LENS Left 11/09/2017 Procedure: EXTRACTION CATARACT WITH INSERTION INTRAOCULAR LENS, left eye; Surgeon: Ayleen Carroll M.D.; Location: [facility] CACF OR HYSTERECTOMY 1988 also removed ovaries LAPAROSCOPIC INSERTION DIALYSIS CATHETER PERITONEAL N/A 03/16/2020 Procedure: LAPAROSCOPIC INSERTION DIALYSIS CATHETER PERITONEAL., Omentopexy; Surgeon: Christine Warren Jr., M.D.; Location: [facility] ROET OR TONSILLECTOMY N/A 1951 Tonsillectomy Family Reviewed in Medical Record Social History Social History Tobacco Use Smoking status: Former Packs/day: 0.00 Types: Cigarettes Quit date: 2012 Years since quittin.7 Smokeless tobacco: Never Substance Use Topics Alcohol use: Yes Comment: less than monthly Social History Substance and Sexual Activity Drug Use No OBJECTIVE Initial Vital Signs / Weights Initial Vitals Temperature 02/22/23 1652 36.4 ??C Pulse Rate 02/22/23 1615 80 Heart Rate -- Resp -- Blood Pressure 02/22/23 1615 160/68 SpO2 02/22/23 1615 96 % Pain Score 02/22/23 1619 9 Wt Readings from Last 3 Encounters: 02/22/23 87 kg 01/08/23 90 kg 07/29/22 94.6 kg PHYSICAL EXAMINATION Constitutional: Nursing note and vitals reviewed. No distress. Pale somewhat ashen. HENT: Mouth/Throat: Oropharynx is clear and moist. Mucous membranes are moist. No tonsillar exudate. Eyes: Conjunctivae and EOM are normal. Pupils are equal, round, and reactive to light. Neck: Neck supple. Cardiovascular: Normal rate, regular rhythm, S1 normal, S2 normal and normal heart sounds. Pulses are strong and palpable. No murmur heard.Capillary refill: takes less than 3 seconds Pulmonary/Chest: Effort normal and breath sounds normal. There is normal air entry. No respiratory distress. Abdominal: Soft. Bowel sounds are normal. There is no abdominal tenderness. There is no rebound andno guarding. Abdomen soft flat nontender. Mild distention. Patient dialysis port in the right abdomen is clean, dry with no erythema. No evidence of an infection. Musculoskeletal: General: Normal range of motion. Cervical back: Normal range of motion and neck supple. Lymphadenopathy: She has no cervical adenopathy. Neurological: Alert and oriented to person, place, and time. No cranial nerve deficit. Skin: Skin is warm, dry and intact. Psychiatric: She has a normal mood and affect. DIAGNOSTICS Labs Labs Reviewed CBC WITH DIFFERENTIAL, B - Abnormal Result Value Hemoglobin 10.1 (*) Hematocrit 29.8 (*) Erythrocytes 2.89 (*) MCV 103.1 (*) RBC Distrib Width 14.4 Platelet Count 264 Leukocytes 8.1 Neutrophils 5.82 Lymphocytes 1.54 Monocytes 0.52 Eosinophils 0.13 Basophils 0.07 MAGNESIUM, S - Abnormal Magnesium, P 2.6 (*) COMPREHENSIVE METABOLIC PANEL, S/P - Abnormal Potassium, P 3.3 (*) Sodium, P 135 Chloride, P 86 (*) Bicarbonate, P 20 (*) Anion Gap, P 29 (*) BUN (Blood Urea Nitrogen), P 52 (*) Creatinine 14.61 (*) Estimated GFR (eGFR) <15 (*) Calcium, Total, P 10.1 Glucose, P 143 (*) Protein, Total, P 7.2 Albumin, P 4.0 Aspartate Aminotransferase (AST), P 17 Alkaline Phosphatase, P 77 Alanine Aminotransferase (ALT), P 18 Bilirubin, Total, P 0.3 C-REACTIVE PROTEIN (CRP), S/P - Abnormal C-Reactive Protein (CRP), P 6.5 (*) SARS CORONAVIRUS 2, PCR RAPID, V SARS Coronavirus 2, Source, Rapid Swab, Nasopharynx BACTERIA / MICAELA CULTURE, BLOOD Narrative: Specimen Information: Specimen ID: [id number] Specimen Source: Blood, Peripheral Draw Specimen Comment: Specimen Source Site: Blood Specimen Collection Start Date: 02/22/2023 5:19 PM Specimen Received Date: 02/22/2023 5:23 PM Specimen ID: [id number] Specimen Source: Blood, Peripheral Draw Specimen Comment: Specimen Source Site: Blood Specimen Collection Start Date: 02/22/2023 5:19 PM Specimen Received Date: 02/22/2023 5:23 PM Specimen ID: [id number] Specimen Source: Blood, Peripheral Draw Specimen Comment: Specimen Source Site: Blood Specimen Collection Start Date: 02/22/2023 5:19 PM Specimen Received Date: 02/22/2023 5:23 PM BACTERIA / MICAELA CULTURE, BLOOD Narrative: Specimen Information: Specimen ID: [id number] Specimen Source: Blood, Peripheral Draw Specimen Comment: Specimen Source Site: Blood Specimen Collection Start Date: 02/22/2023 5:19 PM Specimen Received Date: 02/22/2023 5:23 PM Specimen ID: [id number] Specimen Source: Blood, Peripheral Draw Specimen Comment: Specimen Source Site: Blood Specimen Collection Start Date: 02/22/2023 5:20 PM Specimen Received Date: 02/22/2023 5:23 PM Specimen ID: [id number] Specimen Source: Blood, Peripheral Draw Specimen Comment: Specimen Source Site: Blood Specimen Collection Start Date: 02/22/2023 5:20 PM Specimen Received Date: 02/22/2023 5:23 PM LACTATE, B/P Lactate, P 2.0 LACTATE, B/P URINALYSIS WITH MICROSCOPIC INFLUENZA A, B, RSV, PCR, POCT ECG ECG 12 Lead Result Date: 02/22/2023 Sinus rhythm Premature atrial complexes Left axis deviation Cannot rule out Anteroseptal infarct Non-specific intra-ventricular conduction delay When compared with ECG of 10-NOV-2022 09:51, Premature atrial complexes are now present QRS axis has changed QRS duration has increased Reviewed by JANA Goodman Radiology DX Chest Portable 1 View Final Result No active intrathoracic disease. Procedures None See separate procedure note. ED COURSE ED Course as of 02/22/232017 [place] Feb 22, 2023 1625 I performed my initial evaluation of the patient. We discussed Emergency Department course including testing, treatment, and potential disposition based on findings. 1700 Chest xray IMPRESSION: No active intrathoracic disease. 1700 IMPRESSION: Sinus rhythm Premature atrial complexes Left axis deviation Cannot rule out Anteroseptal infarct Non-specific intra-ventricular conduction delay When compared with ECG of 10-NOV-2022 09:51, Premature atrial complexes are now present QRS axis has changed QRS duration has increased Reviewed by JANA Goodman 1719 Delay to get labs secondary to volume 1742 Lactate: 2.0 reassuring 1742 Hemoglobin(!): 10.1 1742 Hematocrit(!): 29.8 Similar to previous 180 Labs states the BMP is hemolyzed and will have to be re run with another sample which she has in lab 1849 Creatinine 14.6 according to lab 185 Potassium, P(!): 3.3 1850 Chloride, P(!): 86 1850 Bicarbonate, P(!): 20 1850 Anion Gap, P(!): 29 1850 BUN (Blood Urea Nitrogen), P(!): 52 Similar to previous 185 Discuss the case with Elisa in [facility], she will look for a bed in [place]. 1855 Creatinine(!): 14.61 Previous usually around 12 1900 Patient signed out to Brad Delvalle Pac at change of shift. Final Diagnoses: as of 02/22/232017 Weakness General Debility 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) INTERVENTIONS Medications - No data to display MEDICAL DECISION MAKING Assessment and Plan Patient presents to the emergency department with complaints of profound weakness. Patient states she called Nephrology because she was having difficulty taking care of herself at home, she did not feel she would be able to give herself her peritoneal dialysis tonight. Nephrology told her to come to the hospital and get admitted to [place] for further evaluation. On arrival to the emergency department the patient is alert and oriented, talking, mild abdominal distention but no pain, her PD catheter is clean and dry with no evidence of cellulitis or infection. In reviewing her medical records the patient has had significant fatigue for the last couple of weeks, the patient states it is carolyn en worse the last couple of days. Patient denies any fever, chills, sweats cough shortness of breath, nausea, vomiting or any other symptoms. She just states she is profoundly fatigued and now unableto take care of herself at home. Differential diagnosis includes but not limited to bacterial infection, spontaneous bacterial peritonitis, debility, pneumonia, influenza, COVID, or others. Workup in the emergency department including a CBC, magnesium, CMP, CRP and blood cultures. Urinalysis was ordered however the patient did not know if she would be able to go or not she rarely goes. Disposition pending workup. But anticipate admission. Workup in the emergency department is similar to previous lab findings. Patient is in chronic renalfailure with a creatinine of 14, she normally runs around 12. Her potassium is normal, patient doeshave an open gap which is similar to her previous labs. Her white count is normal. Her CRP is essentially unremarkable. Patient has no abdominal pain so I doubt spontaneous bacterial peritonitis. Bloo d cultures are pending. Unfortunately the patient is unable to not take care of herself at home secondary to the fatigue. I did contact [place] for transfer to [place] for peritoneal dialysis is were unable to provide that service at our facility and we have no beds. This is pending at this writing. Patient was signed out to my colleague Brad Delvalle Pac.. DIFFERENTIAL DIAGNOSES As above. PROBLEMS ADDRESSED THIS VISIT As above. Care is significantly affected by the following Social Determinants of Health: none. I reviewed the following external records: primary care records. The following tests were considered but ultimately not performed: None. Escalation of care, including admission/observation, considered: Patient will require admission.. DIAGNOSIS Final diagnoses: [R53.1] Weakness General [R53.81] Debility [N18.6, Z99.2] 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) DISPOSITION Anticipate transfer to [facility] but this is pending. DISCHARGE/TRANSFER VITAL SIGNS Vitals: 02/22/23 1815 BP: (!) 134/48 Pulse: 77 Temp: SpO2: 94% Tommie Sylvester, RYAN, SECTIONAL BELT MOLD ASSEMBLER, DEPUTY SHERIFF LIEUTENANT-C, AGACNP-BC, ENP-C Emergency Medicine Tommie Sylvester APRN, C.N.P., D.N.P. 02/22/232020 documented in this encounter Plan of Treatment Upcoming Encounters Date Type Department Care Team (Latest Contact Info) Description 07/09/2023 8:20 AM INDUSTRIAL TRAINING SPECIALIST Appointment Department of Laboratory Medicine in [address] [phone] Allyn Alfredo M.D. [address] [place] [phone] 07/09/2023 9:15 AM INDUSTRIAL TRAINING SPECIALIST Office Visit Department of Family Medicine, [facility], in [address] [phone] Allyn Alfredo M.D. [address] [place] [phone] 07/16/2023 12:06 PM INDUSTRIAL TRAINING SPECIALIST Hospital Encounter Post Anesthesia Care Unit in [address] [phone] Cristhian Grant M.B., Ch.B., Ph.D. [address] [place] [phone] 07/16/2023 12:06 PM INDUSTRIAL TRAINING SPECIALIST - 07/16/2023 3:35 PM INDUSTRIAL TRAINING SPECIALIST Surgery [facility] MAIN OR [address] [place] [phone] Cristhian Grant M.B., Ch.B., Ph.D. [address] [place] [phone] CREATION FISTULA RADIOCEPHALIC ARTERIOVENOUS 07/20/2023 11:00 AM CDT Office Visit Department of Orthopedic Surgery in [address] [place] [phone] Cindy Walker D.P.M. [address] [place] [phone] Discharge Disposition: Home or Self Care 08/25/2023 3:15 PM CDT Telemedicine Department of Sleep Medicine in [place], [place] [address] [place] [phone] Emilee Emanuel APRN, C.N.P., D.N.P., M.S.N. [address] [place] [phone] Scheduled Procedures Name Priority Associated Diagnoses Date/Ti me CREATION FISTULA RADIOCEPHALIC ARTERIOVENOUS Chronic Kidney Disease Stage 5 Glomerular 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) 07/16/2023 12:06 PM INDUSTRIAL TRAINING SPECIALIST CREATION FISTULA BRACHIOCEPHALIC ARTERIOVENOUS Chronic Kidney Disease Stage 5 Glomerular 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) 07/16/2023 12:06 PM INDUSTRIAL TRAINING SPECIALIST documented as of this encounter Procedures Procedure Name Priority Date/Time Associated Diagnosis Comments SARS CORONAVIRUS 2, PCR RAPID, V STAT 02/22/2023 8:09 PM CDT INFLUENZA A, B, RSV, PCR, POCT STAT 02/22/2023 8:09 PM CDT CBC WITH DIFFERENTIAL, B STAT 02/22/2023 5:20 PM CDT C-REACTIVE PROTEIN (CRP), S/P STAT 02/22/2023 5:20 PM CDT MAGNESIUM, S STAT 02/22/2023 5:20 PM CDT LACTATE, B/P STAT 02/22/2023 5:20 PM CDT COMPREHENSIVE METABOLIC PANEL, S/P STAT 02/22/2023 5:20 PM CDT BACTERIA / MICAELA CULTURE, BLOOD STAT 02/22/2023 5:19 PM CDT BACTERIA / MICAELA CULTURE, BLOOD STAT 02/22/2023 5:19 PM CDT ECG STAT 02/22/2023 4:47 PM CDT DX CHEST PORTABLE 1 VIEW RAD - Routine (most inpatients and all outpatients) 02/22/2023 4:47 PM CDT documented in this encounter Results * Influenza A/B and RSV, PCR, Point of Care (02/22/2023 8:09 PM CDT) Pathologist [facility] Influenza A, POCT Negative Negative 02/22/2023 8:19 PM CDT CN[facility] Influenza B, POCT Negative Negative 02/22/2023 8:19 PM CDT [facility] Resp Syncytial Virus, POCT Negative Negative 02/22/2023 8:19 PM CDT CN[facility] Swab (Nasopharynx) 02/22/2023 8:09 PM CDT 02/22/2023 8:11 PM CDT Brad Delvalle P.A.-C. LAB POCT ORDERAB LES - DEVICE Performing Organization Address [facility]/State/[facility] Co de Phone Number [facility] [address] [place] [phone], [facility] in [address] [address] * SARS Coronavirus 2, PCR Rapid Symptomatic (02/22/2023 8:09 PM CDT) Pathologist [facility] SARS CoV-2, PCR, Rapid, V Undetected Undetected 02/22/2023 8:36 PM CDT [facility] Comment: ----ADDITIONAL INFORMATION---- This RT-PCR test was performed using the [employer] SARS-CoV-2 and Influenza A/B Reagent assay from [employer], which has received Emergency Use Authorization(EUA) by the U.S. Food and Drug Administration. Fact sheets for this Emergency Use Authorization (EUA) assay can be found at the following links: For Healthcare Providers: https://www.fda.gov/media/991431/download For Patients: https://www.fda.gov/media/789228/download SARS Coronavirus 2, Source, Rapid Swab, Nasopharynx 02/22/2023 8:11 PM CDT [facility] Swab (Nasopharynx) 02/22/2023 8:09 PM CDT 02/22/2023 8:11 PM CDT Brad Delvalle P.A.-C. LAB MICROBIOLOGY - GENERAL ORDERABLES Performing Organization Address City/[facility]/ZIP Co de Phone Number [facility] [address] [place] [address], [place] [address] * (ABNORMAL) CRP (C-Reactive Protein) (02/22/2023 5:20 PM CDT) [facility] C-Reactive Protein (CRP), P 6.5(H) <5.0 mg/L 02/22/2023 5:44 PM CDT [facility] Blood (Blood, Venous) 02/22/2023 5:20 PM CDT 02/22/2023 5:23 PM CDT Tommie Sylvester APRN C.N.P., D.N.P. LAB BLOOD ADD-ON [facility] [address] [place] [address], [facility] [place] [address] * (ABNORMAL) Comprehensive Metabolic Panel (02/22/2023 5:20 PM CDT) [facility] Potassium, P 3.3(L) 3.6 - 5.2 mmol/L 02/22/2023 6:41 PM CDT [facility] Sodium, P 135 135 - 145 mmol/L 02/22/2023 5:44 PM CDT [facility] Chloride, P 86(L) 98 - 107 mmol/L 02/22/2023 5:44 PM CDT [facility] Bicarbonate, P 20(L) 22 - 29 mmol/L 02/22/2023 5:44 PM CDT [facility] Anion Gap, P 29(H) 7 - 15 02/22/2023 5:44 PM CDT [facility] BUN (Blood Urea Nitrogen), P 52(H) 6 - 21 mg/dL 02/22/2023 5:44 PM CDT [facility] Creatinine 14.61(H) 0.59 - 1.04 mg/dL 02/22/2023 6:53 PM CDT [facility] Estimated GFR (eGFR) <15(L) >=60 mL/min/BS A 02/22/2023 6:53 PM CDT [facility] Comment: Estimated GFR calculated using the 2020 CKD_EPI creatinine equation. Calcium, Total, P 10.1 8.8 - 10.2 mg/dL 02/22/2023 5:44 PM CDT [facility] Glucose, P 143(H) 70 - 140 mg/dL 02/22/2023 5:44 PM CDT [facility] Protein, Total, P 7.2 6.3 - 7.9 g/dL 02/22/2023 5:44 PM CDT CN[facility] Albumin, P 4.0 3.5 - 5.0 g/dL 02/22/2023 5:44 PM CDT [facility] Aspartate Aminotransferase (AST), P 17 8 - 43 U/L 02/22/2023 6:41 PM CDT CN[facility] Alkaline Phosphatase, P 77 35 - 104 U/L 02/22/2023 6:41 PM CDT [facility] Alanine Aminotransferase (ALT), P 18 7 - 45 U/L 02/22/2023 6:41 PM CDT [facility] Bilirubin, Total, P 0.3 0.0 - 1.2 mg/dL 02/22/2023 5:44 PM CDT [facility] Blood (Blood, Venous) 02/22/2023 5:20 PM CDT 02/22/2023 5:23 PM CDT Tommie Sylvester APRN, C.N.P., D.N.P. [place] [address], [place] [address] * (ABNORMAL) Magnesium (02/22/2023 5:20 PM CDT) [facility] Magnesium, P 2.6(H) 1.7 - 2.3 mg/dL 02/22/2023 5:44 PM CDT [facility] Blood (Blood, Venous) 02/22/2023 5:20 PM CDT 02/22/2023 5:23 PM CDT Gabby Evans APRN.N.P., D.N.P. LAB BLOOD ADD-ON Performing Organization Address [facility]/ZIP Co de Phone Number [address] [address], [place] [address] * (ABNORMAL) CBC with Differential, Blood (02/22/2023 5:20 PM CDT) [facility] Hemoglobin 10.1(L) 11.6 - 15.0 g/dL 02/22/2023 5:29 PM CDT [facility] Hematocrit 29.8(L) 35.5 - 44.9 % 02/22/2023 5:29 PM CDT CN[facility] Erythrocytes 2.89(L) 3.92 - 5.13 x10(12)/L 02/22/2023 5:29 PM CDT [facility] MCV 103.1(H) 78.2 - 97.9 fL 02/22/2023 5:29 PM CDT [facility] RBC Distrib Width 14.4 12.2 - 16.1 % 02/22/2023 5:29 PM CDT CN[facility] Platelet Count 264 157 - 371 x10(9)/L 02/22/2023 5:29 PM CDT [facility] Leukocytes 8.1 3.4 - 9.6 x10(9)/L 02/22/2023 5:29 PM CDT CN[facility] Neutrophils 5.82 1.56 - 6.45 x10(9)/L 02/22/2023 5:29 PM CDT CN[facility] Lymphocytes 1.54 0.95 - 3.07 x10(9)/L 02/22/2023 5:29 PM CDT [facility] Monocytes 0.52 0.26 - 0.81 x10(9)/L 02/22/2023 5:29 PM CDT CNFL Eosinophils 0.13 0.03 - 0.48 x10(9)/L 02/22/2023 5:29 PM CDT CNFL Basophils 0.07 0.01 - 0.08 x10(9)/L 02/22/2023 5:29 PM CDT CN[facility] Blood (Blood, Venous) 02/22/2023 5:20 PM CDT 02/22/2023 5:23 PM CDT Gabby Evans APRN.N.P., D.N.P. [place] [address], [place] [address] * Lactate, baseline (02/22/2023 5:20 PM CDT) Lactate, P 2.0 0.5 - 2.2 mmol/L 02/22/2023 5:42 PM CDT CNFL Blood (Blood, Venous) 02/22/2023 5:20 PM CDT 02/22/2023 5:23 PM CDT Gabby Evans APRN.N.P., D.N.P. LAB BLOOD NON ADD-ON [facility] [address] [place] [address], [facility] CNFL [address] [place] [address] * Bacteria / Micaela Culture, Blood #2 (02/22/2023 5:19 PM CDT) Bacteria/Vivienne da Culture, Blood No growth after 5 day/s of incubation. 02/27/2023 6:02 PM CDT CNFL Blood (Blood, Peripheral Draw) 02/22/2023 5:19 PM CDT 02/22/2023 5:23 PM CDT Comment:Specimen Source Site : Blood Gabby Evans APRN.N.P., D.N.P. LAB MICROBIOLOGY - GENERAL ORDERABLES [address] [address], [address] [address] * Bacteria / Micaela Culture, Blood #1 (02/22/2023 5:19 PM CDT) Bacteria/Vivienne da Culture, Blood No growth after 5 day/s of incubation. 02/27/2023 6:02 PM CDT CNFL Blood (Blood, Peripheral Draw) 02/22/2023 5:19 PM CDT 02/22/2023 5:23 PM CDT Comment:Specimen Source Site : Blood Gabby Evans APRN.N.P., D.N.P. LAB MICROBIOLOGY - GENERAL ORDERABLES [address] [address], [address] [address] * ECG 12 Lead (02/22/2023 4:47 PM CDT) Ventricular Rate ECG/Min 85 BPM MUSE NM Interval 176 ms MUSE QRSD Interval 112 ms MUSE QT Interval 384 ms MUSE QTC Interval 456 ms MUSE P [place] 49 degrees MUSE R [place] -35 degrees MUSE T Wave [place] 117 degrees MUSE 02/22/2023 4:47 PM CDT 02/22/2023 4:57 PM CDT Impressions MUSE - 02/22/2023 4:57 PM CDT Sinus rhythm Premature atrial complexes Left axis deviation Cannot rule out Anteroseptal infarct Non-specific intra-ventricular conduction delay When compared with ECG of 10-NOV-2022 09:51, Premature atrial complexes are now present QRS axis has changed QRS duration has increased Reviewed by JANA Goodman Narrative Procedure Note Carlos Perez M.D. - 02/22/2023 IMPRESSION: Sinus rhythm Premature atrial complexes Left axis deviation Cannot rule out Anteroseptal infarct Non-specific intra-ventricular conduction delay When compared with ECG of 10-NOV-2022 09:51, Premature atrial complexes are now present QRS axis has changed QRS duration has increased Reviewed by JANA Goodman Tommie Sylvester APRN, C.N.P., D.N.P. ECG ORDERABLES MUSE NA * DX Chest Portable 1 View (02/22/2023 4:47 PM CDT) Anatomical Region Laterality Modality Chest, Thoracic RST LOS, Tho racic ARZ LOS, Thoracic FLA LOS N/A Digital Radiography 02/22/2023 4:49 PM CDT Impressions 02/22/2023 4:49 PM CDT No active intrathoracic disease. Narrative 02/22/2023 4:49 PM CDT EXAM: DX CHEST PORTABLE 1 VIEW COMPARISON: 10/12/2020 FINDINGS: Heart and pulmonary vasculature are normal. Lungs clear other than a small stable calcified granuloma in the peripheral right midlung, and minimal left basilar fibrosis. Procedure Note Dragan Pascual M.D. - 02/22/2023 EXAM: DX CHEST PORTABLE 1 VIEW COMPARISON: 10/12/2020 FINDINGS: Heart and pulmonary vasculature are normal. Lungs clear otherthan a small stable calcified granuloma in the peripheral right midlung, and minimal leftbasilar fibrosis. IMPRESSION: No active intrathoracic disease. Tommie Sylvester APRN, C.N.P., D.N.P. IMG DIAGNOSTIC IMAGING PROCEDURES documented in this encounter Visit Diagnoses Diagnosis Weakness General- Primary Debility 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) Chronic Kidney Disease Stage 5 Glomerular 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) documented in this encounter Additional Health Concerns Infection Onset Date Last Indicated Resolved Time COVID19 Pending 02/22/2023 02/22/2023 02/22/2023 8 :36 PM CDT Assessment Noted Time PHQ-9 Depression Total Score: 5 06/25/19 16 1:22 PM INDUSTRIAL TRAINING SPECIALIST documented as of this encounter Care Teams Counseling Specialist Relationship Specialty Start Date End Date Allyn Alfredo M.D. [address] [phone] PCP - General Family Medicine 04/05/21 documented as of this encounter
--- OUTSIDE RECORDS SUMMARY | 2023-06-24 18:15 | XMS_ITS | Encounter Summary ---
Author Name Unknown Organization [facility] Address [address] [place] [id number] Care Team Providers Care Bus Inspector Name Role Phone Allyn Alfredo M.D. Primary Care Pro vider Encounter Details Date Type Department Care Team (Late st Contact Info) Description 02/03/2023 Orders Only Division of Nephrology and Hypertension in [place], [place] [address] [place] [phone] Wilfrid Lincoln Jr., D.O. [address] [place] [phone] Social History Tobacco Use Types Packs/Day Years [...] How often do you attend chur or mandaeism services? 1 to 4 times per year 09/11/2022 Do you belong to any clubs o r organizations such as confucianism groups, unions, fraternal or athletic groups, or [...] Answer Date Recorded PHQ-2 Score 0 07/25/2022 [facility] of Occupat ional Health - [...] place to sleep or slept in a penitentiary (including now)? No 09/11/2022 Nutrition Answer Date [...] Sex Assigned at Female 03/27/2017 3:30 PM HEAVY MACHINERY OPERATOR Gender Identity Female 03/27/2017 3:30 PM HEAVY MACHINERY OPERATOR Sexual Orientation Straight 03/27/2017 3: 30 PM HEAVY MACHINERY OPERATOR documented as of this encounter Plan of Treatment Upcoming Encounters Date Type Department Care Team (Latest Contact Info) Description 07/09/2023 8:20 AM HEAVY MACHINERY OPERATOR Appointment Department of Laboratory Medicine in [address] [phone] Allyn Alfredo M.D. [address] [place] [phone] 07/09/2023 9:15 AM HEAVY MACHINERY OPERATOR Office Visit Department of Family Medicine, [facility], in [address] [phone] Allyn Alfredo M.D. [address] [place] [phone] 07/16/2023 12:06 PM HEAVY MACHINERY OPERATOR Hospital Encounter Post Anesthesia Care Unit in [place] [id number] [place] [phone] Cristhian Grant M.B., Ch.B., Ph.D. [address] [place] [phone] 07/16/2023 12:06 PM HEAVY MACHINERY OPERATOR - 07/16/2023 3:35 PM HEAVY MACHINERY OPERATOR Surgery [facility] MAIN OR [address] [place] [phone] Cristhian Grant M.B., Ch.B., Ph.D. [address] [place] [phone] CREATION FISTULA RADIOCEPHALIC ARTERIOVENOUS 07/20/2023 11:00 AM CDT Office Visit Department of Orthopedic Surgery in [address] [phone] Cindy Walker D.PLeidaMLeida [address] [place] [phone] Discharge Disposition: Home or Self Care 08/25/2023 3:15 PM CDT Telemedicine Department of Sleep Medicine in [place], [place] [address] [place] [phone] Emilee Emanuel APRN, C.N.P., D.N.P., M.S.N. [address] [phone] Scheduled Procedures Name Priority Associated Diagnoses Date/Ti me CREATION FISTULA RADIOCEPHALIC ARTERIOVENOUS Chronic Kidney Disease Stage 5 Glomerular 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) 07/16/2023 12:06 PM HEAVY MACHINERY OPERATOR CREATION FISTULA BRACHIOCEPHALIC ARTERIOVENOUS Chronic Kidney Disease Stage 5 Glomerular 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) 07/16/2023 12:06 PM HEAVY MACHINERY OPERATOR documented as of this encounter Visit Diagnoses Not on filedocumented in this encounter Additional Health Concerns Assessment Noted Time PHQ-9 Depression Total Score: 5 06/25/19 16 1:22 PM HEAVY MACHINERY OPERATOR documented as of this encounter Care Teams Bus Inspector Relationship Specialty Start Date End Date Allyn Alfredo M.D. [address] [phone] PCP - General Family Medicine 04/05/21 documented as of this encounter
--- OUTSIDE RECORDS SUMMARY | 2023-06-24 18:15 | XMS_ITS | Encounter Summary ---
Author Name Unknown Organization [facility] Address [address] [place] [address] Care Team Providers Care Nurse School Name Role Phone Allyn Alfredo M.D. Primary Care Pro vider Reason for Referral * Outpatient (Routine) - Closed Specialty Diagnoses / Procedures Referred By Esther zamorano Referred To Contact Diagnoses Periodic Limb Movement Disorder Fatigue Extreme Apnea Sleep Obstructive Procedures Polysomnography (PSG): Split Night Polysomnography (PSG): Split Night Emilee Emanuel APRN, Gabby.N.P., D.N.P., M.S.N. [address] [place] [phone] [facility] Region Referral ID Status Reason Start Date Expiration Date Visits Re quested Visits Authorized [id number] Closed 01/27/2023 01/27/2024 1 1 * Outpatient (Routine) - Closed Specialty Diagnoses / Procedures Referred By Esther zamorano Referred To Contact Sleep Medicine Emilee Emanuel APRN, C.N.P., D.N.P., M.S.N. [address] [place] [phone] [facility] Referral ID Status Reason Start Date Expiration Date Visits Re quested Visits Authorized [id number] Closed 01/27/2023 01/26/2026 1 1 Scheduling Instructions After PSG Reason for Visit * Reason Comments Sleep Apnea * Outpatient (Routine) - Closed Specialty Diagnoses / Procedures Referred By Contac t Referred To Contact Sleep Medicine Diagnoses Hypertension And Chronic Kidney Disease Stage 5 (HCC) Anemia Of Chronic Renal Disease Diabetes Mellitus Type 2 With Diabetic Nephropathy (HCC) Periodic Limb Movement Disorder Dialysis Peritoneal Status (HCC) Fatigue Extreme Wilfrid Lincoln Jr., D.O. [address] [place] [address] [facility] Referral ID Status Reason Start Date Expiration Date V isits Requested Visits Authorized [id number] Closed Specialty Services Required 11/04/2022 11/04/2023 1 1 Encounter Details Date Type Department Care Team (Latest Contact Info) Description 01/27/2023 3:00 PM CDT Comprehensive Visit Department of Sleep Medicine in [place], [place] [address] [phone] Emilee Emanuel APRN, C.N.P., D.N.P., M.S.N. [address] [phone] Apnea Sleep Obstructive (Primary Dx); Fatigue Extreme; Diabetes Mellitus Type 2 With Diabetic Nephropathy (HCC); Hypertension And Chronic Kidney Disease Stage 5 (HCC); Anemia Of Chronic Renal Disease; Dialysis Peritoneal Status (HCC); Periodic Limb Movement Disorder Social History Tobacco [...] week 09/11/2022 How often do you attend [facility] or orthodox services? 1 to 4 times per year 09/11/2022 Do you belong to any clubs o r organizations such as advent groups, unions, fraternal or athletic groups, or [...] Answer Date Recorded PHQ-2 Score 0 07/25/2022 [facility] [place] of Occupat ional Health - Occupational Stress [...] in a long-term (including now)? No 09/11/2022 Nutrition Answer Date [...] Sex Assigned at Female 03/27/2017 3:30 PM RESEARCH AND DEVELOPMENT CHEMIST Gender Identity Female 03/27/2017 3:30 PM RESEARCH AND DEVELOPMENT CHEMIST Sexual Orientation Straight 03/27/2017 3: 30 PM RESEARCH AND DEVELOPMENT CHEMIST documented as of this encounter Patient Instructions * Patient Instructions* Emilee Emanuel APRN, C.N.P., Jayden.N.P., M.S.N. - 01/27/2023 3:00 PM CDT -Labs today. We'll check iron stores since certain levels can help control leg movements during sleep. -Continue pramipexole. -Schedule sleep study in [place]. Follow up with me afterward to discuss results and recommendations. -I've prescribed Ambien 5 mg tab. Take this with you on the night of the sleep study and take in the presence of the mobile service rv technician if you're not able to get to sleep within an hour or so. documented in this encounter Consult Notes * Emilee Emanuel APRN, C.NTroy, Jayden.N.P., M.S.N. - 01/27/2023 3:00 PM CDT SUBJECTIVE CHIEF COMPLAINT / REASON FOR VISIT Concetta Medina is a 77 y.o. female presenting in referral from Wilfrid Lincoln Jr., * for consultation in the evaluation of Sleep Apnea. HISTORY OF PRESENT ILLNESS Sleep Apnea Associated symptoms include fatigue. Ms. Medina presents today in further evaluation of longstanding extreme fatigue in the setting of previously diagnosed obstructive sleep apnea which has been historically untreated. She has a personal history of type 2 diabetes with diabetic nephropathy, hypertensive CKD stage 5 on peritoneal dialysis with anemia of chronic renal disease and secondary hyperparathyroidism, periodic limb movement disorder, Meniere's disease, hyperlipidemia, and personal history of breast cancer and tobaccoism. She was initially evaluated for sleep disordered breathing by polysomnogram on August 14, 2011. This sleep study, which was done at the [facility] in [place], was reviewed which demonstrated an overall AHI of 7, non-REM supine AHI 17.3. Sleep architecture was compromised during the diagnostic portion of the study with exclusive light stages of sleep and no N3 or REM representation. Mean oxygen saturation was 94.1% with a tien of 86%. She did have elevated PLM index at 148.9 with PLM arousal index of 93.2. CPAP trial did occur during this study up to 9 cm of water pressure, which was effective at stabilizing her airway as well as improving sleep architecture with REM representation at that time. Sleep efficiency improved from 39.4% during the diagnostic portion of the study to 87.7% the therapeutic portion. Weight shortly after that study was 96.1 kg. She weighs 90 kg today. In regards to her periodic limb movement disorder, she was initiated on Mirapex at 0.125 mg daily shortly after her sleep study in 2011, however was discontinued shortly thereafter out of concern that would it was contributing to edema. Periodic limb movements were subsequently treated with gabapentin. Mirapex was restarted just last month by her Nephrology team. Last iron testing visible in our EMR was in October 2020 at which point ferritin was 532, TIBC 269, iron saturation 41%. She states that she is going to bed around 10:00 p.m.. She does not use sleep aids and generally does not have difficulties initiating sleep. She does not have a bed partner but has been told by her children when they visit that she snores like crazy. She has rarely woken herself up with short ofbreath or gasping arousals. No known witnessed apnea during sleep. She denies symptoms suggestive of parasomnia. Prior to initiating pramipexole she states that she would toss and turn all night longdue to restlessness. Since starting that medication she does feel that she generally sleeps throughthe night without interruption. She is up for the day around 8:00 a.m.. She does not feel rested inthe morning and feels like she can sleep all morning long. She is tired all day. She does not typically nap but does have a moderate to high chance of dozing with an Zumbrota Sleepiness Scale score of13. She drinks a few cups of coffee in the morning, otherwise minimal caffeine. The following portions of the patient's history were reviewed and updated as appropriate: allergies, current medications, family history, medical history, social history, surgical history, and problem list. REVIEW OF SYSTEMS Constitutional: Positive for fatigue. - Negative for weight gain of more than 10 pounds and weight loss of more than 10 pounds. Psychiatric/Behavioral: Positive for excessive daytime sleepiness/tiredness, loud snoring, stoppingbreathing, choking, or gasping while asleep and sleep disturbance. The following systems were negative: Skin, Eyes, Cardiovascular, Gastrointestinal, Genitourinary, Hematologic OBJECTIVE PHYSICAL EXAM Constitutional Appearance: She is obese. HENT Head: Normocephalic and atraumatic. Pulmonary Effort: Pulmonary effort is normal. Neurological General: No focal deficit present. Mental Status: She is alert. Psychiatric Mood and Affect: Mood normal. Behavior: Behavior normal. Thought Content: Thought content normal. Judgment: Judgment normal. ASSESSMENT / PLAN #1 Apnea Sleep Obstructive #2 Periodic Limb Movement Disorder #3 Fatigue Extreme #4 Diabetes Mellitus Type 2 With Diabetic Nephropathy (HCC) #5 Hypertension And Chronic Kidney Disease Stage 5 ([facility]) #6 Anemia Of Chronic Renal Disease #7 Dialysis Peritoneal Status ([facility]) Recommended we proceed with diagnostic sleep evaluation to assess severity of her sleep apnea now and determine whether this is a significant contributing factor in her ongoing problematic fatigue. We did discuss basic anatomy and physiology of obstructive sleep apnea in particular, as well as health and symptomatic ramifications associated with untreated SHAMIKA and CPAP as first line and gold standard treatment if indicated. She has some reservations about her ability to tolerate CPAP if found olga necessary, however after reviewing the significant improvement she had in sleep efficiency and architecture with CPAP intervention on PSG in the past as well as demonstrating what a few masks look like in office today, she was a bit more optimistic about this. Fortunately her sleep quality has subjectively improved with Mirapex, which I recommended she continue, although quantifying any residual PLM-related arousals will be helpful in regards to dose titration. She takes this at bedtime which works well for her, but could advance the timing of that dose to an hour or two before bedtime given somewhat delayed onset of action if needed in the future. We will proceed with iron studies today, as ferritin will likely not be a reliable indicator given her chronic conditions. Would aim for iron percent saturation greater than 20% while maintaining transferrin below 45% to minimize hepatic strain. We will see her back after her sleep study to discuss results and recommendations. The patient verbalized understanding of the plan of care and was in agreement. All questions were answered today. We will see her back after her sleep study documented in this encounter Plan of Treatment Upcoming Encounters Date Type Department Care Team (Latest Contact Info) Description 07/09/2023 8:20 AM RESEARCH AND DEVELOPMENT CHEMIST Appointment Department of Laboratory Medicine in [address] [phone] Allyn Alfredo M.D. [address] [place] [phone] 07/09/2023 9:15 AM RESEARCH AND DEVELOPMENT CHEMIST Office Visit Department of Family Medicine, [facility], in [address] [phone] Allyn Alfredo M.D. [address] [place] [phone] 07/16/2023 12:06 PM RESEARCH AND DEVELOPMENT CHEMIST Hospital Encounter Post Anesthesia Care Unit in [address] [phone] Cristhian Grant M.B., Ch.B., Ph.D. [address] [place] [phone] 07/16/2023 12:06 PM RESEARCH AND DEVELOPMENT CHEMIST - 07/16/2023 3:35 PM RESEARCH AND DEVELOPMENT CHEMIST Surgery [facility] MAIN OR [address] [place] [phone] Cristhian Grant M.B., Ch.B., Ph.D. [address] [place] [phone] CREATION FISTULA RADIOCEPHALIC ARTERIOVENOUS 07/20/2023 11:00 AM CDT Office Visit Department of Orthopedic Surgery in [address] [place] [phone] Cindy Walker D.P.M. [address] [place] [phone] Discharge Disposition: Home or Self Care 08/25/2023 3:15 PM CDT Telemedicine Department of Sleep Medicine in [place], [place] [address] [place] [phone] Emilee Emanuel APRN, Gabby.N.P., D.N.P., M.S.N. [address] [place] [phone] Scheduled Procedures Name Priority Associated Diagnoses Date/Ti me CREATION FISTULA RADIOCEPHALIC ARTERIOVENOUS Chronic Kidney Disease Stage 5 Glomerular 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) 07/16/2023 12:06 PM RESEARCH AND DEVELOPMENT CHEMIST CREATION FISTULA BRACHIOCEPHALIC ARTERIOVENOUS Chronic Kidney Disease Stage 5 Glomerular 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) 07/16/2023 12:06 PM RESEARCH AND DEVELOPMENT CHEMIST Scheduled Referrals Name Type Priority Associated Diagnoses Orde r Schedule Sleep Medicine office visit (clinic) Outpatient Referral Routine Expected: 03/29/2023, Expires: 04/28/2024 documented as of this encounter Results * Polysomnography (PSG): Split Night (02/04/2023 6:23 AM CDT) Narrative ONBASE - 02/24/2023 1:04 PM CDT SLEEP STUDY REPORT PRIMARY CARE PHYSICIAN: ??Allyn Alfredo M.D. REFERRING PROVIDER: ?? Emilee Emanuel APRN, C.N.P., D.N.P., M.S.N. [address] [place] [address], ??[place] [phone] HISTORY OF PRESENT ILLNESS The patient is [...] this polysomnogram Weight: ??90.0 kg BMI: ??34.3 ?Zumbrota: ? SLEEP STUDY REPORT: ??This routine split night polysomnogram was performed on [employer]ator[employer] using the standard diagnostic protocol outlined by the [place] [employer] . This included 6 channels of EEG, 2 channels of EOG, chin EMG, bilateral anterior tibialis EMG, nasal/oral thermister, PTAF (nasal pressure transducer), chest and abdominal wall movements, EKG rhythm strip, and pulse oximetry. The study was scored based upon [place] [employer] scoring guidelines in [...] results of sleep study. Tommie Decker M.D. Emilee Emanuel APRN, C.N.P., D.N.P., M.S. N. SLEEP CENTER ORDERABLES Performing Organization Address City/[facility] Co de Phone Number ONBASE NA * Transferrin (01/27/2023 3:55 PM CDT) Transferrin, S 218 200 - 360 mg/dL 01/27/2023 10:14 PM CDT [facility] Blood (Blood, Venous) 01/27/2023 3:55 PM CDT 01/27/2023 9:43 PM CDT Emilee Emanuel APRN C.N.P., D.N.P., M.S. N. LAB BLOOD ADD-ON [facility] [address] [place] [address], [place] [facility] - [address] [address] * Iron and Total Iron-Binding Capacity (01/27/2023 3:55 PM CDT) Pathologist [facility] Iron 83 35 - 145 mcg/dL 01/27/2023 10:07 PM CDT [facility] Total Iron Binding Capacity 257 250 - 400 mcg/dL 01/27/2023 10:14 PM CDT [facility] Percent Saturation 32 14 - 50 % 01/27/2023 10:14 PM CDT [facility] Blood (Blood, Venous) 01/27/2023 3:55 PM CDT 01/27/2023 9:43 PM CDT Gabby Orozco APRN.N.P., D.N.P., M.S. N. LAB BLOOD ADD-ON Performing Organization Address [facility] Co de Phone Number [facility] [address] [place] [address], [place] [facility] - [address] [address] * (ABNORMAL) Ferritin (01/27/2023 3:54 PM CDT) Pathologist [facility] Ferritin, S 1400(H) 11 - 328 mcg/L 01/27/2023 4:56 PM CDT [facility] Comment: Biotin has been identified by the farm management teacher as a potential interfering substance. Higher concentrations of biotin may be found in multivitamins, hair/nail supplements, and workout supplements. If the result does not match clinical observations, repeat testing after patient refrains from the use of supplements for at least 12 hours. Blood (Blood, Venous) 01/27/2023 3:54 PM CDT 01/27/2023 3:58 PM CDT Gabby Orozco APRN.N.P., D.N.P., M.S. N. LAB BLOOD ADD-ON Performing Organization Address City/[facility]/ZIP Co de Phone Number [facility] [address] [place] [address], [facility] [place] [facility] in [place] [address] [place] [address] documented in this encounter Visit Diagnoses Diagnosis Apnea Sleep Obstructive- Primary Fatigue Extreme Diabetes Mellitus Type 2 With Diabetic Nephropathy (HCC) Hypertension And Chronic Kidney Disease Stage 5 (HCC) Anemia Of Chronic Renal Disease Dialysis Peritoneal Status (HCC) Periodic Limb Movement Disorder Periodic Limb Movement Disorder Fatigue Extreme Apnea Sleep Obstructive Chronic Kidney Disease Stage 5 Glomerular 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) documented in this encounter Additional Health Concerns Assessment Noted Time PHQ-9 Depression Total Score: 5 06/25/19 16 1:22 PM RESEARCH AND DEVELOPMENT CHEMIST documented as of this encounter Care Teams Nurse School Relationship Specialty Start Date End Date Allyn Alfredo M.D. [address] [phone] PCP - General Family Medicine 04/05/21 documented as of this encounter
--- OUTSIDE RECORDS SUMMARY | 2023-06-24 18:15 | XMS_ITS | Encounter Summary ---
Author Name Unknown Organization [facility] Address [address] [place] [address] Care Team Providers Care Medical Sales Representative Name Role Phone Allyn Alfredo M.D. Primary Care Pro vider Encounter Details Date Type Department Care Team (Latest Contact Info) Description 02/22/2023 [facility]ake [facility] Social History Tobacco Use Types Packs/Day Years [...] How often do you attend chur or orthodoxy services? 1 to 4 times per year 09/11/2022 Do you belong to any clubs o r organizations such as adventist groups, unions, fraternal or athletic groups, or [...] 02/23/2023 [facility] ional [facility] - [...] Sex Assigned at Female 03/27/2017 3:30 PM SEAT MAKER Gender Identity Female 03/27/2017 3:30 PM SEAT MAKER Sexual Orientation Straight 03/27/2017 3: 30 PM SEAT MAKER documented as of this encounter Plan of Treatment Upcoming Encounters Date Type Department Care Team (Latest Contact Info) Description 07/09/2023 8:20 AM SEAT MAKER Appointment Department of Laboratory Medicine in [address] [phone] Allyn Alfredo M.D. [address] [place] [phone] 07/09/2023 9:15 AM SEAT MAKER Office Visit Department of Family Medicine, [facility], in [address] [phone] Allyn Alfredo M.D. [address] [place] [address] [phone] 07/16/2023 12:06 PM SEAT MAKER Hospital Encounter Post Anesthesia Care Unit in [place] [id number] [place] [phone] Cristhian Grant M.B., Ch.B., Ph.D. [address] [place] [phone] 07/16/2023 12:06 PM SEAT MAKER - 07/16/2023 3:35 PM SEAT MAKER Surgery RST ROMB MAIN OR [address] [place] [phone] Cristhian Grant M.B., Ch.B., Ph.D. [address] [place] [phone] CREATION FISTULA RADIOCEPHALIC ARTERIOVENOUS 07/20/2023 11:00 AM CDT Office Visit Department of Orthopedic Surgery in [address] [phone] Cindy [place] D.PLeidaMLeida [address] [place] [phone] Discharge Disposition: Home or Self Care 08/25/2023 3:15 PM CDT Telemedicine Department of Sleep Medicine in [place], [place] [address] [place] [phone] Emilee Emanuel APRN, C.N.P., D.N.P., M.S.N. [address] [address] Scheduled Procedures Name Priority Associated Diagnoses Date/Ti me CREATION FISTULA RADIOCEPHALIC ARTERIOVENOUS Chronic Kidney Disease Stage 5 Glomerular 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) 07/16/2023 12:06 PM SEAT MAKER CREATION FISTULA BRACHIOCEPHALIC ARTERIOVENOUS Chronic Kidney Disease Stage 5 Glomerular 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) 07/16/2023 12:06 PM SEAT MAKER documented as of this encounter Visit Diagnoses Not on filedocumented in this encounter Additional Health Concerns Infection Onset Date Last Indicated Resolved Time COVID19 Pending 02/22/2023 02/22/2023 02/22/2023 8 :36 PM CDT Assessment Noted Time PHQ-9 Depression Total Score: 5 06/25/19 16 1:22 PM SEAT MAKER documented as of this encounter Care Teams Medical Sales Representative Relationship Specialty Start Date End Date Allyn Alfredo M.D. [address] [phone] PCP - General Family Medicine 04/05/21 documented as of this encounter
--- OUTSIDE RECORDS SUMMARY | 2023-06-24 18:15 | XMS_ITS | Encounter Summary ---
Author Name Unknown Organization [facility] Address [address] [place] [address] Care Team Providers Care Tooth Inspector Name Role Phone Allyn Alfredo M.D. Primary Care Pro vider Encounter Details Date Type Department Care Team (Latest Contact Info) Description 01/08/2023 12:00 PM CDT - 01/08/2023 12:09 PM CDT Hospital Encounter Department of Laboratory Medicine in [address] [phone] Allyn Alfredo M.D. [address] [place] [phone] Diabetes Mellitus Type 2 With Diabetic Nephropathy [...] often do you attend chur ch or moravian services? 1 to 4 times per year [...] Answer Date Recorded PHQ-2 Score 0 07/25/2022 [facility] of Occupat ional Health - Occupational Stress [...] in a snf (including now)? No 09/11/2022 Nutrition Answer Date [...] Sex Assigned at Female 03/27/2017 3:30 PM RN LICENSED PRACTICAL Gender Identity Female 03/27/2017 3:30 PM RN LICENSED PRACTICAL Sexual Orientation Straight 03/27/2017 3: 30 PM RN LICENSED PRACTICAL documented as of this encounter Medications at Time of Discharge Medication Sig Dispensed Refills Start Date End Date aspirin [address] tablet Take 1 tablet by mouth daily. 0 BD Ultra-Fine Short Pen Needle 31 gauge x 5/16 needle Inject 4 Injection under the skin daily. 400 each 3 12/25/2022 blood-glucose meter,continuous (Dexcom G7 Pelletizer Operator) misc Use as directed 3 (three) [...] BEDTIME FOR CHOLESTEROL 90 tablet 3 01/01/2023 cephalexin (KEFLEX) 500 mg capsule Take 1 capsule (500 mg total) by mouth every 12 (twelve) hours for 10 days. 20 capsule 0 12/30/2022 01/09/2023 allopurinoL (ZYLOPRIM) 100 mg tablet TAKE 1 TABLET DAILY 90 tablet 3 04/08/2022 05/19/2023 amLODIPine (NORVASC) 5 mg tablet TAKE 1 TABLET DAILY 90 tablet 3 01/07/2023 03/01/2023 blood-glucose sensor (Dexcom G6 Sensor) device CHANGE EVERY 10 DAYS 9 each 2 07/21/2022 01/09/2023 blood-glucose transmitter (Dexcom G6 Transmitter) device REPLACE EVERY 3 MONTHS 1 each 3 07/29/2022 01/09/2023 gabapentin (NEURONTIN) 100 mg capsule Take 1 capsule (100 mg total) by mouth at bedtime. Restless leg syndrome 90 capsule 3 12/30/2022 02/03/2023 gentamicin sulfate 1.2 g sterile powder Apply [...] by mouth at bedtime. 90 tablet 3 12/30/2022 02/03/2023 sevelamer (RENVELA) 800 mg tablet Take 2 tablets (1,600 mg total) by mouth 3 (three) times a day with meals. 540 tablet 3 07/02/2021 02/23/2023 torsemide (DEMADEX) 5 mg tablet Take 1.5 tablets (7.5 mg total) by mouth 2 (two) times a day with meals. 270 tablet 3 04/06/2021 03/01/2023 documented as of this encounter Plan of Treatment Upcoming Encounters Date Type Department Care Team (Latest Contact Info) Description 07/09/2023 8:20 AM RN LICENSED PRACTICAL Appointment Department of Laboratory Medicine in [address] [phone] Allyn Alfredo M.D. [address] [place] [phone] 07/09/2023 9:15 AM RN LICENSED PRACTICAL Office Visit Department of Family Medicine, [facility], in [address] [phone] Allyn Alfredo M.D. [address] [place] [phone] 07/16/2023 12:06 PM RN LICENSED PRACTICAL Hospital Encounter Post Anesthesia Care Unit in [place], [place] [address] [place] [phone] Cristhian Grant M.B., Ch.B., Ph.D. 200 [place] [phone] 07/16/2023 12:06 PM RN LICENSED PRACTICAL - 07/16/2023 3:35 PM RN LICENSED PRACTICAL Surgery RST ROMB MAIN OR [address] [place] [phone] Cristhian Grant M.B., Ch.B., Ph.D. 200 [place] [phone] CREATION FISTULA RADIOCEPHALIC ARTERIOVENOUS 07/20/2023 11:00 AM CDT Office Visit Department of Orthopedic Surgery in [address] [phone] Cindy [place] D.PLeidaMLeida [address] [place] [phone] Discharge Disposition: Home or Self Care 08/25/2023 3:15 PM CDT Telemedicine Department of Sleep Medicine in [place], [place] [address] [phone] Emilee Emanuel APRN, C.N.P., D.N.P., M.S.N. [address] [phone] Scheduled Procedures Name Priority Associated Diagnoses Date/Ti me CREATION FISTULA RADIOCEPHALIC ARTERIOVENOUS Chronic Kidney Disease Stage 5 Glomerular 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) 07/16/2023 12:06 PM RN LICENSED PRACTICAL CREATION FISTULA BRACHIOCEPHALIC ARTERIOVENOUS Chronic Kidney Disease Stage 5 Glomerular 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) 07/16/2023 12:06 PM RN LICENSED PRACTICAL documented as of this encounter Procedures Procedure Name Priority Date/Time Associated Diagnosis Comments ALBUMIN, RANDOM, U Routine 01/08/2023 12 :27 PM CDT Diabetes Mellitus Type 2 With Diabetic Nephropathy (HCC) documented in this encounter Results * (ABNORMAL) Albumin, Random, Urine (01/08/2023 12:27 PM CDT) Microalbumin 890.9 mg/L 01/08/2023 1:09 PM CDT CNFL Creatinine 145 mg/dL 01/08/2023 12:49 PM CDT CNFL Albumin/Creatinin e Ratio 614(H) <25 mg/g 01/08/2023 1:09 PM CDT CNFL Urine (Urine, Midstream) 01/08/2023 12:27 PM CDT 01/08/2023 12:36 PM CDT Allyn Ryan M.D. LAB URINE ORDERABLES Performing Organization Address [facility] Co de Phone Number [facility] [address] [place] [address], [facility] in [address] [address] documented in this encounter Visit Diagnoses Diagnosis Diabetes Mellitus Type 2 With Diabetic Nephropathy (HCC) Chronic Kidney Disease Stage 5 Glomerular 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) documented in this encounter Additional Health Concerns Assessment Noted Time PHQ-9 Depression Total Score: 5 06/25/19 16 1:22 PM RN LICENSED PRACTICAL documented as of this encounter Care Teams Tooth Inspector Relationship Specialty Start Date End Date Allyn Alfredo M.D. [address] [place] [phone] PCP - General Family Medicine 04/05/21 documented as of this encounter
--- OUTSIDE RECORDS SUMMARY | 2023-06-24 18:15 | XMS_ITS | Encounter Summary ---
Author Name Unknown Organization [facility] Address [address] [place] [address] Care Team Providers Care Equipment Service Technician Name Role Phone Allyn Alfredo M.D. Primary Care Pro vider Encounter Details Date Type Department Care Team (Late st Contact Info) Description 01/14/2023 Documentation Division of Nephrology and Hypertension in [place], [place] [address] [place] [phone] Wilfrid Lincoln Jr., D.O. [address] [place] [phone] Social History Tobacco Use Types Packs/Day Years [...] How often do you attend chur or jehovah's witness services? 1 to 4 times per year [...] Answer Date Recorded PHQ-2 Score 0 07/25/2022 [facility] of Occupat ional [...] Assigned at Female 03/27/2017 3:30 PM SUPERVISOR SPEECH Gender Identity Female 03/27/2017 3:30 PM SUPERVISOR SPEECH Sexual Orientation Straight 03/27/2017 3: 30 PM SUPERVISOR SPEECH documented as of this encounter Progress Notes * Wilfrid Lincoln Jr., D.O. - 01/14/2023 7:44 AM CDT Care coordination documentation: Communication with her daughter: Radha Her back pain is a major issue, and frustrating, [facility] I am anxious to see the outcomes of her sleep eval., coming up I think, correct? Noted that the labs look OK from the dialysis, and we can reassess the adequacy of her therapy. Appreciate the attention as well on her diabetes/food choices. Thanks DR Luis Enrique Lincoln Jr, DO., Regional Count Team Member [facility], Professor ofMedicine, Food Adviser: Division of Nephrology and Hypertension, , , email: [email or web address] -----Original Message----- From: Radha <[email or web address]> Sent: Saturday, January 14, 2023 7:33 AM To: Wilfrid Lincoln Jr., D.O. <[email or web address]> Subject: [EXTERNAL] Re: Concetta medina Good morning Dr. Lincoln, I wanted to give you an update on my mom. We have started contacting some agencies and I am waitingon a callback from Emilee. Yesterday, my brother and I took off work we spent seven hours cleaning my mom's house which we still aren't done and we threw out five garbage bags of food, but spending all day with her. I can see she is not well. She is in a lot of pain with her back which I had her contact, her doctor and try and set up an appointment to see him again but she just has no energy. She said she is sleeping better now that she is off the gabapentin. I feel that something just isn't right and not sure is it just her not eating or or her kidneys? Failing her that bad that this is gonnabe her life? Sorry to bother you with all these questions but I'm at a loss what to do for my mother? Thank you Radha medina Sent from my iPad > On Jan 12, 2023, at 6:56 PM, Wilfrid Lincoln Jr., D.O. <[email or web address]> wrote: > > ?Dear Radha > Thanks for the note. I think Michaela Wahl social media community manager can help with some resources toconsider. Another resource may be the [facility] team. Dr Delatorre is a terrific family physician snd may have ideas as well. > I usually point towards ? health finders? as well. > Best > Dr Dudley > > > Sent from my iPhone > >> On Jan 12, 2023, at 6:00 PM, Radha <[email or web address]> wrote: >> >> ?Hi Dr. Lincoln, >> I am very concerned about my mom and her health. She is not doing well and I had a long conversation with her tonight about it . I think she realizes she is not doing what she is suppose to and reminded her about 3 strikes and and she is out. And that if she doesn't do her part in this shewill be moved out of her house because I can't keep trying to help her and if she's not helping herself. I've mentioned some resources to her over the past about somebody coming in and helping her that may be insurance can cover. She is going to contact the social media community manager tomorrow but if you can help with any insight on that that would be greatly appreciated. I will be at my mom's next doctors appointment, so if there's some things that you can add to what I've told you that would be also greatly appreciated. >> Thank you >> Radha maddena >> >> Sent from my iPad documented in this encounter Plan of Treatment Upcoming Encounters Date Type Department Care Team (Latest Contact Info) Description 07/09/2023 8:20 AM SUPERVISOR SPEECH Appointment Department of Laboratory Medicine in [address] [phone] Allyn Alfredo M.D. [address] [place] [phone] 07/09/2023 9:15 AM SUPERVISOR SPEECH Office Visit Department of Family Medicine, [facility], in [address] [phone] Allyn Alfredo M.D. [address] [place] [phone] 07/16/2023 12:06 PM SUPERVISOR SPEECH Hospital Encounter Post Anesthesia Care Unit in [address] [phone] Cristhian Grant M.B., Ch.B., Ph.D. [address] [place] [phone] 07/16/2023 12:06 PM SUPERVISOR SPEECH - 07/16/2023 3:35 PM SUPERVISOR SPEECH Surgery RST ROMB MAIN OR [facility] [place] [phone] Cristhian Grant M.B., Ch.B., Ph.D. [address] [place] [phone] CREATION FISTULA RADIOCEPHALIC ARTERIOVENOUS 07/20/2023 11:00 AM CDT Office Visit Department of Orthopedic Surgery in [address] [phone] Cindy [place] D.PLeidaMLeida [address] [place] [phone] Discharge Disposition: Home or Self Care 08/25/2023 3:15 PM CDT Telemedicine Department of Sleep Medicine in [place], [place] [address] [place] [phone] Emilee Emanuel APRN, C.N.P., D.N.P., M.S.N. [address] [place] [phone] Scheduled Procedures Name Priority Associated Diagnoses Date/Ti me CREATION FISTULA RADIOCEPHALIC ARTERIOVENOUS Chronic Kidney Disease Stage 5 Glomerular 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) 07/16/2023 12:06 PM SUPERVISOR SPEECH CREATION FISTULA BRACHIOCEPHALIC ARTERIOVENOUS Chronic Kidney Disease Stage 5 Glomerular Filtration Rate Less Than 15 (HCC) 07/16/2023 12:06 PM SUPERVISOR SPEECH documented as of this encounter Visit Diagnoses Not on filedocumented in this encounter Additional Health Concerns Assessment Noted Time PHQ-9 Depression Total Score: 5 06/25/19 16 1:22 PM SUPERVISOR SPEECH documented as of this encounter Care Teams Equipment Service Technician Relationship Specialty Start Date End Date Allyn Alfredo M.D. [address] [phone] PCP - General Family Medicine 04/05/21 documented as of this encounter
--- OUTSIDE RECORDS SUMMARY | 2023-06-24 18:15 | XMS_ITS | Encounter Summary ---
Author Name Unknown Organization [facility] Address [address] [place] [address] Care Team Providers Care Geospatial Extractor Analysis Name Role Phone Allyn Alfredo M.D. Primary Care Pro vider Encounter Details Date Type Department Care Team (Late st Contact Info) Description 02/03/2023 Documentation Division of Nephrology and Hypertension in [place], [place] [address] [place] [phone] Wilfrid Lincoln Jr., D.O. [address] [place] [phone] Social History Tobacco Use Types Packs/Day Years [...] any clubs o r organizations such as rastafarian groups, unions, fraternal or athletic groups, or [...] Answer Date Recorded PHQ-2 Score 0 07/25/2022 [facility] of Occupat ional Health [...] a senior care (including now)? No 09/11/2022 Nutrition Answer Date [...] Sex Assigned at Female 03/27/2017 3:30 PM TIRE GROOVER Gender Identity Female 03/27/2017 3:30 PM TIRE GROOVER Sexual Orientation Straight 03/27/2017 3: 30 PM TIRE GROOVER documented as of this encounter Progress Notes * Wilfrid Lincoln Jr., D.O. - 02/03/2023 1:39 PM CDT Care coordination- peritoneal dialysis note: Please see the documents viewer tab regarding the [facility] comprehensive peritoneal dialysis [facility] from today. We met her today along with our entire care team, and her daughter and son. We went through the matters which are still problematic for her, which center around 2 major issues, her overwhelming fatigue, and her back pain. She has been offered a new procedure by the [facility] group, which involves placement of a disc. She is still struggling with severe low back pain. Additionally, her profound fatigue is not substantially better from last month. Appreciate that sheis having her incenter sleep study this evening, she has documented sleep apnea from previous. 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 Her blood pressure has been adequate, her hemoglobin is between 9.9 and 10.2, checked twice this past month. Her iron stores are acceptable. From an adequacy perspective her KT/V over V was 1.6. This is slightly below target, and we responded to this by increasing the volume of her fills, and a new adequacy was sent today. With the increase in dialysis delivery which has been in place for roughly 10 days she is not noticed any substantial difference. We have cut back on the gabapentin down to 100 mg at bedtime, and added Mirapex 0.125 mg at bedtime. Her restless legs/neuropathic symptoms have resolved. We are going to stop the gabapentin. She is not short of breath she has had no chest pain I appreciate that her echocardiogram was normal. We have reviewed her medication list, and confirmed her nutritional aspect. Approximately an hour was spent with the dietitian and the patient as well as her son and daughter outlining a very deliberate meal planning system with them. Is become apparent as well that the patient is struggling to care for herself at home, and now has a pediatric immunologist to help with cleaning up. The family is concerned regarding her ability to orchestrateall of her affairs. We discussed that perhaps [facility]. We will move ahead with a sleep study, we will discontinue gabapentin, and we will check in with her through the upcoming month and make the decision as to whether she needs to switch modalities. Other alternatives to consider would be psychometric testing, regards neurodegenerative processes, an evaluation for occult malignancies and ultimately vegetative depression. We will also follow-up on the ultimate recommendations of her spine group. documented in this encounter Plan of Treatment Upcoming Encounters Date Type Department Care Team (Latest Contact Info) Description 07/09/2023 8:20 AM TIRE GROOVER Appointment Department of Laboratory Medicine in [address] [phone] Allyn Alfredo M.D. [address] [place] [phone] 07/09/2023 9:15 AM TIRE GROOVER Office Visit Department of Family Medicine, [facility], in [address] [phone] Allyn Alfredo M.D. [address] [place] [phone] 07/16/2023 12:06 PM TIRE GROOVER Hospital Encounter Post Anesthesia Care Unit in [address] [phone] Cristhian Grant M.B., Ch.B., Ph.D. [address] [place] [phone] 07/16/2023 12:06 PM TIRE GROOVER - 07/16/2023 3:35 PM TIRE GROOVER Surgery RST ROMB MAIN OR [address] [place] [phone] Cristhian Grant M.B., Ch.B., Ph.D. [address] [place] [phone] CREATION FISTULA RADIOCEPHALIC ARTERIOVENOUS 07/20/2023 11:00 AM CDT Office Visit Department of Orthopedic Surgery in [address] [phone] Cindy [place] D.P.M. [address] [place] [phone] Discharge Disposition: Home or Self Care 08/25/2023 3:15 PM CDT Telemedicine Department of Sleep Medicine in [place], [place] [address] [place] [phone] Emilee Emanuel APRN, C.N.P., D.N.P., M.S.N. [address] [place] [phone] Scheduled Procedures Name Priority Associated Diagnoses Date/Ti me CREATION FISTULA RADIOCEPHALIC ARTERIOVENOUS Chronic Kidney Disease Stage 5 Glomerular Filtration Rate Less Than 15 (HCC) 07/16/2023 12:06 PM TIRE GROOVER CREATION FISTULA BRACHIOCEPHALIC ARTERIOVENOUS Chronic Kidney Disease Stage 5 Glomerular Filtration Rate Less Than 15 (HCC) 07/16/2023 12:06 PM TIRE GROOVER documented as of this encounter Visit Diagnoses Not on filedocumented in this encounter Additional Health Concerns Assessment Noted Time PHQ-9 Depression Total Score: 5 06/25/19 16 1:22 PM TIRE GROOVER documented as of this encounter Care Teams Geospatial Extractor Analysis Relationship Specialty Start Date End Date Allyn Alfredo M.D. NPBostno: [id number] [phone] PCP - General Family Medicine 04/05/21 documented as of this encounter
--- OUTSIDE RECORDS SUMMARY | 2023-06-24 18:15 | XMS_ITS | Encounter Summary ---
Author Name Unknown Organization [facility] Address [address] [place] [address] Care Team Providers Care Electronic Plotting System Operator Name Role Phone Allyn Alfredo M.D. Primary Care Pro vider Reason for Referral * Outpatient (Routine) - Closed Specialty Diagnoses / Procedures Referred By Esther zamorano Referred To Contact Diagnoses Hypertension And Chronic Kidney Disease Stage 5 (HCC) Anemia Of Chronic Renal Disease Diabetes Mellitus Type 2 With Diabetic Nephropathy (HCC) Periodic Limb Movement Disorder Dialysis Peritoneal Status (HCC) Fatigue Extreme Procedures Echo Transthoracic (TTE) Wilfrid Lincoln Jr., D.OLeida [address] [place] [address] [facility] Region Referral ID Status Reason Start Date Expiration Date Visits Re quested Visits Authorized [id number] Closed 11/04/2022 11/04/2023 1 1 Reason for Visit * Outpatient (Routine) - Closed Specialty Diagnoses / Procedures Referred By Esther zamorano Referred To Contact Diagnoses Hypertension And Chronic Kidney Disease Stage 5 (HCC) Anemia Of Chronic Renal Disease Diabetes Mellitus Type 2 With Diabetic Nephropathy (HCC) Periodic Limb Movement Disorder Dialysis Peritoneal Status (HCC) Fatigue Extreme Procedures Echo Transthoracic (TTE) Wilfrid Lincoln [place]., [place] [address] [facility] Region Referral ID Status Reason Start Date Expiration Date Visits Re quested Visits Authorized [id number] Closed 11/04/2022 11/04/2023 1 1 Encounter Details Date Type Department Care Team (Latest Contact Info) Description 01/16/2023 12:16 PM CDT - 01/16/2023 11:59 PM CDT Hospital Encounter Department of Cardiovascular Diseases in [place], [place] [address] [place] [phone] Wilfrid Lincoln Jr., D.O. [address] [place] [address] Hypertension And Chronic Kidney Disease Stage 5 (HCC); Anemia Of Chronic Renal Disease; Diabetes Mellitus Type 2 With Diabetic Nephropathy (HCC); Periodic Limb Movement Disorder; Dialysis Peritoneal Status (HCC); Fatigue Extreme Discharge Disposition: Home or Self Care Social [...] often do you attend chur ch or mormonism services? 1 to 4 times per year 09/11/2022 Do you belong to any clubs o r organizations such as quaker groups, unions, fraternal or athletic groups, or [...] Answer Date Recorded PHQ-2 Score 0 07/25/2022 [facility] of Occupat ional [facility] - Occupational Stress Questionnaire Answer Date [...] a nursing home (including now)? No 09/11/2022 Nutrition Answer Date [...] Sex Assigned at Female 03/27/2017 3:30 PM ELECTRIC RAZOR MECHANIC Gender Identity Female 03/27/2017 3:30 PM ELECTRIC RAZOR MECHANIC Sexual Orientation Straight 03/27/2017 3: 30 PM ELECTRIC RAZOR MECHANIC documented as of this encounter Medications at Time of Discharge Medication Sig Dispensed Refills Start Date End Date aspirin [address] tablet Take 1 tablet by mouth daily. 0 BD Ultra-Fine Short Pen Needle 31 gauge x 5/16 needle Inject 4 Injection under the skin daily. 400 each 3 12/25/2022 blood-glucose meter,continuous (Dexcom G7 [employer] Teacher Librarian) misc Use as directed 3 (three) times [...] TABLET DAILY 90 tablet 3 01/07/2023 03/01/2023 gabapentin (NEURONTIN) 100 mg capsule Take 1 [...] (Latest Contact Info) Description 07/09/2023 8:20 AM ELECTRIC RAZOR MECHANIC Appointment Department of Laboratory Medicine in [address] [phone] Allyn Alfredo M.D. [address] [place] [phone] 07/09/2023 9:15 AM ELECTRIC RAZOR MECHANIC Office Visit Department of Family Medicine, [facility], in [address] [phone] Allyn Alfredo M.D. [address] [place] [phone] 07/16/2023 12:06 PM ELECTRIC RAZOR MECHANIC Hospital Encounter Post Anesthesia Care Unit in [address] [phone] Cristhian Grant M.B., Ch.B., Ph.D. [address] [place] [phone] 07/16/2023 12:06 PM ELECTRIC RAZOR MECHANIC - 07/16/2023 3:35 PM ELECTRIC RAZOR MECHANIC Surgery [facility] MAIN OR [address] [place] [phone] Cristhian Grant M.B., Ch.B., Ph.D. [address] [place] [phone] CREATION FISTULA RADIOCEPHALIC ARTERIOVENOUS 07/20/2023 11:00 AM CDT Office Visit Department of Orthopedic Surgery in [address] [phone] Cindy Walker D.PAv [address] [facility] [place] [phone] Discharge Disposition: Home or Self Care 08/25/2023 3:15 PM CDT Telemedicine Department of Sleep Medicine in [place], [place] [address], [place] [address] Emilee Emanuel APRN, C.N.P., D.N.P., M.S.N. [address], [place] [phone] Scheduled Procedures Name Priority Associated Diagnoses Date/Ti me CREATION FISTULA RADIOCEPHALIC ARTERIOVENOUS Chronic Kidney Disease Stage 5 Glomerular Filtration Rate Less Than 15 (HCC) 07/16/2023 12:06 PM ELECTRIC RAZOR MECHANIC CREATION FISTULA BRACHIOCEPHALIC ARTERIOVENOUS Chronic Kidney Disease Stage 5 Glomerular Filtration Rate Less Than 15 (HCC) 07/16/2023 12:06 PM ELECTRIC RAZOR MECHANIC documented as of this encounter Procedures Procedure Name Priority Date/Time Associated Diagnosis Comments (TTE) 2D ECHO DOPPLER COLOR Routine 01/16/2023 12:59 PM CDT Hypertension And Chronic Kidney Disease Stage 5 (HCC) Anemia Of Chronic Renal Disease Diabetes Mellitus Type 2 With Diabetic Nephropathy (HCC) Periodic Limb Movement Disorder Dialysis Peritoneal Status (HCC) Fatigue Extreme documented in this encounter Results * (TTE) 2D ECHO DOPPLER COLOR (01/16/2023 12:59 PM CDT) Ejection Fraction 66 MC CV EIMS Sinus of Valsalva 29 MC CV EIMS Mid-Ascending Aorta 30 MC CV EIMS LV Mass Index 97 MC CV EIMS LV End-Diastolic Diameter 49 MC CV EIMS LV End-Systolic Diameter 30 MC CV EIMS MV E Velocity 0.8 MC CV EIMS MV A Velocity 1.2 MC CV EIMS MV E/A 0.67 MC CV EIMS MV e' Velocity Medial 0.07 MC CV EIMS MV e' Velocity Lateral 0.07 MC CV EIMS MV E/e' Medial 11.4 MC CV EIMS MV E/e' Lateral 11.4 MC CV EIMS Left ventricular stroke volume index 43 MC CV EIMS Cardiac Output 5.82 MC CV EIMS Cardiac Index 3 MC CV EIMS LV Interventricular Septal Wall Thickness 12 MC CV EIMS LV Posterior Wall Thickness 9 MC CV EIMS LV Relative Wall Thickness 37 MC CV EIMS Tricuspid Annular S? 0.15 MC CV EIMS TR Vmax 2.4 MC CV EIMS RA Pressure 5 MC CV EIMS RV Systolic Pressure 28 MC CV EIMS Aortic valve area 2.6 MC CV EIMS Aortic Valve Dimensionless Index 0.75 MC CV EIMS MV mean gradient 2 MC CV EIMS LA Volume Index 27 MC CV EIMS Aortic Valve Systolic Peak Velocity 1.6 MC CV EIMS Anatomical Region Laterality Modality Echocardiography 01/16/2023 12:2 0 PM CDT Impressions 01/16/2023 2:00 PM CDT Transthoracic outreach echo interpretation. LEFT VENTRICLE:Normal left ventricular chamber size. Sigmoid ventricular septum with basal septal prominence: 15 mm Calculated 2-D linear left ventricular ejection fraction 66%. Left ventricular volumes were performed but not reported based on skin peeling machine operator's judgment. No regional wall motion abnormalities. Grade 1/3 left ventricular diastolic dysfunction, consistent with low to normal left ventricular filling pressure at rest. RIGHT VENTRICLE:Normal right ventricular chamber size by visual estimate. Normal right ventricular systolic function. Estimated right ventricular systolic pressure 28 mmHg (right atrial pressure of 5 mmHg). ATRIA:Normal left atrial size. Left atrial volume index 27 ml/m2. Normal right atrial size by visual estimate. CARDIAC VALVES:No ??significant valvular heart disease. Trileaflet aortic valve. Thickened aortic valve. Trivial aortic valve regurgitation. Mildly thickened mitral valve. Calcified mitral annulus. Mitral valve diastolic mean Doppler gradient 2 mmHg (heart rate 70 BPM). Trivial mitral valve regurgitation. Normal pulmonary valve. Normal pulmonary valve systolic velocities. Trivial pulmonary valve regurgitation. Normal tricuspid valve. Trivial tricuspid valve regurgitation. OTHER ECHO FINDINGS:Normal inferior vena cava size with normal inspiratory collapse (>50%). Normal sinus of Valsalva diameter of 29 mm. Normal mid ascending aorta diameter of 30 mm. Abdominal aorta not visualized. No atrial level shunt by color flow imaging. No intracardiac mass or thrombus, but the left atrial appendage cannot be visualized adequately with transthoracic echo to exclude thrombus in this location. No ??pericardial effusion. Prominent anterior epicardial fat layer. For the complete report, see the Order-Level Documents. Narrative 01/16/2023 2:00 PM CDT For the complete report, see the Order-Level Documents. Hemodynamics Heart Rate: 70 BPM Blood Pressure: 126 / 74 mmHg ECG: Sinus rhythm Final Impressions 1. Normal left ventricular chamber size, no regional wall motion abnormalities, calculated 2-D linear ejection fraction 66%. 2. Sigmoid ventricular septum with basal septal prominence: 15 mm. No GENEVIEVE and no dynamic obstruction. 3. Normal right ventricular chamber size, normal systolic function, estimated right ventricular systolic pressure 28 mmHg (right atrial pressure of 5 mmHg). 4. Thickened aortic valve cusps. Trivial aortic regurgitation. Procedure Note Yuri Mercer M.D. - 01/16/2023 For the complete report, see the Order-Level Documents. Hemodynamics Heart Rate: 70 BPM Blood Pressure: 126 / 74 mmHg ECG: Sinus rhythm Final Impressions 1. Normal left ventricular chamber size, no regional wall motionabnormalities, calculated 2-D linear ejection fraction 66%. 2. Sigmoid ventricular septum with basal septal prominence: 15 mm. No SAMand no dynamic obstruction. 3. Normal right ventricular chamber size, normal systolic function,estimated right ventricular systolic pressure 28 mmHg (right atrialpressure of 5 mmHg). 4. Thickened aortic valve cusps. Trivial aortic regurgitation. Findings Transthoracic outreach echo interpretation. LEFT VENTRICLE:Normal left ventricular chamber size. Sigmoid ventricularseptum with basal septal prominence: 15 mm Calculated 2-D linear leftventricular ejection fraction 66%. Left ventricular volumes were performedbut not reported based on skin peeling machine operator's judgment. No regional wall motionabnormalities. Grade 1/3 left ventricular diastolic dysfunction,consistent with low to normal left ventricular filling pressure at rest. RIGHT VENTRICLE:Normal right ventricular chamber size by visual estimate.Normal right ventricular systolic function. Estimated right ventricularsystolic pressure 28 mmHg (right atrial pressure of 5 mmHg). ATRIA:Normal left atrial size. Left atrial volume index 27 ml/m2. Normalright atrial size by visual estimate. CARDIAC VALVES:No significant valvular heart disease. Trileaflet aorticvalve. Thickened aortic valve. Trivial aortic valve regurgitation. Mildlythickened mitral valve. Calcified mitral annulus. Mitral valve diastolicmean Doppler gradient 2 mmHg (heart rate 70 BPM). Trivial mitral valveregurgitation. Normal pulmonary valve. Normal pulmonary valve systolicvelocities. Trivial pulmonary valve regurgitation. Normal tricuspid valve.Trivial tricuspid valve regurgitation. OTHER ECHO FINDINGS:Normal inferior vena cava size with normal inspiratorycollapse (>50%). Normal sinus of Valsalva diameter of 29 mm. Normal midascending aorta diameter of 30 mm. Abdominal aorta not visualized. Noatrial level shunt by color flow imaging. No intracardiac mass orthrombus, but the left atrial appendage cannot be visualized adequatelywith transthoracic echo to exclude thrombus in this location. Nopericardial effusion. Prominent anterior epicardial fat layer. For the complete report, see the Order-Level Documents. Wilfrid [place] Jr., D.O. CV ECHO PROC EDURES documented in this encounter Visit Diagnoses Diagnosis Hypertension And Chronic Kidney Disease Stage 5 (HCC) Anemia Of Chronic Renal Disease Diabetes Mellitus Type 2 With Diabetic Nephropathy (HCC) Periodic Limb Movement Disorder Dialysis Peritoneal Status (HCC) Fatigue Extreme Chronic Kidney Disease Stage 5 Glomerular Filtration Rate Less Than 15 (HCC) documented in this encounter Additional Health Concerns Assessment Noted Time PHQ-9 Depression Total Score: 5 06/25/19 16 1:22 PM ELECTRIC RAZOR MECHANIC documented as of this encounter Care Teams Electronic Plotting System Operator Relationship Specialty Start Date End Date Allyn Alfredo M.D. [id number] [phone] PCP - General Family Medicine 04/05/21 documented as of this encounter
--- OUTSIDE RECORDS SUMMARY | 2023-06-24 18:15 | XMS_ITS | Encounter Summary ---
Author Name Unknown Organization [facility] Address [address] [place] [address] Care Team Providers Care Account Auditor Name Role Phone Allyn Alfredo M.D. Primary Care Pro vider Encounter Details Date Type Department Care Team (Latest Contact Info) Description 01/27/2023 3:38 PM CDT - 01/27/2023 11:59 PM CDT Hospital Encounter Department of Laboratory Medicine in [place], [place] [address] [place] [phone] Emilee Emanuel APRN, C.N.P., D.N.P., M.S.N. [address] [place] [phone] Periodic Limb Movement Disorder Discharge Disposition: Home or Self Care Social [...] any clubs o r organizations such as jain groups, unions, fraternal or athletic groups, or [...] Answer Date Recorded PHQ-2 Score 0 07/25/2022 [facility] of Occupat ional Health - Occupational Stress [...] in a half-way (including now)? No 09/11/2022 Nutrition Answer Date [...] Sex Assigned at Female 03/27/2017 3:30 PM PEDIATRIC DENTAL ASSISTANT Gender Identity Female 03/27/2017 3:30 PM PEDIATRIC DENTAL ASSISTANT Sexual Orientation Straight 03/27/2017 3: 30 PM PEDIATRIC DENTAL ASSISTANT documented as of this encounter Medications at Time of Discharge Medication Sig Dispensed Refills Start Date End Date aspirin [address] tablet Take 1 tablet by mouth daily. 0 BD Ultra-Fine Short Pen Needle 31 gauge x 5/16 needle Inject 4 Injection under the skin daily. 400 each 3 12/25/2022 blood-glucose meter,continuous (Dexcom G7 [employer]) misc Use as directed 3 (three) times [...] sleep study in the presence of the optical manufacturing technician. 1 tablet 0 01/27/2023 02/23/2023 documented as of this encounter Plan of Treatment Upcoming Encounters Date Type Department Care Team (Latest Contact Info) Description 07/09/2023 8:20 AM PEDIATRIC DENTAL ASSISTANT Appointment Department of Laboratory Medicine in [address] [phone] [place] Allyn Ryan M.D. [address] [place] [phone] 07/09/2023 9:15 AM PEDIATRIC DENTAL ASSISTANT Office Visit Department of Family Medicine, [facility], in [address] [phone] Allyn Alfredo M.D. [address] [place] [phone] 07/16/2023 12:06 PM PEDIATRIC DENTAL ASSISTANT Hospital Encounter Post Anesthesia Care Unit in [place], [place] [address] [place] [phone] Cristhian Grant M.B., Ch.B., Ph.D. [address] [place] [phone] 07/16/2023 12:06 PM PEDIATRIC DENTAL ASSISTANT - 07/16/2023 3:35 PM PEDIATRIC DENTAL ASSISTANT Surgery [facility] MAIN OR [address] [place] [phone] Cristhian Grant M.B., Ch.B., Ph.D. [address] [place] [phone] CREATION FISTULA RADIOCEPHALIC ARTERIOVENOUS 07/20/2023 11:00 AM CDT Office Visit Department of Orthopedic Surgery in [address] [phone] Cindy Walker D.PLeidaMLeida [address] [place] [phone] Discharge Disposition: Home or Self Care 08/25/2023 3:15 PM CDT Telemedicine Department of Sleep Medicine in [place], [place] [address] [place] [phone] Emilee Emanuel APRN, C.N.P., D.N.P., M.S.N. [address] [phone] Scheduled Procedures Name Priority Associated Diagnoses Date/Ti me CREATION FISTULA RADIOCEPHALIC ARTERIOVENOUS Chronic Kidney Disease Stage 5 Glomerular Filtration Rate Less Than 15 (HCC) 07/16/2023 12:06 PM PEDIATRIC DENTAL ASSISTANT CREATION FISTULA BRACHIOCEPHALIC ARTERIOVENOUS Chronic Kidney Disease Stage 5 Glomerular Filtration Rate Less Than 15 (HCC) 07/16/2023 12:06 PM PEDIATRIC DENTAL ASSISTANT documented as of this encounter Procedures Procedure Name Priority Date/Time Associated Diagnosis Comments IRON AND TOT IRON-BINDING CAPACITY, S/P Routine 01/27/2023 3:55 PM CDT Periodic Limb Movement Disorder TRANSFERRIN, S/P Routine 01/27/2023 3:55 PM CDT Periodic Limb Movement Disorder FERRITIN, S Routine 01/27/2023 3:54 PM CDT Periodic Limb Movement Disorder documented in this encounter Results * Transferrin (01/27/2023 3:55 PM CDT) Transferrin, S 218 200 - 360 mg/dL 01/27/2023 10:14 PM CDT [facility] Blood (Blood, Venous) 01/27/2023 3:55 PM CDT 01/27/2023 9:43 PM CDT Gabby Orozco APRN.N.P., Jayden.N.P., M.S. N. LAB BLOOD ADD-ON Performing Organization Address [facility] Co de Phone Number [facility] [address] [place] [address], [facility] [place] [facility] - [facility] [address] [place] [address] * Iron and Total Iron-Binding Capacity (01/27/2023 3:55 PM CDT) Iron 83 35 - 145 mcg/dL 01/27/2023 10:07 PM CDT [facility] Total Iron Binding Capacity 257 250 - 400 mcg/dL 01/27/2023 10:14 PM CDT [facility] Percent Saturation 32 14 - 50 % 01/27/2023 10:14 PM CDT [facility] Blood (Blood, Venous) 01/27/2023 3:55 PM CDT 01/27/2023 9:43 PM CDT Gabby Orozco APRN.N.P., D.N.P., M.S. N. LAB BLOOD ADD-ON Performing Organization Address City/[facility]/ZIP Co de Phone Number [facility] [address] [place] [address], [facility] - [facility] [address] [place] [address] * (ABNORMAL) Ferritin (01/27/2023 3:54 PM CDT) Ferritin, S 1400(H) 11 - 328 mcg/L 01/27/2023 4:56 PM CDT [facility] Comment: Biotin has been identified by the sales and marketing manager as a potential interfering substance. Higher concentrations of biotin may be found in multivitamins, hair/nail supplements, and workout supplements. If the result does not match clinical observations, repeat testing after patient refrains from the use of supplements for at least 12 hours. Blood (Blood, Venous) 01/27/2023 3:54 PM CDT 01/27/2023 3:58 PM CDT Emilee Emanuel APRN, C.N.P., D.N.P., M.S. N. LAB BLOOD ADD-ON [facility] [address] [place] [phone], [facility] in [place] [address] [place] [address] documented in this encounter Visit Diagnoses Diagnosis Periodic Limb Movement Disorder Chronic Kidney Disease Stage 5 Glomerular Filtration Rate Less Than 15 (HCC) documented in this encounter Additional Health Concerns Assessment Noted Time PHQ-9 Depression Total Score: 5 06/25/19 16 1:22 PM PEDIATRIC DENTAL ASSISTANT documented as of this encounter Care Teams Account Auditor Relationship Specialty Start Date End Date Allyn Alfredo M.D. [address] [phone] PCP - General Family Medicine 04/05/21 documented as of this encounter
--- OUTSIDE RECORDS SUMMARY | 2023-06-24 18:16 | XMS_ITS | Encounter Summary ---
Author Name Unknown Organization [facility] Address [address] [place] [address] Care Team Providers Care Focuser Name Role Phone Allyn Alfredo M.D. Primary Care Pro vider Reason for Referral * Outpatient (Routine) - Closed Specialty Diagnoses / Procedures Referred By Esther zamorano Referred To Contact Orthopedic Surgery Diagnoses Diabetes Mellitus Type 2 With Diabetic Neuropathy Hyperglycemic (HCC) Onychomycosis Pain Limb Generalized Diabetes Mellitus Type 2 With Diabetic Nephropathy (HCC) Cindy Walker D.P.M. [address] [place] [address] 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 Region Referral ID Status Reason Start Date Expiration Date Visits Re quested Visits Authorized [id number] Closed 12/15/2022 12/14/2025 1 1 Reason for Visit * Reason Comments Nail Problem Diabetic nail care Nail Problem * Outpatient (Routine) - Closed Specialty Diagnoses / Procedures Referred By Esther zamorano Referred To Contact Orthopedic Surgery Diagnoses Diabetes Mellitus Type 2 With Diabetic Neuropathy Hyperglycemic (HCC) Onychomycosis Pain Limb Generalized Diabetes Mellitus Type 2 With Diabetic Nephropathy (HCC) Cindy Walker D.P.MLeida [address] [place] [address] 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 Region Referral ID Status Reason Start Date Expiration Date Visits Re quested Visits Authorized [id number] Closed 09/15/2022 09/14/2025 1 1 Encounter Details Date Type Department Care Team (Latest Contact Info) Description 12/15/2022 11:30 AM CDT Office Visit Department of Orthopedic Surgery in [address] [phone] Cindy Walker D.PAv [address] [place] [phone] Diabetes Mellitus Type 2 With Diabetic Neuropathy Hyperglycemic (HCC) (Primary Dx); Onychomycosis; Pain Limb Generalized; Diabetes Mellitus Type [...] week 09/11/2022 How often do you attend [facility] or sikhism services? 1 to 4 times per year [...] Answer Date Recorded PHQ-2 Score 0 07/25/2022 [facility] Occupat ional Health - [...] Sex Assigned at Female 03/27/2017 3:30 PM HEAD OF LOSS PREVENTION Gender Identity Female 03/27/2017 3:30 PM HEAD OF LOSS PREVENTION Sexual Orientation Straight 03/27/2017 3: 30 PM HEAD OF LOSS PREVENTION documented as of this encounter Progress Notes * Cindy Walker D.PLeidaM. - 12/15/2022 11:30 AM CDT SUBJECTIVE CHIEF COMPLAINT / REASON FOR VISIT Chief Complaint Patient presents with Right Foot - Nail Problem Diabetic nail care Left Foot - Nail Problem [...] necessary foot care, sooner if questions or problems. documented in this encounter Plan of Treatment Upcoming Encounters Date Type Department Care Team (Latest Contact Info) Description 07/09/2023 8:20 AM HEAD OF LOSS PREVENTION Appointment Department of Laboratory Medicine in [address] [phone] Allyn Alfredo M.D. [address] [place] [phone] 07/09/2023 9:15 AM HEAD OF LOSS PREVENTION Office Visit Department of Family Medicine, [facility], in [address] [phone] Allyn Alfredo M.D. [address] [place] [phone] 07/16/2023 12:06 PM HEAD OF LOSS PREVENTION Hospital Encounter Post Anesthesia Care Unit in [address] [phone] Cristhian Grant M.B., Ch.B., Ph.D. [address] [place] [phone] 07/16/2023 12:06 PM HEAD OF LOSS PREVENTION - 07/16/2023 3:35 PM HEAD OF LOSS PREVENTION Surgery RST ROMB MAIN OR [address] [place] [phone] Cristhian Grant M.B., Ch.B., Ph.D. [address] [place] [phone] CREATION FISTULA RADIOCEPHALIC ARTERIOVENOUS 07/20/2023 11:00 AM CDT Office Visit Department of Orthopedic Surgery in [address] [phone] Cindy Walker D.PAv [address] [place] [phone] Discharge Disposition: Home or Self Care 08/25/2023 3:15 PM CDT Telemedicine Department of Sleep Medicine in [place], [place] [address] [place] [phone] Emilee Emanuel APRN, C.N.P., D.N.P., M.S.N. [address] [place] [phone] Scheduled Procedures Name Priority Associated Diagnoses Date/Ti me CREATION FISTULA RADIOCEPHALIC ARTERIOVENOUS Chronic Kidney Disease Stage 5 Glomerular Filtration Rate Less Than 15 (HCC) 07/16/2023 12:06 PM HEAD OF LOSS PREVENTION CREATION FISTULA BRACHIOCEPHALIC ARTERIOVENOUS Chronic Kidney Disease Stage 5 Glomerular Filtration Rate Less Than 15 (HCC) 07/16/2023 12:06 PM HEAD OF LOSS PREVENTION Scheduled Referrals Name Type Priority Associated Diagnoses Orde r Schedule Orthopedic Surgery office visit (clinic) Outpatient Referral Routine Diabetes Mellitus Type 2 With Diabetic Neuropathy Hyperglycemic (HCC) Onychomycosis Pain Limb Generalized Diabetes Mellitus Type 2 With Diabetic Nephropathy (HCC) Expected: 03/17/2023 (Approximate), Expires: 03/17/2024 documented as of this encounter Visit Diagnoses Diagnosis Diabetes Mellitus Type 2 With Diabetic Neuropathy Hyperglycemic (HCC)- Primary Onychomycosis Pain Limb Generalized Diabetes Mellitus Type 2 With Diabetic Nephropathy (HCC) Chronic Kidney Disease Stage 5 Glomerular Filtration Rate Less Than 15 (HCC) documented in this encounter Additional Health Concerns Assessment Noted Time PHQ-9 Depression Total Score: 5 06/25/19 16 1:22 PM HEAD OF LOSS PREVENTION documented as of this encounter Care Teams Focuser Relationship Specialty Start Date End Date Allyn Alfredo M.D. [address] [place] [phone] PCP - General Family Medicine 04/05/21 documented as of this encounter
--- OUTSIDE RECORDS SUMMARY | 2023-06-24 18:16 | XMS_ITS | Encounter Summary ---
Author Name Unknown Organization [facility] Address [address] [place] [address] Care Team Providers Care Grinder Set Up Operator Universal Name Role Phone Allyn Alfredo M.D. Primary Care Pro vider Encounter Details Date Type Department Care Team (Late st Contact Info) Description 01/02/2023 Orders Only Department of Family Medicine, [facility], in [address] [phone] Allyn Alfredo M.D. [address] [place] [phone] Social History Tobacco Use Types Packs/Day Years [...] How often do you attend chur or nondenominational services? 1 to 4 times per year [...] Sex Assigned at Female 03/27/2017 3:30 PM TIMBER CRUISER Gender Identity Female 03/27/2017 3:30 PM TIMBER CRUISER Sexual Orientation Straight 03/27/2017 3: 30 PM TIMBER CRUISER documented as of this encounter Plan of Treatment Upcoming Encounters Date Type Department Care Team (Latest Contact Info) Description 07/09/2023 8:20 AM TIMBER CRUISER Appointment Department of Laboratory Medicine in [address] [phone] Allyn Alfredo M.D. [address] [place] [phone] 07/09/2023 9:15 AM TIMBER CRUISER Office Visit Department of Family Medicine, [facility], in [address] [phone] Allyn Alfredo M.D. [address] [place] [phone] 07/16/2023 12:06 PM TIMBER CRUISER Hospital Encounter Post Anesthesia Care Unit in [address] [phone] Cristhian Grant M.B., Ch.B., Ph.D. [address] [place] [phone] 07/16/2023 12:06 PM TIMBER CRUISER - 07/16/2023 3:35 PM TIMBER CRUISER Surgery RST ROMB MAIN OR [facility] [address] [place] [phone] Cristhian Grant M.B., Ch.B., Ph.D. [address] [place] [phone] CREATION FISTULA RADIOCEPHALIC ARTERIOVENOUS 07/20/2023 11:00 AM CDT Office Visit Department of Orthopedic Surgery in [address] [phone] Cindy Walker D.P.M. [address] [place] [phone] Discharge Disposition: Home or Self Care 08/25/2023 3:15 PM CDT Telemedicine Department of Sleep Medicine in [place], [place] [address] [place] [phone] Emilee Eamnuel APRN, C.N.P., D.N.P., M.S.N. [address] [place] [phone] Scheduled Procedures Name Priority Associated Diagnoses Date/Ti me CREATION FISTULA RADIOCEPHALIC ARTERIOVENOUS Chronic Kidney Disease Stage 5 Glomerular Filtration Rate Less Than 15 (HCC) 07/16/2023 12:06 PM TIMBER CRUISER CREATION FISTULA BRACHIOCEPHALIC ARTERIOVENOUS Chronic Kidney Disease Stage 5 Glomerular Filtration Rate Less Than 15 (HCC) 07/16/2023 12:06 PM TIMBER CRUISER documented as of this encounter Visit Diagnoses Not on filedocumented in this encounter Additional Health Concerns Assessment Noted Time PHQ-9 Depression Total Score: 5 06/25/19 16 1:22 PM TIMBER CRUISER documented as of this encounter Care Teams Grinder Set Up Operator Universal Relationship Specialty Start Date End Date Allyn Alfredo M.D. [address] [place] [phone] PCP - General Family Medicine 04/05/21 documented as of this encounter
--- OUTSIDE RECORDS SUMMARY | 2023-06-24 18:16 | XMS_ITS | Encounter Summary ---
Author Name Unknown Organization [facility] Address [address] [place] [address] Care Team Providers Care Tanbark Laborer Name Role Phone Allyn Alfredo M.D. Primary Care Pro vider Encounter Details Date Type Department Care Team (Late st Contact Info) Description 12/10/2022 Orders Only [facility] Allyn Alfredo M.D. [address] [place] [phone] Diabetes Mellitus Type 2 With Diabetic Nephropathy (HCC) Social History Tobacco Use Types Packs/Day [...] How often do you attend chur or islam services? 1 to 4 times per year 09/11/2022 Do you belong to any clubs o r organizations such as gnosticism groups, unions, fraternal or athletic groups, or [...] Answer Date Recorded PHQ-2 Score 0 07/25/2022 [facility] of Occupat ional Health - Occupational [...] in a retirement (including now)? No 09/11/2022 Nutrition Answer Date [...] Sex Assigned at Female 03/27/2017 3:30 PM INTERACTIVE PROJECT MANAGER Gender Identity Female 03/27/2017 3:30 PM INTERACTIVE PROJECT MANAGER Sexual Orientation Straight 03/27/2017 3: 30 PM INTERACTIVE PROJECT MANAGER documented as of this encounter Plan of Treatment Upcoming Encounters Date Type Department Care Team (Latest Contact Info) Description 07/09/2023 8:20 AM INTERACTIVE PROJECT MANAGER Appointment Department of Laboratory Medicine in [address] [phone] Allyn Alfredo M.D. [address] [place] [phone] 07/09/2023 9:15 AM INTERACTIVE PROJECT MANAGER Office Visit Department of Family Medicine, [facility], in [address] [phone] Allyn Alfredo M.D. [address] [place] [phone] 07/16/2023 12:06 PM INTERACTIVE PROJECT MANAGER Hospital Encounter Post Anesthesia Care Unit in [address] [phone] Cristhian Grant M.B., Ch.B., Ph.D. [address] [place] [phone] 07/16/2023 12:06 PM INTERACTIVE PROJECT MANAGER - 07/16/2023 3:35 PM INTERACTIVE PROJECT MANAGER Surgery RST ROMB MAIN OR [address] [place] [phone] Cristhian Grant M.B., Ch.B., Ph.D. [address] [place] [phone] CREATION FISTULA RADIOCEPHALIC ARTERIOVENOUS 07/20/2023 11:00 AM CDT Office Visit Department of Orthopedic Surgery in [address] [phone] Cindy Walker D.PLeidaMLeida [address] [place] [phone] Discharge Disposition: Home or Self Care 08/25/2023 3:15 PM CDT Telemedicine Department of Sleep Medicine in [place], [place] [address] [place] [phone] Emilee Emanuel APRN, C.N.P., ChristineN.P., M.S.N. [address] [phone] Scheduled Procedures Name Priority Associated Diagnoses Date/Ti me CREATION FISTULA RADIOCEPHALIC ARTERIOVENOUS Chronic Kidney Disease Stage 5 Glomerular Filtration Rate Less Than 15 (HCC) 07/16/2023 12:06 PM INTERACTIVE PROJECT MANAGER CREATION FISTULA BRACHIOCEPHALIC ARTERIOVENOUS Chronic Kidney Disease Stage 5 Glomerular Filtration Rate Less Than 15 (HCC) 07/16/2023 12:06 PM INTERACTIVE PROJECT MANAGER documented as of this encounter Results * (ABNORMAL) Albumin, Random, Urine (01/08/2023 12:27 PM CDT) Microalbumin 890.9 mg/L 01/08/2023 1:09 PM CDT CNFL Creatinine 145 mg/dL 01/08/2023 12:49 PM CDT CNFL Albumin/Creatinin e Ratio 614(H) <25 mg/g 01/08/2023 1:09 PM CDT CNFL Urine (Urine, Midstream) 01/08/2023 12:27 PM CDT 01/08/2023 12:36 PM CDT Allyn Ryan M.D. LAB URINE ORDERABLES [facility] [address] [place] [phone], [facility] CNFL [facility] in [address] [phone] documented in this encounter Visit Diagnoses Diagnosis Diabetes Mellitus Type 2 With Diabetic Nephropathy (HCC) Chronic Kidney Disease Stage 5 Glomerular Filtration Rate Less Than 15 (HCC) documented in this encounter Additional Health Concerns Assessment Noted Time PHQ-9 Depression Total Score: 5 06/25/19 16 1:22 PM INTERACTIVE PROJECT MANAGER documented as of this encounter Care Teams Tanbark Laborer Relationship Specialty Start Date End Date Allyn Alfredo M.D. [address] [place] [phone] PCP - General Family Medicine 04/05/21 documented as of this encounter
--- OUTSIDE RECORDS SUMMARY | 2023-06-24 18:16 | XMS_ITS | Encounter Summary ---
Author Name Unknown Organization [facility] Address [address] [place] [address] Care Team Providers Care Ext Js Developer Name Role Phone Allyn Alfredo M.D. Primary Care Pro vider Encounter Details Date Type Department Care Team (Latest Contact Info) Description 01/08/2023 12:10 PM CDT - 01/08/2023 11:59 PM CDT Hospital Encounter Department of Laboratory Medicine in [address] [phone] Allyn Alfredo M.D. [address] [place] [phone] Diabetes Mellitus Type 2 With Diabetic Neuropathy (HCC); Monitoring For Therapeutic Drug Therapy Discharge Disposition: Home or Self Care Social [...] often do you attend chur ch or roman catholic services? 1 to 4 times per year 09/11/2022 Do you belong to any clubs o r organizations such as sabianism groups, unions, fraternal or athletic groups, or [...] Answer Date Recorded PHQ-2 Score 0 07/25/2022 [facility] of Occupat ional Health - Occupational Stress [...] health care facility (including now)? No 09/11/2022 Nutrition Answer Date [...] Sex Assigned at Female 03/27/2017 3:30 PM MATERIALS MANAGEMENT CLERK Gender Identity Female 03/27/2017 3:30 PM MATERIALS MANAGEMENT CLERK Sexual Orientation Straight 03/27/2017 3: 30 PM MATERIALS MANAGEMENT CLERK documented as of this encounter Medications at Time of Discharge Medication Sig Dispensed Refills Start Date End Date aspirin [address] tablet Take 1 tablet by mouth daily. 0 BD Ultra-Fine Short Pen Needle 31 gauge x 16 needle Inject 4 Injection under the skin daily. 400 each 3 12/25/2022 blood-glucose meter,continuous (Dexcom G7 Knife Machine Operator) misc Use as directed 3 [...] (Latest Contact Info) Description 07/09/2023 8:20 AM MATERIALS MANAGEMENT CLERK Appointment Department of Laboratory Medicine in [address] [phone] Allyn Alfredo M.D. [address] [place] [phone] 07/09/2023 9:15 AM MATERIALS MANAGEMENT CLERK Office Visit Department of Family Medicine, [facility], in [address] [phone] Allyn Alfredo M.D. [address] [place] [phone] 07/16/2023 12:06 PM MATERIALS MANAGEMENT CLERK Hospital Encounter Post Anesthesia Care Unit in [address] [phone] Cristhian Grant M.B., Ch.B., Ph.D. [address] [place] [phone] 07/16/2023 12:06 PM MATERIALS MANAGEMENT CLERK - 07/16/2023 3:35 PM MATERIALS MANAGEMENT CLERK Surgery RST ROMB MAIN OR [address] [place] [phone] Cristhian Grant M.B., Ch.B., Ph.D. [address] [place] [phone] CREATION FISTULA RADIOCEPHALIC ARTERIOVENOUS 07/20/2023 11:00 AM CDT Office Visit Department of Orthopedic Surgery in [address] [phone] Cindy Walker D.PAv [address] [place] [phone] Discharge Disposition: Home or Self Care 08/25/2023 3:15 PM CDT Telemedicine Department of Sleep Medicine in [place], [place] [address] [phone] Emilee Emanuel APRN, C.N.P., D.N.P., M.S.N. [address] [phone] Scheduled Procedures Name Priority Associated Diagnoses Date/Ti me CREATION FISTULA RADIOCEPHALIC ARTERIOVENOUS Chronic Kidney Disease Stage 5 Glomerular Filtration Rate Less Than 15 (HCC) 07/16/2023 12:06 PM MATERIALS MANAGEMENT CLERK CREATION FISTULA BRACHIOCEPHALIC ARTERIOVENOUS Chronic Kidney Disease Stage 5 Glomerular Filtration Rate Less Than 15 (HCC) 07/16/2023 12:06 PM MATERIALS MANAGEMENT CLERK documented as of this encounter Procedures Procedure Name Priority Date/Time Associated Diagnosis Comments HEMOGLOBIN A1C, B Routine 01/08/2023 12: 27 PM CDT Diabetes Mellitus Type 2 With Diabetic Neuropathy (HCC) BASIC METABOLIC PANEL, S/P Routine 01/08/2023 12:27 PM CDT Monitoring For Therapeutic Drug Therapy documented in this encounter Results * (ABNORMAL) Basic Metabolic Panel (01/08/2023 12:27 PM CDT) Potassium, P 4.4 3.6 - 5.2 mmol/L 01/08/2023 12:47 PM CDT CNFL Sodium, P 134(L) 135 - 145 mmol/L 01/08/2023 12:47 PM CDT CNFL Chloride, P 93(L) 98 - 107 mmol/L 01/08/2023 12:47 PM CDT CNFL Bicarbonate, P 19(L) 22 - 29 mmol/L 01/08/2023 12:47 PM CDT CNFL Anion Gap, P 22(H) 7 - 15 01/08/2023 12:47 PM CDT CNFL BUN (Blood Urea Nitrogen), P 50(H) 6 - 21 mg/dL 01/08/2023 12:47 PM CDT CNFL Creatinine 11.19(H) 0.59 - 1.04 mg/dL 01/08/2023 2:19 PM CDT CNFL Estimated GFR (eGFR) <15(L) >=60 mL/min/BSA 01/08/2023 2:19 PM CDT CNFL Comment: Estimated GFR calculated using the 2020 CKD_EPI creatinine equation. Calcium, Total, P 9.8 8.8 - 10.2 mg/dL 01/08/2023 12:47 PM CDT CNFL Glucose, P 183(H) 70 - 140 mg/dL 01/08/2023 12:47 PM CDT CNFL Blood (Blood, Venous) 01/08/2023 12:27 PM CDT 01/08/2023 12:28 PM CDT Allyn Ryan M.D. LAB BLOOD ADD-ON [facility] [address] [address], [facility] in [address] [address] * (ABNORMAL) Hemoglobin A1c (01/08/2023 12:27 PM CDT) Hemoglobin A1c, B 6.4(H) 4.2 - 5.6 % 01/08/2023 12:43 PM CDT [facility] Comment: Hemoglobin A1c values of 5.7-6.4 percent indicate an increased risk for developing diabetes mellitus. In diabetic patients, HbA1c goals should be discussed with healthcare provider. Blood (Blood, Venous) 01/08/2023 12:27 PM CDT 01/08/2023 12:28 PM CDT Allyn Ryan M.D. LAB BLOOD ADD-ON [facility] [address] [place] [address], [facility] in [address] [address] documented in this encounter Visit Diagnoses Diagnosis Diabetes Mellitus Type 2 With Diabetic Neuropathy (HCC) Monitoring For Therapeutic Drug Therapy Chronic Kidney Disease Stage 5 Glomerular Filtration Rate Less Than 15 (HCC) documented in this encounter Additional Health Concerns Assessment Noted Time PHQ-9 Depression Total Score: 5 06/25/19 16 1:22 PM MATERIALS MANAGEMENT CLERK documented as of this encounter Care Teams Ext Js Developer Relationship Specialty Start Date End Date Allyn Alfredo M.D. [address] [place] [phone] PCP - General Family Medicine 04/05/21 documented as of this encounter
--- OUTSIDE RECORDS SUMMARY | 2023-06-24 18:16 | XMS_ITS | Encounter Summary ---
Author Name Unknown Organization [facility] Address [address] [place] [address] Care Team Providers Care Chief Librarian Extension Department Name Role Phone Allyn Alfredo M.D. Primary Care Pro vider Reason for Referral * Outpatient (Routine) - Authorized Specialty Diagnoses / Procedures Referred By Esther zamorano Referred To Contact Family Medicine Allyn Alfredo M.D. [address] [place] [phone] [facility] Referral ID Status Reason Start Date Expiration Date V isits Requested Visits Authorized [id number] Authorized 01/08/2023 01/07/2026 1 1 Reason for Visit * Reason Comments Diabetes OUMOU, A1C and BMP col lected prior to visit. A1C in July 15.2.Continues on nightly dialysis.C/O extreme fatigue, has upcoming tests scheduled by Nephrology.Going to PT for her spine issues in [place]. Doesn't believe that it's helping at all. Pain is from compression, talking about putting a spacer in her back. States that the procedure is nothing major. * Outpatient (Routine) - Closed Specialty Diagnoses / Procedures Referred By Esther zamorano Referred To Contact Family Allyn Limon M.D. [address] [place] [phone] [facility] Region Referral ID Status Reason Start Date Expiration Date Visits Re quested Visits Authorized [id number] Closed 07/29/2022 07/28/2025 1 1 Encounter Details Date Type Department Care Team (Latest Contact Info) Description 01/08/2023 12:45 PM CDT Office Visit Department of Family Medicine, [facility], in [address] [phone] Allyn Alfredo M.D. [address] [place] [phone] Diabetes Mellitus Type 2 With Diabetic Neuropathy Hyperglycemic (HCC) (Primary Dx); Diabetes Mellitus Type 2 With Diabetic Nephropathy (HCC); Fatigue Extreme; Dialysis Peritoneal Status (HCC); Anemia Of Chronic Renal Failure; Hypertension And Chronic Kidney Disease Stage 5 (HCC); Hyperlipidemia; Radiculopathy Lumbar Discharge Disposition: Home or Self Care Social [...] Answer Date Recorded PHQ-2 Score 0 07/25/2022 [facility] - Occupational [...] Sex Assigned at Female 03/27/2017 3:30 PM LITERACY TEACHER Gender Identity Female 03/27/2017 3:30 PM LITERACY TEACHER Sexual Orientation Straight 03/27/2017 3: 30 PM LITERACY TEACHER documented as of this encounter Last Filed Vital Signs Vital Sign Reading Time Taken Comments Blood Pressure 137/77 01/08/2023 12:39 PM CDT Pulse 76 01/08/2023 12:39 PM CDT Temperature - - Respiratory Rate - - Oxygen Saturation - - Inhaled Oxygen Concentration - - Weight 90 kg (198 lb 6.6 oz) 01/08/2023 12:39 PM CDT Height - - Body Mass Index 34.29 07/29/2022 4:50 PM CDT documented in this encounter Progress Notes * Allyn Alfredo M.D. - 01/08/2023 12:45 PM CDT SUBJECTIVE I explained the use of Fluency Align and the patient agreed to proceed with its use. CHIEF COMPLAINT / REASON FOR VISIT Concetta Medina is a 77 y.o. female who presents for evaluation of Diabetes (OUMOU, A1C and BMP collected prior to visit. A1C in July 7.2./Continues on nightly dialysis./C/O extreme fatigue, has upcoming tests scheduled by Nephrology./Going to PT for her spine issues in [place]. Doesn't believe that it's helping at all. Pain is from compression, talking about putting a spacer in her back. States that the procedure is nothing major. ). HISTORY OF PRESENT ILLNESS She notes she is struggling with a lack of energy. Dr. Lincoln has suggested the possibility of a sleep disorder. She has her doubts about this, but a consult with Sleep Medicine in [place] has been ordered for January which she plans to attend. He also tapered her gabapentin down to 100 mg at bedtime and added Mirapex, and she finds she is falling asleep more easily now and sleeping through the night. She has an echocardiogram in [place] also ordered for January. Her hemoglobin in November was 9.6, and Mircera was increased to 80 mcg monthly. She did not note any improvement with this. She feels the dialysis is going well. She is engaged in physical therapy twice weekly in [place] for her back pain. The techniques used in therapy are helpful, but she admits she does not follow through at home. She is considering a procedure but wants to give the physical therapy a chance first. She is not exercising formally outside of physical therapy. Over the last 30 days, her glucose average was 189 with a GMI of 7.8. Her sugars seem to be a little higher with the green bags, which she has just recently stopped. If she goes down to the last seven days per her Dexcom, it shows 197, illustrating that effect. For three days, it was 192. Her P5ekcrfi was 6.4%. She has not had any blood transfusions. She has had a couple lows in December but has been more on the higher side lately. She notes easy bruising on her arms. She is on aspirin. She has not had any chest pain but notes she gets winded easily. REVIEW OF SYSTEMS A brief review of systems was negative except for that mentioned in the history of present illness. Current Outpatient Medications Medication Sig allopurinoL (ZYLOPRIM) 100 mg tablet TAKE 1 TABLET DAILY amLODIPine (NORVASC) 5 mg tablet TAKE 1 TABLET DAILY aspirin [address] tablet Take 1 tablet by mouth daily. BD Ultra-Fine Short Pen Needle 31 gauge x 5/16 needle Inject 4 Injection under the skin daily. blood-glucose meter,continuous (Dexcom G7 Intensivist) misc Use as directed 3 (three) times a day. blood-glucose meter,continuous misc Use to monitor blood glucose blood-glucose sensor (Dexcom G7 Sensor) device 1 Device as directed for 10 days. Apply to skin replace every 10 days cephalexin (KEFLEX) 500 mg capsule Take 1 capsule (500 mg total) by mouth every 12 (twelve) hours for 10 days. docosahexaenoic acid/epa (FISH OIL ORAL) Take 1 capsule by mouth daily. folic acid/vit B complex and C (DIALYVITE ORAL) Take 1 tablet by mouth daily. gabapentin (NEURONTIN) 100 mg capsule Take 1 capsule (100 mg total) by mouth at bedtime. Restless leg syndrome gentamicin sulfate 1.2 g sterile powder Apply 1 application topically as needed. insulin glargine (Basaglar KwikPen U-100 Insulin) 100 unit/mL (3 mL) injection Inject 12 Units under the skin at bedtime. losartan (COZAAR) 50 mg tablet Take 1 tablet (50 mg total) by mouth daily. pramipexole (MIRAPEX) 0.125 mg tablet Take 1 tablet (0.125 mg total) by mouth at bedtime. pravastatin (PRAVACHOL) 40 mg tablet TAKE 1 TABLET AT BEDTIME FOR CHOLESTEROL blood-glucose sensor (Dexcom G6 Sensor) device CHANGE EVERY 10 DAYS blood-glucose transmitter (Dexcom G6 Transmitter) device REPLACE EVERY 3 MONTHS calcium acetate,phosphat bind, (PHOSLO) 667 mg (169 mg calcium) capsule TAKE 2 CAPSULES BY MOUTH THREE TIMES A DAY WITH MEALS AND 1 CAPSULE WITH SNACKS multivitamin renal failure (DIALYVITE) 100-1 mg tablet TAKE 1 TABLET BY MOUTH DAILY WITH DINNER sevelamer (RENVELA) 800 mg tablet Take 2 tablets (1,600 mg total) by mouth 3 (three) times a day with meals. torsemide (DEMADEX) 5 mg tablet Take 1.5 tablets (7.5 mg total) by mouth 2 (two) times a day with meals. Allergies Allergen Reactions Atorvastatin Myalgia tiredness, muscle cramps Clonidine Other (see comments) Dizziness, insomnia, dry mouth Oxycodone GI intolerance Extreme vomiting Penicillins Other (see comments) Unsure (tolerated Ancef before) OBJECTIVE PHYSICAL EXAMINATION BP 137/77 Pulse 76 Wt 90 kg BMI 34.29 kg/m?? Body mass index is 34.29 kg/m??. General: Alert and oriented. No acute distress. Neck: Supple. No lymphadenopathy. No carotid bruits. Cardiovascular Exam: Regular rate and rhythm. Normal S1 and S2. No murmurs, rubs, or gallops. Lungs: Clear to auscultation bilaterally. Extremities: Trace edema in ankles bilaterally. DIAGNOSTICS Results for orders placed or performed during the hospital encounter of 01/08/23 Hemoglobin A1c Result Value Ref Range Hemoglobin A1c, B 6.4 (H) 4.2 - 5.6 % Basic Metabolic Panel Result Value Ref Range Potassium, P 4.4 3.6 - 5.2 mmol/L Sodium, P 134 (L) 135 - 145 mmol/L Chloride, P 93 (L) 98 - 107 mmol/L Bicarbonate, P 19 (L) 22 - 29 mmol/L Anion Gap, P 22 (H) 7 - 15 BUN (Blood Urea Nitrogen), P 50 (H) 6 - 21 mg/dL Creatinine 11.19 (H) 0.59 - 1.04 mg/dL Estimated GFR (eGFR) <15 (L) >=60 mL/min/BSA Calcium, Total, P 9.8 8.8 - 10.2 mg/dL Glucose, P 183 (H) 70 - 140 mg/dL ASSESSMENT / PLAN #1 Diabetes Mellitus Type 2 With Diabetic Neuropathy Hyperglycemic (HCC) #2 Diabetes Mellitus Type 2 With Diabetic Nephropathy (HCC) A1c is very good at 6.4%. This does not necessarily correlate with her current blood sugar readings, but we discussed she may have had lower readings a couple months ago. We will continue with current management. 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 I agree with work-up to this point. 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 She recently had her erythropoietin increased, but that did not make a difference in her fatigue. #6 Hypertension And Chronic Kidney Disease Stage 5 (HCC) Blood pressure is at goal. Labs were reviewed. Continue current management. #7 Hyperlipidemia Continue statin. Recheck lipid panel in six months. #8 Radiculopathy Lumbar Continue with physical therapy which she is receiving at an outside organization. Plan was discussed with patient and is in agreement with plan. All questions were answered, side effects of any/all new medications were discussed. Patient left in no acute distress. Allyn Ryan MD Documentation Respiratory Therapy Director Tyra Luis contributed to note content for Allyn Ryan M.D.. documented in this encounter Plan of Treatment Upcoming Encounters Date Type Department Care Team (Latest Contact Info) Description 07/09/2023 8:20 AM LITERACY TEACHER Appointment Department of Laboratory Medicine in [address] [phone] Allyn Alfredo M.D. [address] [place] [phone] 07/09/2023 9:15 AM LITERACY TEACHER Office Visit Department of Family Medicine, [facility], in [address] [phone] Allyn Alfredo M.D. [address] [place] [phone] 07/16/2023 12:06 PM LITERACY TEACHER Hospital Encounter Post Anesthesia Care Unit in [place], [place] [address] [place] [phone] Cristhian Grant M.B., Ch.B., Ph.D. [address] [place] [phone] 07/16/2023 12:06 PM LITERACY TEACHER - 07/16/2023 3:35 PM LITERACY TEACHER Surgery [facility] [address] [place] [phone] Cristhian Grant M.B., Ch.B., Ph.D. [address] [place] [phone] CREATION FISTULA RADIOCEPHALIC ARTERIOVENOUS 07/20/2023 11:00 AM CDT Office Visit Department of Orthopedic Surgery in [address] [phone] Cindy Walker D.PLeidaMLeida [address] [place] [phone] Discharge Disposition: Home or Self Care 08/25/2023 3:15 PM CDT Telemedicine Department of Sleep Medicine in [place], [place] [address] [phone] Emilee Emanuel APRN, C.N.P., D.N.P., M.S.N. [address] [phone] Scheduled Orders Name Type Priority Associated Diagnoses Orde r Schedule Hemoglobin A1c Lab Routine Diabetes Mellitus Type 2 With Diabetic Neuropathy (HCC) Expected: 07/09/2023 (Approximate), Expires: 04/09/2024 Lipid Panel Lab Routine Hyperlipidemia Expected: 07/09/2023 (Approximate), Expires: 04/09/2024 Scheduled Procedures Name Priority Associated Diagnoses Date/Ti me CREATION FISTULA RADIOCEPHALIC ARTERIOVENOUS Chronic Kidney Disease Stage 5 Glomerular Filtration Rate Less Than 15 (HCC) 07/16/2023 12:06 PM LITERACY TEACHER CREATION FISTULA BRACHIOCEPHALIC ARTERIOVENOUS Chronic Kidney Disease Stage 5 Glomerular Filtration Rate Less Than 15 (HCC) 07/16/2023 12:06 PM LITERACY TEACHER Scheduled Referrals Name Type Priority Associated Diagnoses Orde r Schedule Family Medicine office visit (clinic) Outpatient Referral Routine Expected: 07/09/2023 (Approximate), Expires: 04/09/2024 documented as of this encounter Visit Diagnoses Diagnosis Diabetes Mellitus Type 2 With Diabetic Neuropathy Hyperglycemic (HCC)- Primary Diabetes Mellitus Type 2 With Diabetic Nephropathy (HCC) Fatigue Extreme Dialysis Peritoneal Status (HCC) Anemia Of Chronic Renal Failure Hypertension And Chronic Kidney Disease Stage 5 (HCC) Hyperlipidemia Radiculopathy Lumbar Chronic Kidney Disease Stage 5 Glomerular Filtration Rate Less Than 15 (HCC) documented in this encounter Additional Health Concerns Assessment Noted Time PHQ-9 Depression Total Score: 5 06/25/19 16 1:22 PM LITERACY TEACHER documented as of this encounter Care Teams Chief Librarian Extension Department Relationship Specialty Start Date End Date Byers Allyn Ryan M.D. [id number] [phone] PCP - General Family Medicine 04/05/21 documented as of this encounter
--- OUTSIDE RECORDS SUMMARY | 2023-06-24 18:16 | XMS_ITS | Encounter Summary ---
Author Name Unknown Organization [facility] Address [address] [place] [address] Care Team Providers Care Bull Chain Operator Name Role Phone Allyn Alfredo M.D. Primary Care Pro vider Reason for Referral * Outpatient (Routine) - Closed Specialty Diagnoses / Procedures Referred By Contac t Referred To Contact Diagnoses Pain Low Back Unspecified Procedures BMD Bone Density Spine Hips Deshawn Casanova PEvangelista [address] , [address] [place] [address] [facility] Region Referral ID Status Reason Start Date Expiration Date Visits Re quested Visits Authorized [id number] Closed 11/21/2022 11/21/2023 1 1 Reason for Visit * Outpatient (Routine) - Closed Specialty Diagnoses / Procedures Referred By Contac t Referred To Contact Diagnoses Pain Low Back Unspecified Procedures BMD Bone Density Spine Hips Deshawn Casanova P.A. [address] , [address] [place] [address] [facility] Region Referral ID Status Reason Start Date Expiration Date Visits Re quested Visits Authorized [id number] Closed 11/21/2022 11/21/2023 1 1 Encounter Details Date Type Department Care Team (Latest Contact Info) Description 11/26/2022 1:18 PM CDT - 11/26/2022 11:59 PM CDT Hospital Encounter Department of Radiology in [address] [phone] Deshawn Casanova P.A. [address] , [address] [place] [phone] Pain Low Back Unspecified Discharge Disposition: Home or Self Care Social [...] any clubs o r organizations such as latter day groups, unions, fraternal or athletic groups, or [...] Answer Date Recorded PHQ-2 Score 0 07/25/2022 [facility] - Occupational Stress Questionnaire [...] in a mcc (including now)? No 09/11/2022 Nutrition Answer Date [...] Sex Assigned at Female 03/27/2017 3:30 PM STATION BAGGAGE AGENT Gender Identity Female 03/27/2017 3:30 PM STATION BAGGAGE AGENT Sexual Orientation Straight 03/27/2017 3: 30 PM STATION BAGGAGE AGENT documented as of this encounter Medications at Time of Discharge Medication Sig Dispensed Refills Start Date End Date aspirin [address] tablet Take 1 tablet by mouth daily. 0 blood-glucose meter,continuous (Dexcom G7 Retail Pricing Coordinator) misc Use as directed 3 (three) [...] Take 1 tablet by mouth daily. 0 allopurinoL (ZYLOPRIM) 100 mg tablet TAKE 1 TABLET DAILY 90 tablet 3 04/08/2022 05/19/2023 amLODIPine (NORVASC) 5 mg tablet Take 1 tablet (5 mg total) by mouth daily. 90 tablet 3 03/17/2022 01/07/2023 BD Ultra-Fine Short Pen Needle 31 gauge x 5/16 needle Inject 4 Injection under the skin daily. 400 each 3 01/28/2022 12/24/2022 blood-glucose sensor (Dexcom G6 Sensor) device CHANGE EVERY 10 DAYS 9 each 2 07/21/2022 01/09/2023 blood-glucose transmitter (Dexcom G6 Transmitter) device REPLACE EVERY 3 MONTHS 1 each 3 07/29/2022 01/09/2023 gabapentin (NEURONTIN) 100 mg capsule Take 3 capsules (300 mg total) by mouth at bedtime. Restless leg syndrome 270 capsule 3 09/02/2022 12/30/2022 gentamicin sulfate 1.2 g sterile powder Apply [...] WITH DINNER 30 tablet 1 04/06/2021 03/10/2023 pravastatin (PRAVACHOL) 40 mg tablet Take 1 tablet (40 mg total) by mouth at bedtime. for cholesterol 90 tablet 3 12/20/2021 01/01/2023 sevelamer (RENVELA) 800 mg tablet Take 2 [...] (Latest Contact Info) Description 07/09/2023 8:20 AM STATION BAGGAGE AGENT Appointment Department of Laboratory Medicine in [address] [phone] Allyn Alfredo M.D. [address] [place] [phone] 07/09/2023 9:15 AM STATION BAGGAGE AGENT Office Visit Department of Family Medicine, [facility], in [address] [phone] Allyn Alfredo M.D. [address] [place] [phone] 07/16/2023 12:06 PM STATION BAGGAGE AGENT Hospital Encounter Post Anesthesia Care Unit in [address] [phone] Cristhian [place] M.B., Ch.B., Ph.D. [address] [place] [phone] 07/16/2023 12:06 PM STATION BAGGAGE AGENT - 07/16/2023 3:35 PM STATION BAGGAGE AGENT Surgery RST ROMB MAIN OR [facility] [place] [phone] Cristhian [place] M.B., Ch.B., Ph.D. [address] [place] [phone] CREATION FISTULA RADIOCEPHALIC ARTERIOVENOUS 07/20/2023 11:00 AM CDT Office Visit Department of Orthopedic Surgery in [address] [phone] Cindy Walker D.PAv [address] [place] [phone] Discharge Disposition: Home or Self Care 08/25/2023 3:15 PM CDT Telemedicine Department of Sleep Medicine in [place], [place] [address] [place] [phone] Emilee Emanuel APRN, C.N.P., D.N.P., M.S.N. [address] [place] [phone] Scheduled Procedures Name Priority Associated Diagnoses Date/Ti me CREATION FISTULA RADIOCEPHALIC ARTERIOVENOUS Chronic Kidney Disease Stage 5 Glomerular Filtration Rate Less Than 15 (HCC) 07/16/2023 12:06 PM STATION BAGGAGE AGENT CREATION FISTULA BRACHIOCEPHALIC ARTERIOVENOUS Chronic Kidney Disease Stage 5 Glomerular Filtration Rate Less Than 15 (HCC) 07/16/2023 12:06 PM STATION BAGGAGE AGENT documented as of this encounter Procedures Procedure Name Priority Date/Time Associated Diagnosis Comments BMD BONE DENSITY SPINE HIPS RAD - Routine (most inpatients and all outpatients) 11/26/2022 1:42 PM CDT Pain Low Back Unspecified documented in this encounter Results * BMD Bone Density Spine Hips (11/26/2022 1:42 PM CDT) Anatomical Region Laterality Modality Hip, Lumbar Spine, Nuclear M edicine RST LOS, Musculoskeletal ARZ LOS, Muskuloskeletal FLA LOS N/A Radio graphic Imaging 11/26/2022 1:45 PM CDT Impressions 11/26/2022 1:45 PM CDT Normal bone mineral density. Narrative 11/26/2022 1:45 PM CDT EXAM: ??BMD BONE DENSITY SPINE HIPS Bone Mineral Density (BMD) analysis performed on Wisair with serial number [id number]. COMPARISON: Serial Comparisons Left Total Hip results: Exam Date ? BMD ? T-score ? 06/18/2009 ?1.010 g/cm2 ?? 0.0 ? 06/18/2009 ?1.012 g/cm2 ?? 0.0 ? 04/06/2018 ?1.016 g/cm2 ?? 0.1 ? 11/26/2022 ? 0.957 g/cm2 ?? -0.4 ? Change vs. Previous (difference): -0.059 g/cm2 *Change vs. Previous (%): -5.8 % The absolute BMD change from previous, -0.059 g/cm2, is greater than least significant change: Yes The absolute BMD change from baseline, -0.053 g/cm2, is greater than least significant change: Yes Right Total Hip results: Exam Date ? BMD ? T-score ? 06/18/2009 ?1.075 g/cm2 ?? 0.5 ? 06/18/2009 ?1.078 g/cm2 ?? 0.6 ? 04/06/2018 ?1.104 g/cm2 ?? 0.8 ? 11/26/2022 ? 0.999 g/cm2 ?? -0.1 ? Change vs. Previous (difference): -0.105 g/cm2 *Change vs. Previous (%): -9.5 % The absolute BMD change from previous, -0.105 g/cm2, is greater than least significant change: Yes The absolute BMD change from baseline, -0.076 g/cm2, is greater than least significant change: Yes Combined Total Hip results: Exam Date ? BMD ? T-score ? 06/18/2009 ?1.043 g/cm2 ?? 0.3 ? 06/18/2009 ?1.045 g/cm2 ?? 0.3 ? 04/06/2018 ?1.060 g/cm2 ?? 0.4 ? 11/26/2022 ? 0.978 g/cm2 ?? -0.2 ? Change vs. Previous (difference): -0.082 g/cm2 *Change vs. Previous (%): -7.7 % The absolute BMD change from previous, -0.082 g/cm2, is greater than least significant change: Yes The absolute BMD change from baseline, -0.065 g/cm2, is greater than least significant change: Yes Spine results: Exam Date ? BMD ? T-score ? 04/06/2018 ?1.401 g/cm2 ?? 1.8 ? 11/26/2022 ? 1.607 g/cm2 ?? 3.5 ? Change vs. Previous (difference): 0.206 g/cm2 Change vs. Previous (%): 14.7 % The absolute BMD change from previous, 0.206 g/cm2, is greater than the least significant change: Yes The absolute BMD change from baseline, 0.206 g/cm2, is greater than the least significant change: Yes ----- FINDINGS: Left Hip: Femur Neck: BMD = 0.938 g/cm2 T-score = -0.7 ?Z-score = 1.4 Total Hip: BMD = 0.957 g/cm2 T-score = -0.4 ?Z-score = 1.5 Right Hip: Femur Neck: BMD = 1.028 g/cm2 T-score = -0.1 ?? Z-score = 2.0 Total Hip: BMD = 0.999 g/cm2 T-score = -0.1 ?Z-score = 1.9 Lumbar Spine: L1: BMD = 1.502 g/cm2 L2: BMD = 1.721 g/cm2 L3: BMD = 1.599 g/cm2 Total Lumbar Spine (L1-L3): BMD = 1.607 g/cm2 T-score = 3.5 ?Z-score = 5.3 Trabecular Bone Score: ??L1-L3: TBS = 1.357 < 1.23: low 1.23 -1.31: borderline ?? > 1.31: normal ? A low TBS has been associated with increased risk of fractures in certain populations. TBS should not be used alone to determine treatment recommendations. It can be used in conjunction with BMD and FRAX to inform management. Please note: A more comprehensive DXA report, including images and graphs, is available in [employer]. In the absence of other causes of low BMD or demonstrated skeletal fragility, osteoporosis may be diagnosed in post-menopausal women and men at or above age 50 when the T-score is at or below -2.5 as defined by the WHO. Low bone density is present at T-scores between -1 and - 2.5. The diagnosis in pre-menopausal women and men < age 50 can be based on low bone density or evidence of skeletal fragility in the appropriate clinical setting. Degenerative changes are present which may spuriously elevate the spine BMD measurement. Patient does not meet ISCD guidelines for FRAX calculations. (T-score) Procedure Note Brad Lyn M.D. - 11/26/2022 EXAM: BMD BONE DENSITY SPINE HIPS Bone Mineral Density (BMD) analysis performed on Wisairwith serial number [id number]. COMPARISON: Serial Comparisons Left Total Hip results: Exam Date BMD T-score 06/18/2009 1.010 g/cm2 0.0 06/18/2009 1.012 g/cm2 0.0 04/06/2018 1.016 g/cm2 0.1 11/26/2022 0.957 g/cm2 -0.4 Change vs. Previous (difference): -0.059 g/cm2 *Change vs. Previous (%): -5.8 % The absolute BMD change from previous, -0.059 g/cm2, is greater than least significant change: Yes The absolute BMD change from baseline, -0.053 g/cm2, is greater than least significant change: Yes Right Total Hip results: Exam Date BMD T-score 06/18/2009 1.075 g/cm2 0.5 06/18/2009 1.078 g/cm2 0.6 04/06/2018 1.104 g/cm2 0.8 11/26/2022 0.999 g/cm2 -0.1 Change vs. Previous (difference): -0.105 g/cm2 *Change vs. Previous (%): -9.5 % The absolute BMD change from previous, -0.105 g/cm2, is greater than least significant change: Yes The absolute BMD change from baseline, -0.076 g/cm2, is greater than least significant change: Yes Combined Total Hip results: Exam Date BMD T-score 06/18/2009 1.043 g/cm2 0.3 06/18/2009 1.045 g/cm2 0.3 04/06/2018 1.060 g/cm2 0.4 11/26/2022 0.978 g/cm2 -0.2 Change vs. Previous (difference): -0.082 g/cm2 *Change vs. Previous (%): -7.7 % The absolute BMD change from previous, -0.082 g/cm2, is greater than least significant change: Yes The absolute BMD change from baseline, -0.065 g/cm2, is greater than least significant change: Yes Spine results: Exam Date BMD T-score 04/06/2018 1.401 g/cm2 1.8 11/26/2022 1.607 g/cm2 3.5 Change vs. Previous (difference): 0.206 g/cm2 Change vs. Previous (%): 14.7 % The absolute BMD change from previous, 0.206 g/cm2, is greater than the least significant change: Yes The absolute BMD change from baseline, 0.206 g/cm2, is greater than the least significant change: Yes ----- FINDINGS: Left Hip: Femur Neck: BMD = 0.938 g/cm2 T-score = -0.7 Z-score = 1.4 Total Hip: BMD = 0.957 g/cm2 T-score = -0.4 Z-score = 1.5 Right Hip: Femur Neck: BMD = 1.028 g/cm2 T-score = -0.1 Z-score = 2.0 Total Hip: BMD = 0.999 g/cm2 T-score = -0.1 Z-score = 1.9 Lumbar Spine: L1: BMD = 1.502 g/cm2 L2: BMD = 1.721 g/cm2 L3: BMD = 1.599 g/cm2 Total Lumbar Spine (L1-L3): BMD = 1.607 g/cm2 T-score = 3.5 Z-score = 5.3 Trabecular Bone Score: L1-L3: TBS = 1.357 < 1.23: low 1.23 -1.31: borderline > 1.31: normal A low TBS has been associated with increased risk of fractures in certainpopulations. TBS should not be used alone to determine treatment recommendations. It can be usedin conjunction with BMD and FRAX to inform management. Please note: A more comprehensive DXA report, including images and graphs,is available in [employer]. In the absence of other causes of low BMD or demonstrated skeletalfragility, osteoporosis may be diagnosed in post-menopausal women and men at or above age 50 when theT-score is at or below -2.5 as defined by the WHO. Low bone density is present at T-scores between -1and - 2.5. The diagnosis in pre-menopausal women and men < age 50 can be based on low bone density orevidence of skeletal fragility in the appropriate clinical setting. Degenerative changes are present which may spuriously elevate the spineBMD measurement. Patient does not meet ISCD guidelines for FRAX calculations. (T-score) IMPRESSION: Normal bone mineral density. Deshawn UGALDE DXA PROCEDURES documented in this encounter Visit Diagnoses Diagnosis Pain Low Back Unspecified Chronic Kidney Disease Stage 5 Glomerular Filtration Rate Less Than 15 (HCC) documented in this encounter Additional Health Concerns Assessment Noted Time PHQ-9 Depression Total Score: 5 06/25/19 16 1:22 PM STATION BAGGAGE AGENT documented as of this encounter Care Teams Bull Chain Operator Relationship Specialty Start Date End Date Allyn Alfredo M.D. [address] [phone] PCP - General Family Medicine 04/05/21 documented as of this encounter
--- OUTSIDE RECORDS SUMMARY | 2023-06-24 18:16 | XMS_ITS | Encounter Summary ---
Author Name Unknown Organization [facility] Address [address] [place] [address] Care Team Providers Care Carriage Dogger Name Role Phone Allyn Alfredo M.D. Primary Care Pro vider Encounter Details Date Type Department Care Team (Late st Contact Info) Description 12/30/2022 Documentation Division of Nephrology and Hypertension in [place], [place] [address] [place] [phone] Wilfrid Lincoln Jr., D.O. [address] [place] [phone] Social History Tobacco Use Types Packs/Day Years [...] How often do you attend chur or judaism services? 1 to 4 times [...] Sex Assigned at Female 03/27/2017 3:30 PM LAMPS TESTER AND INSPECTOR Gender Identity Female 03/27/2017 3:30 PM LAMPS TESTER AND INSPECTOR Sexual Orientation Straight 03/27/2017 3: 30 PM LAMPS TESTER AND INSPECTOR documented as of this encounter Progress Notes * Wilfrid Lincoln Jr., D.O. - 12/30/2022 11:55 AM CDT Care coordination-peritoneal dialysis monthly visit note: Please see the documents viewer tab, for a comprehensive [facility] dialysis note from today's date. She is struggling with profound fatigue. She is also developed myoclonus. The fatigue has been progressive over the past several months despite us achieving her dialysis adequacy, nearing her hemoglobin target at 9.9, good correction of her other metabolic factors, and her glycemic control improving. Her Dexcom suggests that her current average blood glucose is 181 averaged over the past 3 months. She has not had hypoglycemic events recently, and has been free of dramatically elevated glucose levels. She is set for a sleep study early next month. We had increased her gabapentin at her last visit to 300 mg at bedtime. We discussed that there seems to be an association of her progressive fatigue with the increasing doses of gabapentin. She mentions that some of her poor sleep at night, which she acknowledges, is due to restless and uncomfortable legs. We discussed a change in plan with respect to prevention of her neuropathy. Please see below. We had also discussed the potential trial of CBD, and glucosamine chondroitin for her joint pains. Her daughter is also desiring a consult with our dietitian, regarding a 2 week meal plan, and othersuggestions. I appreciate that the patient's phosphorus level has once again increase this month to7. Her albumin level is satisfactory at 3.8. Additionally, for over 2 weeks now she has had progressive pain in her right 2nd toe, associated with what appears to be pressure trauma to the dorsum of the toe. She has an allergy she believes to penicillin but has tolerated Keflex in the past. On exam: Her dialysis exit site is perfect. On her right 2nd toe she has erythema and swelling with 2 darkened areas of pressure. Her these eschars are approximately 1-2 mm. Impression: 1. Sleep Disorder 2. Diabetic peripheral neuropathy 3. Restless legs syndrome 4. End-stage renal disease on peritoneal dialysis 5. Cellulitis right 2nd toe Changes to plan: 1. Gabapentin decreased dose to 100 mg at HS 2. Begin Mirapex 0.125 mg at bedtime 3. Keflex 500 mg twice daily for 10 days 4. Consider CBD gummies 1 at bedtime 5. Consider glucosamine chondroitin 1 orally in the a.m. 6. Asked for dietary consult. documented in this encounter Plan of Treatment Upcoming Encounters Date Type Department Care Team (Latest Contact Info) Description 07/09/2023 8:20 AM LAMPS TESTER AND INSPECTOR Appointment Department of Laboratory Medicine in [address] [phone] Allyn Alfredo M.D. [address] [place] [phone] 07/09/2023 9:15 AM LAMPS TESTER AND INSPECTOR Office Visit Department of Family Medicine, [facility], in [address] [phone] Allyn Alfredo M.D. [address] [place] [phone] 07/16/2023 12:06 PM LAMPS TESTER AND INSPECTOR Hospital Encounter Post Anesthesia Care Unit in [address] [phone] Cristhian [place] M.B., Ch.B., Ph.D. [address] [place] [phone] 07/16/2023 12:06 PM LAMPS TESTER AND INSPECTOR - 07/16/2023 3:35 PM LAMPS TESTER AND INSPECTOR Surgery RST ROMB MAIN OR [facility] [place] [phone] Cristhian [place] M.B., Ch.B., Ph.D. [address] [place] [phone] CREATION FISTULA RADIOCEPHALIC ARTERIOVENOUS 07/20/2023 11:00 AM CDT Office Visit Department of Orthopedic Surgery in [address] [phone] Cindy Walker D.P.M. [address] [place] [phone] Discharge Disposition: Home or Self Care 08/25/2023 3:15 PM CDT Telemedicine Department of Sleep Medicine in [place], [place] [address] [place] [phone] Emilee Emanuel APRN, C.N.P., D.N.P., M.S.N. [address] [place] [phone] Scheduled Procedures Name Priority Associated Diagnoses Date/Ti me CREATION FISTULA RADIOCEPHALIC ARTERIOVENOUS Chronic Kidney Disease Stage 5 Glomerular Filtration Rate Less Than 15 (HCC) 07/16/2023 12:06 PM LAMPS TESTER AND INSPECTOR CREATION FISTULA BRACHIOCEPHALIC ARTERIOVENOUS Chronic Kidney Disease Stage 5 Glomerular Filtration Rate Less Than 15 (HCC) 07/16/2023 12:06 PM LAMPS TESTER AND INSPECTOR documented as of this encounter Visit Diagnoses Not on filedocumented in this encounter Additional Health Concerns Assessment Noted Time PHQ-9 Depression Total Score: 5 06/25/19 16 1:22 PM LAMPS TESTER AND INSPECTOR documented as of this encounter Care Teams Carriage Dogger Relationship Specialty Start Date End Date Allyn Alfredo M.D. [id number] [place] [phone] PCP - General Family Medicine 04/05/21 documented as of this encounter
--- OUTSIDE RECORDS SUMMARY | 2023-06-24 18:16 | XMS_ITS | Encounter Summary ---
Author Name Unknown Organization [facility] Address [address] [place] [address] Care Team Providers Care Pneumatic Tester Name Role Phone Allyn Alfredo M.D. Primary Care Pro vider Encounter Details Date Type Department Care Team (Late st Contact Info) Description 12/30/2022 Orders Only Division of Nephrology and Hypertension in [place], [place] [address] [place] [phone] Wilfrid Lincoln Jr., D.O. [address] [place] [phone] Social History Tobacco Use Types Packs/Day Years [...] How often do you attend chur or jain services? 1 to 4 times per year [...] Answer Date Recorded PHQ-2 Score 0 07/25/2022 [facility] - Occupational [...] Sex Assigned at Female 03/27/2017 3:30 PM MACHINE FITTER Gender Identity Female 03/27/2017 3:30 PM MACHINE FITTER Sexual Orientation Straight 03/27/2017 3: 30 PM MACHINE FITTER documented as of this encounter Plan of Treatment Upcoming Encounters Date Type Department Care Team (Latest Contact Info) Description 07/09/2023 8:20 AM MACHINE FITTER Appointment Department of Laboratory Medicine in [address] [phone] Allyn Alfredo M.D. [address] [place] [phone] 07/09/2023 9:15 AM MACHINE FITTER Office Visit Department of Family Medicine, [facility], in [address] [phone] Allyn Alfredo M.D. [address] [place] [phone] 07/16/2023 12:06 PM MACHINE FITTER Hospital Encounter Post Anesthesia Care Unit in [place] [phone] [place] [phone] Cristhian [place] M.B., Ch.B., Ph.D. [address] [place] [phone] 07/16/2023 12:06 PM MACHINE FITTER - 07/16/2023 3:35 PM MACHINE FITTER Surgery RST ROMB MAIN OR [address] [place] [phone] Cristhian [place] M.B., Ch.B., Ph.D. [address] [place] [phone] CREATION FISTULA RADIOCEPHALIC ARTERIOVENOUS 07/20/2023 11:00 AM CDT Office Visit Department of Orthopedic Surgery in [address] [phone] Cindy Walker D.PLeidaMLeida [address] [place] [phone] Discharge Disposition: Home or Self Care 08/25/2023 3:15 PM CDT Telemedicine Department of Sleep Medicine in [place], [place] [address] [place] [phone] Emilee Emanuel APRN, C.N.P., D.N.P., M.S.N. [address] [phone] Scheduled Procedures Name Priority Associated Diagnoses Date/Ti me CREATION FISTULA RADIOCEPHALIC ARTERIOVENOUS Chronic Kidney Disease Stage 5 Glomerular Filtration Rate Less Than 15 (HCC) 07/16/2023 12:06 PM MACHINE FITTER CREATION FISTULA BRACHIOCEPHALIC ARTERIOVENOUS Chronic Kidney Disease Stage 5 Glomerular Filtration Rate Less Than 15 (HCC) 07/16/2023 12:06 PM MACHINE FITTER documented as of this encounter Visit Diagnoses Not on filedocumented in this encounter Additional Health Concerns Assessment Noted Time PHQ-9 Depression Total Score: 5 06/25/19 16 1:22 PM MACHINE FITTER documented as of this encounter Care Teams Pneumatic Tester Relationship Specialty Start Date End Date Allyn Alfredo M.D. [address] [phone] PCP - General Family Medicine 04/05/21 documented as of this encounter
--- OUTSIDE RECORDS SUMMARY | 2023-06-24 18:16 | XMS_ITS | Encounter Summary ---
Author Name Unknown Organization [facility] Address [address] [place] [address] Care Team Providers Care Teacher Lip Reading Name Role Phone Allyn Alfredo M.D. Primary Care Pro vider Reason for Visit * Reason Comments Med Refill Encounter Details Date Type Department Care Team (Late st Contact Info) Description 12/31/2022 Refill Division of Nephrology and Hypertension in [place], [place] [address] [place] [phone] Wilfrid Lincoln Jr., D.O. [address] [place] [phone] Med Refill Social History Tobacco Use Types [...] any clubs o r organizations such as mandaen groups, unions, fraternal or athletic groups, or [...] Answer Date Recorded PHQ-2 Score 0 07/25/2022 [facility] of Occupat ional Health [...] Sex Assigned at Female 03/27/2017 3:30 PM CORPORATE WEBMASTER Gender Identity Female 03/27/2017 3:30 PM CORPORATE WEBMASTER Sexual Orientation Straight 03/27/2017 3: 30 PM CORPORATE WEBMASTER documented as of this encounter Plan of Treatment Upcoming Encounters Date Type Department Care Team (Latest Contact Info) Description 07/09/2023 8:20 AM CORPORATE WEBMASTER Appointment Department of Laboratory Medicine in [address] [phone] Allyn Alfredo M.D. [address] [place] [phone] 07/09/2023 9:15 AM CORPORATE WEBMASTER Office Visit Department of Family Medicine, [facility], in [address] [phone] Allyn Alfredo M.D. [address] [place] [phone] 07/16/2023 12:06 PM CORPORATE WEBMASTER Hospital Encounter Post Anesthesia Care Unit in [address] [phone] Cristhian Grant M.B., Ch.B., Ph.D. [address] [place] [phone] 07/16/2023 12:06 PM CORPORATE WEBMASTER - 07/16/2023 3:35 PM CORPORATE WEBMASTER Surgery RST ROMB MAIN OR [address] [place] [phone] Cristhian Grant M.B., Ch.B., Ph.D. [address] [place] [phone] CREATION FISTULA RADIOCEPHALIC ARTERIOVENOUS 07/20/2023 11:00 AM CDT Office Visit Department of Orthopedic Surgery in [address] [phone] Cindy Walker D.P.M. [address] [place] [phone] Discharge Disposition: Home or Self Care 08/25/2023 3:15 PM CDT Telemedicine Department of Sleep Medicine in [place], [place] [address] [place] [phone] Emilee Emanuel APRN, C.N.P., D.N.P., M.S.N. 2[address] [place] [phone] Scheduled Procedures Name Priority Associated Diagnoses Date/Ti me CREATION FISTULA RADIOCEPHALIC ARTERIOVENOUS Chronic Kidney Disease Stage 5 Glomerular Filtration Rate Less Than 15 (HCC) 07/16/2023 12:06 PM CORPORATE WEBMASTER CREATION FISTULA BRACHIOCEPHALIC ARTERIOVENOUS Chronic Kidney Disease Stage 5 Glomerular Filtration Rate Less Than 15 (HCC) 07/16/2023 12:06 PM CORPORATE WEBMASTER documented as of this encounter Visit Diagnoses Not on filedocumented in this encounter Additional Health Concerns Assessment Noted Time PHQ-9 Depression Total Score: 5 06/25/19 16 1:22 PM CORPORATE WEBMASTER documented as of this encounter Care Teams Teacher Lip Reading Relationship Specialty Start Date End Date Byers Allyn Ryan M.D. [address] [place] [phone] PCP - General Family Medicine 04/05/21 documented as of this encounter
--- OUTSIDE RECORDS SUMMARY | 2023-06-24 18:16 | XMS_ITS | Encounter Summary ---
Author Name Unknown Organization [facility] Address [address] [place] [address] Care Team Providers Care Laryngologist Name Role Phone Allyn Alfredo M.D. Primary Care Pro vider Reason for Visit * Reason Comments Med Refill Encounter Details Date Type Department Care Team (Late st Contact Info) Description 01/01/2023 Refill Department of Family Medicine, [facility], in [address] [phone] Allyn Alfredo M.D. [address] [place] [phone] Med Refill Social History Tobacco Use Types [...] often do you attend chur ch or muslim services? 1 to 4 times [...] Answer Date Recorded PHQ-2 Score 0 07/25/2022 [facility] [place] of Occupat ional Health - Occupational Stress [...] in a assisted (including now)? No 09/11/2022 Nutrition Answer Date [...] Sex Assigned at Female 03/27/2017 3:30 PM COMPLEX DIRECTOR Gender Identity Female 03/27/2017 3:30 PM COMPLEX DIRECTOR Sexual Orientation Straight 03/27/2017 3: 30 PM COMPLEX DIRECTOR documented as of this encounter Plan of Treatment Upcoming Encounters Date Type Department Care Team (Latest Contact Info) Description 07/09/2023 8:20 AM COMPLEX DIRECTOR Appointment Department of Laboratory Medicine in [address] [phone] Allyn Alfredo M.D. [address] [place] [phone] 07/09/2023 9:15 AM COMPLEX DIRECTOR Office Visit Department of Family Medicine, [facility], in [address] [phone] Allyn Alfredo M.D. [address] [place] [phone] 07/16/2023 12:06 PM COMPLEX DIRECTOR Hospital Encounter Post Anesthesia Care Unit in [address] [phone] Cristhian Grant M.B., Ch.B., Ph.D. [address] [place] [phone] 07/16/2023 12:06 PM COMPLEX DIRECTOR - 07/16/2023 3:35 PM COMPLEX DIRECTOR Surgery RST ROMB MAIN OR [facility] [place] [phone] Cristhian Grant M.B., Ch.B., Ph.D. [address] [place] [phone] CREATION FISTULA RADIOCEPHALIC ARTERIOVENOUS 07/20/2023 11:00 AM CDT Office Visit Department of Orthopedic Surgery in [address] [phone] Cindy Walker D.P.M. [address] [place] [phone] Discharge Disposition: Home or Self Care 08/25/2023 3:15 PM CDT Telemedicine Department of Sleep Medicine in [place], [place] 2[address] [place] [phone] Emilee Emanuel APRN, C.N.P., D.N.P., M.S.N. 2[address] [place] [phone] Scheduled Procedures Name Priority Associated Diagnoses Date/Ti me CREATION FISTULA RADIOCEPHALIC ARTERIOVENOUS Chronic Kidney Disease Stage 5 Glomerular Filtration Rate Less Than 15 (HCC) 07/16/2023 12:06 PM COMPLEX DIRECTOR CREATION FISTULA BRACHIOCEPHALIC ARTERIOVENOUS Chronic Kidney Disease Stage 5 Glomerular Filtration Rate Less Than 15 (HCC) 07/16/2023 12:06 PM COMPLEX DIRECTOR documented as of this encounter Visit Diagnoses Not on filedocumented in this encounter Additional Health Concerns Assessment Noted Time PHQ-9 Depression Total Score: 5 06/25/19 16 1:22 PM COMPLEX DIRECTOR documented as of this encounter Care Teams Laryngologist Relationship Specialty Start Date End Date Allyn Alfredo M.D. [address] [place] [phone] PCP - General Family Medicine 04/05/21 documented as of this encounter
--- OUTSIDE RECORDS SUMMARY | 2023-06-24 18:16 | XMS_ITS | Encounter Summary ---
Author Name Unknown Organization [facility] Address [address] [place] [address] Care Team Providers Care Circulation Tender Name Role Phone Allyn Alfredo M.D. Primary Care Pro vider Reason for Visit * Reason Comments Med Refill Encounter Details Date Type Department Care Team (Late st Contact Info) Description 12/25/2022 Refill Department of Family Medicine, [facility], in [address] [phone] Allyn Alfredo M.D. [address] [place] [phone] Med Refill Social History Tobacco Use Types [...] often do you attend chur ch or church services? 1 to 4 times [...] Answer Date Recorded PHQ-2 Score 0 07/25/2022 [facility] [place] of Occupat ional Health - Occupational Stress [...] in a custodial (including now)? No 09/11/2022 Nutrition Answer Date [...] Sex Assigned at Female 03/27/2017 3:30 PM HEEL CEMENTER Gender Identity Female 03/27/2017 3:30 PM HEEL CEMENTER Sexual Orientation Straight 03/27/2017 3: 30 PM HEEL CEMENTER documented as of this encounter Miscellaneous Notes * Telephone Encounter - Marva Valerio 12/25/2022 11:48 AM CDT Lab Results Component Value Date HGBA1C 7.2 (H) 07/29/2022 documented in this encounter Plan of Treatment Upcoming Encounters Date Type Department Care Team (Latest Contact Info) Description 07/09/2023 8:20 AM HEEL CEMENTER Appointment Department of Laboratory Medicine in [address] [phone] Allyn Alfredo M.D. [address] [place] [phone] 07/09/2023 9:15 AM HEEL CEMENTER Office Visit Department of Family Medicine, [facility], in [address] [phone] Allyn Alfredo M.D. [address] [place] [phone] 07/16/2023 12:06 PM HEEL CEMENTER Hospital Encounter Post Anesthesia Care Unit in [address] [phone] Cristhian Grant M.B., Ch.B., Ph.D. [address] [place] [phone] 07/16/2023 12:06 PM HEEL CEMENTER - 07/16/2023 3:35 PM HEEL CEMENTER Surgery RST ROMB MAIN OR [address] [place] [phone] Cristhian Grant M.B., Ch.B., Ph.D. [address] [place] [phone] CREATION FISTULA RADIOCEPHALIC ARTERIOVENOUS 07/20/2023 11:00 AM CDT Office Visit Department of Orthopedic Surgery in [address] [phone] Cindy Walker D.PLeidaM. [address] [place] [phone] Discharge Disposition: Home or Self Care 08/25/2023 3:15 PM CDT Telemedicine Department of Sleep Medicine in [place], [place] [address] [place] [phone] Emilee Emanuel APRN, C.N.P., D.N.P., M.S.N. [address] [place] [phone] Scheduled Procedures Name Priority Associated Diagnoses Date/Ti me CREATION FISTULA RADIOCEPHALIC ARTERIOVENOUS Chronic Kidney Disease Stage 5 Glomerular Filtration Rate Less Than 15 (HCC) 07/16/2023 12:06 PM HEEL CEMENTER CREATION FISTULA BRACHIOCEPHALIC ARTERIOVENOUS Chronic Kidney Disease Stage 5 Glomerular Filtration Rate Less Than 15 (HCC) 07/16/2023 12:06 PM HEEL CEMENTER documented as of this encounter Visit Diagnoses Not on filedocumented in this encounter Additional Health Concerns Assessment Noted Time PHQ-9 Depression Total Score: 5 06/25/19 16 1:22 PM HEEL CEMENTER documented as of this encounter Care Teams Circulation Tender Relationship Specialty Start Date End Date Allyn Alfredo M.D. [address] [phone] PCP - General Family Medicine 04/05/21 documented as of this encounter
--- OUTSIDE RECORDS SUMMARY | 2023-06-24 18:16 | XMS_ITS | Encounter Summary ---
Author Name Unknown Organization [facility] Address [address] [place] [address] Care Team Providers Care Realtime Reporter Name Role Phone Allyn Alfredo M.D. Primary Care Pro vider Encounter Details Date Type Department Care Team (Latest Contact Info) Description 11/25/2022 2:30 PM CDT Clinical Communication Virtual Review in [place], [place] [address] [place], [place] [phone] Social History Tobacco Use Types Packs/Day Years [...] often do you attend chur ch or restoration services? 1 to 4 times per year 09/11/2022 Do you belong to any clubs o r organizations such as lutheran groups, unions, fraternal or athletic groups, or [...] Answer Date Recorded PHQ-2 Score 0 07/25/2022 [facility] - Occupational Stress Questionnaire Answer [...] in a longterm (including now)? No 09/11/2022 Nutrition Answer Date [...] Sex Assigned at Female 03/27/2017 3:30 PM SENIOR BIOINFORMATICS SPECIALIST Gender Identity Female 03/27/2017 3:30 PM SENIOR BIOINFORMATICS SPECIALIST Sexual Orientation Straight 03/27/2017 3: 30 PM SENIOR BIOINFORMATICS SPECIALIST documented as of this encounter Plan of Treatment Upcoming Encounters Date Type Department Care Team (Latest Contact Info) Description 07/09/2023 8:20 AM SENIOR BIOINFORMATICS SPECIALIST Appointment Department of Laboratory Medicine in [address] [phone] Allyn Alfredo M.D. [address] [place] [phone] 07/09/2023 9:15 AM SENIOR BIOINFORMATICS SPECIALIST Office Visit Department of Family Medicine, [facility], in [address] [phone] Allyn Alfredo M.D. [address] [place] [phone] 07/16/2023 12:06 PM SENIOR BIOINFORMATICS SPECIALIST Hospital Encounter Post Anesthesia Care Unit in [place] [phone] [place] [phone] Cristhian Grant M.B., Ch.B., Ph.D. [address] [place] [phone] 07/16/2023 12:06 PM SENIOR BIOINFORMATICS SPECIALIST - 07/16/2023 3:35 PM SENIOR BIOINFORMATICS SPECIALIST Surgery RST ROMB MAIN OR [facility] [place] [phone] Cristhian Grant M.B., Ch.B., Ph.D. [address] [place] [phone] CREATION FISTULA RADIOCEPHALIC ARTERIOVENOUS 07/20/2023 11:00 AM CDT Office Visit Department of Orthopedic Surgery in [address] [phone] Cindy Walker D.P.M. [address] [place] [phone] Discharge Disposition: Home or Self Care 08/25/2023 3:15 PM CDT Telemedicine Department of Sleep Medicine in [place], [place] [address] [place] [phone] Emilee Emanuel APRN, C.N.P., D.N.P., M.S.N. [address], [place] [phone] Scheduled Procedures Name Priority Associated Diagnoses Date/Ti me CREATION FISTULA RADIOCEPHALIC ARTERIOVENOUS Chronic Kidney Disease Stage 5 Glomerular Filtration Rate Less Than 15 (HCC) 07/16/2023 12:06 PM SENIOR BIOINFORMATICS SPECIALIST CREATION FISTULA BRACHIOCEPHALIC ARTERIOVENOUS Chronic Kidney Disease Stage 5 Glomerular Filtration Rate Less Than 15 (HCC) 07/16/2023 12:06 PM SENIOR BIOINFORMATICS SPECIALIST documented as of this encounter Visit Diagnoses Not on filedocumented in this encounter Additional Health Concerns Assessment Noted Time PHQ-9 Depression Total Score: 5 06/25/19 16 1:22 PM SENIOR BIOINFORMATICS SPECIALIST documented as of this encounter Care Teams Realtime Reporter Relationship Specialty Start Date End Date Allyn Alfredo M.D. NPBoston: [phone] [address] [phone] PCP - General Family Medicine 04/05/21 documented as of this encounter
--- OUTSIDE RECORDS SUMMARY | 2023-06-24 18:16 | XMS_ITS | Encounter Summary ---
Author Name Unknown Organization [facility] Address [address] [place] [address] Care Team Providers Care Analytical Lead Name Role Phone Allyn Alfredo M.D. Primary Care Pro vider Reason for Visit * Reason Comments Med Refill Encounter Details Date Type Department Care Team (Late st Contact Info) Description 12/24/2022 Refill Department of Family Medicine, [facility], in [address] [phone] Allyn Alfredo M.D. [address] [place] [phone] Med Refill Social History Tobacco Use Types [...] Answer Date Recorded PHQ-2 Score 0 07/25/2022 [facility] [place] of Occupat ional Health - Occupational Stress [...] in a usp (including now)? No 09/11/2022 Nutrition Answer Date [...] Sex Assigned at Female 03/27/2017 3:30 PM V BELT INSPECTOR Gender Identity Female 03/27/2017 3:30 PM V BELT INSPECTOR Sexual Orientation Straight 03/27/2017 3: 30 PM V BELT INSPECTOR documented as of this encounter Miscellaneous Notes * Telephone Encounter - Evelyn Madera - 12/24/2022 1:42 PM CDT Lab Results Component Value Date HGBA1C 7.2 (H) 07/29/2022 documented in this encounter Plan of Treatment Upcoming Encounters Date Type Department Care Team (Latest Contact Info) Description 07/09/2023 8:20 AM V BELT INSPECTOR Appointment Department of Laboratory Medicine in [address] [phone] Allyn Alfredo M.D. [address] [place] [phone] 07/09/2023 9:15 AM V BELT INSPECTOR Office Visit Department of Family Medicine, [facility], in [address] [phone] Allyn Alfredo M.D. [address] [place] [phone] 07/16/2023 12:06 PM V BELT INSPECTOR Hospital Encounter Post Anesthesia Care Unit in [address] [phone] Cristhian Grant M.B., Ch.B., Ph.D. [address] [place] [phone] 07/16/2023 12:06 PM V BELT INSPECTOR - 07/16/2023 3:35 PM V BELT INSPECTOR Surgery RST ROMB MAIN OR [address] [place] [phone] Cristhian Grant M.B., Ch.B., Ph.D. [address] [place] [phone] CREATION FISTULA RADIOCEPHALIC ARTERIOVENOUS 07/20/2023 11:00 AM CDT Office Visit Department of Orthopedic Surgery in [address] [phone] Cindy Walker D.P.M. [address] [place] [phone] Discharge Disposition: Home or Self Care 08/25/2023 3:15 PM CDT Telemedicine Department of Sleep Medicine in [place], [place] [address] [place] [phone] Emilee Emanuel APRN, C.N.P., D.N.P., M.S.N. [address] [place] [phone] Scheduled Procedures Name Priority Associated Diagnoses Date/Ti me CREATION FISTULA RADIOCEPHALIC ARTERIOVENOUS Chronic Kidney Disease Stage 5 Glomerular Filtration Rate Less Than 15 (HCC) 07/16/2023 12:06 PM V BELT INSPECTOR CREATION FISTULA BRACHIOCEPHALIC ARTERIOVENOUS Chronic Kidney Disease Stage 5 Glomerular Filtration Rate Less Than 15 (HCC) 07/16/2023 12:06 PM V BELT INSPECTOR documented as of this encounter Visit Diagnoses Not on filedocumented in this encounter Additional Health Concerns Assessment Noted Time PHQ-9 Depression Total Score: 5 06/25/19 16 1:22 PM V BELT INSPECTOR documented as of this encounter Care Teams Analytical Lead Relationship Specialty Start Date End Date Allyn Alfredo M.D. [address] [phone] PCP - General Family Medicine 04/05/21 documented as of this encounter
--- OUTSIDE RECORDS SUMMARY | 2023-06-24 18:17 | XMS_ITS | Encounter Summary ---
Author Name Unknown Organization [facility] Address [address] [place] [address] Care Team Providers Care Milling Machine Operator Name Role Phone Allyn Alfredo M.D. Primary Care Pro vider Encounter Details Date Type Department Care Team (Latest Contact Info) Description 2022 Clinical Communication Department of Ophthalmology in [place], [place] [address] [place] [phone] Provider, Unknown Social History Tobacco Use Types Packs/Day Years [...] often do you attend chur ch or pentecostalism services? 1 to 4 times per year 09/11/2022 Do you belong to any clubs o r organizations such as yazidism groups, unions, fraternal or athletic groups, or [...] Answer Date Recorded PHQ-2 Score 0 07/25/2022 [facility] of Occupat ional Health - Occupational Stress [...] Sex Assigned at Female 03/27/2017 3:30 PM RECORDING STUDIO SET UP WORKER Gender Identity Female 03/27/2017 3:30 PM RECORDING STUDIO SET UP WORKER Sexual Orientation Straight 03/27/2017 3: 30 PM RECORDING STUDIO SET UP WORKER documented as of this encounter Plan of Treatment Upcoming Encounters Date Type Department Care Team (Latest Contact Info) Description 07/09/2023 8:20 AM RECORDING STUDIO SET UP WORKER Appointment Department of Laboratory Medicine in [address] [phone] Allyn Alfredo M.D. [address] [place] [phone] 07/09/2023 9:15 AM RECORDING STUDIO SET UP WORKER Office Visit Department of Family Medicine, [facility], in [address] [phone] Allyn Alfredo M.D. [address] [place] [phone] 07/16/2023 12:06 PM RECORDING STUDIO SET UP WORKER Hospital Encounter Post Anesthesia Care Unit in [place] [address] [place] [phone] Cristhian Grant M.B., Ch.B., Ph.D. [address] [place] [phone] 07/16/2023 12:06 PM RECORDING STUDIO SET UP WORKER - 07/16/2023 3:35 PM RECORDING STUDIO SET UP WORKER Surgery RST ROMB MAIN OR [address] [place] [phone] Cristhian Grant M.B., Ch.B., Ph.D. [address] [place] [phone] CREATION FISTULA RADIOCEPHALIC ARTERIOVENOUS 07/20/2023 11:00 AM CDT Office Visit Department of Orthopedic Surgery in [address] [phone] Cindy Walker D.PAv [address] [place] [phone] Discharge Disposition: Home or Self Care 08/25/2023 3:15 PM CDT Telemedicine Department of Sleep Medicine in [place], [place] [address] [phone] Emilee Emanuel APRN, C.N.P., D.N.P., M.S.N. [address], [place] [phone] Scheduled Procedures Name Priority Associated Diagnoses Date/Ti me CREATION FISTULA RADIOCEPHALIC ARTERIOVENOUS Chronic Kidney Disease Stage 5 Glomerular Filtration Rate Less Than 15 (HCC) 07/16/2023 12:06 PM RECORDING STUDIO SET UP WORKER CREATION FISTULA BRACHIOCEPHALIC ARTERIOVENOUS Chronic Kidney Disease Stage 5 Glomerular Filtration Rate Less Than 15 (HCC) 07/16/2023 12:06 PM RECORDING STUDIO SET UP WORKER documented as of this encounter Visit Diagnoses Not on filedocumented in this encounter Additional Health Concerns Assessment Noted Time PHQ-9 Depression Total Score: 5 06/25/19 16 1:22 PM RECORDING STUDIO SET UP WORKER documented as of this encounter Care Teams Milling Machine Operator Relationship Specialty Start Date End Date Allyn Alfredo M.D. [address] [phone] PCP - General Family Medicine 04/05/21 documented as of this encounter
--- OUTSIDE RECORDS SUMMARY | 2023-06-24 18:17 | XMS_ITS | Encounter Summary ---
Author Name Unknown Organization [facility] Address [address] [place] [address] Care Team Providers Care Body Worker Name Role Phone Allyn Alfredo M.D. Primary Care Pro vider Reason for Referral * Outpatient (Routine) - Closed Specialty Diagnoses / Procedures Referred By Esther zamorano Referred To Contact Ophthalmology Олег Ariza M.D. [address] [place] [phone] [facility] Referral ID Status Reason Start Date Expiration Date Visits Re quested Visits Authorized [id number] Closed 2022 11/02/2025 1 1 Scheduling Instructions VTD both eyes in 4 weeks with D'lorenz Encounter Details Date Type Department Care Team (Latest Contact Info) Description 2022 3:00 PM CDT Comprehensive Visit Department of Ophthalmology in [place], [place] [address] [place] [phone] Олег Ariza M.D. [address] [place] [phone] Hemorrhage Vitreous Left (HCC) (Primary Dx); Diabetes Mellitus Type 2 With Diabetic Neuropathy (HCC); Diabetes Mellitus Type 2 With Diabetic Neuropathy Hyperglycemic (HCC) Social History Tobacco Use Types Packs/Day [...] Answer Date Recorded PHQ-2 Score 0 07/25/2022 [facility] - Occupational Stress Questionnaire Answer Date Recorded [...] money to buy more. Never true 09/12/19 Within the past 12 months, t he [...] Sex Assigned at Female 03/27/2017 3:30 PM ELECTRICAL ENGINEERING DIRECTOR Gender Identity Female 03/27/2017 3:30 PM ELECTRICAL ENGINEERING DIRECTOR Sexual Orientation Straight 03/27/2017 3: 30 PM ELECTRICAL ENGINEERING DIRECTOR documented as of this encounter Progress Notes * Олег Ariza M.D. - 2022 3:00 PM CDT Seen for Dr. Mcmanus ASSESSMENT/PLAN #Vitreous hemorrhage, left eye #History of retinal tear status post laser retinopexy 03/2022 She has 1 new big floater in the left eye that she noticed last night. On exam, she has new heme centrally as well as de-hemoglobinized blood settling inferiorly. There was a good view to the periphery and I do not see any new tears or breaks on scleral depressed exam in the left eye. Plan: - Return in [address] Mcmanus - Vitreous hemorrhage precautions discussed - Patient extensively counseled regarding symptoms of retinal detachment including shower of new floaters, new/increased flashing lights, or curtain coming over the vision documented in this encounter Plan of Treatment Upcoming Encounters Date Type Department Care Team (Latest Contact Info) Description 07/09/2023 8:20 AM ELECTRICAL ENGINEERING DIRECTOR Appointment Department of Laboratory Medicine in [address] [phone] Allyn Alfredo M.D. [address] [place] [phone] 07/09/2023 9:15 AM ELECTRICAL ENGINEERING DIRECTOR Office Visit Department of Family Medicine, [facility], in [address] [phone] Allyn Alfredo M.D. [address] [place] [phone] 07/16/2023 12:06 PM ELECTRICAL ENGINEERING DIRECTOR Hospital Encounter Post Anesthesia Care Unit in [place], [place] [address] [place] [phone] Cristhian Grant M.B., Ch.B., Ph.D. [address] [place] [phone] 07/16/2023 12:06 PM ELECTRICAL ENGINEERING DIRECTOR - 07/16/2023 3:35 PM ELECTRICAL ENGINEERING DIRECTOR Surgery [facility] MAIN OR [address] [place] [phone] Cristhian Grant M.B., Ch.B., Ph.D. [address] [place] [phone] CREATION FISTULA RADIOCEPHALIC ARTERIOVENOUS 07/20/2023 11:00 AM CDT Office Visit Department of Orthopedic Surgery in [address] [phone] Cindy Walker D.PLeidaM. [address] [place] [phone] Discharge Disposition: Home or Self Care 08/25/2023 3:15 PM CDT Telemedicine Department of Sleep Medicine in [place], [place] [address], [place] [phone] Emilee Emanuel APRN, C.N.P., D.N.P., M.S.N. [address], [place] [phone] Scheduled Procedures Name Priority Associated Diagnoses Date/Ti me CREATION FISTULA RADIOCEPHALIC ARTERIOVENOUS Chronic Kidney Disease Stage 5 Glomerular Filtration Rate Less Than 15 (HCC) 07/16/2023 12:06 PM ELECTRICAL ENGINEERING DIRECTOR CREATION FISTULA BRACHIOCEPHALIC ARTERIOVENOUS Chronic Kidney Disease Stage 5 Glomerular Filtration Rate Less Than 15 (HCC) 07/16/2023 12:06 PM ELECTRICAL ENGINEERING DIRECTOR Scheduled Referrals Name Type Priority Associated Diagnoses Order Schedule Ophthalmology office visit (clinic) Outpatient Referral Routine Expected: 11/10/2022 (Approximate), Expires: 02/04/2024 documented as of this encounter Visit Diagnoses Diagnosis Hemorrhage Vitreous Left (HCC)- Primary Diabetes Mellitus Type 2 With Diabetic Neuropathy (HCC) Diabetes Mellitus Type 2 With Diabetic Neuropathy Hyperglycemic (HCC) Chronic Kidney Disease Stage 5 Glomerular Filtration Rate Less Than 15 (HCC) documented in this encounter Additional Health Concerns Assessment Noted Time PHQ-9 Depression Total Score: 5 06/25/19 16 1:22 PM ELECTRICAL ENGINEERING DIRECTOR documented as of this encounter Care Teams Body Worker Relationship Specialty Start Date End Date Allyn Alfredo M.D. [address] [phone] PCP - General Family Medicine 04/05/21 documented as of this encounter
--- OUTSIDE RECORDS SUMMARY | 2023-06-24 18:17 | XMS_ITS | Encounter Summary ---
Author Name Unknown Organization [facility] Address [address] [place] [address] Care Team Providers Care Crab Picker Name Role Phone Allyn Alfredo M.D. Primary Care Pro vider Reason for Visit * Reason Comments I have a follow-up * Outpatient (Routine) - Closed Specialty Diagnoses / Procedures Referred By Esther zamorano Referred To Contact Ophthalmology Олег Ariza M.D. [address] [place] [phone] [facility] Referral ID Status Reason Start Date Expiration Date Visits Re quested Visits Authorized [id number] Closed 2022 11/02/2025 1 1 Encounter Details Date Type Department Care Team (Latest Contact Info) Description 11/18/2022 2:15 PM CDT Office Visit Department of Ophthalmology in [place], [place] [address] [place] [phone] Meme Drake M.D., M.S. 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 1 to 4 times per year 09/11/2022 Do you belong to any clubs o r organizations such as baptist groups, unions, fraternal or athletic groups, or [...] Date Recorded PHQ-2 Score 0 07/25/2022 [facility]at ional Health - [...] Sex Assigned at Female 03/27/2017 3:30 PM LEARNING AND DEVELOPMENT MANAGER Gender Identity Female 03/27/2017 3:30 PM LEARNING AND DEVELOPMENT MANAGER Sexual Orientation Straight 03/27/2017 3: 30 PM LEARNING AND DEVELOPMENT MANAGER documented as of this encounter Progress Notes * Meme Drake M.D., M.S. - 11/18/2022 2:15 PM CDT ASSESSMENT/PLAN # Vitreous hemorrhage, left eye 11/03/22 # History of retinal tear status post laser retinopexy 03/2022 No new holes or tears on exam today. Vitreous heme is resolving. No evidence of diabetic retinopathy, PEHCR, or any other intraocular changes as etiology of heme. Possible bridging vessel over tear. Plan: - Return in 4 weeks for repeat SD exam - Patient extensively counseled regarding symptoms of retinal detachment including shower of new floaters, new/increased flashing lights, or curtain coming over the vision Meme Drake MD PGY-3 Ophthalmology Resident documented in this encounter Plan of Treatment Upcoming Encounters Date Type Department Care Team (Latest Contact Info) Description 07/09/2023 8:20 AM LEARNING AND DEVELOPMENT MANAGER Appointment Department of Laboratory Medicine in [address] [phone] Allyn Alfredo M.D. [address] [place] [phone] 07/09/2023 9:15 AM LEARNING AND DEVELOPMENT MANAGER Office Visit Department of Family Medicine, [facility], in [address] [phone] Allyn Alfredo M.D. [address] [place] [phone] 07/16/2023 12:06 PM LEARNING AND DEVELOPMENT MANAGER Hospital Encounter Post Anesthesia Care Unit in [place], [place] [address] [place] [phone] Cristhian Grant M.B., Ch.B., Ph.D. [address] [place] [phone] 07/16/2023 12:06 PM LEARNING AND DEVELOPMENT MANAGER - 07/16/2023 3:35 PM LEARNING AND DEVELOPMENT MANAGER Surgery [facility] MAIN OR [address] [place] [phone] Cristhian Grant M.B., Ch.B., Ph.D. 200 [place] [phone] CREATION FISTULA RADIOCEPHALIC ARTERIOVENOUS 07/20/2023 11:00 AM CDT Office Visit Department of Orthopedic Surgery in [address] [phone] Cindy Walker D.PLeidaMLeida [address] [place] [phone] Discharge Disposition: Home or Self Care 08/25/2023 3:15 PM CDT Telemedicine Department of Sleep Medicine in [place], [place] [address] [phone] Emilee Emanuel APRN, C.N.P., D.N.P., M.S.N. 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 [address] [phone] PCP - General Family Medicine 04/05/21 documented as of this encounter
--- OUTSIDE RECORDS SUMMARY | 2023-06-24 18:17 | XMS_ITS | Encounter Summary ---
Author Name Unknown Organization [facility] Address [address] [place] [address] Care Team Providers Care Silver Steward Name Role Phone Allyn Alfredo M.D. Primary Care Pro vider Reason for Referral * Outpatient (Routine) - Authorized Specialty Diagnoses / Procedures Referred By Esther zamorano Referred To Contact Sleep Medicine Diagnoses Apnea Sleep Obstructive Restless Leg Syndrome Wilfrid Lincoln Jr., D.O. [address] [place] [phone] [facility] Referral ID Status Reason Start Date Expiration Date Visits Requested Visits Authorized [id number] Authorized Specialty Services Required 11/05/2022 11/05/2023 1 1 Encounter Details Date Type Department Care Team (Late st Contact Info) Description 11/05/2022 Orders Only Division of Nephrology and Hypertension in [place], [place] [address] [place] [phone] Wilfrid Lincoln Jr., D.O. [address] [place] [phone] Apnea Sleep Obstructive (Primary Dx); Restless Leg Syndrome Social History Tobacco Use Types Packs/Day Years [...] often do you attend chur ch or protestant services? 1 to 4 times per year 09/11/2022 Do you belong to any clubs o r organizations such as alevism groups, unions, fraternal or athletic groups, or [...] Answer Date Recorded PHQ-2 Score 0 07/25/2022 [facility] - Occupational Stress Questionnaire Answer [...] in a residential (including now)? No 09/11/2022 Nutrition Answer Date [...] Sex Assigned at Female 03/27/2017 3:30 PM BOULEVARD GLASSWARE REPLACER Gender Identity Female 03/27/2017 3:30 PM BOULEVARD GLASSWARE REPLACER Sexual Orientation Straight 03/27/2017 3: 30 PM BOULEVARD GLASSWARE REPLACER documented as of this encounter Plan of Treatment Upcoming Encounters Date Type Department Care Team (Latest Contact Info) Description 07/09/2023 8:20 AM BOULEVARD GLASSWARE REPLACER Appointment Department of Laboratory Medicine in [address] [phone] Allyn Alfredo M.D. [address] [place] [phone] 07/09/2023 9:15 AM BOULEVARD GLASSWARE REPLACER Office Visit Department of Family Medicine, [facility], in [address] [phone] Allyn Alfredo M.D. [address] [place] [phone] 07/16/2023 12:06 PM BOULEVARD GLASSWARE REPLACER Hospital Encounter Post Anesthesia Care Unit in [address] [phone] Cristhian Grant M.B., Ch.B., Ph.D. [address] [place] [phone] 07/16/2023 12:06 PM BOULEVARD GLASSWARE REPLACER - 07/16/2023 3:35 PM BOULEVARD GLASSWARE REPLACER Surgery [facility] MAIN OR [address] [place] [phone] Cristhian Grant M.B., Ch.B., Ph.D. [address] [place] [phone] CREATION FISTULA RADIOCEPHALIC ARTERIOVENOUS 07/20/2023 11:00 AM CDT Office Visit Department of Orthopedic Surgery in [address] [phone] Cindy Walker D.PLeidaM. [address] [place] [phone] Discharge Disposition: Home or Self Care 08/25/2023 3:15 PM CDT Telemedicine Department of Sleep Medicine in [place], [place] [address] [phone] Emilee Emanuel APRN, C.N.P., D.N.P., M.S.N. [address] [place] [phone] Scheduled Procedures Name Priority Associated Diagnoses Date/Ti me CREATION FISTULA RADIOCEPHALIC ARTERIOVENOUS Chronic Kidney Disease Stage 5 Glomerular Filtration Rate Less Than 15 (HCC) 07/16/2023 12:06 PM BOULEVARD GLASSWARE REPLACER CREATION FISTULA BRACHIOCEPHALIC ARTERIOVENOUS Chronic Kidney Disease Stage 5 Glomerular Filtration Rate Less Than 15 (HCC) 07/16/2023 12:06 PM BOULEVARD GLASSWARE REPLACER Scheduled Referrals Name Type Priority Associated Diagnoses Orde r Schedule Sleep Medicine - General consult (clinic) Outpatient Referral Routine Apnea Sleep Obstructive Restless Leg Syndrome Expected: 11/05/2022 (Approximate), Expires: 02/06/2024 documented as of this encounter Visit Diagnoses Diagnosis Apnea Sleep Obstructive- Primary Restless Leg Syndrome Chronic Kidney Disease Stage 5 Glomerular Filtration Rate Less Than 15 (HCC) documented in this encounter Additional Health Concerns Assessment Noted Time PHQ-9 Depression Total Score: 5 06/25/19 16 1:22 PM BOULEVARD GLASSWARE REPLACER documented as of this encounter Care Teams Silver Steward Relationship Specialty Start Date End Date Allyn Alfredo M.D. [address] [place], [place] [address] [phone] PCP - General Family Medicine 04/05/21 documented as of this encounter
--- OUTSIDE RECORDS SUMMARY | 2023-06-24 18:17 | XMS_ITS | Encounter Summary ---
Author Name Unknown Organization [facility] Address [address] [place] [address] Care Team Providers Care Line Tender Flakeboard Name Role Phone Allyn Alfredo M.D. Primary Care Pro vider Reason for Referral * Outpatient (Routine) - Closed Specialty Diagnoses / Procedures Referred By Esther zamorano Referred To Contact Diagnoses Hypertension And Chronic Kidney Disease Stage 5 (HCC) Anemia Of Chronic Renal Disease Diabetes Mellitus Type 2 With Diabetic Nephropathy (HCC) Periodic Limb Movement Disorder Dialysis Peritoneal Status (HCC) Fatigue Extreme Procedures ECG 12 Lead Wilfrid Lincoln Jr., D.OLeida [address] [place] [phone] [facility] Region Referral ID Status Reason Start Date Expiration Date Visits Re quested Visits Authorized [id number] Closed 11/04/2022 11/04/2023 1 1 Reason for Visit * Outpatient (Routine) - Closed Specialty Diagnoses / Procedures Referred By Esther zamorano Referred To Contact Diagnoses Hypertension And Chronic Kidney Disease Stage 5 (HCC) Anemia Of Chronic Renal Disease Diabetes Mellitus Type 2 With Diabetic Nephropathy (HCC) Periodic Limb Movement Disorder Dialysis Peritoneal Status (HCC) Fatigue Extreme Procedures ECG 12 Lead Wilfrid Lincoln Jr., D.OLeida [address] [place] [phone] [facility] Referral ID Status Reason Start Date Expiration Date Visits Re quested Visits Authorized [id number] Closed 11/04/2022 11/04/2023 1 1 Encounter Details Date Type Department Care Team (Latest Contact Info) Description 11/10/2022 9:53 AM CDT - 11/10/2022 11:59 PM CDT Hospital Encounter Department of Radiology in [address] [phone] Wilfrid Lincoln Jr., D.O. [address] [place] [address] Hypertension And Chronic Kidney Disease Stage 5 [...] Answer Date Recorded PHQ-2 Score 0 07/25/2022 [facility] of Occupat ional Health - Occupational [...] Assigned at Female 03/27/2017 3:30 PM MANAGER FRONT OFFICE Gender Identity Female 03/27/2017 3:30 PM MANAGER FRONT OFFICE Sexual Orientation Straight 03/27/2017 3: 30 PM MANAGER FRONT OFFICE documented as of this encounter Medications at Time of Discharge Medication Sig Dispensed Refills Start Date End Date aspirin [address] tablet Take 1 tablet by mouth daily. 0 blood-glucose meter,continuous (Dexcom G7 Binder Layer) misc Use as directed 3 (three) times a day. 1 each 07/29/2022 07/29/2023 blood-glucose meter,continuous misc Use to monitor blood glucose 1 each 0 04/09/2021 blood-glucose sensor (Dexcom G7 Sensor) device 1 Device as directed for 10 days. Apply to skin replace every 10 days 10 each 07/29/2022 09/05/2023 calcium acetate,phosphat bind, (PHOSLO) 667 [...] Contact Info) Description 07/09/2023 8:20 AM MANAGER FRONT OFFICE Appointment Department of Laboratory Medicine in [address] [phone] Allyn Alfredo M.D. [address] [place] [phone] 07/09/2023 9:15 AM MANAGER FRONT OFFICE Office Visit Department of Family Medicine, [facility], in [address] [phone] Allyn Alfredo M.D. [address] [place] [phone] 07/16/2023 12:06 PM MANAGER FRONT OFFICE Hospital Encounter Post Anesthesia Care Unit in [address] [phone] Cristhian Grant M.B., Ch.B., Ph.D. [address] [place] [phone] 07/16/2023 12:06 PM MANAGER FRONT OFFICE - 07/16/2023 3:35 PM MANAGER FRONT OFFICE Surgery [facility] MAIN OR [address] [place] [phone] Cristhian Grant M.B., Ch.B., Ph.D. [address] [place] [phone] CREATION FISTULA RADIOCEPHALIC ARTERIOVENOUS 07/20/2023 11:00 AM CDT Office Visit Department of Orthopedic Surgery in [address] [phone] Cindy Walker D.P.M. [address] [place] [phone] Discharge Disposition: Home or Self Care 08/25/2023 3:15 PM CDT Telemedicine Department of Sleep Medicine in [place], [place] [address] [place] [phone] Emilee Emanuel APRN, C.N.P., D.N.P., M.S.N. [address] [place] [phone] Scheduled Procedures Name Priority Associated Diagnoses Date/Ti me CREATION FISTULA RADIOCEPHALIC ARTERIOVENOUS Chronic Kidney Disease Stage 5 Glomerular Filtration Rate Less Than 15 (HCC) 07/16/2023 12:06 PM MANAGER FRONT OFFICE CREATION FISTULA BRACHIOCEPHALIC ARTERIOVENOUS Chronic Kidney Disease Stage 5 Glomerular Filtration Rate Less Than 15 (HCC) 07/16/2023 12:06 PM MANAGER FRONT OFFICE documented as of this encounter Procedures Procedure Name Priority Date/Time Associated Diagnosis Comments ECG Routine 11/10/2022 9:51 AM CDT Hypertension And Chronic Kidney Disease Stage 5 (HCC) Anemia Of Chronic Renal Disease Diabetes Mellitus Type 2 With Diabetic Nephropathy (HCC) Periodic Limb Movement Disorder Dialysis Peritoneal Status (HCC) Fatigue Extreme documented in this encounter Results * ECG 12 Lead (11/10/2022 9:51 AM CDT) Ventricular Rate ECG/Min 77 BPM MUSE NV Interval 150 ms MUSE QRSD Interval 108 ms MUSE QT Interval 370 ms MUSE QTC Interval 418 ms MUSE P [place] 62 degrees MUSE R [place] -22 degrees MUSE T Wave [place] 119 degrees MUSE 11/10/2022 9:51 AM CDT 11/10/2022 10:04 AM CDT Impressions MUSE - 11/10/2022 10:04 AM CDT Normal sinus rhythm Cannot rule out Anteroseptal infarct Nonspecific ST and T wave abnormality When compared with ECG of 04-APR-2021 08:42, T wave inversion no longer evident in inferior leads Reviewed by JANA Patricia Narrative Procedure Note Te Hooper M.D. - 11/10/2022 IMPRESSION: Normal sinus rhythm Cannot rule out Anteroseptal infarct Nonspecific ST and T wave abnormality When compared with ECG of 04-APR-2021 08:42, T wave inversion no longer evident in inferior leads Reviewed by JANA Patricia Wilfrid Lincoln Jr., D.OLeida ECG ORDERABL ES MUSE NA documented in this encounter Visit Diagnoses [...] Total Score: 5 06/25/19 16 1:22 PM MANAGER FRONT OFFICE documented as of this encounter Care Teams Line Tender Flakeboard Relationship Specialty Start Date End Date Allyn Alfredo M.D. [address] [place] [phone] PCP - General Family Medicine 04/05/21 documented as of this encounter
--- OUTSIDE RECORDS SUMMARY | 2023-06-24 18:17 | XMS_ITS | Encounter Summary ---
Author Name Unknown Organization [facility] Address [address] [place] [address] Care Team Providers Care Data Engineer Name Role Phone Allyn Alfredo M.D. Primary Care Pro vider Encounter Details Date Type Department Care Team (Latest Contact Info) Description 11/10/2022 9:53 AM CDT - 11/10/2022 11:59 PM CDT Hospital Encounter Department of Laboratory Medicine in [address] [phone] Wilfrid Lincoln Jr., D.O. [address] [place] [phone] Hypertension And Chronic Kidney Disease Stage 5 [...] How often do you attend chur or oriental orthodox services? 1 to 4 times per year 09/11/2022 Do you belong to any clubs o r organizations such as orthodox groups, unions, fraternal or athletic groups, [...] Answer Date Recorded PHQ-2 Score 0 07/25/2022 [facility] of Occupat ional Health - Occupational Stress [...] Sex Assigned at Female 03/27/2017 3:30 PM BIG DATA LEAD Gender Identity Female 03/27/2017 3:30 PM BIG DATA LEAD Sexual Orientation Straight 03/27/2017 3: 30 PM BIG DATA LEAD documented as of this encounter Medications at Time of Discharge Medication Sig Dispensed Refills Start Date End Date aspirin [address] tablet Take 1 tablet by mouth daily. 0 blood-glucose meter,continuous (Dexcom G7 [employer]) misc Use as directed 3 (three) times [...] (Latest Contact Info) Description 07/09/2023 8:20 AM BIG DATA LEAD Appointment Department of Laboratory Medicine in [address] [phone] Allyn Alfredo M.D. [address] [place] [phone] 07/09/2023 9:15 AM BIG DATA LEAD Office Visit Department of Family Medicine, [facility], in [address] [phone] Allyn Alfredo M.D. [address] [place] [phone] 07/16/2023 12:06 PM BIG DATA LEAD Hospital Encounter Post Anesthesia Care Unit in [place], [place] [address] [place] [phone] Cristhian Grant M.B., Ch.B., Ph.D. [address] [place] [phone] 07/16/2023 12:06 PM BIG DATA LEAD - 07/16/2023 3:35 PM BIG DATA LEAD Surgery RST ROMB MAIN OR [address] [place] [phone] Cristhian Grant M.B., Ch.B., Ph.D. [address] [place] [phone] CREATION FISTULA RADIOCEPHALIC ARTERIOVENOUS 07/20/2023 11:00 AM CDT Office Visit Department of Orthopedic Surgery in [address] [phone] Cindy Walker D.PLeidaMLeida [address] [facility] [place] [phone] Discharge Disposition: Home or Self Care 08/25/2023 3:15 PM CDT Telemedicine Department of Sleep Medicine in [place], [place] [address], [place] [address] Emilee Emanuel APRN, C.N.P., D.N.P., M.S.N. [address] [phone] Scheduled Procedures Name Priority Associated Diagnoses Date/Ti me CREATION FISTULA RADIOCEPHALIC ARTERIOVENOUS Chronic Kidney Disease Stage 5 Glomerular Filtration Rate Less Than 15 (HCC) 07/16/2023 12:06 PM BIG DATA LEAD CREATION FISTULA BRACHIOCEPHALIC ARTERIOVENOUS Chronic Kidney Disease Stage 5 Glomerular Filtration Rate Less Than 15 (HCC) 07/16/2023 12:06 PM BIG DATA LEAD documented as of this encounter Procedures Procedure Name Priority Date/Time Associated Diagnosis Comments THYROID FUNCTION CASCADE, S Routine 11/10/2022 10:09 AM CDT Hypertension And Chronic Kidney Disease Stage 5 (HCC) Anemia Of Chronic Renal Disease Diabetes Mellitus Type 2 With Diabetic Nephropathy (HCC) Periodic Limb Movement Disorder Dialysis Peritoneal Status (HCC) Fatigue Extreme documented in this encounter Results * Thyroid Function [place] (11/10/2022 10:09 AM CDT) TSH, Sensitive 4.2 0.3 - 4.2 mIU/L 11/10/2022 11:14 AM CDT CNFL Blood (Blood, Venous) 11/10/2022 10:09 AM CDT 11/10/2022 10:12 AM CDT Wilfrid Lincoln Jr. DLeidaOLeida LAB BLOOD AD D[facility] [address] [place] [address], [employer] [facility] in [address] [address] documented in this encounter Visit Diagnoses Diagnosis [...] Total Score: 5 06/25/19 16 1:22 PM BIG DATA LEAD documented as of this encounter Care Teams Data Engineer Relationship Specialty Start Date End Date Allyn Alfredo M.D. [address] [place] [phone] PCP - General Family Medicine 04/05/21 documented as of this encounter
--- OUTSIDE RECORDS SUMMARY | 2023-06-24 18:17 | XMS_ITS | Encounter Summary ---
Author Name Unknown Organization [facility] Address [address] [place] [address] Care Team Providers Care Hospice Coordinator Name Role Phone Allyn Alfredo M.D. Primary Care Pro vider Encounter Details Date Type Department Care Team (Late st Contact Info) Description 11/04/2022 Documentation Division of Nephrology and Hypertension in [place], [place] [address] [place] [phone] Wilfrid Lincoln Jr., D.O. [address] [place] [phone] Social History Tobacco Use Types Packs/Day Years [...] Answer Date Recorded PHQ-2 Score 0 07/25/2022 [facility] of Occupat ional Health - Occupational [...] Assigned at Female 03/27/2017 3:30 PM PUBLIC HEALTH SANITARIAN Gender Identity Female 03/27/2017 3:30 PM PUBLIC HEALTH SANITARIAN Sexual Orientation Straight 03/27/2017 3: 30 PM PUBLIC HEALTH SANITARIAN documented as of this encounter Progress Notes * Wilfrid Lincoln Jr., D.O. - 11/04/2022 11:54 AM CDT Peritoneal dialysis visit-care coordination She was seen today at the [facility] dialysis unit for her monthly peritoneal dialysis review. In general she is doing well her labs were reviewed, and are all acceptable, with a hemoglobin of9.9. As per last month, she continues to struggle with profound fatigue and exercise intolerance. She ishaving no shortness of breath or chest pain, appetite is good. Note that she complains of sleeping very poorly on the background of both restless legs and perhapssleep disordered breathing. She had been recommended to increase her gabapentin to 300 mg at bedtime but has yet to do so. It has been quite some time since we checked her thyroid functions, and her cardiac function and wewill orchestrate these. We also discussed her having a sleep study. Her daughter accompanied her today, and problem-solving took place with respect to finding a betterway forward for her overall needs at home. Her glycemic control has improved, her average sugars over the past week have been in the 180 range, but over the past month in the 229 range. She is working towards better predictability of her meals and insulin regimen. Currently her dialysis regimen foster hours a split between 2.5 and 1.5% dextrose fluids. Her weight has been steady and blood pressure excellent. Dialysis exit site is excellent and clean. Please see [facility] tab in the Care everywhere for dialysis visit specifics. documented in this encounter Plan of Treatment Upcoming Encounters Date Type Department Care Team (Latest Contact Info) Description 07/09/2023 8:20 AM PUBLIC HEALTH SANITARIAN Appointment Department of Laboratory Medicine in [address] [phone] Allyn Alfredo M.D. [address] [place] [phone] 07/09/2023 9:15 AM PUBLIC HEALTH SANITARIAN Office Visit Department of Family Medicine, [facility], in [address] [phone] Allyn Alfredo M.D. [address] [place] [phone] 07/16/2023 12:06 PM PUBLIC HEALTH SANITARIAN Hospital Encounter Post Anesthesia Care Unit in [place], [place] [address] [place] [phone] Cristhian Grant M.B., Ch.B., Ph.D. [address] [place] [phone] 07/16/2023 12:06 PM PUBLIC HEALTH SANITARIAN - 07/16/2023 3:35 PM PUBLIC HEALTH SANITARIAN Surgery RST ROMB MAIN OR [address] [place] [phone] Cristhian Grant M.B., Ch.B., Ph.D. [address] [place] [phone] CREATION FISTULA RADIOCEPHALIC ARTERIOVENOUS 07/20/2023 11:00 AM CDT Office Visit Department of Orthopedic Surgery in [address] [phone] Cindy Walker D.PLeidaMLeida [address] [place] [phone] Discharge Disposition: Home or Self Care 08/25/2023 3:15 PM CDT Telemedicine Department of Sleep Medicine in [place], [place] [address] [place] [phone] Emilee Emanuel APRN, C.N.P., D.N.P., M.S.N. [address] [place] [phone] Scheduled Procedures Name Priority Associated Diagnoses Date/Ti me CREATION FISTULA RADIOCEPHALIC ARTERIOVENOUS Chronic Kidney Disease Stage 5 Glomerular Filtration Rate Less Than 15 (HCC) 07/16/2023 12:06 PM PUBLIC HEALTH SANITARIAN CREATION FISTULA BRACHIOCEPHALIC ARTERIOVENOUS Chronic Kidney Disease Stage 5 Glomerular Filtration Rate Less Than 15 (HCC) 07/16/2023 12:06 PM PUBLIC HEALTH SANITARIAN documented as of this encounter Visit Diagnoses Not on filedocumented in this encounter Additional Health Concerns Assessment Noted Time PHQ-9 Depression Total Score: 5 06/25/19 16 1:22 PM PUBLIC HEALTH SANITARIAN documented as of this encounter Care Teams Hospice Coordinator Relationship Specialty Start Date End Date Allyn Alfredo M.D. [address] [phone] PCP - General Family Medicine 04/05/21 documented as of this encounter
--- OUTSIDE RECORDS SUMMARY | 2023-06-24 18:17 | XMS_ITS | Encounter Summary ---
Author Name Unknown Organization [facility] Address [address] [place] [address] Care Team Providers Care Recreation Teacher Name Role Phone Allyn Alfredo M.D. Primary Care Pro vider Encounter Details Date Type Department Care Team (Late st Contact Info) Description 09/30/2022 Orders Only Division of Nephrology and Hypertension in [place], [place] [address] [place] [address] Wilfrid Lincoln Jr., D.O. [address] [place] [phone] Social History Tobacco Use Types Packs/Day Years [...] any clubs o r organizations such as episcopal groups, unions, fraternal or athletic groups, or [...] Answer Date Recorded PHQ-2 Score 0 07/25/2022 [facility] of Occupat ional Health - Occupational [...] a care home (including now)? No 09/11/2022 Nutrition Answer [...] Assigned at Female 03/27/2017 3:30 PM MACHINE GUIDE BASE WINDER Gender Identity Female 03/27/2017 3:30 PM MACHINE GUIDE BASE WINDER Sexual Orientation Straight 03/27/2017 3: 30 PM MACHINE GUIDE BASE WINDER documented as of this encounter Plan of Treatment Upcoming Encounters Date Type Department Care Team (Latest Contact Info) Description 07/09/2023 8:20 AM MACHINE GUIDE BASE WINDER Appointment Department of Laboratory Medicine in [address] [phone] Allyn Alfredo M.D. [address] [place] [phone] 07/09/2023 9:15 AM MACHINE GUIDE BASE WINDER Office Visit Department of Family Medicine, [facility], in [address] [phone] Allyn Alfredo M.D. [address] [place] [phone] 07/16/2023 12:06 PM MACHINE GUIDE BASE WINDER Hospital Encounter Post Anesthesia Care Unit in [place] [phone] [place] [phone] Cristhian Grant M.B., Ch.B., Ph.D. [address] [place] [phone] 07/16/2023 12:06 PM MACHINE GUIDE BASE WINDER - 07/16/2023 3:35 PM MACHINE GUIDE BASE WINDER Surgery RST ROMB MAIN OR [address] [place] [phone] Cristhian Grant M.B., Ch.B., Ph.D. [address] [place] [phone] CREATION FISTULA RADIOCEPHALIC ARTERIOVENOUS 07/20/2023 11:00 AM CDT Office Visit Department of Orthopedic Surgery in [address] [phone] Cindy Walker D.PLeidaMLeida [address] [place] [phone] Discharge Disposition: Home or Self Care 08/25/2023 3:15 PM CDT Telemedicine Department of Sleep Medicine in [place], [place] [address] [place] [phone] Emilee Emanuel APRN, C.N.P., D.N.P., M.S.N. [address] [phone] Scheduled Procedures Name Priority Associated Diagnoses Date/Ti me CREATION FISTULA RADIOCEPHALIC ARTERIOVENOUS Chronic Kidney Disease Stage 5 Glomerular Filtration Rate Less Than 15 (HCC) 07/16/2023 12:06 PM MACHINE GUIDE BASE WINDER CREATION FISTULA BRACHIOCEPHALIC ARTERIOVENOUS Chronic Kidney Disease Stage 5 Glomerular Filtration Rate Less Than 15 (HCC) 07/16/2023 12:06 PM MACHINE GUIDE BASE WINDER documented as of this encounter Visit Diagnoses Not on filedocumented in this encounter Additional Health Concerns Assessment Noted Time PHQ-9 Depression Total Score: 5 06/25/19 16 1:22 PM MACHINE GUIDE BASE WINDER documented as of this encounter Care Teams Recreation Teacher Relationship Specialty Start Date End Date Allyn Alfredo M.D. [address] [phone] PCP - General Family Medicine 04/05/21 documented as of this encounter
--- OUTSIDE RECORDS SUMMARY | 2023-06-24 18:17 | XMS_ITS | Encounter Summary ---
Author Name Unknown Organization [facility] Address [address] [place] [address] Care Team Providers Care Strategic Buyer Name Role Phone Allyn Alfredo M.D. Primary Care Pro vider Encounter Details Date Type Department Care Team (Late st Contact Info) Description 09/24/2022 Orders Only [facility] Allyn Alfredo M.D. [address] [place] [phone] Monitoring For Therapeutic Drug Therapy Social History Tobacco Use Types Packs/Day Years [...] Answer Date Recorded PHQ-2 Score 0 07/25/2022 [facility] of Occupat ional Health - [...] a long term (including now)? No 09/11/2022 Nutrition Answer Date [...] Sex Assigned at Female 03/27/2017 3:30 PM STRIP DEBURRER Gender Identity Female 03/27/2017 3:30 PM STRIP DEBURRER Sexual Orientation Straight 03/27/2017 3: 30 PM STRIP DEBURRER documented as of this encounter Plan of Treatment Upcoming Encounters Date Type Department Care Team (Latest Contact Info) Description 07/09/2023 8:20 AM STRIP DEBURRER Appointment Department of Laboratory Medicine in [address] [phone] Allyn Alfredo M.D. [address] [place] [phone] 07/09/2023 9:15 AM STRIP DEBURRER Office Visit Department of Family Medicine, [facility], in [address] [phone] Allyn Alfredo M.D. [address] [place] [phone] 07/16/2023 12:06 PM STRIP DEBURRER Hospital Encounter Post Anesthesia Care Unit in [address] [phone] Cristhian Grant M.B., Ch.B., Ph.D. [address] [place] [phone] 07/16/2023 12:06 PM STRIP DEBURRER - 07/16/2023 3:35 PM STRIP DEBURRER Surgery RST ROMB MAIN OR [address] [place] [phone] Cristhian Grant M.B., Ch.B., Ph.D. [address] [place] [phone] CREATION FISTULA RADIOCEPHALIC ARTERIOVENOUS 07/20/2023 11:00 AM CDT Office Visit Department of Orthopedic Surgery in [address] [phone] Cindy Walker D.PLeidaMLeida [address] [place] [phone] Discharge Disposition: Home or Self Care 08/25/2023 3:15 PM CDT Telemedicine Department of Sleep Medicine in [place], [place] [address] [place] [phone] Emilee Emanuel APRN, C.N.P., D.N.P., M.S.N. [address] [place] [phone] Scheduled Procedures Name Priority Associated Diagnoses Date/Ti me CREATION FISTULA RADIOCEPHALIC ARTERIOVENOUS Chronic Kidney Disease Stage 5 Glomerular Filtration Rate Less Than 15 (HCC) 07/16/2023 12:06 PM STRIP DEBURRER CREATION FISTULA BRACHIOCEPHALIC ARTERIOVENOUS Chronic Kidney Disease Stage 5 Glomerular Filtration Rate Less Than 15 (HCC) 07/16/2023 12:06 PM STRIP DEBURRER documented as of this encounter Results * (ABNORMAL) Basic Metabolic [...] CDT Allyn Ryan M.D. LAB BLOOD ADD-ON [facility] [address] [place] [phone], [facility] CNFL [facility] in [address] [address] documented in this encounter Visit Diagnoses Diagnosis Monitoring For Therapeutic Drug Therapy Chronic Kidney Disease Stage 5 Glomerular Filtration Rate Less Than 15 (HCC) documented in this encounter Additional Health Concerns Assessment Noted Time PHQ-9 Depression Total Score: 5 06/25/19 16 1:22 PM STRIP DEBURRER documented as of this encounter Care Teams Strategic Buyer Relationship Specialty Start Date End Date Allyn Alfredo M.D. [address] [place] [phone] PCP - General Family Medicine 04/05/21 documented as of this encounter
--- OUTSIDE RECORDS SUMMARY | 2023-06-24 18:17 | XMS_ITS | Encounter Summary ---
Author Name Unknown Organization [facility] Address [address] [place] [address] Care Team Providers Care Coke Handling Supervisor Name Role Phone Allyn Alfredo M.D. Primary Care Pro vider Reason for Visit * Reason Comments Med Refill Encounter Details Date Type Department Care Team (Late st Contact Info) Description 10/24/2022 Refill Division of Nephrology and Hypertension in [place], [place] [address] [place] [phone] Wilfrid Lincoln Jr., D.O. [address] [place] [phone] Med Refill Social History Tobacco Use Types [...] any clubs o r organizations such as restorationist groups, unions, fraternal or athletic groups, or [...] Answer Date Recorded PHQ-2 Score 0 07/25/2022 [facility] of Occupat ional Health - Occupational Stress [...] Sex Assigned at Female 03/27/2017 3:30 PM SEPTIC TANK SERVICE TECHNICIAN Gender Identity Female 03/27/2017 3:30 PM SEPTIC TANK SERVICE TECHNICIAN Sexual Orientation Straight 03/27/2017 3: 30 PM SEPTIC TANK SERVICE TECHNICIAN documented as of this encounter Miscellaneous Notes * Telephone Encounter - Zoila Best, R.N. - 10/27/2022 2:51 PM CDT Prescription was sent 09/02/2022 to the preferred pharmacy - year supply. documented in this encounter Plan of Treatment Upcoming Encounters Date Type Department Care Team (Latest Contact Info) Description 07/09/2023 8:20 AM SEPTIC TANK SERVICE TECHNICIAN Appointment Department of Laboratory Medicine in [address] [phone] Allyn Alfredo M.D. [address] [place] [phone] 07/09/2023 9:15 AM SEPTIC TANK SERVICE TECHNICIAN Office Visit Department of Family Medicine, [facility], in [address] [phone] Allyn Alfredo M.D. [address] [place] [phone] 07/16/2023 12:06 PM SEPTIC TANK SERVICE TECHNICIAN Hospital Encounter Post Anesthesia Care Unit in [address] [phone] Cristhian Grant M.B., Ch.B., Ph.D. [address] [place] [phone] 07/16/2023 12:06 PM SEPTIC TANK SERVICE TECHNICIAN - 07/16/2023 3:35 PM SEPTIC TANK SERVICE TECHNICIAN Surgery RST ROMB MAIN OR [address] [place] [phone] Cristhian Grant M.B., Ch.B., Ph.D. [address] [place] [phone] CREATION FISTULA RADIOCEPHALIC ARTERIOVENOUS 07/20/2023 11:00 AM CDT Office Visit Department of Orthopedic Surgery in [address] [phone] Cindy Walker D.P.M. [address] [place] [phone] Discharge Disposition: Home or Self Care 08/25/2023 3:15 PM CDT Telemedicine Department of Sleep Medicine in [place], [place] [address] [place] [phone] Emilee Emanuel APRN, C.N.P., D.N.P., M.S.N. [address] [place] [phone] Scheduled Procedures Name Priority Associated Diagnoses Date/Ti me CREATION FISTULA RADIOCEPHALIC ARTERIOVENOUS Chronic Kidney Disease Stage 5 Glomerular Filtration Rate Less Than 15 (HCC) 07/16/2023 12:06 PM SEPTIC TANK SERVICE TECHNICIAN CREATION FISTULA BRACHIOCEPHALIC ARTERIOVENOUS Chronic Kidney Disease Stage 5 Glomerular Filtration Rate Less Than 15 (HCC) 07/16/2023 12:06 PM SEPTIC TANK SERVICE TECHNICIAN documented as of this encounter Visit Diagnoses Not on filedocumented in this encounter Additional Health Concerns Assessment Noted Time PHQ-9 Depression Total Score: 5 06/25/19 16 1:22 PM SEPTIC TANK SERVICE TECHNICIAN documented as of this encounter Care Teams Coke Handling Supervisor Relationship Specialty Start Date End Date Allyn Alfredo M.D. [place]: [phone] [address] [phone] PCP - General Family Medicine 04/05/21 documented as of this encounter
--- OUTSIDE RECORDS SUMMARY | 2023-06-24 18:17 | XMS_ITS | Encounter Summary ---
Author Name Unknown Organization [facility] Address [address] [place] [address] Care Team Providers Care Reinforced Concrete Inspector Name Role Phone Allyn Alfredo M.D. Primary Care Pro vider Encounter Details Date Type Department Care Team (Late st Contact Info) Description 09/30/2022 Documentation Division of Nephrology and Hypertension in [place], [place] [address] [place] [phone] Wilfrid Lincoln Jr., D.O. [address] [place] [phone] Social History Tobacco Use Types Packs/Day Years [...] How often do you attend chur or presybeterian services? 1 to 4 times per year [...] Answer Date Recorded PHQ-2 Score 0 07/25/2022 [facility] of Occupat ional [...] in a [facility] (including now)? No 09/11/2022 Nutrition Answer Date [...] Sex Assigned at Female 03/27/2017 3:30 PM DIGESTER COOK Gender Identity Female 03/27/2017 3:30 PM DIGESTER COOK Sexual Orientation Straight 03/27/2017 3: 30 PM DIGESTER COOK documented as of this encounter Progress Notes * Wilfrid Lincoln Jr., D.OLeida - 09/30/2022 11:44 AM CDT Dialysis visit-care coordination Please see the Maryuri note from the monthly peritoneal dialysis visit, her sugars have been runningin the upper 230 range for the past month, we are using 2.5% exchanges 4 days per week, and an alternate 1.5 and 2.5% fluids for the other days. [place] [address] lb. Blood pressures have been in the 140s over 80s. She relates that recently she has been extremely weak and even had to sit down in the shower. Her hemoglobin is acceptable at 10.4, chemistries are excellent, dialysis delivery is acceptable. No orthostatic blood pressure changes, her exit site is perfect. In the past, profound fatigue has been associated with her high glucose levels. Additionally, we have been struggling to keep her at her target weight, and managing some of her fluid gains versus herbecoming volume depleted. Going forward, I have asked her to add some short-acting insulin during the daytime in addition to her long-acting Basaglar insulin, 12 units subQ daily. Otherwise we will continue to shoot for her target weight of roughly 201-203 lb. documented in this encounter Plan of Treatment Upcoming Encounters Date Type Department Care Team (Latest Contact Info) Description 07/09/2023 8:20 AM DIGESTER COOK Appointment Department of Laboratory Medicine in [address] [phone] Allyn Alfredo M.D. [address] [place] [phone] 07/09/2023 9:15 AM DIGESTER COOK Office Visit Department of Family Medicine, [facility], in [address] [phone] Allyn Alfredo M.D. [address] [place] [phone] 07/16/2023 12:06 PM DIGESTER COOK Hospital Encounter Post Anesthesia Care Unit in [place], [place] [address] [place] [phone] Cristhian Grant M.B., Ch.B., Ph.D. 200 [place] [phone] 07/16/2023 12:06 PM DIGESTER COOK - 07/16/2023 3:35 PM DIGESTER COOK Surgery RST ROMB MAIN OR [address] [place] [phone] Cristhian Grant M.B., Ch.B., Ph.D. 200 [place] [phone] CREATION FISTULA RADIOCEPHALIC ARTERIOVENOUS 07/20/2023 11:00 AM CDT Office Visit Department of Orthopedic Surgery in [address] [phone] Cindy Walker D.PLeidaMLeida [address] [place] [phone] Discharge Disposition: Home or Self Care 08/25/2023 3:15 PM CDT Telemedicine Department of Sleep Medicine in [place], [place] [address] [phone] Emilee Emanuel APRN, C.N.P., D.N.P., M.S.N. [address] [phone] Scheduled Procedures Name Priority Associated Diagnoses Date/Ti me CREATION FISTULA RADIOCEPHALIC ARTERIOVENOUS Chronic Kidney Disease Stage 5 Glomerular Filtration Rate Less Than 15 (HCC) 07/16/2023 12:06 PM DIGESTER COOK CREATION FISTULA BRACHIOCEPHALIC ARTERIOVENOUS Chronic Kidney Disease Stage 5 Glomerular Filtration Rate Less Than 15 (HCC) 07/16/2023 12:06 PM DIGESTER COOK documented as of this encounter Visit Diagnoses Not on filedocumented in this encounter Additional Health Concerns Assessment Noted Time PHQ-9 Depression Total Score: 5 06/25/19 16 1:22 PM DIGESTER COOK documented as of this encounter Care Teams Reinforced Concrete Inspector Relationship Specialty Start Date End Date Byers Allyn Ryan M.D. [address] [phone] PCP - General Family Medicine 04/05/21 documented as of this encounter
--- OUTSIDE RECORDS SUMMARY | 2023-06-24 18:17 | XMS_ITS | Encounter Summary ---
Author Name Unknown Organization [facility] Address [address] [place] [address] Care Team Providers Care Surgical Coordinator Name Role Phone Allyn Alfredo M.D. [...] Procedures ECG 12 Lead Wilfrid Lincoln Jr., D.O. 200 [place] [address] [facility] Region Referral ID Status Reason Start Date Expiration Date Visits Re quested Visits Authorized [id number] Closed 11/04/2022 11/04/2023 1 1 * Outpatient (Routine) - Closed Specialty Diagnoses / Procedures Referred By Esther zamorano Referred To Contact Sleep Medicine Diagnoses Hypertension And Chronic Kidney Disease Stage 5 (HCC) Anemia Of Chronic Renal Disease Diabetes Mellitus Type 2 With Diabetic Nephropathy (HCC) Periodic Limb Movement Disorder Dialysis Peritoneal Status (HCC) Fatigue Extreme Wilfrid Lincoln Jr., D.O. 200 [place] [address] [facility] Referral ID Status Reason Start Date Expiration Date V isits Requested Visits Authorized [id number] Closed Specialty Services Required 11/04/2022 11/04/2023 1 1 * Outpatient (Routine) - Closed Specialty Diagnoses / Procedures Referred By Contac t Referred To Contact Diagnoses Hypertension And Chronic Kidney Disease Stage 5 (HCC) Anemia Of Chronic Renal Disease Diabetes Mellitus Type 2 With Diabetic Nephropathy (HCC) Periodic Limb Movement Disorder Dialysis Peritoneal Status (HCC) Fatigue Extreme Procedures Echo Transthoracic (TTE) Wilfrid Lincoln Jr., D.O. [address] [place] [phone] [facility] Referral ID Status Reason Start Date Expiration Date Visits Re quested Visits Authorized [id number] Closed 11/04/2022 11/04/2023 1 1 Encounter Details Date Type Department Care Team (Late st Contact Info) Description 11/04/2022 Orders Only Division of Nephrology and Hypertension in [place], [place] [address] [place] [phone] Wilfrid Lincoln Jr., D.OLeida [address] [place] [phone] Hypertension And Chronic Kidney Disease Stage 5 (HCC) (Primary Dx); Anemia Of Chronic Renal Disease; Diabetes Mellitus Type 2 With Diabetic Nephropathy (HCC); Periodic Limb Movement Disorder; Dialysis Peritoneal Status (HCC); Fatigue Extreme Social History Tobacco Use Types Packs/Day Years [...] How often do you attend chur or sikhism services? 1 to 4 times [...] Answer Date Recorded PHQ-2 Score 0 07/25/2022 [facility] of Occupat ional Health - Occupational Stress [...] in a prison (including now)? No 09/11/2022 Nutrition Answer Date [...] Sex Assigned at Female 03/27/2017 3:30 PM ATTORNEY AT LAW Gender Identity Female 03/27/2017 3:30 PM ATTORNEY AT LAW Sexual Orientation Straight 03/27/2017 3: 30 PM ATTORNEY AT LAW documented as of this encounter Plan of Treatment Upcoming Encounters Date Type Department Care Team (Latest Contact Info) Description 07/09/2023 8:20 AM ATTORNEY AT LAW Appointment Department of Laboratory Medicine in [address] [phone] Allyn Alfredo M.D. [address] [place] [phone] 07/09/2023 9:15 AM ATTORNEY AT LAW Office Visit Department of Family Medicine, [facility], in [address] [phone] Allyn Alfredo M.D. [address] [place] [phone] 07/16/2023 12:06 PM ATTORNEY AT LAW Hospital Encounter Post Anesthesia Care Unit in [address] [phone] Cristhian Grant M.B., Ch.B., Ph.D. [address] [place] [phone] 07/16/2023 12:06 PM ATTORNEY AT LAW - 07/16/2023 3:35 PM ATTORNEY AT LAW Surgery RST ROMB MAIN OR [facility] [place] [phone] Cristhian Grant M.B., Ch.B., Ph.D. [address] [place] [phone] CREATION FISTULA RADIOCEPHALIC ARTERIOVENOUS 07/20/2023 11:00 AM CDT Office Visit Department of Orthopedic Surgery in [address] [phone] Cindy Walker D.PLeidaMLeida [address] [place] [phone] Discharge Disposition: Home or Self Care 08/25/2023 3:15 PM CDT Telemedicine Department of Sleep Medicine in [place], [place] [address], [place] [address] Emilee Emanuel APRN, C.N.P., D.N.P., M.S.N. [address], [place] [address] Scheduled Procedures Name Priority Associated Diagnoses Date/Ti me CREATION FISTULA RADIOCEPHALIC ARTERIOVENOUS Chronic Kidney Disease Stage 5 Glomerular Filtration Rate Less Than 15 (HCC) 07/16/2023 12:06 PM ATTORNEY AT LAW CREATION FISTULA BRACHIOCEPHALIC ARTERIOVENOUS Chronic Kidney Disease Stage 5 Glomerular Filtration Rate Less Than 15 (HCC) 07/16/2023 12:06 PM ATTORNEY AT LAW Scheduled Referrals Name Type Priority Associated Diagnoses Orde r Schedule Sleep Medicine - General consult (clinic) Outpatient Referral Routine Hypertension And Chronic Kidney Disease Stage 5 (HCC) Anemia Of Chronic Renal Disease Diabetes Mellitus Type 2 With Diabetic Nephropathy (HCC) Periodic Limb Movement Disorder Dialysis Peritoneal Status (HCC) Fatigue Extreme Expected: 11/04/2022 (Approximate), Expires: 02/05/2024 documented as of this encounter Results * (TTE) 2D ECHO [...] were performed but not reported based on director of revenue's judgment. No regional wall motion abnormalities. Grade [...] volumes were performedbut not reported based on director of revenue's judgment. No regional wall motionabnormalities. Grade 1/3 [...] Lincoln Jr., D.O. CV ECHO PROC EDURES * Thyroid Function [place] (11/10/2022 10:09 AM CDT) Pathologist [facility] TSH, Sensitive 4.2 0.3 - 4.2 mIU/L 11/10/2022 11:14 AM CDT [facility] Blood (Blood, Venous) 11/10/2022 10:09 AM CDT 11/10/2022 10:12 AM CDT Wilfrid Lincoln Jr., D.O. LAB BLOOD AD D-ON [facility] [address] [place] [address], [facility] [place] [address] * ECG 12 Lead (11/10/2022 9:51 AM CDT) Ventricular Rate ECG/Min 77 BPM MUSE TX Interval 150 ms MUSE QRSD Interval 108 ms MUSE QT Interval 370 ms MUSE QTC Interval 418 ms MUSE P Pandora 62 degrees MUSE R Pandora -22 degrees MUSE T Wave Pandora 119 degrees MUSE 11/10/2022 9:51 AM CDT [...] in inferior leads Reviewed by JANA Patricia Christine Worley Jr.OLeida ECG ORDERABL ES MUSE NA documented in this encounter Visit Diagnoses Diagnosis Hypertension And Chronic Kidney Disease Stage 5 (HCC)- Primary Anemia Of Chronic Renal Disease Diabetes Mellitus Type 2 With Diabetic Nephropathy (HCC) Periodic Limb Movement Disorder Dialysis Peritoneal Status (HCC) Fatigue Extreme Hypertension And Chronic Kidney Disease Stage 5 (HCC) Anemia Of Chronic Renal Disease Diabetes Mellitus Type 2 With Diabetic Nephropathy (HCC) Periodic Limb Movement Disorder Dialysis Peritoneal Status (HCC) Fatigue Extreme Hypertension And Chronic Kidney Disease Stage 5 (HCC) Anemia Of Chronic Renal 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 [address] [phone] PCP - General Family Medicine 04/05/21 documented as of this encounter
[2023-06-24 18:18] LABS: Chloride* 97 mmol/L (96-114); Potassium* 4.3 mmol/L (3.6-5.1); Sodium* 132 mmol/L (135-149)
--- OUTSIDE RECORDS SUMMARY | 2023-06-24 18:18 | XMS_ITS | Encounter Summary ---
Author Name Unknown Organization [facility] Address [address] [place] [address] Care Team Providers Care Software Quality Assurance Analyst Name Role Phone Allyn Alfredo M.D. Primary Care Pro vider Encounter Details Date Type Department Care Team (Latest Contact Info) Description 07/29/2022 2:58 PM CDT - 07/29/2022 11:59 PM CDT Hospital Encounter Department of Laboratory Medicine in [address] [phone] Allyn Alfredo M.D. [address] [place] [phone] Diabetes Mellitus Type 2 With Diabetic Neuropathy (HCC) Discharge Disposition: Home or Self Care [...] afraid of your partner or ex-partner? No 03/19/2022 Within the last year, have y ou been humiliated or emotionally abused in other ways by your partner or ex-partner? No Within the last year, have y ou been kicked, hit, slapped, or otherwise physically hurt by your partner or ex-partner? No 03/19/2022 Within the last year, have y ou been raped or forced to have any kind of sexual activity by your partner or ex-partner? No 03/19/2022 Social Connection and Isolation Panel [NHANES] A nswer Date Recorded In a typical week, how many times do you talk on the phone with family, friends, or neighbors? Once a week 03/19/20 How often do you get togethe r with friends or relatives? Once a week 03/19/2022 How often do you attend chur ch or uatsdin services? 1 to 4 times per year 03/19/2022 Do you belong to any clubs o r organizations such as muslim groups, unions, fraternal or athletic groups, or school groups? No 03/19/2022 How often do you attend meet ings of the clubs or organizations you belong to? 1 to 4 times per year 03/19/2022 Are you , , di vorced, , never , or living with a partner? 03/19/2022 AUDIT-C Answer Date Recorded Q1: How often do you have a drink containing alc ohol? Monthly or less 03/19/2022 Q2: How many drinks containi ng alcohol do you have on a typical day when you are drinking? 1 or 2 03/19/2022 Q3: How often do you have si x or more drinks on one occasion? Never 03/19/2022 Overall Financial Resource Strain (CARDIA) Answe r Date Recorded How hard is it for you to pa y for the very basics like food, housing, medical care, and heating? Somewhat hard 03/19/2022 PHQ-2 Answer Date Recorded PHQ-2 Score 0 07/25/2022 [facility] of Occupat ional Health - Occupational Stress Questionnaire Answer Date Recorded Do you feel stress - tense, restless, nervous, or anxious, or unable to sleep at night because your mind is troubled all the time - these days? Not at all 03/19/2022 Exercise Vital Sign Answer Date Recorde d On average, how many days pe r week do you engage in moderate to strenuous exercise (like a brisk walk)? 0 days 03/19/2022 On average, how many minutes do you engage in exercise at this level? 30 min 03/19/2022 Hunger Vital Sign Answer Date Recorded Within the past 12 months, y ou worried that your food would run out before you got the money to buy more. Never true 03/19/20 22 Within the past 12 months, t he food you bought just didn't last and you didn't have money to get more. Never true 03/19/2022 PRAPARE - Transportation Answer Date Re corded In the past 12 months, has l ack of transportation kept you from medical appointments or from getting medications? No 01/2022 In the past 12 months, has l ack of transportation kept you from meetings, work, or from getting things needed for daily living? No 03/19/2022 Housing Stability Vital Sign Answer Jason e Recorded In the last 12 months, was t here a time when you were not able to pay the mortgage or rent on time? No 03/19/2022 In the last 12 months, how many places have you lived? 1 03/19/2022 In the last 12 months, was t here a time when you did not have a steady place to sleep or slept in a senior living (including now)? No 03/19/2022 Nutrition Answer Date Recorded Nutrition: EVOO Fat Source Yes 03/19 On average, how many serving s of fruits and vegetables do you eat per day (serving size is equal to 1 cup or approximately the size of a tennis ball)? 2-3 03/19/2022 Dental Answer Date Recorded Dental: Regular Dentist Yes 11/04/19 21 Employment Answer Date Recorded Employment status Retired 03/19/2022 Education Answer Date Recorded What is the highest level of school you have completed or the highest degree you have received? Some college, no degree 10/24/2018 Sex and Gender Information Value Date Recorded Sex Assigned at Female 03/27/2017 3:30 PM EXHIBIT SPECIALIST Gender Identity Female 03/27/2017 3:30 PM EXHIBIT SPECIALIST Sexual Orientation Straight 03/27/2017 3: 30 PM EXHIBIT SPECIALIST documented as of this encounter Medications at Time of Discharge Medication Sig Dispensed Refills Start Date End Date aspirin [address] tablet Take 1 tablet by mouth daily. 0 blood-glucose meter,continuous (Dexcom G7 Forest Fire Prevention Specialist) misc Use as directed 3 (three) times [...] 01/09/2023 gabapentin (NEURONTIN) 100 mg capsule Take 2 capsules (200 mg total) by mouth at bedtime. Restless leg syndrome 180 capsule 3 10/29/2021 09/02/2022 gentamicin sulfate 1.2 g sterile powder Apply 1 application topically as needed. 0 02/23/2023 insulin glargine (Basaglar KwikPen U-100 Insulin) 100 unit/mL (3 mL) injection Inject 12 Units under the skin at bedtime. 15 mL 3 07/29/2022 09/02/2022 losartan (COZAAR) 50 mg tablet Take 1 [...] (Latest Contact Info) Description 07/09/2023 8:20 AM EXHIBIT SPECIALIST Appointment Department of Laboratory Medicine in [address] [phone] Allyn Alfredo M.D. [address] [place] [phone] 07/09/2023 9:15 AM EXHIBIT SPECIALIST Office Visit Department of Family Medicine, [facility], in [address] [phone] Allyn Alfredo M.D. [address] [place] [phone] 07/16/2023 12:06 PM EXHIBIT SPECIALIST Hospital Encounter Post Anesthesia Care Unit in [place], [place] [address] [place] [address] Cristhian Grant M.B., Ch.B., Ph.D. [address] [place] [address] 07/16/2023 12:06 PM EXHIBIT SPECIALIST - 07/16/2023 3:35 PM EXHIBIT SPECIALIST Surgery RST ROMB MAIN OR [address] [place] [phone] Cristhian Grant M.B., Ch.B., Ph.D. [address] [place] [address] CREATION FISTULA RADIOCEPHALIC ARTERIOVENOUS 07/20/2023 11:00 AM CDT Office Visit Department of Orthopedic Surgery in [address] [phone] Cindy Walker D.PLeidaMLeida [address] [place] [phone] Discharge Disposition: Home or Self Care 08/25/2023 3:15 PM CDT Telemedicine Department of Sleep Medicine in [place], [place] [address] [phone] Emilee Emanuel APRN, C.N.P., D.N.P., M.S.N. [address] [phone] Scheduled Procedures Name Priority Associated Diagnoses Date/Ti me CREATION FISTULA RADIOCEPHALIC ARTERIOVENOUS Chronic Kidney Disease Stage 5 Glomerular Filtration Rate Less Than 15 (HCC) 07/16/2023 12:06 PM EXHIBIT SPECIALIST CREATION FISTULA BRACHIOCEPHALIC ARTERIOVENOUS Chronic Kidney Disease Stage 5 Glomerular Filtration Rate Less Than 15 (HCC) 07/16/2023 12:06 PM EXHIBIT SPECIALIST documented as of this encounter Procedures Procedure Name Priority Date/Time Associated Diagnosis Comments HEMOGLOBIN A1C, B Routine 07/29/2022 3:0 5 PM CDT Diabetes Mellitus Type 2 With Diabetic Neuropathy (HCC) documented in this encounter Results * (ABNORMAL) Hemoglobin A1c (07/29/2022 3:05 PM CDT) Hemoglobin A1c, B 7.2(H) 4.2 - 5.6 % 07/29/2022 3:19 PM CDT CNFL Comment: Hemoglobin A1c values greater than or equal to 6.5 percent are diagnostic for diabetes mellitus. ??Diagnosis should be confirmed by repeat testing. ??In diabetic patients, HbA1c goals should be discussed with healthcare provider. Blood (Blood, Venous) 07/29/2022 3:05 PM CDT 07/29/2022 3:07 PM CDT Allyn Ryan M.D. LAB BLOOD ADD-ON [facility] [address] [place] [address], [facility] in [address] [address] documented in this encounter Visit Diagnoses Diagnosis Diabetes Mellitus Type 2 With Diabetic Neuropathy (HCC) Chronic Kidney Disease Stage 5 Glomerular Filtration Rate Less Than 15 (HCC) documented in this encounter Additional Health Concerns Assessment Noted Time PHQ-9 Depression Total Score: 5 06/25/19 16 1:22 PM EXHIBIT SPECIALIST documented as of this encounter Care Teams Software Quality Assurance Analyst Relationship Specialty Start Date End Date Allyn Alfredo M.D. [address] [place] [phone] PCP - General Family Medicine 04/05/21 documented as of this encounter
--- OUTSIDE RECORDS SUMMARY | 2023-06-24 18:18 | XMS_ITS | Encounter Summary ---
Author Name Unknown Organization [facility] Address [address] [place] [address] Care Team Providers Care Drilling Assistant Name Role Phone Allyn Alfredo M.D. Primary Care Pro vider Encounter Details Date Type Department Care Team (Latest Contact Info) Description 05/26/2022 Clinical Communication Department of Ophthalmology in [place], [place] [address] [place] [address] Provider, Unknown Social History Tobacco Use Types [...] often do you attend chur ch or worship services? 1 to 4 times per year [...] PHQ-2 Answer Date Recorded PHQ-2 Score 0 09/23/2021 [facility] of Occupat ional Health [...] slept in a correction (including now)? No 03/19/2022 Nutrition Answer Date [...] Sex Assigned at Female 03/27/2017 3:30 PM TOOL DESIGN CHECKER Gender Identity Female 03/27/2017 3:30 PM TOOL DESIGN CHECKER Sexual Orientation Straight 03/27/2017 3: 30 PM TOOL DESIGN CHECKER documented as of this encounter Plan of Treatment Upcoming Encounters Date Type Department Care Team (Latest Contact Info) Description 07/09/2023 8:20 AM TOOL DESIGN CHECKER Appointment Department of Laboratory Medicine in [address] [phone] Allyn Alfredo M.D. [address] [place] [phone] 07/09/2023 9:15 AM TOOL DESIGN CHECKER Office Visit Department of Family Medicine, [facility], in [address] [phone] Allyn Alfredo M.D. [address] [place] [phone] 07/16/2023 12:06 PM TOOL DESIGN CHECKER Hospital Encounter Post Anesthesia Care Unit in [place] [phone] [place] [phone] Cristhian Grant M.B., Ch.B., Ph.D. [address] [place] [phone] 07/16/2023 12:06 PM TOOL DESIGN CHECKER - 07/16/2023 3:35 PM TOOL DESIGN CHECKER Surgery RST ROMB MAIN OR [address] [place] [phone] Cristhian Grant M.B., Ch.B., Ph.D. [address] [place] [phone] CREATION FISTULA RADIOCEPHALIC ARTERIOVENOUS 07/20/2023 11:00 AM CDT Office Visit Department of Orthopedic Surgery in [address] [phone] Cindy Walker D.PAv [address] [place] [phone] Discharge Disposition: Home or Self Care 08/25/2023 3:15 PM CDT Telemedicine Department of Sleep Medicine in [place], [place] [address], [place] [address] Emilee Emanuel APRN, C.N.P., D.N.P., M.S.N. [address], [place] [phone] Scheduled Procedures Name Priority Associated Diagnoses Date/Ti me CREATION FISTULA RADIOCEPHALIC ARTERIOVENOUS Chronic Kidney Disease Stage 5 Glomerular Filtration Rate Less Than 15 (HCC) 07/16/2023 12:06 PM TOOL DESIGN CHECKER CREATION FISTULA BRACHIOCEPHALIC ARTERIOVENOUS Chronic Kidney Disease Stage 5 Glomerular Filtration Rate Less Than 15 (HCC) 07/16/2023 12:06 PM TOOL DESIGN CHECKER documented as of this encounter Visit Diagnoses Not on filedocumented in this encounter Additional Health Concerns Assessment Noted Time PHQ-9 Depression Total Score: 5 06/25/19 16 1:22 PM TOOL DESIGN CHECKER documented as of this encounter Care Teams Drilling Assistant Relationship Specialty Start Date End Date Allyn Alfredo M.D. [address] [phone] PCP - General Family Medicine 04/05/21 documented as of this encounter
--- OUTSIDE RECORDS SUMMARY | 2023-06-24 18:18 | XMS_ITS | Encounter Summary ---
Author Name Unknown Organization [facility] Address [address] [place] [address] Care Team Providers Care Wash Test Checker Name Role Phone Allyn Alfredo M.D. Primary Care Pro vider Reason for Visit * Reason Comments Med Refill Encounter Details Date Type Department Care Team (Late st Contact Info) Description 07/25/2022 Refill Division of Nephrology and Hypertension in [place], [place] [address] [place] [phone] Wilfrid [place] Jr., D.O. [address] [place] [phone] Med Refill Social History Tobacco Use Types [...] 03/19/2022 How often do you attend chur or latter day services? 1 to 4 [...] Answer Date Recorded PHQ-2 Score 0 07/25/2022 [facility] [...] slept in a fci (including now)? No 03/19/2022 Nutrition Answer Date [...] Sex Assigned at Female 03/27/2017 3:30 PM ROLLER INSPECTOR AND MENDER Gender Identity Female 03/27/2017 3:30 PM ROLLER INSPECTOR AND MENDER Sexual Orientation Straight 03/27/2017 3: 30 PM ROLLER INSPECTOR AND MENDER documented as of this encounter Plan of Treatment Upcoming Encounters Date Type Department Care Team (Latest Contact Info) Description 07/09/2023 8:20 AM ROLLER INSPECTOR AND MENDER Appointment Department of Laboratory Medicine in [address] [phone] Allyn Alfredo M.D. [address] [place] [phone] 07/09/2023 9:15 AM ROLLER INSPECTOR AND MENDER Office Visit Department of Family Medicine, [facility], in [address] [phone] Allyn Alfredo M.D. [address] [place] [phone] 07/16/2023 12:06 PM ROLLER INSPECTOR AND MENDER Hospital Encounter Post Anesthesia Care Unit in [address] [phone] Cristhian Grant M.B., Ch.B., Ph.D. [address] [place] [phone] 07/16/2023 12:06 PM ROLLER INSPECTOR AND MENDER - 07/16/2023 3:35 PM ROLLER INSPECTOR AND MENDER Surgery [facility]IN OR [address] [place] [phone] Cristhian Grant M.B., Ch.B., Ph.D. [address] [place] [phone] CREATION FISTULA RADIOCEPHALIC ARTERIOVENOUS 07/20/2023 11:00 AM CDT Office Visit Department of Orthopedic Surgery in [address] [phone] Cindy Walker D.P.M. [address] [place] [phone] Discharge Disposition: Home or Self Care 08/25/2023 3:15 PM CDT Telemedicine Department of Sleep Medicine in [place], [place] [address] [place] [phone] Emilee Emanuel APRN, C.N.P., D.N.P., M.S.N. [address] [place] [phone] Scheduled Procedures Name Priority Associated Diagnoses Date/Ti me CREATION FISTULA RADIOCEPHALIC ARTERIOVENOUS Chronic Kidney Disease Stage 5 Glomerular Filtration Rate Less Than 15 (HCC) 07/16/2023 12:06 PM ROLLER INSPECTOR AND MENDER CREATION FISTULA BRACHIOCEPHALIC ARTERIOVENOUS Chronic Kidney Disease Stage 5 Glomerular Filtration Rate Less Than 15 (HCC) 07/16/2023 12:06 PM ROLLER INSPECTOR AND MENDER documented as of this encounter Visit Diagnoses Not on filedocumented in this encounter Additional Health Concerns Assessment Noted Time PHQ-9 Depression Total Score: 5 06/25/19 16 1:22 PM ROLLER INSPECTOR AND MENDER documented as of this encounter Care Teams Wash Test Checker Relationship Specialty Start Date End Date Byers Allyn Ryan M.D. [address] [place] [phone] PCP - General Family Medicine 04/05/21 documented as of this encounter
--- OUTSIDE RECORDS SUMMARY | 2023-06-24 18:18 | XMS_ITS | Encounter Summary ---
Author Name Unknown Organization [facility] Address [address] [place] [address] Care Team Providers Care Ibm Websphere Commerce Consultant Name Role Phone Gavi Tong Unavailable Allyn Alfredo MD Primary Care Provi kristen Encounter Details Date Type Department Care Team (Late st Contact Info) Description 01/26/2019 Orders Only [facility] Laboratory [address] [place] [phone] Vipul Doyle MD [facility] [address] [place] [address] [place] [address] Pre-operative laboratory examination (Primary Dx) Social History Tobacco Use Types Packs/Day Years Used Date Smoking Tobacco: Former Cigarettes 0.5 20 Q uit: 09/21/2010 Smokeless Tobacco: Never Alcohol Use Standard Drinks/Week Comments Yes 0 (1 standard drink = 0.6 oz pur e alcohol) Rarely Sex and Gender Information Value Date Recorded Sex Assigned at Not on file Gender Identity Not on file Sexual Orientation Not on file documented as of this encounter Plan of Treatment Not on file documented as of this encounter Results * Methicillin Resistant Staph Aureus PCR (01/26/2019 11:00 AM CDT) Specimen Description Precious 01/26/2019 11:20 AM CDT [facility] Methicillin Resist/Sens S. aureus PCR Negative NEG^Negat eddie 01/26/2019 2:45 PM CDT [facility] Comment: MRSA Negative: SA Positive MRSA target DNA not detected, presumed negative for MRSA colonization or the number of bacteria present may be below the limit of detection. Staphylococcus aureus target DNA detected, presumed positive for SA colonization. A positive test does not necessarily indicate the presence of viable organisms. ??It is, however, presumptive for the presence of SA. ??This result does not preclude MRSA nasal colonization. FDA approved assay performed using KeraFAST GeneXpert(R) real-time PCR. Nasal structure (body structure) 01/26/2019 11:00 AM CDT 01/26/2019 11:20 AM CDT Vipul Doyle MD LAB - MICRO GENERAL ORDERABLES [facility] [address] [place], [place] [phone] [place] [address] [phone] documented in this encounter Visit Diagnoses Diagnosis Pre-operative laboratory examination- Primary Pre-procedural laboratory examination documented in this encounter Care Teams Ibm Websphere Commerce Consultant Relationship Specialty Start Date End Date Gavi Tong PCP - Audiology 06/13/09 Allyn Alfredo MD PCP - General Family Practice 01/24/19 documented as of this encounter
--- OUTSIDE RECORDS SUMMARY | 2023-06-24 18:18 | XMS_ITS | Referral Summary ---
Author Name Unknown Organization [facility] Address [address] [place] [address] Care Team Providers Care Body Man Name Role Phone Gavi Tong Unavailable Allyn Alfredo MD Primary Care Provi kristen Allergies Active Allergy Reactions Criticality Noted Date Comments Atorvastatin 01/24/2019 Didn't feel good on it Clonidine 01/24/2019 [place] like BP was not controlled Penicillins 01/24/2019 Unsure (tolerated Ancef before) Medications Medication Sig Dispensed Refills Start Date End Date Status torsemide (DEMADEX) 10 MG tablet Take 10 mg by mouth 2 times daily 0 Active calcium acetate (PHOSLO) 667 MG CAPS capsule Take 667 mg by mouth 3 times daily (with meals) 0 Active gabapentin (NEURONTIN) 100 MG capsule Take 100 mg by mouth 3 times daily 0 Active allopurinol (ZYLOPRIM) 100 MG tablet Take 100 mg by mouth daily 0 Active carvedilol (COREG) 25 MG tablet Take 25 mg by mouth 2 times daily (with meals) 0 Active pravastatin (PRAVACHOL) 20 MG tablet Take 20 mg by mouth daily 0 Active insulin glargine (BASAGLAR KWIKPEN) 100 UNIT/ML pen Inject 10 Units Subcutaneous At Bedtime 0 Active ferrous fumarate 65 mg, tolowa dee-ni'. FE,-Vitamin C 125 mg (VITRON C) 65-125 MG TABS tablet Take 1 tablet by mouth daily 0 Active glipiZIDE (GLUCOTROL) 5 MG tablet Take 5 mg by mouth daily 0 Active fish oil-omega-3 fatty acids 1000 MG capsule Take 1 g by mouth 2 times daily 0 Active aspirin 81 MG EC tabletIndications: S/P lumbar fusion Take 1 tablet (81 mg) by mouth daily 1 tablet 0 02/08/2019 Active oxyCODONE (ROXICODONE) 5 MG tabletIndications: S/P lumbar fusion Take 1 tablet (5 mg) by mouth every 4 hours as needed for moderate to severe pain 42 tablet 0 02/07/2019 Active Active Problems Problem Noted Date Diagnosed Date S/P lumbar fusion 02/04/2019 Immunizations Name Administration Dates Next Due Influenza (High Dose) 3 valent vaccine 9 Social History Tobacco Use Types Packs/Day Years [...] Sign Reading Time Taken Comments Blood Pressure 143/59 02/07/2019 11:08 AM CDT Pulse 66 02/07/2019 11:08 AM CDT Temperature 36.6 ??C (97.8 ??F) 02/07/2019 7:33 AM CD T Respiratory Rate 16 02/07/2019 9:56 AM CDT Oxygen Saturation 96% 02/07/2019 7:33 AM CDT Inhaled Oxygen Concentration - - Weight 99.8 kg (220 lb) 02/04/2019 5:50 AM CDT Height 167.6 cm (5' 6) 02/04/2019 5:50 AM CDT p er pt Body Mass Index 35.51 02/04/2019 5:50 AM CDT Plan of Treatment Not on file Medical Devices Implanted Type Area Washer Repairman Device Identifier Shelf Expiration Date Model / Serial / Lot 5.5 X 45mm Curved Basil Implanted:Qty: 1 on 02/04/2019 by Vipul Doyle MD at [facility] N/A: Spine Lumbar [employer] [id number] / / [id number] Advance Directives For more information, please contact: [phone] Documents on File Type Date Recorded Patient Farm Products Shipper Expl anation Advance Directives and Living Will 02/09/2019 10:17 AM Health Care Directiv e 06/21/2015 Advance Directives and Living Will 02/09/2019 10:16 AM Health Care Directiv e 10/18/2002 - Latest Code Status on File Code Status Date Activated Date Inactivated Comments Full Code 02/06/2019 9:40 AM Question Answer Comments Code status determined by: Discussion wi th patient/legal decision maker Code Status History Code Status Date Activated Date Inactivated Comments Full Code 02/04/2019 12:07 PM 02/06/2019 9:40 AM Question Answer Comments Code status determined by: Discussion wi th patient/legal decision maker Healthcare Agents on File Name Relationship Healthcare Agent [facility] p Communication Radha Medina Daughter Health Care Agent Femi GeorgeLeida Carol First Alternate Health Care Agent Care Teams Body Man Relationship Specialty Start Date End Date Gavi Tong PCP - Audiology 06/13/09 Allyn Alfredo MD PCP - General Family Practice 01/24/19
--- OUTSIDE RECORDS SUMMARY | 2023-06-24 18:18 | XMS_ITS | Encounter Summary ---
Author Name Unknown Organization [facility] Address [address] [place] [address] Care Team Providers Care Landfill Gas Plant Field Technician Name Role Phone Allyn Alfredo M.D. Primary Care Pro vider Encounter Details Date Type Department Care Team (Late st Contact Info) Description 07/29/2022 Orders Only Division of Nephrology and Hypertension in [place], [place] [address] [place] [phone] Wilfrid [place] Jr., D.O. [address] [place] [phone] Social History Tobacco Use Types Packs/Day Years [...] week 03/19/2022 How often do you attend [facility] or pentecostal services? 1 to 4 times [...] in a long term (including now)? No 03/19/2022 Nutrition Answer Date [...] Sex Assigned at Female 03/27/2017 3:30 PM BUZZSAW OPERATOR Gender Identity Female 03/27/2017 3:30 PM BUZZSAW OPERATOR Sexual Orientation Straight 03/27/2017 3: 30 PM BUZZSAW OPERATOR documented as of this encounter Plan of Treatment Upcoming Encounters Date Type Department Care Team (Latest Contact Info) Description 07/09/2023 8:20 AM BUZZSAW OPERATOR Appointment Department of Laboratory Medicine in [address] [phone] Allyn Alfredo M.D. [address] [place] [phone] 07/09/2023 9:15 AM BUZZSAW OPERATOR Office Visit Department of Family Medicine, [facility], in [address] [phone] Allyn Alfredo M.D. [address] [place] [phone] 07/16/2023 12:06 PM BUZZSAW OPERATOR Hospital Encounter Post Anesthesia Care Unit in [place] [address] [place] [phone] Cristhian Grant M.B., Ch.B., Ph.D. [address] [place] [phone] 07/16/2023 12:06 PM BUZZSAW OPERATOR - 07/16/2023 3:35 PM BUZZSAW OPERATOR Surgery [facility]IN OR [address] [place] [phone] Cristhian Grant M.B., Ch.B., Ph.D. [address] [place] [phone] CREATION FISTULA RADIOCEPHALIC ARTERIOVENOUS 07/20/2023 11:00 AM CDT Office Visit Department of Orthopedic Surgery in [address] [phone] Cindy Walker D.PLeidaMLeida [address] [place] [phone] Discharge Disposition: Home or Self Care 08/25/2023 3:15 PM CDT Telemedicine Department of Sleep Medicine in [place], [place] [address] [place] [phone] Emilee Emanuel APRN, C.N.P., D.N.P., M.S.N. [address] [phone] Scheduled Procedures Name Priority Associated Diagnoses Date/Ti me CREATION FISTULA RADIOCEPHALIC ARTERIOVENOUS Chronic Kidney Disease Stage 5 Glomerular Filtration Rate Less Than 15 (HCC) 07/16/2023 12:06 PM BUZZSAW OPERATOR CREATION FISTULA BRACHIOCEPHALIC ARTERIOVENOUS Chronic Kidney Disease Stage 5 Glomerular Filtration Rate Less Than 15 (HCC) 07/16/2023 12:06 PM BUZZSAW OPERATOR documented as of this encounter Visit Diagnoses Not on filedocumented in this encounter Additional Health Concerns Assessment Noted Time PHQ-9 Depression Total Score: 5 06/25/19 16 1:22 PM BUZZSAW OPERATOR documented as of this encounter Care Teams Landfill Gas Plant Field Technician Relationship Specialty Start Date End Date Allyn Alfredo M.D. [address] [phone] PCP - General Family Medicine 04/05/21 documented as of this encounter
--- OUTSIDE RECORDS SUMMARY | 2023-06-24 18:18 | XMS_ITS | Encounter Summary ---
Author Name Unknown Organization [facility] Address [facility] [place] [address] Care Team Providers Care Telemarketing Supervisor Name Role Phone Frw, None Primary Care Provider Unavailslime e Femi Ayala MD Unavailable [phone] Gavi Tong Unavailable Encounter Details Date Type Department Care Team (Late st Contact Info) Description 06/15/2009 2:[address] [facility] in [facility] [address] [place] [phone] Meet Ayala MD [address] [phone] Social History Tobacco Use Types [...] on filedocumented in this encounter Care Teams Telemarketing Supervisor Relationship Specialty Start Date End Date Frw, Yves PCP - General 06/02/00 01/08/17 Femi Ayala MD XXX RETIRED XXX [address] [place], [place] [phone] PCP - ENT 06/13/09 04/20/18 Gavi Tong XXX RETIRED XXX [address] [facility] [address] [place] [address] PCP - Audiology 06/13/09 documented as of this encounter
--- OUTSIDE RECORDS SUMMARY | 2023-06-24 18:18 | XMS_ITS | Encounter Summary ---
Author Name Unknown Organization [facility] Address [address] [place] [address] Care Team Providers Care Double Needle Stitcher Name Role Phone Allyn Alfredo M.D. Primary Care Pro vider Encounter Details Date Type Department Care Team (Late st Contact Info) Description 09/02/2022 Orders Only Division of Nephrology and Hypertension in [place], [place] [address] [place] [phone] Wilfrid [place] Jr., D.O. [address] [place] [phone] Social History Tobacco Use Types Packs/Day Years [...] week 03/19/2022 How often do you attend [facility] or baptism services? 1 to 4 times per year 03/19/2022 Do you belong to any clubs o r organizations such as catholic groups, unions, fraternal or athletic groups, [...] Answer Date Recorded PHQ-2 Score 0 07/25/2022 [facility] - Occupational [...] slept in a retirement (including now)? No 03/19/2022 Nutrition Answer Date [...] Sex Assigned at Female 03/27/2017 3:30 PM HUMAN RESOURCES COMMUNICATIONS MANAGER Gender Identity Female 03/27/2017 3:30 PM HUMAN RESOURCES COMMUNICATIONS MANAGER Sexual Orientation Straight 03/27/2017 3: 30 PM HUMAN RESOURCES COMMUNICATIONS MANAGER documented as of this encounter Plan of Treatment Upcoming Encounters Date Type Department Care Team (Latest Contact Info) Description 07/09/2023 8:20 AM HUMAN RESOURCES COMMUNICATIONS MANAGER Appointment Department of Laboratory Medicine in [address] [phone] Allyn Alfredo M.D. [address] [place] [phone] 07/09/2023 9:15 AM HUMAN RESOURCES COMMUNICATIONS MANAGER Office Visit Department of Family Medicine, [facility], in [address] [phone] Allyn Alfredo M.D. [address] [place] [phone] 07/16/2023 12:06 PM HUMAN RESOURCES COMMUNICATIONS MANAGER Hospital Encounter Post Anesthesia Care Unit in [place] [address] [place] [phone] Cristhian Grant M.B., Ch.B., Ph.D. [address] [place] [phone] 07/16/2023 12:06 PM HUMAN RESOURCES COMMUNICATIONS MANAGER - 07/16/2023 3:35 PM HUMAN RESOURCES COMMUNICATIONS MANAGER Surgery [facility] OR [address] [place] [phone] Cristhian Grant M.B., Ch.B., Ph.D. [address] [place] [phone] CREATION FISTULA RADIOCEPHALIC ARTERIOVENOUS 07/20/2023 11:00 AM CDT Office Visit Department of Orthopedic Surgery in [address] [phone] Cindy Walker D.PLeidaMLeida [address] [place] [phone] Discharge Disposition: Home or Self Care 08/25/2023 3:15 PM CDT Telemedicine Department of Sleep Medicine in [place], [place] [address] [place] [phone] Emilee Emanuel APRN, C.N.P., D.N.P., M.S.N. [address] [phone] Scheduled Procedures Name Priority Associated Diagnoses Date/Ti me CREATION FISTULA RADIOCEPHALIC ARTERIOVENOUS Chronic Kidney Disease Stage 5 Glomerular Filtration Rate Less Than 15 (HCC) 07/16/2023 12:06 PM HUMAN RESOURCES COMMUNICATIONS MANAGER CREATION FISTULA BRACHIOCEPHALIC ARTERIOVENOUS Chronic Kidney Disease Stage 5 Glomerular Filtration Rate Less Than 15 (HCC) 07/16/2023 12:06 PM HUMAN RESOURCES COMMUNICATIONS MANAGER documented as of this encounter Visit Diagnoses Not on filedocumented in this encounter Additional Health Concerns Assessment Noted Time PHQ-9 Depression Total Score: 5 06/25/19 16 1:22 PM HUMAN RESOURCES COMMUNICATIONS MANAGER documented as of this encounter Care Teams Double Needle Stitcher Relationship Specialty Start Date End Date Allyn Alfredo M.D. [address] [phone] PCP - General Family Medicine 04/05/21 documented as of this encounter
--- OUTSIDE RECORDS SUMMARY | 2023-06-24 18:18 | XMS_ITS | Encounter Summary ---
Author Name Unknown Organization [facility] Address [address] [place] [address] Care Team Providers Care Cryolite Recovery Operator Name Role Phone Allyn Alfredo M.D. Primary Care Pro vider Reason for Referral * Outpatient (Routine) - Closed Specialty Diagnoses / Procedures Referred By Esther zamorano Referred To Contact Family Medicine Allyn Alfredo M.D. [address] [place] [phone] [facility] Region Referral ID Status Reason Start Date Expiration Date Visits Re quested Visits Authorized [id number] Closed 07/29/2022 07/28/2025 1 1 * Outpatient (Routine) - Authorized Specialty Diagnoses / Procedures Referred By Esther zamorano Referred To Contact Allyn Alfredo M.D. [address] [place] [phone] [facility] Region Referral ID Status Reason Start Date Expiration Date V isits Requested Visits Authorized [id number] Authorized 07/29/2022 07/28/2025 1 1 Reason for Visit * Reason Comments Med Management Had labs prior to ap pt * Outpatient (Routine) - Closed Specialty Diagnoses / Procedures Referred By Esther zamorano Referred To Contact Family Medicine Allyn Alfredo M.D. [address] [place] [phone] [facility] Region Referral ID Status Reason Start Date Expiration Date Visits Re quested Visits Authorized [id number] Closed 03/21/2022 03/20/2025 1 1 Encounter Details Date Type Department Care Team (Late st Contact Info) Description 07/29/2022 5:00 PM CDT Office Visit Department of Family Medicine, [facility], in [address] [phone] Allyn Alfredo M.D. [address] [place] [phone] Diabetes Mellitus Type 2 With Diabetic Neuropathy (HCC) (Primary Dx); Diabetes Mellitus Type 2 With Diabetic Nephropathy (HCC); Hypertension And Chronic Kidney Disease Stage 5 (HCC); Dialysis Peritoneal Status (HCC); Hyperparathyroidism Renal Secondary (HCC); Hyperlipidemia; Radiculopathy Lumbar; Restless Leg Syndrome; Annual Medicare Examination Return Social History Tobacco Use Types Packs/Day Years [...] Date Recorded PHQ-2 Score 0 07/25/2022 [facility] ional [...] slept in a [facility] (including now)? No 03/19/2022 Nutrition Answer Date [...] Sex Assigned at Female 03/27/2017 3:30 PM COMPUTER DISCOVERY TEACHER Gender Identity Female 03/27/2017 3:30 PM COMPUTER DISCOVERY TEACHER Sexual Orientation Straight 03/27/2017 3: 30 PM COMPUTER DISCOVERY TEACHER documented as of this encounter Last Filed Vital Signs Vital Sign Reading Time Taken Comments Blood Pressure 172/78 07/29/2022 4:53 PM CDT Pulse 97 07/29/2022 4:50 PM CDT Temperature 36 ??C (96.8 ??F) 07/29/2022 4:50 PM CDT Respiratory Rate 19 07/29/2022 4:50 PM CDT Oxygen Saturation 97% 07/29/2022 4:50 PM CDT Inhaled Oxygen Concentration - - Weight 94.6 kg (208 lb 8.9 oz) 07/29/2022 4:50 P M CDT Height 162 cm (5' 3.78) 07/29/2022 4:50 PM CDT Body Mass Index 36.05 07/29/2022 4:50 PM CDT documented in this encounter H&P Notes * Allyn Alfredo M.D. - 07/29/2022 5:00 PM CDT SUBJECTIVE CHIEF COMPLAINT / REASON FOR VISIT Concetta Medina is a 76 y.o. female who presents for evaluation of Med Management (Had labs prior to appt ). HISTORY OF PRESENT ILLNESS Siobhan overall feels well. She is working with her videotape operator to adjust her peritoneal dialysis because her feet have become very swollen in the last few days. She uses the Dexcom monitor to manage her blood sugars. The 2 week average is around 171. She has had approximately 3 lows in the last month down to 90. She is taking Basaglar 12 units at bedtime butis rarely using NovoLog. She will take it if she knows she is making a poor food choice or if her blood sugar is extremely high. Blood pressures at home are typically around 130s to 140s and are best in the middle of the day. She had a steroid injection for her back which did help a little. She has been able to be more mobile. She plans to follow-up with physical therapy for further strengthening. She denies any difficulty with her mood and or concerns with her memory. The following portions of the patients history were reviewed and updated as appropriate: allergies,medications, family history, medical history, problem list, social history and surgical history. Home Environment: Siobhan's home has the following: functional smoke alarms and throw rugs. Advanced Directive Status: Advance directive completed - On file After Visit Summary (AVS) reviewed and provided to patient via printed copy or portal Current Outpatient Medications Medication Sig allopurinoL (ZYLOPRIM) 100 mg tablet TAKE 1 TABLET DAILY amLODIPine (NORVASC) 5 mg tablet Take 1 tablet (5 mg total) by mouth daily. aspirin [address] tablet Take 1 tablet by mouth daily. BD Ultra-Fine Short Pen Needle 31 gauge x 5/16 needle Inject 4 Injection under the skin daily. docosahexaenoic acid/epa (FISH OIL ORAL) Take 1 capsule by mouth daily. folic acid/vit B complex and C (DIALYVITE ORAL) Take 1 tablet by mouth daily. gabapentin (NEURONTIN) 100 mg capsule Take 2 capsules (200 mg total) by mouth at bedtime. Restless leg syndrome gentamicin sulfate 1.2 g sterile powder Apply 1 application topically as needed. insulin glargine (Basaglar KwikPen U-100 Insulin) 100 unit/mL (3 mL) injection Inject 14 Units under the skin at bedtime. losartan (COZAAR) 50 mg tablet Take 1 tablet (50 mg total) by mouth daily. multivitamin renal failure (DIALYVITE) 100-1 mg tablet TAKE 1 TABLET BY MOUTH DAILY WITH DINNER pravastatin (PRAVACHOL) 40 mg tablet Take 1 tablet (40 mg total) by mouth at bedtime. for cholesterol torsemide (DEMADEX) 5 mg tablet Take 1.5 tablets (7.5 mg total) by mouth 2 (two) times a day with meals. blood-glucose meter,continuous (Dexcom G7 Stock Grader) misc Use as directed 3 (three) times a day. blood-glucose meter,continuous misc Use to monitor blood glucose blood-glucose sensor (Dexcom G6 Sensor) device CHANGE EVERY 10 DAYS blood-glucose sensor (Dexcom G7 Sensor) device 1 Device as directed for 10 days. Apply to skin replace every 10 days blood-glucose transmitter (Dexcom G6 Transmitter) device REPLACE EVERY 3 MONTHS calcium acetate,phosphat bind, (PHOSLO) 667 mg (169 mg calcium) capsule TAKE 2 CAPSULES BY MOUTH THREE TIMES A DAY WITH MEALS AND 1 CAPSULE WITH SNACKS sevelamer (RENVELA) 800 mg tablet Take 2 tablets (1,600 mg total) by mouth 3 (three) times a day with meals. The patient's allergies, problem list and medical history portions of the patient's history were reviewed and updated as appropriate. REVIEW OF SYSTEMS Constitutional: - Negative for fatigue, fever, weight gain of more than 10 pounds and weight loss of more than 10 pounds. Eyes: Positive for visual problems. ENT: Positive for difficulty hearing. - Negative for sinus congestion. Respiratory: - Negative for coughing up mucus (phlegm), dry cough, shortness of breath and wheezing. Cardiovascular: - Negative for chest pain, pressure or tightness and rapid or fluttering heart beat. Gastrointestinal: - Negative for abdominal (belly) pain or cramping, constipation, diarrhea, nausea and vomiting. Genitourinary: Positive for difficulty urinating. - Negative for pain with urination and urgency. Musculoskeletal: Positive for back pain. - Negative for pain or stiffness in the joints, joint swelling and muscle pain/stiffness. Neurological: Positive for numbness or shooting pain in hands, arms, legs, or feet. - Negative for headaches. Psychiatric/Behavioral: - Negative for sleep disturbance and feeling down, depressed, or hopeless over past two weeks. OBJECTIVE VITAL SIGNS Blood pressure (!) 172/78, pulse 97, temperature 36 ??C, temperature source Temporal, resp. rate 19, height 162 cm, weight 94.6 kg, SpO2 97 %, not currently . PHYSICAL EXAMINATION Constitutional General: She is not in acute distress. Appearance: She is well-developed. HENT Head: Normocephalic and atraumatic. Right Ear: Tympanic membrane, ear canal and external ear normal. Left Ear: Tympanic membrane, ear canal and external ear normal. Eyes Extraocular Movements: Extraocular movements intact. Pupils: Pupils are equal, round, and reactive to light. Neck Thyroid: No thyromegaly. Vascular: No carotid bruit. Cardiovascular Rate and Rhythm: Normal rate and regular rhythm. Pulses: Dorsalis pedis pulses are 1+ on the right side and 1+ on the left side. Heart sounds: Normal heart sounds. No murmur heard. No gallop. Pulmonary Effort: Pulmonary effort is normal. Breath sounds: Normal breath sounds. Abdominal General: Bowel sounds are normal. Palpations: Abdomen is soft. There is no mass. Tenderness: There is no abdominal tenderness. There is no guarding or rebound. Musculoskeletal Cervical back: Neck supple. Right lower leg: Edema (3+) present. Left lower leg: Edema (3+) present. Right foot: No deformity. Left foot: No deformity. Feet Right foot: Protective Sensation: 8 sites tested. 5 sites sensed. Skin integrity: Dry skin present. No ulcer or skin breakdown. Toenail Condition: Right toenails are abnormally thick. Fungal disease present. Left foot: Protective Sensation: 8 sites tested. 3 sites sensed. Skin integrity: Dry skin present. No ulcer or skin breakdown. Toenail Condition: Left toenails are abnormally thick. Fungal disease present. Lymphadenopathy Cervical: No cervical adenopathy. Skin Findings: No lesion or rash. Neurological General: No focal deficit present. Mental Status: She is alert. Cranial Nerves: No cranial nerve deficit. Psychiatric Mood and Affect: Mood normal. Behavior: Behavior normal. DIAGNOSTICS Results for orders placed or performed during the hospital encounter of 07/29/22 Hemoglobin A1c Result Value Ref Range Hemoglobin A1c, B 7.2 (H) 4.2 - 5.6 % ASSESSMENT / PLAN #1 Diabetes Mellitus Type 2 With Diabetic Neuropathy (HCC) #2 Diabetes Mellitus Type 2 With Diabetic Nephropathy (HCC) A1c is at goal. Foot exam updated. We will continue with current medications. Encouraged healthy diet and regular exercise. Follow-up in 6 months. #3 Hypertension And Chronic Kidney Disease Stage 5 (HCC) #4 Dialysis Peritoneal Status (HCC) #5 Hyperparathyroidism Renal Secondary (HCC) Blood pressure is elevated today. Patient continues to work closely with Nephrology regarding her peritoneal dialysis. She states blood pressure is better in the middle of the day. We will have her return for nurse visit blood pressure check but defer management to her videotape operator. #6 Hyperlipidemia Continue with statin. #7 Radiculopathy Lumbar Encouraged her to return to physical therapy. #8 Restless Leg Syndrome Continue with gabapentin. #9 Annual Medicare Examination Return I updated the written screening schedule for the patient. This included age- appropriate preventive services Medicare covers and recommendations from the USPSTF and ACIP. I discussed age-appropriate screening recommendations and appropriate referrals were made. I recommended daily cardiovascular and resistance exercise and a healthy diet. I discussed her risk factors and conditions with appropriate interventions recommended. Preventive medicine guidelines and safety considerations were discussed. Appropriate laboratory tests were done. We also discussed interventions for fall prevention, nutrition, physical activity and weight management. Advance care planning services have been addressed, and I am willing to follow their wishes. Plan was discussed with patient and is in agreement with plan. All questions were answered, side effects of any/all new medications were discussed. Patient left in no acute distress. Allyn Ryan M.D. documented in this encounter Plan of Treatment Upcoming Encounters Date Type Department Care Team (Latest Contact Info) Description 07/09/2023 8:20 AM COMPUTER DISCOVERY TEACHER Appointment Department of Laboratory Medicine in [address] [phone] Allyn Alfredo M.D. [address] [place] [phone] 07/09/2023 9:15 AM COMPUTER DISCOVERY TEACHER Office Visit Department of Family Medicine, [facility], in [address] [phone] Allyn Alfredo M.D. [address] [place] [phone] 07/16/2023 12:06 PM COMPUTER DISCOVERY TEACHER Hospital Encounter Post Anesthesia Care Unit in [address] [phone] Cristhian Grant M.B., Ch.B., Ph.D. [address] [place] [phone] 07/16/2023 12:06 PM COMPUTER DISCOVERY TEACHER - 07/16/2023 3:35 PM COMPUTER DISCOVERY TEACHER Surgery [facility]IN OR [address] [place] [phone] Cristhian Grant M.B., Ch.B., Ph.D. [address] [place] [phone] CREATION FISTULA RADIOCEPHALIC ARTERIOVENOUS 07/20/2023 11:00 AM CDT Office Visit Department of Orthopedic Surgery in [address] [phone] Cindy Walker D.PAv [address] [facility] [place] [phone] Discharge Disposition: Home or Self Care 08/25/2023 3:15 PM CDT Telemedicine Department of Sleep Medicine in [place], [place] [address] [place] [phone] Emilee Emanuel APRN, C.N.P., D.N.P., M.S.N. [address] [place] [phone] Scheduled Procedures Name Priority Associated Diagnoses Date/Ti me CREATION FISTULA RADIOCEPHALIC ARTERIOVENOUS Chronic Kidney Disease Stage 5 Glomerular Filtration Rate Less Than 15 (HCC) 07/16/2023 12:06 PM COMPUTER DISCOVERY TEACHER CREATION FISTULA BRACHIOCEPHALIC ARTERIOVENOUS Chronic Kidney Disease Stage 5 Glomerular Filtration Rate Less Than 15 (HCC) 07/16/2023 12:06 PM COMPUTER DISCOVERY TEACHER Scheduled Referrals Name Type Priority Associated Diagnoses Order Schedule Primary care hypertension nurse visit (clinic) Outpatient Referral Routine Expected: 08/05/2022 (Approximate), Expires: 10/30/2023 Family Medicine office visit (clinic) Outpatient Referral Routine Expect ed: 01/29/2023 (Approximate), Expires: 10/30/2023 documented as of this encounter Results * (ABNORMAL) Hemoglobin A1c (01/08/2023 12:27 PM CDT) Hemoglobin A1c, B 6.4(H) 4.2 - 5.6 % 01/08/2023 12:43 PM CDT CNFL Comment: Hemoglobin A1c values of 5.7-6.4 percent indicate an increased risk for developing diabetes mellitus. In diabetic patients, HbA1c goals should be discussed with healthcare provider. Blood (Blood, Venous) 01/08/2023 12:27 PM CDT 01/08/2023 12:28 PM CDT Allyn Ryan M.D. LAB BLOOD ADD-ON [facility] [id number] [address], [facility] in [address] [address] documented in this encounter Visit Diagnoses Diagnosis Diabetes Mellitus Type 2 With Diabetic Neuropathy (HCC)- Primary Diabetes Mellitus Type 2 With Diabetic Nephropathy (HCC) Hypertension And Chronic Kidney Disease Stage 5 (HCC) Dialysis Peritoneal Status (HCC) Hyperparathyroidism Renal Secondary (HCC) Hyperlipidemia Radiculopathy Lumbar Restless Leg Syndrome Annual Medicare Examination Return Chronic Kidney Disease Stage 5 Glomerular Filtration Rate Less Than 15 (HCC) documented in this encounter Additional Health Concerns Assessment Noted Time PHQ-9 Depression Total Score: 5 06/25/19 16 1:22 PM COMPUTER DISCOVERY TEACHER documented as of this encounter Care Teams Cryolite Recovery Operator Relationship Specialty Start Date End Date Allyn Alfredo M.D. [address] [place] [phone] PCP - General Family Medicine 04/05/21 documented as of this encounter
--- OUTSIDE RECORDS SUMMARY | 2023-06-24 18:18 | XMS_ITS | Encounter Summary ---
Author Name Unknown Organization [facility] Address [address] [place] [address] Care Team Providers Care Music Historian Name Role Phone Allyn Alfredo M.D. Primary Care Pro vider Encounter Details Date Type Department Care Team (Late st Contact Info) Description 07/21/2022 Orders Only Division of Nephrology and Hypertension in [place], [place] [address] [place] [phone] Wilfrid Lincoln Jr., D.O. [address] [place] [phone] Diabetes Mellitus Type 2 With Diabetic Neuropathy Hyperglycemic (HCC) (Primary Dx); Chronic Kidney Disease Stage 5 Glomerular Filtration Rate Less Than 15 (HCC) Social History Tobacco Use Types Packs/Day [...] often do you attend chur ch or voodoo services? 1 to 4 times per year 03/19/2022 Do you belong to any clubs o r organizations such as hinduism groups, unions, fraternal or athletic groups, or [...] Answer Date Recorded PHQ-2 Score 0 09/23/2021 [facility]ational [facility] Questionnaire [...] slept in a long-term (including now)? No 03/19/2022 Nutrition Answer Date [...] Sex Assigned at Female 03/27/2017 3:30 PM DUCK FARMER Gender Identity Female 03/27/2017 3:30 PM DUCK FARMER Sexual Orientation Straight 03/27/2017 3: 30 PM DUCK FARMER documented as of this encounter Plan of Treatment Upcoming Encounters Date Type Department Care Team (Latest Contact Info) Description 07/09/2023 8:20 AM DUCK FARMER Appointment Department of Laboratory Medicine in [address] [phone] Allyn Alfredo M.D. [address] [place] [phone] 07/09/2023 9:15 AM DUCK FARMER Office Visit Department of Family Medicine, [facility], in [address] [phone] Allyn Alfredo M.D. [address] [place] [phone] 07/16/2023 12:06 PM DUCK FARMER Hospital Encounter Post Anesthesia Care Unit in [address] [phone] Cristhian Grant M.B., Ch.B., Ph.D. [address] [place] [phone] 07/16/2023 12:06 PM DUCK FARMER - 07/16/2023 3:35 PM DUCK FARMER Surgery [facility] OR [facility] [place] [phone] Cristhian Grant M.B., Ch.B., Ph.D. [address] [place] [phone] CREATION FISTULA RADIOCEPHALIC ARTERIOVENOUS 07/20/2023 11:00 AM CDT Office Visit Department of Orthopedic Surgery in [address] [phone] Cindy Walker D.P.M. [address] [place] [phone] Discharge Disposition: Home or Self Care 08/25/2023 3:15 PM CDT Telemedicine Department of Sleep Medicine in [place], [place] [address] [place] [phone] Emilee Emanuel APRN, C.N.P., D.N.P., M.S.N. [address] [place] [phone] Scheduled Procedures Name Priority Associated Diagnoses Date/Ti me CREATION FISTULA RADIOCEPHALIC ARTERIOVENOUS Chronic Kidney Disease Stage 5 Glomerular Filtration Rate Less Than 15 (HCC) 07/16/2023 12:06 PM DUCK FARMER CREATION FISTULA BRACHIOCEPHALIC ARTERIOVENOUS Chronic Kidney Disease Stage 5 Glomerular Filtration Rate Less Than 15 (HCC) 07/16/2023 12:06 PM DUCK FARMER documented as of this encounter Visit Diagnoses Diagnosis Diabetes Mellitus Type 2 With Diabetic Neuropathy Hyperglycemic (HCC)- Primary Chronic Kidney Disease Stage 5 Glomerular Filtration Rate Less Than 15 (HCC) Chronic Kidney Disease Stage 5 Glomerular Filtration Rate Less Than 15 (HCC) documented in this encounter Additional Health Concerns Assessment Noted Time PHQ-9 Depression Total Score: 5 06/25/19 16 1:22 PM DUCK FARMER documented as of this encounter Care Teams Music Historian Relationship Specialty Start Date End Date Allyn Alfredo M.D. [address] [phone] PCP - General Family Medicine 04/05/21 documented as of this encounter
--- OUTSIDE RECORDS SUMMARY | 2023-06-24 18:18 | XMS_ITS | Encounter Summary ---
Author Name Unknown Organization [facility] Address [address] [place] [address] Care Team Providers Care Installation Service Representative Name Role Phone Allyn Alfredo M.D. Primary Care Pro vider Reason for Referral * Outpatient (Routine) - Closed Specialty Diagnoses / Procedures Referred By Esther zamorano Referred To Contact Orthopedic Surgery Diagnoses Diabetes Mellitus Type 2 With Diabetic Neuropathy Hyperglycemic (HCC) Onychomycosis Pain Limb Generalized Diabetes Mellitus Type 2 With Diabetic Nephropathy (HCC) Cindy Walker D.P.M. [address] [place] [phone] [facility] Region Referral ID Status Reason Start Date Expiration Date Visits Re quested Visits Authorized [id number] Closed 09/15/2022 09/14/2025 1 1 Reason for Visit * Reason Comments Nail Problem Here for nail care Nail Problem * Outpatient (Routine) - Closed Specialty Diagnoses / Procedures Referred By Esther zamorano Referred To Contact Orthopedic Surgery Diagnoses Diabetes Mellitus Type 2 With Diabetic Neuropathy Hyperglycemic (HCC) Onychomycosis Pain Limb Generalized Diabetes Mellitus Type 2 With Diabetic Nephropathy (HCC) Cindy Walker D.P.M. [address] [phone] [facility] Region Referral ID Status Reason Start Date Expiration Date Visits Re quested Visits Authorized [id number] Closed 06/16/2022 06/15/2025 1 1 Encounter Details Date Type Department Care Team (Latest Contact Info) Description 09/15/2022 11:15 AM CDT Office Visit Department of Orthopedic Surgery in [address] [phone] Cindy Walker D.PAv [address] [place] [phone] Diabetes Mellitus Type 2 With Diabetic Neuropathy [...] week 09/11/2022 How often do you attend [facility] or jainism services? 1 to 4 times per year 09/11/2022 Do you belong to any clubs o r organizations such as taoist groups, unions, fraternal or athletic groups, or [...] PHQ-2 Score 0 07/25/2022 [facility] of Occupat ional [facility] - Occupational Stress Questionnaire Answer Date [...] Sex Assigned at Female 03/27/2017 3:30 PM SOLAR PROJECT COORDINATION SPECIALIST Gender Identity Female 03/27/2017 3:30 PM SOLAR PROJECT COORDINATION SPECIALIST Sexual Orientation Straight 03/27/2017 3: 30 PM SOLAR PROJECT COORDINATION SPECIALIST documented as of this encounter Last Filed Vital Signs Vital Sign Reading Time Taken Comments Blood Pressure 148/61 09/15/2022 11:10 AM CDT Pulse - - Temperature - - Respiratory Rate - - Oxygen Saturation - - Inhaled Oxygen Concentration - - Weight - - Height - - Body Mass Index - - documented in this encounter Progress Notes * Cindy Walker D.PLeidaMLeida - 09/15/2022 11:15 AM CDT SUBJECTIVE CHIEF COMPLAINT / REASON FOR VISIT Chief Complaint Patient presents with Left Foot - Nail Problem Here for nail care Right Foot - Nail Problem HISTORY OF PRESENT ILLNESS Concetta Medina is a 76 y.o. female seen for necessary foot care and complaint of painful thickened nails bilaterally. OBJECTIVE VITAL SIGNS Vitals: 09/15/22 1110 BP: 148/61 PHYSICAL EXAMINATION DP and PT pulses nonpalpable [...] (Latest Contact Info) Description 07/09/2023 8:20 AM SOLAR PROJECT COORDINATION SPECIALIST Appointment Department of Laboratory Medicine in [address] [phone] Allyn Alfredo M.D. [address] [place] [phone] 07/09/2023 9:15 AM SOLAR PROJECT COORDINATION SPECIALIST Office Visit Department of Family Medicine, [facility], in [address] [phone] Allyn Alfredo M.D. [address] [place] [phone] 07/16/2023 12:06 PM SOLAR PROJECT COORDINATION SPECIALIST Hospital Encounter Post Anesthesia Care Unit in [address] [phone] Cristhian Grant M.B., Ch.B., Ph.D. [address] [place] [phone] 07/16/2023 12:06 PM SOLAR PROJECT COORDINATION SPECIALIST - 07/16/2023 3:35 PM SOLAR PROJECT COORDINATION SPECIALIST Surgery [facility] OR [address] [place] [phone] Cristhian Grant M.B., Ch.B., Ph.D. [address] [place] [phone] CREATION FISTULA RADIOCEPHALIC ARTERIOVENOUS 07/20/2023 11:00 AM CDT Office Visit Department of Orthopedic Surgery in [address] [phone] Cindy Walker, ChristinePLeidaMLeida [address] [place] [phone] Discharge Disposition: Home or Self Care 08/25/2023 3:15 PM CDT Telemedicine Department of Sleep Medicine in [place], [place] [address] [place] [phone] Emilee Emanuel APRN, C.N.P., D.N.P., M.S.N. [address] [phone] Scheduled Procedures Name Priority Associated Diagnoses Date/Ti me CREATION FISTULA RADIOCEPHALIC ARTERIOVENOUS Chronic Kidney Disease Stage 5 Glomerular Filtration Rate Less Than 15 (HCC) 07/16/2023 12:06 PM SOLAR PROJECT COORDINATION SPECIALIST CREATION FISTULA BRACHIOCEPHALIC ARTERIOVENOUS Chronic Kidney Disease Stage 5 Glomerular Filtration Rate Less Than 15 (HCC) 07/16/2023 12:06 PM SOLAR PROJECT COORDINATION SPECIALIST Scheduled Referrals Name Type Priority Associated Diagnoses Orde r Schedule Orthopedic Surgery office visit (clinic) Outpatient Referral Routine Diabetes Mellitus Type 2 With Diabetic Neuropathy Hyperglycemic (HCC) Onychomycosis Pain Limb Generalized Diabetes Mellitus Type 2 With Diabetic Nephropathy (HCC) Expected: 12/16/2022 (Approximate), Expires: 12/17/2023 documented as of this encounter Visit Diagnoses Diagnosis Diabetes Mellitus Type 2 With Diabetic Neuropathy Hyperglycemic (HCC) Onychomycosis Pain Limb Generalized Diabetes Mellitus Type 2 With Diabetic Nephropathy (HCC) Chronic Kidney Disease Stage 5 Glomerular Filtration Rate Less Than 15 (HCC) documented in this encounter Additional Health Concerns Assessment Noted Time PHQ-9 Depression Total Score: 5 06/25/19 16 1:22 PM SOLAR PROJECT COORDINATION SPECIALIST documented as of this encounter Care Teams Installation Service Representative Relationship Specialty Start Date End Date Allyn Alfredo M.D. [address] [phone] PCP - General Family Medicine 04/05/21 documented as of this encounter
--- OUTSIDE RECORDS SUMMARY | 2023-06-24 18:18 | XMS_ITS | Clinical Summary ---
Author Name Unknown Organization [facility] Address [address] [place] [address] Care Team Providers Care Inventory Planner Name Role Phone Gavi Tong Unavailable Allyn Alfredo MD Primary Care Provi kristen Allergies Active Allergy Reactions Criticality Noted Date Comments Atorvastatin 01/24/2019 Didn't feel good on it Clonidine 01/24/2019 [place] like BP was not controlled Penicillins 01/24/2019 [...] Bedtime 0 Active ferrous fumarate 65 mg, ewiiaapaayp. FE,-Vitamin C 125 mg (VITRON C) 65-125 [...] Influenza (High Dose) 3 valent vaccine 9 Family History Medical History Relation Comments Diabetes Mother decesed Anesthesia Reaction No family hx of Blood Disease No family hx of Relation Status Comments Mother Social History Tobacco Use Types Packs/Day Years [...] on file Medical Devices Implanted Type Area Senior Pensions Administrator Device Identifier Shelf Expiration Date Model / Serial / Lot 5.5 X 45mm Curved Basil Implanted:Qty: 1 on 02/04/2019 by Vipul Doyle MD at [facility] N/A: Spine Lumbar [employer] [id number] / / [id number] Advance Directives For more information, please contact: [phone] Documents on File Type Date Recorded Patient Zipper Cutter Expl anation Advance Directives and Living Will [...] Agents on File Name Relationship Healthcare Agent [facility] p Fili Garcia Carolann Medina Daughter Health Care Agent Femi PLeida Carol First Alternate Health Care Agent Care Teams Inventory Planner Relationship Specialty Start Date End Date Gavi Tong PCP - Audiology 06/13/09 Allyn Alfredo MD PCP - General Family Practice 01/24/19
--- OUTSIDE RECORDS SUMMARY | 2023-06-24 18:18 | XMS_ITS | Encounter Summary ---
Author Name Unknown Organization [facility] Address [address] [place] [address] Care Team Providers Care Baby Doctor Name Role Phone Allyn Alfredo M.D. Primary Care Pro vider Reason for Visit * Outpatient (Routine) - Closed Specialty Diagnoses / Procedures Referred By Esther zamorano Referred To Contact Ophthalmology Meme Drake M.D., M.S. [address] [place] [phone] [facility] Referral ID Status Reason Start Date Expiration Date Visits Re quested Visits Authorized [id number] Closed 06/03/2022 06/02/2025 1 1 Encounter Details Date Type Department Care Team (Latest Contact Info) Description 08/12/2022 2:00 PM CDT Office Visit Department of Ophthalmology in [place], [place] [address] [place] [phone] Meme Drake M.D., M.S. [address] [place] [phone] Hemorrhage Vitreous Left (HCC) (Primary Dx); Diabetes Mellitus Type 2 With Diabetic Neuropathy (HCC) Social History Tobacco Use Types Packs/Day [...] week 03/19/2022 How often do you attend [facility] or lutheran services? 1 to 4 times per year 03/19/2022 Do you belong to any clubs o r organizations such as restoration groups, unions, fraternal or athletic groups, or [...] Answer Date Recorded PHQ-2 Score 0 07/25/2022 [facility] - Occupational Stress [...] slept in a chcf (including now)? No 03/19/2022 Nutrition Answer Date [...] Assigned at Female 03/27/2017 3:30 PM SENIOR PRIVATE CLIENT ADVISOR Gender Identity Female 03/27/2017 3:30 PM SENIOR PRIVATE CLIENT ADVISOR Sexual Orientation Straight 03/27/2017 3: 30 PM SENIOR PRIVATE CLIENT ADVISOR documented as of this encounter Progress Notes * Meme Drake M.D., M.S. - 08/12/2022 2:00 PM CDT ASSESSMENT/PLAN #Vitreous hemorrhage, left eye #History of retinal tear status post laser retinopexy 03/2022 No evidence of new tear or detachment on exam and B-scan today. Heme could be secondary to tractionon already lasered tear at 1:00 as the hyaloid face appears attached over the tear flap. There is no evidence of diabetic eye disease in the contralateral eye, so have a lower suspicion for this coming from PDR. Impression 08/12/2022: Vitreous heme nearly entirely cleared and vision is markedly improved at 20/25. No new tears or breaks. Previous laser appears confluent. Only symptom is a floater in the left eye when lying on her right side and reading in bed. Plan: - RTC PRN. Continue annual eye exams. - Patient extensively counseled regarding symptoms of retinal detachment including shower of new floaters, new/increased flashing lights, or curtain coming over the vision. Patient will call immediately with any of these. Meme Drake M.D., M.S. PGY-2 Resident documented in this encounter Plan of Treatment Upcoming Encounters Date Type Department Care Team (Latest Contact Info) Description 07/09/2023 8:20 AM SENIOR PRIVATE CLIENT ADVISOR Appointment Department of Laboratory Medicine in [address] [phone] Allyn Alfredo M.D. [address] [place] [phone] 07/09/2023 9:15 AM SENIOR PRIVATE CLIENT ADVISOR Office Visit Department of Family Medicine, [facility], in [address] [phone] Allyn Alfredo M.D. [address] [place] [phone] 07/16/2023 12:06 PM SENIOR PRIVATE CLIENT ADVISOR Hospital Encounter Post Anesthesia Care Unit in [place] [phone] [place] [phone] Cristhian Grant M.B., Ch.B., Ph.D. [address] [place] [phone] 07/16/2023 12:06 PM SENIOR PRIVATE CLIENT ADVISOR - 07/16/2023 3:35 PM SENIOR PRIVATE CLIENT ADVISOR Surgery [facility] OR [address] [place] [phone] Cristhian Grant M.B., Ch.B., Ph.D. [address] [place] [phone] CREATION FISTULA RADIOCEPHALIC ARTERIOVENOUS 07/20/2023 11:00 AM CDT Office Visit Department of Orthopedic Surgery in [address] [phone] Cindy Walker D.PAv [address] [place] [phone] Discharge Disposition: Home or Self Care 08/25/2023 3:15 PM CDT Telemedicine Department of Sleep Medicine in [place], [place] [address], [place] [phone] Emilee Emanuel APRN, C.N.P., D.N.P., M.S.N. [address], [place] [phone] Scheduled Procedures Name Priority Associated Diagnoses Date/Ti me CREATION FISTULA RADIOCEPHALIC ARTERIOVENOUS Chronic Kidney Disease Stage 5 Glomerular Filtration Rate Less Than 15 (HCC) 07/16/2023 12:06 PM SENIOR PRIVATE CLIENT ADVISOR CREATION FISTULA BRACHIOCEPHALIC ARTERIOVENOUS Chronic Kidney Disease Stage 5 Glomerular Filtration Rate Less Than 15 (HCC) 07/16/2023 12:06 PM SENIOR PRIVATE CLIENT ADVISOR documented as of this encounter Visit Diagnoses Diagnosis Hemorrhage Vitreous Left (HCC)- Primary Diabetes Mellitus Type 2 With Diabetic Neuropathy (HCC) Chronic Kidney Disease Stage 5 Glomerular Filtration Rate Less Than 15 (HCC) documented in this encounter Additional Health Concerns Assessment Noted Time PHQ-9 Depression Total Score: 5 06/25/19 16 1:22 PM SENIOR PRIVATE CLIENT ADVISOR documented as of this encounter Care Teams Baby Doctor Relationship Specialty Start Date End Date Allyn Alfredo M.D. NPBoston: [phone] [id number] [phone] PCP - General Family Medicine 04/05/21 documented as of this encounter
--- OUTSIDE RECORDS SUMMARY | 2023-06-24 18:18 | XMS_ITS | Encounter Summary ---
Author Name Unknown Organization [facility] Address [address] [place] [address] Care Team Providers Care Baby Sitter Name Role Phone Allyn Alfredo M.D. Primary Care Pro vider Reason for Visit * Appointment Request (Routine) - Closed Specialty Diagnoses / Procedures Referred By Esther t Referred To Contact Physical Therapy Diagnoses Pain Low Back Unspecified [place], PEvangelista-CLeida [address] [facility] [address] , [address] [place] [address] Referral ID Status Reason Start Date Expiration Date Visits Re quested Visits Authorized [id number] Closed 06/09/2022 06/09/2023 1 1 Encounter Details Date Type Department Care Team (Latest Contact Info) Description 08/13/2022 12:15 PM CDT Comprehensive Visit Department of Rehabilitation Services in [address] [phone] Allyn Alfredo M.D. [address] [place] [phone] Teo Bangura PLeidaTLeida [address] [place] [phone] Stenosis Spinal Lumbar With Neurogenic Claudication (Primary Dx) Social History Tobacco Use Types [...] How often do you attend chur or rastafarian services? 1 to 4 times per year 03/19/2022 Do you belong to any clubs o r organizations such as holiness groups, unions, fraternal or athletic groups, or [...] Answer Date Recorded PHQ-2 Score 0 07/25/2022 [facility] of Occupat ional [facility] - Occupational Stress [...] slept in a fdc (including now)? No 03/19/2022 Nutrition Answer Date [...] Sex Assigned at Female 03/27/2017 3:30 PM DANCE THERAPIST Gender Identity Female 03/27/2017 3:30 PM DANCE THERAPIST Sexual Orientation Straight 03/27/2017 3: 30 PM DANCE THERAPIST documented as of this encounter Consult Notes * Teo Bangura, P.T. - 08/13/2022 12:15 PM CDT Physical Therapy Outpatient Evaluation/Treatment SUBJECTIVE Patient's Name: Concetta Medina Referring Provider: [place] Woods P.A.-C. Visit Diagnosis: 1. Stenosis Spinal Lumbar With Neurogenic Claudication Reason for Referral: Low back pain with some radicular type symptoms into the right hip/sciatic region Payor: MEDICARE / Plan: MEDICARE A AND B / Product Type: Medicare / [employer] Visit Count: 1 PERTINENT MEDICAL / SURGICAL HISTORY: Patient Active Problem List Diagnosis Cancer Breast Personal History Diabetes Mellitus Type 2 With Diabetic Nephropathy (HCC) Chronic Kidney Disease Stage 5 Glomerular Filtration Rate Less Than 15 (HCC) Diabetes Mellitus Type 2 With Diabetic Neuropathy Hyperglycemic (HCC) Anemia Of Chronic Renal Failure Carpal Tunnel Syndrome Restless Leg Syndrome Mononeuritis Meniere's Disease Hyperlipidemia Gout Acute Chronic Kidney Disease Stage 5 Glomerular Filtration Rate Less Than 15 (HCC) Hypertension And Chronic Kidney Disease Stage 5 (HCC) Apnea Sleep Obstructive Periodic Limb Movement Disorder Smoking Tobacco Use Personal History Cataract Senile Nuclear Sclerosis Right Anemia Of Chronic Renal Disease Radiculopathy Lumbar Pain Low Back Unspecified Osteodystrophy Renal Urinary Tract Infection Site Not Specified Hyperparathyroidism Renal Secondary (HCC) Hypokalemia Hypoglycemia Hyperkalemia Dialysis Peritoneal Status (HCC) Past Surgical History: Procedure Laterality Date EXTRACTION CATARACT WITH INSERTION INTRAOCULAR LENS Right 10/26/2017 Procedure: EXTRACTION CATARACT WITH INSERTION INTRAOCULAR LENS, right eye; Surgeon: Lalo Carroll M.D.; Location: [facility] OR EXTRACTION CATARACT WITH INSERTION INTRAOCULAR LENS Left 11/09/2017 Procedure: EXTRACTION CATARACT WITH INSERTION INTRAOCULAR LENS, left eye; Surgeon: Ayleen Carroll M.D.; Location: [facility] OR HYSTERECTOMY 1988 also removed ovaries LAPAROSCOPIC INSERTION DIALYSIS CATHETER PERITONEAL N/A 03/16/2020 Procedure: LAPAROSCOPIC INSERTION DIALYSIS CATHETER PERITONEAL., Omentopexy; Surgeon: Christine Warren Jr., M.D.; Location: [facility] OR TONSILLECTOMY N/A 1951 Tonsillectomy History of Present Illness:Patient has been treated for this in the past. She most recently had an injection in her lumbar spine hoping for some relief This is a 68-year-old female who comes into therapy secondary to discomfort she has been having in her low back. She has had occasional radicular symptoms into the sciatic region and into the posterior aspect of the right hip. She most recently had an injection into the lumbar spine. She feels thatthis may have eliminated the pain she is experiencing in her hip. However, she continues to have some pain in her back. Her biggest issue is difficulty with prolonged sitting/standing. She has tried therapy in the past which has given her some relief. They feel they want to have her follow up with further therapies once again. If she does not experience any relief, they may consider another inject ion in the lumbar spine. Patient goals: OBJECTIVE REVIEW OF SYSTEMS PHYSICAL EXAM Pain: Pain Assessment Pain Score: 4 Ortho Exam Upon observation, patient ambulates into therapy independently without an assistive device. Per patient's subjective, she does not experience a lot of pain in posterolateral aspect of her hip any longer. She does continue to have some pain in the lumbar spine especially with prolonged standing/sitting. Reflexes appear to be symmetrical bilaterally. Sensory is intact. TREATMENT Treatment today consisted of: Treated today with trial intermittent pelvic traction. This seemed to help previously. This did notexceed 105 lb. This cycled on for 60 seconds and off for 5 seconds. We then instructed patient withpelvic stabilization exercises consisting of posterior pelvic tilts along with leg raises while maintaining proper stability of the lumbar spine. We also instructed with bird dog exercises along withsome shallow squats. We gave her a strap that she could utilize for neural flossing and stretching of the hamstrings bilaterally. Assessment Clinical Impression: Patient presents to physical therapy with signs and symptoms consistent with possible stenosis of the lumbar spine. Impairments: Pain in the low back/sciatic region Functional deficits: Difficulty with prolonged sitting/standing. Rehab Potential: Patient has Fair potential to achieve established physical therapy goals within the time frame outlined below, provided active participation in the physical therapy treatment plan and home program. Personal Factors: Age Clinical Presentation: Stable Examination elements: 1-2 Clinical Decision Making: Low complexity clinical decision making Functional Goals and Timeframes: PT Outpatient Goals PT Goal #1: Patient is independent with home exercise program which will address core strengtheningas well as mobility of the lumbar spine. This was initiated today. PT Goal #1 Date: 08/13/22 PT Goal #2: Hopefully, long-term goal is to relieve her symptoms by at least 50% PT Goal #2 Date: 09/10/22 PT Goal #3: Patient is able to tolerate prolonged standing. This would be for 15 minutes or more. PT Goal #3 Date: 09/17/22 Plan Patient was educated regarding evaluative findings, diagnosis, prognosis, potential risks and benefits of rehabilitation interventions. A collaborative effort was used to establish goals and plan of care. The patient was informed of the right to make decisions regarding care, including refusal of examination or treatment or selection of services from another provider if desired. The treatment plan may be progressed or modified based upon the patient's response to treatment. Treatment Plan: Patient is going to work on these exercises independently at home. We would like to follow up with her in approximately 2-3 weeks to see how she is doing and progressive possible. Start of Plan of Care: 08/13/2022 Number of Visits:6 visits PT Duration: 45 days PT Frequency: PT Frequency: 1 time per week Treatment interventions may include: Treatment/Interventions: Therapeutic exercise, Manual therapy Plan for next session: Time Spent with Patient Evaluations PT Eval - Low Complexity: 25 min Therapeutic Interventions Therapeutic Exercise (min): 15 min Time Tracking Total Timed Units (min): 15 min Total Treatment Time (min): 40 min documented in this encounter Plan of Treatment Upcoming Encounters Date Type Department Care Team (Latest Contact Info) Description 07/09/2023 8:20 AM DANCE THERAPIST Appointment Department of Laboratory Medicine in [address] [phone] Allyn Alfredo M.D. [address] [place] [phone] 07/09/2023 9:15 AM DANCE THERAPIST Office Visit Department of Family Medicine, [facility], in [address] [phone] Allyn Alfredo M.D. [address] [place] [phone] 07/16/2023 12:06 PM DANCE THERAPIST Hospital Encounter Post Anesthesia Care Unit in [address] [phone] Cristhian Grant M.B., Ch.B., Ph.D. [address] [place] [phone] 07/16/2023 12:06 PM DANCE THERAPIST - 07/16/2023 3:35 PM DANCE THERAPIST Surgery [facility] OR [address] [place] [phone] Cristhian Grant M.B., Ch.B., Ph.D. [address] [place] [phone] CREATION FISTULA RADIOCEPHALIC ARTERIOVENOUS 07/20/2023 11:00 AM CDT Office Visit Department of Orthopedic Surgery in [address] [phone] Cindy Walker D.PLeidaMLeida [address] [place] [phone] Discharge Disposition: Home or Self Care 08/25/2023 3:15 PM CDT Telemedicine Department of Sleep Medicine in [place], [place] [address] [place] [phone] Emilee Emanuel APRN, C.N.P., D.N.P., M.S.N. [address] [phone] Scheduled Procedures Name Priority Associated Diagnoses Date/Ti me CREATION FISTULA RADIOCEPHALIC ARTERIOVENOUS Chronic Kidney Disease Stage 5 Glomerular Filtration Rate Less Than 15 (HCC) 07/16/2023 12:06 PM DANCE THERAPIST CREATION FISTULA BRACHIOCEPHALIC ARTERIOVENOUS Chronic Kidney Disease Stage 5 Glomerular Filtration Rate Less Than 15 (HCC) 07/16/2023 12:06 PM DANCE THERAPIST documented as of this encounter Visit Diagnoses Diagnosis Stenosis Spinal Lumbar With Neurogenic Claudication- Primary Chronic Kidney Disease Stage 5 Glomerular Filtration Rate Less Than 15 (HCC) documented in this encounter Additional Health Concerns Assessment Noted Time PHQ-9 Depression Total Score: 5 06/25/19 16 1:22 PM DANCE THERAPIST documented as of this encounter Care Teams Baby Sitter Relationship Specialty Start Date End Date Allyn Alfredo M.D. [phone] [place] [phone] PCP - General Family Medicine 04/05/21 documented as of this encounter
--- OUTSIDE RECORDS SUMMARY | 2023-06-24 18:19 | XMS_ITS | Patient Health Record ---
Author Name Unknown Organization [facility] Address [address] [place] [address] [address] [place] [address] Care Team Providers Care Cutter Aluminum Sheet Name Role Phone Allyn Alfredo Primary Care Provider U Jh Leiva Unavailable [phone] Rahel BILL CNP Shelby Unavailable Unavaila Jeffrey Davey Unavailable [phone] Jonathan Camacho Unavailable [phone] Collins Woods Unavailable [phone] Deshawn Casanova Unavailable [phone] Shawna Pulliam Unavailable [phone] Licha Moura Unavailable [phone] Marissa Reyes Unavailable [phone] Yancy Avila Unavailable [phone] ALLERGIES Allergen (clinical drug ingredient) Drug/Non Drug Allergy documented on EMR Reaction Allergy Type Onset Date Status atorvastatin Atorvastatin Unknown Drug Allergy A ctive clonidine Clonidine Unknown Drug Allergy Active oxycodone Oxycodone Unknown Drug Allergy Active Penicillin Unknown Drug Allergy Active RESULTS Component Value Reference Range Notes X ray : Lumbar Reviewed date:11/20/2022 10:46:41 PM Interpretation: Performing Lab: Notes/Report: Original Report EXAM: X-RAY LUMBAR SPINE 2-3 VIEWS CLINICAL INFORMATION: 77-year-old female with low back pain. COMPARISON: Lumbar spine MRI dated 05/22/2022. TECHNICAL INFORMATION: Recumbent lateral flexion and extension lumbar spine radiographs. 2 films submitted. INTERPRETATION: 61 degrees of lordosis between the L1 and S1 superior endplates in the recumbent extended position, decreasing to 43 degrees in recumbent flexion. No fracture, vertebral collapse, or destructive osseous lesion. L5-S1: Preserved disc height. No listhesis. L4-5: Dorsal decompression and vertical eyad/pedicle screw posterior fixation bilaterally without hardware fracture or gross evidence of loosening. No listhesis. L3-4: Moderate disc degeneration with mild ventral and dorsal endplate ridging. No listhesis. L2-3 and L1-2: Mild disc degeneration with mild ventral and dorsal endplate ridging. No listhesis. T12-L1: Preserved disc height. No listhesis. T11-12 and T10-11: Moderate gaseous disc degeneration. No listhesis. Extensive atherosclerotic calcifications of the abdominal aorta and iliac arteries. No change from 05/22/2022 allowing for differences in modality. CONCLUSION: 1. No listhesis or dynamic instability. 2. Disc degeneration which is moderate at T10-11, T11-12, and L3-4. Mild at L1-2 and L2-3. 3. No hardware complication at L4-5. 4. No fracture, vertebral collapse, or destructive osseous lesion. PDB Read by: Ethan Banegas M.D. Reviewed and Electronically Signed by: Ethan Banegas M.D. REASON FOR REFERRAL Reason Repeat L3-L4 ANDRÉS Diagnosis 1 Radiculopathy, lumba r region (M54.16) Referral Organization [facility] Referring Provider First Name Jonathan Referring Provider Last Name Doug Referring Provider Speciality Pain Medic ine Referred Organization [facility] Referred Provider Jonathan Camacho Referred Address [address] [place] [address],[facility] [address],[place], [place],[address], Referred Provider Specialty Pain Medicin e Referral Priority Routine Reason REHAB *[facility]/OCC MED Evaluate and treat low back pain. Please call pt to schedule at [phone] Diagnosis 1 Low back pain, unspe cified (M54.50) Referral Organization [facility] Referring Provider First Name Deshawn Referring Provider Last Name Edilberto Referring Provider Speciality Physician Manufacturing Leader Referred Provider Aki RehabilEamon escobar Referred Provider Specialty Rehabilitati on General Notes Hannah Kapadia 023 03:12:28 PM >[facility] no pa required ok to schedule, Roxann Pinzon 11/13/2022 05:07:32 PM >Assigned TE to Ref 1 to sched consult., LizabethRoxann reich 11/14/2022 11:44:06 AM >Assigned TE to Ref 1 to sched consult Referral Priority Routine Reason REHAB PT and OT: MED X LUMBAR Fusion phase 3 protocol. Diagnosis 1 Low back pain, unspe cified (M54.50) Diagnosis 2 Other intervertebral disc degeneration, lumbar region (M51.36) Diagnosis 3 Radiculopathy, lumba r region (M54.16) Diagnosis 4 Fusion of spine, lum bar region (M43.26) Diagnosis 5 Dorsalgia, unspecifi ed (M54.9) Diagnosis 6 Segmental and somati c dysfunction of lumbar region (M99.03) Referral Organization [facility] Referring Provider First Name Jh Referring Provider Last Name Nasir Referring Provider Speciality Occupation al Medicine Referred Organization [facility] Referred Provider Eamon Jules Referred Address [address] [facility],[place], [place],[address], Referred Provider Specialty Rehabilitati on General Notes Neo Ghotra 11/09 10:23:09 AM >[facility], no PA required. OK to schedule., Tanya Sanchez 12/01/2022 11:04:50 AM >Therapy is already scheduled. Referral Priority Routine Reason Please refer patient to [facility]. The phone number for [facility] is [phone]. Please evaluate and treat for ongoing low back pain. Please call the patient to schedule at [phone] Diagnosis 1 Low back pain, unspe cified (M54.50) Referral Organization [facility] Referring Provider First Name Deshawn Referring Provider Last Name Edilberto Referring Provider Speciality Physician Manufacturing Leader Referred Provider [facility] Referred Provider Specialty Physical The rapist General Notes Marva Barrow 023 12:12:59 PM >Please call the patient to schedule and fax back all notes to [phone]. If you need additional records for this referral, please call [phone]. Thanks! Referral Priority Routine MEDICATIONS Medication SIG (Take, Route, Frequency, Duration) Notes Start Date End Date Status amLODIPine Besylate 5 MG 1 tablet Orally Once a day Active Basaglar KwikPen 100 UNIT/ML as directed Subcutaneous Active Cozaar 50 MG 1 tablet Orally Once a day Active Allopurinol 100 MG 1 tablet Orally Once a day Active Torsemide 5 MG 1.5 tablets Orally BID Active Gabapentin 100 MG 1 capsule Orally Three times a day Active Pravastatin Sodium 40 MG 1 tablet Orally Once a day Active NovoLOG 100 UNIT/ML as directed Injection Active Fish Oil 1000 MG 1 capsule Orally Onc e a day Active Aspirin 81 81 MG 1 tablet Orally Once a day Active Dialyvite - 1 tablet Orally Once a day Active Calcium Acetate 667 MG 2 tablets with meals Orally Three times a day Active Acetaminophen-Codeine 300-30 MG 1/2-1 tablet as needed Orally(for severe pain) Once a day for 3 days Trial will est care NOV if helpful 02/12/2023 Active MiraLax Active Gentamicin Sulfate A ctive SOCIAL HISTORY Tobacco Use: Social History Observation Description Date Details (start date - stop date) Never Smoker NA - NA Sex Assigned At : Social History Observation Description Sex Assigned At Unknown Tobacco Use/Smoking: Question Answer Notes Are you a nonsmoker Alcohol Screen Question Answer Notes Did you have a drink containing alcohol in the p ast year? No Points 0 Interpretation Negative PROBLEMS Problem Type ICD Code Onset Dates Problem Status W/U Status Risk SNOMED Code Notes Problem Other chronic pain (G89.29) Active confirmed Chronic pain (92923243) Problem Fusion of spine, lumbar region (M43.26) Active confirmed Lumbar spinal fusion (procedure) (70896729) Problem Spondylosis without myelopathy or radiculopathy, lumbar region (M47.816) Active confirmed Lumbosacral spondylosis without myelopathy (89039479) Problem Other intervertebral disc degeneration, lumbar region (M51.36) Active confirmed Degeneration of lumbar intervertebral disc (07775312) Problem Radiculopathy, lumbar region (M54.16) Active confirmed Lumbar radiculopathy (423173453) Problem Dorsalgia, unspecified (M54.9) Active confirmed Backache (297496241) Problem Segmental and somatic dysfunction of lumbar region (M99.03) Active confirmed Somatic dysfunction of lumbar region (908211058) Problem Unsteadiness on feet (R26.81) Active confirmed Abnormal gait (98778123) Problem Postlaminectomy syndrome, not elsewhere classified (M96.1) Active confirmed Post-lami nectomy syndrome (27697946) Problem Low back pain, unspecified (M54.50) Active confirmed Low back pain (992778284) Problem Spinal stenosis of lumbar region with neurogenic claudication (M48.062) Active confirmed Neurogenic claudication (846855691) VITAL SIGNS Blood pressure diastolic 84 mm Hg 02/12/2023 Height 65 in 02/12/2023 Blood pressure systolic 132 mm Hg 02/12/2023 Weight 191 lbs 02/12/2023 BMI 31.78 kg/m2 02/12/2023 PROCEDURES Procedure Date Ordered Date Performed Result Body Sit e Intervention: 06/26/2022 06/27/2022 Order scheduled 06/26 Intervention: 09/24/2022 10/02/2022 sched 10/14 Encounters Encounter Location Date Provider Diagnosis [facility] [address] [place] [address] [address] [place] [address] 06/24/2022 Jonathan Camacho [address] [facility] [address] [place] [address] 06/26/2022 Jonathan Camacho Radiculopathy, lumba r region M54.16 [address] [facility] [address] [place] [address] 07/22/2022 Collins Bolick Spondylosis without myelopathy or radiculopathy, lumbar region M47.816 ; Postlaminectomy syndrome, not elsewhere classified M96.1 ; Low back pain, unspecified M54.50 and Other chronic pain G89.29 [address] [facility] [address] [place] [address] 09/24/2022 Collins Bolick Spondylosis without myelopathy or radiculopathy, lumbar region M47.816 ; Postlaminectomy syndrome, not elsewhere classified M96.1 ; Low back pain, unspecified M54.50 and Other chronic pain G89.29 [facility] [address] [place] [address] [address] [place] [address] 09/29/2022 Jonathan Camacho [facility] [address] [place] [address] [address] [place] [address] 10/13/2022 Jeffrey Rogers [address] [facility] [address] [place] [address] 10/14/2022 Jeffrey Rogers Radiculopathy, lumba r region M54.16 [address] [facility] [address] [place] [address] 11/13/2022 Deshawn Casanova Low back pain, unspecified M54.50 ; Other chronic pain G89.29 ; Spondylosis without myelopathy or radiculopathy, lumbar region M47.816 ; Postlaminectomy syndrome, not elsewhere classified M96.1 and Encounter for screening for osteoporosis Z13.820 [facility] [address] [place] [address] [address] [place] [address] 11/13/2022 Jonathan Camacho [facility] [address] [place] [address] [address] [place] [address] 11/14/2022 Jonathan Camacho [facility] [address] [place] [address] [address] [place] [address] 11/20/2022 Jonathan Camacho BV [facility] [address] [place] [address] 11/28/2022 Jh Best Low back pain, unspecified M54.50 ; Dorsalgia, unspecified M54.9 ; Radiculopathy, lumbar region M54.16 ; Fusion of spine, lumbar region M43.26 ; Other intervertebral disc degeneration, lumbar region M51.36 and Segmental and somatic dysfunction of lumbar region M99.03 BV [facility] [address] [place] [address] 12/05/2022 Shawna Pulliam Radiculopathy, lumba r region M54.16 and Low back pain, unspecified M54.50 BV [facility] [address] [place] [address] 12/09/2022 Marissa Reyes Radiculopathy, lumba r region M54.16 and Low back pain, unspecified M54.50 [facility] [address] [place] [address] 12/11/2022 Marissa Reyes Radiculopathy, lumba r region M54.16 and Low back pain, unspecified M54.50 [address] [facility] [address] [place] [address] 12/11/2022 Deshawn Casanova Other chronic pain G89.29 ; Spinal stenosis of lumbar region with neurogenic claudication M48.062 ; Postlaminectomy syndrome, not elsewhere classified M96.1 and Encounter for screening for osteoporosis Z13.820 [facility] [address] [place] [address] 12/15/2022 Licha Dauner Radiculopathy, lumba r region M54.16 and Low back pain, unspecified M54.50 BV [facility] [address] [place] [address] 12/18/2022 Licha Dauner Radiculopathy, lumba r region M54.16 and Low back pain, unspecified M54.50 BV [facility] [address] [place] [address] 12/23/2022 Marissa Reyes Radiculopathy, lumba r region M54.16 and Low back pain, unspecified M54.50 BV [facility] [address] [place] [address] 12/25/2022 Licha Dauner Radiculopathy, lumba r region M54.16 and Low back pain, unspecified M54.50 [facility] [address] [place] [address] 12/29/2022 Marissa Reyes Radiculopathy, lumba r region M54.16 and Low back pain, unspecified M54.50 BV [facility] [address] [place] [address] 01/02/2023 Marissa Reyes Radiculopathy, lumba r region M54.16 and Low back pain, unspecified M54.50 BV [facility] [address] [place] [address] 01/02/2023 Jh Best Low back pain, unspecified M54.50 ; Dorsalgia, unspecified M54.9 ; Unsteadiness on feet R26.81 ; Radiculopathy, lumbar region M54.16 ; Fusion of spine, lumbar region M43.26 ; Other intervertebral disc degeneration, lumbar region M51.36 and Segmental and somatic dysfunction of lumbar region M99.03 BV [facility] [address] [place] [address] 01/21/2023 Jh Best [facility] [address] [place] [address] 01/21/2023 Licha Moura Radiculopathy, lumba r region M54.16 and Low back pain, unspecified M54.50 BV [facility] [address] [place] [address] 01/23/2023 Marissa Reyes Radiculopathy, lumba r region M54.16 and Low back pain, unspecified M54.50 BV [facility] [address] [place] [address] 01/26/2023 Marissa Reyes Radiculopathy, lumba r region M54.16 and Low back pain, unspecified M54.50 BV [facility] [address] [place] [address] 01/30/2023 Marissa Reyes Radiculopathy, lumba r region M54.16 and Low back pain, unspecified M54.50 BV [facility] [address] [place] [address] 02/02/2023 Yancy Avila [facility] [address] [place] [address] 02/05/2023 Jh Best [facility] [address] [place] [address] 02/05/2023 Licha Moura [facility] [address] [facility] [address] [place] [address] 02/12/2023 Deshawn Casanova Other chronic pain G89.29 ; Spinal stenosis of lumbar region with neurogenic claudication M48.062 ; Postlaminectomy syndrome, not elsewhere classified M96.1 ; Encounter for screening for osteoporosis Z13.820 and Low back pain, unspecified M54.50 [facility] [address] [place] [address] [address] [place] [address] 02/12/2023 Deshawn Casanova MAEGAN [address] [facility] [address] [facility] [address] [place] [address] 03/13/2023 Deshawn Casanova ASSESSMENTS Encounter Date Diagnosis Assessment Notes Treatment Notes Treatment Clinical Notes 06/26/2022 Radiculopathy, lumbar region (ICD-10 - M54.16) 07/22/2022 Spondylosis without myelopathy or radiculopathy, lumbar region (ICD-10 - M47.816) 10/14/2022 Radiculopathy, lumbar region (ICD-10 - M54.16) 11/13/2022 Other chronic pain (ICD-10 - G89.29) Concetta returns to clinic today for a follow up evaluation regarding her chronic low back pain. I have reviewed the [facility] [place] database and did not find any inconsistencies. We discussed her current symptoms and medications. I have referred her to [facility] for a PM&R consult prior to starting lumbar MedX. I have ordered a lumbar flexion/extension xray and bone density scan at [facility] for further evaluation of her low back pain prior to the Vertiflex procedure. I will consider the Vertiflex procedure at L2-3, L3-4 pending her imaging results. I will continue with a treatment plan consisting of conservative therapy at this time. This treatment plan was reviewed with Concetta, and she was agreeable. I will continue to monitor her progress and she will follow up in one month or sooner if needed. Plan:1. Refer to [facility] for PM&R consult2. Order lumbar flexion/extension xray and bone density scan3. Consider Vertiflex at L2-3, L3-44. Follow up in one month Discharge instructions reviewed verbally. The patient was instructed to return to the office as scheduled and call with any questions, problems or concerns. 09/24/2022 Spondylosis without myelopathy or radiculopathy, lumbar region (ICD-10 - M47.816) 11/13/2022 Low back pain, unspecified (ICD-10 - M54.50) 11/28/2022 Dorsalgia, unspecified (ICD-10 - M54.9) 11/28/2022 Low back pain, unspecified (ICD-10 - M54.50) 12/05/2022 Radiculopathy, lumbar region (ICD-10 - M54.16) 12/05/2022 Low back pain, unspecified (ICD-10 - M54.50) 12/09/2022 Radiculopathy, lumbar region (ICD-10 - M54.16) 12/09/2022 Low back pain, unspecified (ICD-10 - M54.50) 12/11/2022 Radiculopathy, lumbar region (ICD-10 - M54.16) 12/11/2022 Low back pain, unspecified (ICD-10 - M54.50) 12/11/2022 Other chronic pain (ICD-10 - G89.29) Concetta is a pleasant 77 year old female who returns to clinic today for follow up for her chronic low back pain (R>L). I have reviewed the [facility] [place] database and did not find any inconsistencies. We discussed her current symptoms and medications. I will continue with a treatment plan consisting of conservative therapy at this time. The patient recently started the MedX program at [facility]. She is hopeful that with some more time, she may see improvements, and I am in agreement. She will hold off on procedures for the time being while continuing with therapy. I reviewed her lumbar flexion/extension x-rays and DEXA; see the impression. There is no dynamic instability in the lumbar spine and her bone density is normal. She is a candidate for Vertiflex at L2-L3 should her symptoms persist despite completing therapy. We had considered Vertiflex at L3-L4 as well, but after review of her imaging with Dr. Rogers today, there is no pedicle at L3-L4 therefore it would not be possible at this level. This treatment plan was reviewed with Concetta, and she was agreeable. I will continue to monitor her progress and she will follow up as needed. Plan:1. Continue MedX at [facility]. Reviewed lumbar x-rays and DEXA3. Consider Vertiflex at L2-L34. Follow up as needed Discharge instructions reviewed verbally. The patient was instructed to return to the office as scheduled and call with any questions, problems or concerns. X-rays lumbar spine flexion/extension 11/19/2022:CONCLU CHIO:1. No listhesis or dynamic instability.2. Disc degeneration which is moderate at T10-11, T11-12, and L3-4. Mild at L1-2 and L2-3.3. No hardware complication at L4-5.4. No fracture, vertebral collapse, or destructive osseous lesion. 12/11/2022 Spinal stenosis of lumbar region with neurogenic claudication (ICD-10 - M48.062) 12/15/2022 Radiculopathy, lumbar region (ICD-10 - M54.16) 12/15/2022 Low back pain, unspecified (ICD-10 - M54.50) 12/18/2022 Radiculopathy, lumbar region (ICD-10 - M54.16) 12/18/2022 Low back pain, unspecified (ICD-10 - M54.50) 12/23/2022 Radiculopathy, lumbar region (ICD-10 - M54.16) 12/23/2022 Low back pain, unspecified (ICD-10 - M54.50) 12/25/2022 Radiculopathy, lumbar region (ICD-10 - M54.16) 12/25/2022 Low back pain, unspecified (ICD-10 - M54.50) 12/29/2022 Radiculopathy, lumbar region (ICD-10 - M54.16) 12/29/2022 Low back pain, unspecified (ICD-10 - M54.50) 01/02/2023 Radiculopathy, lumbar region (ICD-10 - M54.16) 01/02/2023 Low back pain, unspecified (ICD-10 - M54.50) 01/02/2023 Dorsalgia, unspecified (ICD-10 - M54.9) 01/02/2023 Low back pain, unspecified (ICD-10 - M54.50) 01/21/2023 Radiculopathy, lumbar region (ICD-10 - M54.16) 01/23/2023 Radiculopathy, lumbar region (ICD-10 - M54.16) 01/23/2023 Low back pain, unspecified (ICD-10 - M54.50) 01/26/2023 Radiculopathy, lumbar region (ICD-10 - M54.16) 01/26/2023 Low back pain, unspecified (ICD-10 - M54.50) 01/30/2023 Radiculopathy, lumbar region (ICD-10 - M54.16) 01/30/2023 Low back pain, unspecified (ICD-10 - M54.50) 02/12/2023 Other chronic pain (ICD-10 - G89.29) Concetta is a pleasant 77 year old female who returns to clinic today for follow up for her chronic low back pain (R>L). I have reviewed the [facility] [place] database and did not find any inconsistencies. We discussed her current symptoms and medications. I will continue with a treatment plan consisting of conservative therapy at this time. Regarding conservative interventions, I am recommending that Concetta continue with her [facility] at home exercise program at this time, since she was noticing increased function when participating in therapy. I am also referring Concetta to [facility], which is an in-home therapy program so that she can continue to work with a therapist without driving to a clinic. I discussed two interventions with Concetta today in clinic as well. I discussed an L2-L3 vertiflex procedure with her. I informed her that it is not possible to complete this procedure at the L3-L4 level due to the lack of a peduncle at the L4 level from her fusion surgeries. I informed her of the risks of this procedure and noted that this may not provide her full relief of her symptoms since she has neurogenic at L3-L4 as well as L2-L3 and we cannot treat this level. I also discussed a spinal cord stimulator with Concetta. I informed her that this device interferes with the painful symptoms going to the brain, reducing the pain signals received by your brain. I informed her that this would not fix the structural issues in her spine, but could improve her quality of life. I also informed her that to complete this procedure there is a one-week trial. She would also need a thoracic MRI to ensure that there is room in her spinal canal for the leads and a behavioral health evaluation. Overall, at this time I would recommend the Vertiflex procedure for Concetta, but she notes that she would like to think about the procedure at this time. In regard to her medications, I am giving Concetta a short trial prescription of Tylenol 3. I believe that narcotics could be helpful in treating her painful symptoms at this time, but she is allergic to oxycodone, so I am trying Tylenol 3. I instructed her to start with a half table when she is in sever pain or on a highly active day so that she is able to do more than she is normally able to, due to her pain. Since she is allergic to oxycodone, I instructed her to not take it without someone around the first time. I am also worried that she could be a fall risk on this medication, making it important that she is not alone the first time she takes it. She notes some hesitancy with this medication at this time, so I will send her three tablets and see if she tried it and found relief at her next office visit. Regarding her current Tylenol regimen, Concetta was instructed to take one tablet three times a day, but she is only taking it twice a day at this time. I recommended that she take this third dose as needed since this could also help target her pain. Finally, Since Concetta is having some symptoms of depression and neuropathic pain, I recommended she discusses Cymbalta with her primary care provider. This could provide her pain relief and help with her current state of mental health. This treatment plan was reviewed with Concetta, and she was agreeable. I will continue to monitor her progress, and she will follow up as needed. Plan:1. Continue HEP2. Referral to [facility]3. Consider L2-L3 Vertiflex4. Consider SCS trial5. Trial Tylenol 36. Discuss Cymbalta with PCP7. Follow-up in one month Discharge instructions reviewed verbally. The patient was instructed to return to the office as scheduled and call with any questions, problems or concerns. 02/12/2023 Spinal stenosis of lumbar region with neurogenic claudication (ICD-10 - M48.062) 01/21/2023 Low back pain, unspecified (ICD-10 - M54.50) 01/02/2023 Unsteadiness on feet (ICD-10 - R26.81) 11/28/2022 Radiculopathy, lumbar region (ICD-10 - M54.16) 12/11/2022 Postlaminectomy syndrome, not elsewhere classified (ICD-10 - M96.1) 09/24/2022 Postlaminectomy syndrome, not elsewhere classified (ICD-10 - M96.1) 11/13/2022 Spondylosis without myelopathy or radiculopathy, lumbar region (ICD-10 - M47.816) 07/22/2022 Postlaminectomy syndrome, not elsewhere classified (ICD-10 - M96.1) 07/22/2022 Low back pain, unspecified (ICD-10 - M54.50) 11/13/2022 Postlaminectomy syndrome, not elsewhere classified (ICD-10 - M96.1) 09/24/2022 Low back pain, unspecified (ICD-10 - M54.50) 11/28/2022 Fusion of spine, lumbar region (ICD-10 - M43.26) 12/11/2022 Encounter for screening for osteoporosis (ICD-10 - Z13.820) 01/02/2023 Radiculopathy, lumbar region (ICD-10 - M54.16) 02/12/2023 Postlaminectomy syndrome, not elsewhere classified (ICD-10 - M96.1) 02/12/2023 Encounter for screening for osteoporosis (ICD-10 - Z13.820) 01/02/2023 Fusion of spine, lumbar region (ICD-10 - M43.26) 11/28/2022 Other intervertebral disc degeneration, lumbar region (ICD-10 - M51.36) 09/24/2022 Other chronic pain (ICD-10 - G89.29) Concetta returns to clinic today for a follow up evaluation regarding her chronic low back pain (R>L). I have reviewed the [facility] [place] database and did not find any inconsistencies. We discussed her current symptoms and medications. I will continue with a treatment plan consisting of conservative therapy at this time. Due to previous relief from her injection in 06/2022, I will order a repeat aleksandar L3-4 TFE. This treatment plan was reviewed with Concetta, and she was agreeable. I will continue to monitor her progress and she will follow up as needed. Plan:1. Order repeat aleksandar L3-4 TFE2. Follow up as needed Discharge instructions reviewed verbally. The patient was instructed to return to the office as scheduled and call with any questions, problems or concerns. 11/13/2022 Encounter for screening for osteoporosis (ICD-10 - Z13.820) 07/22/2022 Other chronic pain (ICD-10 - G89.29) Concetta returns to clinic today for a follow up evaluation regarding her chronic low back pain (R>L). I have reviewed the [facility] [place] database and did not find any inconsistencies. We discussed her current symptoms and medications. On 06/26/2022, she underwent an L3-L4 LESI and reports 40% relief. I advised that she start physical therapy for her low back pain at [facility] now that she has received her injection. I will consider another injection if her pain does not improve after 6 weeks of physical therapy. I will continue with a treatment plan consisting of conservative therapy at this time. This treatment plan was reviewed with Concetta, and she was agreeable. I will continue to monitor her progress and she will follow up as needed. Discharge instructions reviewed verbally. The patient was instructed to return to the office as scheduled and call with any questions, problems or concerns. 11/28/2022 Segmental and somatic dysfunction of lumbar region (ICD-10 - M99.03) 01/02/2023 Other intervertebral disc degeneration, lumbar region (ICD-10 - M51.36) 02/12/2023 Low back pain, unspecified (ICD-10 - M54.50) 01/02/2023 Segmental and somatic dysfunction of lumbar region (ICD-10 - M99.03) 07/22/2022 Other [place], Silvia Westfall , am serving as a scribe to document services personally performed by Collins Woods PA-C, based upon my observations and the provider's statements to me. All documentation has been reviewed by the aforementioned JOSE GUADALUPE. I, Collins Woods PA-C, attest that the above named individual is acting in scribe capacity, has observed my performance of the services and has documented them in accordance with my direction. The documentation recorded by the scribe accurately reflects the service I personally performed and the decisions made during the clinic visit. 09/24/2022 Other [place], Eddi Thornton , am serving as a scribe to document services personally performed by Collins Woods PA-C, based upon my observations and the provider's statements to me. All documentation has been reviewed by the aforementioned JOSE GUADALUPE. I, Collins Woods PA-C, attest that the above named individual is acting in scribe capacity, has observed my performance of the services and has documented them in accordance with my direction. The documentation recorded by the scribe accurately reflects the service I personally performed and the decisions made during the clinic visit. 11/13/2022 Other I, Silvia Westfall , am serving as a scribe to document services personally performed by Deshawn Casanova PA-C, based upon my observations and the provider's statements to me. All documentation has been reviewed by the aforementioned JOSE GUADALUPE as well as Jeffrey Rogers MD, prior to being entered into the official medical record. Jeffrey Mead MD attest that the above named individual is acting in scribe capacity, has observed Deshawn Casanova's performance of the services and has documented them in accordance with her direction. The documentation recorded by the scribe accurately reflects the service Deshawn Casanova PA-C and Jeffrey Rogers MD personally performed and the decisions made by them. 11/28/2022 Other I, Eddi Thornton , am serving as a scribe to document services personally performed by Jh Best MD, based upon my observations and the provider's statements to me. All documentation has been reviewed by the aforementioned doctor prior to being entered into the official medical record. I, Jh Best MD attest that the above named individual is acting in scribe capacity, has observed my performance of the services and has documented them in accordance with my direction. The documentation recorded by the scribe accurately reflects the service I personally performed and the decisions made by me. 12/11/2022 Other I, Fernanda lala, am serving as a scribe to document services personally performed by Deshawn Casanova PA-C, based upon my observations and the provider's statements to me. All documentation has been reviewed by the aforementioned JOSE GUADALUPE as well as Jeffrey Rogers MD, prior to being entered into the official medical record. IJeffrey MD attest that the above named individual is acting in scribe capacity, has observed Deshawn Casanova's performance of the services and has documented them in accordance with her direction. The documentation recorded by the scribe accurately reflects the service Deshawn Casanova PA-C and Jeffrey Rogers MD personally performed and the decisions made by them. 01/02/2023 Other I, Servando Ortakelly sellers, am serving as a scribe to document services personally performed by Jh Best MD, based upon my observations and the provider's statements to me. All documentation has been reviewed by the aforementioned doctor prior to being entered into the official medical record. I, Jh Best MD attest that the above named individual is acting in scribe capacity, has observed my performance of the services and has documented them in accordance with my direction. The documentation recorded by the scribe accurately reflects the service I personally performed and the decisions made by me. 02/12/2023 Other I, Joann Mcdonnell, am serving as a scribe to document services personally performed by Deshawn Casanova PA-C, based upon my observations and the provider's statements to me. All documentation has been reviewed by the aforementioned JOSE GUADALUPE as well as Jeffrey Rogers MD, prior to being entered into the official medical record. I, Jeffrey Rogers MD attest that the above named individual is acting in scribe capacity, has observed Deshawn Casanova's performance of the services and has documented them in accordance with her direction. The documentation recorded by the scribe accurately reflects the service Deshawn Casanova PA-C and Jeffrey Rogers MD personally performed and the decisions made by them. PLAN OF TREATMENT Pending Test Test Name Order Date DEXA scan 11/20/2022 CT : Lumbar Spine 05/13/2022 MRI : Lumbar 05/07/2022 X ray : Hip, right 05/07/2022 Dexa Scan 11/13/2022 Insurance Providers Payer Name Payer Address Payer Phone Subscriber Number Group Number Insured Name Patient Relationship to Insured Coverage Start Date Coverage End Date [facility] [employer] [address] [address] [place] [address] [id number] Carol Concetta Self - patient is the insured Medicare Part B [employer] [address] [place] [address] [id number] Concetta Medina Self - patient is the insured 9 MEDICAL (GENERAL) HISTORY Medical History History ICD Code Kidney Disease Diabetes Arthritis Cancer (breast) Chronic kidney disease (Stage 5) Anemia of chronic renal failure Restless leg syndrome Meniere's disease Hyperlipidemia Gout Sleep apnea Surgical History Surgery Date(Month/Year) L4-5 fusion (Dr. Doyle) 02/04/19 Hysterectomy Tonsillectomy Hospitalization History Reason Date(Month/Year) See surgical history
[2023-06-24 18:21] LABS: Anion Gap 11 mEq/L (7-15); Blood Urea Nitrogen* 25 mg/dL (7-30); Carbon Dioxide* 24 mmol/L (20-32); Creatinine* 3.2 mg/dL (0.5-1.5); Est. Creatinine Clearance* 12.83; Estimated Glomerular Filt Rate 14 ml/min
[2023-06-24 18:22] LABS: Calcium* 10.2 mg/dL (8.4-10.6); Glucose* 130 mg/dL (60-115)
[2023-06-24 18:27] LABS: Troponin, Point-of-Care* 0.15 ng/ml (0.01-0.04)
[2023-06-24] MEDS: dilTIAZem 5 MG/ML inj 20 MG IVP (18:31)
[2023-06-24] MEDS: 0.9 % SODIUM CHLORIDE 500 ML 500 ML IV (18:31)
[2023-06-24 18:46] LABS: Troponin I* 0.18 ng/mL (0.01-0.04)
== END 2023-06-24 19:25 | disposition home or self-care (01) ==
PROVIDERS: Emergency Provider Emergency Medicine Emergency Medical Services; PCP Nurse Practitioner Family
DX: I48.20 Chronic atrial fibrillation, unspecified (principal)
CPT/HCPCS: 36415; 80048; 84484; 85025; 99284; J7030

== ENCOUNTER 2025-01-16 13:14 | Outpatient (CLI) | payer MEDICARE, BC, SELFPAY | END 2025-01-16 13:15 | disposition home or self-care (01) | LOC: AMB 01-19 13:28 | PROVIDERS: Visit Provider Family Medicine | DX: R47.81 Slurred speech (principal); R53.1 Weakness | CPT/HCPCS: A0425; A0427 ==

== ENCOUNTER 2025-01-16 13:49 | Emergency (ER) | payer MEDICARE, BC, MEDICAID, SELFPAY ==
--- OUTSIDE RECORDS SUMMARY | 2009-06-15 15:15 | XMS_ITS | Encounter Summary ---
Author Organization [place] Address [address] [place] [id number] Care Team Providers Care Small Offset Printer Name Role Phone Frw, None Primary Care Provider UnavailFemi Brooks MD Unavailable [phone] Gavi Tong Unavailable Encounter Details Date Type Department Care Team (Late st Contact Info) Description 06/15/2009 2:15 PM [facility] in [facility] [address] [place] [id number] Meet Ayala MD [address] [phone] Social History Tobacco Use Types Packs/Day Years Used Date Smoking Tobacco: Former Cigarettes 0.5 20 0 09/21/1990 - 09/21/2010 Smokeless Tobacco: Never Alcohol Use Standard Drinks/Week Comments Yes 0 (1 standard drink = 0.6 oz pur e alcohol) Rarely Comments No Sex and Gender Information Value Date Recorded Sex Assigned at Not on file Legal Sex Female 4:15 AM [employer] Gender Identity Not on file Sexual Orientation Not on file documented as of this encounter Plan of Treatment Not on file documented as of this encounter Visit Diagnoses Not on filedocumented in this encounter Care Teams Small Offset Printer Relationship Specialty Start Date End Date Frw, Yves PCP - General 06/02/00 01/08/17 Femi Ayala MD XXX RETIRED XXX [address] [facility] [address] [place] [address] PCP - ENT 06/13/09 04/20/18 Gavi Tong XXX RETIRED XXX [address] [facility] [address] [place] [address] PCP - Audiology 06/13/09 documented as of this encounter
--- OUTSIDE RECORDS SUMMARY | 2024-12-05 08:45 | XMS_ITS | Encounter Summary ---
Author Organization [facility] Address [address] [place] [address] Care Team Providers Care Kiln Head House Operator Name Role Phone Allyn Alfredo M.D. Primary Care Pro vider Reason for Referral * Outpatient (Routine) - Authorized Specialty Diagnoses / Procedures Referred By Esther zamorano Referred To Contact Orthopedic Surgery Diagnoses Diabetes Mellitus Type 2 With Diabetic Neuropathy (HCC) Onychomycosis Pain Toe Left Pain Toe Right Cindy Walker D.P.M. [address] [place] [address] Phone: tel: fax: [facility] Region Referral ID Status Reason Start Date Expiration Date V isits Requested Visits Authorized [id number] Authorized 12/05/2024 06/06/2026 1 1 Reason for Visit * Reason Comments Nail Problem Diabetic nail care Nail Problem * Outpatient (Routine) - Closed Specialty Diagnoses / Procedures Referred By Esther zamorano Referred To Contact Orthopedic Surgery Diagnoses Diabetes Mellitus Type 2 With Diabetic Neuropathy (HCC) Onychomycosis Pain Toe Left Pain Toe Right Cindy Walker D.P.M. [address] [place] [address] Phone: tel: fax: [facility] Region Referral ID Status Reason Start Date Expiration Date Visits Re quested Visits Authorized [id number] Closed 09/05/2024 03/07/2026 1 1 Encounter Details Date Type Department Care Team (Late st Contact Info) Description 12/05/2024 8:45 AM CDT Office Visit Department of Orthopedic Surgery in [address] [phone] Cindy Walker D.PAv [address] [place] [phone] Diabetes Mellitus Type 2 With Diabetic Neuropathy (HCC) (Primary Dx); Onychomycosis; Pain Toe Left; Pain Toe Right Discharge Disposition: Home or Self Care Social History Tobacco Use Types Packs/Day Years Used Date Smoking Tobacco: Former Cigarettes 1 51 0 05/19/1961 - 2012 Passive Smoke Exposure: Yes Smokeless Tobacco: Never Alcohol Use Standard Drinks/Week Comments Not Currently 0 (1 standard drink = 0.6 oz pure alcohol) very rarely do I have a drink Flexisities Answer Date Recorded In the past 12 months has [facility] [employer], gas, oil, or water [place] threatened to shut off services in your home? No 11/15/2024 Humiliation, Afraid, Rape, and Kick questionnair e Answer Date Recorded Within the last year, have y ou been afraid of your partner or ex-partner? No 11/15/2024 Within the last year, have y ou been humiliated or emotionally abused in other ways by your partner or ex-partner? No Within the last year, have y ou been kicked, hit, slapped, or otherwise physically hurt by your partner or ex-partner? No 11/15/2024 Within the last year, have y ou been raped or forced to have any kind of sexual activity by your partner or ex-partner? No 11/15/2024 Hunger Vital Sign Answer Date Recorded Within the past 12 months, y ou worried that your food would run out before you got the money to buy more. Sometimes true Within the past 12 months, t he food you bought just didn't last and you didn't have money to get more. Sometimes true 12/2024 PRAPARE - Transportation Answer Date Re corded In the past 12 months, has l ack of transportation kept you from medical appointments or from getting medications? Yes 12/2024 In the past 12 months, has l ack of transportation kept you from meetings, work, or from getting things needed for daily living? Yes 11/15/2024 Depression Answer Date Recor ded PHQ-9 Total Score (max 27) 0 02/23 Housing Stability Answer Date Recorded What is your living situation today? I have a [facility] [place] place to live 11/15/2024 Education Answer Date Recorded What is the highest level of school you have completed or the highest degree you have received? Some college, no degree 10/24/2018 Comments No Sex and Gender Information Value Date Recorded Sex Assigned at Female 03/27/2017 3:30 PM TABLE COVER FOLDER Legal Sex Female 10:26 AM TABLE COVER FOLDER Gender Identity Female 03/27/2017 3:30 PM TABLE COVER FOLDER Sexual Orientation Straight 03/27/2017 3: 30 PM TABLE COVER FOLDER Occupation Industry Job Start Date Job End Date Not on file Not on file Not on file Not on file documented as of this encounter Progress Notes * Cindy Walker D.P.M. - 12/05/2024 8:45 AM CDT SUBJECTIVE CHIEF COMPLAINT/REASON FOR VISIT Chief Complaint Patient presents with Right Foot - Nail Problem Diabetic nail care Left Foot - Nail Problem HISTORY OF PRESENT ILLNESS Concetta Medina is a 79 y.o. female seen for necessary foot care and complaint of painful thickened nails bilaterally. OBJECTIVE PHYSICAL EXAMINATION DP and PT pulses nonpalpable bilaterally. Skin is thin, shiny, frail, xerotic, ruborous, cold, and atrophic bilaterally with absent digital hair growth. Nails are elongated, thick,dystrophic, incurvated, and painful times 10 with lysis, crumbling, and subungual debris. ASSESSMENT / PLAN #1 Diabetes Mellitus Type 2 With Diabetic Neuropathy (HCC) #2 Onychomycosis #3 Pain Toe Left #4 Pain Toe Right PLAN Nails debrided x 10. Patient to follow up in 13 weeks for necessary foot care, sooner if questions or problems. documented in this encounter Plan of Treatment Upcoming Encounters Date Type Department Care Team (Latest Contact Info) Description 01/17/2025 9:15 AM CDT Appointment Department of Radiology, [facility] in [place], [place] [address] [place] [place] [phone] Jacklyn Mccarthy APRN, C.N.P., M.S.N. [address] [place] [phone] Discharge Disposition: Home or Self Care 01/17/2025 3:30 PM CDT Clinical Support Department of Rehabilitation Services in [address] [phone] Wilfrid Lincoln Jr., D.OLeida [address] [place] [phone] Sondra Ibarra P.T., D.P.T. 01/24/2025 1:15 PM CDT Clinical Support Department of Rehabilitation Services in [address] [phone] Wilfrid Lincoln Jr., D.OLeida [address] [place] [phone] Sondra Ibarra P.T., D.P.T. 02/09/2025 10:10 AM CDT Appointment Department of Laboratory Medicine in [address] [phone] Allyn Alfredo M.D. [address] [place] [phone] 02/09/2025 10:40 AM CDT Office Visit Department of Family Medicine, [facility], in [address] [phone] Allyn Alfredo M.D. [address] [place] [phone] Discharge Disposition: Home or Self Care 03/06/2025 8:45 AM CDT Office Visit Department of Orthopedic Surgery in [address] [phone] Cindy Walker D.PLeidaMLeida [address] [facility] [place] [phone] Discharge Disposition: Home or Self Care 04/11/2025 4:00 PM TABLE COVER FOLDER Telemedicine Department of Sleep Medicine in [place], [place] [address] [phone] Emilee Emanuel APRN, C.N.P., D.N.P., M.S.N. [address] [phone] Scheduled Referrals Name Type Priority Associated Diagnoses Order Schedule Orthopedic Surgery office visit (clinic) Outpatient Referral Routine Diabetes Mellitus Type 2 With Diabetic Neuropathy (HCC) Onychomycosis Pain Toe Left Pain Toe Right Expected: 03/07/2025, Expires: 03/07/2026 documented as of this encounter Visit Diagnoses Diagnosis Diabetes Mellitus Type 2 With Diabetic Neuropathy (HCC)- Primary Onychomycosis Pain Toe Left Pain Toe Right documented in this encounter Additional Health Concerns Assessment Noted Time PHQ-9 Depression Total Score: 0 02/24/20 23 1:03 PM CDT documented as of this encounter Care Teams Kiln Head House Operator Relationship Specialty Start Date End Date Allyn Alfredo M.D. [address] [phone] PCP - General Family Medicine 04/05/21 documented as of this encounter
--- OUTSIDE RECORDS SUMMARY | 2024-12-06 14:45 | XMS_ITS | Encounter Summary ---
Author Organization [facility] Address [address] [place] [address] Care Team Providers Care Collar Padder Blindstitch Name Role Phone Allyn Alfredo M.D. Primary Care Pro vider Reason for Visit * Physical Therapy (Routine) - Authorized Specialty Diagnoses / Procedures Referred By Esther zamorano Referred To Contact Diagnoses Decline Functional Status Pain Leg Bilateral Procedures PT Ongoing treatment Brinda Schmidt P.A.-C., M.S. [address] [place] [phone] Phone: tel: fax: [facility] Region Referral ID Status Reason Start Date Expiration Date V isits Requested Visits Authorized [id number] Authorized 05/17/2024 05/17/2025 99 99 Encounter Details Date Type Department Care Team (Late st Contact Info) Description 12/06/2024 2:45 PM CDT Clinical Support Department of Rehabilitation Services in [address] [phone] Brinda Schmidt P.A.-C., M.S. [address] [place] [phone] Sondra Ibarra P.T., D.P.T. Decline Functional Status [R53.81]; Pain Leg Bilateral Social History Tobacco Use Types Packs/Day Years Used Date Smoking Tobacco: Former Cigarettes 1 51 0 05/19/1961 - 2012 Passive Smoke Exposure: Yes Smokeless Tobacco: Never Alcohol Use Standard Drinks/Week Comments Not Currently 0 (1 standard drink = 0.6 oz pure alcohol) very rarely do I have a drink [facility] Utilities Answer Date Recorded In the past 12 months has [facility] [employer], oil, or water [employer] threatened to shut off services in your [...] your living situation today? [facility] 11/15/2024 Education Answer Date Recorded What is the highest level of school you have completed or the highest degree you have received? Some college, no degree 10/24/2018 Comments No Sex and Gender Information Value Date Recorded Sex Assigned at Female 03/27/2017 3:30 PM GLASS PRODUCTS INSPECTOR Legal Sex Female 10:26 AM GLASS PRODUCTS INSPECTOR Gender Identity Female 03/27/2017 3:30 PM GLASS PRODUCTS INSPECTOR Sexual Orientation Straight 03/27/2017 3: 30 PM GLASS PRODUCTS INSPECTOR Occupation Industry Job Start Date Job End Date Not on file Not on file Not on file Not on file documented as of this encounter Progress Notes * Sondra Ibarra P.T., D.P.T. - 12/06/2024 2:45 PM CDT Physical Therapy Outpatient Treatment Note SUBJECTIVE Patient's Name: Concetta Medina Referring Provider: Carl Delarosa-* Visit Diagnosis: 1. Decline Functional Status [R53.81] 2. Pain Leg Bilateral Payor: MEDICARE / Plan: MEDICARE A AND B / Product Type: Medicare / PT Next Certification Date: 11/29/24 Epic Visit Count: 19 Patient comments: Patient reports that back pain is getting better, but is still bothersome. Her heating pad helps OBJECTIVE Pain: back pain is improving TREATMENT Treatment today consisted of: Therapeutic Exercise: -Sci-Fit Total body ergometer at level 4.5 resistance x10 minutes -Back extension at 110# 3x12 -Leg press at 40# 3x10 -Lumbar distraction at parallel bars 3x30 -Single hip abduction 2x10 -Green band resisted rows x10 -Green band resisted shoulder extension x10 -Heel raises x20 -NBOS with head turns L/R x20 and U/D x20 -Tandem balance on foam pad 2x30 each side Home Exercise Program/Education: Continue previous packet provided Patient reports good HEP compliance. Assessment Clinical Impression: Patient is a pleasant 78-year-old female who presents to therapy for continuedrehabilitation for balance and stability after right pelvic fracture on August 25. Patient tolerated our session well. Her back pain is improving. Her gait and stability are slowly improving as well. Patient would benefit from skilled physical therapy to address the previous stated impairments. Functional Goals and Timeframes: PT Goal #1: Patient will ambulate community distances with least restrictive device, with no antalgia in order to progress towards prior level of function PT Goal #1 to be achieved by: 10/30/24 PT Goal #2: Patient will score 13 on 30 seconds [id number] with less than 3/10 pain in right hip in order to progress towards prior level of function PT Goal #2 to be achieved by: 10/30/24 PT Goal #3: Patient will be independent compliant with home exercise program in order to progress towards prior level of function PT Goal #3 to be achieved by: 09/29/24 PT Goal #4: Patient will score 40/56 on the Viera balance score her to reduce risk of falls PT Goal #4 to be achieved by: 11/29/24 Plan Plan for next session: Strength, balance, endurance Time Spent with Patient Therapeutic Interventions Therapeutic Exercise (min): 42 min Time Tracking Total Timed Units (min): 42 min Total Treatment Time (min): 42 min documented in this encounter Plan of Treatment Upcoming Encounters Date Type Department Care Team (Latest Contact Info) Description 01/17/2025 9:15 AM CDT Appointment Department of Radiology, [facility] in [place], [place] [address] [place] [phone] Jacklyn Mccarthy, ANU, C.N.P., M.S.N. [address] [place] [phone] Discharge Disposition: Home or Self Care 01/17/2025 3:30 PM CDT Clinical Support Department of Rehabilitation Services in [address] [phone] Wilfrid Lincoln Jr., Jayden.OLeida [address] [place] [phone] Sondra Ibarra P.T., D.P.T. 01/24/2025 1:15 PM CDT Clinical Support Department of Rehabilitation Services in [address] [place] [phone] Wilfrid Lincoln Jr., D.OLeida [address] [place] [phone] Sondra Ibarra P.T., D.P.T. 02/09/2025 10:10 AM CDT Appointment Department of Laboratory Medicine in [address] [phone] Allyn Alfredo M.D. [address] [place] [phone] 02/09/2025 10:40 AM CDT Office Visit Department of Family Medicine, [facility], in [address] [phone] Allyn Alfredo M.D. [address] [place] [phone] Discharge Disposition: Home or Self Care 03/06/2025 8:45 AM CDT Office Visit Department of Orthopedic Surgery in [address] [phone] Cindy Walker, ChristineP.MLeida [address] [place] [phone] Discharge Disposition: Home or Self Care 04/11/2025 4:00 PM GLASS PRODUCTS INSPECTOR Telemedicine Department of Sleep Medicine in [place], [place] [address] [place] [phone] Emilee Emanuel APRN, C.N.P., D.N.P., M.S.N. [address] [phone] documented as of this encounter Visit Diagnoses Diagnosis Decline Functional Status [R53.81] Pain Leg Bilateral documented in this encounter Additional Health Concerns Assessment Noted Time PHQ-9 Depression Total Score: 0 02/24/20 23 1:03 PM CDT documented as of this encounter Care Teams Collar Padder Blindstitch Relationship Specialty Start Date End Date Allyn Alfredo M.D. [address] [phone] PCP - General Family Medicine 04/05/21 documented as of this encounter
--- OUTSIDE RECORDS SUMMARY | 2024-12-08 13:00 | XMS_ITS | Encounter Summary ---
Author Organization [facility] Address [address] [place] [address] Care Team Providers Care Funeral Pre Arrangement Counselor Name Role Phone Allyn Alfredo M.D. Primary Care Pro vider Reason for Visit * Physical Therapy (Routine) - Authorized Specialty Diagnoses / Procedures Referred By Esther zamorano Referred To Contact Diagnoses Decline Functional Status Pain Leg Bilateral Procedures PT Ongoing treatment Brinda Schmidt P.A.-C., M.S. [address] [place] [phone] Phone: tel: fax: [facility] Region Referral ID Status Reason Start Date Expiration Date V isits Requested Visits Authorized [id number] Authorized 05/17/2024 05/17/2025 99 99 Encounter Details Date Type Department Care Team (Late st Contact Info) Description 12/08/2024 1:00 PM CDT Clinical Support Department of Rehabilitation Services in [address] [phone] Brinda Schmidt P.A.-C., M.S. [address] [place] [phone] Sondra Ibarra P.T., D.P.T. Decline Functional Status [R53.81]; Pain Leg Bilateral Social History Tobacco Use Types Packs/Day Years Used Date Smoking Tobacco: Former Cigarettes 1 51 0 05/19/1961 - 2012 Passive Smoke Exposure: Yes Smokeless Tobacco: Never Alcohol Use Standard Drinks/Week Comments Not Currently 0 (1 standard drink = 0.6 oz pure alcohol) very rarely do I have a drink [facility] Utilities Answer Date Recorded In the past 12 months has [facility] [employer], oil, or water [employer] threatened to shut off services in your [...] your living situation today? [facility] 11/15/2024 Education Answer Date Recorded What is the highest level of school you have completed or the highest degree you have received? Some college, no degree 10/24/2018 Comments No Sex and Gender Information Value Date Recorded Sex Assigned at Female 03/27/2017 3:30 PM MEAT GRINDER Legal Sex Female 10:26 AM MEAT GRINDER Gender Identity Female 03/27/2017 3:30 PM MEAT GRINDER Sexual Orientation Straight 03/27/2017 3: 30 PM MEAT GRINDER Occupation Industry Job Start Date Job End Date Not on file Not on file Not on file Not on file documented as of this encounter Progress Notes * Sondra Ibarra P.T., D.P.T. - 12/08/2024 1:00 PM CDT Physical Therapy Outpatient Treatment Note SUBJECTIVE Patient's Name: Concetta Medina Referring Provider: Carl Delarosa-* Visit Diagnosis: 1. Decline Functional Status [R53.81] 2. Pain Leg Bilateral Payor: MEDICARE / Plan: MEDICARE A AND B / Product Type: Medicare / PT Next Certification Date: 11/29/24 Epic Visit Count: 20 Patient comments: Patient feels more steady. Hip pain has slowly resolved. Patient had elevated back pain today, but this is better after Tylenol and movement OBJECTIVE Pain: no pain today TREATMENT Treatment today consisted of: Therapeutic Exercise: -Sci-Fit Total body ergometer at level 4 resistance x12 minutes -Supine knee to chest stretch 3x30 -Crossed leg knee to chest 5x15 -Crossed leg ER stretch 5x15 -Supine LTR x30 -PPT x10 with TC -Supine core engagement with small crunch -Supine SLR - lifting 12 inches 2 x 8 reps -Sidelying open book 2x5 each side -Forward seated trunk flexion stretch 2x30 - alternating R/L side Home Exercise Program/Education: Continue previous packet provided Patient reports good HEP compliance. Assessment Clinical Impression: Patient is a pleasant 78-year-old female who presents to therapy for continuedrehabilitation for balance and stability after right pelvic fracture on August 25. We focused on low back pain today, her symptoms improved after our session. Overall patients stability and overall activity tolerance have improved the last few sessions. Patient would benefit from skilled physical therapy to address the previous stated impairments. Functional Goals and Timeframes: PT Goal #1: Patient will ambulate community distances with least restrictive device, with no antalgia in order to progress towards prior level of function PT Goal #1 to be achieved by: 10/30/24 PT Goal #2: Patient will score 13 on 30 seconds [id number] with less than 3/10 pain in right [...] with Patient Therapeutic Interventions Therapeutic Exercise (min): 41 min Time Tracking Total Timed Units (min): 41 min Total Treatment Time (min): 41 min documented in this encounter Plan of Treatment Upcoming Encounters Date Type Department Care Team (Latest Contact Info) Description 01/17/2025 9:15 AM CDT Appointment Department of Radiology, [facility], in [place], [place] [address] [place] [phone] Jacklyn Mccarthy APRN, C.N.P., M.S.N. [address] [place] [phone] Discharge Disposition: Home or Self Care 01/17/2025 3:30 PM CDT Clinical Support Department of Rehabilitation Services in [address] [phone] Wilfrid Lincoln Jr., Jayden.O. [address] [place] [phone] Sondra Ibarra P.T., D.P.T. 01/24/2025 1:15 PM CDT Clinical Support Department of Rehabilitation Services in [address] [phone] Wilfrid Lincoln Jr., D.OLeida 200 [place] [phone] Sondra Ibarra P.T., D.P.T. 02/09/2025 10:10 AM CDT Appointment Department of Laboratory Medicine in [address] [phone] Allyn Alfredo M.D. [address] [place] [phone] 02/09/2025 10:40 AM CDT Office Visit Department of Family Medicine, [facility], in [address] [phone] Allyn Alfredo M.D. [address] [place] [phone] Discharge Disposition: Home or Self Care 03/06/2025 8:45 AM CDT Office Visit Department of Orthopedic Surgery in [address] [phone] Cindy Walker D.PLeidaMLeida [address] [place] [phone] Discharge Disposition: Home or Self Care 04/11/2025 4:00 PM MEAT GRINDER Telemedicine Department of Sleep Medicine in [place], [place] [address] [place] [phone] Emilee Emanuel APRN, C.N.P., D.N.P., M.S.N. [address] [phone] documented as of this encounter Visit Diagnoses Diagnosis Decline Functional Status [R53.81] Pain Leg Bilateral documented in this encounter Additional Health Concerns Assessment Noted Time PHQ-9 Depression Total Score: 0 02/24/20 23 1:03 PM CDT documented as of this encounter Care Teams Funeral Pre Arrangement Counselor Relationship Specialty Start Date End Date Allyn Alfredo M.D. [address] [place] [phone] PCP - General Family Medicine 04/05/21 documented as of this encounter
--- OUTSIDE RECORDS SUMMARY | 2024-12-13 13:45 | XMS_ITS | Encounter Summary ---
Author Organization [facility] Address [address] [place] [address] Care Team Providers Care Watch Inspector Final Movement Name Role Phone Allyn Alfredo M.D. Primary Care Pro vider Reason for Visit * Physical Therapy (Routine) - Authorized Specialty Diagnoses / Procedures Referred By Esther zamorano Referred To Contact Diagnoses Decline Functional Status Pain Leg Bilateral Procedures PT Ongoing treatment Brinda Schmidt P.A.-C., M.S. [address] [place] [phone] Phone: tel: fax: [facility] Region Referral ID Status Reason Start Date Expiration Date V isits Requested Visits Authorized [id number] Authorized 05/17/2024 05/17/2025 99 99 Encounter Details Date Type Department Care Team (Latest Contact Info) Description 12/13/2024 1:45 PM CDT Clinical Support Department of Rehabilitation Services in [address] [phone] Brinda Schmidt P.A.-C., M.S. [address] [place] [phone] Teo Bangura P.TLeida [address] [place] [phone] Decline Functional Status (Primary Dx); Pain Leg Bilateral Social History Tobacco Use Types Packs/Day Years Used Date Smoking Tobacco: Former Cigarettes 1 51 0 05/19/1961 - 2012 Passive Smoke Exposure: Yes Smokeless Tobacco: Never Alcohol Use Standard Drinks/Week Comments Not Currently 0 (1 standard drink = 0.6 oz pure alcohol) very rarely do I have a drink [facility] Utilities Answer Date Recorded In the past 12 months has [employer], gas, oil, or water [employer] threatened to shut off services in your [...] your living situation today? I have a [employer] place to live 11/15/2024 Education Answer Date Recorded What is the highest level of school you have completed or the highest degree you have received? Some college, no degree 10/24/2018 Comments No Sex and Gender Information Value Date Recorded Sex Assigned at Female 03/27/2017 3:30 PM HEALTH AND WELLNESS DIRECTOR Legal Sex Female 10:26 AM HEALTH AND WELLNESS DIRECTOR Gender Identity Female 03/27/2017 3:30 PM HEALTH AND WELLNESS DIRECTOR Sexual Orientation Straight 03/27/2017 3: 30 PM HEALTH AND WELLNESS DIRECTOR Occupation Industry Job Start Date Job End Date Not on file Not on file Not on file Not on file documented as of this encounter Progress Notes * Teo Bangura PLeidaT. - 12/13/2024 1:45 PM CDT Physical Therapy Outpatient Treatment Note SUBJECTIVE Patient's Name: Concetta Medina Referring Provider: Carl Delarosa-* Visit Diagnosis: 1. Decline Functional Status 2. Pain Leg Bilateral Payor: MEDICARE / Plan: MEDICARE A AND B / Product Type: Medicare / PT Next Certification Date: 11/29/24 Epic Visit Count: 21 Patient comments: Siobhan comes into therapy today with no new complaints. OBJECTIVE Pain: Pain Assessment Pain Score: 0 - No pain Ortho Exam TREATMENT Treatment today consisted of: We concentrated on strengthening of the core in lower/upper extremities. This included pelvic stabilization exercises in supine. She worked on quad strengthening with resistance by the therapist in short sitting. We had her work on squatting exercises from the treatment table. She then worked on rows as well as pull Downs with the wall unit. This was at 40 and 30 lb. We had her work on back extension exercises on machine for 3 sets of 10. Assessment Clinical Impression: Patient tolerated well overall Functional Goals and Timeframes: PT Goal #1: Patient will ambulate community distances with least restrictive device, with no antalgia in order to progress towards prior level of function PT Goal #1 to be achieved by: 10/30/24 PT Goal #2: Patient will score 13 on 30 seconds [id number] with less than 3/10 pain in right [...] #4 to be achieved by: 11/29/24 Plan Upon will be to continue with strengthening/balance. Plan for next session: Time Spent with Patient Therapeutic Interventions Therapeutic Exercise (min): 45 min Time Tracking Total Timed Units (min): 45 min Total Treatment Time (min): 45 min documented in this encounter Plan of Treatment Upcoming Encounters Date Type Department Care Team (Latest Contact Info) Description 01/17/2025 9:15 AM CDT Appointment Department of Radiology, [facility] in [place], [place] [address] [place] [phone] Jacklyn Mccarthy APRN, C.N.P., M.S.N. [address] [place] [phone] Discharge Disposition: Home or Self Care 01/17/2025 3:30 PM CDT Clinical Support Department of Rehabilitation Services in [address] [phone] Wilfrid Lincoln Jr., D.OLeida [address] [place] [phone] Sondra Ibarra P.T., D.P.T. 01/24/2025 1:15 PM CDT Clinical Support Department of Rehabilitation Services in [address] [phone] Wilfrid Lincoln Jr., D.O. [address] [place] [phone] Sondra Ibarra P.T., D.P.T. 02/09/2025 10:10 AM CDT Appointment Department of Laboratory Medicine in [address] [phone] Allyn Alfredo M.D. [address] [place] [phone] 02/09/2025 10:40 AM CDT Office Visit Department of Family Medicine, [facility], in [address] [phone] Allyn Alfredo M.D. [address] [place] [phone] Discharge Disposition: Home or Self Care 03/06/2025 8:45 AM CDT Office Visit Department of Orthopedic Surgery in [address] [phone] Cindy Walker D.PLeidaMLeida [address] [facility] [place] [phone] Discharge Disposition: Home or Self Care 04/11/2025 4:00 PM HEALTH AND WELLNESS DIRECTOR Telemedicine Department of Sleep Medicine in [place], [place] [address] [phone] Emilee Emanuel APRN, C.N.P., D.N.P., M.S.N. [address] [place] [phone] documented as of this encounter Visit Diagnoses Diagnosis Decline Functional Status- Primary Pain Leg Bilateral documented in this encounter Additional Health Concerns Assessment Noted Time PHQ-9 Depression Total Score: 0 02/24/20 23 1:03 PM CDT documented as of this encounter Care Teams Watch Inspector Final Movement Relationship Specialty Start Date End Date Allyn Alfredo M.D. [address] [phone] PCP - General Family Medicine 04/05/21 documented as of this encounter
--- OUTSIDE RECORDS SUMMARY | 2024-12-15 09:45 | XMS_ITS | Encounter Summary ---
Author Organization [facility] Address [address] [place] [address] Care Team Providers Care Portable Pinch Riveter Name Role Phone Allyn Alfredo M.D. Primary Care Pro vider Reason for Visit * Physical Therapy (Routine) - Authorized Specialty Diagnoses / Procedures Referred By Esther zamorano Referred To Contact Diagnoses Decline Functional Status Pain Leg Bilateral Procedures PT Ongoing treatment Brinda Schmidt P.A.-C., M.S. [address] [place] [phone] Phone: tel: fax: [facility] Region Referral ID Status Reason Start Date Expiration Date V isits Requested Visits Authorized [id number] Authorized 05/17/2024 05/17/2025 99 99 Encounter Details Date Type Department Care Team (Latest Contact Info) Description 12/15/2024 9:45 AM CDT Clinical Support Department of Rehabilitation Services in [address] [phone] Brinda Schmidt P.A.-C., M.S. [address] [place] [phone] Sondra Ibarra P.T., D.P.T. Unsteadiness Gait Disorder Non Orthopedic (Primary Dx); Deconditioned; Pain Hip Right Social History Tobacco Use Types Packs/Day Years Used Date Smoking Tobacco: Former Cigarettes 1 51 0 05/19/1961 - 2012 Passive Smoke Exposure: Yes Smokeless Tobacco: Never Alcohol Use Standard Drinks/Week Comments Not Currently 0 (1 standard drink = 0.6 oz pure alcohol) very rarely do I have a drink Humiliation, Afraid, Rape, and Kick questionnair e [...] you got the money to buy more. Often true 12/16/19 25 Within the past 12 months, t he food you bought just didn't last and you didn't have money to get more. Often true 12/15/2024 PRAPARE - Transportation Answer Date Re corded In the past 12 months, has l ack of transportation kept you from medical appointments or from getting medications? No 11/2024 In the past 12 months, has l ack of transportation kept you from meetings, work, or from getting things needed for daily living? No 12/15/2024 [facility] Utilities Answer Date Recorded In the past 12 months has th e electric, gas, oil, or water company threatened to shut off services in your home? No 12/15/2024 Depression Answer Date Recor ded PHQ-9 Total Score (max 27) 0 02/23 Housing Stability Answer Date Recorded What is your living situation today? I have a [facility] place to live 12/15/2024 Education Answer Date Recorded What is the highest level of school you have completed or the highest degree you have received? Some college, no degree 10/24/2018 Comments No Sex and Gender Information Value Date Recorded Sex Assigned at Female 03/27/2017 3:30 PM [employer] DIRECTOR Legal Sex Female 10:26 AM [employer] DIRECTOR Gender Identity Female 03/27/2017 3:30 PM [employer] DIRECTOR Sexual Orientation Straight 03/27/2017 3: 30 PM [employer] DIRECTOR Occupation Industry Job Start Date Job End Date Not on file Not on file Not on file Not on file documented as of this encounter Progress Notes * Sondra Ibarra P.T., D.P.T. - 12/15/2024 9:45 AM CDT Physical Therapy Outpatient Treatment Note SUBJECTIVE Patient's Name: Concetta Medina Referring Provider: Carl Delarosa-* Visit Diagnosis: 1. Unsteadiness Gait Disorder Non Orthopedic 2. Deconditioned 3. Pain Hip Right Payor: MEDICARE / Plan: MEDICARE A AND B / Product Type: Medicare / PT Next Certification Date: 11/29/24 Epic Visit Count: 22 Patient comments: Pt reports that back pain is better. She reports that she is feeling better overall. She is agreeable to reducing frequency to 1x/week. OBJECTIVE Pain: no pain today TREATMENT Treatment today consisted of: Therapeutic Exercise and neuromuscular re-education : -Sci-Fit Total body ergometer at level 4 resistance x12 minutes -Back Extension machine 2x15 reps at 110# progressing to 205# -Leg press starting at 30# progressing to 40# -4# resisted hip marching, single leg hip abduction, HS curls. Each 2x10 -Foam: NBOS head turns side/side 2x30, NBOS with small perturbations 2x10 -Reactive balance: falls forward and step forward reactive balance x10 forward bilaterally and x10 sideways bilaterally Home Exercise Program/Education: Continue previous packet provided Patient reports good HEP compliance. Assessment Clinical Impression: Patient is a pleasant 78-year-old female who presents to therapy for continuedrehabilitation for balance and stability after right pelvic fracture on August 25. Patient demonstrates improved steadiness, balance, strength. We will reduce frequency to 1x/week. Patient would benefit from skilled physical therapy to address the previous stated impairments. Functional Goals and Timeframes: PT Goal #1: Patient will ambulate community distances with least restrictive device, with no antalgia in order to progress towards prior level of function PT Goal #1 to be achieved by: 10/30/24 PT Goal #2: Patient will score 13 on 30 seconds [id number] with less than 3/10 pain in right [...] by: 11/29/24 Plan Plan for next session: See if pt got ankle weights, print off new HEP Time Spent with Patient Therapeutic Interventions Neuromuscular Re-Education (min): 15 min Therapeutic Exercise (min): 25 min Time Tracking Total Timed Units (min): 40 min Total Treatment Time (min): 40 min documented in this encounter Plan of Treatment Upcoming Encounters Date Type Department Care Team (Latest Contact Info) Description 01/17/2025 9:15 AM CDT Appointment Department of Radiology, [facility] in [place], [place] [address] [place] [address] Jacklyn Mccarthy APRN, C.N.P., M.S.N. [address] [place] [phone] Discharge Disposition: Home or Self Care 01/17/2025 3:30 PM CDT Clinical Support Department of Rehabilitation Services in [address] [phone] Wilfrid Lincoln Jr., Jayden.O. [address] [place] [phone] Sondra Ibarra P.T., D.P.T. 01/24/2025 1:15 PM CDT Clinical Support Department of Rehabilitation Services in [address] [phone] Wilfrid Lincoln Jr., D.O. [address] [place] [phone] Sondra Ibarra P.T., D.P.TLeida 02/09/2025 10:10 AM CDT Appointment Department of Laboratory Medicine in [address] [phone] Allyn Alfredo M.D. [address] [place] [phone] 02/09/2025 10:40 AM CDT Office Visit Department of Family Medicine, [facility], in [address] [phone] Allyn Alfredo M.D. [address] [place] [phone] Discharge Disposition: Home or Self Care 03/06/2025 8:45 AM CDT Office Visit Department of Orthopedic Surgery in [address] [phone] Cindy Walker D.PLeidaMLeida [address] [place] [phone] Discharge Disposition: Home or Self Care 04/11/2025 4:00 PM [employer] DIRECTOR Telemedicine Department of Sleep Medicine in [place], [place] [address] [place] [phone] Emilee Emanuel APRN, C.N.P., D.N.P., M.S.N. [address] [place] [phone] documented as of this encounter Visit Diagnoses Diagnosis Unsteadiness Gait Disorder Non Orthopedic- Primary Deconditioned Pain Hip Right documented in this encounter Additional Health Concerns Assessment Noted Time PHQ-9 Depression Total Score: 0 02/24/20 23 1:03 PM CDT documented as of this encounter Care Teams Portable Pinch Riveter Relationship Specialty Start Date End Date Allyn Alfredo M.D. [address] [phone] PCP - General Family Medicine 04/05/21 documented as of this encounter
--- OUTSIDE RECORDS SUMMARY | 2024-12-20 15:30 | XMS_ITS | Encounter Summary ---
Author Organization [facility] Address [address] [place] [address] Care Team Providers Care [employer] Rep Name Role Phone Allyn Alfredo M.D. Primary Care Pro vider Reason for Visit * Physical Therapy (Routine) - Canceled Specialty Diagnoses / Procedures Referred By Esther zamorano Referred To Contact Diagnoses Decline Functional Status Pain Leg Bilateral Procedures PT Ongoing treatment Allyn Alfredo M.D. [address] [place] [phone] Phone: tel: fax: [facility] Region Referral ID Status Reason Start Date Expiration Date V isits Requested Visits Authorized [id number] Canceled 12/08/2024 03/10/2026 99 99 Encounter Details Date Type Department Care Team (Late st Contact Info) Description 12/20/2024 3:30 PM CDT Clinical Support Department of Rehabilitation Services in [address] [phone] Allyn Alfredo M.D. [address] [place] [phone] Sondra Ibarra P.T., D.P.T. Decline Functional Status [...] things needed for daily living? No 12/15/2024 [facility] Utilities Answer Date Recorded In the past 12 months has [facility] electric, gas, oil, or water company threatened to shut off services in your home? No 12/15/2024 Depression Answer Date Recor ded PHQ-9 Total Score (max 27) 0 02/23 Housing Stability Answer Date Recorded What is your living situation today? [facility] 12/15/2024 Education Answer Date Recorded What is the highest level of school you have completed or the highest degree you have received? Some college, no degree 10/24/2018 Comments No Sex and Gender Information Value Date Recorded Sex Assigned at Female 03/27/2017 3:30 PM COTTON BALER Legal Sex Female 10:26 AM COTTON BALER Gender Identity Female 03/27/2017 3:30 PM COTTON BALER Sexual Orientation Straight 03/27/2017 3: 30 PM COTTON BALER Occupation Industry Job Start Date Job End Date Not on file Not on file Not on file Not on file documented as of this encounter Progress Notes * Sondra Ibarra P.T., D.P.T. - 12/20/2024 3:30 PM CDT Physical Therapy Outpatient Treatment Note SUBJECTIVE Patient's Name: Concetta Medina Referring Provider: Allyn Begum* Visit Diagnosis: 1. Decline Functional Status [R53.81] 2. Pain Leg Bilateral Payor: MEDICARE / Plan: MEDICARE A AND B / Product Type: Medicare / PT Next Certification Date: 11/29/24 [facility] Visit Count: 23 Patient comments: Pt reports that back pain is better. She reports that she is feeling better overall. She is agreeable to reducing frequency to 1x/week. Patient reports that she does not feel like she could step up a curb without hand support on cane and a car OBJECTIVE Pain: no pain today TREATMENT Treatment today consisted of: Therapeutic Exercise and neuromuscular re-education : -Sci-Fit Total body ergometer at level 4.5 resistance x10 minutes -Step ups: we completed 2x8 step ups with single hand hold, and without hand hold (curb) at 4 inch height. We also ascended our therapy steps and descended without hand hold, this was completed at 4 and 6 height. Lastly. We did use cane to step up and down 6 height. Pt was able to complete this safely and slowly. We have no concerns today that she wouldn't be able to step up a curb safely out in the community. Patient admits she is not as stable when she is in a hurry or not focused on task. -Leg press starting at 40# 2x15 reps -5# standing resisted hip marching, single leg hip abduction, HS curls. Each 2x10 We trialed 5# weight today to determine appropriate weight to be used at home. Patient was able to complete all sets and reps today, but did report more fatigue and LE soreness. -5# seated hip marching and LAQ. Each 2x10 -Standing felipe step overs with 5# ankle weights, slow and controlled Home Exercise Program/Education: Continue previous packet provided Patient reports good HEP compliance. Assessment Clinical Impression: Patient is a pleasant 78-year-old female who presents to therapy for continuedrehabilitation for balance and stability after right pelvic fracture on August 25. Patient demonstrates improved steadiness, balance, strength. We were able to progress lower extremity exercise to use of 5# weight, which patient found challenging. She was able to complete all sets and reps howeverwith good form. We will reduce frequency to 1x/week. Patient [...] Patient will score 13 on 30 seconds [id number] with less than 3/10 pain in right [...] HEP Time Spent with Patient Therapeutic Interventions Therapeutic Exercise (min): 44 min Time Tracking Total Timed Units (min): 44 min Total Treatment Time (min): 44 min documented in this encounter Plan of Treatment Upcoming Encounters Date Type Department Care Team (Latest Contact Info) Description 01/17/2025 9:15 AM CDT Appointment Department of Radiology, [facility], in [place] [address] [place] [phone] Mccarthy, Jacklynilsa Vazquez APRN, C.N.P., M.S.N. [address] [place] [phone] Discharge Disposition: Home or Self Care 01/17/2025 3:30 PM CDT Clinical Support Department of Rehabilitation Services in [address] [phone] Wilfrid Lincoln Jr., D.O. [address] [place] [phone] Sondra Ibarra P.T., D.P.T. 01/24/2025 1:15 PM CDT Clinical Support Department of Rehabilitation Services in [address] [phone] Wilfrid Lincoln Jr., D.O. [address] [place] [phone] Sondra Ibarra P.T., D.P.T. 02/09/2025 10:10 AM CDT Appointment Department of Laboratory Medicine in [address] [phone] Allyn Alfredo M.D. [address] [place] [phone] 02/09/2025 10:40 AM CDT Office Visit Department of Family Medicine, [facility], in [address] [phone] Allyn Alfredo M.D. [address] [place] [phone] Discharge Disposition: Home or Self Care 03/06/2025 8:45 AM CDT Office Visit Department of Orthopedic Surgery in [address] [phone] Cindy Walker D.PLeidaMLeida [address] [place] [phone] Discharge Disposition: Home or Self Care 04/11/2025 4:00 PM COTTON BALER Telemedicine Department of Sleep Medicine in [place], [place] [address] [place] [phone] Emilee Emanuel APRN, C.N.P., D.N.P., M.S.N. [address] [phone] documented as of this encounter Visit Diagnoses Diagnosis Decline Functional Status [R53.81] Pain Leg Bilateral documented in this encounter Additional Health Concerns Assessment Noted Time PHQ-9 Depression Total Score: 0 02/24/20 23 1:03 PM CDT documented as of this encounter Care Teams [employer] Rep Relationship Specialty Start Date End Date Allyn Alfredo M.D. [address] [place] [phone] PCP - General Family Medicine 04/05/21 documented as of this encounter
--- OUTSIDE RECORDS SUMMARY | 2024-12-22 11:00 | XMS_ITS | Encounter Summary ---
Author Organization [facility] Address [address] [place] [address] Care Team Providers Care Product Marketing Coordinator Name Role Phone Allyn Alfredo M.D. Primary Care Pro vider Reason for Referral * Outpatient (Routine) - Authorized Specialty Diagnoses / Procedures Referred By Esther zamorano Referred To Contact Cardiovascular Disease Yuri Mercer M.D. [address] [place] [address] Phone: tel: [facility] Region Referral ID Status Reason Start Date Expiration Date V isits Requested Visits Authorized [id number] Authorized 12/22/2024 06/23/2026 1 1 Reason for Visit * Reason Comments Follow-up * Outpatient (Routine) - Closed Specialty Diagnoses / Procedures Referred By Esther zamorano Referred To Contact Cardiovascular Disease Yuri Mercer M.D. [address] [place] [address] Phone: tel: fax: [facility] Region Referral ID Status Reason Start Date Expiration Date Visits Re quested Visits Authorized [id number] Closed 11/26/2023 05/27/2025 1 1 Encounter Details Date Type Department Care Team (Latest Contact Info) Description 12/22/2024 11:00 AM CDT Office Visit Department of Cardiovascular Diseases in [place], [place] [address] [place] [phone] Yuri Mercer M.D. [address] [place] [address] Atrial Fibrillation Paroxysmal (HCC) (Primary Dx); 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); Senior Care (Current) Anticoagulant Treatment; Chronic Diastolic (Congestive) Heart Failure (HCC); Hypertensive Heart Disease With Heart Failure (HCC) Social History Tobacco Use Types Packs/Day [...] needed for daily living? No 12/15/2024 [facility] Utilities Answer Date Recorded In the past 12 months has th e electric, gas, oil, or water company threatened to shut off services in your home? No 12/15/2024 Depression Answer Date Recor ded PHQ-9 Total Score (max 27) 0 02/23 Housing Stability Answer Date Recorded What is your living situation today? I have a [facility] place to live 12/15/2024 Education Answer Date Recorded What is the highest level of school you have completed or the highest degree you have received? Some college, no degree 10/24/2018 Comments No Sex and Gender Information Value Date Recorded Sex Assigned at Female 03/27/2017 3:30 PM STEMMER MACHINE Legal Sex Female 10:26 AM STEMMER MACHINE Gender Identity Female 03/27/2017 3:30 PM STEMMER MACHINE Sexual Orientation Straight 03/27/2017 3: 30 PM STEMMER MACHINE Occupation Industry Job Start Date Job End Date Not on file Not on file Not on file Not on file documented as of this encounter Last Filed Vital Signs Vital Sign Reading Time Taken Comments Blood Pressure 198/69 12/22/2024 10:59 AM CDT Pulse 71 12/22/2024 10:59 AM CDT Temperature - - Respiratory Rate - - Oxygen Saturation - - Inhaled Oxygen Concentration - - Weight 74.1 kg (163 lb 5.8 oz) 12/22/2024 10:52 AM CDT Height - - Body Mass Index 28.95 11/14/2024 7:00 PM CDT documented in this encounter Progress Notes * Yuri Mercer M.D. - 12/22/2024 11:00 AM CDT SUBJECTIVE CHIEF COMPLAINT/REASON FOR VISIT Chronic hypertension, syncope, paroxysmal atrial fibrillation. HISTORY OF PRESENT ILLNESS Siobhan is a pleasant 79-year-old female from [place], [place]. She is known to me from multiple prior visits over the years. I have followed her for asymptomatic paroxysmal atrial fibrillation and chronic hypertension with labile blood pressure in the context of end-stage renal disease on dialysis. We last met in November for dose adjustment of her antihypertensive medications. At that time, I increased the dose of candesartan to 60 mg daily and added labetalol to her medication regimen. Unfortunately, she presented to the emergency room shortly after with junctional rhythm and dizziness. This was attributed to a combination of amiodarone (rhythm control of atrial fibrillation), diltiazem, and labetalol. The labetalol was discontinued, but she returned to the emergency room the following day with nausea, fluid overload, and continued junctional bradycardia. Amiodarone and diltiazem were held but amiodarone was ultimately resumed. She underwent urgent hemodialysis and also underwent brachiocephalic AV fistula placement. Unfortunately, she suffered a syncopal event on April 13 following a dialysis session in tandem with an increase in candesartan from 16 mg to 32 mg daily. During that hospitalization, she was also noted to have bacteremia (Enterococcus faecalis) that was treated with ampicillin. She had continuedevidence of junctional bradycardia during that hospitalization and the amiodarone was ultimately discontinued with recommendations for an outpatient 30-day monitor. Fortunately, the 30-day monitor showed no concerning rhythm abnormalities with ongoing discontinuation of amiodarone, diltiazem, and labetalol. Along the way, she has had several falls including a nondisplaced pubic fracture that was managed conservatively. She was briefly hospitalized in mid August for a UTI. Most recently, she was hospitalized in November with fluid overload. She was aggressively diuresed and her weight trended down about 10-12 pounds. The patient informs me there has been a rather dramatic improvement in her breathing following those aggressive fluid pulls. She currently does not experience dyspnea with her current activity levels. She likewise does not have anginal chest pain. She is able to sleep flat in bed on a single pillow with the use of CPAP. In this context, I do not elicit paroxysmal nocturnal dyspnea. She reports her swelling has improved with an increase in torsemide in tandem with more aggressive dialysis fluid pulls. She has had no stroke or TIA symptoms. She has had no spontaneous bleeding on Eliquis. The patient does report that Eliquis continues to be her most expensive medication. They are working to transition her to Medicaid but are having some difficulty with this. OBJECTIVE PHYSICAL EXAMINATION Vital Signs: Weight 74.1 kg. Heart rate 74, blood pressure 200/76. General: This is an elderly female sitting comfortably in no acute distress. Eyes: Anicteric. Ears, Nose, and Throat: The mucous membranes are moist. Lungs: Clear to auscultation. Vessels: Bilateral carotid upstrokes normal. The left radial pulse is 4/4 and regular. Right radialpulse is 2/4 and regular. Extremities: Warm without pitting edema. Heart: Central venous pressure appears normal at 45 degrees recumbency. Cardiac auscultation notable for regular rhythm and a soft systolic ejection murmur along the left sternal border. I would grade this 2/6 in maximal intensity. ASSESSMENT / PLAN #1 Paroxysmal atrial fibrillation, largely asymptomatic #2 Elevated [id number] risk factors #3 Chronic anticoagulation with Eliquis #4 Type 2 diabetes #5 End-stage renal disease, on dialysis #6 Chronic hypertension, with labile blood pressure #7 Recurrent hospitalization for pulmonary edema attributed to volume overload (most recently November 2024) PLAN: It was a pleasure to visit with Siobhan and her daughter in followup. She has had a very difficult year with her multiple hospitalizations as noted above. Fortunately, she is actually doing quite well on exam today. She has had substantial improvement in her breathing following her aggressive dialysis session in November with her most recent hospitalization. Her weight dropped about 10-12 pounds and she has maintained this weight loss. Conversely, blood pressure is quite elevated today. I did repeat blood pressure measurements again later in the clinic encounter and systolic blood pressure continued to run in the 200 mmHg range. She is completely asymptomatic at this time. The dilemma here is she is not a candidate for beta yoana therapy or nondihydropyridine calcium channel blockers given her junctional bradycardia and sensitivity to rate control medications. She has prior intolerance to clonidine. Therefore, I am going toprescribe doxazosin 1 mg to be taken p.r.n. for systolic blood pressure greater than 180 mmHg. Thiswill provide her an option at home to hopefully avoid CHF exacerbation or the need to come into theemergency room. I did consider hydralazine and isosorbide dinitrate. However, these medications come with more cumbersome dosing (t.i.d.) as well as the potential for rebound hypertension (particularly with the hydralazine). These medications could certainly be considered in the future, however I would like to trial doxazosin first. We discussed her atrial fibrillation. She has now been off the amiodarone for approximately 6-7 months. She has intermittently been notified by her watch of atrial fibrillation episodes. It is uncertain what her heart rate is during these brief episodes. Should she have recurrence of atrial fibrillation with rapid heart rate, then I think it is worth a retrial of a low dose of beta yoana (Toprol-XL 25 mg daily) with close heart rate monitoring. Alternatively, if heart rates are natively controlled in atrial fibrillation, then we do not have to treat the heart rate. If rate control medications are again complicated by bradycardia and junctional rhythms, then I think the next step would be c atheter ablation. This would hopefully avoid the need for pacemaker and/or AV node ablation. I am very concerned given her recurrent soft tissue skin infections as well as bloodstream infections and the risk for device-related infection. Therefore, I would favor the above more conservative strategyas first-line. I have asked Siobhan to provide me an update on blood pressure trends at home over the coming weeks and how often she is using the doxazosin. Otherwise, I will make arrangements for a return visit in 6months, but she is certainly welcome back sooner should new signs or symptoms warrant. Yuri Mercer M.D. CT CT Job ID: [id number]/mb documented in this encounter Plan of Treatment Upcoming Encounters Date Type Department Care Team (Latest Contact Info) Description 01/17/2025 9:15 AM CDT Appointment Department of Radiology, [facility] in [place], [place] [address] [place] [address] Jacklyn Mccarthy, ANU, C.N.P., M.S.N. [address] [place] [phone] Discharge Disposition: Home or Self Care 01/17/2025 3:30 PM CDT Clinical Support Department of Rehabilitation Services in [address] [phone] Wilfrid Lincoln Jr., D.O. [address] [place] [phone] Sondra Ibarra P.T., D.P.T. 01/24/2025 1:15 PM CDT Clinical Support Department of Rehabilitation Services in [address] [phone] Wilfrid Lincoln Jr., D.OLeida [address] [place] [phone] Sondra Ibarra P.T., D.P.T. 02/09/2025 10:10 AM CDT Appointment Department of Laboratory Medicine in [address] [phone] Allyn Alfredo M.D. [address] [place] [phone] 02/09/2025 10:40 AM CDT Office Visit Department of Family Medicine, [facility], in [address] [phone] Allyn Alfredo M.D. [address] [place] [phone] Discharge Disposition: Home or Self Care 03/06/2025 8:45 AM CDT Office Visit Department of Orthopedic Surgery in [address] [phone] Cindy Walker D.PLeidaMLeida [address] [place] [address] Discharge Disposition: Home or Self Care 04/11/2025 4:00 PM STEMMER MACHINE Telemedicine Department of Sleep Medicine in [place], [place] [address] [place] [phone] Emilee Emanuel APRN, C.N.P., D.N.P., M.S.N. [address] [place] [phone] Scheduled Referrals Name Type Priority Associated Diagnoses Order Schedule Cardiovascular Disease office visit (clinic) [facility] Region; General Outpatient Referral Routine Expected: 06/24/2025, Expires: 03/24/2026 documented as of this encounter Visit Diagnoses Diagnosis Atrial Fibrillation Paroxysmal (HCC)- Primary 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) Move Coordinator (Current) Anticoagulant Treatment Chronic Diastolic (Congestive) Heart Failure (HCC) Hypertensive Heart Disease With Heart Failure (HCC) documented in this encounter Additional Health Concerns Assessment Noted Time PHQ-9 Depression Total Score: 0 02/24/20 23 1:03 PM CDT documented as of this encounter Care Teams Product Marketing Coordinator Relationship Specialty Start Date End Date Allyn Alfredo M.D. [address] [place] [phone] PCP - General Family Medicine 04/05/21 documented as of this encounter
--- OUTSIDE RECORDS SUMMARY | 2025-01-03 10:30 | XMS_ITS | Encounter Summary ---
Author Organization [facility] Address [address] [place] [address] Care Team Providers Care Pipe Installer Name Role Phone Allyn Alfredo M.D. Primary Care Pro vider Reason for Visit * Physical Therapy (Routine) - Canceled Specialty Diagnoses / Procedures Referred By Esther zamorano Referred To Contact Diagnoses Decline Functional Status Pain Leg Bilateral Procedures PT Ongoing treatment Allyn Alfredo M.D. [address] [place] [phone] Phone: tel: fax: [facility] Region Referral ID Status Reason Start Date Expiration Date V isits Requested Visits Authorized [id number] Canceled 12/08/2024 03/10/2026 99 99 Encounter Details Date Type Department Care Team (Late st Contact Info) Description 01/03/2025 10:30 AM CDT Clinical Support Department of Rehabilitation Services in [address] [phone] Allyn Alfredo M.D. [address] [place] [phone] Sondra Ibarra P.T., D.P.T. Decline Functional [...] things needed for daily living? No 12/15/2024 [facility] Utilities Answer Date Recorded In the past 12 months has [facility] electric, gas, oil, or water company threatened to shut off services in your home? No 12/15/2024 Depression Answer Date Recor ded PHQ-9 Total Score (max 27) 0 02/23 Housing Stability Answer Date Recorded What is your living situation today? [facility] 12/15/2024 Education Answer Date Recorded What is the highest level of school you have completed or the highest degree you have received? Some college, no degree 10/24/2018 Comments No Sex and Gender Information Value Date Recorded Sex Assigned at Female 03/27/2017 3:30 PM ATOMIC WELDER Legal Sex Female 10:26 AM ATOMIC WELDER Gender Identity Female 03/27/2017 3:30 PM ATOMIC WELDER Sexual Orientation Straight 03/27/2017 3: 30 PM ATOMIC WELDER Occupation Industry Job Start Date Job End Date Not on file Not on file Not on file Not on file documented as of this encounter Progress Notes * Sondra Ibarra P.T., D.P.T. - 01/03/2025 10:30 AM CDT Physical Therapy Outpatient Treatment Note SUBJECTIVE Patient's Name: Concetta Medina Referring Provider: Allyn Begum* Visit Diagnosis: 1. Decline Functional Status [R53.81] 2. Pain Leg Bilateral Payor: MEDICARE / Plan: MEDICARE A AND B / Product Type: Medicare / PT Next Certification Date: 11/29/24 Epic Visit Count: 24 Patient comments: Pt reports she is doing well. Her balance and stability have made great progress.She is tolerating being seen 1x/week. She does complain of right shoulder pain. She did mention this to Dr. Lincoln at Dialysis. He placed an order for PT to address shoulder pain. We will evaluate her next week. OBJECTIVE Pain: right shoulder pain TREATMENT Treatment today consisted of: Therapeutic Exercise and neuromuscular re-education : -Sci-Fit Total body ergometer at level 4.5 resistance x10 minutes -Leg press starting at 30# x15, 40# 2x15 -Back extension machine 95# x15 reps, 110# 2x15 -Review of shoulder exercises: patient to complete these for the next week and bring to PT Eval apt, with the goal of informing therapist if these exercises helped, or if they were painful: ------Supine shoulder AAROM exercises: using heating pad x15 minutes, then complete the following: cane assisted supine IR/ER, supine cane assisted flexion, supine cane assisted scaption. These will be completed for 15 reps morning and evening. Home Exercise Program/Education: Continue previous packet provided Added: -Supine shoulder AAROM exercises: using heating pad x15 minutes, then complete the following: cane assisted supine IR/ER, supine cane assisted flexion, supine cane assisted scaption. These will be completed for 15 reps morning and evening. Patient reports good HEP compliance. Assessment Clinical Impression: Patient is a pleasant 79-year-old female who presents to therapy for continuedrehabilitation for balance and stability after right pelvic fracture on August 25. Patient demonstrates improved steadiness, balance, strength. Patient is tolerating reduced frequency to 1x/week well. We provided patient with several shoulder exercises to be completed before shoulder evaluation next week to get started on ROM. Patient would benefit from skilled physical therapy to address the previous stated balance and stability impairments. Patient is nearing discharge for balance/stability. Functional Goals and Timeframes: PT Goal #1: Patient will ambulate community distances with least restrictive device, with no antalgia in order to progress towards prior level of function PT Goal #1 to be achieved by: 10/30/24 PT Goal #2: Patient will score 13 on 30 seconds [id number] with less than 3/10 pain in right [...] with Patient Therapeutic Interventions Therapeutic Exercise (min): 39 min Time Tracking Total Timed Units (min): 39 min Total Treatment Time (min): 39 min documented in this encounter Plan of Treatment Upcoming Encounters Date Type Department Care Team (Latest Contact Info) Description 01/17/2025 9:15 AM CDT Appointment Department of Radiology, [facility], in [place], [place] [address] [place] [phone] Jacklyn Mccarthy, ANU, C.N.P., M.S.N. [address] [place] [phone] Discharge Disposition: Home or Self Care 01/17/2025 3:30 PM CDT Clinical Support Department of Rehabilitation Services in [address] [phone] Wilfrid Lincoln Jr., D.OLeida [address] [place] [phone] Sondra Ibarra P.T., D.P.T. 01/24/2025 1:15 PM CDT Clinical Support Department of Rehabilitation Services in [address] [phone] Wilfrid Lincoln Jr., D.O. [address] [place] [phone] Sondra Ibarra P.T., D.P.T. 02/09/2025 10:10 AM CDT Appointment Department of Laboratory Medicine in [address] [phone] Allyn Alfredo M.D. [address] [place] [phone] 02/09/2025 10:40 AM CDT Office Visit Department of Family Medicine, [facility], in [address] [phone] Allyn Alfredo M.D. [address] [place] [phone] Discharge Disposition: Home or Self Care 03/06/2025 8:45 AM CDT Office Visit Department of Orthopedic Surgery in [address] [phone] Cindy Walker D.PLeidaM. [address] [place] [phone] Discharge Disposition: Home or Self Care 04/11/2025 4:00 PM ATOMIC WELDER Telemedicine Department of Sleep Medicine in [place], [place] [address] [phone] Emilee Emanuel APRN, C.N.P., D.N.P., M.S.N. [address] [phone] documented as of this encounter Visit Diagnoses Diagnosis Decline Functional Status [R53.81] Pain Leg Bilateral documented in this encounter Additional Health Concerns Assessment Noted Time PHQ-9 Depression Total Score: 0 02/24/20 23 1:03 PM CDT documented as of this encounter Care Teams Pipe Installer Relationship Specialty Start Date End Date Allyn Alfredo M.D. [address] [place] [phone] PCP - General Family Medicine 04/05/21 documented as of this encounter
--- OUTSIDE RECORDS SUMMARY | 2025-01-12 10:15 | XMS_ITS | Encounter Summary ---
Author Organization [facility] Address [address] [place] [address] Care Team Providers Care Community Artist Name Role Phone Allyn Alfredo M.D. Primary Care Pro vider Reason for Referral * Physical Therapy (Routine) - Authorized Specialty Diagnoses / Procedures Referred By Contac t Referred To Contact Diagnoses Pain Shoulder Right Procedures PT Ongoing treatment Wilfrid Lincoln Jr., D.O. 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 [address] [place] [address] Phone: tel: fax: [facility] Region Referral ID Status Reason Start Date Expiration Date V isits Requested Visits Authorized [id number] Authorized 12/26/2024 03/28/2026 99 99 Encounter Details Date Type Department Care Team (Latest Contact Info) Description 01/12/2025 10:15 AM CDT Comprehensive Visit Department of Rehabilitation Services in [address] [place] [phone] Wilfrid Lincoln Jr., D.O. [address] [place] [address] Sondra Ibarra P.T., D.P.T. Pain Shoulder Right (Primary Dx); 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); Unsteadiness Gait Disorder Non Orthopedic Social History Tobacco Use Types Packs/Day Years [...] things needed for daily living? No 12/15/2024 [facility] Utilities Answer Date Recorded In the past 12 months has th e electric, gas, oil, or water company threatened to shut off services in your home? No 12/15/2024 Depression Answer Date Recor ded PHQ-9 Total Score (max 27) 0 02/23 Housing Stability Answer Date Recorded What is your living situation today? I have a [facility] place to live 12/15/2024 Education Answer Date Recorded What is the highest level of school you have completed or the highest degree you have received? Some college, no degree 10/24/2018 Comments No Sex and Gender Information Value Date Recorded Sex Assigned at Female 03/27/2017 3:30 PM TRACK REPAIR WORKER Legal Sex Female 10:26 AM TRACK REPAIR WORKER Gender Identity Female 03/27/2017 3:30 PM TRACK REPAIR WORKER Sexual Orientation Straight 03/27/2017 3: 30 PM TRACK REPAIR WORKER Occupation Industry Job Start Date Job End Date Not on file Not on file Not on file Not on file documented as of this encounter Consult Notes * Sondra Ibarra P.T., D.P.T. - 01/12/2025 10:15 AM CDT Physical Therapy Outpatient Evaluation/Treatment By co-signing this note, the provider certifies the therapy being provided to this patient is reasonable and necessary for the diagnosis or treatment of this patient. SUBJECTIVE Patient's Name: Concetta Medina Referring Provider: Wilfrid Lincoln Jr., * Visit Diagnosis: 1. Pain Shoulder Right 2. 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) 3. Unsteadiness Gait Disorder Non Orthopedic Reason for Referral: PT eval and treatment Onset Date: 12/26/24 Payor: MEDICARE / Plan: MEDICARE A AND B / Product Type: Medicare / [employer] Visit Count: 1 PERTINENT MEDICAL / SURGICAL HISTORY: Problem List[1] Surgical History[2] Patient presents to outpatient physical therapy for evaluation of symptoms including: Right shoulder pain Unsteadiness Overall patient reports status is worsening . History of Present Illness:Patient is a pleasant 79 year old female who presents to therapy for evaluation of right shoulder pain. Patient was referred to therapy by her dialysis physician, Dr. Lincoln. Patient is s/p ligation and excision of arteriovenous fistula and graft of right upper extremity, resection of pseudoaneurysms. Patient is complaining of right upper extremity soreness today dated assisted she does have an ultrasound scheduled for next Thursday to ensure that her fistula site isclear of any blood clots or abnormalities. Self patient reports her right shoulder pain has been ongoing for the last month or so. She reports the most pain in the mornings when she is in bed playingon her phone. She reports that she wakes up in the early hours in the morning and we will set on her phone for several hours before she has already get out of bed. Her right shoulder has been bothersome holding her phone above her face while supine in bed. Patient reports that she has not tried sitting up in bed resting against her head forward, she is typically supine when symptoms occur. Aggravating Factors: Using her phone in the morning while supine, dressing (getting bra and shirt on), ADLs including dishes or washing hair, heating pad made symptoms worse Relieving Factors: Rest, ice Previous Treatments: None Prior Function/Occupational Profile: Retired Patient goals: To reduce right shoulder pain OBJECTIVE REVIEW OF SYSTEMS History obtained from chart review PHYSICAL EXAM Pain: Sharper right shoulder pain with elevation. Chronic achy throb to right arm near surgical site of fistula excision. Patient presents with FOTO functional status score of 41 (MCII: 23 and MDC: 4) indicating general function at stage 2. The risk adjusted functional status score is 40. Patient is predicted to have 16points of functional status change in 15 visits over 66 days based on normative data. Palpation: Tenderness to right arm near surgical site Range of Motion: Left Right Shoulder Flexion 0-170 PROM: 175 PROM: 155 pain Shoulder Extension 0-60 PROM: 45 PROM: 45 Shoulder Abduction 0-140 PROM: 165 PROM: 145 pain Shoulder Internal Rotation 0-70 PROM: 65 PROM: 50 some soreness Shoulder External Rotation 0-90 PROM: 75 PROM: 45 guarding and pain Strength: Left Right Shoulder Flexion: 4/5 Can't even attempt due to pain Shoulder Extension: 4+/5 4/5 Shoulder Internal Rotation: 4+/5 4/5 Shoulder External Rotation: 4/5 3+/5 pain Bicep Strength 4+/5 4+/5 Joint Mobility: 3/6 normal mobility, but tender on right side Special Tests: We will reassess after patient has ultrasound next week. TREATMENT Treatment today consisted of: Therapeutic Exercise: -Gentle passive range of motion today -We will hold off on HEP until patient gets ultrasound next week and confirms negative Home Exercise Program/Education: -Holding until ultrasound Assessment Clinical Impression: Patient presents to physical therapy with signs and symptoms consistent with right shoulder pain. Impairments: decreased A/PROM, pain, decreased strength, tenderness to palpation Functional deficits: difficulty completing tube coverer, dressing, and bathing are painful and challenging. Rehab Potential: Patient has Good potential to achieve established physical therapy goals within the time frame outlined below, provided active participation in the physical therapy treatment plan and home program. Comorbid Conditions: Other (Comment) (Refer to EMR) Personal Factors: Age, Balance impairment, Sedentary lifestyle, Safety awareness, History of falls Clinical Presentation: Evolving Examination elements: 3 Clinical Decision Making: Moderate complexity clinical decision making Equipment Vendor - PT: Walker and cane - pt owns Functional Goals and Timeframes: PT Outpatient Goals PT Goal #1: Patient will improve right shoulder passive elevation to 160?? without pain in order toprogress towards prior level of function PT Goal #1 to be achieved by: 03/14/25 PT Goal #2: Patient will improve right shoulder active elevation to 180?? without pain in order to progress towards prior level of function PT Goal #2 to be achieved by: 04/13/25 PT Goal #3: Patient will improve right shoulder external rotation and flexion strength to 4+/5 without pain in order to progress towards prior level of function PT Goal #3 to be achieved by: 04/13/25 PT Goal #4: Patient will be independent compliant with home exercise program in order to progress towards prior level of function PT Goal #4 to be achieved by: 02/11/25 Plan Patient was educated regarding evaluative findings, [...] based upon the patient's response to treatment. Physical Therapy Attestation Statement: Patient agrees with the plan of care and goals. Treatment Plan: Plan: Plan of care initiated Start of Plan of Care: 01/12/2025 PT Next Certification Date: 04/13/25 Number of Visits:20 visits PT Duration: 90 days PT Frequency: PT Frequency: 1 time per week Treatment interventions may include: Treatment/Interventions: Therapeutic exercise, Therapeutic functional activity, Neuromuscular re-education, Manual therapy, Gait training, Therapeutic modalities as needed Plan for next session: Print off shoulder and AM stretching routine in bed, review US results Time Spent with Patient Evaluations PT Eval - Mod Complexity: 40 min Time Tracking Total Treatment Time (min): 40 min [1] Patient Active Problem List Diagnosis Cancer Breast Personal History 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) Hypertensive Chronic Kidney Disease With Stage 1 Through Stage 4 Chronic Kidney Disease, Or Unspecified Chronic Kidney Disease Chronic Kidney Disease Stage 5 Glomerular Filtration Rate Less Than 15 (HCC) Diabetes Mellitus Type 2 With Diabetic Neuropathy (HCC) Anemia Of Chronic Renal Failure Carpal Tunnel Syndrome Restless Leg Syndrome Mononeuritis Meniere's Disease Hyperlipidemia Hypertensive Chronic Kidney Disease With Stage 5 Chronic Kidney Disease Or End Stage Renal Disease (HCC) Apnea Sleep Obstructive Periodic Limb Movement Disorder Smoking Tobacco Use Personal History Cataract Senile Nuclear Sclerosis Right Anemia Of Chronic Renal Disease Radiculopathy Lumbar Osteodystrophy Renal Hyperparathyroidism Renal Secondary (HCC) Pain Generalized Abdominal Infarction Spleen Atrial Fibrillation Paroxysmal (HCC) Hemorrhage Vitreous Left (HCC) Hemodialysis Status Congestive Heart Failure (HCC) Bradycardia Chronic Right Heart Failure (HCC) Retirement (Current) Anticoagulant Treatment Pain Leg Bilateral Atherosclerosis Renal Artery Unspecified Atherosclerosis Of [place] Arteries Of Extremities Bilateral Legs Pulmonary Nodule Computed Tomography Indeterminate Bacteremia Complication Dialysis Fistula Initial Carpal Tunnel Syndrome Bilateral Urinary Tract Infection Site Not Specified Weakness General Shortness Of Breath Chronic Diastolic (Congestive) Heart Failure (HCC) Hypertensive Heart Disease With Heart Failure (HCC) Pain Shoulder Right Decline Functional Status [R53.81] Unsteadiness Gait Disorder Non Orthopedic [2] Past Surgical History: Procedure Laterality Date BREAST SURGERY CREATION FISTULA BRACHIOCEPHALIC ARTERIOVENOUS Right 03/10/2024 Procedure: CREATION FISTULA BRACHIOCEPHALIC ARTERIOVENOUS.; Surgeon: Cristhian Grant M.B., Ch.B., Ph.D.; Location: [facility] OR CREATION FISTULA RADIOCEPHALIC ARTERIOVENOUS Right 07/16/2023 Procedure: CREATION FISTULA RADIOCEPHALIC ARTERIOVENOUS.; Surgeon: Cristhian Grant M.B., Ch.B., Ph.D.; Location: [facility] OR EXTRACTION CATARACT WITH INSERTION INTRAOCULAR LENS Right 10/26/2017 Procedure: EXTRACTION CATARACT WITH INSERTION INTRAOCULAR LENS, right eye; Surgeon: Lalo Carroll M.D.; Location: [facility] OR EXTRACTION CATARACT WITH INSERTION INTRAOCULAR LENS Left 11/09/2017 Procedure: EXTRACTION CATARACT WITH INSERTION INTRAOCULAR LENS, left eye; Surgeon: Ayleen Carroll M.D.; Location: [facility] OR FISTULOGRAM UPPER EXTREMITY WITH OR WITHOUT INTERVENTION Right 06/02/2024 Procedure: IR Fistulagram; Surgeon: Crsithian Grant M.B., Ch.B., Ph.D.; Location: [facility] OR HYSTERECTOMY 1988 also removed ovaries LAPAROSCOPIC INSERTION DIALYSIS CATHETER PERITONEAL N/A 03/16/2020 Procedure: LAPAROSCOPIC INSERTION DIALYSIS CATHETER PERITONEAL., Omentopexy; Surgeon: Christine Warren Jr., M.D.; Location: [facility] LIGATION BRANCH VEINS UPPER EXTREMITY Right 06/02/2024 Procedure: LIGATION BRANCH VEINS UPPER EXTREMITY; Surgeon: Cristhian Grant M.B., Ch.B., Ph.D.; Location: [facility] LIGATION/EXCISION ARTERIOVENOUS FISTULA/GRAFT UPPER EXTREMITY Right 11/01/2024 Procedure: LIGATION/EXCISION ARTERIOVENOUS FISTULA/GRAFT UPPER EXTREMITY, RESECTION OF PSEUDOANEURYSMS.; Surgeon: Rika Oliveros M.D.; Location: [facility] OR OOPHORECTOMY, PARTIAL OR TOTAL, UNILATERAL OR BILATERAL;.. 1987 REMOVAL PERITONEAL DIALYSIS CATHETER N/A 04/16/2023 Procedure: REMOVAL PERITONEAL DIALYSIS CATHETER.; Surgeon: Christine Warren Jr., M.D.; Location: [facility] OR SPINE SURGERY 2021 TONSILLECTOMY N/A 1951 Tonsillectomy TONSILLECTOMY when a child Cosigned by Wilfrid Lincoln Jr., Jayden.Anay at 01/12/2025 5:30 PM CDT documented in this encounter Plan of Treatment Upcoming Encounters Date Type Department Care Team (Latest Contact Info) Description 01/17/2025 9:15 AM CDT Appointment Department of Radiology, [facility], in [place], [place] [address] [place] [phone] Jacklyn Mccarthy APRN, C.N.P., M.S.N. [address] [place] [phone] Discharge Disposition: Home or Self Care 01/17/2025 3:30 PM CDT Clinical Support Department of Rehabilitation Services in [address] [phone] Wilfrid Lincoln Jr., D.O. [address] [place] [phone] Sondra Ibarra P.T., D.P.TLeida 01/24/2025 1:15 PM CDT Clinical Support Department of Rehabilitation Services in [address] [phone] Wilfrid Lincoln Jr., D.O. [address] [place] [phone] Sondra Ibarra P.T., D.P.T. 02/09/2025 10:10 AM CDT Appointment Department of Laboratory Medicine in [address] [phone] Allyn Alfredo M.D. [address] [place] [phone] 02/09/2025 10:40 AM CDT Office Visit Department of Family Medicine, [facility], in [address] [phone] Allyn Alfredo M.D. [address] [place] [phone] Discharge Disposition: Home or Self Care 03/06/2025 8:45 AM CDT Office Visit Department of Orthopedic Surgery in [address] [phone] Cindy Walker D.P.M. [address] [place] [address] Discharge Disposition: Home or Self Care 04/11/2025 4:00 PM TRACK REPAIR WORKER Telemedicine Department of Sleep Medicine in [place], [place] [address] [phone] Emilee Emanuel APRN, C.N.P., D.N.P., M.S.N. [address] [phone] documented as of this encounter Visit Diagnoses Diagnosis Pain Shoulder Right- Primary 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) Unsteadiness Gait Disorder Non Orthopedic documented in this encounter Additional Health Concerns Assessment Noted Time PHQ-9 Depression Total Score: 0 02/24/20 23 1:03 PM CDT documented as of this encounter Care Teams Community Artist Relationship Specialty Start Date End Date Allyn Alfredo M.D. [address] [place] [phone] PCP - General Family Medicine 04/05/21 documented as of this encounter
--- OUTSIDE RECORDS SUMMARY | 2025-01-12 11:15 | XMS_ITS | Encounter Summary ---
Author Organization [facility] Address [address] [place] [address] Care Team Providers Care Telemarketing Representative Name Role Phone Allyn Alfredo M.D. Primary Care Pro vider Reason for Visit * Physical Therapy (Routine) - Canceled Specialty Diagnoses / Procedures Referred By Esther zamorano Referred To Contact Diagnoses Decline Functional Status Pain Leg Bilateral Procedures PT Ongoing treatment Allyn Alfredo M.D. [address] [place] [phone] Phone: tel: fax: [facility] Region Referral ID Status Reason Start Date Expiration Date V isits Requested Visits Authorized [id number] Canceled 12/08/2024 03/10/2026 99 99 Encounter Details Date Type Department Care Team (Late st Contact Info) Description 01/12/2025 11:15 AM CDT Clinical Support Department of Rehabilitation Services in [address] [phone] Allyn Alfredo M.D. [address] [place] [phone] Sondra Ibarra P.T., D.P.T. Decline Functional [...] things needed for daily living? No 12/15/2024 [facility] Utilities Answer Date Recorded In the past 12 months has [facility] electric, gas, oil, or water company threatened to shut off services in your home? No 12/15/2024 Depression Answer Date Recor ded PHQ-9 Total Score (max 27) 0 02/23 Housing Stability Answer Date Recorded What is your living situation today? [facility] 12/15/2024 Education Answer Date Recorded What is the highest level of school you have completed or the highest degree you have received? Some college, no degree 10/24/2018 Comments No Sex and Gender Information Value Date Recorded Sex Assigned at Female 03/27/2017 3:30 PM INDUSTRIAL HYGIENE TECHNICIAN Legal Sex Female 10:26 AM INDUSTRIAL HYGIENE TECHNICIAN Gender Identity Female 03/27/2017 3:30 PM INDUSTRIAL HYGIENE TECHNICIAN Sexual Orientation Straight 03/27/2017 3: 30 PM INDUSTRIAL HYGIENE TECHNICIAN Occupation Industry Job Start Date Job End Date Not on file Not on file Not on file Not on file documented as of this encounter Progress Notes * Sondra Ibarra P.T., D.P.T. - 01/12/2025 11:15 AM CDT Physical Therapy Outpatient Treatment Note SUBJECTIVE Patient's Name: Concetta Medina Referring Provider: Allyn Begum* Visit Diagnosis: 1. Decline Functional Status [R53.81] 2. Pain Leg Bilateral Payor: MEDICARE / Plan: MEDICARE A AND B / Product Type: Medicare / PT Next Certification Date: 11/29/24 Epic Visit Count: 25 Patient comments: Patient feels as though she has made good progress in physical therapy. She no longer has hip pain. She feels steadier on her feet. She uses a SPC outside of the home, no AD while in the home. She is pleased with the progress made thus far. She is ready and agreeable to discharge this episode of care, and will continue PT rehab for LE strength on her own at home. OBJECTIVE Pain: right shoulder pain 30 seconds [id number]: 13 stands without upper extremity support from treatment table TREATMENT Treatment today consisted of: Therapeutic Exercise and neuromuscular re-education : We spent time reviewing patient's progress through therapy, her goals, and her current symptoms. Ingeneral patient feels more stable on her feet. She only feels unsteady when she 1st stands up afterprolonged sitting. We discussed mild dizziness might be due to orthostatic hypotension. We also discussed that patient may feel more unsteady on dialysis days compared to non dialysis days. We encouraged patient to wait for 10 seconds upon standing to let her dizziness returned to her baseline before walking and moving. We reviewed all home exercises today. Patient was provided with a set of 2 lbankle weights to complete lower extremity strengthening while at home. Exercises are included below. We reviewed these today. Home Exercise Program/Education: Access Code: [email or web address] URL: [email or web address] Date: 01/12/2025 Prepared by: VIKTORIA Dominguez [place] Exercises - Seated Long Arc Quad with Ankle Weight - Seated Hip Flexion March with Ankle Weights - Standing March with Counter Support - Standing Knee Flexion with Ankle Weights and Counter Support - Standing Hip Abduction with Counter Support Patient reports good HEP compliance. Assessment Clinical Impression: Patient is a pleasant 79-year-old female who presents to therapy for continuedrehabilitation for balance and stability after right pelvic fracture on August 25. Patient demonstrates improved steadiness, balance, strength. Patient has made great progress since starting physical therapy. She has met all of her goals. Patient is ready for physical therapy discharge from her hip fracture episode of care. Patient is agreeable to this plan. Comorbid Conditions: Other (Comment) (Refer to EMR) Progress: All PT goals achieved, Progressing toward goals, Improving as expected Functional Goals and Timeframes: PT Goal #1: Patient will ambulate community distances with least restrictive device, with no antalgia in order to progress towards prior level of function PT Goal #1 to be achieved by: 10/30/24 PT Goal #1 Status: Achieved PT Goal #2: Patient will score 13 on 30 seconds [id number] with less than 3/10 pain in right hip in order to progress towards prior level of function (Patient score 13 in 29.8 seconds) PT Goal #2 to be achieved by: 10/30/24 PT Goal #3: Patient will be independent compliant with home exercise program in order to progress towards prior level of function PT Goal #3 to be achieved by: 09/29/24 PT Goal #3 Status: Achieved PT Goal #4: Patient will score 40/56 on the [place] balance score her to reduce risk of falls PT Goal #4 to be achieved by: 11/29/24 PT Goal #4 Status: Achieved Plan Physical Therapy Attestation Statement: Patient agrees with the plan of care and goals. Plan: Discontinue PT Time Spent with Patient Therapeutic Interventions Therapeutic Exercise (min): 30 min Time Tracking Total Timed Units (min): 30 min Total Treatment Time (min): 30 min documented in this encounter Plan of Treatment Upcoming Encounters Date Type Department Care Team (Latest Contact Info) Description 01/17/2025 9:15 AM CDT Appointment Department of Radiology, [facility], in [place], [place] [address] [place] [phone] Jacklyn Mccarthy APRN, C.N.P., M.S.N. [address] [place] [phone] Discharge Disposition: Home or Self Care 01/17/2025 3:30 PM CDT Clinical Support Department of Rehabilitation Services in [address] [phone] Wilfrid Lincoln Jr., D.O. [address] [place] [phone] Sondra Ibarra P.T., D.P.T. 01/24/2025 1:15 PM CDT Clinical Support Department of Rehabilitation Services in [address] [phone] Wilfrid Lincoln Jr., D.O. [address] [place] [phone] Sondra Ibarra P.T., D.P.T. 02/09/2025 10:10 AM CDT Appointment Department of Laboratory Medicine in [address] [phone] Allyn Alfredo M.D. [address] [place] [phone] 02/09/2025 10:40 AM CDT Office Visit Department of Family Medicine, [facility], in [address] [phone] Allyn Alfredo M.D. [address] [place] [phone] Discharge Disposition: Home or Self Care 03/06/2025 8:45 AM CDT Office Visit Department of Orthopedic Surgery in [address] [phone] Cindy Walker D.P.MLeida [address] [facility] [place] [phone] Discharge Disposition: Home or Self Care 04/11/2025 4:00 PM INDUSTRIAL HYGIENE TECHNICIAN Telemedicine Department of Sleep Medicine in [place], [place] [address] [phone] Emilee Emanuel APRN, C.N.P., D.N.P., M.S.N. [address] [phone] documented as of this encounter Visit Diagnoses Diagnosis Decline Functional Status [R53.81] Pain Leg Bilateral documented in this encounter Additional Health Concerns Assessment Noted Time PHQ-9 Depression Total Score: 0 02/24/20 23 1:03 PM CDT documented as of this encounter Care Teams Telemarketing Representative Relationship Specialty Start Date End Date Allyn Alfredo M.D. [address] [place] [phone] PCP - General Family Medicine 04/05/21 documented as of this encounter
[2025-01-16] VITALS (45 sets, daily range): BP systolic 167–205; BP diastolic 68–126; PULSE 74–94; RESP 9–26; TEMP 36.4; O2SAT 87–95; BMI 28.3
--- NOTE | 2025-01-16 | CRLHL7_ITS ---
For Patients: As a result of the Century Cures Act, medical imaging exams and procedure reports are released immediately into your electronic medical record. You may view this report before your referring provider. If you have questions, please contact your health care provider. Indication: Stroke code. Technique: Noncontrast CT images of the brain. Comparison: None. Findings: Mild diffuse cerebral volume loss. No mass effect or midline shift. Cha-white differentiation is maintained. No acute intracranial hemorrhage or pathologic extra-axial fluid collection. Suggested mild chronic microvascular ischemic changes. Intracranial atherosclerotic calcifications. Thinning of the ocular lenses. The calvarium is intact. Minimal paranasal sinus mucosal thickening. Mastoid air cells are clear. Impression: No acute intracranial hemorrhage or mass effect. Please note that all CT scans at this facility use dose modulation, iterative reconstruction, and/or weight-based dosing when appropriate to reduce radiation dose to as low as reasonably achievable. Dictated by Víctor Pollack MD @ 01/16/2025 2:12:56 PM (Electronically Signed)
--- OUTSIDE RECORDS SUMMARY | 2025-01-16 13:53 | XMS_ITS | Clinical Summary ---
Author Organization [facility] Address [address] [place] [address] Care Team Providers Care Firer Diesel Locomotive Name Role Phone Gavi Tong Unavailable Allyn Alfredo MD Primary Care Provi kristen Allergies Active Allergy Reactions Criticality Noted Date Comments Atorvastatin 01/24/2019 Didn't feel good on it Clonidine 01/24/2019 [place] like BP was not controlled Penicillins 01/24/2019 Unsure (tolerated Ancef before) Medications torsemide (DEMADEX) 10 MG tablet Take 10 mg by mouth 2 times daily Active calcium acetate (PHOSLO) 667 MG CAPS capsule Take 667 mg by mouth 3 times daily (with meals) Active gabapentin (NEURONTIN) 100 MG capsule Take 100 mg by mouth 3 times daily Active allopurinol (ZYLOPRIM) 100 MG tablet Take 100 mg by mouth daily Active carvedilol (COREG) 25 MG tablet Take 25 mg by mouth 2 times daily (with meals) Active pravastatin (PRAVACHOL) 20 MG tablet Take 20 mg by mouth daily Active insulin glargine (BASAGLAR KWIKPEN) 100 UNIT/ML pen Inject 10 Units Subcutaneous At Bedtime Active ferrous fumarate 65 mg, akutan. FE,-Vitamin C 125 mg (VITRON C) 65-125 MG TABS tablet Take 1 tablet by mouth daily Active glipiZIDE (GLUCOTROL) 5 MG tablet Take 5 mg by mouth daily Active fish oil-omega-3 fatty acids 1000 MG capsule Take 1 g by mouth 2 times daily Active aspirin 81 MG EC tabletIndicatio ns:S/P lumbar fusion Take 1 tablet (81 mg) by mouth daily 1 tablet 9 Active oxyCODONE (ROXICODONE) 5 MG tabletIndicatio ns:S/P lumbar fusion Take 1 tablet (5 mg) by mouth every 4 hours as needed for moderate to severe pain 42 tablet 9 Active Active Problems Problem Noted Date Diagnosed Date S/P lumbar fusion 02/04/2019 Immunizations Immunization Administration Dates Next Due Influenza (High Dose) Trivalent,PF (Fluzone) Family History Medical History Relation Comments Diabetes [...] on file Legal Sex Female 4:15 AM 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 Gender Identity Not on file Sexual Orientation Not on file Last Filed Vital Signs Vital Sign Reading Time Taken Comments Blood Pressure 143/59 02/07/2019 11:08 AM CDT Pulse 66 02/07/2019 11:08 AM CDT Temperature 36.6 C (97.8 F) 02/07/2019 7:33 AM CDT Respiratory Rate 16 02/07/2019 9:56 AM CDT Oxygen Saturation 96% 02/07/2019 7:33 AM CDT Inhaled Oxygen Concentration - - Weight 99.8 kg (220 lb) 02/04/2019 5:50 AM CDT Height 167.6 cm (5' 6) 02/04/2019 5:50 AM CDT p er pt Body Mass Index 35.51 02/04/2019 5:50 AM CDT Plan of Treatment Not on file Medical Devices Implanted Type Area Earth Science Professor Device Identifier Shelf Expiration Date Model / Serial / Lot Creo 5.5, 6.5, X 40mm Steward Coated Polyaxial Screw Implanted:Qty: 1 on 02/04/2019 by Vipul Doyle MD at [facility] N/A: Spine Lumbar [employer] 01/21/2023 [id number] / / [id number] Creo 5.5, 6.5, X 40mm Steward Coated Polyaxial Screw Implanted:Qty: 1 on 02/04/2019 by Vipul Doyle MD at [facility] N/A: Spine Lumbar [employer] 11/16/2022 [id number] / / [id number] Creo 5.5, 6.5, X 45mm Steward Coated Polyaxial Screw Implanted:Qty: 2 on 02/04/2019 by Vipul Doyle MD at [facility] N/A: Spine Lumbar [employer] 10/27/2023 [id number] / / [id number] Creo Locking Caps Implanted:Qty: 4 on 02/04/2019 by Vipul Doyle MD at [facility] N/A: Spine Lumbar [employer] 1119.0000 / / [id number] 5.5 X 40mm Curved Basil Implanted:Qty: 1 on 02/04/2019 by Vipul Doyle MD at [facility] N/A: Spine Lumbar [employer] 1119.7040 / / [id number] 5.5 X 45mm Curved Basil Implanted:Qty: 1 on 02/04/2019 by Vipul Doyle MD at [facility] N/A: Spine Lumbar [facility] 1119.7045 / / [id number] [facility] BLUE Advance Directives For more information, please contact: [phone] Documents on File Type Date Recorded Patient District Manager Postal Service Expl anation Advance Directives and Living Will 02/09/2019 10:17 AM Health Care Directiv e 06/21/2015 Advance Directives and Living Will 02/09/2019 10:16 AM Health Care Directiv e 10/18/2002 - * Full Code (Latest Code Status on File) Date Activated Date Inactivated Comments 02/06/2019 9:40 AM Question Answer Comments Code status determined by: Discussion with patie nt/legal decision maker * Full Code Date Activated Date Inactivated Comments 02/04/2019 12:07 PM 02/06/2019 9:40 AM Question Answer Comments Code status determined by: Discussion with patie nt/legal decision maker Healthcare Agents on File Name Relationship Healthcare Agent [facility] Radha Medina Daughter Health Care Agent Femi Medina First Alternate Health Care Agent Care Teams Firer Diesel Locomotive Relationship Specialty Start Date End Date Gavi Tong PCP - Audiology 06/13/09 Allyn Alfredo MD PCP - General Family Practice 01/24/19
--- OUTSIDE RECORDS SUMMARY | 2025-01-16 13:53 | XMS_ITS | Clinical Summary ---
Author Organization [employer] [facility] Address [address] [place] [address] Care Team Providers Care Client Technical Support Associate Name Role Phone Allyn Joyner MD Primary Care Provi kristen Allergies Active Allergy Reactions Criticality Noted Date Comments Clonidine *Unknown - Pt Doesn't Remember 02/09 Penicillin *Unknown - Pt Doesn't Remember 02/09 Medications allopurinol (ZYLOPRIM) 100 mg tablet Take 100 mg by mouth once daily. Active aspirin (ECOTRIN) 81 mg enteric coated tablet Take 81 mg by mouth once daily. Active Calcium Acetate (PHOS-LO) 667 mg capsule Take 667 mg by mouth 3 times daily with meals. Active carvedilol (COREG) 25 mg tablet Take 25 mg by mouth 2 times daily. Active gabapentin (NEURONTIN) 100 mg capsule Take 100 mg by mouth 3 times daily. Active insulin glargine (LANTUS SOLOSTAR PEN; BASAGLAR KWIKPEN) 100 unit/mL (3 mL) pen Inject 10 Units subcutaneous before bedtime. Active oxyCODONE (ROXICODONE) 5 mg capsule Take 5 mg by mouth every 4 hours if needed for Pain. as needed for back pain Active pravastatin (PRAVACHOL) 20 mg tablet Take 20 mg by mouth once daily. Active torsemide (DEMADEX) 10 mg tablet Take 10 mg by mouth 2 times daily. Active ondansetron (ZOFRAN ODT) [address] 8 mg on the tongue 3 times daily. Active ondansetron (ZOFRAN) 8 mg tablet Take 4 mg by mouth every 8 hours. every 8 hours as needed for nausea Active glipiZIDE (GLUCOTROL) 5 mg tablet Take 2.5 mg by mouth one time. Take 2.5mg daily. Active Social History Tobacco Use Types Packs/Day Years Used Date Smoking Tobacco: Never Assessed Comments Unknown Sex and Gender Information Value Date Recorded Sex Assigned at Not on file Legal Sex Female 3:39 PM CDT Gender Identity Not on file Sexual Orientation Not on file Last Filed Vital Signs Vital Sign Reading Time Taken Comments Blood Pressure 140/74 03/18/2019 11:12 AM PRODUCT DEVELOPMENT SPECIALIST Pulse 80 03/18/2019 11:12 AM PRODUCT DEVELOPMENT SPECIALIST Temperature 36.7 C (98 F) 03/18/2019 11:12 AM PRODUCT DEVELOPMENT SPECIALIST Respiratory Rate 18 03/18/2019 11:12 AM PRODUCT DEVELOPMENT SPECIALIST Oxygen Saturation 99% 03/18/2019 11:12 AM PRODUCT DEVELOPMENT SPECIALIST Inhaled Oxygen Concentration - - Weight - - Height - - Body Mass Index - - Plan of Treatment Health Maintenance Due Date Last Done Comments Tetanus booster 11/02/1954 Depression screening for age 12+ 1955 BMI (ht and wt on same day) for age 18+ 11/02/1961 Pneumococcal series for age 50+ (1 of 1 - PCV) 11/02/1993 Zoster (shingles) series for age 50+ (1 of 2) 11/02/1993 DEXA/DXA scan for age 65+ 11/02/2008 RSV vaccine for adults or (1 - 1-dose 75+ series) 11/02/2018 COVID-19 vaccine series ( - 2024- season) 2025 03/21/2022, 09/23/2021, 03/27/2021 Influenza Vaccine (#1) 2025 Hepatitis B series for 19+ Aged Out N o longer eligible based on patient's age to complete this topic Insurance HC MEDICARE PPS BLUE [place]OSS [place] BLUE HB ONLY Advance Directives Documents on File Type Date Recorded Patient Sheeter Operator Expl anation Power of Certifier Care Teams Client Technical Support Associate Relationship Specialty Start Date End Date Allyn Joyner MD PCP - General Family Practice 02/08/19
--- OUTSIDE RECORDS SUMMARY | 2025-01-16 13:53 | XMS_ITS | Encounter Summary ---
Author Organization [facility] Address [address] [place] [address] Care Team Providers Care Gun Examiner Name Role Phone Allyn Alfredo M.D. 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 [address] [place] [phone] Phone: tel: fax: [facility] Region Referral ID Status Reason Start Date Expiration Date V isits Requested Visits Authorized [id number] Authorized 12/26/2024 03/28/2026 99 99 Encounter Details Date Type Department Care Team (Late st Contact Info) Description 12/26/2024 Orders Only Division of Nephrology and Hypertension in [place], [place] [address] [place] [phone] Wilfrid Lincoln Jr., D.O. 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 No 12/15/2024 [facility] Utilities Answer Date Recorded In the past 12 months has e electric, gas, oil, or water company threatened to shut off services in your home? No 12/15/2024 Depression Answer Date Recor ded PHQ-9 Total Score (max 27) 0 02/23 Housing Stability Answer Date Recorded What is your living situation today? I have a [facility] place to live 12/15/2024 Education Answer Date Recorded What is the highest level of school you have completed or the highest degree you have received? Some college, no degree 10/24/2018 Comments No Sex and Gender Information Value Date Recorded Sex Assigned at Female 03/27/2017 3:30 PM PRODUCTION DESIGNER Legal Sex Female 10:26 AM PRODUCTION DESIGNER Gender Identity Female 03/27/2017 3:30 PM PRODUCTION DESIGNER Sexual Orientation Straight 03/27/2017 3: 30 PM PRODUCTION DESIGNER Occupation Industry Job Start Date Job End Date Not on file Not on file Not on file Not on file documented as of this encounter Plan of Treatment Upcoming Encounters Date Type Department Care Team (Latest Contact Info) Description 01/17/2025 9:15 AM CDT Appointment Department of Radiology, [facility] in [place], [place] [address] [place] [phone] Jacklyn Mccarthy APRN, C.N.P., M.S.N. [address] [place] [phone] Discharge Disposition: Home or Self Care 01/17/2025 3:30 PM CDT Clinical Support Department of Rehabilitation Services in [address] [phone] Wilfrid Lincoln Jr., D.OLeida [address] [place] [phone] Sondra Ibarra P.TLeida, D.P.T. 01/24/2025 1:15 PM CDT Clinical Support Department of Rehabilitation Services in [address] [phone] Wilfrid Lincoln Jr., D.OLeida [address] [place] [phone] Sondra Ibarra P.T., D.P.T. 02/09/2025 10:10 AM CDT Appointment Department of Laboratory Medicine in [place] [phone] Allyn Alfredo M.D. [address] [place] [phone] 02/09/2025 10:40 AM CDT Office Visit Department of Family Medicine, [facility], in [address] [phone] [place] Allyn Ryan M.D. [address] [place] [phone] Discharge Disposition: Home or Self Care 03/06/2025 8:45 AM CDT Office Visit Department of Orthopedic Surgery in [address] [phone] Cindy Walker D.PLeidaMLeida [address] [place] [address] Discharge Disposition: Home or Self Care 04/11/2025 4:00 PM PRODUCTION DESIGNER Telemedicine Department of Sleep Medicine in [place], [place] [address] [phone] Emilee Emanuel APRN, C.N.P., D.N.P., M.S.N. [address] [phone] documented as of this encounter Visit Diagnoses Diagnosis 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)- Primary Pain Shoulder Right documented in this encounter Additional Health Concerns Assessment Noted Time PHQ-9 Depression Total Score: 0 02/24/20 23 1:03 PM CDT documented as of this encounter Care Teams Gun Examiner Relationship Specialty Start Date End Date Allyn Alfredo M.D. [address] [phone] PCP - General Family Medicine 04/05/21 documented as of this encounter
--- OUTSIDE RECORDS SUMMARY | 2025-01-16 13:53 | XMS_ITS | Encounter Summary ---
Author Organization [facility] Address [address] [place] [address] Care Team Providers Care Caregivers Homecare Name Role Phone Gavi Tong Unavailable Allyn Alfredo MD Primary Care Provi kristen Encounter Details Date Type Department Care Team (Late st Contact Info) Description 01/26/2019 Orders Only [facility] [address] [place] [phone] Vipul Doyle MD [facility] [address] [place] [address] [place] [address] Pre-operative laboratory examination (Primary Dx) [...] on file Legal Sex Female 4:15 AM ROCK ROOM WORKER Gender Identity Not on file Sexual Orientation Not on file documented as of this encounter Plan of Treatment Not on file documented as of this encounter Results * Methicillin Resistant Staph Aureus PCR (01/26/2019 11:00 AM CDT) Specimen Description Nares 01/26/2019 11:20 AM CDT [facility] Methicillin Resist/Sens S. aureus PCR Negative NEG^Negat eddie 01/26/2019 2:45 PM CDT 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 Comment: MRSA Negative: SA Positive MRSA target DNA not detected, presumed negative for MRSA colonization or the number of bacteria present may be below the limit of detection. Staphylococcus aureus target DNA detected, presumed positive for SA colonization. A positive test does not necessarily indicate the presence of viable organisms. It is, however, presumptive for the presence of SA. This result does not preclude MRSA nasal colonization. FDA approved assay performed using [employer] GeneXpert(R) real-time PCR. Nasal structure (body structure) 01/26/2019 11:00 AM CDT 01/26/2019 11:20 AM CDT us Vipul Doyle MD LAB - MICRO GENERAL ORDERABLES Final Result 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 [address] [place] [address] [phone] documented in this encounter Visit Diagnoses Diagnosis Pre-operative laboratory examination- Primary Pre-procedural laboratory examination documented in this encounter Care Teams Caregivers Homecare Relationship Specialty Start Date End Date Gavi Tong PCP - Audiology 06/13/09 Allyn Alfredo MD PCP - General Family Practice 01/24/19 documented as of this encounter
--- OUTSIDE RECORDS SUMMARY | 2025-01-16 13:54 | XMS_ITS | Encounter Summary ---
Author Organization [facility] Address [address] [place] [address] Care Team Providers Care Cow Rider Name Role Phone Allyn Alfredo M.D. Primary Care Pro vider Encounter Details Date Type Department Care Team (Late st Contact Info) Description 12/05/2024 Orders Only Division of Nephrology and Hypertension in [place], [place] [address] [place] [phone] Jacklyn Mccarthy, ANU, C.N.P., M.S.N. [address] [place] [phone] Social History Tobacco Use Types Packs/Day Years [...] things needed for daily living? No 12/15/2024 [facility] Utilities Answer Date Recorded In the past 12 months has th e electric, gas, oil, or water company threatened to shut off services in your home? No 12/15/2024 Depression Answer Date Recor ded PHQ-9 Total Score (max 27) 0 02/23 Housing Stability Answer Date Recorded What is your living situation today? I have a [facility] place to live 12/15/2024 Education Answer Date Recorded What is the highest level of school you have completed or the highest degree you have received? Some college, no degree 10/24/2018 Comments No Sex and Gender Information Value Date Recorded Sex Assigned at Female 03/27/2017 3:30 PM BORING MACHINE OPERATOR PRODUCTION Legal Sex Female 10:26 AM BORING MACHINE OPERATOR PRODUCTION Gender Identity Female 03/27/2017 3:30 PM BORING MACHINE OPERATOR PRODUCTION Sexual Orientation Straight 03/27/2017 3: 30 PM BORING MACHINE OPERATOR PRODUCTION Occupation Industry Job Start Date Job End Date Not on file Not on file Not on file Not on file documented as of this encounter Plan of Treatment Upcoming Encounters Date Type Department Care Team (Latest Contact Info) Description 01/17/2025 9:15 AM CDT Appointment Department of Radiology, [facility], in [place], [place] [address] [place] [phone] Jacklyn Mccarthy, SHAFTING CLEANER, C.N.P., M.S.N. [address] [place] [phone] Discharge Disposition: Home or Self Care 01/17/2025 3:30 PM CDT Clinical Support Department of Rehabilitation Services in [address] [phone] Wilfrid Lincoln Jr., D.O. [address] [place] [phone] Sondra Ibarra P.T., D.P.T. 01/24/2025 1:15 PM CDT Clinical Support Department of Rehabilitation Services in [address] [phone] Wilfrid Lincoln Jr., D.O. [address] [place] [phone] Sondra Ibarra P.T., D.P.T. 02/09/2025 10:10 AM CDT Appointment Department of Laboratory Medicine in [address] [phone] Allyn Alfredo M.D. [address] [place] [phone] 02/09/2025 10:40 AM CDT Office Visit Department of Family Medicine, [facility], in [address] [phone] Allyn Alfredo M.D. [address] [place] [phone] Discharge Disposition: Home or Self Care 03/06/2025 8:45 AM CDT Office Visit Department of Orthopedic Surgery in [address] [phone] Cindy Walker D.P.M. [address] [place] [phone] Discharge Disposition: Home or Self Care 04/11/2025 4:00 PM BORING MACHINE OPERATOR PRODUCTION Telemedicine Department of Sleep Medicine in [place], [place] 0 [place] [phone] Emilee Emanuel APRN, C.N.P., D.N.P., M.S.N. 2199 [place] [phone] documented as of this encounter Visit Diagnoses Not on filedocumented in this encounter Additional Health Concerns Assessment Noted Time PHQ-9 Depression Total Score: 0 02/24/20 23 1:03 PM CDT documented as of this encounter Care Teams Cow Rider Relationship Specialty Start Date End Date Allyn Alfredo M.D. [address] [place] [phone] PCP - General Family Medicine 04/05/21 documented as of this encounter
--- OUTSIDE RECORDS SUMMARY | 2025-01-16 13:54 | XMS_ITS | Encounter Summary ---
Author Organization [facility] Address [address] [place] [address] Care Team Providers Care Stock Repairer Name Role Phone Allyn Alfredo M.D. Primary Care Pro vider Encounter Details Date Type Department Care Team (Late st Contact Info) Description 01/04/2025 Orders Only Division of Nephrology and Hypertension in [place], [place] [address] [place] [phone] Jacklyn Mccarthy P, ANU, C.N.P., M.S.N. [address] [place] [phone] Social History Tobacco Use Types Packs/Day Years [...] things needed for daily living? No 12/15/2024 [facility] Utilities Answer Date Recorded In the past 12 months has th e electric, gas, oil, or water company threatened to shut off services in your home? No 12/15/2024 Depression Answer Date Recor ded PHQ-9 Total Score (max 27) 0 02/23 Housing Stability Answer Date Recorded What is your living situation today? I have a [facility] place to live 12/15/2024 Education Answer Date Recorded What is the highest level of school you have completed or the highest degree you have received? Some college, no degree 10/24/2018 Comments No Sex and Gender Information Value Date Recorded Sex Assigned at Female 03/27/2017 3:30 PM SLOT SERVICE SPECIALIST Legal Sex Female 10:26 AM SLOT SERVICE SPECIALIST Gender Identity Female 03/27/2017 3:30 PM SLOT SERVICE SPECIALIST Sexual Orientation Straight 03/27/2017 3: 30 PM SLOT SERVICE SPECIALIST Occupation Industry Job Start Date Job End Date Not on file Not on file Not on file Not on file documented as of this encounter Plan of Treatment Upcoming Encounters Date Type Department Care Team (Latest Contact Info) Description 01/17/2025 9:15 AM CDT Appointment Department of Radiology, [facility], in [place], [place] 200 [place] [address] Jacklyn Mccarthy, VENEER SLICING MACHINE OPERATOR, C.N.P., M.S.N. 200 [place] [phone] Discharge Disposition: Home or Self Care 01/17/2025 3:30 PM CDT Clinical Support Department of Rehabilitation Services in [address] [phone] Wilfrid Lincoln Jr., D.OLeida [address] [place] [phone] Sondra Ibarra P.T., D.P.T. 01/24/2025 1:15 PM CDT Clinical Support Department of Rehabilitation Services in [address] [phone] Wilfrid Lincoln Jr., D.O. [address] [place] [phone] Sondra Ibarra P.T., D.P.T. 02/09/2025 10:10 AM CDT Appointment Department of Laboratory Medicine in [address] [phone] Allyn Alfredo M.D. [address] [place] [phone] 02/09/2025 10:40 AM CDT Office Visit Department of Family Medicine, [facility], in [address] [phone] Allyn Alfredo M.D. [address] [place] [phone] Discharge Disposition: Home or Self Care 03/06/2025 8:45 AM CDT Office Visit Department of Orthopedic Surgery in [address] [phone] Cindy Walker D.PLeidaM. [address] [place] [phone] Discharge Disposition: Home or Self Care 04/11/2025 4:00 PM SLOT SERVICE SPECIALIST Telemedicine Department of Sleep Medicine in [place], [place] [address] [phone] Emilee Emanuel APRN, C.N.P., D.N.P., M.S.N. [address] [phone] documented as of this encounter Visit Diagnoses Not on filedocumented in this encounter Additional Health Concerns Assessment Noted Time PHQ-9 Depression Total Score: 0 02/24/20 23 1:03 PM CDT documented as of this encounter Care Teams Stock Repairer Relationship Specialty Start Date End Date Allyn Alfredo M.D. [address] [place] [phone] PCP - General Family Medicine 04/05/21 documented as of this encounter
--- OUTSIDE RECORDS SUMMARY | 2025-01-16 13:54 | XMS_ITS | Encounter Summary ---
Author Organization [facility] Address [address] [place] [address] Care Team Providers Care Rubber Roller Grinder Operator Name Role Phone Allyn Alfredo M.D. Primary Care Pro vider Reason for Referral * Outpatient (Routine) - Authorized Specialty Diagnoses / Procedures Referred By Esther zmaorano Referred To Contact Diagnoses Complication Dialysis Fistula Subsequent Procedures US Hemodialysis Fistula-Graft Right Jacklyn Mccarthy APRN C.N.P., M.S.N. [address] [place] [phone] Phone: tel: fax: [facility] Referral ID Status Reason Start Date Expiration Date V isits Requested Visits Authorized [id number] Authorized 01/11/2025 04/13/2026 1 1 Encounter Details Date Type Department Care Team (Late st Contact Info) Description 01/11/2025 Orders Only Division of Nephrology and Hypertension, [facility], in [place], [place] [address] [place] [phone] Jacklyn Mccarthy APRN, C.N.P., M.S.N. [address] [place] [phone] Complication Dialysis Fistula Subsequent (Primary Dx) Social History Tobacco Use Types [...] for daily living? No 12/15/2024 [facility] Utilities Answer Date Recorded In the past 12 months has e electric, gas, oil, or water company threatened to shut off services in your home? No 12/15/2024 Depression Answer Date Recor ded PHQ-9 Total Score (max 27) 0 02/23 Housing Stability Answer Date Recorded What is your living situation today? I have a [facility] place to live 12/15/2024 Education Answer Date Recorded What is the highest level of school you have completed or the highest degree you have received? Some college, no degree 10/24/2018 Comments No Sex and Gender Information Value Date Recorded Sex Assigned at Female 03/27/2017 3:30 PM DIGITAL DATA ANALYST Legal Sex Female 10:26 AM DIGITAL DATA ANALYST Gender Identity Female 03/27/2017 3:30 PM DIGITAL DATA ANALYST Sexual Orientation Straight 03/27/2017 3: 30 PM DIGITAL DATA ANALYST Occupation Industry Job Start Date Job End Date Not on file Not on file Not on file Not on file documented as of this encounter Plan of Treatment Upcoming Encounters Date Type Department Care Team (Latest Contact Info) Description 01/17/2025 9:15 AM CDT Appointment Department of Radiology, [facility] in [place], [place] [address] [place] [phone] Jacklyn Mccarthy APRN, C.N.P., M.S.N. [address] [place] [phone] Discharge Disposition: Home or Self Care 01/17/2025 3:30 PM CDT Clinical Support Department of Rehabilitation Services in [address] [phone] Wilfrid Lincoln Jr., D.OLeida [address] [place] [phone] Sondra Ibarra P.T., D.P.T. 01/24/2025 1:15 PM CDT Clinical Support Department of Rehabilitation Services in [address] [phone] Wilfrid Lincoln Jr., D.OLeida [address] [place] [phone] Sondra Ibarra P.T., D.P.T. 02/09/2025 10:10 AM CDT Appointment Department of Laboratory Medicine in [address] [phone] Allyn Alfredo M.D. [address] [place] [phone] 02/09/2025 10:40 AM CDT Office Visit Department of Family Medicine, [facility], in [address] [phone] Byers Allyn Ryan M.D. [address] [place] [phone] Discharge Disposition: Home or Self Care 03/06/2025 8:45 AM CDT Office Visit Department of Orthopedic Surgery in [address] [phone] Cindy Walker D.PLeidaMLeida [address] [facility] [place] [phone] Discharge Disposition: Home or Self Care 04/11/2025 4:00 PM DIGITAL DATA ANALYST Telemedicine Department of Sleep Medicine in [place], [place] [address] [phone] Emilee Emanuel APRN, C.N.P., D.N.P., M.S.N. [address] [phone] Scheduled Orders Name Type Priority Associated Diagnoses Order Schedule US Hemodialysis Fistula-Graft Right Imaging RAD - Routine (most inpatients and all outpatients) Complication Dialysis Fistula Subsequent Expected: 01/11/2025, Expires: 04/12/2026 documented as of this encounter Visit Diagnoses Diagnosis Complication Dialysis Fistula Subsequent- Primary documented in this encounter Additional Health Concerns Assessment Noted Time PHQ-9 Depression Total Score: 0 02/24/20 23 1:03 PM CDT documented as of this encounter Care Teams Rubber Roller Grinder Operator Relationship Specialty Start Date End Date Allyn Alfredo M.D. [address] [phone] PCP - General Family Medicine 04/05/21 documented as of this encounter
--- OUTSIDE RECORDS SUMMARY | 2025-01-16 13:54 | XMS_ITS | Encounter Summary ---
Author Organization [facility] Address [address] [place] [address] Care Team Providers Care Licensed Guide Name Role Phone Allyn Alfredo M.D. Primary Care Pro vider Encounter Details Date Type Department Care Team (Late st Contact Info) Description 11/24/2024 Orders Only Division of Nephrology and Hypertension in [place], [place] [address] [place] [phone] Jacklyn Mccarthy, ANU, C.N.P., M.S.N. [address] [place] [phone] Social History Tobacco Use Types Packs/Day Years Used Date Smoking Tobacco: Former Cigarettes 1 51 0 05/19/1961 - 2012 Passive Smoke Exposure: Yes Smokeless Tobacco: Never Alcohol Use Standard Drinks/Week Comments Not Currently 0 (1 standard drink = 0.6 oz pure alcohol) very rarely do I have a drink [facility] Utilities Answer Date Recorded In [...] your living situation today? I have a [facility] place to live 11/15/2024 Education Answer Date Recorded What is the highest level of school you have completed or the highest degree you have received? Some college, no degree 10/24/2018 Comments No Sex and Gender Information Value Date Recorded Sex Assigned at Female 03/27/2017 3:30 PM AGENCY SERVICE REPRESENTATIVE Legal Sex Female 10:26 AM AGENCY SERVICE REPRESENTATIVE Gender Identity Female 03/27/2017 3:30 PM AGENCY SERVICE REPRESENTATIVE Sexual Orientation Straight 03/27/2017 3: 30 PM AGENCY SERVICE REPRESENTATIVE Occupation Industry Job Start Date Job End Date Not on file Not on file Not on file Not on file documented as of this encounter Plan of Treatment Upcoming Encounters Date Type Department Care Team (Latest Contact Info) Description 01/17/2025 9:15 AM CDT Appointment Department of Radiology, [facility], in [place], [place] [address] [place] [phone] Jacklyn Mccarthy, VISUAL DESIGNER, C.N.P., M.S.N. [address] [place] [phone] Discharge Disposition: Home or Self Care 01/17/2025 3:30 PM CDT Clinical Support Department of Rehabilitation Services in [address] [phone] Wilfrid Lincoln Jr., D.O. [address] [place] [phone] Sondra Ibarra P.T., D.P.T. 01/24/2025 1:15 PM CDT Clinical Support Department of Rehabilitation Services in [address] [phone] Wilfrid Lincoln Jr., D.O. [address] [place] [phone] Sondra Ibarra P.T., D.P.T. 02/09/2025 10:10 AM CDT Appointment Department of Laboratory Medicine in [address] [phone] Allyn Alfredo M.D. [address] [place] [phone] 02/09/2025 10:40 AM CDT Office Visit Department of Family Medicine, [facility], in [address] [phone] Allyn Alfredo M.D. [address] [place] [phone] Discharge Disposition: Home or Self Care 03/06/2025 8:45 AM CDT Office Visit Department of Orthopedic Surgery in [address] [phone] Cindy Walker D.P.M. [address] [place] [phone] Discharge Disposition: Home or Self Care 04/11/2025 4:00 PM AGENCY SERVICE REPRESENTATIVE Telemedicine Department of Sleep Medicine in [place], [place] [address] [place] [phone] Emilee Emanuel APRN, C.N.P., D.N.P., M.S.N. [address] [place] [phone] documented as of this encounter Visit Diagnoses Not on filedocumented in this encounter Additional Health Concerns Assessment Noted Time PHQ-9 Depression Total Score: 0 02/24/20 23 1:03 PM CDT documented as of this encounter Care Teams Licensed Guide Relationship Specialty Start Date End Date Allyn Alfredo M.D. [address] [place] [phone] PCP - General Family Medicine 04/05/21 documented as of this encounter
--- OUTSIDE RECORDS SUMMARY | 2025-01-16 13:54 | XMS_ITS | Encounter Summary ---
Author Organization [facility] Address [address] [place] [address] Care Team Providers Care Diesel Motor Mechanic Name Role Phone Allyn Alfredo M.D. Primary Care Pro vider Encounter Details Date Type Department Care Team (Late st Contact Info) Description 01/16/2025 Documentation Division of Nephrology and Hypertension in [place], [place] [address] [place] [phone] Wilfrid Lincoln Jr., D.O. [address] [place] [phone] Social History Tobacco Use Types Packs/Day Years [...] things needed for daily living? No 12/15/2024 [facility] Utilities Answer Date Recorded In the past 12 months has th e electric, gas, oil, or water company threatened to shut off services in your home? No 12/15/2024 Depression Answer Date Recor ded PHQ-9 Total Score (max 27) 0 02/23 Housing Stability Answer Date Recorded What is your living situation today? I have a [facility] place to live 12/15/2024 Education Answer Date Recorded What is the highest level of school you have completed or the highest degree you have received? Some college, no degree 10/24/2018 Comments No Sex and Gender Information Value Date Recorded Sex Assigned at Female 03/27/2017 3:30 PM HOUSEHOLD APPLIANCE ASSEMBLER Legal Sex Female 10:26 AM HOUSEHOLD APPLIANCE ASSEMBLER Gender Identity Female 03/27/2017 3:30 PM HOUSEHOLD APPLIANCE ASSEMBLER Sexual Orientation Straight 03/27/2017 3: 30 PM HOUSEHOLD APPLIANCE ASSEMBLER Occupation Industry Job Start Date Job End Date Not on file Not on file Not on file Not on file documented as of this encounter Progress Notes * Wilfrid Lincoln Jr., D.O. - 01/16/2025 11:36 AM CDT Care coordination-dialysis visit She was seen on dialysis today, please see the sure scripts application in Care everywhere. Several issues, she is complaining of right upper extremity continuing pain. There is no longer anywound. She had previously undergone ligation of the fistula, after several revisions. 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 There is also discomfort in her shoulder and she has struggling with moving the arm very well. I would placed a consult for physical therapy, this has not been going well due to the pain. She is set to go have an ultrasound to evaluate whether there any vascular etiologies for the discomfort. Also, she is having some left hand cramping, which has become quite troublesome and tender as well. Finally, her weight is up 2.7 kg from her target weight, although she relates that she is doing herbest with fluids. Her bowels are not moving regularly, asked her to use a 1.5 times the usual dose of MiraLax along with senna to keep her bowels regular. Also had a half hour conversation with the patient's daughter today, with the patient's permission.Several issues were discussed including quality of life, dietary restrictions, challenges with appointments, coordination, and her desire to be in the loop, but also how challenging it is to be in complete support of her mother. Financial stresses are becoming a major issue as well. Regarding the right upper extremity pain, we will make a plan based on the ultrasound, should the vascular issues not be a challenge-no thrombosis or aneurysm etc., we will move more aggressively towards pain management and physical therapy. documented in this encounter Plan of Treatment Upcoming Encounters Date Type Department Care Team (Latest Contact Info) Description 01/17/2025 9:15 AM CDT Appointment Department of Radiology, [facility], in [place], [place] [address] [place] [phone] Jacklyn Mccarthy APRN, C.N.P., M.S.N. [address] [place] [phone] Discharge Disposition: Home or Self Care 01/17/2025 3:30 PM CDT Clinical Support Department of Rehabilitation Services in [address] [phone] Wilfrid Lincoln Jr., Jayden.O. [address] [place] [phone] Sondra Ibarra P.T., D.P.T. 01/24/2025 1:15 PM CDT Clinical Support Department of Rehabilitation Services in [address] [phone] Wilfrid Lincoln Jr., D.OLeida 200 [place] [phone] Sonrda Ibarra P.T., Jayden.P.T. 02/09/2025 10:10 AM CDT Appointment Department of Laboratory Medicine in [address] [phone] Allyn Alfredo M.D. [address] [place] [phone] 02/09/2025 10:40 AM CDT Office Visit Department of Family Medicine, [facility], in [address] [phone] Allyn Alfredo M.D. [address] [place] [phone] Discharge Disposition: Home or Self Care 03/06/2025 8:45 AM CDT Office Visit Department of Orthopedic Surgery in [address] [phone] Cindy Walker D.P.MLeida [address] [place] [phone] Discharge Disposition: Home or Self Care 04/11/2025 4:00 PM HOUSEHOLD APPLIANCE ASSEMBLER Telemedicine Department of Sleep Medicine in [place], [place] [address] [place] [phone] Emilee Emanuel APRN, C.N.P., D.N.P., M.S.N. [address] [place] [phone] documented as of this encounter Visit Diagnoses Not on filedocumented in this encounter Additional Health Concerns Assessment Noted Time PHQ-9 Depression Total Score: 0 02/24/20 23 1:03 PM CDT documented as of this encounter Care Teams Diesel Motor Mechanic Relationship Specialty Start Date End Date Allyn Alfredo M.D. [address] [place] [address] [phone] PCP - General Family Medicine 04/05/21 documented as of this encounter
--- OUTSIDE RECORDS SUMMARY | 2025-01-16 13:54 | XMS_ITS | Encounter Summary ---
Author Organization [facility] Address [address] [place] [address] Care Team Providers Care Briefcase Sewer Name Role Phone Allyn Alfredo M.D. Primary Care Pro vider Encounter Details Date Type Department Care Team (Late st Contact Info) Description 12/26/2024 Documentation Division of Nephrology and Hypertension in [place], [place] [address] [place] [phone] Wilfrid Lincoln Jr., D.O. [address] [place] [phone] Social History Tobacco Use Types Packs/Day Years [...] things needed for daily living? No 12/15/[address] [facility] Utilities Answer Date Recorded In the past 12 months has th [employer] electric, gas, oil, or water company threatened to shut off services in your home? No 12/15/2024 Depression Answer Date Recor ded PHQ-9 Total Score (max 27) 0 02/23 Housing Stability Answer Date Recorded What is your living situation today? I have a [facility] place to live 12/15/2024 Education Answer Date Recorded What is the highest level of school you have completed or the highest degree you have received? Some college, no degree 10/24/2018 Comments No Sex and Gender Information Value Date Recorded Sex Assigned at Female 03/27/2017 3:30 PM ACID TENDER Legal Sex Female 10:26 AM ACID TENDER Gender Identity Female 03/27/2017 3:30 PM ACID TENDER Sexual Orientation Straight 03/27/2017 3: 30 PM ACID TENDER Occupation Industry Job Start Date Job End Date Not on file Not on file Not on file Not on file documented as of this encounter Progress Notes * Wilfrid Lincoln Jr., D.O. - 12/26/2024 10:15 AM CDT Care coordination-dialysis visit: Please see the [employer] application in Care everywhere for her dialysis note from today. She is complaining of right shoulder and proximal humeral pain, which has been present for well over 3-4 months. She is recently status post ligation of her right upper extremity fistula, with unremitting steal phenomenon. Please see prior notes there also been issues of cellulitis around the wound. She continues to have a very small pustule over 1 of the inferior suture sites. No fevers no chills no erythema. With abduction of her right arm she has quite a bit of mid humeral pain, as well as with flexing her bicep, or internal rotation. Discussed the possibility this could be both musculoskeletal and/or rotator cuff or impingement syndrome. I would like our therapy team to diagnose and treat, she is currently a rehab patient following herfall 2 months ago. She would like to do this in [place]. I also asked her to continue to place a dab of antibiotic ointment on the pustule, and cover it with a Band-Aid every night for the next 2 weeks. I am concerned this lesion may represent retained suture material, and eventually we may need input from our surgical team. We would proceed this with anultrasound. documented in this encounter Plan of Treatment Upcoming Encounters Date Type Department Care Team (Latest Contact Info) Description 01/17/2025 9:15 AM CDT Appointment Department of Radiology, [facility], in [place], [place] [address] [place] [phone] Jacklyn Mccarthy APRN, C.N.P., M.S.N. [address] [place] [phone] Discharge Disposition: Home or Self Care 01/17/2025 3:30 PM CDT Clinical Support Department of Rehabilitation Services in [address] [phone] Wilfrid Lincoln Jr., D.O. [address] [place] [phone] Sondra Ibarra P.T., D.P.T. 01/24/2025 1:15 PM CDT Clinical Support Department of Rehabilitation Services in [address] [phone] Wilfrid Lincoln Jr., D.OLeida [address] [place] [phone] Sondra Ibarra P.T., D.P.T. 02/09/2025 10:10 AM CDT Appointment Department of Laboratory Medicine in [address] [phone] Allyn Alfredo M.D. [address] [place] [phone] 02/09/2025 10:40 AM CDT Office Visit Department of Family Medicine, [facility], in [address] [phone] Allyn Alfredo M.D. [address] [place] [phone] Discharge Disposition: Home or Self Care 03/06/2025 8:45 AM CDT Office Visit Department of Orthopedic Surgery in [address] [phone] Cindy Walker D.PLeidaMLeida [address] [place] [phone] Discharge Disposition: Home or Self Care 04/11/2025 4:00 PM ACID TENDER Telemedicine Department of Sleep Medicine in [place], [place] [address] [place] [phone] Emilee Emanuel APRN, C.N.P., D.N.P., M.S.N. [address] [phone] documented as of this encounter Visit Diagnoses Not on filedocumented in this encounter Additional Health Concerns Assessment Noted Time PHQ-9 Depression Total Score: 0 02/24/20 23 1:03 PM CDT documented as of this encounter Care Teams Briefcase Sewer Relationship Specialty Start Date End Date Allyn Alfredo M.D. NPBoston: [phone] [id number] [phone] PCP - General Family Medicine 04/05/21 documented as of this encounter
--- OUTSIDE RECORDS SUMMARY | 2025-01-16 13:55 | XMS_ITS | Encounter Summary ---
Author Organization [facility] Address [address] [place] [address] Care Team Providers Care Metal Control Coordinator Name Role Phone Allyn Alfredo M.D. Primary Care Pro vider Encounter Details Date Type Department Care Team (Late st Contact Info) Description 12/12/2024 Documentation Division of Nephrology and Hypertension in [place], [place] [address] [place] [phone] Wilfrid Lincoln Jr., D.O. [address] [place] [phone] Social History Tobacco Use Types Packs/Day Years Used Date Smoking Tobacco: Former Cigarettes 1 51 0 05/19/1961 - 2012 Passive Smoke Exposure: Yes Smokeless Tobacco: Never Alcohol Use Standard Drinks/Week Comments Not Currently 0 (1 standard drink = 0.6 oz pure alcohol) very rarely do I have a drink [facility] Utilities Answer Date Recorded In the past 12 months has [facility] electric, gas, oil, or water [...] a [facility] place to live 11/15/2024 Education Answer Date Recorded What is the highest level of school you have completed or the highest degree you have received? Some college, no degree 10/24/2018 Comments No Sex and Gender Information Value Date Recorded Sex Assigned at Female 03/27/2017 3:30 PM REHAB LIAISON Legal Sex Female 10:26 AM REHAB LIAISON Gender Identity Female 03/27/2017 3:30 PM REHAB LIAISON Sexual Orientation Straight 03/27/2017 3: 30 PM REHAB LIAISON Occupation Industry Job Start Date Job End Date Not on file Not on file Not on file Not on file documented as of this encounter Progress Notes * Wilfrid Lincoln Jr., D.O. - 12/12/2024 11:16 AM CDT Dialysis visit-care coordination: She has 2 lesions on her right antecubital region where the surgical therapy was done to ligate herfistula. These had been minimally enlarged when I visited with her 2 weeks ago. She has been using topical antibiotic ointment on these regularly, but today these lesions are worse. They have gone from approximately a point size to now approximately 0.5 cm, with a bit of a head on the more lateral wound. The wound in the antecubital space has a bit of oozing as well, with a serosanguineous fluid. I have prescribed Keflex 500 mg orally twice daily in addition to requesting her to continue to place antibiotic ointment and a bandage over these wounds. If they are not resolving by mid week, I believe we are going to need to have input from our vascular surgeons as there whether this may be retained suture material. documented in this encounter Plan of Treatment Upcoming Encounters Date Type Department Care Team (Latest Contact Info) Description 01/17/2025 9:15 AM CDT Appointment Department of Radiology, [facility] in [place], [place] [address] [place] [phone] Jacklyn Mccarthy APRN, C.N.P., M.S.N. [address] [place] [phone] Discharge Disposition: Home or Self Care 01/17/2025 3:30 PM CDT Clinical Support Department of Rehabilitation Services in [address] [phone] Wilfrid Lincoln Jr., D.O. [address] [place] [phone] Sondra Ibarra P.T., D.P.T. 01/24/2025 1:15 PM CDT Clinical Support Department of Rehabilitation Services in [address] [phone] Wilfrid Lincoln Jr., D.O. [address] [place] [phone] Sondra Ibarra P.T., D.P.T. 02/09/2025 10:10 AM CDT Appointment Department of Laboratory Medicine in [address] [phone] Allyn Alfredo M.D. [address] [place] [phone] 02/09/2025 10:40 AM CDT Office Visit Department of Family Medicine, [facility], in [address] [phone] Allyn Alfredo M.D. [address] [place] [phone] Discharge Disposition: Home or Self Care 03/06/2025 8:45 AM CDT Office Visit Department of Orthopedic Surgery in [address] [phone] Cindy Walker D.PLeidaMLeida [address] [place] [phone] Discharge Disposition: Home or Self Care 04/11/2025 4:00 PM REHAB LIAISON Telemedicine Department of Sleep Medicine in [place], [place] [address] [place] [phone] Emilee Emanuel APRN, C.N.P., D.N.P., M.S.N. [address] [place] [phone] documented as of this encounter Visit Diagnoses Not on filedocumented in this encounter Additional Health Concerns Assessment Noted Time PHQ-9 Depression Total Score: 0 02/24/20 23 1:03 PM CDT documented as of this encounter Care Teams Metal Control Coordinator Relationship Specialty Start Date End Date Allyn Alfredo M.D. [address] [phone] PCP - General Family Medicine 04/05/21 documented as of this encounter
--- OUTSIDE RECORDS SUMMARY | 2025-01-16 13:55 | XMS_ITS | Patient Health Record ---
Author Organization [facility] Address [address] [place] [address] [address] [place] [address] Care Team Providers Care Commercial Announcer Name Role Phone Allyn Alfredo Primary Care Provider U Jh Leiva Unavailable [phone] Rahel BILL ONCOLOGY TECHNICIAN, Shelby Unavailable Unavaila ble Allergies Allergen (clinical drug ingredient) Drug/Non Drug Allergy documented on EMR Reaction Allergy Type Onset Date Status atorvastatin Atorvastatin Unknown Drug Allergy A ctive clonidine Clonidine Unknown Drug Allergy Active oxycodone Oxycodone Unknown Drug Allergy Active Penicillin Unknown Drug Allergy Active Reason For Referral No Information Medications Medication SIG (Take, Route, Frequency, Duration) Notes [...] as needed Orally(for severe pain) Once a day; Duration: 3 days Trial will est care NOV if helpful 02/12/2023 Active MiraLax Active Gentamicin Sulfate A ctive Social History Tobacco Use: Social History Observation Description Date Details (start date - stop date) Never Smoker NA - NA Tobacco Use/Smoking: Question Answer Notes Are you a nonsmoker Alcohol Screen Question Answer Notes Did you have a drink containing alcohol in the p ast year? No Points 0 Interpretation Negative Problems Problem Type SNOMED Code ICD Code Onset Dates Problem Status W/U Status Risk Notes Problem Chronic pain (61761314) Other chronic pain (G89.29) Active confirmed Problem Lumbar spinal fusion (procedure) (12245823) Fusion of spine, lumbar region (M43.26) Active confirmed Problem Lumbosacral spondylosis without myelopathy (95867422) Spondylosis without myelopathy or radiculopathy, lumbar region (M47.816) Active confirmed Problem Degeneration of lumbar intervertebral disc (77767008) Other intervertebral disc degeneration, lumbar region (M51.36) Active confirmed Problem Lumbar radiculopathy (704886949) Radiculopathy, lumbar region (M54.16) Active confirmed Problem Backache (066133146) Dorsalgia, unspecified (M54.9) Active confirmed Problem Somatic dysfunction of lumbar region (633183979) Segmental and somatic dysfunction of lumbar region (M99.03) Active confirmed Problem Abnormal gait (29297749) Unsteadiness on feet (R26.81) Active confirmed Problem Post-laminectomy syndrome (45277134) Postlaminectomy syndrome, not elsewhere classified (M96.1) Active confirmed Problem Low back pain (068266139) Low back pain, unspecified (M54.50) Active confirmed Problem Neurogenic claudication (923154620) Spinal stenosis of lumbar region with neurogenic claudication (M48.062) Active confirmed Plan Of Treatment Pending Test Test Name Order Date DEXA scan 11/20/2022 CT : Lumbar Spine 05/13/2022 MRI : Lumbar 05/07/2022 X ray : Hip, right 05/07/2022 Dexa Scan 11/13/2022 Insurance Providers Payer Name Payer Address Payer Phone Subscriber Number Group Number Insured Name Patient Relationship to Insured Coverage Start Date Coverage End Date [facility] Advantage [address] [address] [place] [address] [id number] Concetta Medina Self - patient is the insured Medicare Part B [employer]. [address] VANESSA Galdamez [phone] [id number] Concetta Medina Self - patient is the insured 9 Medical (General) History Medical History History ICD Code Kidney Disease Diabetes Arthritis Cancer (breast) Chronic kidney disease (Stage 5) Anemia of chronic renal failure Restless leg syndrome Meniere's disease Hyperlipidemia Gout Sleep apnea Surgical History Surgery Date(Month/Year) L4-5 fusion (Dr. Doyle) 02/04/19 Hysterectomy Tonsillectomy Hospitalization History Reason Date(Month/Year) See surgical history
--- OUTSIDE RECORDS SUMMARY | 2025-01-16 13:55 | XMS_ITS | Encounter Summary ---
Author Organization [facility] Address [address] [place] [address] Care Team Providers Care Sausage Linker Name Role Phone Allyn Alfredo M.D. Primary Care Pro vider Encounter Details Date Type Department Care Team (Latest Contact Info) Description 09/25/2024 Intake [facility] Social History Tobacco Use Types Packs/Day Years Used Date Smoking Tobacco: Former Cigarettes 1 51 0 05/19/1961 - 2012 Passive Smoke Exposure: Yes Smokeless Tobacco: Never Alcohol Use Standard Drinks/Week Comments Not Currently 0 (1 standard drink = 0.6 oz pure alcohol) very rarely do I have a drink [facility] Utilities Answer Date Recorded In the past 12 months has [facility] [employer], gas, oil, or water [employer] threatened to shut off services in your home? No 08/26/2024 Humiliation, Afraid, Rape, and Kick questionnair e Answer Date Recorded Within the last year, have y ou been afraid of your partner or ex-partner? No 08/26/2024 Within the last year, have y ou been humiliated or emotionally abused in other ways by your partner or ex-partner? No Within the last year, have y ou been kicked, hit, slapped, or otherwise physically hurt by your partner or ex-partner? No 08/26/2024 Within the last year, have y ou been raped or forced to have any kind of sexual activity by your partner or ex-partner? No 08/26/2024 Hunger Vital Sign Answer Date Recorded Within the past 12 months, y ou worried that your food would run out before you got the money to buy more. Never true 08/27/19 25 Within the past 12 months, t he food you bought just didn't last and you didn't have money to get more. Never true 08/26/2024 PRAPARE - Transportation Answer Date Re corded In the past 12 months, has l ack of transportation kept you from medical appointments or from getting medications? No 08/09 In the past 12 months, has l ack of transportation kept you from meetings, work, or from getting things needed for daily living? No 08/26/2024 Depression Answer Date Recor ded PHQ-9 Total Score (max 27) 0 02/23 Housing Stability Answer Date Recorded What is your living situation today? I have a [facility] place to live 08/26/2024 Education Answer Date Recorded What is the highest level of school you have completed or the highest degree you have received? Some college, no degree 10/24/2018 Comments No Sex and Gender Information Value Date Recorded Sex Assigned at Female 03/27/2017 3:30 PM TRANSIT DRIVER Legal Sex Female 10:26 AM TRANSIT DRIVER Gender Identity Female 03/27/2017 3:30 PM TRANSIT DRIVER Sexual Orientation Straight 03/27/2017 3: 30 PM TRANSIT DRIVER Occupation Industry Job Start Date Job End Date Not on file Not on file Not on file Not on file documented as of this encounter Plan of Treatment Upcoming Encounters Date Type Department Care Team (Latest Contact Info) Description 01/17/2025 9:15 AM CDT Appointment Department of Radiology, [facility], in [place], [place] [address] [place] [address] Jacklyn Mccarthy, PIPE OUT WORKER, C.N.P., M.S.N. 200 [place] [address] Discharge Disposition: Home or Self Care 01/17/2025 3:30 PM CDT Clinical Support Department of Rehabilitation Services in [address] [phone] Wilfrid Lincoln Jr., D.O. [address] [place] [phone] Sondra Ibarra P.T., D.P.T. 01/24/2025 1:15 PM CDT Clinical Support Department of Rehabilitation Services in [address] [phone] Wilfrid Lincoln Jr., D.O. 200 [place] [address] Sondra Ibarra P.T., D.P.T. 02/09/2025 10:10 AM CDT Appointment Department of Laboratory Medicine in [address] [phone] Allyn Alfredo M.D. [address] [place] [phone] 02/09/2025 10:40 AM CDT Office Visit Department of Family Medicine, [facility], in [address] [phone] Allyn Alfredo M.D. [address] [place] [phone] Discharge Disposition: Home or Self Care 03/06/2025 8:45 AM CDT Office Visit Department of Orthopedic Surgery in [address] [phone] Cindy [place] D.P.MLeida [address] [place] [address] Discharge Disposition: Home or Self Care 04/11/2025 4:00 PM TRANSIT DRIVER Telemedicine Department of Sleep Medicine in [place], [place] [address] [place] [phone] Emilee Emanuel APRN, C.N.P., D.N.P., M.S.N. [address], [place] [phone] documented as of this encounter Visit Diagnoses Not on filedocumented in this encounter Additional Health Concerns Infection Onset Date Last Indicated Resolved Time COVID19 Pending 10/18/2024 10/18/2024 10/18/2024 1 1:51 AM CDT COVID19 Pending 11/14/2024 11/14/2024 11/14/2024 9 :22 AM CDT Assessment Noted Time PHQ-9 Depression Total Score: 0 02/24/20 23 1:03 PM CDT documented as of this encounter Care Teams Sausage Linker Relationship Specialty Start Date End Date Allyn Alfredo M.D. [address] [phone] PCP - General Family Medicine 04/05/21 documented as of this encounter
--- OUTSIDE RECORDS SUMMARY | 2025-01-16 13:55 | XMS_ITS | Encounter Summary ---
Author Organization [facility] Address [address] [place] [address] Care Team Providers Care Heart Doctor Name Role Phone Allyn Alfredo M.D. Primary Care Pro vider Encounter Details Date Type Department Care Team (Late st Contact Info) Description 12/12/2024 Orders Only Division of Nephrology and Hypertension in [place], [place] [address] [place] [phone] Wilfrid Lincoln Jr., D.O. [address] [place] [phone] 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) (Primary Dx) Social History Tobacco Use Types Packs/Day Years Used Date Smoking Tobacco: Former Cigarettes 1 51 0 05/19/1961 - 2012 Passive Smoke Exposure: Yes Smokeless Tobacco: Never Alcohol Use Standard Drinks/Week Comments Not Currently 0 (1 standard drink = 0.6 oz pure alcohol) very rarely do I have a drink [facility] Utilities Answer Date Recorded In the past 12 months has e [employer], gas, oil, or water company threatened to [...] your living situation today? I have a [facility] place to live 11/15/2024 Education Answer Date Recorded What is the highest level of school you have completed or the highest degree you have received? Some college, no degree 10/24/2018 Comments No Sex and Gender Information Value Date Recorded Sex Assigned at Female 03/27/2017 3:30 PM SHEETER HELPER Legal Sex Female 10:26 AM SHEETER HELPER Gender Identity Female 03/27/2017 3:30 PM SHEETER HELPER Sexual Orientation Straight 03/27/2017 3: 30 PM SHEETER HELPER Occupation Industry Job Start Date Job End Date Not on file Not on file Not on file Not on file documented as of this encounter Plan of Treatment Upcoming Encounters Date Type Department Care Team (Latest Contact Info) Description 01/17/2025 9:15 AM CDT Appointment Department of Radiology, [facility], in [place], [place] [address] [place] [address] Jacklyn Mccarthy, RURAL ROUTE CARRIER, C.N.P., M.S.N. [address] [place] [phone] Discharge Disposition: Home or Self Care 01/17/2025 3:30 PM CDT Clinical Support Department of Rehabilitation Services in [address] [phone] Wilfrid Lincoln Jr., D.O. [address] [place] [phone] Sondra Ibarra P.T., D.P.T. 01/24/2025 1:15 PM CDT Clinical Support Department of Rehabilitation Services in [address] [phone] Wilfrid Lincoln Jr., D.O. [address] [place] [phone] Sondra Ibarra P.T., D.P.T. 02/09/2025 10:10 AM CDT Appointment Department of Laboratory Medicine in [address] [phone] Allyn Alfredo M.D. [address] [place] [phone] 02/09/2025 10:40 AM CDT Office Visit Department of Family Medicine, [facility], in [address] [phone] Allyn Alfredo M.D. [address] [place] [phone] Discharge Disposition: Home or Self Care 03/06/2025 8:45 AM CDT Office Visit Department of Orthopedic Surgery in [address] [phone] Cindy [place] D.P.MLeida [address] [place] [address] Discharge Disposition: Home or Self Care 04/11/2025 4:00 PM SHEETER HELPER Telemedicine Department of Sleep Medicine in [place], [place] [address], [place] [address] Emilee Emanuel APRN, C.N.P., D.N.P., M.S.N. [address] [place] [phone] documented as of this encounter Visit Diagnoses Diagnosis 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)- Primary documented in this encounter Additional Health Concerns Assessment Noted Time PHQ-9 Depression Total Score: 0 02/24/20 23 1:03 PM CDT documented as of this encounter Care Teams Heart Doctor Relationship Specialty Start Date End Date Allyn Alfredo M.D. [address] [place] [phone] PCP - General Family Medicine 04/05/21 documented as of this encounter
--- OUTSIDE RECORDS SUMMARY | 2025-01-16 13:55 | XMS_ITS | Encounter Summary ---
Author Organization [facility] Address [address] [place] [address] Care Team Providers Care Mud Engineer Name Role Phone Allyn Alfredo M.D. Primary Care Pro vider Encounter Details Date Type Department Care Team (Late st Contact Info) Description 12/13/2024 Orders Only [facility] PCP TH MNT Allyn Alfredo M.D. [address] [place] [phone] Diabetes Mellitus Type 2 With Diabetic Neuropathy (HCC) Social History Tobacco Use Types Packs/Day Years Used Date Smoking Tobacco: Former Cigarettes 1 51 0 05/19/1961 - 2012 Passive Smoke Exposure: Yes Smokeless Tobacco: Never Alcohol Use Standard Drinks/Week Comments Not Currently 0 (1 standard drink = 0.6 oz pure alcohol) very rarely do I have a drink [facility] Utilities Answer Date Recorded In the past 12 months has [facility] electric, gas, oil, or water company [...] your living situation today? I have a [facility] place to live 11/15/2024 Education Answer Date Recorded What is the highest level of school you have completed or the highest degree you have received? Some college, no degree 10/24/2018 Comments No Sex and Gender Information Value Date Recorded Sex Assigned at Female 03/27/2017 3:30 PM DIGITAL ADVERTISING ANALYST Legal Sex Female 10:26 AM DIGITAL ADVERTISING ANALYST Gender Identity Female 03/27/2017 3:30 PM DIGITAL ADVERTISING ANALYST Sexual Orientation Straight 03/27/2017 3: 30 PM DIGITAL ADVERTISING ANALYST Occupation Industry Job Start Date Job End Date Not on file Not on file Not on file Not on file documented as of this encounter Plan of Treatment Upcoming Encounters Date Type Department Care Team (Latest Contact Info) Description 01/17/2025 9:15 AM CDT Appointment Department of Radiology, [facility], in [place], [place] 200 [place] [address] Jacklyn Mccarthy, CAMERA MAKER, C.N.P., M.S.N. 200 [place] [phone] Discharge Disposition: Home or Self Care 01/17/2025 3:30 PM CDT Clinical Support Department of Rehabilitation Services in [address] [phone] Wilfrid Lincoln Jr., D.OLeida [address] [place] [phone] Sondra Ibarra P.T., D.P.T. 01/24/2025 1:15 PM CDT Clinical Support Department of Rehabilitation Services in [address] [phone] Wilfrid Lincoln Jr., D.O. [address] [place] [phone] Sondra Ibarra P.T., D.P.T. 02/09/2025 10:10 AM CDT Appointment Department of Laboratory Medicine in [address] [phone] Allyn Alfredo M.D. [address] [place] [phone] 02/09/2025 10:40 AM CDT Office Visit Department of Family Medicine, [facility], in [address] [phone] Allyn Alfredo M.D. [address] [place] [phone] Discharge Disposition: Home or Self Care 03/06/2025 8:45 AM CDT Office Visit Department of Orthopedic Surgery in [address] [phone] Cindy [place] D.PLeidaM. [address] [place] [address] Discharge Disposition: Home or Self Care 04/11/2025 4:00 PM DIGITAL ADVERTISING ANALYST Telemedicine Department of Sleep Medicine in [place], [place] [address] [phone] Emilee Emanuel APRN, C.N.P., D.N.P., M.S.N. [address] [phone] Scheduled Orders Name Type Priority Associated Diagnoses Orde r Schedule Albumin, Random, Urine Lab Routine Diabetes Mellitus Type 2 With Diabetic Neuropathy (HCC) Expected: 12/27/2024, Expires: 06/01/2025 documented as of this encounter Visit Diagnoses Diagnosis Diabetes Mellitus Type 2 With Diabetic Neuropathy (HCC) documented in this encounter Additional Health Concerns Assessment Noted Time PHQ-9 Depression Total Score: 0 02/24/20 23 1:03 PM CDT documented as of this encounter Care Teams Mud Engineer Relationship Specialty Start Date End Date Allyn Alfredo M.D. [address] [place] [phone] PCP - General Family Medicine 04/05/21 documented as of this encounter
--- OUTSIDE RECORDS SUMMARY | 2025-01-16 13:56 | XMS_ITS | Clinical Summary ---
Author Organization [facility] Address [address] [place] [address] Care Team Providers Care Rib Cutter Name Role Phone Allyn Alfredo M.D. Primary Care Pro vider Source Comments Patient records contain information from all sites at [facility]. For routine questions regarding patient records, call [phone] during business hours, M-F 8:00 AM - 5:00 PM Central Time. Record requests for emergency care only can be directed to [phone] at any time.[facility] Allergies Active Allergy Reactions Criticality Noted Date Comments Clonidine Other (see comments) High 10/28/2018 Dizziness, insomnia, dry mouth Atorvastatin Myalgia Medium 07/15/2013 tiredness, muscle cramps Oxycodone GI intolerance High 02/17/2019 Extreme vomiting Medications * This document contains information received from the source organization and may not represent a complete record from that organization. folic acid/vit B complex and C (DIALYVITE ORAL) Take 1 tablet by mouth daily. Active BD Ultra-Fine Short Pen Needle 31 gauge x 5/16 needle Inject 4 Injection under the skin daily. 400 each 3 3 Active albuterol 90 mcg/actuation inhaler Inhale 2 puffs every 4 (four) hours as needed for wheezing. 18 g 09/08/2023 4:46 PM CDT 4 Active polyethylene glycol (Miralax) 17 gram powder packet Take 1 packet (17 g total) by mouth daily as needed for constipation. Dissolve each 17 g dose in 240 mLs (8 ounces) of beverage. 4 Active diclofenac sodium (Voltaren) 1 % gel Apply 2 g topically 4 (four) times a day as needed (To bilateral thighs for discomfort). 100 g 4 Active sevelamer carbonate (Renvela) 800 mg tablet Take 2 tablets (1,600 mg total) by mouth 3 (three) times a day with meals. HOLD if NPO (no food by mouth) status. Takes 2 tablets with meals; 1 with snacks 4 Active candesartan (Atacand) 32 mg tablet Take 1 tablet (32 mg total) by mouth daily. 90 tablet 3 5 08/23/19 26 Active pravastatin (PravachoL) 40 mg tablet Take 1 tablet (40 mg total) by mouth at bedtime. 90 tablet 3 5 10/18/19 26 Active pramipexole (Mirapex) 0.125 mg tablet Take 2 tablets (0.25 mg total) by mouth daily AND 1 additional tablet (0.125 mg total) 3 (three) times a week on dialysis days (Thursday, Thursday, Thursday0 216 tablet 3 5 10/18/19 26 Active amLODIPine (Norvasc) 5 mg tablet Take 2 tablets (10 mg total) by mouth daily. Take AFTER dialysis on dialysis days. 180 tablet 3 5 10/18/19 26 Active blood-glucose sensor (INFIMET G7 Sensor) device Apply to skin replace every 10 days 10 each 11 11/23/2024 2:04 PM CDT 5 02/29/20 25 Active allopurinoL (Zyloprim) 100 mg tablet TAKE 1 TABLET DAILY 90 tablet 3 5 Active acetaminophen (TylenoL) 325 mg tablet Take 2 tablets (650 mg total) by mouth 4 (four) times a day. Pt said she is taking 2 tablets of 650 mg each - as needed for pain 5 Active loratadine (Claritin) 10 mg tablet Take 1 tablet (10 mg total) by mouth every other day. 15 tablet 5 Active benzonatate (Tessalon Perles) 100 mg capsule Take 2 capsules (200 mg total) by mouth 3 (three) times a day as needed for cough. 80 capsule 1 11/17/2024 3:14 PM CDT 5 Active apixaban (Eliquis) 5 mg tablet Take 0.5 tablets (2.5 mg total) by mouth 2 (two) times a day. 90 tablet 3 5 11/23/19 26 Active torsemide (Demadex) 10 mg tablet Take 3 tablets (30 mg total) by mouth 2 (two) times a day. 540 tablet 3 5 11/24/19 26 Active fluticasone propionate (Flonase) 50 mcg/actuation nasal spray Administer 2 sprays into each nostril 2 (two) times a day for 30 days. 16 g 5 Active doxazosin (Cardura) 1 mg tablet Take 1 tablet (1 mg total) by mouth as directed. Systolic BP > 180 or diastolic BP > 90 on home monitoring. May not repeat sooner than 24 hours. 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 14 capsule 12/12/2024 3:24 PM CDT 5 12/20/19 25 Active Problems Problem Noted Date Diagnosed Date Decline Functional Status [R53.81] 01/12/2025 Unsteadiness Gait Disorder Non Orthopedic 2024 Pain Shoulder Right 12/26/2024 Chronic Diastolic (Congestive) Heart Failure Hypertensive Heart Disease With Heart Failure Shortness Of Breath 11/14/2024 Weakness General 08/27/2024 Urinary Tract Infection Site Not Specified 08/26 Complication Dialysis Fistula Initial 04/29/2024 Carpal Tunnel Syndrome Bilateral 04/29/2024 Bacteremia 04/22/2024 Pain Leg Bilateral 04/14/2024 Atherosclerosis Renal Artery 04/14/2024 Unspecified Atherosclerosis Of [place] Arteries Of Extremities Bilateral Legs 04/14/2024 Pulmonary Nodule Computed Tomography Indetermina te 04/14/2024 Chronic Right Heart Failure 03/09/2024 Halfway (Current) Anticoagulant Treatment 02/10 Bradycardia 03/08/2024 Congestive Heart Failure 09/22/2023 Hemorrhage Vitreous Left 07/09/2023 Hemodialysis Status 07/09/2023 Atrial Fibrillation Paroxysmal 06/26/2023 Infarction Spleen 03/19/2023 Pain Generalized Abdominal 03/13/2023 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/29/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 Anemia Of Chronic Renal Disease 02/05/2018 Cataract Senile Nuclear Sclerosis Right 10/02/19 18 Overview (10/01/2017): Added automatically from request for surgery [id number] Hypertensive Chronic Kidney Disease With Stage 5 Chronic Kidney Disease Or End Stage Renal Disease 08/27/2017 Smoking Tobacco Use Personal History 06/22/2015 Chronic Kidney Disease Stage 5 Glomerular Filtration Rate Less Than 15 06/04/2015 Anemia Of Chronic Renal Failure 09/19/[address] Renal End St age Renal Disease Dialysis Dependent 07/15/2013 Carpal Tunnel Syndrome 10/10/2011 Restless Leg Syndrome 08/22/2011 Periodic Limb Movement Disorder 08/15/2011 Mononeuritis 07/07/2011 Hypertensive Chronic Kidney Disease With Stage 1 Through Stage 4 Chronic Kidney Disease, Or Unspecified Chronic Kidney Disease 03/14/2011 Diabetes Mellitus Type 2 With Diabetic Neuropath y 03/14/2011 Overview (06/09/2023): Diagnosis Maintenance Updates May 2023 Apnea Sleep Obstructive 03/14/2011 Meniere's Disease 02/24/2011 Overview (03/27/2017): date unknown Hyperlipidemia 02/24/2011 Overview (03/27/2017): date unknown Cancer Breast Personal History 06/18/2010 Overview (09/30/2016): Adenocarcinoma unspecified site of endometrium Radiculopathy Lumbar Resolved Problems Problem Noted Date Diagnosed Date Resolved Date Bradycardia Sinus 04/19/2024 04/22/2024 Bacteremia Asymptomatic 04/15/2024 04/13/202404/10 Overview (04/15/2024): Source likely from hemodialysis catheter as both catheter and peripheral blood cultures were positive for bacteria. Initial blood cultures, both drawn from the periphery, were positive for enterococcus faecalis. The second set of cultures, 1 drawn from the periphery and 1 drawn from the hemodialysis catheter, were both positive for gram positive coccus resembling streptococcus. Syncope And Near Syncope 04/14/2024 Loss Weight Abnormal 03/13/2023 024 Dialysis Peritoneal Status 07/29/2022 0 07/09/2023 Weakness General 04/04/2021 07/29/2022 Diabetes Mellitus Type 2 Wit h Diabetic Nephropathy 04/04/2015 06/30/2024 Overview (09/27/2017): Diabetes Mellitus Secondary CKD Stage III GFR 30-59 Gout Acute 09/19/2014 01/27/2023 Encounters Date Type Department Care Team Description 01/16/2025 Documentation Division of Nephrology and Hypertension in [place], [place] [address] [place] [phone] Wilfrid Lincoln Jr., Jayden.OLeida 01/12/2025 11:15 AM CDT Clinical Support Department of Rehabilitation Services in [address] [phone] Allyn Alfredo M.D. Roubal, Katherine E PHan, D.P.T. Decline Functional Status [R53.81]; Pain Leg Bilateral 01/12/2025 10:15 AM CDT Comprehensive Visit Department of Rehabilitation Services in [address] [phone] Wilfrid Lincoln Jr., D.O. Roubal, Katherine E P.T., D.P.T. 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 Complication Dialysis Fistula Subsequent (Primary Dx) 01/04/2025 Orders Only Division of Nephrology and Hypertension in [place], [place] [address] [place] [address] Jacklyn Mccarthy APRN, C.N.P., M.S.N. 01/03/2025 10:30 AM CDT Clinical Support Department of Rehabilitation Services in [address] [phone] Allyn Alfredo M.D. Roubal, Katherine E, P.TLeida, D.P.T. Decline Functional Status [R53.81]; Pain Leg Bilateral 12/26/2024 Documentation Division of Nephrology and Hypertension in [place], [place] [address] [place] [address] Wilfrid Lincoln Jr., D.O. 12/26/2024 Orders Only Division of Nephrology and Hypertension in [place], [place] [address] [place] [address] Wilfrid Lincoln Jr., D.O. 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 Roubal, Katherine E P.T., D.P.T. Decline Functional Status [R53.81]; Pain Leg Bilateral 12/15/2024 9:45 AM CDT Clinical Support Department of Rehabilitation Services in [address] [phone] Brinda Schmidt P.A.-C., Sondra Osman P.TLeida, D.P.T. Unsteadiness Gait Disorder Non Orthopedic (Primary Dx); Deconditioned; Pain Hip Right 12/13/2024 1:45 PM CDT Clinical Support Department of Rehabilitation Services in [address] [phone] Brinda Schmidt P.A.-C., Teo Horn, P.TLeida Decline Functional Status (Primary Dx); Pain Leg Bilateral 12/13/2024 Orders Only [facility] Allyn Alfredo M.D. Diabetes Mellitus Type 2 With Diabetic Neuropathy (HCC) 12/12/2024 Documentation Division of Nephrology and Hypertension in [place], [place] [address] [place] [address] Wilfrid Lincoln Jr., D.O. 12/12/2024 Orders Only Division of Nephrology and Hypertension in [place], [place] [address] [place] [address] Wilfrid Lincoln Jr., D.O. 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 Decline Functional Status [R53.81]; Pain Leg Bilateral 12/06/2024 2:45 PM CDT Clinical Support Department of Rehabilitation Services in [address] [phone] Brinda Schmidt P.A.-C., Sondra Osman P.TLieda, D.P.T. Decline Functional Status [R53.81]; Pain Leg Bilateral 12/05/2024 8:45 AM CDT Office Visit Department of Orthopedic Surgery in [address] [phone] Cindy Walker D.P.M. Diabetes Mellitus Type 2 With Diabetic Neuropathy (HCC) (Primary Dx); Onychomycosis; Pain Toe Left; Pain Toe Right Discharge Disposition: Home or Self Care 12/05/2024 Orders Only Division of Nephrology and Hypertension in [address] [place] [address] Jacklyn Mccarthy APRN, C.N.P., M.S.N. 12/01/2024 1:00 PM CDT Clinical Support Department of Rehabilitation Services in [address] [phone] Brinda Schmidt P.A.-C., Sondra Osman P.T., D.P.T. Decline Functional Status [R53.81]; Pain Leg Bilateral 11/29/2024 1:15 PM CDT Clinical Support Department of Rehabilitation Services in [address] [phone] Brinda Schmidt P.A.-C., Sondra Osman P.T., D.P.T. Decline Functional Status [R53.81]; Pain Leg Bilateral 11/24/2024 4:15 PM CDT Clinical Support Department of Rehabilitation Services in [address] [phone] Brinda Schmidt P.A.-C., Sondra Osman P.T., D.P.T. Decline Functional Status [R53.81]; Pain Leg Bilateral 11/24/2024 Orders Only Division of Nephrology and Hypertension in [place] [address] [place] [phone] Jacklyn Mccarthy APRN, C.NCharlie., M.S.N. 11/23/2024 Orders Only Division of Nephrology and Hypertension in [place] [address] [place] [phone] Jacklyn Mccarthy APRN, C.N.George., M.S.N. 11/22/2024 4:15 PM CDT Clinical Support Department of Rehabilitation Services in [address] [phone] Brinda Schmidt P.A.-C., M.SOdessa Mims, P.TLeida, D.P.T. Decline Functional Status [R53.81]; Pain Leg Bilateral 11/22/2024 Orders Only Division of Nephrology and Hypertension in [place], [place] [address] [place] [address] Wilfrid Lincoln Jr., Jayden.OLeida 11/22/2024 Refill Division of Nephrology and Hypertension in [place], [place] [address] [place] [address] Wilfrid Lincoln Jr., D.O. Med Refill 11/21/2024 Orders Only Division of Nephrology and Hypertension in [place], [place] [address] [place] [address] Wilfrid Lincoln Jr., Jayden.OLeida 11/21/2024 Clinical Communication Division of Nephrology and Hypertension, [facility], in [place], [place] [address] [place] [address] Jacklyn Mccarthy APRN, C.NCharlie., M.S.N. Rx Prior Authorization 11/17/2024 Orders Only Division of Nephrology and Hypertension in [place] [address] [place] [address] Jacklyn Mccarthy APRN, C.N.P., M.S.N. 11/14/2024 12:56 PM CDT - 11/17/2024 1:56 PM CDT Hospital Encounter [facility], [facility], [facility], Sixth Floor [address] [place] [address] Nevin Murcia P.A.-C., M.S. Denis Lima M.B., B.Ch., B.A.O. Shortness Of Breath (Primary Dx) Discharge Disposition: Home or Self Care 11/14/2024 8:16 AM CDT - 11/14/2024 12:12 PM CDT Emergency [facility] [address] [place] [phone] Ne Franz APRN, C.N.P. 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 Decline Functional Status [R53.81]; Pain Leg Bilateral 11/08/2024 10:30 AM CDT Clinical Support Department of Rehabilitation Services in [address] [phone] Brinda Schmidt P.A.-C., M.S. Roubal, Katherine E, P.T., D.P.T. Decline Functional Status [R53.81]; Pain Leg Bilateral 11/08/2024 Refill Division of Nephrology and Hypertension in [place], [place] [address] [place] [address] Wilfrid Lincoln Jr., D.OLeida Med Refill 11/01/2024 12:17 PM CDT Anesthesia Event [facility] [address] [place] [phone] Sylvia Morley M.D. 11/01/2024 9:29 AM CDT - 11/01/2024 11:25 AM CDT Surgery [facility] [address] [place] [phone] Rika Oliveros M.D. LIGATION/EXCISION ARTERIOVENOUS FISTULA/GRAFT UPPER EXTREMITY, RESECTION OF PSEUDOANEURYSMS. 11/01/2024 6:50 AM CDT - 11/01/2024 6:08 PM CDT Hospital Encounter [facility] [address] [place] [phone] Rika Oliveros M.D. 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 Sondra Ibarra, P.Robert., D.P.T. Decline Functional Status [R53.81]; Pain Leg Bilateral 10/26/2024 Refill Division of Nephrology and Hypertension in [place], [place] [address] [place] [phone] Wilfrid Lincoln Jr., D.O. Med Refill 10/25/2024 1:00 PM CDT Comprehensive Visit Division of Vascular and Endovascular Surgery in [place], [place] [address] [place] [phone] Jacklyn Mccarthy APRN, C.N.P., M.S.N. Rika Oliveros M.D. 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 Decline Functional Status [R53.81]; Pain Leg Bilateral 10/19/2024 Results Follow-Up [facility] Emergency Department [address] [place] [phone] Koki Horn R.N. Bacterial Culture, Aerobic + Susceptibility, Urine 10/18/2024 10:24 AM CDT - 10/18/2024 1:31 PM CDT Emergency [facility] [address] [place] [phone] Min Montero P.A.-C., P.A. Acute Cystitis Without Hematuria (Primary Dx); Shortness Of Breath Discharge Disposition: Home or Self Care 10/18/2024 Documentation Division of Nephrology and Hypertension in [address] [phone] Wilfrid Lincoln Jr., Jayden.OLeida 10/18/2024 Nurse Triage Department of Family Medicine, [facility], in [address] [phone] Kami Washington R.N. Breathing Problem 10/17/2024 Documentation Division of Nephrology and Hypertension in [address] [phone] Wilfrid Lincoln Jr., ChristineO. 10/17/2024 Orders Only Division of Nephrology and Hypertension in [address] [phone] Wilfrid Lincoln Jr., D.O. 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) (Primary Dx) from Last 3 Months Immunizations Immunization Administration Dates Next Due HepB Adult 05/14/2021,,12/04/2020,2020 Influenza high dose QV(65 ye ars or older) (PF) 02/25/2021,02/28/2020,02/07/2019,2015,04/10/2015 Influenza, Unspecified 02/19/2023,2020,02/28/2020,2015,04/10/2015,03/11/2013,02/25/2010 PCV13 09/25/2014 PPD Test 04/15/2021,03/12/2020 PPSV23 06/14/2009 Pneumococcal Conjugate(PCV), Unspecified 06/14/2009 SARS-COV-2 (COVID-19) - MODERNA(Discontinued) 09/23/2021,03/27/2021,06/29/2020,2020 SARS-COV-2 (COVID-19) - PFIZ ER BIVALENT TS(Discontinued)(12 YEARS OR OLDER) 03/21/2022 Td (Adult), adsorbed 06/14/2009 Tdap 08/28/2020,06/14/2009 influenza trivalent high dos e (HD)(PF) 03/12/2023,03/04/2022,02/14/2022,2018,03/19/2018,03/30/2017 Family History Medical History Relation Name Comments Skin cancer Daughter 1 Radha Skin cancer Daughter 2 Radha Cardiac pacemaker Father 1 Merle Wahlberg Dementia Father 1 Merle Wahlberg Diabetes Father 1 Merle Wahlberg Hypertension Father 1 Merle Wahlberg Cardiac pacemaker Father 2 Merle Wahlberg Dementia Father 2 Merle Wahlberg Diabetes Father 2 Merle Wahlberg Hypertension Father 2 Merle Wahlberg Arthritis Mother [place] Cataracts Mother [place] Diabetes Mother [place] Hypertension Mother [place] Hypertension Son Femi Medina Anesthesia problems Neg Hx Relation Name Status Comments Daughter 1 Radha Daughter 2 Radha Alive Father 1 Merle Wahlberg Father 2 Merle Wahlberg Alive Mother [place] Son Femi Medina Alive Social History Tobacco Use Types Packs/Day Years Used Date Smoking Tobacco: Former Cigarettes 1 51 0 05/19/1961 - 2012 Passive Smoke Exposure: Yes Smokeless Tobacco: Never Tobacco Cessation:Counseling Given: Not [...] things needed for daily living? No 12/15/2024 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 Utilities Answer Date Recorded In the past 12 months has [facility] electric, gas, oil, or water company threatened to shut off services in your home? No 12/15/2024 Depression Answer Date Recor ded PHQ-9 Total Score (max 27) 0 02/23 Housing Stability Answer Date Recorded What is your living situation today? I have a [facility] place to live 12/15/2024 Education Answer Date Recorded What is the highest level of school you have completed or the highest degree you have received? Some college, no degree 10/24/2018 Comments No Sex and Gender Information Value Date Recorded Sex Assigned at Female 03/27/2017 3:30 PM [employer] Legal Sex Female 10:26 AM [employer] Gender Identity Female 03/27/2017 3:30 PM [employer] Sexual Orientation Straight 03/27/2017 3: 30 PM [employer] Occupation Industry Job Start Date Job End Date Not on file Not on file Not on file Not on file Last Filed Vital Signs Vital Sign Reading Time Taken Comments Blood Pressure 198/69 12/22/2024 10:59 AM CDT Pulse 71 12/22/2024 10:59 AM CDT Temperature 36.7 C (98.1 F) 11/17/2024 1:19 PM CDT Respiratory Rate 17 11/17/2024 1:05 PM CDT Oxygen Saturation 100% 11/17/2024 1:05 PM CDT Inhaled Oxygen Concentration - - Weight 74.1 kg (163 lb 5.8 oz) 12/22/2024 10:52 AM CDT Height 160 cm (5' 2.99) 11/14/2024 7:00 PM CDT Body Mass Index 28.95 11/14/2024 7:00 PM CDT Plan of Treatment Upcoming Encounters Date Type Department Care Team (Latest Contact Info) Description 01/17/2025 9:15 AM CDT Appointment Department of Radiology, [facility] in [place], [place] [address] [place] [address] Jacklyn Mccarthy APRN, C.N.P., M.S.N. [address] [place] [phone] Discharge Disposition: Home or Self Care 01/17/2025 3:30 PM CDT Clinical Support Department of Rehabilitation Services in [address] [phone] Wilfrid Lincoln Jr., D.O. [address] [place] [phone] Sondra Ibarra P.T., D.P.T. 01/24/2025 1:15 PM CDT Clinical Support Department of Rehabilitation Services in [address] [phone] Wilfrid Lincoln Jr., D.O. [address] [place] [address] Sondra Ibarra P.T., D.P.TLeida 02/09/2025 10:10 AM CDT Appointment Department of Laboratory Medicine in [address] [phone] Allyn Alfredo M.D. [address] [place] [phone] 02/09/2025 10:40 AM CDT Office Visit Department of Family Medicine, [facility], in [address] [phone] Allyn Alfredo M.D. [address] [place] [phone] Discharge Disposition: Home or Self Care 03/06/2025 8:45 AM CDT Office Visit Department of Orthopedic Surgery in [address] [phone] Cindy Walker D.PLeidaMLeida [address] [phone] Discharge Disposition: Home or Self Care 04/11/2025 4:00 PM [employer] Telemedicine Department of Sleep Medicine in [place], [place] [address] [place] [address] Emilee Emanuel APRN, C.N.P., D.N.P., M.S.N. [address] [phone] Health Maintenance Due Date Last Done Comments HIB Vaccines (1 of 1 - Risk 1-dose series) 02/02/1947 Meningococcal Vaccine (1 - Risk 2-dose series) 11/02/1945 MenB Vaccine (1 of 4 - Increased Risk) 11/02/1953 Zoster Vaccines (1 of 2) 11/02/1993 Diabetes Education 09/10/2018 09/10/2017 (P erformed elsewhere), 07/21/2015 RSV vaccine - (32-36 weeks) or 60+ years (1 - 1-dose 75+ series) 11/02/2018 Hepatitis B Vaccines (5 of 5 - Risk Dialysis Recombivax 3-dose series) 05/14/2022 05/14/2021, 01/08/2021, 12/04/2020, Additional history exists Diabetic Office Visit with Foot Exam 07/30/2023 07/29/2022, 07/29/2022, 07/29/2022, Additional history exists Diabetic Eye Exam 11/19/2023 11/18/2022, (Performed elsewhere), 10/01/2017, Additional history exists Urine Albumin 01/09/2024 01/08/2023, 12/09, 03/12/2020, Additional history exists Visit: Medicare Annual Wellness 10/06/2024 10/06/2023, 07/29/2022 COVID-19 Vaccine ( season) 2025 03/21/2022, 09/23/2021, 03/27/2021, Additional history exists Influenza Vaccine (#1) 2025 , 02/19/2023, 03/04/2022, Additional history exists Hemoglobin A1C 02/24/2025 08/25/2024, 12/0 10/2023, 01/15/2024, Additional history exists Office Visit for Blood Pressure Check / Re-check 03/24/2025 12/22/2024 Visit: Chronic Disease, age 18+ 08/25/2025 08/25/2024, 08/25/2024 Creatinine Level (Kidney Function Test) 11/16/2025 11/16/2024, 11/15/2024, 11/14/2024, Additional history exists Potassium Level 11/16/2025 11/16/2024, 07/0 12/2024, 11/14/2024, Additional history exists Sodium Level 11/16/2025 11/16/2024, 07/0 12/2024, 11/14/2024, Additional history exists DTaP,Tdap,and Td Vaccines (3 - Td or Tdap) 08/28/2030 08/28/2020, 06/14/2009, 06/14/2009 Mammogram Discontinued 06/08/2015, 05/2011 (Performed elsewhere) Colonoscopy Discontinued 06/27/2015 Colorectal Cancer Surveillance Discontinued Hepatitis B Screening Discontinued 04/21/2024 , 02/23/2023, 03/12/2020, Additional history exists Pneumococcal vaccine (50+ years) Completed 06/29/2024, 09/25/2014, 06/14/2009, Additional history exists Depression Screening (Annual PHQ-2) Completed 06/30/2024, 06/27/2024 Lung Cancer Screening Discontinued 08/26/2024 Fall Risk Screen (Annual) Completed 11/01/2024 CT Colonography Discontinued Cologuard Discontinued IPV Vaccines Aged Out No longer eligi ble based on patient's age to complete this topic Medical Devices Implanted Type Area Field Hockey Coach Device Identifier Shelf Expiration Date Model / Serial / Lot Clp Hrzn Ti 6 Mook Padilla Nader - [id number] Implanted:Qty : 1 on 07/16/2023 by Cristhian Grant M.B., Ch.B., Ph.D. at [facility] Hardware e.g. pins/screws/r ods Right: Arm [employer] [id number] / / Mook Lg Lgt Ti Sm - [id number] Implanted:Qty : 1 on 07/16/2023 by Cristhian Grant M.B., Ch.B., Ph.D. at [facility] Hardware e.g. pins/screws/r ods Right: Arm Ethicon LT100 / / Clp Lgc Lgt Ti Sm - [id number] Implanted:Qty : 1 on 07/16/2023 by Cristhian Grant M.B., Ch.B., Ph.D. at [facility] Hardware e.g. pins/screws/r ods Right: Arm Ethicon LT100 / / Clp Lgc Lgt Ti Sm - [id number] Implanted:Qty : 1 on 03/10/2024 by Cristhian Grant M.B., Ch.B., Ph.D. at [facility] Hardware e.g. pins/screws/r ods Ethicon LT100 / / Clp Lgc Lgt Ti - [id number] Implanted:Qty : 1 on 03/10/2024 by Cristhian Grant M.B., Ch.B., Ph.D. at [facility] Hardware e.g. pins/screws/r ods Ethicon [id number] 11/07/2028 LT100 / / [id number] Clp Hrzn Ti 6 Clp Md Nader - [id number] Implanted:Qty : 1 on 03/10/2024 by Cristhian Grant M.B., Ch.B., Ph.D. at [facility] Hardware e.g. pins/screws/r ods [employer] [id number] / / Implantable Port Implantable Port Right: Abdomen Description:Peritoneal dialy sis catheter Implantable Port-04/08/20 23 Implanted: (Quantity not on file) Implantable Port Right: Chest Description:Dialysis port Dexcom Misc Other Abdomen +17.0d Implanted:Qty : 1 on 10/26/2017 by Lalo Carroll M.D. at [facility] Ocular Lens Right: Eye [employer] (Previously ANDRADE) 08/01/2021 [id number] / [id number] / +19.5d Implanted:Qty : 1 on 11/09/2017 by Lalo Carroll M.D. at [facility] Ocular Lens Left: Eye [employer] (Previously ANDRADE) 04/14/2021 [id number] / [id number] / Procedures Procedure Name Priority Date/Time Associated Diagnosis Comments GLUCOSE POCT, B Routine 11/17/2024 11:44 AM CDT GLUCOSE POCT, B Routine 11/17/2024 7:50 AM CDT GLUCOSE POCT, B Routine 11/17/2024 6:54 AM CDT GLUCOSE POCT, B Routine 11/16/2024 8:08 PM CDT GLUCOSE POCT, B Routine 11/16/2024 5:13 PM CDT GLUCOSE POCT, B Routine 11/16/2024 11:58 AM CDT GLUCOSE POCT, B Routine 11/16/2024 6:17 AM CDT RENAL FUNCTION PANEL, S Routine 11/16/2024 3:45 AM CDT GLUCOSE POCT, B Routine 11/15/2024 8:54 PM CDT GLUCOSE POCT, B Routine 11/15/2024 4:42 PM CDT CBC NO CALL BACK, REFLEX T/S Timed 11/15/2024 4:04 PM CDT HEMODIALYSIS Routine 11/15/2024 2:41 PM CDT GLUCOSE POCT, B Routine 11/15/2024 11:33 AM CDT HEMODIALYSIS Routine 11/15/2024 9:35 AM CDT GLUCOSE POCT, B Routine 11/15/2024 7:44 AM CDT CBC WITHOUT DIFFERENTIAL, B Routine 11/15/2024 3:49 AM CDT RENAL FUNCTION PANEL, S Routine 11/15/2024 3:49 AM CDT GLUCOSE POCT, B Routine 11/14/2024 10:32 PM CDT ECG Routine 11/14/2024 8:03 PM CDT GLUCOSE POCT, B Routine 11/14/2024 6:42 PM CDT TROPONIN T, 2H/6H REFLEX, 5TH GEN, P Timed 11/14/2024 6:30 PM CDT TROPONIN T, BASELINE, 5TH GEN, P STAT 11/14/2024 2:05 PM CDT HBS ANTIGEN SCRN, S STAT 11/14/2024 2 :05 PM CDT HCV AB W/REFLEX TO HCV PCR, S STAT 11/14/2024 2:05 PM CDT HBS ANTIBODY SCRN, S STAT 11/14/2024 2:05 PM CDT HBC TOTAL AB SCRN, S STAT 11/14/2024 2:05 PM CDT ECG STAT 11/14/2024 1:21 PM CDT HEMODIALYSIS Routine 11/14/2024 1:18 PM CDT DX CHEST PORTABLE 1 VIEW RAD - Semiurgent (Fast; most ED patients; some inpatients) 11/14/2024 8:54 AM CDT INFLUENZA A, B, RSV, PCR, POCT STAT 11/14/2024 8:54 AM CDT SARS CORONAVIRUS 2, PCR RAPID, V STAT 11/14/2024 8:54 AM CDT VBG (VENOUS BLOOD GAS), POCT, B STAT 11/14/2024 8:48 AM CDT NT-PRO B-TYPE NATRIURETIC PEPTIDE (BNP), S STAT 11/14/2024 8:48 AM CDT PROTHROMBIN TIME (PT), P STAT 11/14/2024 8:48 AM CDT BASIC METABOLIC PANEL, S/P STAT 11/14/2024 8:48 AM CDT CBC WITH DIFFERENTIAL, B STAT 11/14/2024 8:48 AM CDT ECG Routine 11/14/2024 8:33 AM CDT ADULT OXYGEN THERAPY Routine 11/01/2024 3:50 PM CDT ACID FAST SMEAR FOR MYCOBACTERIUM Routine 11/01/2024 1:41 PM CDT BACTERIAL CULTURE, AEROBIC + SUSC Routine 11/01/2024 1:41 PM CDT 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) MYCOBACTERIAL CULTURE, V Routine 11/01/2024 1:41 PM CDT 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) FUNGAL SMEAR Routine 11/01/2024 1:41 PM CDT 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) GRAM STAIN Routine 11/01/2024 1:41 PM CDT 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) FUNGAL CULTURE, ROUTINE Routine 11/01/2024 1:41 PM CDT 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) BACTERIAL CULTURE, ANAEROBIC + SUSC Routine 11/01/2024 1:41 PM CDT 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) LDA ANE ENDOTRACHEAL AIRWAY Routine 11/01/2024 12:30 PM CDT LIGATION/EXCISION ARTERIOVENOUS FISTULA/GRAFT UPPER EXTREMITY 11/01/2024 11:57 AM CDT 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) 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 VASCULAR SURGERY IMAGE EXAM Routine 11/01/2024 12:00 AM CDT TROPONIN T, 2H/6H REFLEX, 5TH GEN, P Timed 10/18/2024 12:44 PM CDT URINALYSIS WITH MICROSCOPIC Routine 10/18/2024 12:16 PM CDT BACTERIAL CULTURE, AEROBIC + SUSC, URINE STAT 10/18/2024 12:16 PM CDT INFLUENZA A, B, RSV, PCR, POCT STAT 10/18/2024 11:22 AM CDT SARS CORONAVIRUS 2, PCR RAPID, V STAT 10/18/2024 11:[address] ABDOMEN PELVIS WITHOUT IV CONTRAST RAD - Semiurgent (Fast; most ED patients; some inpatients) 10/18/2024 11:05 AM CDT DX CHEST AP OR PA AND LATERAL 2 VIEWS RAD - Semiurgent (Fast; most ED patients; some inpatients) 10/18/2024 11:05 AM CDT ECG STAT 10/18/2024 11:01 AM CDT LIPASE, S/P STAT 10/18/2024 10:45 AM CDT TROPONIN T, BASELINE, 5TH GEN, P STAT 10/18/2024 10:45 AM CDT CBC WITH DIFFERENTIAL, B STAT 10/18/2024 10:45 AM CDT COMPREHENSIVE METABOLIC PANEL, S/P STAT 10/18/2024 10:[address] CHEST WITHOUT IV CONTRAST RAD - Semiurgent (Fast; most ED patients; some inpatients) 08/26/2024 3:30 AM CDT HEMOGLOBIN A1C, B Routine 08/25/2024 1:5 8 PM CDT Diabetes Mellitus Type 2 With Diabetic Neuropathy (HCC) HEPATITIS B SURFACE ANTIGEN Routine 04/21/2024 9:09 AM PLATE MILL MILL HAND ALBUMIN, RANDOM, U Routine 01/08/2023 12:27 PM CDT Diabetes Mellitus Type 2 With Diabetic Nephropathy (HCC) BI BREAST SCREENING BILATERAL Routine 06/08/2015 10:33 AM PLATE MILL MILL HAND from Last 3 Months or Most Recently Relevant to Health Maintenance Results * Glucose, POCT (11/17/2024 11:44 AM CDT) Only the most recent of13 resultswithin the time period is included. Glucose, POCT, B 102 70 - 140 mg/dL 11/17/2024 11:49 AM CDT PCDE Site Capillary 11/17/2024 11:49 AM CDT PCDE Last Intake 1-2 hours 11/17/2024 11:49 AM CDT PCDE Blood 11/17/2024 11:4 4 AM CDT 11/17/2024 11:49 AM CDT us Unknown Provider LAB POCT ORDERABLES-MANUAL Marilou l Result P[facility] [address] [place] [address], [place] PCDE [facility] [address] [place] [address] * (ABNORMAL) Renal Function Panel (11/16/2024 3:45 AM CDT) Only the most recent of2 resultswithin the time period is included. Potassium, S 4.0 3.6 - 5.2 mmol/L 11/16/2024 5:14 AM CDT DTL Sodium, S 133(L) 135 - 145 mmol/L 11/16/2024 5:14 AM CDT DTL Chloride, S 96(L) 98 - 107 mmol/L 11/16/2024 5:14 AM CDT DTL Bicarbonate, S 21(L) 22 - 29 mmol/L 11/16/2024 5:14 AM CDT DTL Anion Gap 16(H) 7 - 15 11/16/2024 5:14 AM CDT DTL BUN (Blood Urea Nitrogen), S 60(H) 6 - 21 mg/dL 11/16/2024 5:14 AM CDT DTL Creatinine 8.44(H) 0.59 - 1.04 mg/dL 11/16/2024 5:14 AM CDT DTL Estimated GFR (eGFR) <15(L) >=60 mL/min/BSA 11/16/2024 5:14 AM CDT DTL Comment: Estimated GFR calculated using the 2020 CKD_EPI creatinine equation. Calcium, Total, S 9.0 8.8 - 10.2 mg/dL 11/16/2024 5:14 AM CDT DTL Glucose, S 104 70 - 140 mg/dL 11/16/2024 5:14 AM CDT DTL Albumin, S 3.5 3.5 - 5.0 g/dL 11/16/2024 5:14 AM CDT DTL Phosphorus (Inorganic), S 5.0(H) 2.5 - 4.5 mg/dL 11/16/2024 5:14 AM CDT DTL Blood (Blood, Venous) 11/16/2024 3:45 AM CDT 11/16/2024 4:10 AM CDT us Nory Lucio P.A.-C. LAB BLOOD ADD-ON Final Res ult [facility] [address] [place] [address], [place] [facility] [address] [place] [address] * (ABNORMAL) CBC no call back, reflex T/S HGB <8 (11/15/2024 4:04 PM CDT) Hemoglobin 9.4(L) 11.6 - 15.0 g/dL 11/15/2024 4:26 PM CDT DTL Hematocrit 30.5(L) 35.5 - 44.9 % 11/15/2024 4:26 PM CDT DTL Erythrocytes 3.02(L) 3.92 - 5.13 x10(12)/L 11/15/2024 4:26 PM CDT DTL MCV 101.0(H) 78.2 - 97.9 fL 11/15/2024 4:26 PM CDT DTL RBC Distrib Width 14.6 12.2 - 16.1 % 11/15/2024 4:26 PM CDT DTL Platelet Count 137(L) 157 - 371 x10(9)/L 11/15/2024 4:26 PM CDT DTL Leukocytes 4.6 3.4 - 9.6 x10(9)/L 11/15/2024 4:26 PM CDT DTL Neutrophils 3.14 1.56 - 6.45 x10(9)/L 11/15/2024 4:26 PM CDT DHPM Lymphocytes 1.03 0.95 - 3.07 x10(9)/L 11/15/2024 4:26 PM CDT DTL Monocytes 0.35 0.26 - 0.81 x10(9)/L 11/15/2024 4:26 PM CDT DTL Eosinophils 0.09 0.03 - 0.48 x10(9)/L 11/15/2024 4:26 PM CDT DTL Basophils <0.03 0.01 - 0.08 x10(9)/L 11/15/2024 4:26 PM CDT DTL Blood (Blood, Venous) 11/15/2024 4:04 PM CDT 11/15/2024 4:19 PM CDT us Nory Lucio P.A.-C. LAB BLOOD NON ADD-ON Final Result [facility] [address] [place] [address], [place] DTL [facility] [address] [place] [address] DHPM [facility] [address] [place] [address] * (ABNORMAL) CBC without Differential (11/15/2024 3:49 AM CDT) Hemoglobin 8.0(L) 11.6 - 15.0 g/dL 11/15/2024 4:14 AM CDT DTL Hematocrit 25.8(L) 35.5 - 44.9 % 11/15/2024 4:14 AM CDT DTL Erythrocytes 2.59(L) 3.92 - 5.13 x10(12)/L 11/15/2024 4:14 AM CDT DTL MCV 99.6(H) 78.2 - 97.9 fL 11/15/2024 4:14 AM CDT DTL RBC Distrib Width 14.6 12.2 - 16.1 % 11/15/2024 4:14 AM CDT DTL Platelet Count 144(L) 157 - 371 x10(9)/L 11/15/2024 4:14 AM CDT DTL Leukocytes 4.2 3.4 - 9.6 x10(9)/L 11/15/2024 4:14 AM CDT DTL Blood (Blood, Venous) 11/15/2024 3:49 AM CDT 11/15/2024 4:07 AM CDT Nevin Murcia P.A.-C., M.S. LAB BLOOD ADD-ON Final Result [facility] [address] [place] [address], [facility] [address] [place] [address] * ECG 12 Lead (11/14/2024 8:03 PM CDT) Only the most recent of4 resultswithin the time period is included. Ventricular Rate ECG/Min 98 BPM MUSE RI Interval 180 ms MUSE QRSD Interval 98 ms MUSE QT Interval 362 ms MUSE QTC Interval 462 ms MUSE P [place] 52 degrees MUSE R [place] -8 degrees MUSE T Wave [place] 94 degrees MUSE 11/14/2024 8:03 PM CDT 11/14/2024 8:07 PM CDT Impressions MUSE - 11/14/2024 8:07 PM CDT Sinus rhythm Low anterior forces Minimal voltage criteria for LVH, may be normal variant Nonspecific T wave abnormality When compared with ECG of 14-Nov-2024 13:21, Premature ventricular complexes are no longer present Premature supraventricular complexes are no longer present Reviewed by JANA Mccarthy Narrative Procedure Note King Ojeda M.D. - 11/14/2024 IMPRESSION: Sinus rhythm Low anterior forces Minimal voltage criteria for LVH, may be normal variant Nonspecific T wave abnormality When compared with ECG of 14-Nov-2024 13:21, Premature ventricular complexes are no longer present Premature supraventricular complexes are no longer present Reviewed by JANA Mccarthy us Slava Quinones M.D. ECG ORDERABLES Final Re sult Performing Organization Address City/[facility]/ZIP Co de Phone Number MUSE NA * (ABNORMAL) Troponin T, 2 Hour with 6 Hour Reflex, 5th Gen (11/14/2024 6:30 PM CDT) Only the most recent of2 resultswithin the time period is included. Troponin T, 2 hr, 5th gen 149(H) <=10 ng/L 11/14/2024 7:33 PM CDT DTL Comment:Consider acute myoca rdial injury 2H Delta % 6 % 11/14/2024 7:33 PM CDT DTL Comment:6 hour collection pe nding. 2H Delta Interp Not Changing 11/14/2024 7:33 PM CDT DTL Blood 11/14/2024 6:30 PM CDT 11/14/2024 6:56 PM CDT us Nevin Murcia P.A.-C., M.S. LAB BLOOD TROPONI N Final Result [facility] [address] [place] [address], [place] DTL [facility] [address] [place] [address] * HBs Antigen Scrn, Serum (11/14/2024 2:05 PM CDT) HBs Antigen Scrn, S Negative Negative 11/14/2024 8:54 PM CDT [facility] Blood (Blood, Venous) 11/14/2024 2:05 PM CDT 11/14/2024 7:18 PM CDT Elia KennedyB.S. LAB MICROBIOLOGY - B LOOD ORDERABLES Final Result Performing Organization Address [facility]/ZIP Co de Phone Number [facility] [address] [place] [id number] [place] [address] [place] [place] [address] * HBc Total Ab Scrn, Serum (11/14/2024 2:05 PM CDT) Pathologist [facility] HBc Total Ab Scrn, S Negative Negative 11/14/2024 8:54 PM CDT [facility] Blood (Blood, Venous) 11/14/2024 2:05 PM CDT 11/14/2024 7:18 PM CDT Elia KennedyB.S. LAB MICROBIOLOGY - B LOOD ORDERABLES Final Result Performing Organization Address 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 Co de Phone Number [facility] [address] [place] [address] [facility] [address] [place] [address] * HBs Antibody Scrn, Serum (11/14/2024 2:05 PM CDT) HBs Antibody Scrn, S Negative 11/14/2024 8:54 PM CDT [facility] Comment: Patient is NOT immune to HBV infection. Consumption of high-dose biotin supplement within 12 hours of blood collection for this test can cause false-negative results. ----REFERENCE VALUE---- Unvaccinated: Negative Vaccinated: Positive HBs Antibody, Quantitative, S 5.6 mIU/mL 11/14/2024 8:54 PM CDT [facility] Comment: ----REFERENCE VALUE---- Unvaccinated: <8.5 mIU/mL Vaccinated: >=11.5 mIU/mL Blood (Blood, Venous) 11/14/2024 2:05 PM CDT 11/14/2024 7:18 PM CDT Elia Macdonald LAB MICROBIOLOGY - B LOOD ORDERABLES Final Result Performing Organization Address City/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 Co de Phone Number [facility] [address] [place] [address] [facility] [address] [place] [address] * (ABNORMAL) Troponin T, Baseline with 2 Hour/6 Hour Reflex Biomarker Panel (11/14/2024 2:05 PM CDT) Only the most recent of2 resultswithin the time period is included. Pathologist [facility] Troponin T, Baseline, 5th gen 140(H) <=10 ng/L 11/14/2024 3:14 PM CDT [facility] Comment:Consider acute myoca rdial injury Blood (Blood, Venous) 11/14/2024 2:05 PM CDT 11/14/2024 2:39 PM CDT Nevin Murcia P.A.-C. M.S. LAB BLOOD TROPONI N Final Result Performing Organization Address 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 Co de Phone Number [facility] [address] [place] [address], [place] [facility] [address] [place] [address] * HCV Ab w/Reflex to HCV PCR, Serum (11/14/2024 2:05 PM CDT) Pathologist [facility] HCV Ab, S Negative Negative 11/14/2024 8:54 PM CDT [facility] Comment: Consumption of high-dose biotin supplement within 12 hours of blood collection for this test can cause false-negative results. Blood (Blood, Venous) 11/14/2024 2:05 PM CDT 11/14/2024 7:18 PM CDT Elia Macdonald LAB MICROBIOLOGY - B LOOD ORDERABLES Final Result [facility] [address] [place] [address] [facility] [address] [place] [address] * DX Chest Portable 1 View (11/14/2024 8:54 AM CDT) Anatomical Region Laterality Modality Chest, Thoracic RST LOS, Tho racic ARZ LOS, Thoracic FLA LOS N/A Digital Radiography Impressions 11/14/2024 8:58 AM CDT Increased interstitial opacities, likely pulmonary edema. Probable small left and trace right pleural effusions. No focal consolidation. No pneumothorax. Normal heart size. Right IJ CVC tip in stable position projecting over the right atrium. Narrative 11/14/2024 8:58 AM CDT EXAM: DX CHEST PORTABLE 1 VIEW Procedure Note Edgardo Rene M.D. - 11/14/2024 EXAM: DX CHEST PORTABLE 1 VIEW IMPRESSION: Increased interstitial opacities, likely pulmonary edema. Probable smallleft and trace right pleural effusions. No focal consolidation. Nopneumothorax. Normal heart size. Right IJ CVC tip in stable positionprojecting over the right atrium. Ne Franz INSTRUMENT TESTER, C.N.P. IMG DIAGNOSTIC I MAGING PROCEDURES Final Result * SARS Coronavirus 2, PCR Rapid Symptomatic (11/14/2024 8:54 AM CDT) Only the most recent of2 resultswithin the time period is included. SARS CoV-2, PCR, Rapid, V Undetected Undetected 11/14/2024 9:01 AM CDT CNFL SARS Coronavirus 2, Source, Rapid Swab, Nasopharynx 11/14/2024 8:56 AM CDT CNFL Swab (Nasopharynx) 11/14/2024 8:54 AM CDT 11/14/2024 8:56 AM CDT Ne Franz APRN, C.N.P. LAB MICROBIOLOGY - GENERAL ORDERABLES Final Result Performing Organization Address [facility] de Phone Number [address] [address], [place] [id number] * Influenza A/B and RSV, PCR, Point of Care (11/14/2024 8:54 AM CDT) Only the most recent of2 resultswithin the time period is included. Influenza A, POCT Negative Negative 11/14/2024 9:33 AM CDT CNFL Influenza B, POCT Negative Negative 11/14/2024 9:33 AM CDT CNFL Resp Syncytial Virus, POCT Negative Negative 11/14/2024 9:33 AM CDT CNFL Swab (Nasopharynx) 11/14/2024 8:54 AM CDT 11/14/2024 8:56 AM CDT us Ne Franz APRN, C.N.P. LAB POCT ORDERAB LES - DEVICE Final Result Performing Organization Address [facility] de Phone Number [address] [address], [facility] in [address] [address] * (ABNORMAL) Blood Gas, Venous, POCT, Blood (11/14/2024 8:48 AM CDT) pH, Venous, POCT, B 7.40 7.32 - 7.43 11/14/2024 8:54 AM CDT CNFL pCO2, Venous, POCT, B 35(L) 41 - 51 mm Hg 11/14/2024 8:54 AM CDT CNFL pO2, Venous, POCT, B 39 Not applicable mm Hg 11/14/2024 8:54 AM CDT CNFL HCO3, Venous, POCT, B 22 Not applicable mmol/L 11/14/2024 8:54 AM CDT CNFL Base Excess, Venous, POCT, B -3 Not applicable mmol/L 11/14/2024 8:54 AM CDT CNFL O2 Saturation, Venous, POCT, B 75 Not applicable % 11/14/2024 8:54 AM CDT CNFL Sample Type, Blood Gas, POCT FLAVIA 11/14/2024 8:54 AM CDT CN[facility] Blood (Blood, Venous) 11/14/2024 8:48 AM CDT 11/14/2024 8:50 AM CDT us Ne Franz APRN, C.N.P. LAB POCT ORDERAB LES - DEVICE Final Result Performing Organization Address 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 Co de Phone Number [facility] [address] [place] [address], [facility] in [address] [address] * (ABNORMAL) NT-Pro B-Type Natriuretic Peptide (BNP) (11/14/2024 8:48 AM CDT) [facility] NT-Pro BNP [address](H) <=540 pg/mL 11/14/2024 9:49 AM CDT CNFL Comment: NT-proBNP values less than 300 pg/mL [...] absence of renal failure. Blood (Blood, Venous) 11/14/2024 8:48 AM CDT 11/14/2024 8:50 AM CDT us Ne Franz APRN, C.N.P. LAB BLOOD ADD-ON Final Result [facility] [address] [place] [address], [address] [address] * (ABNORMAL) Prothrombin Time (PT) (11/14/2024 8:48 AM CDT) Prothrombin Time, P 13.3(H) 9.4 - 12.5 sec 11/14/2024 9:04 AM CDT CNFL INR 1.2 0.9 - 1.1 11/14/2024 9:04 AM CDT CNFL Comment: ----ADDITIONAL INFORMATION---- Standard intensity warfarin therapeutic range: 2.0 to 3.0 High intensity warfarin therapeutic range: 2.5 to 3.5 Blood (Blood, Venous) 11/14/2024 8:48 AM CDT 11/14/2024 8:50 AM CDT Ne Franz APRN, C.N.P. LAB BLOOD ADD-ON Final Result [facility] [address] [place] [address], [address] [address] * (ABNORMAL) CBC with Differential, Blood (11/14/2024 8:48 AM CDT) Only the most recent of2 resultswithin the time period is included. Hemoglobin 9.7(L) 11.6 - 15.0 g/dL 11/14/2024 8:58 AM CDT CNFL Hematocrit 30.9(L) 35.5 - 44.9 % 11/14/2024 8:58 AM CDT CNFL Erythrocytes 3.06(L) 3.92 - 5.13 x10(12)/L 11/14/2024 8:58 AM CDT CN[facility] MCV 101.0(H) 78.2 - 97.9 fL 11/14/2024 8:58 AM CDT CNFL RBC Distrib Width 14.6 12.2 - 16.1 % 11/14/2024 8:58 AM CDT CN[facility] Platelet Count 151(L) 157 - 371 x10(9)/L 11/14/2024 8:58 AM CDT CN[facility] Leukocytes 4.8 3.4 - 9.6 x10(9)/L 11/14/2024 8:58 AM CDT CN[facility] Neutrophils 3.77 1.56 - 6.45 x10(9)/L 11/14/2024 8:58 AM CDT CN[facility] Lymphocytes 0.59(L) 0.95 - 3.07 x10(9)/L 11/14/2024 8:58 AM CDT CNFL Monocytes 0.26 0.26 - 0.81 x10(9)/L 11/14/2024 8:58 AM CDT CNFL Eosinophils 0.16 0.03 - 0.48 x10(9)/L 11/14/2024 8:58 AM CDT CNFL Basophils <0.04 0.01 - 0.08 x10(9)/L 11/14/2024 8:58 AM CDT [facility] Blood (Blood, Venous) 11/14/2024 8:48 AM CDT 11/14/2024 8:50 AM CDT us Ne Franz APRN, C.N.P. LAB BLOOD ADD-ON Final Result Performing Organization Address [facility]/State/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 Co de Phone Number [facility] [address] [place] [id number], [facility] in [address] [address] * (ABNORMAL) Basic Metabolic Panel (11/14/2024 8:48 AM CDT) Potassium, P 4.0 3.6 - 5.2 mmol/L 11/14/2024 9:10 AM CDT CNFL Sodium, P 139 135 - 145 mmol/L 11/14/2024 9:10 AM CDT CNFL Chloride, P 101 98 - 107 mmol/L 11/14/2024 9:10 AM CDT CNFL Bicarbonate, P 21(L) 22 - 29 mmol/L 11/14/2024 9:10 AM CDT CNFL Anion Gap, P 17(H) 7 - 15 11/14/2024 9:10 AM CDT CNFL BUN (Blood Urea Nitrogen), P 68(H) 6 - 21 mg/dL 11/14/2024 9:10 AM CDT CNFL Creatinine 9.08(H) 0.59 - 1.04 mg/dL 11/14/2024 9:10 AM CDT CNFL Estimated GFR (eGFR) <15(L) >=60 mL/min/BSA 11/14/2024 9:10 AM CDT CNFL Comment: Estimated GFR calculated using the 2020 CKD_EPI creatinine equation. Calcium, Total, P 9.7 8.8 - 10.2 mg/dL 11/14/2024 9:10 AM CDT CNFL Glucose, P 221(H) 70 - 140 mg/dL 11/14/2024 9:10 AM CDT CNFL Blood (Blood, Venous) 11/14/2024 8:48 AM CDT 11/14/2024 8:50 AM CDT us Ne Franz APRN, C.N.P. LAB BLOOD ADD-ON Final Result [facility] [address] [place] [id number], [facility] [address] [id number] * Bacterial Culture, Aerobic + Susceptibility (11/01/2024 1:41 PM CDT) Bacterial Culture, Aerobic + Susc No growth after 5 days of incubation. 11/07/2024 9:22 AM CDT DTL Tissue (Vein Segment) 11/01/2024 1:41 PM CDT us Rika Oliveros M.D. LAB MICROBIOLOGY - GENERA L ORDERABLES Final Result [facility] [address] [place] [address], [facility] [address] [place] [address] * Mycobacterial Culture (11/01/2024 1:41 PM CDT) Mycobacterial Culture No growth after 42 days of incubation . 12/14/2024 1:02 AM CDT DTL Tissue (Vein Segment) 11/01/2024 1:41 PM CDT us Rika Oliveros M.D. LAB MICROBIOLOGY - GENERA L ORDERABLES Final Result [facility] [address] [place] [address], [facility] [address] [place] [address] * Fungal Smear (11/01/2024 1:41 PM CDT) Fungal Smear Negative. 11/01/2024 9:54 PM CDT DTL Tissue (Vein Segment) 11/01/2024 1:41 PM CDT us Rika Oliveros M.D. LAB MICROBIOLOGY - GENERA L ORDERABLES Final Result Performing Organization Address City/[facility]/ZIP Co de Phone Number [facility] [address] [place] [address], [facility] [address] [place] [address] * Acid Fast Smear for Mycobacterium (11/01/2024 1:41 PM CDT) Acid Fast Smear For Mycobacterium Negative. 11/02/2024 4:56 AM CDT DTL Vein Segment 11/01/2024 1:41 PM CDT 11/01/2024 2:07 PM CDT Comment:Specimen Source Site : Tissue, RIGHT CEPHALIC VEIN PSEUDOANEURYSM us Rika Oliveros M.D. LAB MICROBIOLOGY - GENERA L ORDERABLES Final Result [facility] [address] [place] [address], [facility] [address] [place] [address] * Gram Stain (11/01/2024 1:41 PM CDT) Gram Stain No organisms seen. White blood cells, Few. 11/01/2024 5:50 PM CDT DTL Tissue (Vein Segment) 11/01/2024 1:41 PM CDT us Rika Oliveros M.D. LAB MICROBIOLOGY - GENERA L ORDERABLES Final Result Performing Organization Address City/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 Co de Phone Number [facility] [address] [place], [place] [id number] [place] [address] [address] [place] [address] * Fungal Culture, Routine (11/01/2024 1:41 PM CDT) Fungal Culture, Routine No growth after 24 days of incubation. 11/26/2024 1:02 AM CDT DTL Tissue (Vein Segment) 11/01/2024 1:41 PM CDT us iRka Oliveros M.D. LAB MICROBIOLOGY - GENERA L ORDERABLES Final Result Performing Organization Address City/[facility]/ZIP Co de Phone Number [facility] [address] [place] [address], [facility] [address] [place] [address] * Bacterial Culture, Anaerobic + Susceptibility (11/01/2024 1:41 PM CDT) Bacterial Culture, Anaerobic + Susc No growth after 14 days of incubation. 11/15/2024 7:44 AM CDT DTL Tissue (Vein Segment) 11/01/2024 1:41 PM CDT us Rika Oliveros M.D. LAB MICROBIOLOGY - GENERA L ORDERABLES Final Result [facility] [address] [place] [address], [place] DTL [facility] [address] [place] [address] * LDA ANE ENDOTRACHEAL AIRWAY (11/01/2024 12:30 PM CDT) Narrative Isa Braun APRN, CRNA, D.N.P. - 11/01/2024 12:30 PM CDT Isa Braun APRN, CRNA, D.N.P. 11/01/2024 1:24 PM Airway Date/Time: 11/01/2024 12:30 PM Performed by: Isa Braun APRN, CRNA, D.N.P. Authorized by: Sylvia Morley M.D. Patient location during procedure: OR / Procedure Area PROCEDURE DETAILS: Mask difficulty assessment: easy mask Final airway type: direct laryngoscopy, intubation Laryngeal Manipulation: no Final airway difficulty of direct laryngoscopy (DL): 0-easy Final best view of glottic structures - Cormack/Lehane Score: grade 1 ETT location: oral Blade type: May 2 Tube size: 7 ETT distance at teeth/gum: 21 Oral tube type: standard ETT Cuffed: yes Number of attempt to successful placement: 1 Airway confirmation: bilateral breath sounds, positive ETCO2 and bilateral chest rise Other previous techniques attempted: none PRE PROCEDURE DETAILS: Pre evaluation for airway management: procedure Urgency: elective Preop assessment of probable difficulty: questionable / suspicious difficult airway Preoxygenation: bag valve mask SEDATION / ANESTHESIA Anesthesia method: anesthesia POST PROCEDURE DETAILS: Procedure outcome: successful Notable Events: no complications us Sylvia Morley M.D. ANESTHESIA ORDERABLES Final Re sult * Specimen-Vascular Surgery Image Exam (11/01/2024 12:00 AM CDT) Narrative [facility] - 11/01/2024 4:49 PM CDT This order has been created and auto-finalized to support the import of images acquired without order. The clinical documentation to support these images can be found on the encounter that produced images. us Provider Not In System IMG NON RAD IMAGING PROCE DURES Final Result [facility] NA * Bacterial Culture, Aerobic + Susceptibility, Urine (10/18/2024 12:16 PM CDT) Urine Culture Urogenital microbiota, susceptibilities not performed per laboratory criteria. 10/19/2024 3:34 PM CDT ECLR Urine (Urine, Midstream) 10/18/2024 12:16 PM CDT 10/18/2024 9:14 PM CDT Comment:Specimen Source Site : Urine Min Montero P.A.-C., P.A. LAB MICROBIOLOGY - GENERAL ORDERABLES Final Result [facility] [address] [place] [address], [place] E[facility] [place] [address] * (ABNORMAL) Urinalysis, with Microscopic: Urine, Midstream (10/18/2024 12:16 PM CDT) Source Urine, Urine, Midstream 10/18/2024 12:19 PM CDT CNFL Clarity Slightly Cloudy(A) Clear 10/18/2024 12:22 PM CDT CNFL Color Yellow 10/18/2024 12:22 PM CDT CNFL Comment: ----REFERENCE VALUE---- Colorless Yellow Pat Blood Moderate(A) Negative 10/18/2024 12:22 PM CDT CNFL Nitrite Negative Negative 10/18/2024 12:22 PM CDT CNFL Leukocyte Esterase Small(A) Negative 10/18/2024 12:22 PM CDT CNFL Protein >=300(A) mg/dL 10/18/2024 12:22 PM CDT CNFL Comment: ----REFERENCE VALUE---- Negative Trace Glucose 100(A) Negative mg/dL 10/18/2024 12:22 PM CDT CNFL Ketones, QI(U) Negative Negative mg/dL 10/18/2024 12:22 PM CDT CNFL Bilirubin Negative Negative 10/18/2024 12:22 PM CDT CNFL pH 8.5(A) 5.0 - 8.0 10/18/2024 12:22 PM CDT CNFL Specific [place] 1.020 1.001 - 1.035 10/18/2024 12:22 PM CDT CNFL Urobilinogen 0.2 0.2 - 1.0 mg/dL 10/18/2024 12:22 PM CDT CNFL White Blood Cells 11-20(A) /hpf 10/18/2024 12:39 PM CDT CNFL Comment: ----REFERENCE VALUE---- Males: 0-3 Females: 0-10 Unknown: 0-10 Red Blood Cells 3-10(A) 0 - 2 /hpf 12:39 PM CDT CNFL Dysmorphic Red Blood Cells <=25 <=25 % 10/18/2024 12:39 PM CDT CNFL Squamous Cells 11-20 /hpf 10/18/2024 12:39 PM CDT CNFL Transitional Cells Occ-3(A) None Seen /hpf 10/18/2024 12:39 PM CDT CNFL Renal Cells Occ-3(A) None Seen /hpf 10/18/2024 12:39 PM CDT CNFL Bacteria Present(A) None Seen 10/18/2024 12:39 PM CDT CNFL Urine (Urine, Midstream) 10/18/2024 12:16 PM CDT 10/18/2024 12:19 PM CDT Min Montero P.A.-C., P.A. LAB URINE ORDERA BLES Final Result [facility] [address] [place] [address], [place] CNFL [facility] in [address] [address] * CT Abdomen Pelvis without IV Contrast (10/18/2024 11:05 AM CDT) Anatomical Region Laterality Modality Abdomen, Pelvis, Abdominal R ST LOS, Abdominal ARZ LOS, Abdominal FLA LOS N/A Computed Tomography Impressions 10/18/2024 11:18 AM CDT 1. No acute findings in the abdomen and pelvis on CT. 2. 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 3. Atrophic bilateral [place] kidneys with cysts, including a Bosniak 2F cyst in the lower pole of the right kidney which was better characterized on CT performed on 03/18/2023 but appears grossly unchanged in size. 4. Additional nonacute/chronic findings as detailed. Narrative 10/18/2024 11:18 AM CDT EXAM: CT ABDOMEN PELVIS WITHOUT IV CONTRAST COMPARISON: CT abdomen/pelvis without IV contrast 08/26/2024 FINDINGS: Normal caliber small bowel and colon. Small duodenal diverticulum. A few colonic diverticula. Normal appendix. Cholelithiasis. Atrophic bilateral [place] kidneys with cysts, including a Bosniak 2F cyst in the lower pole of the right kidney which was better characterized on CT performed on 03/18/2023 but appears grossly unchanged and a few cysts which contain hemorrhagic/proteinaceous debris. Bilateral renal vascular calcifications. Hysterectomy. Multiple small urinary bladder diverticula. The solid organs are otherwise unremarkable on this noncontrast examination. Small amount of free fluid in the pelvis. Advanced calcified atherosclerotic disease. 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 No adenopathy. Posterior instrumented fusion of L4-L5 with decompressive laminectomies. Scattered degenerative changes. Healing right inferior pubic ramus fracture. Demineralization. Old healed left rib fractures. Small bilateral pleural effusions with small amount of interstitial edema in the lower lungs. Procedure Note Bala Love M.D. - 10/18/2024 EXAM: CT ABDOMEN PELVIS WITHOUT IV CONTRAST COMPARISON: CT abdomen/pelvis without IV contrast 08/26/2024 FINDINGS: Normal caliber small bowel and colon. Small duodenal diverticulum. A fewcolonic diverticula. Normal appendix. Cholelithiasis. Atrophic bilateral [place] kidneys with cysts, including aBosniak 2F cyst in the lower pole of the right kidney which was bettercharacterized on CT performed on 03/18/2023 but appears grossly unchangedand a few cysts which contain hemorrhagic/proteinaceous debris. Bilateral renal vascular calcifications.Hysterectomy. Multiple small urinary bladder diverticula. The solid organsare otherwise unremarkable on this noncontrast examination. Small amountof free fluid in the pelvis. Advanced calcified atherosclerotic disease. Stable borderline aneurysmaldilatation of the infrarenal abdominal aorta measuring up to 30 mm. Noadenopathy. Posterior instrumented fusion of L4-L5 with decompressive laminectomies.Scattered degenerative changes. Healing right inferior pubic ramusfracture. Demineralization. Old healed left rib fractures. Small bilateralpleural effusions with small amount of interstitial edema in the lower lungs. IMPRESSION: 1. No acute findings in the abdomen and pelvis on CT. 2. Stable borderline aneurysmal dilatation of the infrarenal abdominalaorta measuring up to 30 mm. 3. Atrophic bilateral [place] kidneys with cysts, including a Bosniak 2Fcyst in the lower pole of the right kidney which was better characterizedon CT performed on 03/18/2023 but appears grossly unchanged in size. 4. Additional nonacute/chronic findings as detailed. Min Montero P.A.-C., P.A. [facility] PROCEDURE S Final Result * DX Chest AP or PA and Lateral 2 Views (10/18/2024 11:05 AM CDT) Anatomical Region Laterality Modality Chest, Thoracic RST LOS, Tho racic ARZ LOS, Thoracic FLA LOS N/A Digital Radiography Impressions 10/18/2024 11:07 AM CDT Since 09/25/2024, slight improvement in the mid and lower lung predominant interstitial opacities favored to represent resolving edema. Decreased size of the now trace bilateral pleural effusions. Remainder not significantly changed. Right IJ CVC with tip in the right atrium. Aortic calcification. Mild degenerative changes of the spine. Demineralization. Chest otherwise negative. Narrative 10/18/2024 11:07 AM CDT EXAM: DX CHEST AP OR PA AND LATERAL 2 VIEWS Procedure Note Bala oLve M.D. - 10/18/2024 EXAM: DX CHEST AP OR PA AND LATERAL 2 VIEWS IMPRESSION: Since 09/25/2024, slight improvement in the mid and lower lung predominantinterstitial opacities favored to represent resolving edema. Decreasedsize of the now trace bilateral pleural effusions. Remainder notsignificantly changed. Right IJ CVC with tip in the right atrium. Aortic calcification. Mild degenerativechanges of the spine. Demineralization. Chest otherwise negative. Min Montero P.A.-C., P.A. IMG DIAGNOSTIC I MAGING PROCEDURES Final Result * (ABNORMAL) Lipase (10/18/2024 10:45 AM CDT) Lipase, P 123(H) 13 - 60 U/L 10/18/2024 11:09 AM CDT CNFL Blood (Blood, Venous) 10/18/2024 10:45 AM CDT 10/18/2024 10:50 AM CDT Min Montero P.A.-C., P.A. LAB BLOOD ADD-ON Final Result Performing Organization Address City/State/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 Co de Phone Number [facility] [address] [place] [address], [place] CNFL [facility] [place] [address] * (ABNORMAL) Comprehensive Metabolic Panel (10/18/2024 10:45 AM CDT) Potassium, P 4.0 3.6 - 5.2 mmol/L 10/18/2024 11:09 AM CDT CNFL Sodium, P 137 135 - 145 mmol/L 10/18/2024 11:09 AM CDT CNFL Chloride, P 96(L) 98 - 107 mmol/L 10/18/2024 11:09 AM CDT CNFL Bicarbonate, P 25 22 - 29 mmol/L 10/18/2024 11:09 AM CDT CNFL Anion Gap, P 16(H) 7 - 15 10/18/2024 11:09 AM CDT CNFL BUN (Blood Urea Nitrogen), P 38(H) 6 - 21 mg/dL 10/18/2024 11:09 AM CDT CNFL Creatinine 5.94(H) 0.59 - 1.04 mg/dL 10/18/2024 11:09 AM CDT CNFL Estimated GFR (eGFR) <15(L) >=60 mL/min/BS A 10/18/2024 11:09 AM CDT CNFL Comment: Estimated GFR calculated using the 2020 CKD_EPI creatinine equation. Calcium, Total, P 9.9 8.8 - 10.2 mg/dL 10/18/2024 11:09 AM CDT CNFL Glucose, P 135 70 - 140 mg/dL 10/18/2024 11:09 AM CDT CNFL Protein, Total, P 6.9 6.3 - 7.9 g/dL 10/18/2024 11:09 AM CDT CNFL Albumin, P 4.2 3.5 - 5.0 g/dL 10/18/2024 11:09 AM CDT CNFL Aspartate Aminotransferase (AST), P 24 8 - 43 U/L 10/18/2024 11:09 AM CDT CNFL Alkaline Phosphatase, P 229(H) 35 - 104 U/L 10/18/2024 11:09 AM CDT CNFL Alanine Aminotransferase (ALT), P 15 7 - 45 U/L 10/18/2024 11:09 AM CDT CNFL Bilirubin, Total, P 0.5 0.0 - 1.2 mg/dL 10/18/2024 11:09 AM CDT CNFL Blood (Blood, Venous) 10/18/2024 10:45 AM CDT 10/18/2024 10:50 AM CDT Min Montero P.A.-C., P.A. LAB BLOOD ADD-ON Final Result [facility] [address] [place] [address], [place] CNFL [facility] in [address] [address] * CT Chest without IV Contrast (08/26/2024 3:30 AM CDT) Anatomical Region Laterality Modality Chest, Thoracic RST LOS, Tho racic ARZ LOS, Thoracic FLA LOS N/A Computed Tomography Impressions 08/26/2024 3:42 AM CDT 1. Acute mildly displaced fracture through the right inferior pubic ramus. Otherwise no acute traumatic findings in the chest, abdomen or pelvis. 2. Extensive smooth interlobular septal thickening throughout both lungs with patchy groundglass opacities bilaterally, concerning for developing pulmonary edema. Narrative 08/26/2024 3:42 AM CDT EXAM: CT CHEST WITHOUT IV CONTRAST, CT ABDOMEN PELVIS WITHOUT IV CONTRAST COMPARISON: CTA of the chest, abdomen and pelvis from 04/13/2022. FINDINGS: CHEST: No acute fractures. No pneumothorax or pulmonary contusion. Diffuse calcified atherosclerotic disease with coronary artery calcifications. Mild cardiomegaly. Dense coronary artery calcifications. Extensive smooth interlobular septal thickening throughout both lungs. Scattered groundglass opacities predominantly in the lower lobes bilaterally. No pleural effusion. No mediastinal or hilar adenopathy. No acute fracture or traumatic malalignment of the thoracic spine. Scattered degenerative disc space narrowing. ABDOMEN/PELVIS: Acute mildly displaced fracture through the right inferior pubic ramus. Otherwise no acute pelvic fractures. Cholelithiasis. Bilateral renal cysts, some of which are hyperdense, likely containing hemorrhagic or proteinaceous material. The liver, spleen, pancreas, adrenal glands and kidneys are otherwise normal. Normal caliber small large bowel. No drainable fluid collections. No abdominal or pelvic adenopathy. Postoperative changes of L4-5 posterior instrumented fusion with decompressive laminectomy. No acute fracture or traumatic malalignment of the lumbar spine. Procedure Note Bhupinder Gaona M.D. - 08/26/2024 EXAM: CT CHEST WITHOUT IV CONTRAST, CT ABDOMEN PELVIS WITHOUT IVCONTRAST COMPARISON: CTA of the chest, abdomen and pelvis from 04/13/2022. FINDINGS: CHEST: No acute fractures. No pneumothorax or pulmonary contusion. Diffusecalcified atherosclerotic disease with coronary artery calcifications.Mild cardiomegaly. Dense coronary artery calcifications. Extensive smooth interlobular septal thickening throughout both lungs.Scattered groundglass opacities predominantly in the lower lobesbilaterally. No pleural effusion. No mediastinal or hilar adenopathy. Noacute fracture or traumatic malalignment of the thoracic spine. Scattered degenerative disc space narrowing. ABDOMEN/PELVIS: Acute mildly displaced fracture through the right inferiorpubic ramus. Otherwise no acute pelvic fractures. Cholelithiasis.Bilateral renal cysts, some of which are hyperdense, likely containinghemorrhagic or proteinaceous material. The liver, spleen, pancreas, adrenal glands and kidneys are otherwise normal.Normal caliber small large bowel. No drainable fluid collections. Noabdominal or pelvic adenopathy. Postoperative changes of L4-5 posteriorinstrumented fusion with decompressive laminectomy. No acute fracture or traumatic malalignment of the lumbarspine. IMPRESSION: 1. Acute mildly displaced fracture through the right inferior pubic ramus.Otherwise no acute traumatic findings in the chest, abdomen or pelvis. 2. Extensive smooth interlobular septal thickening throughout both lungswith patchy groundglass opacities bilaterally, concerning for developingpulmonary edema. Marino Mcintyre M.D. IMG CT PROCEDURE S Final Result * Hemoglobin A1c (08/25/2024 1:58 PM CDT) Hemoglobin A1c, B 5.4 4.2 - 5.6 % 08/25/2024 2:13 PM CDT [facility] Blood (Blood, Venous) 08/25/2024 1:58 PM CDT 08/25/2024 1:59 PM CDT Allyn Ryan M.D. LAB BLOOD ADD-ON Final Result [facility] [address] [place] [address], [facility] in [address] [address] * Hepatitis B Surface Antigen (04/21/2024 9:09 AM [facility]) HBs Antigen, S Negative Negative 04/21/2024 1:22 PM [facility] Blood (Blood, Venous) 04/21/2024 9:09 AM [facility] 04/21/2024 12:30 PM [facility] Shahrzad Jean Baptiste APRN, C.N.P. , M.S.N. LAB MICROBIOLOGY - BLOOD ORDERABLES Final Result Performing Organization Address City/[facility]/ZIP Co de Phone Number [facility] [address] [place] [address] [facility] [address] [place] [address] * (ABNORMAL) Albumin, Random, Urine (01/08/2023 12:27 PM CDT) Microalbumin 890.9 mg/L 01/08/2023 1:09 PM CDT CNFL Creatinine 145 mg/dL 01/08/2023 12:49 PM CDT CNFL Albumin/Creatinin e Ratio 614(H) <25 mg/g 01/08/2023 1:09 PM CDT CNFL Urine (Urine, Midstream) 01/08/2023 12:27 PM CDT 01/08/2023 12:36 PM CDT Allyn Ryan M.D. LAB URINE ORDERAB LES Final Result Performing Organization Address City/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 Co de Phone Number [facility] [address] [place] [address], [facility] [address] [address] * BI Breast Screening Bilateral (06/08/2015 10:33 AM [facility]) Anatomical Region Laterality Modality Breast Bilateral Mammography 06/08/2015 10:3 3 AM [facility] Impressions 06/08/2015 11:00 AM [facility] Negative. RECOMMENDATION: Annual screening mammography. BI-RADS ASSESSMENT: 1: Negative. LETTER: L1/2S Electronically signed by: Miguel Rick MD [id number] 08-Jun-2015 11:00 Narrative 06/08/2015 11:00 AM [facility] 08-Jun-2015 10:33:00 Exam: Mammo Screen Bilat Indications: screening ORIGINAL REPORT - 08-Jun-2015 11:00:00 EXAM: Digital Screening Mammography Bilateral Computer-aided detection equipment was used during interpretation. COMPARISON: Prior exams were available for comparison. DENSITY: b. There are scattered areas of fibroglandular density. FINDINGS: No mammographic findings of malignancy. Procedure Note Merline, Miguel I, M.D. - 08/06/2017 08-Jun-2015 10:33:00 Exam: Mammo Screen Bilat Indications: screening ORIGINAL REPORT - 08-Jun-2015 11:00:00 EXAM: Digital Screening Mammography Bilateral Computer-aided detection equipment was used during interpretation. COMPARISON: Prior exams were available for comparison. DENSITY: b. There are scattered areas of fibroglandular density. FINDINGS: No mammographic findings of malignancy. IMPRESSION: Negative. RECOMMENDATION: Annual screening mammography. BI-RADS ASSESSMENT: 1: Negative. LETTER: L1/2S Electronically signed by: Miguel Rick MD [id number] 08-Jun-2015 11:00 Allyn Ryan M.D. IMG BI PROCEDURES Final Result from Last 3 Months or Most Recently Relevant to Health Maintenance Insurance MEDICARE [facility] Advance Directives For more information, please contact: [phone] Documents on File Type Date Recorded Patient [employer] Expl anation Advance Directives 07/19/2017 3:32 AM Radha Moore Sh ea HCPOA/ADVOCATE/AGENT/REP RESENTATIVE/SURROGATE Advance Directives 06/22/2015 12:00 AM Leg acy document. See document viewer. Advance Directives 06/22/2015 12:00 AM Leg acy document. See document viewer. * Full Code (Latest Code Status on File) Date Activated Date Inactivated Comments 11/14/2024 12:57 PM 11/17/2024 4:01 PM Question Answer Comments Full Code: Discussed * Full Code Date Activated Date Inactivated Comments 11/01/2024 11:01 AM 11/01/2024 8:08 PM Question Answer Comments Full Code: Discussed * Full Code Date Activated Date Inactivated Comments 08/26/2024 4:06 PM 08/27/2024 6:17 PM Question Answer Comments Full Code: Not Discussed Due to: Not medically appropriate * Full Code Date Activated Date Inactivated Comments 06/02/2024 12:23 PM 06/02/2024 2:32 PM Question Answer Comments Full Code: Discussed * Full Code Date Activated Date Inactivated Comments 04/22/2024 12:54 PM 04/30/2024 3:56 PM Question Answer Comments Full Code: Discussed Healthcare Agents on File Name Relationship Healthcare Agent Relationshi p Communication Radha Medina Daughter Health Care Agent [email or web address] Femi Medina Son First Alternate Health Care Agent Care Teams Rib Cutter Relationship Specialty Start Date End Date Allyn Alfredo M.D. [id number] [id number] PCP - General Family Medicine 04/05/21
--- OUTSIDE RECORDS SUMMARY | 2025-01-16 13:57 | XMS_ITS | Encounter Summary ---
Author Organization [facility] Address [address] [place] [address] Care Team Providers Care Blood Bank Laboratory Technician Name Role Phone Allyn Alfredo M.D. Primary Care Pro vider Reason for Visit * Reason Onset Date Comments Rx Prior Authorization 11/21/2024 Encounter Details Date Type Department Care Team (Latest Contact Info) Description 11/21/2024 Clinical Communication Division of Nephrology and Hypertension, [facility], in [place], [place] [address] [place] [address] Jacklyn Mccarthy, ANU, C.N.P., M.S.N. [address] [place] [phone] Rx Prior Authorization Social History Tobacco Use Types Packs/Day Years [...] for daily living? No 12/15/2024 [facility] Utilities Answer Date Recorded In the past 12 months has th e electric, gas, oil, or water company threatened to shut off services in your home? No 12/15/2024 Depression Answer Date Recor ded PHQ-9 Total Score (max 27) 0 02/23 Housing Stability Answer Date Recorded What is your living situation today? I have a [facility] place to live 12/15/2024 Education Answer Date Recorded What is the highest level of school you have completed or the highest degree you have received? Some college, no degree 10/24/2018 Comments No Sex and Gender Information Value Date Recorded Sex Assigned at Female 03/27/2017 3:30 PM ADVERTISING ACCOUNT MANAGER Legal Sex Female 10:26 AM ADVERTISING ACCOUNT MANAGER Gender Identity Female 03/27/2017 3:30 PM ADVERTISING ACCOUNT MANAGER Sexual Orientation Straight 03/27/2017 3: 30 PM ADVERTISING ACCOUNT MANAGER Occupation Industry Job Start Date Job End Date Not on file Not on file Not on file Not on file documented as of this encounter Plan of Treatment Upcoming Encounters Date Type Department Care Team (Latest Contact Info) Description 01/17/2025 9:15 AM CDT Appointment Department of Radiology, [facility], in [place], [place] [address] [place] [address] Mccarthy, Jacklyn Vazquez APRN, C.N.P., M.S.N. [address] [place] [phone] Discharge Disposition: Home or Self Care 01/17/2025 3:30 PM CDT Clinical Support Department of Rehabilitation Services in [address] [phone] Wilfrid Lincoln Jr., D.O. [address] [place] [phone] Sondra Ibarra P.T., D.P.T. 01/24/2025 1:15 PM CDT Clinical Support Department of Rehabilitation Services in [address] [phone] Wilfrid Lincoln Jr., D.O. [address] [place] [phone] Sondra Ibarra P.T., D.P.T. 02/09/2025 10:10 AM CDT Appointment Department of Laboratory Medicine in [address] [phone] Allyn Alfredo M.D. [address] [place] [phone] 02/09/2025 10:40 AM CDT Office Visit Department of Family Medicine, [facility], in [address] [phone] Allyn Alfredo M.D. [address] [place] [phone] Discharge Disposition: Home or Self Care 03/06/2025 8:45 AM CDT Office Visit Department of Orthopedic Surgery in [address] [phone] Cindy Walker D.P.M. [address] [facility] [place] [phone] Discharge Disposition: Home or Self Care 04/11/2025 4:00 PM ADVERTISING ACCOUNT MANAGER Telemedicine Department of Sleep Medicine in [place], [place] [address] [phone] Emilee Emanuel APRN, C.N.P., D.N.P., M.S.N. [address] [phone] documented as of this encounter Visit Diagnoses Not on filedocumented in this encounter Additional Health Concerns Assessment Noted Time PHQ-9 Depression Total Score: 0 02/24/20 23 1:03 PM CDT documented as of this encounter Care Teams Blood Bank Laboratory Technician Relationship Specialty Start Date End Date Allyn Alfredo M.D. [address] [place] [phone] PCP - General Family Medicine 04/05/21 documented as of this encounter
--- OUTSIDE RECORDS SUMMARY | 2025-01-16 13:57 | XMS_ITS | Encounter Summary ---
Author Organization [facility] Address [address] [place] [address] Care Team Providers Care Impregnating Helper Name Role Phone Allyn Alfredo M.D. Primary Care Pro vider Reason for Visit * Reason Onset Date Comments Med Refill 11/22/2024 Encounter Details Date Type Department Care Team (Late st Contact Info) Description 11/22/2024 Refill Division of Nephrology and Hypertension in [place], [place] [address] [place] [phone] Wilfrid Lincoln Jr., D.O. [address] [place] [phone] Med Refill Social History Tobacco Use Types [...] things needed for daily living? No 12/15/2024 [facility] Utilities Answer Date Recorded In the past 12 months has th e [employer], gas, oil, or water [employer] threatened to shut off services in your home? No 12/15/2024 Depression Answer Date Recor ded PHQ-9 Total Score (max 27) 0 02/23 Housing Stability Answer Date Recorded What is your living situation today? I have a [facility] place to live 12/15/2024 Education Answer Date Recorded What is the highest level of school you have completed or the highest degree you have received? Some college, no degree 10/24/2018 Comments No Sex and Gender Information Value Date Recorded Sex Assigned at Female 03/27/2017 3:30 PM TELEPHONE STATION REPAIRER Legal Sex Female 10:26 AM TELEPHONE STATION REPAIRER Gender Identity Female 03/27/2017 3:30 PM TELEPHONE STATION REPAIRER Sexual Orientation Straight 03/27/2017 3: 30 PM TELEPHONE STATION REPAIRER Occupation Industry Job Start Date Job End Date Not on file Not on file Not on file Not on file documented as of this encounter Miscellaneous Notes * Telephone Encounter - Julienne Washingtontracey Echvearria - 11/22/2024 12:14 PM CDT Patient states Dr. Lincoln sent in a prescription for her Eliquis; however, it doubled in cost because of the way he wrote it. She would like a 5 mg tablet that she will cut herself. The way it is written right now, a 2.5 mg tablet, will make her have to pay even more. Please send a new RX to [facility]. She asks that this be done right away as she is nearly out. Thank you! documented in this encounter Plan of Treatment Upcoming Encounters Date Type Department Care Team (Latest Contact Info) Description 01/17/2025 9:15 AM CDT Appointment Department of Radiology, [facility] in [place], [place] [address] [place] [phone] Jacklyn Mccarthy APRN, C.N.P., M.S.N. [address] [place] [phone] Discharge Disposition: Home or Self Care 01/17/2025 3:30 PM CDT Clinical Support Department of Rehabilitation Services in [address] [phone] Wilfrid Lincoln Jr., D.OLeida [address] [place] [phone] Sondra Ibarra P.TLeida, D.P.T. 01/24/2025 1:15 PM CDT Clinical Support Department of Rehabilitation Services in [address] [phone] Wilfrid Lincoln Jr., D.O. [address] [place] [phone] Sondra Ibarra P.T., D.P.T. 02/09/2025 10:10 AM CDT Appointment Department of Laboratory Medicine in [address] [place] [phone] Allyn Alfredo M.D. [address] [place] [phone] 02/09/2025 10:40 AM CDT Office Visit Department of Family Medicine, [facility], in [address] [phone] Byers Allyn Ryan M.D. [address] [place] [phone] Discharge Disposition: Home or Self Care 03/06/2025 8:45 AM CDT Office Visit Department of Orthopedic Surgery in [address] [phone] Cindy Walker D.PLeidaMLeida [address] [facility] [place] [address] Discharge Disposition: Home or Self Care 04/11/2025 4:00 PM TELEPHONE STATION REPAIRER Telemedicine Department of Sleep Medicine in [place], [place] [address] [phone] Emilee Emanuel APRN, C.N.P., D.N.P., M.S.N. [address] [phone] documented as of this encounter Visit Diagnoses Not on filedocumented in this encounter Additional Health Concerns Assessment Noted Time PHQ-9 Depression Total Score: 0 02/24/20 23 1:03 PM CDT documented as of this encounter Care Teams Impregnating Helper Relationship Specialty Start Date End Date Allyn Alfredo M.D. [address] [place] [phone] PCP - General Family Medicine 04/05/21 documented as of this encounter
--- OUTSIDE RECORDS SUMMARY | 2025-01-16 13:57 | XMS_ITS | Encounter Summary ---
Author Organization [facility] Address [address] [place] [address] Care Team Providers Care Critical Care Unit Nurse Name Role Phone Allyn Alfredo M.D. Primary Care Pro vider Encounter Details Date Type Department Care Team (Late st Contact Info) Description 11/23/2024 Orders Only Division of Nephrology and Hypertension in [place], [place] [address] [place] [phone] Jacklyn Mccarthy, ANU, C.N.P., M.S.N. [address] [place] [phone] Social History Tobacco Use Types Packs/Day Years Used Date Smoking Tobacco: Former Cigarettes 1 51 0 05/19/1961 - 2012 Passive Smoke Exposure: Yes Smokeless Tobacco: Never Alcohol Use Standard Drinks/Week Comments Not Currently 0 (1 standard drink = 0.6 oz pure alcohol) very rarely do I have a drink [facility] Utilities Answer Date Recorded In the past [...] your living situation today? I have a [employer] place to live 11/15/2024 Education Answer Date Recorded What is the highest level of school you have completed or the highest degree you have received? Some college, no degree 10/24/2018 Comments No Sex and Gender Information Value Date Recorded Sex Assigned at Female 03/27/2017 3:30 PM COMMERCIAL CLEANER Legal Sex Female 10:26 AM COMMERCIAL CLEANER Gender Identity Female 03/27/2017 3:30 PM COMMERCIAL CLEANER Sexual Orientation Straight 03/27/2017 3: 30 PM COMMERCIAL CLEANER Occupation Industry Job Start Date Job End Date Not on file Not on file Not on file Not on file documented as of this encounter Plan of Treatment Upcoming Encounters Date Type Department Care Team (Latest Contact Info) Description 01/17/2025 9:15 AM CDT Appointment Department of Radiology, [facility], in [place], [place] [address] [place] [address] Jacklyn Mccarthy, CUSTOMER SERVICE DISPATCHER, C.N.P., M.S.N. [address] [place] [phone] Discharge Disposition: Home or Self Care 01/17/2025 3:30 PM CDT Clinical Support Department of Rehabilitation Services in [address] [phone] Wilfrid Lincoln Jr., D.O. [address] [place] [phone] Sondra Ibarra P.T., D.P.T. 01/24/2025 1:15 PM CDT Clinical Support Department of Rehabilitation Services in [address] [phone] Wilfrid Lincoln Jr., D.O. [address] [place] [phone] Sondra Ibarra P.T., D.P.T. 02/09/2025 10:10 AM CDT Appointment Department of Laboratory Medicine in [address] [phone] Allyn Alfredo M.D. [address] [place] [phone] 02/09/2025 10:40 AM CDT Office Visit Department of Family Medicine, [facility], in [address] [phone] Allyn Alfredo M.D. [address] [place] [phone] Discharge Disposition: Home or Self Care 03/06/2025 8:45 AM CDT Office Visit Department of Orthopedic Surgery in [address] [phone] Cindy Walker D.P.M. [address] [place] [address] Discharge Disposition: Home or Self Care 04/11/2025 4:00 PM COMMERCIAL CLEANER Telemedicine Department of Sleep Medicine in [place], [place] 0 [place] [phone] Emilee Emanuel APRN, C.N.P., D.N.P., M.S.N. 2[address] [place] [phone] documented as of this encounter Visit Diagnoses Not on filedocumented in this encounter Additional Health Concerns Assessment Noted Time PHQ-9 Depression Total Score: 0 02/24/20 23 1:03 PM CDT documented as of this encounter Care Teams Critical Care Unit Nurse Relationship Specialty Start Date End Date Allyn Alfredo M.D. [address] [place] [phone] PCP - General Family Medicine 04/05/21 documented as of this encounter
--- OUTSIDE RECORDS SUMMARY | 2025-01-16 13:57 | XMS_ITS | Encounter Summary ---
Author Organization [facility] Address [address] [place] [address] Care Team Providers Care Structural Steel Painter Name Role Phone Allyn Alfredo M.D. Primary Care Pro vider Encounter Details Date Type Department Care Team (Latest Contact Info) Description 08/26/2024 Intake [facility] Social History Tobacco Use Types Packs/Day Years Used Date Smoking Tobacco: Former Cigarettes 1 51 0 05/19/1961 - 2012 Passive Smoke Exposure: Yes Smokeless Tobacco: Never Alcohol Use Standard Drinks/Week Comments Not Currently 0 (1 standard drink = 0.6 oz pure alcohol) very rarely do I have a drink [facility] Utilities Answer Date Recorded In the past 12 months has [facility] [employer], gas, oil, or water [employer] threatened to shut off services in your [...] your living situation today? I have a [facility] place to live 08/26/2024 Education Answer Date Recorded What is the highest level of school you have completed or the highest degree you have received? Some college, no degree 10/24/2018 Comments No Sex and Gender Information Value Date Recorded Sex Assigned at Female 03/27/2017 3:30 PM WINDING MACHINE OPERATOR Legal Sex Female 10:26 AM WINDING MACHINE OPERATOR Gender Identity Female 03/27/2017 3:30 PM WINDING MACHINE OPERATOR Sexual Orientation Straight 03/27/2017 3: 30 PM WINDING MACHINE OPERATOR Occupation Industry Job Start Date Job End Date Not on file Not on file Not on file Not on file documented as of this encounter Plan of Treatment Upcoming Encounters Date Type Department Care Team (Latest Contact Info) Description 01/17/2025 9:15 AM CDT Appointment Department of Radiology, [facility], in [place], [place] [address] [place] [address] Jacklyn Mccarthy, ENVIRONMENTAL SUSTAINABILITY MANAGER, C.N.P., M.S.N. 200 [place] [phone] Discharge Disposition: Home or Self Care 01/17/2025 3:30 PM CDT Clinical Support Department of Rehabilitation Services in [address] [phone] Wilfrid Lincoln Jr., D.O. [address] [place] [phone] Sondra Ibarra P.T., D.P.T. 01/24/2025 1:15 PM CDT Clinical Support Department of Rehabilitation Services in [address] [phone] Wilfrid Lincoln Jr., D.O. 200 [place] [phone] Sondra Ibarra P.T., D.P.T. 02/09/2025 10:10 AM CDT Appointment Department of Laboratory Medicine in [address] [phone] Allyn Alfredo M.D. [address] [place] [phone] 02/09/2025 10:40 AM CDT Office Visit Department of Family Medicine, [facility], in [address] [phone] Allyn Alfredo M.D. [address] [place] [phone] Discharge Disposition: Home or Self Care 03/06/2025 8:45 AM CDT Office Visit Department of Orthopedic Surgery in [address] [phone] Cindy Walker D.P.MLeida [address] [place] [phone] Discharge Disposition: Home or Self Care 04/11/2025 4:00 PM WINDING MACHINE OPERATOR Telemedicine Department of Sleep Medicine in [place], [place] [address] [place] [phone] Emilee Emanuel APRN, C.N.P., D.N.P., M.S.N. 2[address] [place] [phone] documented as of this encounter Visit Diagnoses Not on filedocumented in this encounter Additional Health Concerns Infection Onset Date Last Indicated Resolved Time COVID19 Pending 08/26/2024 08/26/2024 08/26/2024 1 0:47 AM CDT COVID19 Pending 10/18/2024 10/18/2024 10/18/2024 1 1:51 AM CDT COVID19 Pending 11/14/2024 11/14/2024 11/14/2024 9 :22 AM CDT Assessment Noted Time PHQ-9 Depression Total Score: 0 02/24/20 23 1:03 PM CDT documented as of this encounter Care Teams Structural Steel Painter Relationship Specialty Start Date End Date Allyn Alfreod M.D. [address] [phone] PCP - General Family Medicine 04/05/21 documented as of this encounter
--- OUTSIDE RECORDS SUMMARY | 2025-01-16 13:57 | XMS_ITS | Encounter Summary ---
Author Organization [facility] Address [address] [place] [address] Care Team Providers Care Warehouse Shipper Name Role Phone Allyn Alfredo M.D. Primary Care Pro vider Encounter Details Date Type Department Care Team (Late st Contact Info) Description 11/17/2024 Orders Only Division of Nephrology and Hypertension in [place], [place] [address] [place] [phone] Jacklyn Mccarthy, ANU, C.N.P., M.S.N. [address] [place] [phone] Social History Tobacco Use Types Packs/Day Years Used Date Smoking Tobacco: Former Cigarettes 1 51 0 05/19/1961 - 2012 Passive Smoke Exposure: Yes Smokeless Tobacco: Never Alcohol Use Standard Drinks/Week Comments Not Currently 0 (1 standard drink = 0.6 oz pure alcohol) very rarely do I have a drink [facility] Utilities Answer Date Recorded In the past [...] your living situation today? I have a [facility] place to live 11/15/2024 Education Answer Date Recorded What is the highest level of school you have completed or the highest degree you have received? Some college, no degree 10/24/2018 Comments No Sex and Gender Information Value Date Recorded Sex Assigned at Female 03/27/2017 3:30 PM SOLUTION MANAGER Legal Sex Female 10:26 AM SOLUTION MANAGER Gender Identity Female 03/27/2017 3:30 PM SOLUTION MANAGER Sexual Orientation Straight 03/27/2017 3: 30 PM SOLUTION MANAGER Occupation Industry Job Start Date Job End Date Not on file Not on file Not on file Not on file documented as of this encounter Plan of Treatment Upcoming Encounters Date Type Department Care Team (Latest Contact Info) Description 01/17/2025 9:15 AM CDT Appointment Department of Radiology, [facility], in [place], [place] [address] [place] [address] Jacklyn Mccarthy, PURLER, C.N.P., M.S.N. [address] [place] [phone] Discharge Disposition: Home or Self Care 01/17/2025 3:30 PM CDT Clinical Support Department of Rehabilitation Services in [address] [phone] Wilfrid Lincoln Jr., D.O. [address] [place] [phone] Sondra Ibarra P.T., D.P.T. 01/24/2025 1:15 PM CDT Clinical Support Department of Rehabilitation Services in [address] [phone] Wilfrid Lincoln Jr., D.O. [address] [place] [phone] Sondra Ibarra P.T., D.P.T. 02/09/2025 10:10 AM CDT Appointment Department of Laboratory Medicine in [address] [phone] Allyn Alfredo M.D. [address] [place] [phone] 02/09/2025 10:40 AM CDT Office Visit Department of Family Medicine, [facility], in [address] [phone] Allyn Alfredo M.D. [address] [place] [phone] Discharge Disposition: Home or Self Care 03/06/2025 8:45 AM CDT Office Visit Department of Orthopedic Surgery in [address] [phone] Cindy Walker D.P.M. [address] [place] [address] Discharge Disposition: Home or Self Care 04/11/2025 4:00 PM SOLUTION MANAGER Telemedicine Department of Sleep Medicine in [place], [place] [address] [place] [phone] Emilee Emanuel APRN, C.N.P., D.N.P., M.S.N. [address] [place] [phone] documented as of this encounter Visit Diagnoses Not on filedocumented in this encounter Additional Health Concerns Assessment Noted Time PHQ-9 Depression Total Score: 0 02/24/20 23 1:03 PM CDT documented as of this encounter Care Teams Warehouse Shipper Relationship Specialty Start Date End Date Allyn Alfredo M.D. [address] [place] [phone] PCP - General Family Medicine 04/05/21 documented as of this encounter
--- OUTSIDE RECORDS SUMMARY | 2025-01-16 13:57 | XMS_ITS ---
Author Organization [facility] Address [address] [place] [address] Care Team Providers Care Fuel Truck Driver Name Role Phone Allyn Alfredo M.D. 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 6:55 VASCULAR SURGERY IMAGE EXAM Routine 11/01/2024 [...] B SURFACE ANTIGEN Routine 04/21/2024 9:09 AM RELATIONS SPECIALIST ALBUMIN, RANDOM, U Routine 01/08/2023 12:27 PM CDT Diabetes Mellitus Type 2 With Diabetic Nephropathy (HCC) BI BREAST SCREENING BILATERAL Routine 06/08/2015 10:33 AM RELATIONS SPECIALIST from Last 3 Months or Most Recently Relevant to Health Maintenance Allergies Active Allergy Reactions Criticality Noted Date [...] 3 5 10/18/19 26 Active blood-glucose sensor ([employer] G7 Sensor) device Apply to skin replace every 10 days 10 each 11/23/2024 2:04 PM CDT 5 02/29/20 25 Active allopurinoL (Zyloprim) 100 mg tablet TAKE 1 TABLET DAILY 90 tablet 3 5 Active acetaminophen (TylenoL) 325 mg tablet Take 2 tablets (650 mg total) by mouth 4 (four) times a day. 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) Anticoagulant Treatment 02/10 Bradycardia 03/08/2024 Congestive Heart Failure 09/22/2023 Hemorrhage Vitreous Left 07/09/2023 Hemodialysis Status 07/09/2023 Atrial Fibrillation Paroxysmal 06/26/2023 Infarction Spleen 03/19/2023 Pain Generalized Abdominal 03/13/2023 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/29/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 Anemia Of Chronic Renal Disease 02/05/2018 Cataract Senile Nuclear Sclerosis Right 10/02/19 18 Overview (10/01/2017): Added automatically from request for surgery [id number] Hypertensive Chronic Kidney Disease With Stage 5 [...] unspecified site of endometrium Radiculopathy Lumbar Immunizations Immunization Administration Dates Next Due HepB Adult 05/14/2021,,12/04/2020,2020 Influenza high dose QV(65 ye ars or older) (PF) 02/25/2021,02/28/2020,02/07/2019,2015,04/10/2015 Influenza, Unspecified 02/19/2023,2020,02/28/2020,2015,04/10/2015,03/11/2013,02/25/2010 PCV13 09/25/2014 PPD Test 04/15/2021,03/12/2020 PPSV23 06/14/2009 Pneumococcal Conjugate(PCV), Unspecified 06/14/2009 SARS-COV-2 (COVID-19) - MODERNA(Discontinued) 09/23/2021,03/27/2021,06/29/2020,2020 SARS-COV-2 (COVID-19) - PFIZ ER BIVALENT TS(Discontinued)(12 YEARS OR OLDER) 03/21/2022 Td (Adult), adsorbed 06/14/2009 Tdap 08/28/2020,06/14/2009 influenza trivalent high dos e (HD)(PF) 03/12/2023,03/04/2022,02/14/2022,2018,03/19/2018,03/30/2017 Social History Tobacco Use Types Packs/Day Years [...] for daily living? No 12/15/2024 [facility] Utilities Answer Date Recorded In the past 12 months has th e electric, gas, oil, or water company threatened to shut off services in your home? No 12/15/2024 Depression Answer Date Recor ded PHQ-9 Total Score (max 27) 0 02/23 Housing Stability Answer Date Recorded What is your living situation today? I have a [facility] place to live 12/15/2024 Education Answer Date Recorded What is the highest level of school you have completed or the highest degree you have received? Some college, no degree 10/24/2018 Comments No Sex and Gender Information Value Date Recorded Sex Assigned at Female 03/27/2017 3:30 PM RELATIONS SPECIALIST Legal Sex Female 10:26 AM RELATIONS SPECIALIST Gender Identity Female 03/27/2017 3:30 PM RELATIONS SPECIALIST Sexual Orientation Straight 03/27/2017 3: 30 PM RELATIONS SPECIALIST Occupation Industry Job Start Date Job [...] Mass Index 28.95 11/14/2024 7:00 PM CDT Results * Glucose, POCT (11/17/2024 11:44 AM [...] LAB POCT ORDERABLES-MANUAL Marilou l Result POC [employer] [facility] [address] [place] [address], [facility] PCDE [facility] POC [address] [place] [address] * (ABNORMAL) Renal Function Panel (11/16/2024 3:45 [...] P.A.-C. LAB BLOOD ADD-ON Final Res ult [address] [address], [facility] [address] [address] * (ABNORMAL) CBC no call back, reflex [...] 4:04 PM CDT 11/15/2024 4:19 PM CDT Nory Lucio P.A.-C. LAB BLOOD NON ADD-ON Final Result [facility] [address] [place] [address], [facility] DTL Formerly named [facility] [address] [place] [address] [facility] [address] [place] [address] * (ABNORMAL) CBC without Differential (11/15/2024 3:49 [...] P.A.-C., M.S. LAB BLOOD ADD-ON Final Result [facility] [address] [place] [address], [facility] [address] [place] [address] * ECG 12 Lead (11/14/2024 8:03 PM CDT) Only the most recent of4 resultswithin the time period is included. Ventricular Rate ECG/Min 98 BPM MUSE [place] Interval 180 ms MUSE QRSD Interval 98 ms MUSE QT Interval 362 ms MUSE QTC Interval 462 ms MUSE P [place] 52 degrees MUSE R [place] -8 degrees MUSE T Wave [place] 94 degrees MUSE 11/14/2024 8:03 PM CDT [...] ORDERABLES Final Re sult Performing Organization Address City/[facility]/ZIP Co de Phone Number MUSE NA * [...] 6:30 PM CDT 11/14/2024 6:56 PM CDT Nevin Murcia P.A.-C., M.S. LAB BLOOD TROPONI N Final Result Performing Organization Address City/[facility]/ZIP Co de Phone Number [facility] [address] [place] [address], [place] DTL Formerly named [facility] [address] [place] [address] * HBs Antigen Scrn, Serum (11/14/2024 2:05 PM CDT) Pathologist [facility] HBs Antigen Scrn, S Negative Negative 11/14/2024 8:54 PM CDT [facility] Blood (Blood, Venous) 11/14/2024 2:05 PM CDT 11/14/2024 7:18 PM CDT Elia RobertsS. LAB MICROBIOLOGY - B LOOD ORDERABLES Final Result Performing Organization Address City/[facility] Co de Phone Number 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 [address] [place] [address] [facility] [address] [place] [address] * HBc Total Ab Scrn, Serum (11/14/2024 2:05 PM CDT) HBc Total Ab Scrn, S Negative Negative 11/14/2024 8:54 PM CDT [facility] Blood (Blood, Venous) 11/14/2024 2:05 PM CDT 11/14/2024 7:18 PM CDT Elia RobertsS. LAB MICROBIOLOGY - B LOOD ORDERABLES Final Result Performing Organization Address [facility] Co de Phone Number 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 [address] [place] [address] [facility] [address] [place] [address] * HBs Antibody Scrn, Serum (11/14/2024 2:05 PM CDT) HBs Antibody Scrn, S Negative 11/14/2024 8:54 PM CDT [facility] Comment: Patient is NOT immune to HBV infection. Consumption of high-dose biotin supplement within 12 hours of blood collection for this test can cause false-negative results. ----REFERENCE VALUE---- Unvaccinated: Negative Vaccinated: Positive HBs Antibody, Quantitative, S 5.6 mIU/mL 11/14/2024 8:54 PM CDT [facility] Comment: ----REFERENCE VALUE---- Unvaccinated: <8.5 mIU/mL Vaccinated: >=11.5 mIU/mL Blood (Blood, Venous) 11/14/2024 2:05 PM CDT 11/14/2024 7:18 PM CDT Elia KennedyB.S. LAB MICROBIOLOGY - B LOOD ORDERABLES Final Result 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 [address] [place] [address] [facility] [address] [place] [address] * (ABNORMAL) Troponin T, Baseline with 2 Hour/6 Hour Reflex Biomarker Panel (11/14/2024 2:05 PM CDT) Only the most recent of2 resultswithin the time period is included. Pathologist [facility] Troponin T, Baseline, 5th gen 140(H) <=10 ng/L 11/14/2024 3:14 PM CDT DT Comment:Consider acute myoca rdial injury Blood (Blood, Venous) 11/14/2024 2:05 PM CDT 11/14/2024 2:39 PM CDT Nevin Murcia P.A.-C., M.S. LAB BLOOD TROPONI N Final Result Performing Organization Address [facility]/ZIP Co de Phone Number [facility] [address] [place] [address], [facility] [address] [place] [address] * HCV Ab w/Reflex to HCV PCR, Serum (11/14/2024 2:05 PM CDT) [facility] HCV Ab, S Negative Negative 11/14/2024 8:54 PM CDT [facility] Comment: Consumption of high-dose biotin supplement within 12 hours of blood collection for this test can cause false-negative results. Blood (Blood, Venous) 11/14/2024 2:05 PM CDT 11/14/2024 7:18 PM CDT Elia Vieira.S. LAB MICROBIOLOGY - B LOOD ORDERABLES Final Result Performing Organization Address City/[facility]/ZIP Co de Phone Number 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 [address] [place] [address] [facility] [address] [place] [address] * DX Chest Portable 1 View (11/14/2024 [...] in stable positionprojecting over the right atrium. us Ne Franz APRN, C.N.P. IMG DIAGNOSTIC I MAGING PROCEDURES Final Result * SARS Coronavirus 2, PCR Rapid Symptomatic (11/14/2024 8:54 AM CDT) Only the most recent of2 resultswithin the time period is included. SARS CoV-2, PCR, Rapid, V Undetected Undetected 11/14/2024 9:01 AM CDT CNFL SARS Coronavirus 2, Source, Rapid Swab, Nasopharynx 11/14/2024 8:56 AM CDT FL Swab (Nasopharynx) 11/14/2024 8:54 AM CDT 11/14/2024 8:56 AM CDT us Ne Franz APRN, C.N.P. LAB MICROBIOLOGY - GENERAL ORDERABLES Final Result [facility] LAB [address] [place] [address], [facility] in [address] [address] * Influenza A/B and RSV, PCR, Point [...] POCT ORDERAB LES - DEVICE Final Result [address] [address], [facility] in [address] [address] * (ABNORMAL) Blood Gas, Venous, POCT, Blood [...] Not applicable % 11/14/2024 8:54 AM CDT [facility] Sample Type, Blood Gas, POCT FLAVIA 11/14/2024 8:54 AM CDT [facility] Blood (Blood, Venous) 11/14/2024 8:48 AM CDT 11/14/2024 8:50 AM CDT us Ne Franz APRN, C.N.P. LAB POCT ORDERAB LES - DEVICE Final Result Performing Organization Address City/[facility]/[place] [address], [place] [address] * (ABNORMAL) NT-Pro B-Type Natriuretic Peptide (BNP) (11/14/2024 8:48 AM CDT) NT-Pro BNP 38001(H) <=540 pg/mL 11/14/2024 9:49 AM CDT [facility] Comment: NT-proBNP values less than 300 pg/mL [...] APRN, C.N.P. LAB BLOOD ADD-ON Final Result [address] [address], [facility] [address] [address] * (ABNORMAL) Prothrombin Time (PT) (11/14/2024 8:48 [...] BLOOD ADD-ON Final Result Performing Organization Address City/State/[facility] Co de Phone Number [facility] [address] [place] [address], [facility] [place] [address] * (ABNORMAL) CBC with Differential, Blood (11/14/2024 8:48 AM CDT) Only the most recent of2 resultswithin the time period is included. [facility] Hemoglobin 9.7(L) 11.6 - 15.0 g/dL 11/14/2024 [...] BLOOD ADD-ON Final Result Performing Organization Address City/State/[facility] Co de Phone Number [facility] [address] [place] [address], [facility] CNFL [facility] [place] [address] * (ABNORMAL) Basic Metabolic Panel (11/14/2024 8:48 [...] APRN, C.N.P. LAB BLOOD ADD-ON Final Result [facility] LAB [address] [place] [address], [facility] CNFL [facility] in [address] [address] * Bacterial Culture, Aerobic + Susceptibility (11/01/2024 1:41 PM CDT) Bacterial Culture, Aerobic + Susc No growth after 5 days of incubation. 11/07/2024 9:22 AM CDT DTL Tissue (Vein Segment) 11/01/2024 1:41 PM CDT us Rika Oliveros M.D. LAB MICROBIOLOGY - GENERA L ORDERABLES Final Result [facility] [address] [place] [address], [place] [facility] [address] [place] [address] * Mycobacterial Culture (11/01/2024 1:41 PM CDT) Mycobacterial Culture No growth after 42 days of incubation . 12/14/2024 1:02 AM CDT DTL Tissue (Vein Segment) 11/01/2024 1:41 PM CDT us Rika Oliveros M.D. LAB MICROBIOLOGY - GENERA L ORDERABLES Final Result Performing Organization Address City/[facility]/ZIP Co de Phone Number [facility] [address] [place] [address], [facility] [address] [place] [address] * Fungal Smear (11/01/2024 1:41 PM CDT) Fungal Smear Negative. 11/01/2024 9:54 PM CDT DTL Tissue (Vein Segment) 11/01/2024 1:41 PM CDT us Rika Oliveros M.D. LAB MICROBIOLOGY - GENERA L ORDERABLES Final Result Performing Organization Address City/[facility]/ZIP Co de Phone Number [facility] [address] [place] [address] * Acid Fast Smear for Mycobacterium (11/01/2024 1:41 PM CDT) Acid Fast Smear For Mycobacterium Negative. 11/02/2024 4:56 AM CDT DT Vein Segment 11/01/2024 1:41 PM CDT 11/01/2024 2:07 PM CDT Comment:Specimen Source Site : Tissue, RIGHT CEPHALIC VEIN PSEUDOANEURYSM us Rika Oliveros M.D. LAB MICROBIOLOGY - GENERA L ORDERABLES Final Result Performing Organization Address City/[facility]/ZIP Co de Phone Number [facility] [address] [place] [address], [facility] [address] [place] [address] * Gram Stain (11/01/2024 1:41 PM CDT) Gram Stain No organisms seen. White blood cells, Few. 11/01/2024 5:50 PM CDT DTL Tissue (Vein Segment) 11/01/2024 1:41 PM CDT us Rika Oliveros M.D. LAB MICROBIOLOGY - GENERA L ORDERABLES Final Result Performing Organization Address [facility]/ZIP Co de Phone Number [facility] [address] [place] [address] * Fungal Culture, Routine (11/01/2024 1:41 PM CDT) Fungal Culture, Routine No growth after 24 days of incubation. 11/26/2024 1:02 AM CDT DTL Tissue (Vein Segment) 11/01/2024 1:41 PM CDT us Rika Oliveros M.D. LAB MICROBIOLOGY - GENERA L ORDERABLES Final Result Performing Organization Address [facility] Co de Phone Number [facility] [address] [place] [address], [facility] [address] [place] [address] * Bacterial Culture, Anaerobic + Susceptibility (11/01/2024 1:41 PM CDT) Bacterial Culture, Anaerobic + Susc No growth after 14 days of incubation. 11/15/2024 7:44 AM CDT DTL Tissue (Vein Segment) 11/01/2024 1:41 PM CDT us Rika Oliveros M.D. LAB MICROBIOLOGY - GENERA L ORDERABLES Final Result Performing Organization Address City/[facility]/ZIP Co de Phone Number [facility] [address] [place] [address], [facility] [address] [place] [address] * LDA ANE ENDOTRACHEAL AIRWAY (11/01/2024 12:30 [...] In System IMG NON RAD IMAGING PROCE MADELYN Final Result [facility] NA * Bacterial Culture, Aerobic + Susceptibility, Urine (10/18/2024 12:16 PM CDT) Urine Culture Urogenital microbiota, susceptibilities not performed per laboratory criteria. 10/19/2024 3:34 PM CDT ECLR Urine (Urine, Midstream) 10/18/2024 12:16 PM CDT 10/18/2024 9:14 PM CDT Comment:Specimen Source Site : Urine Cral Dhaliwal P.A.-C. LAB MICROBIOLOGY - GENERAL ORDERABLES Final Result [facility] [address] [place] [address], [facility] ECLR [facility] [place] [address] * (ABNORMAL) Urinalysis, with Microscopic: Urine, Midstream [...] 8.0 10/18/2024 12:22 PM CDT CNFL Specific [place] 1.020 1.001 - 1.035 10/18/2024 12:22 PM [...] P.A. LAB URINE ORDERA BLES Final Result Performing Organization Address [facility]/State/[facility] Co de Phone Number [facility] [address] [place] [address], [facility] CNFL [facility] in [address] [address] * CT Abdomen Pelvis without IV Contrast [...] up to 30 mm. 3. Atrophic bilateral sun'aq kidneys with cysts, including a Bosniak 2F [...] colonic diverticula. Normal appendix. Cholelithiasis. Atrophic bilateral sun'aq kidneys with cysts, including a Bosniak 2F [...] fewcolonic diverticula. Normal appendix. Cholelithiasis. Atrophic bilateral sun'aq kidneys with cysts, including aBosniak 2F cyst [...] up to 30 mm. 3. Atrophic bilateral sun'aq kidneys with cysts, including a Bosniak 2Fcyst in the lower pole of the right kidney which was better characterizedon CT performed on 03/18/2023 but appears grossly unchanged in size. 4. Additional nonacute/chronic findings as detailed. Min Montero P.A.-C., P.A. IMG CT PROCEDURE S Final Result * DX [...] AND LATERAL 2 VIEWS Procedure Note Bala Love M.D. - 10/18/2024 EXAM: DX CHEST AP [...] 10:45 AM CDT 10/18/2024 10:50 AM CDT Carl Dhaliwal P.A.-C. LAB BLOOD ADD-ON Final Result [facility] [address] [place] [address], [facility] CNFL [facility] [place] [address] * (ABNORMAL) Comprehensive Metabolic Panel (10/18/2024 10:45 [...] P.A.-C., P.A. LAB BLOOD ADD-ON Final Result [facility] [address] [place] [address], [facility] CNFL [facility] [place] [address] * CT Chest without IV Contrast (08/26/2024 [...] - 5.6 % 08/25/2024 2:13 PM CDT [facility] Blood (Blood, Venous) 08/25/2024 1:58 PM CDT 08/25/2024 1:59 PM CDT Allyn Ryan M.D. LAB BLOOD ADD-ON Final Result [facility] [address] [place] [address], [facility] in [address] [address] * Hepatitis B Surface Antigen (04/21/2024 9:09 AM RELATIONS SPECIALIST) HBs Antigen, S Negative Negative 04/21/2024 1:22 PM RELATIONS SPECIALIST [facility] Blood (Blood, Venous) 04/21/2024 9:09 AM RELATIONS SPECIALIST 04/21/2024 12:30 PM RELATIONS SPECIALIST Gabby Tucker APRN.N.P. , M.S.N. LAB MICROBIOLOGY - BLOOD ORDERABLES Final Result 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 [address] [place] [address] [facility] [address] [place] [address] * (ABNORMAL) Albumin, Random, Urine (01/08/2023 12:27 PM CDT) Microalbumin 890.9 mg/L 01/08/2023 1:09 PM CDT CNFL Creatinine 145 mg/dL 01/08/2023 12:49 PM CDT CNFL Albumin/Creatinin e Ratio 614(H) <25 mg/g 01/08/2023 1:09 PM CDT CNFL Urine (Urine, Midstream) 01/08/2023 12:27 PM CDT 01/08/2023 12:36 PM CDT us Allyn Ryan M.D. LAB URINE ORDERAB LES Final Result Performing Organization Address City/State/[facility] Co de Phone Number [facility] [address] [place] [address], [facility] CNFL [facility] in [address] [address] * BI Breast Screening Bilateral (06/08/2015 10:33 AM RELATIONS SPECIALIST) Anatomical Region Laterality Modality Breast Bilateral Mammography 06/08/2015 10:3 3 AM RELATIONS SPECIALIST Impressions 06/08/2015 11:00 AM RELATIONS SPECIALIST Negative. RECOMMENDATION: Annual screening mammography. BI-RADS ASSESSMENT: 1: Negative. LETTER: L1/2S Electronically signed by: Miguel Rick MD [id number] 08-Jun-2015 11:00 Narrative 06/08/2015 11:00 AM RELATIONS SPECIALIST 08-Jun-2015 10:33:00 Exam: Mammo Screen Bilat Indications: screening ORIGINAL REPORT - 08-Jun-2015 11:00:00 EXAM: Digital Screening Mammography Bilateral Computer-aided detection equipment was used during interpretation. COMPARISON: Prior exams were available for comparison. DENSITY: b. There are scattered areas of fibroglandular density. FINDINGS: No mammographic findings of malignancy. Procedure Note Miguel Rick M.D. - 08/06/2017 08-Jun-2015 10:33:00 Exam: Mammo [...] by: Miguel Rick MD [phone] 08-Jun-2015 11:00 Allyn Ryan M.D. IMMargarita BI PROCEDURES Final Result from Last 3 Months or Most Recently Relevant to Health Maintenance
--- NOTE | 2025-01-16 14:03 | CRLHL7_ITS ---
For Patients: As a result of the Century Cures Act, medical imaging exams and procedure reports are released immediately into your electronic medical record. You may view this report before your referring provider. If you have questions, please contact your health care provider. Indication: Neuro deficits Technique: MRI Brain: Noncontrast sagittal T1, axial FLAIR, T2, and diffusion weighted sequences are provided. MRA Head: 3D [id number] MR angiogram of the [id number] with 3D MIP projections were submitted. Comparison: CT head from earlier same day Findings: MRI Brain: No evidence for recent hemorrhage or infarct. No midline shift or mass effect, hydrocephalus or herniation. Mild prominence of the ventricles and cortical sulci compatible with generalized cerebral volume loss. Small foci of T2/FLAIR hyperintensities scattered throughout the cerebral white matter and fanny, typical of chronic microangiopathy. Partially empty sella configuration. Unremarkable bone marrow signal. Mild mucosal thickening throughout the ethmoid air cells. No paranasal sinus air-fluid level or mastoid effusion. Bilateral lens implants. MRA Head: Patient motion artifact degrades image quality and limits evaluation. The intracranial segments of the internal carotid arteries and basilar artery appear grossly patent. Suspect 3-4 mm superiorly directed left paraclinoid ICA aneurysm. Suggestion of additional small focal outpouchings, laterally from the left cavernous ICA, posterior inferiorly from the bilateral MCA bifurcations, may be artifactual. The anterior middle and posterior cerebral arteries and proximal branches appear patent. No high-flow AV malformation. No high-grade stenosis. Impression: MRI brain: 1. No evidence of acute intracranial abnormality. 2. Mild generalized cerebral volume loss and mild chronic microangiopathy changes. MRA head: 1. Motion degraded exam, limiting evaluation. 2. 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 3. Questionable smaller focal outpouchings at the left cavernous ICA and bilateral MCA bifurcations, potentially artifactual. 4. No convincing evidence of intracranial large vessel occlusion or high-grade stenosis. Dictated by Abby Baca MD @ 01/16/2025 3:43:15 PM (Electronically Signed)
--- NOTE | 2025-01-16 14:03 | CRLHL7_ITS ---
For Patients: As a result of the Century Cures Act, medical imaging exams and procedure reports are released immediately into your electronic medical record. You may view this report before your referring provider. If you have questions, please contact your health care provider. Indication: Neurologic deficits. Technique: [id number] MRA images of the neck. Comparison: None. Findings: Artifact degrades image quality. The visualized common carotid arteries are widely patent. The visualized internal carotid arteries are widely patent. The right vertebral artery is dominant. The visualized vertebral arteries are widely patent. Impression: 1. Artifact degrades image quality. 2. Wide patency of the visualized cervical arteries. Dictated by Víctor Pollack MD @ 01/16/2025 4:01:53 PM (Electronically Signed)
[2025-01-16] MEDS: ONDANSETRON 2 MG/ML inj 4 MG IVP (14:20)
[2025-01-16 14:33] LABS: Hematocrit* 42.2 % (33.0-51.0); Hemoglobin* 13.2 gm/dL (12.0-16.0); Immature Granulocytes Abs Auto 0.00 K/uL (0.00-0.30); Immature Granulocytes Pct Auto 0.0 %; Mean Corpuscular HGB Conc 31 gm/dL (32-36); Mean Corpuscular Hemoglobin 31 pg (26-34); Mean Corpuscular Volume 98 fL (80-100); RDW Coefficient of Variation % 16.2 % (11.5-15.5); Red Blood Count* 4.29 m/uL (4.00-5.20); White Blood Count* 3.77 K/uL (4.50-11.00)
[2025-01-16 14:37] LABS: Lymphocytes Absolute Auto 0.70 K/uL (0.90-2.90); Slide Review Reflex No
[2025-01-16 14:46] LABS: Albumin* 4.6 g/dL (3.3-5.0); Chloride* 95 mmol/L (96-114); Potassium* 4.0 mmol/L (3.6-5.1); Sodium* 135 mmol/L (135-149)
[2025-01-16 14:48] LABS: Blood Urea Nitrogen* 38 mg/dL (7-30); Creatinine* 5.0 mg/dL (0.5-1.5); Est. Creatinine Clearance* 7.30; Estimated Glomerular Filt Rate 8 ml/min
[2025-01-16 14:49] LABS: Alanine Aminotransferase* 21 U/L (4-35); Alkaline Phosphatase* 196 U/L (40-150); Anion Gap 12 mEq/L (7-15); Aspartate Amino Transferase* 33 U/L (12-35); Bilirubin Total* 0.7 mg/dL (0.1-1.5); Calcium* 9.2 mg/dL (8.4-10.6); Carbon Dioxide* 28 mmol/L (20-32); Glucose* 129 mg/dL (60-115); Total Protein* 7.9 g/dL (6.0-8.3)
[2025-01-16 15:23] LABS: Troponin, Point-of-Care* 0.03 ng/ml (0.01-0.04)
--- NOTE | 2025-01-16 17:32 | CRLHL7_ITS ---
For Patients: As a result of the Century Cures Act, medical imaging exams and procedure reports are released immediately into your electronic medical record. You may view this report before your referring provider. If you have questions, please contact your health care provider. INDICATION: Shortness of breath, chest pain. TECHNIQUE: Chest 1 view. COMPARISON: None. FINDINGS: Cardiovascular and mediastinum: Heart size and vasculature are normal in caliber and appearance. Dual-lumen central venous catheter tip terminates over the right atrium. Lungs and pleural spaces: Lungs are clear. No pleural effusion, or pneumothorax. Bones and soft tissues: Unremarkable for age. IMPRESSION: No evidence of an acute pulmonary process. Dictated by Dragan Awad MD @ 01/16/2025 6:15:26 PM (Electronically Signed)
--- NOTE | 2025-01-16 18:15 | ED.NEUROSD ---
HPI - Neuro Symptoms/Deficit General Date Seen: 01/16/25 <Odessa Horn MD - Last Filed: 01/16/25 20:13> Chief Complaint: Neuro Symptoms/Altered Deficit <Odessa Horn MD - Last Filed: 01/16/25 20:13> Stated Complaint: Stroke <Odessa Horn MD - Last Filed: 01/16/25 20:13> Time Seen by Provider: 01/16/25 14:03 <Odessa Horn MD - Last Filed: 01/16/25 20:13> Source: patient, family, EMS, RN notes reviewed and old records reviewed <Odessa Horn MD - Last Filed: 01/16/25 20:13> Mode of arrival: EMS <Odessa Horn MD - Last Filed: 01/16/25 20:13> Limitations: altered mental status <Odessa Horn MD - Last Filed: 01/16/25 20:13> History of Present Illness HPI Narrative: Concetta is a very pleasant 79-year-old female with a history of diabetes, gout, hyperlipidemia and kidney failure currently on dialysis who comes to the emergency room via EMS after she had the stroke like symptoms while dialyzing. Patient initially son risk advisor Dr. Aries schneider who continuing right upper extremity pain inpatient and plan for ultrasound. Following that she did have dialysis. At approximately 1300 staff noted that her blood pressure went up and then she started having slurred speech a facial droop and weakness. She also had nausea and was vomiting. EMS arrived felt that she did have a facial droop although by the time she got to the hospital it was improved. They felt that she had symmetrical save all operator strength but she was very weak and she had been vomiting. I met the patient in the back hallway. She notes pain in her legs and cramping but denies headache visual changes or abdominal pain. She does still feel nauseated. She has not had any recent falls cough cold congestion or fevers. Patient noted that she still does make some urine going to the bathroom about once a day. Later in patient's of visit and stated that she probably passed out and stated that this has happened to her before. After initial neurological consult as well as laboratory values I spoke with and daughter who notes that when and has cramps in her legs it usually means she has an infection or some sort of sepsis. She also notes that the dialysis nurse called her and did state that and Concetta had in actually passed out-this not reported to me initially. Unsure of how long she was not alert. Sounds like she was also somewhat confused after this initially happened according to her daughter. Patient's daughter also notes that she did not have a lot of fluid taken off today. In the past she has had to be hospitalized down at [facility] or [facility] in [place]. She tells me to talk to the patient's Nephrology team 1st if she needs hospitalization. <Odessa Horn MD - Last Filed: 01/16/25 20:13> Related Data Home Medications: Home Medications ?Medication ?Instructions ?Recorded ?Confirmed acetaminophen 300 mg-codeine 30 mg 1 tab PO DAILY 06/24/23 06/24/23 tablet allopurinol 100 mg tablet 100 mg PO DAILY 06/24/23 06/24/23 amlodipine 5 mg tablet 5 mg PO DAILY 06/24/23 06/24/23 insulin glargine 100 unit/mL (3 unit subcut 06/24/23 mL) subcutaneous pen (Basaglar KwikPen U-100 Insulin) pravastatin 40 mg tablet 40 mg PO DAILY 06/24/23 06/24/23 sertraline 25 mg tablet 25 mg PO DAILY 06/24/23 06/24/23 <Odessa Horn MD - Last Filed: 01/16/25 20:13> Allergies/Adverse Reactions: Allergies Allergy/AdvReac Type Severity Reaction Status Date / Time atorvastatin Allergy Unknown Verified 01/16/25 14:10 clonidine Allergy Unknown Verified 01/16/25 14:10 oxycodone Allergy Unknown Verified 01/16/25 14:10 Penicillins Allergy Unknown Verified 01/16/25 14:10 <Odessa Horn MD - Last Filed: 01/16/25 20:13> Review of Systems Status of ROS: Reports: 6 or more systems reviewed and unremarkable except as noted in History and below <Odessa Horn MD - Last Filed: 01/16/25 20:13> Const: Denies: fever or chills <Odessa Horn MD - Last Filed: 01/16/25 20:13> Eyes: Denies: change in vision or blurry vision <Odessa Horn MD - Last Filed: 01/16/25 20:13> ENMT: Denies: neck pain or nasal congestion <Odessa Horn MD - Last Filed: 01/16/25 20:13> Cardio: Denies: chest pain, palpitations or shortness of breath with exertion <Odessa Horn MD - Last Filed: 01/16/25 20:13> Resp: Denies: shortness of breath or cough <Odessa Horn MD - Last Filed: 01/16/25 20:13> GI: Reports: nausea and vomiting; Denies: abdominal pain, diarrhea or constipation <Odessa Horn MD - Last Filed: 01/16/25 20:13> : Reports: other (Still makes urine.) <Odessa Horn MD - Last Filed: 01/16/25 20:13> Musculo: Reports: extremity pain (Cramping in the upper leg); Denies: neck pain <Oedssa Horn MD - Last Filed: 01/16/25 20:13> Integ/Breast: Denies: rash or redness <Odessa Horn MD - Last Filed: 01/16/25 20:13> Neuro: Denies: headache or numbness in extremities <Odessa Horn MD - Last Filed: 01/16/25 20:13> Exam Narrative: Exam Narrative: Patient is awake and oriented. She is somewhat slow to respond but responds appropriately with nonslurred speech. EOM is full pupils are equal round face symmetrical with no facial droop. Tongue is midline. Neck is supple. Head is atraumatic normocephalic. Heart with a regular rate and rhythm and lungs are clear. Abdomen is soft nontender. Lower extremities without significant edema. Moving all extremities without difficulty. Stroke scale 0 vomit noted on shirt. <Odessa Horn MD - Last Filed: 01/16/25 20:13> Const: Vital Signs, click to edit/add: Vital Signs - 24 hr 01/16/25 13:58 01/16/25 13:59 01/16/25 14:00 Temperature 97.6 F Pulse Rate 90 92 Respiratory Rate 15 Blood Pressure 205/90 H 205/82 H Pulse Oximetry 89 89 Oxygen Delivery Me thod Room Air 01/16/25 14:00 01/16/25 14:02 01/16/25 14:15 Temperature Pulse Rate 90 91 89 Respiratory Rate 12 9 L 17 Blood Pressure 191/78 H Pulse Oximetry 88 91 90 Oxygen Delivery Me thod 01/16/25 14:17 01/16/25 14:30 01/16/25 14:31 Temperature Pulse Rate 85 87 82 Respiratory Rate 21 22 18 Blood Pressure 181/78 H 180/126 H Pulse Oximetry 90 93 [facility] 15:41 01/16/25 15:45 01/16/25 16:00 Temperature Pulse Rate 92 88 Respiratory Rate 18 17 20 Blood Pressure Pulse Oximetry 92 93 [facility] 01/16/25 16:15 01/16/25 16:30 01/16/25 17:14 Temperature Pulse Rate 74 89 Respiratory Rate 21 23 26 H Blood Pressure Pulse Oximetry 95 93 [facility] 01/16/25 17:15 01/16/25 17:16 01/16/25 17:30 Temperature Pulse Rate 83 Respiratory Rate 21 Blood Pressure 195/86 H Pulse Oximetry 94 [facility] 01/16/25 17:45 01/16/25 18:00 01/16/25 18:15 Temperature Pulse Rate 82 83 81 Respiratory Rate 21 15 21 Blood Pressure Pulse Oximetry 94 92 94 [facility] 01/16/25 18:30 01/16/25 18:45 01/16/25 19:00 Temperature Pulse Rate 82 86 Respiratory Rate 21 23 19 Blood Pressure Pulse Oximetry 93 95 [facility] 01/16/25 19:15 01/16/25 19:30 01/16/25 19:45 Temperature Pulse Rate Respiratory Rate 21 24 24 Blood Pressure Pulse Oximetry [facility] 01/16/25 20:00 01/16/25 20:01 01/16/25 20:28 Temperature Pulse Rate 90 90 Respiratory Rate 20 17 15 Blood Pressure 194/76 H Pulse Oximetry 94 93 [facility] 01/16/25 20:30 01/16/25 21:27 01/16/25 21:30 Temperature Pulse Rate 94 86 90 Respiratory Rate 22 21 18 Blood Pressure Pulse Oximetry 92 93 90 [facility] 01/16/25 21:44 01/16/25 21:45 01/16/25 22:00 Temperature Pulse Rate 89 90 87 Respiratory Rate 22 18 19 Blood Pressure 177/70 H Pulse Oximetry 92 91 89 Oxygen Delivery Me thod Room Air 01/16/25 22:01 01/16/25 22:15 01/16/25 22:30 Temperature Pulse Rate 89 87 87 Respiratory Rate 23 15 20 Blood Pressure 171/74 H Pulse Oximetry 89 92 90 Oxygen Delivery Me thod 01/16/25 22:45 01/16/25 23:00 01/16/25 23:01 Temperature Pulse Rate 87 87 88 Respiratory Rate 15 22 Blood Pressure 167/68 H Pulse Oximetry 92 94 92 Oxygen Delivery Me od Room Air <Odessa Horn MD - Last Filed: 01/16/25 20:13> Vital Signs, click to edit/add: Vital Signs - 24 hr 01/16/25 13:58 01/16/25 13:59 01/16/25 14:00 Temperature 97.6 F Pulse Rate 90 92 Respiratory Rate 15 Blood Pressure 205/90 H 205/82 H Pulse Oximetry 89 89 Oxygen Delivery Me thod Room Air 01/16/25 14:00 01/16/25 14:02 01/16/25 14:15 Temperature Pulse Rate 90 91 89 Respiratory Rate 12 9 L 17 Blood Pressure 191/78 H Pulse Oximetry 88 91 90 Oxygen Delivery Me od 01/16/25 14:17 01/16/25 14:30 01/16/25 14:31 Temperature Pulse Rate 85 87 82 Respiratory Rate 21 22 18 Blood Pressure 181/78 H 180/126 H Pulse Oximetry 90 93 87 L Oxygen Delivery Me thod 01/16/25 15:41 01/16/25 15:45 01/16/25 16:00 Temperature Pulse Rate 92 88 Respiratory Rate 18 17 20 Blood Pressure Pulse Oximetry 92 93 Oxygen Delivery Me od 01/16/25 16:15 01/16/25 16:30 01/16/25 17:14 Temperature Pulse Rate 74 89 Respiratory Rate 21 23 26 H Blood Pressure Pulse Oximetry 95 93 Oxygen Delivery Me thod 01/16/25 17:15 01/16/25 17:16 01/16/25 17:30 Temperature Pulse Rate 83 Respiratory Rate 21 Blood Pressure 195/86 H Pulse Oximetry 94 Oxygen Delivery Me thod Room Air 01/16/25 17:45 01/16/25 18:00 01/16/25 18:15 Temperature Pulse Rate 82 83 81 Respiratory Rate 21 15 21 Blood Pressure Pulse Oximetry 94 92 94 Oxygen Delivery Me thod 01/16/25 18:30 01/16/25 18:45 01/16/25 19:00 Temperature Pulse Rate 82 86 Respiratory Rate 21 23 19 Blood Pressure Pulse Oximetry 93 95 Oxygen Delivery Me thod 01/16/25 19:15 01/16/25 19:30 01/16/25 19:45 Temperature Pulse Rate Respiratory Rate 21 24 24 Blood Pressure Pulse Oximetry Oxygen Delivery Me thod 01/16/25 20:00 01/16/25 20:01 01/16/25 20:28 Temperature Pulse Rate 90 90 Respiratory Rate 20 17 15 Blood Pressure 194/76 H Pulse Oximetry 94 93 Oxygen Delivery Me thod 01/16/25 20:30 01/16/25 21:27 01/16/25 21:30 Temperature Pulse Rate 94 86 90 Respiratory Rate 22 21 18 Blood Pressure Pulse Oximetry 92 93 90 Oxygen Delivery Me thod 01/16/25 21:44 01/16/25 21:45 01/16/25 22:00 Temperature Pulse Rate 89 90 87 Respiratory Rate 22 18 19 Blood Pressure 177/70 H Pulse Oximetry 92 91 89 Oxygen Delivery Me thod Room Air 01/16/25 22:01 01/16/25 22:15 01/16/25 22:30 Temperature Pulse Rate 89 87 87 Respiratory Rate 23 15 20 Blood Pressure 171/74 H Pulse Oximetry 89 92 90 Oxygen Delivery Me thod 01/16/25 22:45 01/16/25 23:00 01/16/25 23:01 Temperature Pulse Rate 87 87 88 Respiratory Rate 15 22 Blood Pressure 167/68 H Pulse Oximetry 92 94 92 Oxygen Delivery Me thod Room Air <Bala Melara, DO - Last Filed: 01/16/25 23:59> Course Course ED Course: Differential diagnosis includes but is not limited to acute stroke, intracranial bleed, seizure, cardiac arrhythmia, electrolyte imbalance. Patient med in the back hallway proceeded immediately to CT. CTA a not done secondary to contrast used in this patient who although on dialysis still makes urine. Is able to speak to Neurology and they do suggest MRI/MRA head and neck without contrast in lieu of the CTA since patient has had resolution of symptoms. <Odessa Horn MD - Last Filed: 01/16/25 20:13> Reevaluation(s) Reevaluation #1: After discussion with patient's daughter have added blood culture, urinalysis even if a cath urine is necessary. Daughter states that when her mom has this happen she usually has an infection. Have also added a chest x-ray. Fortunately head CT negative for acute findings. MRI/MRA negative for acute findings but did show a 3-4 mm aneurysm. <Odessa Horn MD - Last Filed: 01/16/25 20:13> Consultations Consultation #1: I had the pleasure of speaking to Dr. Sylvia cota. She is question loving a TIA although patient's symptoms are resolved. Did suggest possibility of Plavix, overnight observation and further evaluation tomorrow. Unfortunately we are unable to hospitalized here because of patient's dialysis status. After conversation with corporate learning consultant daughter was able to tell me that her mom actually did have a syncopal episode. Will plan on hospitalization at outside facility. <Odessa Horn MD - Last Filed: 01/16/25 20:13> Vital Signs Vital signs: Initial Vital Signs Pulse Rate 90 01/16/25 13:58 Blood Pressure 205/90 H 01/16/25 13:58 Blood Pressure Mean 128 H 01/16/25 13:58 Pulse Oximetry 89 01/16/25 13:58 Oxygen Delivery Method Room Air 01/16/25 13:58 Vital Signs Pulse Rate 90 01/16/25 13:58 Blood Pressure 205/90 H 01/16/25 13:58 Pulse Oximetry 89 01/16/25 13:58 Oxygen Delivery Method Room Air 01/16/25 13:58 Temperature 97.6 F 01/16/25 14:00 Pulse Rate 88 01/16/25 23:01 Respiratory Rate 22 01/16/25 23:01 Blood Pressure 167/68 H 01/16/25 23:01 Pulse Oximetry 92 01/16/25 23:01 Oxygen Delivery Method Room Air 01/16/25 23:01 <Odessa Horn MD - Last Filed: 01/16/25 20:13> Initial Vital Signs Pulse Rate 90 01/16/25 13:58 Blood Pressure 205/90 H 01/16/25 13:58 Blood Pressure Mean 128 H 01/16/25 13:58 Pulse Oximetry 89 01/16/25 13:58 Oxygen Delivery Method Room Air 01/16/25 13:58 Vital Signs Pulse Rate 90 01/16/25 13:58 Blood Pressure 205/90 H 01/16/25 13:58 Pulse Oximetry 89 01/16/25 13:58 Oxygen Delivery Method Room Air 01/16/25 13:58 Temperature 97.6 F 01/16/25 14:00 Pulse Rate 88 01/16/25 23:01 Respiratory Rate 22 01/16/25 23:01 Blood Pressure 167/68 H 01/16/25 23:01 Pulse Oximetry 92 01/16/25 23:01 Oxygen Delivery Method Room Air 01/16/25 23:01 <Bala Melara DO - Last Filed: 01/16/25 23:59> Medications Administered Medications: Discontinued Medications Generic Name Dose Route Start Last Admin Trade Name Freq PRN Reason Stop Dose Admin Fentanyl 25 mcg 01/16/25 19:45 01/16/25 19:58 Fentanyl 100 Mcg/2 Ml Inj IVP 01/16/25 19:46 25 mcg ONCE ONE Administration Ondansetron HCl 4 mg 01/16/25 14:07 01/16/25 14:20 Ondansetron 2 Mg/Ml Inj IVP 01/16/25 14:08 4 mg ONCE ONE Administration <Odessa Horn MD - Last Filed: 01/16/25 20:13> Discontinued Medications Generic Name Dose Route Start Last Admin Trade Name Freq PRN Reason Stop Dose Admin Fentanyl 25 mcg 01/16/25 19:45 01/16/25 19:58 Fentanyl 100 Mcg/2 Ml Inj IVP 01/16/25 19:46 25 mcg ONCE ONE Administration Ondansetron HCl 4 mg 01/16/25 14:07 01/16/25 14:20 Ondansetron 2 Mg/Ml Inj IVP 01/16/25 14:08 4 mg ONCE ONE Administration <Bala Melara DO - Last Filed: 01/16/25 23:59> MDM - Neuro Symptoms/Deficit MDM Narrative Medical decision making narrative: 1. Syncopal episode-not initially reported by EMS or nursing staff. Staff at dialysis talked to daughter about this. This has happened in the past. EKGs reassuring and troponin is 0.03. Repeat troponin normal at 0.02. Patient in sinus rhythm on the monitor while she has been here. 2. Questionable TIA -reports of facial droop slurred speech and weakness at dialysis. Symptoms with the exception of nausea vomiting resolved upon arrival. No evidence of acute stroke on CT or MRI/MRA. 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 Will need follow-up with neuro for further evaluation possible intervention. Neurologist is questioning TIA initially suggesting Plavix 75 mg daily with follow-up as an outpatient but given new evidence of syncopal episode feel patient would likely benefit from specialty consultation at tertiary care. 3. Renal failure with dialysis -patient still makes urine. Therefore did not give IV contrast. Obtaining urine at this time but results pending. Creatinine 5.0. 4. Disposition- transfer to tertiary care. At this time [facility] is on neuro divert. I did request possible cardiac admission with neuro consult as we do not have explanation for the syncopal event. Currently awaiting call back. If [facility] not available will need to find bed at [facility] or [place]. Addendum: Patient notes increasing leg pain. This is in the proximal thighs. Examination shows no significant abdominal pain but daughter states this is how she has had sepsis present the past. Chest x-ray without any evidence of infiltrate. We are awaiting urine collection for cath UA. Patient has no evidence of leukocytosis, cough, cellulitis. Currently awaiting results of noncontrast abdominal and pelvic CT. Will also give dose of fentanyl for discomfort while awaiting acceptance. Received a phone call from a cardiac nurse practitioner who also declines admission stating that patient likely needs neuro bed instead of Cardiology. I believe patient either needs neurology bed with cardiac consultation our cardiology bed with neuro consultation. Unfortunately male unable to accommodate our request at this time. Will look to [place] or [place] for neuro bed This case will be signed out to my colleague Dr. Tony flores for disposition. <Odessa Horn MD - Last Filed: 01/16/25 20:13> Patient was signed out to me pending transfer. We were unable transfer to [facility] so she was transferred to [facility]. Dr. Pimentel of the hospitalist group accepted her for transfer. Patient is agreeable to this plan. CT scan returned showing multiple chronic issues. There also was errors in consultation the could be inflammatory versus infectious. She is having no signs of infection at this time so will hold off on antibiotics. She will be transferred. <Bala Melara DO - Last Filed: 01/16/25 23:59> Medical Records Attestation: I reviewed the patient's medical records. <Odessa Horn MD - Last Filed: 01/16/25 20:13> Medical records narrative: Few records available from a [facility] <Odessa Horn MD - Last Filed: 01/16/25 20:13> Lab Data Attestation: I reviewed the patient's lab results. <Odessa Horn MD - Last Filed: 01/16/25 20:13> Labs: Lab Results 01/16/25 01/16/25 01/16/25 Range/Units 14:07 14:14 17:42 WBC 3.77 L (4.50-11.00) K/uL RBC 4.29 (4.00-5.20) m/uL Hgb 13.2 (12.0-16.0) gm/dL Hct 42.2 (33.0-51.0) % MCV 98 (80-100) fL MCH 31 (26-34) pg MCHC 31 L (32-36) gm/dL RDW Coeff of Samy 16.2 H (11.5-15.5) % Plt Count 127 L (140-440) K/uL Neut % (Auto) 69.3 (42.0-72.0) % Lymph % (Auto) 19.1 L (20-44) % Stafford % (Auto) 8.2 (0.0-11.0) % Eos % (Auto) 2.1 (0.0-7.0) % Baso % (Auto) 1.3 (0.0-3.0) % Neut # (Auto) 2.60 (1.7-7.0) K/uL Lymph # (Auto) 0.70 L (0.90-2.90) K/uL Stafford # (Auto) 0.30 (0.00-0.90) K/UL Eos # (Auto) 0.10 (0.00-0.50) K/uL Baso # (Auto) 0.00 (0.00-0.30) K/uL Abs Immat Gran (auto) 0.00 (0.00-0.30) K/uL Imm/Tot Granulo (auto) 0.0 % Sodium 135 (135-149) mmol/L Potassium 4.0 (3.6-5.1) mmol/L Chloride 95 L (96-114) mmol/L Carbon Dioxide 28 (20-32) mmol/L Anion Gap 12 (7-15) mEq/L BUN 38 H (7-30) mg/dL Creatinine 5.0 H (0.5-1.5) mg/dL Estimated Creat Clear 7.30 Estimated GFR 8 ml/min Glucose 129 H (60-115) mg/dL Calcium 9.2 (8.4-10.6) mg/dL Magnesium 2.2 (1.5-2.6) mg/dL Total Bilirubin 0.7 (0.1-1.5) mg/dL AST 33 (12-35) U/L ALT 21 (4-35) U/L Alkaline Phosphatase 196 H (40-150) U/L Total Protein 7.9 (6.0-8.3) g/dL Albumin 4.6 (3.3-5.0) g/dL Urine Color (Yellow) Urine Appearance (Clear) Urine pH (5.0-8.5) Ur Specific Browder (1.000-1.030) Urine Protein (Negative) Urine Glucose (UA) (Negative) Urine Ketones (Negative) Urine Blood (Negative) Urine Nitrite (Negative) Urine Bilirubin (Negative) Urine Urobilinogen (0.2-1.0) Ur Leukocyte Esterase (Negative) Urine RBC (0-2) Urine WBC (0-5) Ur Squamous Epith Cells (None-Few) Urine Bacteria (None) POC Troponin I 0.03 0.02 (0.01-0.04) ng/ml 01/16/25 Range/Units Unknown WBC (4.50-11.00) K/uL RBC (4.00-5.20) m/uL Hgb (12.0-16.0) gm/dL Hct (33.0-51.0) % MCV (80-100) fL MCH (26-34) pg MCHC (32-36) gm/dL RDW Coeff of Samy (11.5-15.5) % Plt Count (140-440) K/uL Neut % (Auto) (42.0-72.0) % Lymph % (Auto) (20-44) % Stafford % (Auto) (0.0-11.0) % Eos % (Auto) (0.0-7.0) % Baso % (Auto) (0.0-3.0) % Neut # (Auto) (1.7-7.0) K/uL Lymph # (Auto) (0.90-2.90) K/uL Stafford # (Auto) (0.00-0.90) K/UL Eos # (Auto) (0.00-0.50) K/uL Baso # (Auto) (0.00-0.30) K/uL Abs Immat Gran (auto) (0.00-0.30) K/uL Imm/Tot Granulo (auto) % Sodium (135-149) mmol/L Potassium (3.6-5.1) mmol/L Chloride (96-114) mmol/L Carbon Dioxide (20-32) mmol/L Anion Gap (7-15) mEq/L BUN (7-30) mg/dL Creatinine (0.5-1.5) mg/dL Estimated Creat Clear Estimated GFR ml/min Glucose (60-115) mg/dL Calcium (8.4-10.6) mg/dL Magnesium (1.5-2.6) mg/dL Total Bilirubin (0.1-1.5) mg/dL AST (12-35) U/L ALT (4-35) U/L Alkaline Phosphatase (40-150) U/L Total Protein (6.0-8.3) g/dL Albumin (3.3-5.0) g/dL Urine Color Light yellow (Yellow) Urine Appearance Slightly Cloudy A (Clear) Urine pH 8.5 (5.0-8.5) Ur Specific Browder 1.020 (1.000-1.030) Urine Protein 3+ A (Negative) Urine Glucose (UA) Trace A (Negative) Urine Ketones Negative (Negative) Urine Blood 2+ A (Negative) Urine Nitrite Negative (Negative) Urine Bilirubin Negative (Negative) Urine Urobilinogen 0.2 (0.2-1.0) Ur Leukocyte Esterase Trace A (Negative) Urine RBC 5-10 A (0-2) Urine WBC 5-10 A (0-5) Ur Squamous Epith Cells Few (None-Few) Urine Bacteria Few A (None) POC Troponin I (0.01-0.04) ng/ml <Odessa Horn MD - Last Filed: 01/16/25 20:13> Lab Results 01/16/25 01/16/25 01/16/25 Range/Units 14:07 14:14 17:42 WBC 3.77 L (4.50-11.00) K/uL RBC 4.29 (4.00-5.20) m/uL Hgb 13.2 (12.0-16.0) gm/dL Hct 42.2 (33.0-51.0) % MCV 98 (80-100) fL MCH 31 (26-34) pg MCHC 31 L (32-36) gm/dL RDW Coeff of Samy 16.2 H (11.5-15.5) % Plt Count 127 L (140-440) K/uL Neut % (Auto) 69.3 (42.0-72.0) % Lymph % (Auto) 19.1 L (20-44) % Stafford % (Auto) 8.2 (0.0-11.0) % Eos % (Auto) 2.1 (0.0-7.0) % Baso % (Auto) 1.3 (0.0-3.0) % Neut # (Auto) 2.60 (1.7-7.0) K/uL Lymph # (Auto) 0.70 L (0.90-2.90) K/uL Stafford # (Auto) 0.30 (0.00-0.90) K/UL Eos # (Auto) 0.10 (0.00-0.50) K/uL Baso # (Auto) 0.00 (0.00-0.30) K/uL Abs Immat Gran (auto) 0.00 (0.00-0.30) K/uL Imm/Tot Granulo (auto) 0.0 % Sodium 135 (135-149) mmol/L Potassium 4.0 (3.6-5.1) mmol/L Chloride 95 L (96-114) mmol/L Carbon Dioxide 28 (20-32) mmol/L Anion Gap 12 (7-15) mEq/L BUN 38 H (7-30) mg/dL Creatinine 5.0 H (0.5-1.5) mg/dL Estimated Creat Clear 7.30 Estimated GFR 8 ml/min Glucose 129 H (60-115) mg/dL Calcium 9.2 (8.4-10.6) mg/dL Magnesium 2.2 (1.5-2.6) mg/dL Total Bilirubin 0.7 (0.1-1.5) mg/dL AST 33 (12-35) U/L ALT 21 (4-35) U/L Alkaline Phosphatase 196 H (40-150) U/L Total Protein 7.9 (6.0-8.3) g/dL Albumin 4.6 (3.3-5.0) g/dL Urine Color (Yellow) Urine Appearance (Clear) Urine pH (5.0-8.5) Ur Specific Browder (1.000-1.030) Urine Protein (Negative) Urine Glucose (UA) (Negative) Urine Ketones (Negative) Urine Blood (Negative) Urine Nitrite (Negative) Urine Bilirubin (Negative) Urine Urobilinogen (0.2-1.0) Ur Leukocyte Esterase (Negative) Urine RBC (0-2) Urine WBC (0-5) Ur Squamous Epith Cells (None-Few) Urine Bacteria (None) POC Troponin I 0.03 0.02 (0.01-0.04) ng/ml 01/16/25 Range/Units Unknown WBC (4.50-11.00) K/uL RBC (4.00-5.20) m/uL Hgb (12.0-16.0) gm/dL Hct (33.0-51.0) % MCV (80-100) fL MCH (26-34) pg MCHC (32-36) gm/dL RDW Coeff of Samy (11.5-15.5) % Plt Count (140-440) K/uL Neut % (Auto) (42.0-72.0) % Lymph % (Auto) (20-44) % Stafford % (Auto) (0.0-11.0) % Eos % (Auto) (0.0-7.0) % Baso % (Auto) (0.0-3.0) % Neut # (Auto) (1.7-7.0) K/uL Lymph # (Auto) (0.90-2.90) K/uL Stafford # (Auto) (0.00-0.90) K/UL Eos # (Auto) (0.00-0.50) K/uL Baso # (Auto) (0.00-0.30) K/uL Abs Immat Gran (auto) (0.00-0.30) K/uL Imm/Tot Granulo (auto) % Sodium (135-149) mmol/L Potassium (3.6-5.1) mmol/L Chloride (96-114) mmol/L Carbon Dioxide (20-32) mmol/L Anion Gap (7-15) mEq/L BUN (7-30) mg/dL Creatinine (0.5-1.5) mg/dL Estimated Creat Clear Estimated GFR ml/min Glucose (60-115) mg/dL Calcium (8.4-10.6) mg/dL Magnesium (1.5-2.6) mg/dL Total Bilirubin (0.1-1.5) mg/dL AST (12-35) U/L ALT (4-35) U/L Alkaline Phosphatase (40-150) U/L Total Protein (6.0-8.3) g/dL Albumin (3.3-5.0) g/dL Urine Color Light yellow (Yellow) Urine Appearance Slightly Cloudy A (Clear) Urine pH 8.5 (5.0-8.5) Ur Specific Browder 1.020 (1.000-1.030) Urine Protein 3+ A (Negative) Urine Glucose (UA) Trace A (Negative) Urine Ketones Negative (Negative) Urine Blood 2+ A (Negative) Urine Nitrite Negative (Negative) Urine Bilirubin Negative (Negative) Urine Urobilinogen 0.2 (0.2-1.0) Ur Leukocyte Esterase Trace A (Negative) Urine RBC 5-10 A (0-2) Urine WBC 5-10 A (0-5) Ur Squamous Epith Cells Few (None-Few) Urine Bacteria Few A (None) POC Troponin I (0.01-0.04) ng/ml <Bala Melara DO - Last Filed: 01/16/25 23:59> Imaging Data CT scan - head: Attestation: I have reviewed the pertinent imaging results. <Odessa Horn MD - Last Filed: 01/16/25 20:13> My impression: By my read no evidence of acute intracranial bleed. <Odessa Horn MD - Last Filed: 01/16/25 20:13> Radiologist's impression: Mild diffuse cerebral volume loss. No mass effect or midline shift. Cha-white differentiation is maintained. No acute intracranial hemorrhage or pathologic extra-axial fluid collection. Suggested mild chronic microvascular ischemic changes. Intracranial atherosclerotic calcifications. Thinning of the ocular lenses. The calvarium is intact. Minimal paranasal sinus mucosal thickening. Mastoid air cells are clear. Impression: No acute intracranial hemorrhage or mass effect. <Odessa Horn MD - Last Filed: 01/16/25 20:13> MRI/MRI head neck: Attestation: I have reviewed the pertinent imaging results. <Odessa Horn MD - Last Filed: 01/16/25 20:13> Radiologist's impression: Neck MRI:Artifact degrades image quality. The visualized common carotid arteries are widely patent. The visualized internal carotid arteries are widely patent. The right vertebral artery is dominant. The visualized vertebral arteries are widely patent. Impression: 1. Artifact degrades image quality. 2. Wide patency of the visualized cervical arteries. MRI Brain: No evidence for recent hemorrhage or infarct. No midline shift or mass effect, hydrocephalus or herniation. Mild prominence of the ventricles and cortical sulci compatible with generalized cerebral volume loss. Small foci of T2/FLAIR hyperintensities scattered throughout the cerebral white matter and fanny, typical of chronic microangiopathy. Partially empty sella configuration. Unremarkable bone marrow signal. Mild mucosal thickening throughout the ethmoid air cells. No paranasal sinus air-fluid level or mastoid effusion. Bilateral lens implants. MRA Head: Patient motion artifact degrades image quality and limits evaluation. The intracranial segments of the internal carotid arteries and basilar artery appear grossly patent. Suspect 3-4 mm superiorly directed left paraclinoid ICA aneurysm. Suggestion of additional small focal outpouchings, laterally from the left cavernous ICA, posterior inferiorly from the bilateral MCA bifurcations, may be artifactual. The anterior middle and posterior cerebral arteries and proximal branches appear patent. No high-flow AV malformation. No high-grade stenosis. Impression: MRI brain: 1. No evidence of acute intracranial abnormality. 2. Mild generalized cerebral volume loss and mild chronic microangiopathy changes. MRA head: 1. Motion degraded exam, limiting evaluation. 2. 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 3. Questionable smaller focal outpouchings at the left cavernous ICA and bilateral MCA bifurcations, potentially artifactual. 4. No convincing evidence of intracranial large vessel occlusion or high-grade stenosis. <Odessa Horn MD - Last Filed: 01/16/25 20:13> Chest x-ray: Attestation: I have reviewed the pertinent imaging results. <Odessa Horn MD - Last Filed: 01/16/25 20:13> My impression: Do not note any infiltrates or widened mediastinum <Odessa Horn MD - Last Filed: 01/16/25 20:13> Radiologist's impression: Cardiovascular and mediastinum: Heart size and vasculature are normal in caliber and appearance. Dual-lumen central venous catheter tip terminates over the right atrium. Lungs and pleural spaces: Lungs are clear. No pleural effusion, or pneumothorax. Bones and soft tissues: Unremarkable for age. IMPRESSION: No evidence of an acute pulmonary process. <Odessa Horn MD - Last Filed: 01/16/25 20:13> CT scan abdomen pelvis: Attestation: I have reviewed the pertinent imaging results. <Bala Melara DO - Last Filed: 01/16/25 23:59> Radiologist's impression: 1. Numerous bilateral pulmonary nodules with superimposed confluent bilateral lower lobe consolidation likely indicative of multifocal infectious/inflammatory process. 2. Cholelithiasis without CT evidence of acute cholecystitis. 3. Healing fracture of the right inferior pubic ramus. 4. Moderate colonic stool burden. 5. Infrarenal abdominal aortic aneurysm measuring 3.0 cm. 6. Indeterminate left mid renal lesion measuring 1.4 cm possibly reflecting a cyst, however incompletely characterized on this exam. Consider further evaluation with outpatient renal ultrasound. Please note that all CT scans at this facility use dose modulation, iterative reconstruction, and/or weight-based dosing when appropriate to reduce radiation dose to as low as reasonably achievable. Dictated by Talha Sanchez MD @ 01/16/2025 9:04:29 PM <Bala Melara DO - Last Filed: 01/16/25 23:59> ECG Data Attestation: I personally reviewed and interpreted this ECG as follows: <Odessa Horn MD - Last Filed: 01/16/25 20:13> ECG interpretation date: 01/16/25 <dOessa Horn MD - Last Filed: 01/16/25 20:13> Interpretation: EKG by my read shows sinus rhythm at a rate of 89. 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 QT and OR intervals within normal limits. Poor R-wave progression noted. Otherwise I do not note any acute ST or T-wave changes. <Odessa Horn MD - Last Filed: 01/16/25 20:13> Discharge Plan Discharge Clinical Impression: Syncopal episodes, Brain TIA <Odessa Horn MD - Last Filed: 01/16/25 20:13> Patient Disposition: [facility] <Odessa Horn MD - Last Filed: 01/16/25 20:13> Condition: Improved <Odessa Horn MD - Last Filed: 01/16/25 20:13> Additional Instructions: Chronic finding seen on your CT scan that you can follow up with the primary care provider include 2. Cholelithiasis without CT evidence of acute cholecystitis. 3. Healing fracture of the right inferior pubic ramus. 4. Moderate colonic stool burden. 5. Infrarenal abdominal aortic aneurysm measuring 3.0 cm. 6. Indeterminate left mid renal lesion measuring 1.4 cm possibly reflecting a cyst, however incompletely characterized on this exam. Consider further evaluation with outpatient renal ultrasound. Please note that all CT scans at this facility use dose modulation, iterative reconstruction, and/or weight-based dosing when appropriate to reduce radiation dose to as low as reasonably achievable. <Odessa Horn MD - Last Filed: 01/16/25 20:13>
[2025-01-16 18:20] LABS: Troponin, Point-of-Care* 0.02 ng/ml (0.01-0.04)
--- NOTE | 2025-01-16 19:45 | CRLHL7_ITS ---
For Patients: As a result of the Century Cures Act, medical imaging exams and procedure reports are released immediately into your electronic medical record. You may view this report before your referring provider. If you have questions, please contact your health care provider. INDICATION: Syncope. TECHNIQUE: CT abdomen and pelvis without contrast. COMPARISON: None. FINDINGS: Lower chest: Numerous bilateral pulmonary nodules with more confluent superimposed bilateral lower lobe consolidation. Liver: Unremarkable. Gallbladder and bile ducts: Cholelithiasis. No gallbladder wall thickening or pericholecystic fluid. No biliary dilatation. Pancreas: Unremarkable. Spleen: Unremarkable. Adrenal glands: Unremarkable. Kidneys: Exophytic left mid renal lesion measuring 1.4 cm with attenuation slightly greater than simple fluid. Right renal cyst measuring 1.8 cm. No hydronephrosis or hydroureter. No obstructing calculi. GI tract: No bowel obstruction. No suspicious bowel wall thickening. Normal appendix. Moderate colonic stool burden. Vasculature: Atherosclerotic calcifications. Infrarenal abdominal aortic aneurysm measuring 3.0 cm. Lymph nodes: No suspicious lymphadenopathy. Peritoneum/Abdominal Wall: No ascites or pneumoperitoneum. No acute abdominal wall abnormality. Pelvis: Normal bladder. No suspicious adnexal mass. Bones: Healing fracture of the right inferior pubic ramus. Mild chronic appearing superior endplate height loss at L1. IMPRESSION: 1. Numerous bilateral pulmonary nodules with superimposed confluent bilateral lower lobe consolidation likely indicative of multifocal infectious/inflammatory process. 2. Cholelithiasis without CT evidence of acute cholecystitis. 3. Healing fracture of the right inferior pubic ramus. 4. Moderate colonic stool burden. 5. Infrarenal abdominal aortic aneurysm measuring 3.0 cm. 6. Indeterminate left mid renal lesion measuring 1.4 cm possibly reflecting a cyst, however incompletely characterized on this exam. Consider further evaluation with outpatient renal ultrasound. Please note that all CT scans at this facility use dose modulation, iterative reconstruction, and/or weight-based dosing when appropriate to reduce radiation dose to as low as reasonably achievable. Dictated by Talha Sanchez MD @ 01/16/2025 9:04:29 PM (Electronically Signed)
[2025-01-16 20:26] LABS: Appearance Urine Slightly Cloudy (Clear)
[2025-01-17] VITALS: PULSE 78; RESP 19; O2SAT 91
[2025-01-17 00:01] VITALS: BP 148/60; PULSE 81; RESP 19; O2SAT 92
[2025-01-17 00:15] VITALS: PULSE 82; RESP 20; O2SAT 91
[2025-01-17 00:30] VITALS: PULSE 75; RESP 20; O2SAT 91
[2025-01-17 00:35] VITALS: BP 152/63; RESP 18
== END 2025-01-17 01:08 | disposition short-term general hospital (02) ==
PROVIDERS: Family Medicine; Emergency Provider Student in an Organized Health Care Education/Training Program; PCP Internal Medicine Nephrology
DX: G45.9 Transient cerebral ischemic attack, unspecified (principal); R55 Syncope and collapse
CPT/HCPCS: 36415; 70450; 70544; 70547; 70551; 71045; 74176; 80053; 81001; 82962; 83735; 84484; 85025; 87040; 87086; 93005; 96374; 96375; 99284; 99285; 99291; J2405; J3010

== ENCOUNTER 2025-01-17 00:55 | Outpatient (CLI) | payer MEDICARE, BC, SELFPAY | END 2025-01-17 00:56 | disposition home or self-care (01) | LOC: AMB 01-19 15:52 | PROVIDERS: Visit Provider Family Medicine | DX: G45.9 Transient cerebral ischemic attack, unspecified (principal) | CPT/HCPCS: A0425; A0427 ==